=== PATIENT | male | born 1975 | race African-American/Black ===

== ENCOUNTER 2016-09-14 08:37 | Inpatient (IN) | payer MEDICAID ==
[~2016-09-14] VITALS: Ht 177.8 cm; Wt 72.6 kg
[~2016-09-14 08:37] MED LIST: ALBUTEROL SULF8.5 GM INH; DIGOXIN0.25 MG/5 GT; IPRATROPIU0.2 MG/1 M HHN; LACTULOSE20 GM/301 ORAL; LOVENOX10 M4 SUBQ; METOPROLOL TAR100 M1 GT; MIDODRINE HCL2.5 MG GT; NORCO 5-325 TA1 EACH ORAL; PANTOPRAZOLE SO40 MG GT; PHENYTOIN SODI100 MG GT; REGLAN5 MG GT; TEGRETOL200 MG GT; VALPROIC A250 MG/5 M PO; VANCOMYCIN1 GM/250 M IVPB; VITAMIN C500 M1 GT; ZOSYN 3.373.375 GM/1 IVPB
--- NOTE | 2016-09-14 08:38 | Emergency Room Report ---
History of Present Illness General Source: EMS Present Illness HPI Patient is a 41-year-old male with prior history of a persistent vegetative state the sent in by ambulance for increased heart rate. Patient was noted to have a prior history of being a G-tube in a dependent. The patient was noted to have increasing tachycardia. Patient was noted to have sinus tachycardia by paramedics. Patient was given digoxin by nursing staff with improvement in his heart rate. Patient was noted initially to have a heart rate approximately 180 Allergies: Coded Allergies: No Known Allergies (Unverified , 07/21/16) Patient History Past Medical History: see triage record Reviewed Nursing Documentation: PMH: Agreed, PSxH: Agreed Review of Systems All Other Systems: limited - by mental status Physical Exam Sp02 EP Interpretation: normal General Appearance: normal inspection, no apparent distress, other - Eyes open , doesn't follow command or withdraw. Head: normocephalic Eyes: bilateral eye PERRL ENT: normal pharynx Neck: other, tracheotomy Respiratory: chest non-tender, lungs clear, normal breath sounds Cardiovascular #1: tachycardia Gastrointestinal: normal bowel sounds, non tender, soft, other - gtube Musculoskeletal: other - decreased rom Neurologic: motor weakness, sensory deficit, Babinski Psychiatric: other Skin: other - multiple decubitus ulcers Procedures Critical Care Time Critical Care Time Patient had a critical medical condition which untreated could potentially result in life or limb threatening injury. Total critical care time excluding procedures approximately 45 minutes. Medical Decision Making Diagnostic Impression: Primary Impression: Tachycardia Additional Impressions: Severe sepsis Urinary tract infection Anemia Abnormal LFTs ER Course Patient presented for tachycardia. Differential diagnoses included was not limited to sepsis, tracheostomy obstruction, pulmonary embolism, hyperthyroidism , seizure among others. Because of complexity of patient's case laboratory testing and imaging studies were ordered.Patient was noted to be vent dependent was started on mechanical ventilation. Patient was noted to be febrile with a temperature greater than 103. The patient given rectal Tylenol. Blood cultures are obtained. The patient was noted to have indwelling left upper extremity PICC line. There is no surrounding erythema. DVT ultrasound was ordered due to patient's immobility and tachycardia. The patient was given IV fluids. Serum lactate was noted to be elevated consistent with severe sepsis. Dr. Wakefield was contacted for inpatient management Labs Test 09/14/16 08:40 09/14/16 08:50 09/14/16 09:23 White Blood Count 21.5 K/UL (4.8-10.8) Red Blood Count 3.05 M/UL (4.70-6.10) Hemoglobin 9.6 G/DL (14.2-18.0) Hematocrit 29.7 % (42.0-52.0) Mean Corpuscular Volume 97 FL (80-99) Mean Corpuscular Hemoglobin 31.3 PG (27.0-31.0) Mean Corpuscular Hemoglobin Concent 32.2 G/DL (32.0-36.0) Red Cell Distribution Width 16.2 % (11.6-14.8) Platelet Count 633 K/UL (150-450) Mean Platelet Volume 6.0 FL (6.5-10.1) Neutrophils (%) (Auto) % (45.0-75.0) Lymphocytes (%) (Auto) % (20.0-45.0) Monocytes (%) (Auto) % (1.0-10.0) Eosinophils (%) (Auto) % (0.0-3.0) Basophils (%) (Auto) % (0.0-2.0) Sodium Level 136 mEQ/L (135-145) Potassium Level 4.1 mEQ/L (3.4-4.9) Chloride Level 90 mEQ/L (98-107) Carbon Dioxide Level 30 mEQ/L (20-30) Anion Gap 16 (5-15) Blood Urea Nitrogen 22 mg/dL (7-23) Creatinine 0.6 mg/dL (0.7-1.2) Estimat Glomerular Filtration Rate > 60 mL/min (>60) Glucose Level 265 mg/dL (74-106) Lactic Acid Level 2.80 mmol/L (0.66-2.22) Calcium Level 9.2 mg/dL (8.6-10.2) Total Bilirubin 0.6 mg/dL (0.0-1.2) Aspartate Amino Transf (AST/SGOT) 151 U/L (5-40) Alanine Aminotransferase (ALT/SGPT) 139 U/L (3-41) Alkaline Phosphatase 1160 U/L (40-129) Total Creatine Kinase 34 U/L (38-174) Creatine Kinase MB 2.1 ng/mL (< 6.7) Creatine Kinase MB Relative Index 6.1 Troponin I < 0.30 ng/mL (<=0.30) Pro-B-Type Natriuretic Peptide 141 pg/mL (0-125) Total Protein 7.5 g/dL (6.6-8.7) Albumin 2.8 g/dL (3.5-5.2) Globulin 4.7 g/dL Albumin/Globulin Ratio 0.5 (1.0-2.7) Lipase 13 U/L (< 60) Digoxin Level 1.0 ng/mL (0.5-2.0) Urine Color Yellow Urine Appearance Slightly cloudy Urine pH 7 (4.5-8.0) Urine Specific Elmo 1.010 (1.005-1.035) Urine Protein 3+ (NEGATIVE) Urine Glucose (UA) 3+ (NEGATIVE) Urine Ketones Negative (NEGATIVE) Urine Occult Blood 4+ (NEGATIVE) Urine Nitrite Negative (NEGATIVE) Urine Bilirubin Negative (NEGATIVE) Urine Urobilinogen 1 MG/DL (0.0-1.0) Urine Leukocyte Esterase 3+ (NEGATIVE) Urine RBC 5-10 /HPF (0 - 0) Urine WBC 40-60 /HPF (0 - 0) Urine Squamous Epithelial Cells Occasional /LPF Urine Bacteria Few /HPF (NONE) Arterial Blood pH 7.498 (7.350-7.450) Arterial Blood Partial Pressure CO2 39.0 mmHg (35.0-45.0) Arterial Blood Partial Pressure O2 107.9 mmHg (75.0-100.0) Arterial Blood HCO3 29.6 mmol/L (22.0-26.0) Arterial Blood Oxygen Saturation 97.8 % (92.0-98.0) Arterial Blood Base Excess 6.0 Dewey Test Positive EKG Diagnostic Results Rate: tachycardiac - 120 ST Segments: no acute changes ASA given to the pt in ED: No Rhythm Strip Diag. Results EP Interpretation: yes Rhythm: no PVC's, no ectopy, other - sinus tachycardia Chest X-Ray Diagnostic Results EP Interpretation: Yes Findings: no consolidation, no effusion, no pneumothorax, no acute cardiopulmonary disease Number of Views: 1 Status: unchanged Disposition: ADMITTED INPATIENT Condition: Critical Arden Garcia Sep 14, 2016 08:38
[2016-09-14] MEDS ORDERED: Acetaminophen 650 MG SUPP RECTAL ONE ×2 (08:44→08:45)
[2016-09-14] MEDS ORDERED: Vancomycin 1 GM in NS 275 ML IV ONE (08:45)
[2016-09-14 08:50] VITALS: BP 115/75
[2016-09-14] MEDS ORDERED: Cefepime 1gm vial ONE (08:54)
[2016-09-14 09:00] LABS: MEAN CORPUSCULAR HEMOGLOBIN 31.3 PG (27.0-31.0); MEAN CORPUSCULAR HGB CONC 32.2 G/DL (32.0-36.0); MEAN CORPUSCULAR VOLUME 97 FL (80-99); PLATELET COUNT 633 K/UL (150-450); RED BLOOD COUNT 3.05 M/UL (4.70-6.10); RED CELL DISTRIBUTION WIDTH 16.2 % (11.6-14.8); WHITE BLOOD COUNT 21.5 K/UL (4.8-10.8)
[2016-09-14] MEDS: Cefepime HCl 1 GM in NS 55 ML IV SCH ×2 (09:01→13:34)
[2016-09-14 09:16] LABS: APPEARANCE,URINE SLIGHTLY CLOUDY; KETONES,URINE NEGATIVE (NEGATIVE); LEUKOCYTE ESTERASE ,URINE 3+ (NEGATIVE); NITRITE,URINE NEGATIVE (NEGATIVE); PH,URINE 7 (4.5-8.0); PROTEIN,URINE 3+ (NEGATIVE); UROBILINOGEN,URINE 1 MG/DL (0.0-1.0)
[2016-09-14 09:29] LABS: TROPONIN I < 0.30 ng/mL (<=0.30)
[2016-09-14 09:29] LABS: BACTERIA,URINE FEW /HPF; SQUAMOUS EPITHELIAL CELL,UR OCCASIONAL /LPF (NONE/OCC); WBC,URINE 40-60 /HPF (0 - 0)
[2016-09-14 09:31] LABS: ABG ALLEN TEST POSITIVE
[2016-09-14 09:32] LABS: ALANINE AMINOTRANSFERASE 139 U/L (3-41); ALBUMIN/GLOBULIN RATIO 0.5 (1.0-2.7); ANION GAP 16 (5-15); ASPARTATE AMINO TRANSFERASE 151 U/L (5-40); CALCIUM 9.2 mg/dL (8.6-10.2); CARBON DIOXIDE 30 mEQ/L (20-30); CHLORIDE 90 mEQ/L (98-107); CREATININE 0.6 mg/dL (0.7-1.2); GLOMERULAR FILTRATION RATE > 60 mL/min (>60); HEMOLYSIS 0; LIPASE 13 U/L (< 60); POTASSIUM 4.1 mEQ/L (3.4-4.9); REFLEX LACTIC ACID YES OR NO YES; SODIUM 136 mEQ/L (135-145); TOTAL PROTEIN 7.5 g/dL (6.6-8.7)
[2016-09-14] MEDS ORDERED: DULCOLAX10 MG RC (09:33)
[2016-09-14] MEDS ORDERED: DOCUSATE SODIU100 MG GT (09:33)
[2016-09-14] MEDS ORDERED: FLEET ENEMA133 ML RECTAL (09:35)
[2016-09-14] MEDS ORDERED: GEMFIBROZIL600 MG GT (09:35)
[2016-09-14] MEDS ORDERED: LANTUS SOL100 UNIT/1 SUBQ (09:36)
[2016-09-14] MEDS ORDERED: MILK OF MA400 MG/51 GT (09:36)
[2016-09-14 09:43] LABS: CKMB 2.1 ng/mL (< 6.7)
[2016-09-14] MEDS ORDERED: Vancomycin 1gm inj IVPB ONE (09:47)
[2016-09-14] MEDS: metroNIDAZOLE 500mg 100 ML IV SCH ×2 (09:48→13:33)
[2016-09-14] MEDS ORDERED: PROMOD946 ML GT (10:05)
[2016-09-14] MEDS ORDERED: UTI-STAT L3875 MG/31 GT (10:05)
[2016-09-14] MEDS ORDERED: ACETAMINOP160 MG/5 M GT (10:05)
[2016-09-14] MEDS ORDERED: VITAMIN C500 MG/11 PO (10:05)
[2016-09-14 10:06] LABS: BAND NEUTROPHILS % (MANUAL) 7 % (0-8); BASOPHILS % (MANUAL) 0 % (0-2); EOSINOPHILS % (MANUAL) 0 % (0-3); HYPOCHROMASIA 2+; LYMPHOCYTES % (MANUAL) 3 % (20-45); NEUTROPHILS % (MANUAL) 88 % (45-75); PLATELET ESTIMATE INCREASED; TOTAL CELLS COUNTED 100
[2016-09-14 10:07] LABS: ANISOCYTOSIS 1+; PLATELET MORPHOLOGY NORMAL
[2016-09-14] MEDS ORDERED: EPOGEN20000 UNIT SUBQ (10:07)
[2016-09-14] MEDS ORDERED: ZINC SULFATE220 M1 GT (10:07)
[2016-09-14 10:10] VITALS: BP 120/69
[2016-09-14 11:58] VITALS: BP 127/71
[2016-09-14 12:00] VITALS: BP 113/65
--- NOTE | 2016-09-14 12:57 | Diagnostic Imaging Report ---
Indication: SOB Technique: One view of the chest Comparison: 07/26/2016 Findings: Tracheostomy, left arm PICC are again demonstrated. Previously demonstrated right mid and lower lung infiltrates have resolved. There is equivocally some reticulonodular opacity in the left infrahilar region Impression: Equivocal left infrahilar reticulonodular infiltrate Resolved, since 07/26/2016, right perihilar and infrahilar infiltrate
[2016-09-14] MEDS ORDERED: Lactulose 20gm/30ml UDC ORAL PRN (15:45)
[2016-09-14] MEDS ORDERED: Acetaminophen Soln 160mg/5ml ORAL PRN (15:45)
[2016-09-14] MEDS ORDERED: Milk of Magnesia 30ml Ud GT PRN (15:45)
[2016-09-14] MEDS ORDERED: Fleet's Enema 133ml RECTAL PRN (15:45)
[2016-09-14] MEDS ORDERED: Ipratropium 0.02% Inh Soln 2.5ml UD HHN PRN (15:45)
[2016-09-14] MEDS ORDERED: Albuterol 90mcg Inhaler 8gm INH PRN (15:45)
[2016-09-14] MEDS ORDERED: Norco 5mg/325mg tab ORAL PRN (15:45)
[2016-09-14 16:00] VITALS: BP 112/63
[2016-09-14] MEDS: NovoLOG Insulin Flexpen SUBQ SCH ×2 (17:30→21:00)
[2016-09-14] MEDS ORDERED: Metoclopramide 10mg/10ml Liq GT PRN (18:00)
[2016-09-14] MEDS: Docusate 100mg tablet GT SCH (18:13)
[2016-09-14] MEDS: carBAMazepine 200mg tab GT SCH (18:14)
[2016-09-14] MEDS: Phenytoin Susp 100mg/4ml GT SCH (18:14)
[2016-09-14] MEDS: Acetaminophen 650mg/20.3ml ORAL PRN (18:15)
[2016-09-14] MEDS: Vancomycin 1gm/D5W 275ml IVPB SCH ×2 (19:21)
[2016-09-14 20:00] VITALS: BP 120/73
[2016-09-14] MEDS: Levemir Flexpen SUBQ SCH (21:37)
[2016-09-14] MEDS: Valproic Acid 250mg/5ml Liquid NG SCH (21:38)
[2016-09-14] MEDS: Cefepime HCl 1 GM in D5W 55 ML IVPB SCH (21:39)
[2016-09-14] MEDS: Epogen (for non ESRD use) SUBQ SCH (21:41)
[2016-09-15] VITALS: BP 136/70
[2016-09-15] MEDS: NovoLOG Insulin Flexpen SUBQ SCH ×4 (00:07→17:19)
[2016-09-15] MEDS: Acetaminophen 650mg/20.3ml ORAL PRN (00:21)
[2016-09-15 04:00] VITALS: BP 104/65
[2016-09-15] MEDS: Vancomycin 1gm/D5W 275ml IVPB SCH ×6 (05:35→22:32)
[2016-09-15 05:55] LABS: MEAN CORPUSCULAR HGB CONC 31.7 G/DL (32.0-36.0); MEAN CORPUSCULAR VOLUME 101 FL (80-99); MEAN PLATELET VOLUME 5.2 FL (6.5-10.1); PLATELET COUNT 421 K/UL (150-450); RED BLOOD COUNT 2.66 M/UL (4.70-6.10); RED CELL DISTRIBUTION WIDTH 15.8 % (11.6-14.8); WHITE BLOOD COUNT 19.2 K/UL (4.8-10.8)
[2016-09-15 06:15] LABS: ALANINE AMINOTRANSFERASE 100 U/L (3-41); ALBUMIN/GLOBULIN RATIO 0.5 (1.0-2.7); ANION GAP 14 (5-15); ASPARTATE AMINO TRANSFERASE 90 U/L (5-40); CALCIUM 9.2 mg/dL (8.6-10.2); CARBON DIOXIDE 30 mEQ/L (20-30); CHLORIDE 100 mEQ/L (98-107); CREATININE 0.5 mg/dL (0.7-1.2); GLOMERULAR FILTRATION RATE > 60 mL/min (>60); HEMOLYSIS 0; SODIUM 144 mEQ/L (135-145); TOTAL PROTEIN 6.7 g/dL (6.6-8.7)
[2016-09-15 06:58] LABS: BILIRUBIN,DIRECT 0.9 mg/dL (0.1-0.3)
--- NOTE | 2016-09-15 07:19 | Wound Care Consultation ---
Wound Assessment Wound Assessment #1: Wound Number: #1 Wound Present on Admission: Yes New Wound: No Status Change of Wound: No Wound Location Body Site Modif: right Wound Location Body Site: ear Wound Type: pressure ulcer Chinyere Test: Does not Chinyere Pressure Ulcer Stage: IV/unstageable Wound Thickness: Full Thickness Wound Length: 2.0 Wound Width: 1.0 Wound Depth: UTD Percent of Wound Calhan/Red: 50 Percent of Wound Black/Brown: 50 Wound Drainage Description: Serosanguineous Wound Drainage Amount: Scant Wound Drainage Odor: None/Absent Tissue Surrounding Wound: Macerated Wound General Appearance: Reddened, Draining, Necrotic Wound Assessment #2: Wound Number: #2 Wound Present on Admission: Yes New Wound: No Status Change of Wound: No Wound Location Body Site Modif: left Wound Location Body Site: malleolus/ankle Wound Type: pressure ulcer Chinyere Test: Does not Chinyere Pressure Ulcer Stage: IV/unstageable Wound Thickness: Full Thickness Wound Length: 1.5 Wound Width: 1.0 Wound Depth: UTD Percent of Wound Bed Yellow/Wh: 50 - DRY HARD SCAB ADHERED Percent of Wound Black/Brown: 50 - DRY HARD SCAB ADHERD Wound Drainage Amount: None Wound Drainage Odor: None/Absent Tissue Surrounding Wound: DRY SCALY SKIN Wound General Appearance: Necrotic Wound Assessment #3: Wound Number: #3 Wound Present on Admission: Yes New Wound: No Status Change of Wound: No Wound Location Body Site Modif: left Wound Location Body Site: heel Wound Type: pressure ulcer Chinyere Test: Does not Chinyere Pressure Ulcer Stage: deep tissue injury Wound Thickness: Full Thickness Wound Length: 3.5 Wound Width: 3.5 Wound Depth: UTD Percent of Wound Purple/Maroon: 100 Wound Drainage Amount: None Wound Drainage Odor: None/Absent Tissue Surrounding Wound: Erythemic Wound General Appearance: Reddened - SURROUNDING TISSUE IS RED , DTI NOTED 100% MAROON COLOR Wound Assessment #4: Wound Number: #4 Wound Present on Admission: Yes New Wound: No Status Change of Wound: No Wound Location Body Site Modif: left Wound Location Body Site: toe - 1ST BIG TOE Wound Type: pressure ulcer Chinyere Test: Does not Chinyere Pressure Ulcer Stage: IV/unstageable Wound Thickness: Full Thickness Wound Length: 1.0 Wound Width: 1.0 Wound Depth: UTD Percent of Wound Bed Yellow/Wh: 100 - DRY YELLOW ADHERED SCABS Wound Drainage Amount: None Wound Drainage Odor: None/Absent Tissue Surrounding Wound: Intact Wound General Appearance: Necrotic - YELLOW SCABS Wound Assessment #5: Wound Number: #5 Wound Present on Admission: Yes New Wound: No Status Change of Wound: No Wound Location Body Site Modif: right, lower, posterior Wound Location Body Site: malleolus/ankle Wound Type: pressure ulcer Chinyere Test: Does not Chinyere Pressure Ulcer Stage: IV/unstageable Wound Thickness: Full Thickness Wound Length: 1.5 Wound Width: 1.5 Wound Depth: 0.2 Percent of Wound Calhan/Red: 100 Wound Drainage Description: Serosanguineous Wound Drainage Amount: Scant Wound Drainage Odor: None/Absent Tissue Surrounding Wound: Macerated Wound General Appearance: Reddened, Draining Wound Assessment #6: Wound Number: #6 Wound Present on Admission: Yes New Wound: No Status Change of Wound: No Wound Location Body Site Modif: right Wound Location Body Site: heel Wound Type: pressure ulcer Chinyere Test: Does not Chinyere Pressure Ulcer Stage: deep tissue injury Wound Thickness: Full Thickness Wound Length: 3.0 Wound Width: 5.0 Wound Depth: UTD Percent of Wound Purple/Maroon: 100 Wound Drainage Amount: None Wound Drainage Odor: None/Absent Tissue Surrounding Wound: Erythemic Wound General Appearance: Reddened - SURROUNDING TISSUE IS RED , DTI IS 100 % MAROON COLOR. Wound Assessment #7: Wound Number: #7 Wound Present on Admission: Yes New Wound: No Status Change of Wound: No Wound Location Body Site Modif: mid Wound Location Body Site: sacral Wound Type: pressure ulcer Chinyere Test: Does not Chinyere Pressure Ulcer Stage: IV/unstageable Wound Thickness: Full Thickness Wound Length: 9.0 Wound Width: 10.0 Wound Depth: 2.0 Percent of Wound Calhan/Red: 70 Percent of Wound Bed Yellow/Wh: 10 Percent of Wound Purple/Maroon: 20 Wound Drainage Description: Serosanguineous Wound Drainage Amount: Copious Wound Drainage Odor: Mild Odor Tissue Surrounding Wound: Macerated Wound Undermining at 12:00: 5.0 Wound Undermining at 3:00: 4.0 Wound Undermining at 6:00: 1.5 Wound Undermining at 9:00: 6.0 Wound General Appearance: Reddened, Draining, Necrotic, Bone Palpable, Muscle Visible Wound Assessment #8: Wound Number: #8 Wound Present on Admission: Yes New Wound: No Status Change of Wound: No Wound Location Body Site Modif: left Wound Location Body Site: ischial tuberosity Wound Type: pressure ulcer Chinyere Test: Does not Chinyere Pressure Ulcer Stage: III Wound Thickness: Full Thickness Wound Length: 1.5 Wound Width: 1.5 Wound Depth: 0.3 Percent of Wound Calhan/Red: 100 Wound Drainage Description: Serosanguineous Wound Drainage Amount: Scant Wound Drainage Odor: None/Absent Tissue Surrounding Wound: Macerated Wound General Appearance: Reddened Wound Assessment #9: Wound Number: #9 Wound Present on Admission: Yes New Wound: No Status Change of Wound: No Wound Location Body Site Modif: left, upper, posterior Wound Location Body Site: scapula Wound Type: pressure ulcer Chinyere Test: Does not Chinyere Pressure Ulcer Stage: IV/unstageable Wound Thickness: Full Thickness Wound Length: 4.5 Wound Width: 4.5 Wound Depth: UTD Percent of Wound Bed Yellow/Wh: 50 Percent of Wound Black/Brown: 50 Wound Drainage Description: Serosanguineous Wound Drainage Amount: Moderate Wound Drainage Odor: None/Absent Tissue Surrounding Wound: Macerated Wound General Appearance: Reddened - SURROUNDING TISSUE , Necrotic Wound Assessment #10: Wound Number: #10 Wound Present on Admission: Yes New Wound: No Status Change of Wound: No Wound Location Body Site Modif: right, upper, posterior Wound Location Body Site: scapula Wound Type: pressure ulcer Chinyere Test: Does not Chinyere Pressure Ulcer Stage: IV/unstageable Wound Thickness: Full Thickness Wound Length: 5.5 Wound Width: 5.5 Wound Depth: UTD Percent of Wound Calhan/Red: 70 Percent of Wound Bed Yellow/Wh: 30 Wound Drainage Description: Serosanguineous Wound Drainage Amount: Moderate Wound Drainage Odor: None/Absent Tissue Surrounding Wound: Macerated Wound General Appearance: Reddened, Draining, Necrotic, Muscle Visible Wound Comment #1 Right ear pressure ulcer stage IV/Unstageable. #2 Left malleolus pressure ulcer stage IV/Unstageable. #3 Left heel pressure ulcer Deep tissue injury. #4 Left 1st big toe pressure ulcer stage IV/Unstageable. #5 Right posterior ankle pressure ulcer stage IV/Unstageable. #6 Right heel pressure ulcer Deep tissue injury. #7 Mid Sacral pressure ulcer stage IV/Unstageable. #8 Left ischial tuberosity pressure ulcer stage III. #9 Left posterior upper scapula pressure ulcer stage IV/Unstageable. #10 Right posterior upper scapula pressure ulcer stage IV/Unstageable. Recommendation -Apply Low air loss with AP p200 for wound management. -Local wound care as ordered. -Optimize nutrition. -Turn and reposition. -Keep clean and dry. -Avoid shear and friction. -Apply heel protectors. -Offload both heels and feet. -Assess and notify MD if change of condition noted. JUDI RAMOS Sep 15, 2016 07:19
--- NOTE | 2016-09-15 07:41 | General Progress Note ---
Assessment/Plan Assessment/Plan Respiratory failure tachycardia sepsis Bacteremia ALOC leukocytosis Anemia PLAN IV antibiotics care noted and reviewed guarded overall ID evaluation add Amikacin Echo Subjective Allergies: Coded Allergies: No Known Allergies (Unverified , 07/21/16) Subjective care noted Bcx positive sugars low Objective Last 24 Hour Vital Signs Date Time Temp Pulse Resp B/P Pulse Ox O2 Delivery O2 Flow Rate FiO2 09/15/16 06:57 100 20 50 09/15/16 04:53 104 30 50 09/15/16 04:00 50 09/15/16 04:00 99.1 72 20 104/65 97 Mechanical Ventilator 50 09/15/16 04:00 88 09/15/16 03:30 105 30 50 09/15/16 01:30 117 30 50 09/15/16 00:51 100.4 09/15/16 00:00 99.0 129 30 136/70 97 Mechanical Ventilator 50 09/15/16 00:00 50 09/15/16 00:00 100.0 129 30 136/70 97 Mechanical Ventilator 50 09/15/16 00:00 126 09/14/16 23:26 124 30 50 09/14/16 21:39 121 130/73 09/14/16 21:25 110 33 50 09/14/16 20:00 98.2 117 16 120/73 97 Mechanical Ventilator 50 09/14/16 20:00 50 09/14/16 20:00 115 09/14/16 19:08 110 24 50 09/14/16 17:13 112 30 50 09/14/16 16:00 97.9 118 28 112/63 98 Mechanical Ventilator 09/14/16 16:00 50 09/14/16 16:00 119 09/14/16 14:25 115 31 40 09/14/16 12:50 119 30 40 09/14/16 12:00 98.1 112 25 113/65 96 Mechanical Ventilator 40 09/14/16 11:58 101.2 114 35 127/71 100 Mechanical Ventilator 40 09/14/16 11:18 122 34 107/62 99 Mechanical Ventilator 09/14/16 10:30 121 33 40 09/14/16 10:10 102.1 120 31 120/69 99 Mechanical Ventilator 40 09/14/16 09:29 102.1 09/14/16 08:50 103.0 122 30 115/75 99 Mechanical Ventilator 40 09/14/16 08:45 40 09/14/16 08:45 125 31 Mechanical Ventilator 40 09/14/16 08:34 123 32 122/75 100 Mechanical Ventilator 40 09/14/16 08:30 123 31 40 09/14/16 08:30 123 31 Mechanical Ventilator 15.0 40 Intake and Output 09/14/16 09/15/16 19:00 07:00 Intake Total 1510 ml 1770 ml Output Total 380 ml 1600 ml Balance 1130 ml 170 ml Intake Free Water 100 ml IV Total 1450 ml 1400 ml Tube Feeding 270 ml Other 60 ml Output Urine Total 380 ml 1600 ml # Bowel Movements 1 2 Laboratory Tests 09/14/16 08:40: White Blood Count 21.5H, Red Blood Count 3.05L, Hemoglobin 9.6L, Hematocrit 29.7L, Mean Corpuscular Volume 97, Mean Corpuscular Hemoglobin 31.3H, Mean Corpuscular Hemoglobin Concent 32.2, Red Cell Distribution Width 16.2H, Platelet Count 633H, Mean Platelet Volume 6.0L, Neutrophils (%) (Auto) , Lymphocytes (%) (Auto) , Monocytes (%) (Auto) , Eosinophils (%) (Auto) , Basophils (%) (Auto) , Differential Total Cells Counted 100, Neutrophils % ( Manual) 88H, Lymphocytes % (Manual) 3L, Monocytes % (Manual) 2, Eosinophils % ( Manual) 0, Basophils % (Manual) 0, Band Neutrophils 7, Platelet Estimate IncreasedH, Platelet Morphology Normal, Hypochromasia 2+, Anisocytosis 1+, Sodium Level 136, Potassium Level 4.1, Chloride Level 90L, Carbon Dioxide Level 30, Anion Gap 16H, Blood Urea Nitrogen 22, Creatinine 0.6L, Estimat Glomerular Filtration Rate > 60, Glucose Level 265H, Lactic Acid Level 2.80H, Calcium Level 9.2, Total Bilirubin 0.6, Aspartate Amino Transf (AST/SGOT) 151H, Alanine Aminotransferase (ALT/SGPT) 139H, Alkaline Phosphatase 1160H, Total Creatine Kinase 34L, Creatine Kinase MB 2.1, Creatine Kinase MB Relative Index 6.1, Troponin I < 0.30, Pro-B-Type Natriuretic Peptide 141H, Total Protein 7.5, Albumin 2.8L, Globulin 4.7, Albumin/Globulin Ratio 0.5L, Lipase 13, Digoxin Level 1.0 09/14/16 08:50: Urine Color Yellow, Urine Appearance Slightly cloudy, Urine pH 7, Urine Specific Pyrites 1.010, Urine Protein 3+H, Urine Glucose (UA) 3+H, Urine Ketones Negative, Urine Occult Blood 4+H, Urine Nitrite Negative, Urine Bilirubin Negative, Urine Urobilinogen 1H, Urine Leukocyte Esterase 3+H, Urine RBC 5-10H, Urine WBC 40-60H, Urine Squamous Epithelial Cells Occasional, Urine Bacteria Few 09/14/16 09:23: Arterial Blood pH 7.498H, Arterial Blood Partial Pressure CO2 39.0, Arterial Blood Partial Pressure O2 107.9H, Arterial Blood HCO3 29.6H, Arterial Blood Oxygen Saturation 97.8, Arterial Blood Base Excess 6.0, Dewey Test Positive 09/14/16 10:01: Lactic Acid Level 2.30H 09/15/16 03:10: White Blood Count 19.2H, Red Blood Count 2.66L, Hemoglobin 8.5L, Hematocrit 26.9L, Mean Corpuscular Volume 101H, Mean Corpuscular Hemoglobin 32.0H, Mean Corpuscular Hemoglobin Concent 31.7L, Red Cell Distribution Width 15.8H, Platelet Count 421, Mean Platelet Volume 5.2L, Neutrophils (%) (Auto) , Lymphocytes (%) (Auto) , Monocytes (%) (Auto) , Eosinophils (%) (Auto) , Basophils (%) (Auto) , Neutrophils % (Manual) [Pending], Lymphocytes % (Manual) [Pending], Platelet Estimate [Pending], Platelet Morphology [Pending], Sodium Level 144, Potassium Level 3.0L, Chloride Level 100, Carbon Dioxide Level 30, Anion Gap 14, Blood Urea Nitrogen 18, Creatinine 0.5L, Estimat Glomerular Filtration Rate > 60, Glucose Level 6#*L, Lactic Acid Level 0.90, Calcium Level 9.2, Total Bilirubin 1.3H, Direct Bilirubin 0.9H, Aspartate Amino Transf (AST/ SGOT) 90H, Alanine Aminotransferase (ALT/SGPT) 100H, Alkaline Phosphatase 986H, Total Protein 6.7, Albumin 2.5L, Globulin 4.2, Albumin/Globulin Ratio 0.5L Height (Feet): 5 Height (Inches): 10.00 Weight (Pounds): 160 Objective WDWN NAD clear breath sounds bilaterally without rhonchi or wheeze [id number] without MRG NABS nontender no HSM; GT no CCE nonfocal poor LOC LAURA ROSENBAUM Sep 15, 2016 07:41
[2016-09-15 08:00] VITALS: BP 130/49
[2016-09-15] MEDS ORDERED: KCl 10% 40mEq/30ml liquid GT ONE (08:00)
[2016-09-15 08:22] LABS: BAND NEUTROPHILS % (MANUAL) 10 % (0-8); LYMPHOCYTES % (MANUAL) 4 % (20-45); NEUTROPHILS % (MANUAL) 85 % (45-75); TOTAL CELLS COUNTED 100
[2016-09-15 08:24] LABS: ANISOCYTOSIS 1+; BASOPHILS % (MANUAL) 0 % (0-2); EOSINOPHILS % (MANUAL) 0 % (0-3); HYPOCHROMASIA 1+; PLATELET ESTIMATE INCREASED; PLATELET MORPHOLOGY NORMAL
[2016-09-15 08:25] LABS: MACROCYTES 1+
[2016-09-15] MEDS ORDERED: Heparin 5000 units/ml inj SUBQ ONE (09:00)
[2016-09-15] MEDS ORDERED: Ascorbic Acid 500mg tab ORAL SCH (09:00)
[2016-09-15 09:38] LABS: ABG ALLEN TEST POSITIVE; ABG BASE EXCESS 2.6; ABG PCO2 42.7 mmHg (35.0-45.0)
[2016-09-15] MEDS: Pantoprazole Inj IVP SCH (09:40)
[2016-09-15] MEDS: Digoxin Elixir 0.125mg GT SCH (09:40)
[2016-09-15] MEDS: Ascorbic Acid 500mg tab GT SCH (09:41)
[2016-09-15] MEDS: Valproic Acid 250mg/5ml Liquid NG SCH ×2 (09:41→22:31)
[2016-09-15] MEDS: Phenytoin Susp 100mg/4ml GT SCH ×2 (09:41→12:30)
[2016-09-15] MEDS: Zinc Sulfate 220mg cap GT SCH (09:42)
[2016-09-15] MEDS: Docusate 100mg tablet GT SCH ×2 (09:42→17:17)
[2016-09-15] MEDS: carBAMazepine 200mg tab GT SCH ×3 (09:43→17:18)
[2016-09-15] MEDS: Cefepime HCl 1 GM in D5W 55 ML IVPB SCH (09:54)
[2016-09-15] MEDS ORDERED: Amikacin 1,000 MG in D5W 110 ML IV SCH (10:00)
[2016-09-15] MEDS ORDERED: Meropenem 500 MG in NS 55 ML IVPB SCH (11:00)
[2016-09-15] MEDS: Enoxaparin 40mg Inj SUBQ SCH (11:01)
[2016-09-15 12:00] VITALS: BP 152/76
--- NOTE | 2016-09-15 12:46 | Cardiology Report ---
APPROVED REPORT EXAM: Two-dimensional and M-mode echocardiogram with Doppler and color Doppler. INDICATION OTHER M-Mode DIMENSIONS IVSd1.0 (0.7-1.1cm)Left Atrium (MM)2.9 (1.6-4.0cm) LVDd5.0 (3.5-5.6cm)Aortic Root3.4 (2.0-3.7cm) PWd0.9 (0.7-1.1cm)Aortic Cusp Exc.1.8 (1.5-2.0cm) LVDs3.7 (2.5-4.0cm) PWs1.2 cm Technically difficult study due to poor acoustic windows. Images taken from subcostal. Normal left ventricular chamber size, systolic function and wall motion. Left ventricular ejection fraction estimated to be 50-55%. No evidence of left ventricular hypertrophy. No evidence of pericardial fat or effusion. All other cardiac chamber sizes are within normal limits. Focal aortic valve sclerosis with adequate cusp excursion Thickened mitral valve leaflets with normal excursion. Mitral annulus and aortic root calcification. Pulmonic valve not well visualized. Normal tricuspid valve structure. IVC is normal in size with physiologic collapse. A color flow and spectral Doppler study was performed and revealed: No aortic regurgitation. Trace mitral regurgitation. Normal left ventricular diastolic dysfunction. Mild tricuspid regurgitation. Tricuspid systolic velocities suggests peak right ventricular systolic pressure of 28 mmHg
[2016-09-15] MEDS: Zoysn 3.37gm in D5W 110ml IVPB SCH ×2 (14:26→22:32)
--- NOTE | 2016-09-15 14:39 | Cardiology Report ---
APPROVED REPORT EKG Measurement Heart [id number] ME [id number] Sinus tachycardia Rightward axis Borderline ECG
[2016-09-15 16:00] VITALS: BP 122/79
[2016-09-15] MEDS: PHENYTOIN IVPB SCH ×2 (16:14→16:33)
[2016-09-15] MEDS: NS IVPB SCH ×2 (16:14→16:33)
[2016-09-15] MEDS ORDERED: NS IVPB SCH (18:00)
[2016-09-15] MEDS ORDERED: PHENYTOIN IVPB SCH (18:00)
[2016-09-15] MEDS ORDERED: Tubing IV Secondary IV ONE ×2 (18:02→18:40)
[2016-09-15] MEDS ORDERED: NS 275ml ONE (18:40)
[2016-09-15 20:00] VITALS: BP 117/78
[2016-09-15] MEDS: Levemir Flexpen SUBQ SCH (21:00)
--- NOTE | 2016-09-15 21:09 | Consultation ---
DATE OF CONSULTATION: 09/15/2016 INFECTIOUS DISEASES CONSULTATION CONSULTING PHYSICIAN: Tracie Isaac M.D. REFERRING PHYSICIAN: Andres Wakefield M.D. REASON FOR CONSULTATION: Leukocytosis. HISTORY OF PRESENTING ILLNESS: This is a 41-year-old gentleman with history of persistent vegetative state with a G-tube placement and respiratory failure, status post tracheostomy, who comes in with increasing tachycardia. He was seen in [facility] where he was found to have leukocytosis, and an Infectious Diseases consultation has been obtained for sepsis and urinary tract infection. PAST MEDICAL HISTORY: 1. History of respiratory failure, status post tracheostomy. 2. Status post G-tube placement. 3. Persistent vegetative state. SOCIAL HISTORY: Unknown. FAMILY HISTORY: Unknown. REVIEW OF SYSTEMS: Unable to obtain currently. MEDICATIONS: As an inpatient, the patient is on collagenase, IV amikacin, ascorbic acid, Lovenox, Protonix, zinc sulfate, digoxin, insulin, cefepime, Epogen, Lopressor, valproic acid, IV vancomycin, carbamazepine, Colace, Lopid, Reglan, midodrine, Dilantin, Tylenol, albuterol, Dulcolax, [place], Atrovent, lactulose, milk of magnesia, and lorazepam. ALLERGIES: No known drug allergies. PHYSICAL EXAMINATION: VITAL SIGNS: Temperature of 99.1, T-max of 103, pulse of 98, respiratory rate of 20, blood pressure 129/86, and O2 saturation of 97%. HEENT: Pupils are equally reactive to light and accommodation. Mouth appears clean without thrush. NECK: Supple. No adenopathy. No JVD. CARDIOVASCULAR: Regular rate and rhythm. No murmurs. LUNGS: Wheezing noted bilaterally. ABDOMEN: Soft and nontender. G-tube site appears clean. EXTREMITIES: No cyanosis, no clubbing, no edema. Left arm PICC line noted. LABORATORY DATA: White count of 21.5 yesterday, white count 19.2 today, hemoglobin 8.5, hematocrit 26.9, MCV 101, platelet count of 421,000, and neutrophils of 85%. Sodium 144, potassium 3, chloride 100, bicarbonate 30, BUN 18, creatinine 0.5, glucose , calcium 9.2. Total bilirubin 1.3, direct bilirubin 0.9, AST 90, ALT 100, alkaline phosphatase 986, total protein 6.7, and albumin 2.5. UA showing 40 to 60 white cells. Urine culture growing gram-negative rods. Blood cultures growing gram-negative rods. Chest x-ray showing equivocal left infrahilar reticulonodular infiltrate. ASSESSMENT: 1. This is a 41-year-old gentleman with persistent vegetative state who comes in with tachycardia and is found to have gram-negative sepsis probably secondary to urinary tract infection. 2. Gram-negative urinary tract infection. 3. Leukocytosis is improving. 4. Respiratory failure. 5. Elevated liver function tests. PLAN: 1. Continue vancomycin. Discontinue cefepime and amikacin. 2. We will start the patient on meropenem. 3. We will follow up cultures and adjust antibiotics accordingly. 4. We will order an ultrasound abdomen. I would like to thank Dr. Wakefield for this consultation. Tracie Isaac M.D. DR: JACKLYN JOB#: [id number] CC: Andres Wakefield M.D.; Fax#: [phone]
[2016-09-16] VITALS: BP 105/55
[2016-09-16] MEDS: NovoLOG Insulin Flexpen SUBQ SCH ×4 (00:49→18:02)
[2016-09-16] MEDS: NS IVPB SCH ×3 (00:56→16:06)
[2016-09-16] MEDS: PHENYTOIN IVPB SCH ×3 (00:56→16:06)
[2016-09-16 04:00] VITALS: BP 110/55
[2016-09-16] MEDS: Vancomycin 1gm/D5W 275ml IVPB SCH ×6 (06:13→22:19)
[2016-09-16] MEDS: Zoysn 3.37gm in D5W 110ml IVPB SCH ×3 (06:14→22:18)
[2016-09-16 08:00] VITALS: BP 124/77
--- NOTE | 2016-09-16 08:20 | Infectious Diseases Prog Note ---
Assessment/Plan Assessment/Plan A: Gram negative sepsis Proteus UTI Multiple pressure ulcers VDRF Hypoglycemia Elevated transaminase Persistent vegetative state Anemia P: Continue Zosyn Change PICC line Subjective ROS Limited/Unobtainable: Yes Allergies: Coded Allergies: No Known Allergies (Unverified , 07/21/16) Objective Vital Signs Last 24 Hour Vital Signs Date Time Temp Pulse Resp B/P Pulse Ox O2 Delivery O2 Flow Rate FiO2 09/16/16 06:35 91 21 50 09/16/16 04:59 85 25 50 09/16/16 04:05 82 09/16/16 04:00 97.0 80 14 110/55 100 Mechanical Ventilator 50 09/16/16 04:00 50 09/16/16 03:00 95 19 50 09/16/16 01:37 91 19 50 09/16/16 00:00 50 09/16/16 00:00 100.0 89 14 105/55 100 Mechanical Ventilator 50 09/15/16 23:50 88 09/15/16 23:43 92 20 50 09/15/16 22:32 105 117/78 09/15/16 21:17 105 32 50 09/15/16 20:00 97.7 80 20 117/78 100 Mechanical Ventilator 50 09/15/16 20:00 50 09/15/16 20:00 95 20 50 09/15/16 20:00 98 09/15/16 16:49 94 22 50 09/15/16 16:00 86 09/15/16 16:00 50 09/15/16 16:00 97.8 86 22 122/79 100 Mechanical Ventilator 50 09/15/16 15:20 85 20 50 09/15/16 13:20 111 24 50 09/15/16 12:30 102 09/15/16 12:07 50 09/15/16 12:00 99.5 101 25 152/76 100 Mechanical Ventilator 50 09/15/16 10:43 103 21 50 09/15/16 09:43 98 129/86 09/15/16 09:40 98 09/15/16 09:23 100 20 50 Height (Feet): 5 Height (Inches): 10.00 Weight (Pounds): 160 General Appearance: no acute distress HEENT: status post trach Respiratory/Chest: lungs clear, other - on ventilator Cardiovascular: normal rate Abdomen: soft, non tender, other - GT feeding Extremities: no edema, other - Left arm PICC line Skin: ulcers Neurologic/Psychiatric: unresponsiveness Microbiology Date/Time Source Procedure Growth Status 09/14/16 08:40 Blood Blood Culture - Preliminary Gram Negative Bacillus 1 Resulted 09/14/16 08:20 Blood Blood Culture - Preliminary Gram Negative Bacillus 1 Resulted 09/14/16 08:50 Urine,Clean Catch Urine Culture - Preliminary Proteus Mirabilis Resulted 09/14/16 08:50 Rectum VRE Culture - Final Enterococcus Faecium - Vre Complete Laboratory Tests Test 09/15/16 21:30 Vancomycin Level Trough 14.5 ug/mL (5.0-12.0) H Current Medications Medications (Trade) Dose Ordered Sig/Guillermo Route PRN Reason Start Time Stop Time Status Last Admin Dose Admin Acetaminophen (Tylenol) 650 mg Q6H PRN ORAL Mild Pain/Temp > 100.5 09/14/16 16:00 10/14/16 15:59 09/15/16 00:21 Acetaminophen/ Hydrocodone Bitart ([place] 5/325) 1 tab Q4H PRN ORAL Moderate Pain (Pain Scale 4-6) 09/14/16 15:45 09/21/16 15:44 Albuterol Sulfate (Proventil MDI) 2 puff Q6H PRN INH Shortness of Breath 09/14/16 15:45 10/14/16 15:44 Ascorbic Acid (Vitamin C) 500 mg DAILY GT 09/15/16 09:00 10/15/16 08:59 09/15/16 09:41 Bisacodyl (Dulcolax) 10 mg PRN PRN RECTAL Constipation 09/14/16 15:45 10/14/16 15:44 Carbamazepine (TEGretol) 400 mg TID GT 09/14/16 18:00 10/14/16 17:59 09/15/16 17:18 Collagenase 1 applic 1 applic Q24HRS TOPIC 09/16/16 04:00 10/16/16 03:59 09/16/16 04:00 Dextrose STAT PRN IV Hypoglycemia 09/14/16 16:15 10/14/16 16:14 09/15/16 18:02 Digoxin (Lanoxin) 0.25 mg DAILY GT 09/15/16 09:00 10/15/16 08:59 09/15/16 09:40 Docusate Sodium (Colace) 100 mg TWICE A DAY GT 09/14/16 18:00 10/14/16 17:59 09/15/16 17:17 Enoxaparin Sodium (Lovenox) 40 mg DAILY SUBQ 09/15/16 09:00 10/15/16 08:59 09/15/16 11:01 Epoetin Grabiel (Procrit (for non ESRD use)) 10,000 units WED-WED-WED SUBQ 09/14/16 21:00 10/14/16 20:59 09/14/16 21:41 Gemfibrozil (Lopid) 600 mg BID GT 09/14/16 18:00 10/14/16 17:59 09/15/16 17:18 Insulin Aspart (NovoLOG) Q6HR SUBQ 09/15/16 00:00 10/15/16 00:00 09/16/16 06:16 Insulin Detemir (Levemir) 25 units BEDTIME SUBQ 09/14/16 21:00 10/14/16 20:59 09/14/16 21:37 Ipratropium [place] (Atrovent) 500 mcg Q6H PRN HHN Shortness of Breath 09/14/16 15:45 09/19/16 15:44 Lactulose (Cephulac) 20 gm DAILYPRN PRN ORAL Constipation 09/14/16 15:45 10/14/16 15:44 Lorazepam (Ativan 2mg/ml 1ml) 1 mg Q4H PRN IV For Anxiety 09/14/16 15:45 09/21/16 15:44 Magnesium Hydroxide (Mom) 30 ml DAILY PRN GT Constipation 09/14/16 15:45 10/14/16 15:44 Metoclopramide HCl (Reglan) 10 mg Q6H PRN GT Nausea & Vomiting 09/14/16 18:00 10/14/16 17:59 Metoprolol Tartrate (Lopressor) 100 mg EVERY 12 HOURS GT 09/14/16 21:00 10/14/16 20:59 09/15/16 22:32 Midodrine (Pro-Amatine) 2.5 mg THREE TIMES A DAY GT 09/14/16 18:00 10/14/16 17:59 09/15/16 17:17 Pantoprazole (Protonix) 40 mg DAILY IVP 09/15/16 09:00 10/15/16 08:59 09/15/16 09:40 Phenytoin/Sodium Chloride (Dilantin/Sodium Chloride) 114 ml @ 228 mls/hr Q8H IVPB 09/15/16 16:00 10/15/16 15:59 09/16/16 00:56 Piperacillin Sod/ Tazobactam Sod 3.375 gm/Dextrose 110 ml @ 27.5 mls/hr EVERY 8 HOURS IVPB 09/15/16 14:00 09/20/16 13:59 09/16/16 06:14 Sodium Chloride (Sodium Chloride 1000ml bag) 1,000 ml @ 100 mls/hr Q10H IV 09/14/16 15:00 10/14/16 14:59 09/15/16 22:31 Sodium Phosphate (Fleet's Sodium Phosl Enema) 133 ml DAILY PRN RECTAL Constipation 09/14/16 15:45 10/14/16 15:44 Valproic Acid (Depakene) 250 mg EVERY 12 HOURS NG 09/14/16 21:00 10/14/16 20:59 09/15/16 22:31 Vancomycin HCl (Vanco rx to dose) 1 ea DAILY PRN MISC Per rx protocol 09/14/16 15:15 10/14/16 15:14 Vancomycin HCl/ Dextrose (Vancomycin/D5W) 275 ml @ 183.708 mls/hr Q8HR IVPB 09/14/16 19:00 09/19/16 18:59 09/16/16 06:13 Zinc Sulfate (Zinc Sulfate) 220 mg DAILY GT 09/15/16 09:00 10/15/16 08:59 09/15/16 09:42 ADRIENNE FERRELL Sep 16, 2016 08:20
[2016-09-16] MEDS ORDERED: Heparin 2000 units/Ns 1000ml INJ PRN (08:30)
[2016-09-16] MEDS ORDERED: Sodium Bicarbonate 8.4% 50ml Inj IV PRN (08:30)
[2016-09-16] MEDS ORDERED: Lidocaine 1% Plain 30 ml INJ PRN (08:30)
--- NOTE | 2016-09-16 09:37 | General Progress Note ---
Assessment/Plan Assessment/Plan Respiratory failure tachycardia sepsis Bacteremia ALOC leukocytosis Anemia VRE proteus UTI PLAN IV antibiotics follow up blood culture findings care noted and reviewed guarded overall ID evaluation add Amikacin Echo noted impression, plan, and exam edited and reviewed in detail care discussed with RN Subjective Allergies: Coded Allergies: No Known Allergies (Unverified , 07/21/16) Subjective care noted Bcx positive sugars improved ID appreciated Objective Last 24 Hour Vital Signs Date Time Temp Pulse Resp B/P Pulse Ox O2 Delivery O2 Flow Rate FiO2 09/16/16 08:00 97.3 95 20 124/77 100 Mechanical Ventilator 50 09/16/16 06:35 91 21 50 09/16/16 04:59 85 25 50 09/16/16 04:05 82 09/16/16 04:00 97.0 80 14 110/55 100 Mechanical Ventilator 50 09/16/16 04:00 50 09/16/16 03:00 95 19 50 09/16/16 01:37 91 19 50 09/16/16 00:00 50 09/16/16 00:00 100.0 89 14 105/55 100 Mechanical Ventilator 50 09/15/16 23:50 88 09/15/16 23:43 92 20 50 09/15/16 22:32 105 117/78 09/15/16 21:17 105 32 50 09/15/16 20:00 97.7 80 20 117/78 100 Mechanical Ventilator 50 09/15/16 20:00 50 09/15/16 20:00 95 20 50 09/15/16 20:00 98 09/15/16 16:49 94 22 50 09/15/16 16:00 86 09/15/16 16:00 50 09/15/16 16:00 97.8 86 22 122/79 100 Mechanical Ventilator 50 09/15/16 15:20 85 20 50 09/15/16 13:20 111 24 50 09/15/16 12:30 102 09/15/16 12:07 50 09/15/16 12:00 99.5 101 25 152/76 100 Mechanical Ventilator 50 09/15/16 10:43 103 21 50 09/15/16 09:43 98 129/86 09/15/16 09:40 98 Intake and Output 09/15/16 09/16/16 19:00 07:00 Intake Total 1554 ml 2113.0 ml Output Total 1000 ml 1400 ml Balance 554 ml 713.0 ml Intake Free Water 180 ml 100 ml IV Total 1124 ml 1363.0 ml Tube Feeding 170 ml 600 ml Other 80 ml 50 ml Output Urine Total 1000 ml 1400 ml # Bowel Movements 1 Laboratory Tests 09/15/16 21:30: Vancomycin Level Trough 14.5H Height (Feet): 5 Height (Inches): 10.00 Weight (Pounds): 160 Objective WDWN NAD clear breath sounds bilaterally without rhonchi or wheeze [id number] without MRG NABS nontender no HSM; GT no CCE nonfocal poor LOC LAURA ROSENBAUM Sep 16, 2016 09:37
[2016-09-16] MEDS: Ascorbic Acid 500mg tab GT SCH (09:38)
[2016-09-16] MEDS: carBAMazepine 200mg tab GT SCH ×3 (09:38→18:00)
[2016-09-16] MEDS: Zinc Sulfate 220mg cap GT SCH (09:38)
[2016-09-16] MEDS: Docusate 100mg tablet GT SCH ×2 (09:39→18:00)
[2016-09-16] MEDS: Valproic Acid 250mg/5ml Liquid NG SCH ×2 (09:39→20:01)
[2016-09-16] MEDS: Digoxin Elixir 0.125mg GT SCH (09:40)
[2016-09-16] MEDS: Pantoprazole Inj IVP SCH (09:44)
[2016-09-16] MEDS: Enoxaparin 40mg Inj SUBQ SCH (09:49)
--- NOTE | 2016-09-16 11:32 | Diagnostic Imaging Report ---
Indication: Abnormal liver function tests and renal function tests Technique: Wolf-scale and duplex images of the upper abdomen were obtained Comparison: Findings: Exam is limited due to patient being contracted. Gallbladder is nondistended. No gross stones or pericholecystic fluid. Wall thickness cannot be accurately assessed. Sonographic Loomis's sign is negative. Common bile duct measures 4 mm in diameter. No intrahepatic biliary ductal dilatation. Liver demonstrates normal echogenicity. Is somewhat enlarged. Within the right hepatic lobe there is a 12 mm echogenic focus which does not definitely demonstrate distal acoustic enhancement. Portal vein and hepatic veins are patent.. Pancreas is unremarkable. Spleen is enlarged, measuring 16 cm long axis dimension. Left kidney measures 14.3 cm in length. Right kidney measures 14.2 cm length. Both kidneys demonstrate slightly increased echogenicity. There is no hydronephrosis. No focal abnormality. . Non-aneurysmal abdominal aorta. Impression: Nondistended gallbladder, despite patient being n.p.o. No gross gallstones no evidence of biliary ductal dilatation Mild hepatomegaly 12 mm echogenic focus within the right hepatic lobe, possibly but not. Further evaluation with CT or MRI with liver protocol is recommended. Dr. Wakefield notified of this finding at the time of interpretation Splenomegaly Mildly increased renal echogenicity, may indicate early medical renal disease.
[2016-09-16 12:00] VITALS: BP 122/60
--- NOTE | 2016-09-16 15:56 | Diagnostic Imaging Report ---
Indications: Needs long-term IV access Technique: Procedure performed at bedside. Ultrasound confirms patent compressible right brachial vein. Total sterile technique, including sterile probe cover and sterile gel, sterile gloves, hand hygiene, hat, mask,, sterile gown, large sterile drape, and preparation with 2% chlorhexidine utilized. Local anesthesia with 1% lidocaine. Under real-time ultrasound guidance, puncture right brachial vein using 21-gauge needle, passage 0.018 guidewire, exchange for 5 [place] peel-away sheath. 5 [place] Bard dual-lumen power PICC cut to 38 cm. It was inserted through the peel-away sheath. Peel-away sheath and guidewire removed. Catheter fixed to the skin. Both catheter ports aspirated and flushed. Patient tolerated procedure well, without immediate complication. Followup chest x-ray obtained, documents catheter tip position at the mid superior vena cava. Impression: Successful bedside placement of right arm PICC under sonographic guidance, as described above.
[2016-09-16 16:00] VITALS: BP 137/82
[2016-09-16 19:00] VITALS: BP 121/67
[2016-09-16] MEDS: Acetaminophen 650mg/20.3ml ORAL PRN (19:59)
[2016-09-16] MEDS: Epogen (for non ESRD use) SUBQ SCH (20:02)
[2016-09-16] MEDS: Levemir Flexpen SUBQ SCH (20:07)
[2016-09-17] VITALS: BP 123/70
[2016-09-17] MEDS: NovoLOG Insulin Flexpen SUBQ SCH ×5 (00:40→23:18)
[2016-09-17] MEDS: PHENYTOIN IVPB SCH ×4 (00:42→23:17)
[2016-09-17] MEDS: NS IVPB SCH ×4 (00:42→23:17)
[2016-09-17 04:00] VITALS: BP 127/76
[2016-09-17] MEDS: Vancomycin 1gm/D5W 275ml IVPB SCH ×2 (06:35)
[2016-09-17] MEDS: Zoysn 3.37gm in D5W 110ml IVPB SCH ×3 (06:36→21:41)
[2016-09-17 08:00] VITALS: BP 122/79
--- NOTE | 2016-09-17 08:22 | General Progress Note ---
Assessment/Plan Assessment/Plan Respiratory failure tachycardia sepsis Bacteremia ALOC leukocytosis Anemia VRE proteus UTI PLAN IV antibiotics reviwed blood culture findings care noted and reviewed guarded overall IV hydration ID evaluation noted monitor for improvement dc plan once better impression, plan, and exam edited and reviewed in detail care discussed with RN Subjective Allergies: Coded Allergies: No Known Allergies (Unverified , 07/21/16) Subjective care noted Bcx positive VRE positive sugars still with low results ID appreciated Objective Last 24 Hour Vital Signs Date Time Temp Pulse Resp B/P Pulse Ox O2 Delivery O2 Flow Rate FiO2 09/17/16 07:20 91 22 50 09/17/16 05:25 91 28 50 09/17/16 04:00 99.0 107 27 127/76 100 Mechanical Ventilator 09/17/16 04:00 10.0 50 09/17/16 03:34 104 09/17/16 03:21 89 18 50 09/17/16 01:06 86 18 50 09/17/16 00:00 10.0 50 09/17/16 00:00 93 09/17/16 00:00 98.0 95 24 123/70 100 Mechanical Ventilator 50 09/16/16 23:06 93 20 50 09/16/16 21:26 90 18 50 09/16/16 20:29 98.9 09/16/16 20:01 98 142/86 09/16/16 20:00 50 09/16/16 20:00 136 09/16/16 19:20 92 30 50 09/16/16 19:00 102.2 135 34 121/67 Mechanical Ventilator 09/16/16 16:40 95 28 50 09/16/16 16:00 50 09/16/16 16:00 98.1 111 32 137/82 93 Mechanical Ventilator 09/16/16 16:00 110 09/16/16 15:00 98 21 50 09/16/16 12:45 93 20 50 09/16/16 12:00 97 09/16/16 12:00 97.9 98 20 122/60 100 Mechanical Ventilator 50 09/16/16 12:00 50 09/16/16 11:05 98 20 50 09/16/16 09:40 95 09/16/16 09:37 95 124/77 09/16/16 09:15 95 20 50 Intake and Output 09/16/16 09/17/16 19:00 07:00 Intake Total 2197.5 ml 2115 ml Output Total 750 ml 500 ml Balance 1447.5 ml 1615 ml Intake Free Water 160 ml 100 ml IV Total 1377.5 ml 1300 ml Tube Feeding 660 ml 715 ml Output Urine Total 750 ml 500 ml Laboratory Tests 09/17/16 07:40: Glucose Level 80 Height (Feet): 5 Height (Inches): 10.00 Weight (Pounds): 160 Objective WDWN NAD clear breath sounds bilaterally without rhonchi or wheeze [id number] without MRG NABS nontender no HSM; GT no CCE nonfocal poor LOC LAURA ROSENBAUM Sep 17, 2016 08:22
--- NOTE | 2016-09-17 08:53 | Infectious Diseases Prog Note ---
Assessment/Plan Assessment/Plan A: Gram negative sepsis Proteus UTI Multiple pressure ulcers VDRF Hypoglycemia Elevated transaminase Persistent vegetative state Anemia VRE colonization P: Continue Zosyn Will f/u cultures Subjective ROS Limited/Unobtainable: Yes Constitutional: Reports: fever, other - Bwkg=166.2 Neurologic: Reports: other - seizure, received IV dilantin Allergies: Coded Allergies: No Known Allergies (Unverified , 07/21/16) Objective Vital Signs Last 24 Hour Vital Signs Date Time Temp Pulse Resp B/P Pulse Ox O2 Delivery O2 Flow Rate FiO2 09/17/16 07:20 91 22 50 09/17/16 05:25 91 28 50 09/17/16 04:00 99.0 107 27 127/76 100 Mechanical Ventilator 09/17/16 04:00 10.0 50 09/17/16 03:34 104 09/17/16 03:21 89 18 50 09/17/16 01:06 86 18 50 09/17/16 00:00 10.0 50 09/17/16 00:00 93 09/17/16 00:00 98.0 95 24 123/70 100 Mechanical Ventilator 50 09/16/16 23:06 93 20 50 09/16/16 21:26 90 18 50 09/16/16 20:29 98.9 09/16/16 20:01 98 142/86 09/16/16 20:00 50 09/16/16 20:00 136 09/16/16 19:20 92 30 50 09/16/16 19:00 102.2 135 34 121/67 Mechanical Ventilator 09/16/16 16:40 95 28 50 09/16/16 16:00 50 09/16/16 16:00 98.1 111 32 137/82 93 Mechanical Ventilator 09/16/16 16:00 110 09/16/16 15:00 98 21 50 09/16/16 12:45 93 20 50 09/16/16 12:00 97 09/16/16 12:00 97.9 98 20 122/60 100 Mechanical Ventilator 50 09/16/16 12:00 50 09/16/16 11:05 98 20 50 09/16/16 09:40 95 09/16/16 09:37 95 124/77 09/16/16 09:15 95 20 50 Height (Feet): 5 Height (Inches): 10.00 Weight (Pounds): 160 HEENT: status post trach Respiratory/Chest: rhonchi - bilaterally, other - on ventilator Cardiovascular: normal rate Abdomen: soft, non tender, other - GT feeding Extremities: no edema, other - R arm PICC line Neurologic/Psychiatric: other - seizure activity Microbiology Date/Time Source Procedure Growth Status 09/15/16 14:30 Sputum Gram Stain - Final Resulted 09/15/16 14:30 Sputum Sputum Culture - Preliminary Resulted 09/14/16 08:50 Nasal Nares MRSA Culture - Final NO METHICILLIN RESISTANT STAPH AUREUS... Complete 09/14/16 08:50 Urine,Clean Catch Urine Culture - Preliminary Proteus Mirabilis Resulted 09/14/16 08:50 Rectum VRE Culture - Final Enterococcus Faecium - Vre Complete Laboratory Tests Test 09/17/16 07:40 Glucose Level 80 mg/dL (74-106) Current Medications Medications (Trade) Dose Ordered Sig/Guillermo Route PRN Reason Start Time Stop Time Status Last Admin Dose Admin Acetaminophen (Tylenol) 650 mg Q6H PRN ORAL Mild Pain/Temp > 100.5 09/14/16 16:00 10/14/16 15:59 09/16/16 19:59 Acetaminophen/ Hydrocodone Bitart ([place] 5/325) 1 tab Q4H PRN ORAL Moderate Pain (Pain Scale 4-6) 09/14/16 15:45 09/21/16 15:44 Albuterol Sulfate (Proventil MDI) 2 puff Q6H PRN INH Shortness of Breath 09/14/16 15:45 10/14/16 15:44 Ascorbic Acid (Vitamin C) 500 mg DAILY GT 09/15/16 09:00 10/15/16 08:59 09/16/16 09:38 Bisacodyl (Dulcolax) 10 mg PRN PRN RECTAL Constipation 09/14/16 15:45 10/14/16 15:44 Carbamazepine (TEGretol) 400 mg TID GT 09/14/16 18:00 10/14/16 17:59 09/16/16 18:00 Collagenase 1 applic 1 applic Q24HRS TOPIC 09/16/16 04:00 10/16/16 03:59 09/17/16 04:00 Dextrose STAT PRN IV Hypoglycemia 09/14/16 16:15 10/14/16 16:14 09/17/16 07:10 Digoxin (Lanoxin) 0.25 mg DAILY GT 09/15/16 09:00 10/15/16 08:59 09/16/16 09:40 Docusate Sodium (Colace) 100 mg TWICE A DAY GT 09/14/16 18:00 10/14/16 17:59 09/16/16 18:00 Enoxaparin Sodium (Lovenox) 40 mg DAILY SUBQ 09/15/16 09:00 10/15/16 08:59 09/16/16 09:49 Epoetin Grabiel (Procrit (for non ESRD use)) 10,000 units WED-WED-WED SUBQ 09/14/16 21:00 10/14/16 20:59 09/16/16 20:02 Gemfibrozil (Lopid) 600 mg BID GT 09/14/16 18:00 10/14/16 17:59 09/16/16 18:00 Insulin Aspart (NovoLOG) Q6HR SUBQ 09/15/16 00:00 10/15/16 00:00 09/16/16 18:02 Insulin Detemir (Levemir) 25 units BEDTIME SUBQ 09/14/16 21:00 10/14/16 20:59 09/16/16 20:07 Ipratropium [place] (Atrovent) 500 mcg Q6H PRN HHN Shortness of Breath 09/14/16 15:45 09/19/16 15:44 Lactulose (Cephulac) 20 gm DAILYPRN PRN ORAL Constipation 09/14/16 15:45 10/14/16 15:44 Lorazepam (Ativan 2mg/ml 1ml) 1 mg Q4H PRN IV For Anxiety 09/14/16 15:45 09/21/16 15:44 Magnesium Hydroxide (Mom) 30 ml DAILY PRN GT Constipation 09/14/16 15:45 10/14/16 15:44 Metoclopramide HCl (Reglan) 10 mg Q6H PRN GT Nausea & Vomiting 09/14/16 18:00 10/14/16 17:59 Metoprolol Tartrate (Lopressor) 100 mg EVERY 12 HOURS GT 09/14/16 21:00 10/14/16 20:59 09/16/16 20:01 Midodrine (Pro-Amatine) 2.5 mg THREE TIMES A DAY GT 09/14/16 18:00 10/14/16 17:59 09/16/16 18:00 Pantoprazole (Protonix) 40 mg DAILY IVP 09/15/16 09:00 10/15/16 08:59 09/16/16 09:44 Phenytoin/Sodium Chloride (Dilantin/Sodium Chloride) 114 ml @ 228 mls/hr Q8H IVPB 09/15/16 16:00 10/15/16 15:59 09/17/16 08:02 Piperacillin Sod/ Tazobactam Sod 3.375 gm/Dextrose 110 ml @ 27.5 mls/hr EVERY 8 HOURS IVPB 09/15/16 14:00 09/20/16 13:59 09/17/16 06:36 Sodium Chloride (Sodium Chloride 1000ml bag) 1,000 ml @ 100 mls/hr Q10H IV 09/14/16 15:00 10/14/16 14:59 09/17/16 06:43 Sodium Phosphate (Fleet's Sodium Phosl Enema) 133 ml DAILY PRN RECTAL Constipation 09/14/16 15:45 10/14/16 15:44 Valproic Acid (Depakene) 250 mg EVERY 12 HOURS NG 09/14/16 21:00 10/14/16 20:59 09/16/16 20:01 Vancomycin HCl (Vanco rx to dose) 1 ea DAILY PRN MISC Per rx protocol 09/14/16 15:15 10/14/16 15:14 Vancomycin HCl/ Dextrose (Vancomycin/D5W) 275 ml @ 183.708 mls/hr Q8HR IVPB 09/14/16 19:00 09/19/16 18:59 09/17/16 06:35 Zinc Sulfate (Zinc Sulfate) 220 mg DAILY GT 09/15/16 09:00 10/15/16 08:59 09/16/16 09:38 ADRIENNE FERRELL Sep 17, 2016 08:53
[2016-09-17] MEDS: Docusate 100mg tablet GT SCH ×2 (09:21→18:01)
[2016-09-17] MEDS: Pantoprazole Inj IVP SCH (09:22)
[2016-09-17] MEDS: Valproic Acid 250mg/5ml Liquid NG SCH ×2 (09:24→20:25)
[2016-09-17] MEDS: Ascorbic Acid 500mg tab GT SCH (09:24)
[2016-09-17] MEDS: Zinc Sulfate 220mg cap GT SCH (09:24)
[2016-09-17] MEDS: Digoxin Elixir 0.125mg GT SCH (09:25)
[2016-09-17] MEDS: carBAMazepine 200mg tab GT SCH ×3 (09:26→18:00)
[2016-09-17] MEDS: Enoxaparin 40mg Inj SUBQ SCH (09:32)
[2016-09-17] MEDS: Colistin 150mg vial IVP SCH ×2 (11:27→23:16)
[2016-09-17 12:00] VITALS: BP 110/73
[2016-09-17 16:12] VITALS: BP 133/83
[2016-09-17 20:01] VITALS: BP 131/78
[2016-09-17] MEDS: Acetaminophen 650mg/20.3ml ORAL PRN (20:26)
[2016-09-17] MEDS: Levemir Flexpen SUBQ SCH (20:28)
[2016-09-18] VITALS: BP 129/75
[2016-09-18 04:00] VITALS: BP 133/85
[2016-09-18] MEDS: Zoysn 3.37gm in D5W 110ml IVPB SCH ×3 (05:08→22:07)
[2016-09-18] MEDS: NovoLOG Insulin Flexpen SUBQ SCH ×4 (05:09→23:44)
[2016-09-18 05:48] LABS: BASOPHILS % (AUTO) 1.2 % (0.0-2.0); LYMPHOCYTES % (AUTO) 8.3 % (20.0-45.0); MEAN CORPUSCULAR HEMOGLOBIN 31.3 PG (27.0-31.0); MEAN CORPUSCULAR HGB CONC 32.5 G/DL (32.0-36.0); MEAN CORPUSCULAR VOLUME 96 FL (80-99); MEAN PLATELET VOLUME 6.4 FL (6.5-10.1); MONOCYTES % (AUTO) 5.3 % (1.0-10.0); NEUTROPHILS % (AUTO) 81.2 % (45.0-75.0); PLATELET COUNT 301 K/UL (150-450); RED BLOOD COUNT 2.65 M/UL (4.70-6.10)
[2016-09-18 08:00] VITALS: BP 130/76
[2016-09-18] MEDS: NS IVPB SCH ×3 (08:19→23:41)
[2016-09-18] MEDS: PHENYTOIN IVPB SCH ×3 (08:19→23:41)
--- NOTE | 2016-09-18 08:39 | General Progress Note ---
Assessment/Plan Assessment/Plan Respiratory failure tachycardia sepsis Bacteremia ALOC leukocytosis Anemia VRE proteus UTI PLAN IV antibiotics for additional 7 days after discharge care noted and reviewed guarded overall IV hydration discontinue ID evaluation noted monitor for improvement dc planning sugars better convert dilantin to keppra on discharge impression, plan, and exam edited and reviewed in detail care discussed with RN Subjective Allergies: Coded Allergies: No Known Allergies (Unverified , 07/21/16) Subjective care noted Bcx positive VRE positive on zosyn ID appreciated Objective Last 24 Hour Vital Signs Date Time Temp Pulse Resp B/P Pulse Ox O2 Delivery O2 Flow Rate FiO2 09/18/16 08:00 40 09/18/16 06:59 89 31 40 09/18/16 05:11 88 24 40 09/18/16 04:00 10.0 50 09/18/16 04:00 89 09/18/16 04:00 98.4 92 21 133/85 100 Mechanical Ventilator 40 09/18/16 03:05 90 27 40 09/18/16 01:10 92 19 40 09/18/16 00:00 10.0 50 09/18/16 00:00 82 09/18/16 00:00 98.3 87 21 129/75 100 Mechanical Ventilator 40 09/17/16 23:15 97 30 40 09/17/16 21:10 99 17 40 09/17/16 20:56 97.9 09/17/16 20:56 97.9 09/17/16 20:29 110 131/78 09/17/16 20:01 99.5 110 22 131/78 98 Mechanical Ventilator 40 09/17/16 20:00 105 09/17/16 20:00 10.0 50 09/17/16 18:40 108 22 40 09/17/16 17:08 104 20 40 09/17/16 16:12 98.1 104 25 133/83 99 Mechanical Ventilator 50 09/17/16 16:00 10.0 50 09/17/16 16:00 104 09/17/16 14:56 100 23 50 09/17/16 13:09 84 22 50 09/17/16 12:00 91 09/17/16 12:00 10.0 50 09/17/16 12:00 98.2 82 19 110/73 99 Mechanical Ventilator 50 09/17/16 11:07 90 25 50 09/17/16 09:26 91 127/76 09/17/16 09:25 91 09/17/16 09:08 87 29 50 Intake and Output 09/17/16 09/18/16 19:00 07:00 Intake Total 2181.5 ml 2119.5 ml Output Total 551 ml 2550 ml Balance 1630.5 ml -430.5 ml Intake Free Water 260 ml 100 ml IV Total 1261.5 ml 1359.5 ml Tube Feeding 660 ml 660 ml Output Urine Total 550 ml 2550 ml Stool Total 1 ml Laboratory Tests 09/18/16 04:30: White Blood Count 14.0H, Red Blood Count 2.65L, Hemoglobin 8.3L, Hematocrit 25.6L, Mean Corpuscular Volume 96, Mean Corpuscular Hemoglobin 31.3H, Mean Corpuscular Hemoglobin Concent 32.5, Red Cell Distribution Width 15.0H, Platelet Count 301, Mean Platelet Volume 6.4L, Neutrophils (%) (Auto) 81.2H, Lymphocytes (%) (Auto) 8.3L, Monocytes (%) (Auto) 5.3, Eosinophils (%) (Auto) 4.0H, Basophils (%) (Auto) 1.2 Height (Feet): 5 Height (Inches): 10.00 Weight (Pounds): 160 Objective WDWN NAD stable breath sounds bilaterally without rhonchi or wheeze [id number] without MRG NABS nontender no HSM; GT no CCE nonfocal poor LOC LAURA ROSENBAUM Sep 18, 2016 08:39
[2016-09-18] MEDS: Ascorbic Acid 500mg tab GT SCH (09:17)
[2016-09-18] MEDS: Zinc Sulfate 220mg cap GT SCH (09:17)
[2016-09-18] MEDS: Valproic Acid 250mg/5ml Liquid NG SCH ×2 (09:17→20:54)
[2016-09-18] MEDS: Docusate 100mg tablet GT SCH ×2 (09:17→18:49)
[2016-09-18] MEDS: Enoxaparin 40mg Inj SUBQ SCH (09:19)
[2016-09-18] MEDS: Pantoprazole Inj IVP SCH (09:20)
[2016-09-18] MEDS: carBAMazepine 200mg tab GT SCH ×3 (09:21→18:00)
[2016-09-18] MEDS: Digoxin Elixir 0.125mg GT SCH (09:23)
[2016-09-18] MEDS: Colistin 150mg vial IVP SCH ×2 (11:23→23:23)
--- NOTE | 2016-09-18 11:28 | Infectious Diseases Prog Note ---
Assessment/Plan Assessment/Plan antibiotics : zosyn, colistin A 1. klebsiella sepsis 2. gram negative pneumonia 3. proteus UTI 4. rectal VRE colonization 5. leucocytosis improving P 1. d/c zosyn 2. start and continue ertapenem 3 more days 3. continue colistin iv 5 more days 4. will follow up cultures Subjective ROS Limited/Unobtainable: Yes Allergies: Coded Allergies: No Known Allergies (Unverified , 07/21/16) Objective Vital Signs Last 24 Hour Vital Signs Date Time Temp Pulse Resp B/P Pulse Ox O2 Delivery O2 Flow Rate FiO2 09/18/16 09:23 95 09/18/16 09:22 95 130/76 09/18/16 09:16 92 29 40 09/18/16 08:00 40 09/18/16 08:00 97 09/18/16 08:00 98.1 95 21 130/76 100 Mechanical Ventilator 40 09/18/16 06:59 89 31 40 09/18/16 05:11 88 24 40 09/18/16 04:00 10.0 50 09/18/16 04:00 89 09/18/16 04:00 98.4 92 21 133/85 100 Mechanical Ventilator 40 09/18/16 03:05 90 27 40 09/18/16 01:10 92 19 40 09/18/16 00:00 10.0 50 09/18/16 00:00 82 09/18/16 00:00 98.3 87 21 129/75 100 Mechanical Ventilator 40 09/17/16 23:15 97 30 40 09/17/16 21:10 99 17 40 09/17/16 20:56 97.9 09/17/16 20:56 97.9 09/17/16 20:29 110 131/78 09/17/16 20:01 99.5 110 22 131/78 98 Mechanical Ventilator 40 09/17/16 20:00 105 09/17/16 20:00 10.0 50 09/17/16 18:40 108 22 40 09/17/16 17:08 104 20 40 09/17/16 16:12 98.1 104 25 133/83 99 Mechanical Ventilator 50 09/17/16 16:00 10.0 50 09/17/16 16:00 104 09/17/16 14:56 100 23 50 09/17/16 13:09 84 22 50 09/17/16 12:00 91 09/17/16 12:00 10.0 50 09/17/16 12:00 98.2 82 19 110/73 99 Mechanical Ventilator 50 Height (Feet): 5 Height (Inches): 10.00 Weight (Pounds): 160 HEENT: status post trach Respiratory/Chest: lungs clear Cardiovascular: normal rate, regular rhythm, no gallop/murmur Abdomen: soft, non tender, other - GT Extremities: no edema, other - right arm PICC Microbiology Date/Time Source Procedure Growth Status 09/15/16 14:30 Sputum Gram Stain - Final Resulted 09/15/16 14:30 Sputum Culture - Preliminary Gram Negative Bacillus 1 Gram Negative Bacillus 2 Gram Negative Bacillus 3 Resulted Laboratory Tests Test 09/18/16 04:30 White Blood Count 14.0 K/UL (4.8-10.8) H Red Blood Count 2.65 M/UL (4.70-6.10) L Hemoglobin 8.3 G/DL (14.2-18.0) L Hematocrit 25.6 % (42.0-52.0) L Mean Corpuscular Volume 96 FL (80-99) Mean Corpuscular Hemoglobin 31.3 PG (27.0-31.0) H Mean Corpuscular Hemoglobin Concent 32.5 G/DL (32.0-36.0) Red Cell Distribution Width 15.0 % (11.6-14.8) H Platelet Count 301 K/UL (150-450) Mean Platelet Volume 6.4 FL (6.5-10.1) L Neutrophils (%) (Auto) 81.2 % (45.0-75.0) H Lymphocytes (%) (Auto) 8.3 % (20.0-45.0) L Monocytes (%) (Auto) 5.3 % (1.0-10.0) Eosinophils (%) (Auto) 4.0 % (0.0-3.0) H Basophils (%) (Auto) 1.2 % (0.0-2.0) TONJA HALL Sep 18, 2016 11:28
[2016-09-18 12:00] VITALS: BP 114/18
[2016-09-18] MEDS ORDERED: Ertapenem 1 GM in NS 110 ML IVPB SCH (13:00)
[2016-09-18] MEDS: Acetaminophen 650mg/20.3ml ORAL PRN (13:56)
--- NOTE | 2016-09-18 14:29 | History and Physical Report ---
DATE OF ADMISSION: 09/14/2016 REASON FOR ADMISSION: Sepsis. HISTORY OF PRESENT ILLNESS: This is a 41-year-old unfortunate male with persistent vegetative state and coming in for significant tachycardia. The patient was seen and evaluated and was noted to have a heart rate up to 180 on arrival. The patient is in 140s here. The patient is now being admitted for further care and management. The patient also does have significant elevated liver enzymes. PAST MEDICAL HISTORY: Notable for the above. The patient has chronic encephalopathy, chronic respiratory failure, G-tube, and history of tachyarrhythmias in the past. MEDICATIONS: Reviewed. ALLERGIES: Reviewed. PHYSICAL EXAMINATION: GENERAL: The patient is an elderly male, withdrawal. VITAL SIGNS: Blood pressure 107/62, pulse 130, respiration 20s, saturation 99%, T-max 103. HEENT: Negative. The patient is poorly responsive. LUNGS: Coarse breath sounds. CARDIAC: S1 and S2, tachycardic. RR ABDOMEN: Soft and nondistended. G-tube. EXTREMITIES: No edema. LABORATORY AND DIAGNOSTIC DATA: Labs are reviewed. White count 16. Elevated liver enzymes. Lactic acid is elevated. IMPRESSION: 1. Sepsis. 2. Anemia. 3. Respiratory failure. 4. leukocytosis. 5. Tachyarrhythmias. 6. Fevers. 7. Elevated liver enzymes, unclear etiology. RECOMMENDATION: IV antibiotics, IV medications, IV hydration, ID evaluation, GI evaluation, and monitor clinically for further changes. He will admitted to the [facility]. Andres Wakefield M.D. DR: MELISSA JOB#: [id number] CC: DEAN
[2016-09-18 16:43] VITALS: BP 149/85
[2016-09-18] MEDS ORDERED: NS 275ml ONE (18:30)
[2016-09-18] MEDS ORDERED: Sterile Water Irrig 1000ml IRRIG ONE (18:30)
[2016-09-18] MEDS ORDERED: Tubing IV Secondary IV ONE (18:30)
[2016-09-18 20:00] VITALS: BP 142/89
[2016-09-18] MEDS: Levemir Flexpen SUBQ SCH (20:59)
[2016-09-18] MEDS: Epogen (for non ESRD use) SUBQ SCH (21:00)
--- NOTE | 2016-09-18 21:49 | Diagnostic Imaging Report ---
APPROVED REPORT CPT Code: 01153 Present Symptoms Shortness of breath BILATERAL: Imaging reveals a patent deep venous system bilaterally. There is no evidence of thrombus within the femoral, popliteal or tibial segments. The greater saphenous veins are also within normal limits. Doppler indicates normal spontaneous flow within these segments.
[2016-09-19] VITALS (7 sets, daily range): BP systolic 109–134; BP diastolic 61–87
[2016-09-19] MEDS: Zoysn 3.37gm in D5W 110ml IVPB SCH ×3 (05:00→21:46)
[2016-09-19] MEDS: NovoLOG Insulin Flexpen SUBQ SCH ×3 (05:03→18:37)
[2016-09-19] MEDS: NS IVPB SCH ×2 (08:35→19:06)
[2016-09-19] MEDS: PHENYTOIN IVPB SCH ×2 (08:35→19:06)
[2016-09-19] MEDS: Pantoprazole Inj IVP SCH (08:36)
[2016-09-19] MEDS: Ascorbic Acid 500mg tab GT SCH (08:37)
[2016-09-19] MEDS: Docusate 100mg tablet GT SCH ×2 (08:37→18:32)
[2016-09-19] MEDS: carBAMazepine 200mg tab GT SCH ×3 (08:37→18:35)
[2016-09-19] MEDS: Zinc Sulfate 220mg cap GT SCH (08:38)
[2016-09-19] MEDS: Digoxin Elixir 0.125mg GT SCH (08:38)
[2016-09-19] MEDS: Valproic Acid 250mg/5ml Liquid NG SCH ×2 (08:38→21:46)
[2016-09-19] MEDS: Enoxaparin 40mg Inj SUBQ SCH (08:40)
--- NOTE | 2016-09-19 09:44 | Infectious Diseases Prog Note ---
Assessment/Plan Assessment/Plan antibiotics : zosyn, colistin A 1. klebsiella sepsis 2. gram negative pneumonia 3. proteus UTI 4. rectal VRE colonization 5. leucocytosis improving P 1. continue iv zosyn 2. continue colistin iv 4 more days 3. cbc, bmp, lft 4. will follow up cultures Subjective ROS Limited/Unobtainable: Yes Allergies: Coded Allergies: No Known Allergies (Unverified , 07/21/16) Objective Vital Signs Last 24 Hour Vital Signs Date Time Temp Pulse Resp B/P Pulse Ox O2 Delivery O2 Flow Rate FiO2 09/19/16 09:06 107 24 40 09/19/16 08:38 116 09/19/16 08:37 116 132/86 09/19/16 08:00 40 09/19/16 06:54 109 25 40 09/19/16 05:17 94 24 45 09/19/16 04:00 98.0 100 22 134/86 100 Mechanical Ventilator 45 09/19/16 04:00 40 09/19/16 04:00 93 09/19/16 03:15 112 24 45 09/19/16 01:14 95 22 45 09/19/16 00:00 40 09/19/16 00:00 86 09/19/16 00:00 98.3 87 23 131/87 100 Mechanical Ventilator 45 09/18/16 23:08 110 24 45 09/18/16 21:15 101 21 45 09/18/16 20:55 104 142/89 09/18/16 20:00 99.0 104 25 142/89 100 Mechanical Ventilator 45 09/18/16 20:00 40 09/18/16 19:51 110 09/18/16 18:57 111 33 45 09/18/16 17:10 118 26 45 09/18/16 16:50 125 09/18/16 16:43 101.0 129 34 149/85 100 Mechanical Ventilator 55 09/18/16 16:00 40 09/18/16 15:02 127 26 55 09/18/16 14:33 99.5 09/18/16 13:05 135 28 55 09/18/16 12:00 100.4 118 33 114/18 92 Mechanical Ventilator 55 09/18/16 12:00 113 09/18/16 12:00 40 09/18/16 11:29 89 34 40 Height (Feet): 5 Height (Inches): 10.00 Weight (Pounds): 160 HEENT: status post trach Respiratory/Chest: lungs clear Cardiovascular: normal rate, regular rhythm, no gallop/murmur Abdomen: soft, non tender, other - GT Extremities: no edema, other - right arm PICC Laboratory Tests Test 09/18/16 11:40 Glucose Level 32 mg/dL (74-106) *TONJA HUYNH Sep 19, 2016 09:44
--- NOTE | 2016-09-19 10:06 | General Progress Note ---
Assessment/Plan Assessment/Plan Respiratory failure tachycardia sepsis Bacteremia ALOC leukocytosis Anemia VRE proteus UTI PLAN IV antibiotics for additional 3 days after discharge care noted and reviewed guarded overall ID evaluation noted monitor for improvement dc planning to SNF sugars better convert dilantin to keppra on discharge impression, plan, and exam edited and reviewed in detail care discussed with RN Subjective Allergies: Coded Allergies: No Known Allergies (Unverified , 07/21/16) Subjective care noted Bcx positive VRE positive on zosyn and colistin sugars better ID appreciated Objective Last 24 Hour Vital Signs Date Time Temp Pulse Resp B/P Pulse Ox O2 Delivery O2 Flow Rate FiO2 09/19/16 09:06 107 24 40 09/19/16 08:38 116 09/19/16 08:37 116 132/86 09/19/16 08:00 40 09/19/16 08:00 98.1 116 23 132/86 99 Mechanical Ventilator 40 09/19/16 06:54 109 25 40 09/19/16 05:17 94 24 45 09/19/16 04:00 98.0 100 22 134/86 100 Mechanical Ventilator 45 09/19/16 04:00 40 09/19/16 04:00 93 09/19/16 03:15 112 24 45 09/19/16 01:14 95 22 45 09/19/16 00:00 40 09/19/16 00:00 86 09/19/16 00:00 98.3 87 23 131/87 100 Mechanical Ventilator 45 09/18/16 23:08 110 24 45 09/18/16 21:15 101 21 45 09/18/16 20:55 104 142/89 09/18/16 20:00 99.0 104 25 142/89 100 Mechanical Ventilator 45 09/18/16 20:00 40 09/18/16 19:51 110 09/18/16 18:57 111 33 45 09/18/16 17:10 118 26 45 09/18/16 16:50 125 09/18/16 16:43 101.0 129 34 149/85 100 Mechanical Ventilator 55 09/18/16 16:00 40 09/18/16 15:02 127 26 55 09/18/16 14:33 99.5 09/18/16 13:05 135 28 55 09/18/16 12:00 100.4 118 33 114/18 92 Mechanical Ventilator 55 09/18/16 12:00 113 09/18/16 12:00 40 09/18/16 11:29 89 34 40 Intake and Output 09/18/16 09/19/16 19:00 07:00 Intake Total 2990.5 ml 2248.0 ml Output Total 3600 ml 3950 ml Balance -609.5 ml -1702.0 ml Intake Oral 500 ml Free Water 200 ml 100 ml IV Total 1420.5 ml 1488.0 ml Tube Feeding 660 ml 660 ml Other 210 ml Output Urine Total 3600 ml 3950 ml Laboratory Tests 09/18/16 11:40: Glucose Level 32*L Height (Feet): 5 Height (Inches): 10.00 Weight (Pounds): 160 Objective WDWN NAD stable breath sounds bilaterally without rhonchi or wheeze [id number] without MRG NABS nontender no HSM; GT no CCE nonfocal poor LOC LAURA ROSENBAUM Sep 19, 2016 10:06
[2016-09-19 10:50] LABS: BASOPHILS % (AUTO) 1.3 % (0.0-2.0); EOSINOPHILS % (AUTO) 4.4 % (0.0-3.0); MEAN CORPUSCULAR HEMOGLOBIN 30.8 PG (27.0-31.0); MEAN CORPUSCULAR HGB CONC 32.5 G/DL (32.0-36.0); MEAN CORPUSCULAR VOLUME 95 FL (80-99); MEAN PLATELET VOLUME 6.2 FL (6.5-10.1); MONOCYTES % (AUTO) 7.3 % (1.0-10.0); NEUTROPHILS % (AUTO) 78.1 % (45.0-75.0); PLATELET COUNT 541 K/UL (150-450); RED CELL DISTRIBUTION WIDTH 14.3 % (11.6-14.8); WHITE BLOOD COUNT 12.5 K/UL (4.8-10.8)
[2016-09-19 11:18] LABS: ALANINE AMINOTRANSFERASE 38 U/L (3-41); ANION GAP 13 (5-15); ASPARTATE AMINO TRANSFERASE 32 U/L (5-40); BILIRUBIN,DIRECT 0.4 mg/dL (0.1-0.3); CALCIUM 8.7 mg/dL (8.6-10.2); CARBON DIOXIDE 29 mEQ/L (20-30); CHLORIDE 88 mEQ/L (98-107); CREATININE 0.4 mg/dL (0.7-1.2); GLOMERULAR FILTRATION RATE > 60 mL/min (>60); HEMOLYSIS 1; POTASSIUM 5.3 mEQ/L (3.4-4.9); SODIUM 130 mEQ/L (135-145); TOTAL PROTEIN 6.3 g/dL (6.6-8.7)
[2016-09-19] MEDS ORDERED: Sodium Polystyrene Sulfonate 15gm Powder ORAL ONE (11:45)
[2016-09-19] MEDS: Acetaminophen 650mg/20.3ml ORAL PRN (12:35)
[2016-09-19] MEDS: Colistin 150mg vial IVP SCH ×2 (13:29→23:44)
[2016-09-19] MEDS: LORazepam Inj 2mg/ml 1ml IV PRN (13:30)
[2016-09-19] MEDS ORDERED: NS 275ml ONE (17:24)
[2016-09-19] MEDS ORDERED: Sterile Water Irrig 1000ml IRRIG ONE (17:24)
[2016-09-19] MEDS: Levemir Flexpen SUBQ SCH (21:51)
[2016-09-20] VITALS: BP 121/74
[2016-09-20] MEDS: NovoLOG Insulin Flexpen SUBQ SCH ×5 (00:14→23:56)
[2016-09-20 04:00] VITALS: BP 112/69
[2016-09-20 04:54] LABS: ANION GAP 13 (5-15); CALCIUM 9.2 mg/dL (8.6-10.2); CARBON DIOXIDE 28 mEQ/L (20-30); CHLORIDE 93 mEQ/L (98-107); CREATININE 0.3 mg/dL (0.7-1.2); GLOMERULAR FILTRATION RATE > 60 mL/min (>60); HEMOLYSIS 0; POTASSIUM 4.3 mEQ/L (3.4-4.9); SODIUM 134 mEQ/L (135-145)
[2016-09-20] MEDS: Zoysn 3.37gm in D5W 110ml IVPB SCH (05:42)
[2016-09-20 08:00] VITALS: BP 117/75
[2016-09-20] MEDS: Valproic Acid 250mg/5ml Liquid NG SCH ×2 (08:15→21:13)
[2016-09-20] MEDS: NS IVPB SCH ×3 (08:16)
[2016-09-20] MEDS: Digoxin Elixir 0.125mg GT SCH (08:16)
[2016-09-20] MEDS: PHENYTOIN IVPB SCH ×3 (08:16)
[2016-09-20] MEDS: carBAMazepine 200mg tab GT SCH ×3 (08:16→18:30)
[2016-09-20] MEDS: Ascorbic Acid 500mg tab GT SCH (08:17)
[2016-09-20] MEDS: Docusate 100mg tablet GT SCH ×2 (08:17→18:30)
[2016-09-20] MEDS: Zinc Sulfate 220mg cap GT SCH (08:17)
[2016-09-20] MEDS: Pantoprazole Inj IVP SCH (08:17)
[2016-09-20] MEDS: Enoxaparin 40mg Inj SUBQ SCH (08:21)
--- NOTE | 2016-09-20 09:36 | Infectious Diseases Prog Note ---
Assessment/Plan Assessment/Plan A: KPC sepsis Proteus UTI Pneumonia Multiple pressure ulcers VDRF Hypoglycemia Elevated transaminase Persistent vegetative state Anemia VRE colonization P: discontinue Zosyn continue Colistin, start on Amikacin inhaler F/U CXR Subjective ROS Limited/Unobtainable: Yes Constitutional: Reports: fever, other - T lbg=102.2 Allergies: Coded Allergies: No Known Allergies (Unverified , 07/21/16) Objective Vital Signs Last 24 Hour Vital Signs Date Time Temp Pulse Resp B/P Pulse Ox O2 Delivery O2 Flow Rate FiO2 09/20/16 09:16 84 21 40 09/20/16 08:17 106 112/69 09/20/16 08:16 106 09/20/16 07:06 103 26 40 09/20/16 05:06 100 26 40 09/20/16 04:00 97.0 98 16 112/69 100 Mechanical Ventilator 09/20/16 04:00 45 09/20/16 03:34 97 09/20/16 03:20 95 15 40 09/20/16 00:54 104 23 40 09/20/16 00:00 45 09/20/16 00:00 97.0 102 20 121/74 100 Mechanical Ventilator 09/19/16 23:38 102 09/19/16 23:05 101 23 40 09/19/16 21:00 99 18 40 09/19/16 21:00 99 109/71 09/19/16 20:10 107 09/19/16 20:00 45 09/19/16 20:00 97.7 99 18 109/71 100 Mechanical Ventilator 40 09/19/16 18:58 109 25 40 09/19/16 16:42 116 21 40 09/19/16 16:40 102.2 127 25 113/61 98 Mechanical Ventilator 45 09/19/16 16:00 45 09/19/16 16:00 102.2 135 31 113/61 97 Mechanical Ventilator 40 09/19/16 16:00 123 09/19/16 15:19 129 27 40 09/19/16 14:11 102.2 09/19/16 13:11 136 26 40 09/19/16 12:00 99.1 135 31 132/79 97 Mechanical Ventilator 40 09/19/16 12:00 40 09/19/16 12:00 131 09/19/16 11:09 109 22 40 Height (Feet): 5 Height (Inches): 10.00 Weight (Pounds): 160 General Appearance: no acute distress HEENT: status post trach Respiratory/Chest: rhonchi - bilaterally, other - on ventilator Cardiovascular: normal rate Abdomen: soft, non tender, other - GT feeding Extremities: no edema, other - PICC line Neurologic/Psychiatric: unresponsiveness Musculoskeletal: atrophy Laboratory Tests Test 09/19/16 10:30 09/20/16 04:00 White Blood Count 12.5 K/UL (4.8-10.8) H Red Blood Count 2.90 M/UL (4.70-6.10) L Hemoglobin 8.9 G/DL (14.2-18.0) L Hematocrit 27.5 % (42.0-52.0) L Mean Corpuscular Volume 95 FL (80-99) Mean Corpuscular Hemoglobin 30.8 PG (27.0-31.0) Mean Corpuscular Hemoglobin Concent 32.5 G/DL (32.0-36.0) Red Cell Distribution Width 14.3 % (11.6-14.8) Platelet Count 541 K/UL (150-450) #H Mean Platelet Volume 6.2 FL (6.5-10.1) L Neutrophils (%) (Auto) 78.1 % (45.0-75.0) H Lymphocytes (%) (Auto) 9.0 % (20.0-45.0) L Monocytes (%) (Auto) 7.3 % (1.0-10.0) Eosinophils (%) (Auto) 4.4 % (0.0-3.0) H Basophils (%) (Auto) 1.3 % (0.0-2.0) Sodium Level 130 mEQ/L (135-145) L 134 mEQ/L (135-145) L Potassium Level 5.3 mEQ/L (3.4-4.9) H 4.3 mEQ/L (3.4-4.9) Chloride Level 88 mEQ/L (98-107) L 93 mEQ/L (98-107) L Carbon Dioxide Level 29 mEQ/L (20-30) 28 mEQ/L (20-30) Anion Gap 13 (5-15) 13 (5-15) Blood Urea Nitrogen 9 mg/dL (7-23) 8 mg/dL (7-23) Creatinine 0.4 mg/dL (0.7-1.2) L 0.3 mg/dL (0.7-1.2) L Estimat Glomerular Filtration Rate > 60 mL/min (>60) > 60 mL/min (>60) Glucose Level 324 mg/dL (74-106) #H 122 mg/dL (74-106) #H Calcium Level 8.7 mg/dL (8.6-10.2) 9.2 mg/dL (8.6-10.2) Total Bilirubin 0.5 mg/dL (0.0-1.2) Direct Bilirubin 0.4 mg/dL (0.1-0.3) H Aspartate Amino Transf (AST/SGOT) 32 U/L (5-40) Alanine Aminotransferase (ALT/SGPT) 38 U/L (3-41) Alkaline Phosphatase 890 U/L (40-129) H Total Protein 6.3 g/dL (6.6-8.7) L Albumin 2.6 g/dL (3.5-5.2) L Current Medications Medications (Trade) Dose Ordered Sig/Guillermo Route PRN Reason Start Time Stop Time Status Last Admin Dose Admin Acetaminophen (Tylenol) 650 mg Q6H PRN ORAL Mild Pain/Temp > 100.5 09/14/16 16:00 10/14/16 15:59 09/19/16 12:35 Acetaminophen/ Hydrocodone Bitart ([place] 5/325) 1 tab Q4H PRN ORAL Moderate Pain (Pain Scale 4-6) 09/14/16 15:45 09/21/16 15:44 Albuterol Sulfate (Proventil MDI) 2 puff Q6H PRN INH Shortness of Breath 09/14/16 15:45 10/14/16 15:44 Ascorbic Acid (Vitamin C) 500 mg DAILY GT 09/15/16 09:00 10/15/16 08:59 09/20/16 08:17 Bisacodyl (Dulcolax) 10 mg PRN PRN RECTAL Constipation 09/14/16 15:45 10/14/16 15:44 Carbamazepine (TEGretol) 400 mg TID GT 09/14/16 18:00 10/14/16 17:59 2/19/17 08:16 Colistimethate Sodium (Colistin) 150 mg Q12H IVP 09/17/16 11:00 09/24/16 10:59 09/19/16 23:44 Collagenase 1 applic 1 applic Q24HRS TOPIC 09/16/16 04:00 10/16/16 03:59 09/20/16 04:18 Dextrose (Dextrose 50%) STAT PRN IV Hypoglycemia 09/14/16 16:15 10/14/16 16:14 09/18/16 11:40 Digoxin (Lanoxin) 0.25 mg DAILY GT 09/15/16 09:00 10/15/16 08:59 09/20/16 08:16 Docusate Sodium (Colace) 100 mg TWICE A DAY GT 09/14/16 18:00 10/14/16 17:59 09/20/16 08:17 Enoxaparin Sodium (Lovenox) 40 mg DAILY SUBQ 09/15/16 09:00 10/15/16 08:59 09/20/16 08:21 Epoetin Grabiel (Procrit (for non ESRD use)) 10,000 units WED-WED-WED SUBQ 09/14/16 21:00 10/14/16 20:59 09/18/16 21:00 Gemfibrozil (Lopid) 600 mg BID GT 09/14/16 18:00 10/14/16 17:59 09/20/16 08:16 Insulin Aspart (NovoLOG) Q6HR SUBQ 09/15/16 00:00 10/15/16 00:00 09/20/16 05:43 Insulin Detemir (Levemir) 25 units BEDTIME SUBQ 09/14/16 21:00 10/14/16 20:59 09/19/16 21:51 Lactulose (Cephulac) 20 gm DAILYPRN PRN ORAL Constipation 09/14/16 15:45 10/14/16 15:44 Lorazepam (Ativan 2mg/ml 1ml) 1 mg Q4H PRN IV For Anxiety 09/14/16 15:45 09/21/16 15:44 09/19/16 13:30 Magnesium Hydroxide (Mom) 30 ml DAILY PRN GT Constipation 09/14/16 15:45 10/14/16 15:44 Metoclopramide HCl (Reglan) 10 mg Q6H PRN GT Nausea & Vomiting 09/14/16 18:00 10/14/16 17:59 Metoprolol Tartrate (Lopressor) 100 mg EVERY 12 HOURS GT 09/14/16 21:00 10/14/16 20:59 09/20/16 08:17 Midodrine (Pro-Amatine) 2.5 mg THREE TIMES A DAY GT 09/14/16 18:00 10/14/16 17:59 09/20/16 08:17 Pantoprazole (Protonix) 40 mg DAILY IVP 09/15/16 09:00 10/15/16 08:59 09/20/16 08:17 Phenytoin/Sodium Chloride (Dilantin/Sodium Chloride) 114 ml @ 228 mls/hr Q8H IVPB 09/15/16 16:00 10/15/16 15:59 09/20/16 08:16 Piperacillin Sod/ Tazobactam Sod 3.375 gm/Dextrose 110 ml @ 27.5 mls/hr EVERY 8 HOURS IVPB 09/15/16 14:00 09/22/16 13:59 09/20/16 05:42 Sodium Chloride (Sodium Chloride 1000ml bag) 1,000 ml @ 100 mls/hr Q10H IV 09/14/16 15:00 10/14/16 14:59 09/20/16 00:00 Sodium Phosphate (Fleet's Sodium Phosl Enema) 133 ml DAILY PRN RECTAL Constipation 09/14/16 15:45 10/14/16 15:44 Valproic Acid (Depakene) 250 mg EVERY 12 HOURS NG 09/14/16 21:00 10/14/16 20:59 09/20/16 08:15 Zinc Sulfate (Zinc Sulfate) 220 mg DAILY GT 09/15/16 09:00 10/15/16 08:59 09/20/16 08:17 ADRIENNE FERRELL Sep 20, 2016 09:35
[2016-09-20] MEDS: Amikacin for Inhalation 2ML INH SCH ×2 (10:00→23:37)
[2016-09-20] MEDS: Colistin 150mg vial IVP SCH ×2 (10:36→23:54)
--- NOTE | 2016-09-20 10:40 | General Progress Note ---
Assessment/Plan Assessment/Plan Respiratory failure tachycardia sepsis Bacteremia ALOC leukocytosis Anemia VRE proteus UTI PLAN IV antibiotics for additional 3 days with colistin inhaled amikacin care noted and reviewed guarded overall ID evaluation noted monitor for improvement dc planning to SNF today sugars better convert dilantin to keppra today dc iv fluids digoxin and beta blockers for rate control impression, plan, and exam edited and reviewed in detail care discussed with RN Subjective Allergies: Coded Allergies: No Known Allergies (Unverified , 07/21/16) Subjective care noted Bcx positive VRE positive on inhaled amikacin and colistin sugars better without drops ID appreciated Objective Last 24 Hour Vital Signs Date Time Temp Pulse Resp B/P Pulse Ox O2 Delivery O2 Flow Rate FiO2 09/20/16 09:16 84 21 40 09/20/16 08:17 106 112/69 09/20/16 08:16 106 09/20/16 08:00 40 09/20/16 08:00 97.7 96 23 117/75 100 Mechanical Ventilator 40 09/20/16 08:00 102 09/20/16 07:06 103 26 40 09/20/16 05:06 100 26 40 09/20/16 04:00 97.0 98 16 112/69 100 Mechanical Ventilator 09/20/16 04:00 45 09/20/16 03:34 97 09/20/16 03:20 95 15 40 09/20/16 00:54 104 23 40 09/20/16 00:00 45 09/20/16 00:00 97.0 102 20 121/74 100 Mechanical Ventilator 09/19/16 23:38 102 09/19/16 23:05 101 23 40 09/19/16 21:00 99 18 40 09/19/16 21:00 99 109/71 09/19/16 20:10 107 09/19/16 20:00 45 09/19/16 20:00 97.7 99 18 109/71 100 Mechanical Ventilator 40 09/19/16 18:58 109 25 40 09/19/16 16:42 116 21 40 09/19/16 16:40 102.2 127 25 113/61 98 Mechanical Ventilator 45 09/19/16 16:00 45 09/19/16 16:00 102.2 135 31 113/61 97 Mechanical Ventilator 40 09/19/16 16:00 123 09/19/16 15:19 129 27 40 09/19/16 14:11 102.2 09/19/16 13:11 136 26 40 09/19/16 12:00 99.1 135 31 132/79 97 Mechanical Ventilator 40 09/19/16 12:00 40 09/19/16 12:00 131 09/19/16 11:09 109 22 40 Intake and Output 09/19/16 09/20/16 19:00 07:00 Intake Total 1624 ml 1848.3 ml Output Total 2500 ml 2200 ml Balance -876 ml -351.7 ml Free Water 30 ml 100 ml IV Total 1114 ml 1308.3 ml Tube Feeding 330 ml 440 ml Other 150 ml Output Urine Total 2500 ml 2200 ml Laboratory Tests 09/20/16 04:00: Sodium Level 134L, Potassium Level 4.3, Chloride Level 93L, Carbon Dioxide Level 28, Anion Gap 13, Blood Urea Nitrogen 8, Creatinine 0.3L, Estimat Glomerular Filtration Rate > 60, Glucose Level 122#H, Calcium Level 9.2 Height (Feet): 5 Height (Inches): 10.00 Weight (Pounds): 160 Objective WDWN NAD stable breath sounds bilaterally without rhonchi or wheeze [id number] without MRG NABS nontender no HSM; GT no CCE nonfocal poor LOC LAURA ROSENBAUM Sep 20, 2016 10:40
--- NOTE | 2016-09-20 11:06 | Diagnostic Imaging Report ---
Clinical history: Cough. Technique: Portable AP chest radiograph was obtained. Comparison: 09/16/16. Findings: Confluent opacity in the right lower lung, increased since the prior examination, with partial obscuration of the right hemidiaphragm is compatible with worsening right lower lung pneumonia. Trace right pleural effusion is suspected. The left upper extreme PICC has been removed. There is otherwise no significant interval change in the interval, allowing for differences in technique and positioning. Impression: 1. Interval worsening of right basilar aeration with increasing confluent right lower lung opacity compatible with worsening pneumonia. Trace right pleural effusion noted. 2. Tracheostomy tube and right upper extremity PICC, stable. Left upper cervix which has been removed.
[2016-09-20 12:00] VITALS: BP 119/75
[2016-09-20] MEDS: LORazepam Inj 2mg/ml 1ml IV PRN (14:24)
[2016-09-20 15:53] VITALS: BP 105/64
[2016-09-20] MEDS ORDERED: NS 275ml ONE (17:23)
[2016-09-20] MEDS ORDERED: Tubing IV Secondary IV ONE (17:23)
[2016-09-20] MEDS ORDERED: NS 110ml ONE (17:23)
[2016-09-20 20:00] VITALS: BP 144/86
[2016-09-20] MEDS: levETIRAcetam 500mg/5ml Liquid NG SCH (21:14)
[2016-09-20] MEDS: Levemir Flexpen SUBQ SCH (21:17)
[2016-09-21] VITALS: BP 113/77
[2016-09-21 04:00] VITALS: BP 115/74
[2016-09-21] MEDS: NovoLOG Insulin Flexpen SUBQ SCH ×3 (05:38→18:49)
[2016-09-21 08:00] VITALS: BP 114/74
--- NOTE | 2016-09-21 08:11 | General Progress Note ---
Assessment/Plan Assessment/Plan Respiratory failure tachycardia sepsis Bacteremia ALOC leukocytosis Anemia VRE proteus UTI PLAN IV antibiotics for additional 2 days with colistin inhaled amikacin care noted and reviewed guarded overall control pulse with digoxin and beta blockers dc planning to SNF today now on keppra off iv fluids impression, plan, and exam edited and reviewed in detail care discussed with RN Subjective Allergies: Coded Allergies: No Known Allergies (Unverified , 07/21/16) Subjective care noted Bcx positive VRE positive on inhaled amikacin and colistin dc held due to tachycardia Objective Last 24 Hour Vital Signs Date Time Temp Pulse Resp B/P Pulse Ox O2 Delivery O2 Flow Rate FiO2 09/21/16 06:57 104 24 40 09/21/16 05:06 101 28 40 09/21/16 04:15 96 09/21/16 04:09 40 09/21/16 04:00 98.1 104 23 115/74 100 Mechanical Ventilator 40 09/21/16 03:07 95 17 40 09/21/16 02:39 92 16 Mechanical Ventilator 40 09/21/16 01:21 92 14 40 09/21/16 00:00 97.9 91 14 113/77 100 40 09/21/16 00:00 91 09/21/16 00:00 40 09/20/16 23:50 94 16 100 Mechanical Ventilator 40 09/20/16 23:37 92 16 100 Mechanical Ventilator 40 09/20/16 23:23 92 19 40 09/20/16 21:21 94 18 40 09/20/16 21:14 104 144/86 09/20/16 20:15 40 09/20/16 20:14 104 09/20/16 20:00 97.7 114 24 144/86 100 09/20/16 19:19 113 24 40 09/20/16 17:12 112 18 40 09/20/16 16:00 109 09/20/16 16:00 40 09/20/16 15:53 98.2 104 15 105/64 100 09/20/16 15:15 103 16 40 09/20/16 13:09 95 25 40 09/20/16 12:01 40 09/20/16 12:00 97.5 88 22 119/75 100 Mechanical Ventilator 40 09/20/16 12:00 88 09/20/16 11:05 87 19 40 2/19/17 09:16 84 21 40 09/20/16 08:17 106 112/69 09/20/16 08:16 106 Intake and Output 09/20/16 09/21/16 19:00 07:00 Intake Total 1176.5 ml 545 ml Output Total 1100 ml 3100 ml Balance 76.5 ml -2555 ml Free Water 100 ml 50 ml IV Total 496.5 ml Tube Feeding 550 ml 495 ml Other 30 ml Output Urine Total 1100 ml 3100 ml Labs Test 09/18/16 11:40 09/19/16 10:30 09/20/16 04:00 Glucose Level 32 mg/dL (74-106) 324 mg/dL (74-106) 122 mg/dL (74-106) White Blood Count 12.5 K/UL (4.8-10.8) Red Blood Count 2.90 M/UL (4.70-6.10) Hemoglobin 8.9 G/DL (14.2-18.0) Hematocrit 27.5 % (42.0-52.0) Mean Corpuscular Volume 95 FL (80-99) Mean Corpuscular Hemoglobin 30.8 PG (27.0-31.0) Mean Corpuscular Hemoglobin Concent 32.5 G/DL (32.0-36.0) Red Cell Distribution Width 14.3 % (11.6-14.8) Platelet Count 541 K/UL (150-450) Mean Platelet Volume 6.2 FL (6.5-10.1) Neutrophils (%) (Auto) 78.1 % (45.0-75.0) Lymphocytes (%) (Auto) 9.0 % (20.0-45.0) Monocytes (%) (Auto) 7.3 % (1.0-10.0) Eosinophils (%) (Auto) 4.4 % (0.0-3.0) Basophils (%) (Auto) 1.3 % (0.0-2.0) Sodium Level 130 mEQ/L (135-145) 134 mEQ/L (135-145) Potassium Level 5.3 mEQ/L (3.4-4.9) 4.3 mEQ/L (3.4-4.9) Chloride Level 88 mEQ/L (98-107) 93 mEQ/L (98-107) Carbon Dioxide Level 29 mEQ/L (20-30) 28 mEQ/L (20-30) Anion Gap 13 (5-15) 13 (5-15) Blood Urea Nitrogen 9 mg/dL (7-23) 8 mg/dL (7-23) Creatinine 0.4 mg/dL (0.7-1.2) 0.3 mg/dL (0.7-1.2) Estimat Glomerular Filtration Rate > 60 mL/min (>60) > 60 mL/min (>60) Calcium Level 8.7 mg/dL (8.6-10.2) 9.2 mg/dL (8.6-10.2) Total Bilirubin 0.5 mg/dL (0.0-1.2) Direct Bilirubin 0.4 mg/dL (0.1-0.3) Aspartate Amino Transf (AST/SGOT) 32 U/L (5-40) Alanine Aminotransferase (ALT/SGPT) 38 U/L (3-41) Alkaline Phosphatase 890 U/L (40-129) Total Protein 6.3 g/dL (6.6-8.7) Albumin 2.6 g/dL (3.5-5.2) Height (Feet): 5 Height (Inches): 10.00 Weight (Pounds): 160 Objective WDWN NAD stable breath sounds bilaterally without rhonchi or wheeze [id number] minimally tachy without MRG NABS nontender no HSM; GT no CCE nonfocal poor LOC and withdrawn LAURA ROSENBAUM Sep 21, 2016 08:11
[2016-09-21] MEDS: Amikacin for Inhalation 2ML INH SCH ×2 (10:02→22:22)
[2016-09-21] MEDS: carBAMazepine 200mg tab GT SCH ×3 (10:26→18:47)
[2016-09-21] MEDS: Valproic Acid 250mg/5ml Liquid NG SCH ×2 (10:26→22:03)
[2016-09-21] MEDS: Ascorbic Acid 500mg tab GT SCH (10:26)
[2016-09-21] MEDS: Zinc Sulfate 220mg cap GT SCH (10:26)
[2016-09-21] MEDS: Docusate 100mg tablet GT SCH ×2 (10:26→18:46)
[2016-09-21] MEDS: levETIRAcetam 500mg/5ml Liquid NG SCH ×2 (10:27→22:03)
[2016-09-21] MEDS: Digoxin Elixir 0.125mg GT SCH (10:27)
[2016-09-21] MEDS: Enoxaparin 40mg Inj SUBQ SCH (10:31)
[2016-09-21] MEDS: Pantoprazole Inj IVP SCH (10:34)
[2016-09-21] MEDS: Colistin 150mg vial IVP SCH ×2 (10:48→22:05)
--- NOTE | 2016-09-21 11:06 | Infectious Diseases Prog Note ---
"Assessment/Plan Assessment/Plan antibiotics : inhaled amikacin, colistin A 1. klebsiella sepsis 2. acenitobacter | klebsiella | providencia pneumonia 3. proteus UTI 4. rectal VRE colonization 5. leucocytosis improving P 1. continue inhaled amikacin 2. continue colistin iv 2 more days 3. will follow up cultures Subjective ROS Limited/Unobtainable: Yes Allergies: Coded Allergies: No Known Allergies (Unverified , 07/21/16) Objective Vital Signs Last 24 Hour Vital Signs Date Time Temp Pulse Resp B/P Pulse Ox O2 Delivery O2 Flow Rate FiO2 09/21/16 10:27 120 09/21/16 10:25 112 114/74 09/21/16 08:45 104 24 40 09/21/16 08:00 113 09/21/16 08:00 98.4 112 25 114/74 99 Mechanical Ventilator 40 09/21/16 08:00 40 09/21/16 06:57 104 24 40 09/21/16 05:06 101 28 40 09/21/16 04:15 96 09/21/16 04:09 40 09/21/16 04:00 98.1 104 23 115/74 100 Mechanical Ventilator 40 09/21/16 03:07 95 17 40 09/21/16 02:39 92 16 Mechanical Ventilator 40 09/21/16 01:21 92 14 40 09/21/16 00:00 97.9 91 14 113/77 100 40 09/21/16 00:00 91 09/21/16 00:00 40 09/20/16 23:50 94 16 100 Mechanical Ventilator 40 09/20/16 23:37 92 16 100 Mechanical Ventilator 40 09/20/16 23:23 92 19 40 09/20/16 21:21 94 18 40 09/20/16 21:14 104 144/86 09/20/16 20:15 40 09/20/16 20:14 104 09/20/16 20:00 97.7 114 24 144/86 100 09/20/16 19:19 113 24 40 09/20/16 17:12 112 18 40 09/20/16 16:00 109 09/20/16 16:00 40 09/20/16 15:53 98.2 104 15 105/64 100 09/20/16 15:15 103 16 40 09/20/16 13:09 95 25 40 09/20/16 12:01 40 09/20/16 12:00 97.5 88 22 119/75 100 Mechanical Ventilator 40 09/20/16 12:00 88 09/20/16 11:05 87 19 40 Height (Feet): 5 Height (Inches): 10.00 Weight (Pounds): 160 HEENT: status post trach Respiratory/Chest: lungs clear Cardiovascular: normal rate, regular rhythm, no gallop/murmur Abdomen: soft, non tender, other - GT Extremities: no edema, other - right arm PICC TONJA HALL Sep 21, 2016 11:06"
[2016-09-21 12:00] VITALS: BP 117/77
[2016-09-21 16:00] VITALS: BP 119/66
[2016-09-21 20:00] VITALS: BP 109/65
[2016-09-21] MEDS: Epogen (for non ESRD use) SUBQ SCH (22:05)
[2016-09-21] MEDS: Levemir Flexpen SUBQ SCH (22:11)
[2016-09-22] VITALS: BP 114/69
[2016-09-22] MEDS: NovoLOG Insulin Flexpen SUBQ SCH ×4 (00:29→18:22)
[2016-09-22 04:00] VITALS: BP 110/78
[2016-09-22 08:00] VITALS: BP 105/63
[2016-09-22] MEDS: Valproic Acid 250mg/5ml Liquid NG SCH ×2 (09:21→21:16)
[2016-09-22] MEDS: levETIRAcetam 500mg/5ml Liquid NG SCH ×2 (09:22→21:16)
[2016-09-22] MEDS: Digoxin Elixir 0.125mg GT SCH (09:22)
[2016-09-22] MEDS: Enoxaparin 40mg Inj SUBQ SCH (09:23)
[2016-09-22] MEDS: Ascorbic Acid 500mg tab GT SCH (09:23)
[2016-09-22] MEDS: Zinc Sulfate 220mg cap GT SCH (09:23)
[2016-09-22] MEDS: Pantoprazole Inj IVP SCH (09:23)
[2016-09-22] MEDS: carBAMazepine 200mg tab GT SCH ×3 (09:24→18:19)
[2016-09-22] MEDS: Docusate 100mg tablet GT SCH ×2 (09:24→18:18)
--- NOTE | 2016-09-22 10:48 | Infectious Diseases Prog Note ---
"Assessment/Plan Assessment/Plan antibiotics : inhaled amikacin, colistin A 1. klebsiella sepsis 2. acenitobacter | klebsiella | providencia pneumonia 3. proteus UTI 4. rectal VRE colonization 5. leucocytosis improving P 1. continue inhaled amikacin 4 more days 2. continue colistin iv 1 more day 3. will follow up cultures Subjective ROS Limited/Unobtainable: Yes Allergies: Coded Allergies: No Known Allergies (Unverified , 07/21/16) Objective Vital Signs Last 24 Hour Vital Signs Date Time Temp Pulse Resp B/P Pulse Ox O2 Delivery O2 Flow Rate FiO2 09/22/16 09:24 122 105/63 09/22/16 09:22 122 09/22/16 09:16 122 26 40 09/22/16 08:00 120 09/22/16 08:00 99.7 122 26 105/63 97 Mechanical Ventilator 40 09/22/16 08:00 40 09/22/16 07:24 120 23 40 09/22/16 05:27 115 20 40 09/22/16 04:04 113 09/22/16 04:00 40 09/22/16 04:00 97.2 112 20 110/78 97 Mechanical Ventilator 40 09/22/16 03:22 101 17 40 09/22/16 01:42 125 19 40 09/22/16 00:07 109 09/22/16 00:00 40 09/22/16 00:00 97.8 110 20 114/69 98 Mechanical Ventilator 40 09/21/16 22:34 125 16 100 Mechanical Ventilator 40 09/21/16 22:24 127 14 100 Mechanical Ventilator 40 09/21/16 22:23 123 14 40 09/21/16 22:22 129 14 40 09/21/16 22:04 79 109/65 09/21/16 20:10 40 09/21/16 20:00 98.4 77 20 109/65 99 Mechanical Ventilator 40 79 09/21/16 20:00 134 09/21/16 19:16 133 29 40 09/21/16 17:06 109 23 40 09/21/16 16:00 40 09/21/16 16:00 119 09/21/16 16:00 97.8 119 20 119/66 100 Mechanical Ventilator 40 09/21/16 14:58 114 22 40 09/21/16 12:56 101 27 40 09/21/16 12:00 40 09/21/16 12:00 98 09/21/16 12:00 98.6 99 27 117/77 100 Mechanical Ventilator 40 09/21/16 11:03 102 23 40 Height (Feet): 5 Height (Inches): 10.00 Weight (Pounds): 160 HEENT: status post trach Respiratory/Chest: lungs clear Cardiovascular: normal rate, regular rhythm, no gallop/murmur Abdomen: soft, non tender, other - GT Extremities: no edema, other - right arm PICC TONJA HALL Sep 22, 2016 10:48"
--- NOTE | 2016-09-22 10:51 | General Progress Note ---
Assessment/Plan Assessment/Plan Respiratory failure tachycardia sepsis Bacteremia ALOC leukocytosis Anemia VRE proteus UTI PLAN IV antibiotics for additional 1 days with colistin inhaled amikacin care noted and reviewed guarded overall control pulse with digoxin and beta blockers dc planning to SNF when pulse better now on keppra call cardiology impression, plan, and exam edited and reviewed in detail care discussed with RN Subjective ROS Limited/Unobtainable: Yes Allergies: Coded Allergies: No Known Allergies (Unverified , 07/21/16) Subjective care noted trying to dc but persistent tachycardia on inhaled amikacin and colistin dc on hold Objective Last 24 Hour Vital Signs Date Time Temp Pulse Resp B/P Pulse Ox O2 Delivery O2 Flow Rate FiO2 09/22/16 09:24 122 105/63 09/22/16 09:22 122 09/22/16 09:16 122 26 40 09/22/16 08:00 120 09/22/16 08:00 99.7 122 26 105/63 97 Mechanical Ventilator 40 09/22/16 08:00 40 09/22/16 07:24 120 23 40 09/22/16 05:27 115 20 40 09/22/16 04:04 113 09/22/16 04:00 40 09/22/16 04:00 97.2 112 20 110/78 97 Mechanical Ventilator 40 09/22/16 03:22 101 17 40 09/22/16 01:42 125 19 40 09/22/16 00:07 109 09/22/16 00:00 40 09/22/16 00:00 97.8 110 20 114/69 98 Mechanical Ventilator 40 09/21/16 22:34 125 16 100 Mechanical Ventilator 40 09/21/16 22:24 127 14 100 Mechanical Ventilator 40 09/21/16 22:23 123 14 40 09/21/16 22:22 129 14 40 09/21/16 22:04 79 109/65 09/21/16 20:10 40 09/21/16 20:00 98.4 77 20 109/65 99 Mechanical Ventilator 40 79 09/21/16 20:00 134 09/21/16 19:16 133 29 40 09/21/16 17:06 109 23 40 09/21/16 16:00 40 09/21/16 16:00 119 09/21/16 16:00 97.8 119 20 119/66 100 Mechanical Ventilator 40 09/21/16 14:58 114 22 40 09/21/16 12:56 101 27 40 09/21/16 12:00 40 09/21/16 12:00 98 09/21/16 12:00 98.6 99 27 117/77 100 Mechanical Ventilator 40 09/21/16 11:03 102 23 40 Intake and Output 09/21/16 09/22/16 19:00 07:00 Intake Total 880 ml 660 ml Output Total 650 ml 700 ml Balance 230 ml -40 ml Free Water 100 ml Tube Feeding 660 ml 660 ml Other 120 ml Output Urine Total 650 ml 700 ml Height (Feet): 5 Height (Inches): 10.00 Weight (Pounds): 160 Objective WDWN NAD stable breath sounds bilaterally without rhonchi or wheeze S1S2RR minimally tachy without MRG NABS nontender no HSM; GT no CCE nonfocal poor LOC and withdrawn LAURA ROSENBAUM Sep 22, 2016 10:51
[2016-09-22] MEDS: Amikacin for Inhalation 2ML INH SCH ×2 (10:54→19:36)
[2016-09-22] MEDS: Colistin 150mg vial IVP SCH (11:55)
[2016-09-22 12:00] VITALS: BP 104/66
[2016-09-22 16:00] VITALS: BP 105/61
[2016-09-22] MEDS: Acetaminophen 650mg/20.3ml ORAL PRN (16:30)
[2016-09-22 20:00] VITALS: BP 108/67
[2016-09-22] MEDS: Levemir Flexpen SUBQ SCH (21:20)
[2016-09-23] VITALS: BP 104/61
[2016-09-23] MEDS: NovoLOG Insulin Flexpen SUBQ SCH ×4 (00:47→19:50)
[2016-09-23] MEDS: Colistin 150mg vial IVP SCH (01:29)
[2016-09-23 04:00] VITALS: BP 109/65
[2016-09-23] MEDS: Amikacin for Inhalation 2ML INH SCH ×2 (06:58→20:03)
[2016-09-23 08:00] VITALS: BP 103/64
--- NOTE | 2016-09-23 08:54 | General Progress Note ---
Assessment/Plan Assessment/Plan Respiratory failure tachycardia sepsis Bacteremia ALOC leukocytosis Anemia VRE proteus UTI PLAN IV antibiotics possible dc inhaled amikacin ?dc care noted and reviewed guarded overall control pulse with digoxin and beta blockers dc planning to SNF when pulse better called cardiology impression, plan, and exam edited and reviewed in detail care discussed with RN Subjective Allergies: Coded Allergies: No Known Allergies (Unverified , 07/21/16) Subjective care noted still with tachycardia on inhaled amikacin and colistin dc on hold Objective Last 24 Hour Vital Signs Date Time Temp Pulse Resp B/P Pulse Ox O2 Delivery O2 Flow Rate FiO2 09/23/16 07:02 103 14 100 Mechanical Ventilator 40 09/23/16 07:00 100 14 40 09/23/16 06:55 40 09/23/16 06:55 100 14 98 Mechanical Ventilator 40 09/23/16 05:22 105 21 40 09/23/16 04:00 97.7 104 21 109/65 97 Mechanical Ventilator 40 09/23/16 04:00 40 09/23/16 04:00 104 09/23/16 03:01 101 19 40 09/23/16 01:08 99 20 40 09/23/16 00:00 98.2 93 18 104/61 98 Mechanical Ventilator 40 09/23/16 00:00 100 09/23/16 00:00 40 09/22/16 23:08 93 22 40 09/22/16 21:30 97 22 40 09/22/16 21:16 110 112/62 09/22/16 20:00 40 09/22/16 20:00 97.3 110 25 108/67 99 Mechanical Ventilator 40 09/22/16 20:00 110 09/22/16 19:45 109 14 100 Mechanical Ventilator 40 09/22/16 19:45 111 25 100 Mechanical Ventilator 40 09/22/16 19:45 40 09/22/16 19:23 114 21 40 09/22/16 17:15 113 25 40 09/22/16 17:00 99.8 09/22/16 16:00 110 09/22/16 16:00 40 09/22/16 16:00 100.8 119 22 105/61 99 Mechanical Ventilator 40 09/22/16 15:00 116 27 40 09/22/16 13:14 118 24 40 09/22/16 12:00 98.2 116 15 104/66 100 Mechanical Ventilator 40 09/22/16 12:00 120 09/22/16 12:00 40 09/22/16 10:56 106 21 40 09/22/16 10:55 106 19 100 Mechanical Ventilator 40 09/22/16 10:55 108 15 100 Mechanical Ventilator 40 09/22/16 10:55 40 09/22/16 09:24 122 105/63 09/22/16 09:22 122 09/22/16 09:16 122 26 40 Intake and Output 09/22/16 09/23/16 19:00 07:00 Intake Total 810 ml 705 ml Output Total 450 ml 700 ml Balance 360 ml 5 ml Free Water 150 ml 100 ml Tube Feeding 660 ml 605 ml Output Urine Total 700 ml Stool Total 450 ml # Bowel Movements 1 Height (Feet): 5 Height (Inches): 10.00 Weight (Pounds): 160 Objective WDWN NAD stable breath sounds bilaterally without rhonchi or wheeze S1S2RR minimally tachy without MRG NABS nontender no HSM; GT no CCE nonfocal poor LOC and withdrawn LAURA ROSENBAUM Sep 23, 2016 08:54
[2016-09-23] MEDS: Zinc Sulfate 220mg cap GT SCH (09:13)
[2016-09-23] MEDS: Docusate 100mg tablet GT SCH ×2 (09:13→18:09)
[2016-09-23] MEDS: Ascorbic Acid 500mg tab GT SCH (09:13)
[2016-09-23] MEDS: Pantoprazole Inj IVP SCH (09:13)
[2016-09-23] MEDS: Valproic Acid 250mg/5ml Liquid NG SCH ×2 (09:14→20:34)
[2016-09-23] MEDS: carBAMazepine 200mg tab GT SCH ×3 (09:14→18:09)
[2016-09-23] MEDS: levETIRAcetam 500mg/5ml Liquid NG SCH ×2 (09:15→20:34)
[2016-09-23] MEDS: Digoxin Elixir 0.125mg GT SCH (09:15)
[2016-09-23] MEDS: Enoxaparin 40mg Inj SUBQ SCH (09:17)
[2016-09-23 12:00] VITALS: BP 116/67
--- NOTE | 2016-09-23 13:36 | Infectious Diseases Prog Note ---
Assessment/Plan Assessment/Plan A: [facility] sepsis s/p Rx Proteus UTI Pneumonia Multiple pressure ulcers VDRF Hypoglycemia Elevated transaminase Persistent vegetative state Anemia VRE colonization P: discontinue Colistin continue Amikacin inhaler X 3 days F/U CXR Subjective ROS Limited/Unobtainable: Yes Allergies: Coded Allergies: No Known Allergies (Unverified , 07/21/16) Objective Vital Signs Last 24 Hour Vital Signs Date Time Temp Pulse Resp B/P Pulse Ox O2 Delivery O2 Flow Rate FiO2 09/23/16 12:30 106 24 40 09/23/16 12:00 40 09/23/16 11:05 103 26 40 09/23/16 09:15 110 09/23/16 09:15 110 103/64 09/23/16 09:09 115 25 40 09/23/16 08:00 97.9 107 21 103/64 95 Mechanical Ventilator 40 09/23/16 08:00 40 09/23/16 08:00 110 09/23/16 07:02 103 14 100 Mechanical Ventilator 40 09/23/16 07:00 100 14 40 09/23/16 06:55 40 09/23/16 06:55 100 14 98 Mechanical Ventilator 40 09/23/16 05:22 105 21 40 09/23/16 04:00 97.7 104 21 109/65 97 Mechanical Ventilator 40 09/23/16 04:00 40 09/23/16 04:00 104 09/23/16 03:01 101 19 40 09/23/16 01:08 99 20 40 09/23/16 00:00 98.2 93 18 104/61 98 Mechanical Ventilator 40 09/23/16 00:00 100 09/23/16 00:00 40 09/22/16 23:08 93 22 40 09/22/16 21:30 97 22 40 09/22/16 21:16 110 112/62 09/22/16 20:00 40 09/22/16 20:00 97.3 110 25 108/67 99 Mechanical Ventilator 40 09/22/16 20:00 110 09/22/16 19:45 109 14 100 Mechanical Ventilator 40 09/22/16 19:45 111 25 100 Mechanical Ventilator 40 09/22/16 19:45 40 09/22/16 19:23 114 21 40 09/22/16 17:15 113 25 40 2/21/17 17:00 99.8 09/22/16 16:00 110 09/22/16 16:00 40 09/22/16 16:00 100.8 119 22 105/61 99 Mechanical Ventilator 40 09/22/16 15:00 116 27 40 Height (Feet): 5 Height (Inches): 10.00 Weight (Pounds): 160 General Appearance: no acute distress HEENT: status post trach Respiratory/Chest: lungs clear, other - on ventilator Cardiovascular: tachycardia Abdomen: soft, non tender, other - GT feding Extremities: no edema, other - PICC line Skin: ulcers, other - stage 4 sacral Neurologic/Psychiatric: other - awake Current Medications Medications (Trade) Dose Ordered Sig/Guillermo Route PRN Reason Start Time Stop Time Status Last Admin Dose Admin Acetaminophen (Tylenol) 650 mg Q6H PRN ORAL Mild Pain/Temp > 100.5 09/14/16 16:00 10/14/16 15:59 09/22/16 16:30 Amikacin Sulfate (Amikin) 500 mg Q12HR@ INH 09/20/16 10:00 09/27/16 09:59 09/23/16 06:58 Ascorbic Acid (Vitamin C) 500 mg DAILY GT 09/15/16 09:00 10/15/16 08:59 09/23/16 09:13 Bisacodyl (Dulcolax) 10 mg PRN PRN RECTAL Constipation 09/14/16 15:45 10/14/16 15:44 Carbamazepine (TEGretol) 400 mg TID GT 09/14/16 18:00 10/14/16 17:59 09/23/16 12:13 Colistimethate Sodium (Colistin) 150 mg Q12H IVP 09/17/16 11:00 09/24/16 10:59 09/23/16 01:29 Collagenase (Santyl) 1 applic Q24HRS TOPIC 09/16/16 04:00 10/16/16 03:59 09/23/16 04:16 Dextrose (Dextrose 50%) STAT PRN IV Hypoglycemia 09/14/16 16:15 10/14/16 16:14 09/21/16 12:07 Digoxin (Lanoxin) 0.25 mg DAILY GT 09/15/16 09:00 10/15/16 08:59 2/22/17 09:15 Docusate Sodium (Colace) 100 mg TWICE A DAY GT 09/14/16 18:00 10/14/16 17:59 09/23/16 09:13 Enoxaparin Sodium (Lovenox) 40 mg DAILY SUBQ 09/15/16 09:00 10/15/16 08:59 09/23/16 09:17 Epoetin Grabiel (Procrit (for non ESRD use)) 10,000 units WED-WED-WED SUBQ 09/14/16 21:00 10/14/16 20:59 09/21/16 22:05 Gemfibrozil (Lopid) 600 mg BID GT 09/14/16 18:00 10/14/16 17:59 09/23/16 09:13 Insulin Aspart (NovoLOG) Q6HR SUBQ 09/15/16 00:00 10/15/16 00:00 09/23/16 12:22 Insulin Detemir (Levemir) 25 units BEDTIME SUBQ 09/14/16 21:00 10/14/16 20:59 09/22/16 21:20 Lactulose (Cephulac) 20 gm DAILYPRN PRN ORAL Constipation 09/14/16 15:45 10/14/16 15:44 Levetiracetam (Keppra) 500 mg Q12HR NG 09/20/16 21:00 10/20/16 20:59 09/23/16 09:15 Magnesium Hydroxide (Mom) 30 ml DAILY PRN GT Constipation 09/14/16 15:45 10/14/16 15:44 Metoclopramide HCl (Reglan) 10 mg Q6H PRN GT Nausea & Vomiting 09/14/16 18:00 10/14/16 17:59 Metoprolol Tartrate (Lopressor) 100 mg EVERY 12 HOURS GT 09/14/16 21:00 10/14/16 20:59 09/23/16 09:15 Midodrine (Pro-Amatine) 2.5 mg THREE TIMES A DAY GT 09/14/16 18:00 10/14/16 17:59 09/23/16 12:13 Pantoprazole (Protonix) 40 mg DAILY IVP 09/15/16 09:00 10/15/16 08:59 09/23/16 09:13 Sodium Phosphate (Fleet's Sodium Phosl Enema) 133 ml DAILY PRN RECTAL Constipation 09/14/16 15:45 10/14/16 15:44 Valproic Acid (Depakene) 250 mg EVERY 12 HOURS NG 09/14/16 21:00 10/14/16 20:59 09/23/16 09:14 Zinc Sulfate (Zinc Sulfate) 220 mg DAILY GT 09/15/16 09:00 10/15/16 08:59 09/23/16 09:13 ADRIENNE FERRELL Sep 23, 2016 13:36
[2016-09-23 15:58] VITALS: BP 121/73
--- NOTE | 2016-09-23 16:14 | Wound Nurse Progress Note ---
Wound RN Progress Note Wound Consult Reassessment done on this PT. all wounds are same in sizes. will cont same wound care treatment. Pictures taken 11-7 shift 09/23/16. will cont to monitor. BETTIE FRANCISCO RN Sep 23, 2016 16:13
[2016-09-23 19:03] LABS: ANION GAP 20 (5-15); CALCIUM 9.4 mg/dL (8.6-10.2); CARBON DIOXIDE 23 mEQ/L (20-30); CHLORIDE 92 mEQ/L (98-107); CREATININE 0.6 mg/dL (0.7-1.2); GLOMERULAR FILTRATION RATE > 60 mL/min (>60); HEMOLYSIS 0; POTASSIUM 4.9 mEQ/L (3.4-4.9); SODIUM 135 mEQ/L (135-145)
[2016-09-23 20:00] VITALS: BP 124/71
[2016-09-23] MEDS: Epogen (for non ESRD use) SUBQ SCH (20:41)
[2016-09-23] MEDS: Levemir Flexpen SUBQ SCH (21:35)
[2016-09-24] VITALS: BP 109/64
[2016-09-24] MEDS: NovoLOG Insulin Flexpen SUBQ SCH ×4 (00:11→17:33)
[2016-09-24 04:00] VITALS: BP 111/68
[2016-09-24 05:40] LABS: MEAN CORPUSCULAR HEMOGLOBIN 30.7 PG (27.0-31.0); MEAN CORPUSCULAR HGB CONC 32.3 G/DL (32.0-36.0); MEAN CORPUSCULAR VOLUME 95 FL (80-99); MEAN PLATELET VOLUME 5.1 FL (6.5-10.1); PLATELET COUNT 830 K/UL (150-450); RED CELL DISTRIBUTION WIDTH 14.3 % (11.6-14.8); WHITE BLOOD COUNT 17.1 K/UL (4.8-10.8)
--- NOTE | 2016-09-24 07:12 | General Progress Note ---
Assessment/Plan Assessment/Plan Respiratory failure tachycardia sepsis Bacteremia ALOC leukocytosis Anemia VRE proteus UTI PLAN ID noted care noted and reviewed guarded overall control pulse with digoxin and beta blockers increase dose dc planning to SNF when pulse better called cardiology impression, plan, and exam edited and reviewed in detail care discussed with RN Subjective Allergies: Coded Allergies: No Known Allergies (Unverified , 07/21/16) Subjective care noted still with tachycardia dc on hold Objective Last 24 Hour Vital Signs Date Time Temp Pulse Resp B/P Pulse Ox O2 Delivery O2 Flow Rate FiO2 09/24/16 04:55 110 20 40 09/24/16 04:00 98.2 109 24 111/68 97 Mechanical Ventilator 40 09/24/16 04:00 40 09/24/16 04:00 110 09/24/16 03:16 112 21 40 09/24/16 01:30 97 21 40 09/24/16 00:00 98.2 98 18 109/64 100 Mechanical Ventilator 40 09/24/16 00:00 40 09/24/16 00:00 99 09/23/16 23:15 100 25 40 09/23/16 20:38 126 22 40 09/23/16 20:38 125 14 100 Mechanical Ventilator 40 09/23/16 20:34 122 126/78 09/23/16 20:06 40 09/23/16 20:05 125 14 100 Mechanical Ventilator 40 09/23/16 20:00 125 09/23/16 20:00 40 09/23/16 20:00 97.9 125 19 124/71 100 09/23/16 19:00 126 23 40 09/23/16 16:30 125 27 40 09/23/16 16:00 40 09/23/16 16:00 125 09/23/16 15:58 98.4 125 25 121/73 97 09/23/16 14:30 125 24 40 09/23/16 12:30 106 24 40 09/23/16 12:00 98.4 104 18 116/67 100 Mechanical Ventilator 40 09/23/16 12:00 40 09/23/16 12:00 104 09/23/16 11:05 103 26 40 09/23/16 09:15 110 09/23/16 09:15 110 103/64 09/23/16 09:09 115 25 40 09/23/16 08:00 97.9 107 21 103/64 95 Mechanical Ventilator 40 09/23/16 08:00 40 09/23/16 08:00 110 Intake and Output 09/23/16 09/24/16 19:00 07:00 Intake Total 860 ml 650 ml Output Total 1000 ml 1900 ml Balance -140 ml -1250 ml Free Water 200 ml 100 ml Tube Feeding 660 ml 550 ml Output Urine Total 1000 ml 1900 ml Laboratory Tests 09/23/16 18:20: Sodium Level 135, Potassium Level 4.9, Chloride Level 92L, Carbon Dioxide Level 23, Anion Gap 20H, Blood Urea Nitrogen 21, Creatinine 0.6L, Estimat Glomerular Filtration Rate > 60, Glucose Level 497H, Calcium Level 9.4 09/24/16 04:00: White Blood Count 17.1H, Red Blood Count 3.30L, Hemoglobin 10.1L, Hematocrit 31.4L, Mean Corpuscular Volume 95, Mean Corpuscular Hemoglobin 30.7, Mean Corpuscular Hemoglobin Concent 32.3, Red Cell Distribution Width 14.3, Platelet Count 830H, Mean Platelet Volume 5.1L, Neutrophils (%) (Auto) , Lymphocytes (%) (Auto) , Monocytes (%) (Auto) , Eosinophils (%) (Auto) , Basophils (%) (Auto) , Neutrophils % (Manual) [Pending], Lymphocytes % (Manual) [Pending], Platelet Estimate [Pending], Platelet Morphology [Pending] Height (Feet): 5 Height (Inches): 10.00 Weight (Pounds): 160 Objective WDWN NAD stable breath sounds bilaterally without rhonchi or wheeze S1S2RR minimally tachy without MRG NABS nontender no HSM; GT no CCE nonfocal poor LOC and withdrawn LAURA ROSENBAUM Sep 24, 2016 07:12
[2016-09-24 07:32] LABS: BASOPHILS % (MANUAL) 1 % (0-2); EOSINOPHILS % (MANUAL) 6 % (0-3); LYMPHOCYTES % (MANUAL) 9 % (20-45); NEUTROPHILS % (MANUAL) 81 % (45-75); TOTAL CELLS COUNTED 100
[2016-09-24 07:33] LABS: ANISOCYTOSIS 1+; BAND NEUTROPHILS % (MANUAL) 0 % (0-8); HYPOCHROMASIA 1+; PLATELET ESTIMATE INCREASED; PLATELET MORPHOLOGY NORMAL
[2016-09-24 08:00] VITALS: BP 123/81
[2016-09-24] MEDS: Ascorbic Acid 500mg tab GT SCH (09:00)
[2016-09-24] MEDS: carBAMazepine 200mg tab GT SCH ×3 (09:33→17:34)
[2016-09-24] MEDS: Valproic Acid 250mg/5ml Liquid NG SCH ×2 (09:33→20:49)
[2016-09-24] MEDS: Docusate 100mg tablet GT SCH ×2 (09:34→17:33)
[2016-09-24] MEDS: Zinc Sulfate 220mg cap GT SCH (09:34)
[2016-09-24] MEDS: Digoxin Elixir 0.125mg GT SCH (09:36)
[2016-09-24] MEDS: levETIRAcetam 500mg/5ml Liquid NG SCH ×2 (09:36→20:49)
[2016-09-24] MEDS: Pantoprazole Inj IVP SCH (09:36)
[2016-09-24] MEDS: Enoxaparin 40mg Inj SUBQ SCH (09:42)
[2016-09-24] MEDS: Levemir Flexpen SUBQ SCH ×2 (09:58→20:56)
[2016-09-24] MEDS: Amikacin for Inhalation 2ML INH SCH ×2 (10:24→21:31)
--- NOTE | 2016-09-24 10:54 | Infectious Diseases Prog Note ---
Assessment/Plan Assessment/Plan A: [facility] sepsis s/p Rx Leukocytosis worsening Pneumonia Multiple pressure ulcers VDRF Hypoglycemia Elevated transaminase Persistent vegetative state Anemia VRE colonization P: continue Amikacin inhaler X 2 days F/U CXR Subjective ROS Limited/Unobtainable: Yes Allergies: Coded Allergies: No Known Allergies (Unverified , 07/21/16) Objective Vital Signs Last 24 Hour Vital Signs Date Time Temp Pulse Resp B/P Pulse Ox O2 Delivery O2 Flow Rate FiO2 09/24/16 10:30 110 14 40 09/24/16 10:29 110 14 100 Mechanical Ventilator 40 09/24/16 10:24 113 27 99 Mechanical Ventilator 40 09/24/16 09:46 130 123/81 09/24/16 09:36 130 09/24/16 08:48 125 33 40 09/24/16 08:00 98.2 123 30 123/81 98 Mechanical Ventilator 40 09/24/16 07:51 120 26 40 09/24/16 04:55 110 20 40 09/24/16 04:00 98.2 109 24 111/68 97 Mechanical Ventilator 40 09/24/16 04:00 40 09/24/16 04:00 110 09/24/16 03:16 112 21 40 09/24/16 01:30 97 21 40 09/24/16 00:00 98.2 98 18 109/64 100 Mechanical Ventilator 40 09/24/16 00:00 40 09/24/16 00:00 99 09/23/16 23:15 100 25 40 09/23/16 20:38 126 22 40 09/23/16 20:38 125 14 100 Mechanical Ventilator 40 09/23/16 20:34 122 126/78 09/23/16 20:06 40 09/23/16 20:05 125 14 100 Mechanical Ventilator 40 09/23/16 20:00 125 09/23/16 20:00 40 09/23/16 20:00 97.9 125 19 124/71 100 09/23/16 19:00 126 23 40 09/23/16 16:30 125 27 40 09/23/16 16:00 40 09/23/16 16:00 125 09/23/16 15:58 98.4 125 25 121/73 97 09/23/16 14:30 125 24 40 09/23/16 12:30 106 24 40 09/23/16 12:00 98.4 104 18 116/67 100 Mechanical Ventilator 40 09/23/16 12:00 40 09/23/16 12:00 104 09/23/16 11:05 103 26 40 Height (Feet): 5 Height (Inches): 10.00 Weight (Pounds): 160 General Appearance: no acute distress HEENT: status post trach Respiratory/Chest: lungs clear, other - on ventilator Cardiovascular: tachycardia Abdomen: soft, non tender, other - GT feeding Extremities: no edema, other - R arm PICC line Skin: ulcers, other - sacral stage 4 Neurologic/Psychiatric: unresponsiveness, aphasia Laboratory Tests Test 09/23/16 18:20 09/24/16 04:00 Sodium Level 135 mEQ/L (135-145) Potassium Level 4.9 mEQ/L (3.4-4.9) Chloride Level 92 mEQ/L (98-107) L Carbon Dioxide Level 23 mEQ/L (20-30) Anion Gap 20 (5-15) H Blood Urea Nitrogen 21 mg/dL (7-23) Creatinine 0.6 mg/dL (0.7-1.2) L Estimat Glomerular Filtration Rate > 60 mL/min (>60) Glucose Level 497 mg/dL (74-106) H Calcium Level 9.4 mg/dL (8.6-10.2) White Blood Count 17.1 K/UL (4.8-10.8) H Red Blood Count 3.30 M/UL (4.70-6.10) L Hemoglobin 10.1 G/DL (14.2-18.0) L Hematocrit 31.4 % (42.0-52.0) L Mean Corpuscular Volume 95 FL (80-99) Mean Corpuscular Hemoglobin 30.7 PG (27.0-31.0) Mean Corpuscular Hemoglobin Concent 32.3 G/DL (32.0-36.0) Red Cell Distribution Width 14.3 % (11.6-14.8) Platelet Count 830 K/UL (150-450) H Mean Platelet Volume 5.1 FL (6.5-10.1) L Neutrophils (%) (Auto) % (45.0-75.0) Lymphocytes (%) (Auto) % (20.0-45.0) Monocytes (%) (Auto) % (1.0-10.0) Eosinophils (%) (Auto) % (0.0-3.0) Basophils (%) (Auto) % (0.0-2.0) Differential Total Cells Counted 100 Neutrophils % (Manual) 81 % (45-75) H Lymphocytes % (Manual) 9 % (20-45) L Monocytes % (Manual) 3 % (1-10) Eosinophils % (Manual) 6 % (0-3) H Basophils % (Manual) 1 % (0-2) Band Neutrophils 0 % (0-8) Platelet Estimate Increased H Platelet Morphology Normal Hypochromasia 1+ Anisocytosis 1+ Current Medications Medications (Trade) Dose Ordered Sig/Guillermo Route PRN Reason Start Time Stop Time Status Last Admin Dose Admin Acetaminophen (Tylenol) 650 mg Q6H PRN ORAL Mild Pain/Temp > 100.5 09/14/16 16:00 10/14/16 15:59 09/22/16 16:30 Amikacin Sulfate (Amikin) 500 mg Q12HR@10,22 INH 09/20/16 10:00 09/27/16 09:59 09/24/16 10:24 Ascorbic Acid (Vitamin C) 500 mg DAILY GT 09/15/16 09:00 10/15/16 08:59 09/24/16 09:00 Bisacodyl (Dulcolax) 10 mg PRN PRN RECTAL Constipation 09/14/16 15:45 10/14/16 15:44 Carbamazepine (TEGretol) 400 mg TID GT 09/14/16 18:00 10/14/16 17:59 09/24/16 09:33 Collagenase (Santyl) 1 applic Q24HRS TOPIC 09/16/16 04:00 10/16/16 03:59 09/24/16 05:21 Dextrose (Dextrose 50%) STAT PRN IV Hypoglycemia 09/14/16 16:15 10/14/16 16:14 09/24/16 05:22 Digoxin (Lanoxin) 0.25 mg DAILY GT 09/15/16 09:00 10/15/16 08:59 09/24/16 09:36 Docusate Sodium (Colace) 100 mg TWICE A DAY GT 09/14/16 18:00 10/14/16 17:59 09/24/16 09:34 Enoxaparin Sodium (Lovenox) 40 mg DAILY SUBQ 09/15/16 09:00 10/15/16 08:59 09/24/16 09:42 Epoetin Grabiel (Procrit (for non ESRD use)) 10,000 units WED-WED-WED SUBQ 09/14/16 21:00 10/14/16 20:59 09/23/16 20:41 Gemfibrozil (Lopid) 600 mg BID GT 09/14/16 18:00 10/14/16 17:59 09/24/16 09:34 Insulin Aspart (NovoLOG) Q6HR SUBQ 09/15/16 00:00 10/15/16 00:00 09/24/16 00:11 Insulin Detemir (Levemir) 15 units DAILY SUBQ 09/24/16 09:00 10/24/16 08:59 09/24/16 09:58 Insulin Detemir (Levemir) 30 units BEDTIME SUBQ 09/23/16 21:00 10/23/16 20:59 09/23/16 21:35 Lactulose (Cephulac) 20 gm DAILYPRN PRN ORAL Constipation 09/14/16 15:45 10/14/16 15:44 Levetiracetam (Keppra) 500 mg Q12HR NG 09/20/16 21:00 10/20/16 20:59 09/24/16 09:36 Magnesium Hydroxide (Mom) 30 ml DAILY PRN GT Constipation 09/14/16 15:45 10/14/16 15:44 Metoclopramide HCl (Reglan) 10 mg Q6H PRN GT Nausea & Vomiting 09/14/16 18:00 10/14/16 17:59 Metoprolol Tartrate (Lopressor) 100 mg EVERY 12 HOURS GT 09/14/16 21:00 10/14/16 20:59 09/24/16 09:46 Midodrine (Pro-Amatine) 5 mg THREE TIMES A DAY GT 09/24/16 09:00 10/24/16 08:59 09/24/16 09:34 Pantoprazole (Protonix) 40 mg DAILY IVP 09/15/16 09:00 10/15/16 08:59 09/24/16 09:36 Sodium Phosphate (Fleet's Sodium Phosl Enema) 133 ml DAILY PRN RECTAL Constipation 09/14/16 15:45 10/14/16 15:44 Valproic Acid (Depakene) 250 mg EVERY 12 HOURS NG 09/14/16 21:00 10/14/16 20:59 09/24/16 09:33 Zinc Sulfate (Zinc Sulfate) 220 mg DAILY GT 09/15/16 09:00 10/15/16 08:59 09/24/16 09:34 ADRIENNE FERRELL Sep 24, 2016 10:54
[2016-09-24 12:00] VITALS: BP 118/76
--- NOTE | 2016-09-24 12:02 | Diagnostic Imaging Report ---
Indication: Shortness of breath Technique: One view of the chest Comparison: 09/20/2016 Findings: Interim resolution of previously demonstrated right basilar infiltrate. Nodular opacities remain scattered throughout the right lung base. Tracheostomy, right arm PICC remain. The heart size is normal. Pleural spaces are clear Impression: Since 09/20/2016, interim resolution of previously demonstrated right basilar infiltrate.. There are nodular opacities of the right lung base, which may reflect residual disease Other findings as noted. No new infiltrate
[2016-09-24 16:00] VITALS: BP 125/80
[2016-09-24 19:00] VITALS: BP 127/77
[2016-09-25] VITALS: BP 117/64
[2016-09-25] MEDS: NovoLOG Insulin Flexpen SUBQ SCH ×4 (00:06→17:20)
--- NOTE | 2016-09-25 01:48 | Progress Note ---
DATE: 09/24/2016 CARDIOLOGY PROGRESS NOTE SUBJECTIVE: The patient's condition remains mostly unchanged. OBJECTIVE: GENERAL: The patient is afebrile and noncommunicative. VITAL SIGNS: Blood pressure range has been stable. Heart rate 97 to 125 and respiratory rate 14 to 24. HEENT: Tracheostomy. Bilateral breath sounds. HEART: Regular rhythm and rapid rate. Normal S1 and S2. No murmur. ABDOMEN: Soft. EXTREMITIES: No edema. Muscle atrophy noted. LABORATORY AND DIAGNOSTIC DATA: White count 17 and hemoglobin 10.1. IMPRESSION: 1. Secondary sinus tachycardia. 2. Leukocytosis. 3. Sepsis. 4. Autonomic dysfunction. 5. Severe protein-calorie malnutrition. 6. Anemia. 7. Vegetative state. PLAN: 1. Continue beta-meño. No role for digitalis. 2. Maintain adequate hydration. 3. Transfuse for hemoglobin less than 8 g. 4. DVT prophylaxis. 5. Respiratory hygiene. 6. Ventilator support. 7. Avoid albuterol or other beta-agonist. Jl Mann M.D. DR: Yvonne JOB#: [id number] CC:
--- NOTE | 2016-09-25 01:48 | Consultation ---
DATE OF CONSULTATION: 09/23/2016 REFERRING PHYSICIAN: Andres Wakefield M.D. REASON FOR CONSULTATION: Tachycardia. HISTORY OF PRESENT ILLNESS: This is an unfortunate debilitated 41-year-old male in vegetative state, who was admitted to the hospital almost 10 days ago with significant tachycardia and fevers due to sepsis and anemia. The patient has chronic respiratory failure and is with tracheostomy. Since admission, he has been treated with antibiotics, intravenous fluids, and has improved with regard to his infection. He continues to have episodes of tachycardia prompting this consultation. The patient had an echocardiogram several days ago revealed a normal ejection fraction and no significant valvular disease. There is no history of atrial fibrillation. PHYSICAL EXAMINATION: VITAL SIGNS: Blood pressure 124/71, pulse 125, respiration 19, afebrile. GENERAL: Temporal wasting. HEENT: Thin trach secretions. Muscle atrophy. LUNGS: Bilateral breath sounds. HEART: Regular rhythm, rapid rate. Normal S1, S2. ABDOMEN: Soft. EXTREMITIES: No edema. LABORATORY DATA: BUN 21, creatinine 0.6. Glucose . IMPRESSION: 1. Sinus tachycardia. 2. Sepsis. 3. Pneumonia. 4. Urinary tract infection. 5. Severe protein-calorie malnutrition. 6. Ventilator-dependent respiratory failure. 7. Anemia. 8. Autonomic dysfunction. PLAN: 1. Continue beta-blockade. No role for digitalis. Midodrine not useful in this clinical setting. It may actually precipitate or rebound tachycardia. 2. Transfuse for hemoglobin below 8 g. 3. Nutritional support with protein supplement. PROGNOSIS: Poor. Jl Mann M.D. DR: MARK JOB#: [id number] CC: DEAN
[2016-09-25 04:00] VITALS: BP 119/73
[2016-09-25 05:12] LABS: MEAN CORPUSCULAR HEMOGLOBIN 30.7 PG (27.0-31.0); MEAN CORPUSCULAR HGB CONC 31.9 G/DL (32.0-36.0); MEAN CORPUSCULAR VOLUME 96 FL (80-99); MEAN PLATELET VOLUME 5.2 FL (6.5-10.1); PLATELET COUNT 803 K/UL (150-450); RED BLOOD COUNT 3.15 M/UL (4.70-6.10); RED CELL DISTRIBUTION WIDTH 14.4 % (11.6-14.8)
[2016-09-25 05:25] LABS: WHITE BLOOD COUNT 23.3 K/UL (4.8-10.8)
--- NOTE | 2016-09-25 07:28 | General Progress Note ---
Assessment/Plan Assessment/Plan Respiratory failure tachycardia sepsis Bacteremia ALOC leukocytosis Anemia VRE proteus UTI PLAN ID noted care noted and reviewed guarded overall control pulse with digoxin and beta blockers increase dose ? pain; will try norco dc planning to SNF when pulse better called cardiology impression, plan, and exam edited and reviewed in detail care discussed with RN Subjective Allergies: Coded Allergies: No Known Allergies (Unverified , 07/21/16) Subjective care noted still tachycardic dc on hold Objective Last 24 Hour Vital Signs Date Time Temp Pulse Resp B/P Pulse Ox O2 Delivery O2 Flow Rate FiO2 09/25/16 07:06 126 15 40 09/25/16 05:10 128 15 40 09/25/16 04:00 40 09/25/16 04:00 99.0 130 28 119/73 100 Mechanical Ventilator 40 09/25/16 03:51 131 09/25/16 03:05 120 24 40 09/25/16 00:55 115 16 40 09/25/16 00:00 98.0 117 23 117/64 95 Mechanical Ventilator 40 09/25/16 00:00 40 09/24/16 23:52 115 09/24/16 23:10 110 18 40 09/24/16 21:38 107 21 100 Mechanical Ventilator 40 09/24/16 21:30 40 09/24/16 21:30 103 27 99 Mechanical Ventilator 40 09/24/16 21:28 103 27 40 09/24/16 20:49 132 127/77 09/24/16 20:00 119 09/24/16 20:00 40 09/24/16 19:26 126 27 40 09/24/16 19:00 97.3 100 20 127/77 98 Mechanical Ventilator 40 09/24/16 16:39 123 34 40 09/24/16 16:00 125 09/24/16 16:00 40 09/24/16 16:00 97.7 100 20 125/80 96 Mechanical Ventilator 40 09/24/16 15:22 117 31 40 09/24/16 12:44 114 33 40 09/24/16 12:00 97.7 108 31 118/76 98 Mechanical Ventilator 40 09/24/16 12:00 114 09/24/16 12:00 40 09/24/16 10:30 110 14 40 09/24/16 10:29 110 14 100 Mechanical Ventilator 40 09/24/16 10:24 113 27 99 Mechanical Ventilator 40 09/24/16 09:46 130 123/81 09/24/16 09:36 130 09/24/16 08:48 125 33 40 09/24/16 08:00 123 09/24/16 08:00 40 09/24/16 08:00 98.2 123 30 123/81 98 Mechanical Ventilator 40 09/24/16 07:51 120 26 40 Intake and Output 09/24/16 09/25/16 19:00 07:00 Intake Total 905 ml 1705 ml Output Total 700 ml 950 ml Balance 205 ml 755 ml Free Water 300 ml 1100 ml Tube Feeding 605 ml 605 ml Output Urine Total 700 ml 950 ml # Bowel Movements 1 Laboratory Tests 09/25/16 04:20: White Blood Count 23.3*H, Red Blood Count 3.15L, Hemoglobin 9.7L, Hematocrit 30.3L, Mean Corpuscular Volume 96, Mean Corpuscular Hemoglobin 30.7, Mean Corpuscular Hemoglobin Concent 31.9L, Red Cell Distribution Width 14.4, Platelet Count 803H, Mean Platelet Volume 5.2L, Neutrophils (%) (Auto) , Lymphocytes (%) (Auto) , Monocytes (%) (Auto) , Eosinophils (%) (Auto) , Basophils (%) (Auto) , Neutrophils % (Manual) [Pending], Lymphocytes % (Manual) [Pending], Platelet Estimate [Pending], Platelet Morphology [Pending] Height (Feet): 5 Height (Inches): 10.00 Weight (Pounds): 160 Objective WDWN NAD stable breath sounds bilaterally without rhonchi or wheeze S1S2RR minimally tachy without MRG NABS nontender no HSM; GT no CCE nonfocal poor LOC and withdrawn LAURA ROSENBAUM Sep 25, 2016 07:28
[2016-09-25 08:00] VITALS: BP 113/80
[2016-09-25] MEDS: Amikacin for Inhalation 2ML INH SCH ×2 (08:31→21:23)
[2016-09-25] MEDS: Zinc Sulfate 220mg cap GT SCH (08:43)
[2016-09-25] MEDS: Valproic Acid 250mg/5ml Liquid NG SCH ×2 (08:43→20:50)
[2016-09-25] MEDS: Docusate 100mg tablet GT SCH ×2 (08:43→17:19)
[2016-09-25] MEDS: Ascorbic Acid 500mg tab GT SCH (08:43)
[2016-09-25] MEDS: carBAMazepine 200mg tab GT SCH ×3 (08:44→17:19)
[2016-09-25] MEDS: Enoxaparin 40mg Inj SUBQ SCH (08:48)
[2016-09-25] MEDS: Levemir Flexpen SUBQ SCH ×3 (08:49→20:52)
[2016-09-25] MEDS: Pantoprazole Inj IVP SCH (08:50)
[2016-09-25] MEDS: levETIRAcetam 500mg/5ml Liquid NG SCH ×2 (08:51→20:51)
--- NOTE | 2016-09-25 10:53 | Infectious Diseases Prog Note ---
"Assessment/Plan Assessment/Plan antibiotics : inhaled amikacin A 1. klebsiella sepsis 2. acenitobacter | klebsiella | providencia pneumonia 3. proteus UTI 4. rectal VRE colonization 5. leucocytosis increasing P 1. continue inhaled amikacin 1 more day 2. stool for c.diff 3. add flagyl 4. will follow up cultures Subjective ROS Limited/Unobtainable: Yes Allergies: Coded Allergies: No Known Allergies (Unverified , 07/21/16) Objective Vital Signs Last 24 Hour Vital Signs Date Time Temp Pulse Resp B/P Pulse Ox O2 Delivery O2 Flow Rate FiO2 09/25/16 08:45 124 26 100 Mechanical Ventilator 40 09/25/16 08:45 126 113/80 09/25/16 08:35 124 27 40 09/25/16 08:34 40 09/25/16 08:34 126 17 98 Mechanical Ventilator 09/25/16 08:00 98.2 106 24 113/80 97 Mechanical Ventilator 40 09/25/16 07:06 126 15 40 09/25/16 05:10 128 15 40 09/25/16 04:00 40 09/25/16 04:00 99.0 130 28 119/73 100 Mechanical Ventilator 40 09/25/16 03:51 131 09/25/16 03:05 120 24 40 09/25/16 00:55 115 16 40 09/25/16 00:00 98.0 117 23 117/64 95 Mechanical Ventilator 40 09/25/16 00:00 40 09/24/16 23:52 115 09/24/16 23:10 110 18 40 09/24/16 21:38 107 21 100 Mechanical Ventilator 40 09/24/16 21:30 40 09/24/16 21:30 103 27 99 Mechanical Ventilator 40 09/24/16 21:28 103 27 40 09/24/16 20:49 132 127/77 09/24/16 20:00 119 09/24/16 20:00 40 09/24/16 19:26 126 27 40 09/24/16 19:00 97.3 100 20 127/77 98 Mechanical Ventilator 40 09/24/16 16:39 123 34 40 09/24/16 16:00 125 09/24/16 16:00 40 09/24/16 16:00 97.7 100 20 125/80 96 Mechanical Ventilator 40 09/24/16 15:22 117 31 40 09/24/16 12:44 114 33 40 09/24/16 12:00 97.7 108 31 118/76 98 Mechanical Ventilator 40 09/24/16 12:00 114 09/24/16 12:00 40 Height (Feet): 5 Height (Inches): 10.00 Weight (Pounds): 160 HEENT: status post trach Respiratory/Chest: lungs clear Cardiovascular: normal rate, regular rhythm, no gallop/murmur Abdomen: soft, non tender, other - GT Extremities: no edema, other - right arm PICC Laboratory Tests Test 09/25/16 04:20 White Blood Count 23.3 K/UL (4.8-10.8) *H Red Blood Count 3.15 M/UL (4.70-6.10) L Hemoglobin 9.7 G/DL (14.2-18.0) L Hematocrit 30.3 % (42.0-52.0) L Mean Corpuscular Volume 96 FL (80-99) Mean Corpuscular Hemoglobin 30.7 PG (27.0-31.0) Mean Corpuscular Hemoglobin Concent 31.9 G/DL (32.0-36.0) L Red Cell Distribution Width 14.4 % (11.6-14.8) Platelet Count 803 K/UL (150-450) H Mean Platelet Volume 5.2 FL (6.5-10.1) L Neutrophils (%) (Auto) % (45.0-75.0) Lymphocytes (%) (Auto) % (20.0-45.0) Monocytes (%) (Auto) % (1.0-10.0) Eosinophils (%) (Auto) % (0.0-3.0) Basophils (%) (Auto) % (0.0-2.0) Neutrophils % (Manual) Pending Lymphocytes % (Manual) Pending Platelet Estimate Pending Platelet Morphology Pending TONJA HALL Sep 25, 2016 10:53"
[2016-09-25 11:29] LABS: BAND NEUTROPHILS % (MANUAL) 0 % (0-8); BASOPHILS % (MANUAL) 0 % (0-2); EOSINOPHILS % (MANUAL) 2 % (0-3); LYMPHOCYTES % (MANUAL) 3 % (20-45); NEUTROPHILS % (MANUAL) 84 % (45-75); PLATELET ESTIMATE INCREASED; PLATELET MORPHOLOGY NORMAL; TOTAL CELLS COUNTED 100
[2016-09-25 11:30] LABS: ANISOCYTOSIS 1+
[2016-09-25 11:31] LABS: POLYCHROMASIA OCCASIONAL
[2016-09-25] MEDS: metroNIDAZOLE 500mg tab ORAL SCH ×3 (11:59→22:25)
[2016-09-25 12:00] VITALS: BP 107/65
[2016-09-25] MEDS: Norco 5mg/325mg tab ORAL PRN (12:00)
[2016-09-25 16:00] VITALS: BP 108/65
[2016-09-25 20:00] VITALS: BP 109/65
[2016-09-25] MEDS: Epogen (for non ESRD use) SUBQ SCH (22:17)
--- NOTE | 2016-09-25 23:18 | Progress Note ---
DATE: 09/25/2016 CARDIOLOGY PROGRESS NOTE: SUBJECTIVE: The patient is unresponsive, on ventilator support via tracheostomy. He continues to have episodes of rapid heart rate. OBJECTIVE: VITAL SIGNS: Blood pressure is 119/73, pulse rate 130, respiratory rate 28, and temperature 99.0 degrees. CHEST: Bilateral breath sounds. HEART: Regular rhythm. Rapid rate. Normal S1 and S2. ABDOMEN: Soft. No edema. LABORATORY DATA: White count is 23, hemoglobin 9.7, BUN 21, creatinine 0.6, and glucose 497. IMPRESSION: The patient is septic. There are complications contributing to sinus tachycardia include anemia, autonomic dysfunction, increased catecholamine state, and uncontrolled glucose. PLAN: 1. Hydration. 2. Insulin. 3. Antimicrobials, per Infectious Disease cardiology clinical consultant. 4. Cautious use of beta-meño. 5. No warfarin digitalis. Jl Mann M.D. DR: Evie JOB#: [id number] CC:
[2016-09-26] VITALS: BP 107/65
[2016-09-26 04:00] VITALS: BP 120/84
[2016-09-26] MEDS: metroNIDAZOLE 500mg tab ORAL SCH ×3 (05:17→21:52)
[2016-09-26] MEDS: NovoLOG Insulin Flexpen SUBQ SCH ×4 (05:18→17:41)
--- NOTE | 2016-09-26 06:48 | Progress Note ---
DATE: 09/26/2016 CARDIOLOGY PROGRESS NOTES: SUBJECTIVE: The patient is ventilator dependent. He has chronic encephalopathy. He does not appear to be uncomfortable. Monitor sinus tachycardia. OBJECTIVE: VITAL SIGNS: Blood pressure 120/84, pulse 105, respiration 16. No fever. NECK: Supple. LUNGS: With coarse breath sounds. No wheezing. CARDIAC: Regular rhythm and rate. Normal S1, S2. ABDOMEN: Soft. G-tube is intact. EXTREMITIES: No edema. IMPRESSION: 1. Sepsis secondary sinus tachycardia. 2. Autonomic dysfunction. 3. Acute and chronic respiratory failure. 4. Diabetes mellitus with hyperglycemia. PLAN: Antimicrobials. Await cultures. Titrate insulin. Maintain adequate hydration. Pain control as needed. Cautious use of beta-meño. Monitor heart rate. Jl Mann M.D. DR: ANDREW JOB#: [id number] CC:
[2016-09-26 08:00] VITALS: BP 107/70
[2016-09-26] MEDS: carBAMazepine 200mg tab GT SCH ×3 (08:51→17:36)
[2016-09-26] MEDS: Zinc Sulfate 220mg cap GT SCH (08:52)
[2016-09-26] MEDS: Ascorbic Acid 500mg tab GT SCH (08:52)
[2016-09-26] MEDS: Pantoprazole Inj IVP SCH (08:56)
[2016-09-26] MEDS: levETIRAcetam 500mg/5ml Liquid NG SCH ×2 (08:56→21:52)
[2016-09-26] MEDS: Docusate 100mg tablet GT SCH ×2 (08:59→17:37)
[2016-09-26] MEDS: Enoxaparin 40mg Inj SUBQ SCH (08:59)
[2016-09-26] MEDS: Valproic Acid 250mg/5ml Liquid NG SCH ×2 (09:00→21:52)
[2016-09-26] MEDS: Levemir Flexpen SUBQ SCH ×3 (09:00→22:19)
[2016-09-26] MEDS: Amikacin for Inhalation 2ML INH SCH (09:31)
--- NOTE | 2016-09-26 10:48 | General Progress Note ---
Assessment/Plan Assessment/Plan Respiratory failure tachycardia sepsis Bacteremia ALOC leukocytosis Anemia VRE proteus UTI PLAN ID noted care noted and reviewed guarded overall control pulse with digoxin and beta blockers PRN norco follow up labs and hope to proceed with dc dc planning to SNF when pulse and wbc better impression, plan, and exam edited and reviewed in detail care discussed with RN Subjective ROS Limited/Unobtainable: Yes Allergies: Coded Allergies: No Known Allergies (Unverified , 07/21/16) Subjective care noted minimally tachycardic wbc elevated dc on hold Objective Last 24 Hour Vital Signs Date Time Temp Pulse Resp B/P Pulse Ox O2 Delivery O2 Flow Rate FiO2 09/26/16 09:20 98 20 99 Mechanical Ventilator 40 09/26/16 09:20 98 17 97 Mechanical Ventilator 40 09/26/16 09:20 98 20 100 09/26/16 09:20 40 09/26/16 08:55 103 107/70 09/26/16 08:00 97.5 103 17 107/70 96 Mechanical Ventilator 40 09/26/16 08:00 108 09/26/16 08:00 40 09/26/16 06:40 103 19 100 09/26/16 05:14 103 16 40 09/26/16 04:00 101 09/26/16 04:00 40 09/26/16 04:00 97.2 105 16 120/84 97 Mechanical Ventilator 09/26/16 03:22 108 26 40 09/26/16 01:11 102 23 40 09/26/16 00:00 101 09/26/16 00:00 40 09/26/16 00:00 97.0 100 16 107/65 92 Room Air 09/25/16 22:55 104 23 40 09/25/16 21:28 98 15 99 Mechanical Ventilator 40 09/25/16 21:18 102 16 97 Mechanical Ventilator 40 09/25/16 21:18 101 16 40 09/25/16 21:18 40 09/25/16 20:50 119 107/65 09/25/16 20:00 113 09/25/16 20:00 99.1 118 28 109/65 90 Mechanical Ventilator 40 09/25/16 20:00 40 09/25/16 19:10 114 19 40 09/25/16 16:47 103 17 40 09/25/16 16:00 109 2/24/17 16:00 99.7 109 22 108/65 97 Mechanical Ventilator 40 09/25/16 16:00 40 09/25/16 14:55 107 15 40 09/25/16 12:48 101 28 40 09/25/16 12:00 98.2 105 28 107/65 90 Mechanical Ventilator 40 09/25/16 12:00 40 09/25/16 12:00 105 09/25/16 11:10 104 25 40 Intake and Output 09/25/16 09/26/16 19:00 07:00 Intake Total 1010 ml 860 ml Output Total 400 ml 450 ml Balance 610 ml 410 ml Free Water 350 ml 200 ml Tube Feeding 660 ml 660 ml Output Urine Total 400 ml 450 ml # Bowel Movements 2 Labs Test 09/23/16 18:20 09/24/16 04:00 09/25/16 04:20 Sodium Level 135 mEQ/L (135-145) Potassium Level 4.9 mEQ/L (3.4-4.9) Chloride Level 92 mEQ/L (98-107) Carbon Dioxide Level 23 mEQ/L (20-30) Anion Gap 20 (5-15) Blood Urea Nitrogen 21 mg/dL (7-23) Creatinine 0.6 mg/dL (0.7-1.2) Estimat Glomerular Filtration Rate > 60 mL/min (>60) Glucose Level 497 mg/dL (74-106) Calcium Level 9.4 mg/dL (8.6-10.2) White Blood Count 17.1 K/UL (4.8-10.8) 23.3 K/UL (4.8-10.8) Red Blood Count 3.30 M/UL (4.70-6.10) 3.15 M/UL (4.70-6.10) Hemoglobin 10.1 G/DL (14.2-18.0) 9.7 G/DL (14.2-18.0) Hematocrit 31.4 % (42.0-52.0) 30.3 % (42.0-52.0) Mean Corpuscular Volume 95 FL (80-99) 96 FL (80-99) Mean Corpuscular Hemoglobin 30.7 PG (27.0-31.0) 30.7 PG (27.0-31.0) Mean Corpuscular Hemoglobin Concent 32.3 G/DL (32.0-36.0) 31.9 G/DL (32.0-36.0) Red Cell Distribution Width 14.3 % (11.6-14.8) 14.4 % (11.6-14.8) Platelet Count 830 K/UL (150-450) 803 K/UL (150-450) Mean Platelet Volume 5.1 FL (6.5-10.1) 5.2 FL (6.5-10.1) Neutrophils (%) (Auto) % (45.0-75.0) % (45.0-75.0) Lymphocytes (%) (Auto) % (20.0-45.0) % (20.0-45.0) Monocytes (%) (Auto) % (1.0-10.0) % (1.0-10.0) Eosinophils (%) (Auto) % (0.0-3.0) % (0.0-3.0) Basophils (%) (Auto) % (0.0-2.0) % (0.0-2.0) Differential Total Cells Counted 100 100 Neutrophils % (Manual) 81 % (45-75) 84 % (45-75) Lymphocytes % (Manual) 9 % (20-45) 3 % (20-45) Monocytes % (Manual) 3 % (1-10) 11 % (1-10) Eosinophils % (Manual) 6 % (0-3) 2 % (0-3) Basophils % (Manual) 1 % (0-2) 0 % (0-2) Band Neutrophils 0 % (0-8) 0 % (0-8) Platelet Estimate Increased Increased Platelet Morphology Normal Normal Hypochromasia 1+ Anisocytosis 1+ 1+ Polychromasia Occasional Macrocytosis Height (Feet): 5 Height (Inches): 10.00 Weight (Pounds): 160 Objective WDWN NAD stable breath sounds bilaterally without rhonchi or wheeze S1S2RR minimally tachy without MRG NABS nontender no HSM; GT no CCE nonfocal poor LOC and withdrawn LAURA ROSENBAUM Sep 26, 2016 10:48
[2016-09-26 12:00] VITALS: BP 119/77
--- NOTE | 2016-09-26 12:05 | Infectious Diseases Prog Note ---
"Assessment/Plan Assessment/Plan antibiotics : inhaled amikacin, flagyl A 1. klebsiella sepsis 2. acenitobacter | klebsiella | providencia pneumonia 3. proteus UTI 4. rectal VRE colonization 5. leucocytosis increasing P 1. d/c inhaled amikacin 2. continue flagyl 3. will follow up cultures Subjective ROS Limited/Unobtainable: Yes Allergies: Coded Allergies: No Known Allergies (Unverified , 07/21/16) Objective Vital Signs Last 24 Hour Vital Signs Date Time Temp Pulse Resp B/P Pulse Ox O2 Delivery O2 Flow Rate FiO2 09/26/16 11:00 88 20 100 09/26/16 09:20 98 20 99 Mechanical Ventilator 40 09/26/16 09:20 98 17 97 Mechanical Ventilator 40 09/26/16 09:20 98 20 100 09/26/16 09:20 40 09/26/16 08:55 103 107/70 09/26/16 08:00 97.5 103 17 107/70 96 Mechanical Ventilator 40 09/26/16 08:00 108 09/26/16 08:00 40 09/26/16 06:40 103 19 100 09/26/16 05:14 103 16 40 09/26/16 04:00 101 09/26/16 04:00 40 09/26/16 04:00 97.2 105 16 120/84 97 Mechanical Ventilator 09/26/16 03:22 108 26 40 09/26/16 01:11 102 23 40 09/26/16 00:00 101 09/26/16 00:00 40 09/26/16 00:00 97.0 100 16 107/65 92 Room Air 09/25/16 22:55 104 23 40 09/25/16 21:28 98 15 99 Mechanical Ventilator 40 09/25/16 21:18 102 16 97 Mechanical Ventilator 40 09/25/16 21:18 101 16 40 09/25/16 21:18 40 09/25/16 20:50 119 107/65 09/25/16 20:00 113 09/25/16 20:00 99.1 118 28 109/65 90 Mechanical Ventilator 40 09/25/16 20:00 40 09/25/16 19:10 114 19 40 09/25/16 16:47 103 17 40 09/25/16 16:00 109 09/25/16 16:00 99.7 109 22 108/65 97 Mechanical Ventilator 40 09/25/16 16:00 40 09/25/16 14:55 107 15 40 09/25/16 12:48 101 28 40 Height (Feet): 5 Height (Inches): 10.00 Weight (Pounds): 160 HEENT: status post trach Respiratory/Chest: lungs clear Cardiovascular: normal rate, regular rhythm, no gallop/murmur Abdomen: soft, non tender, other - GT Extremities: no edema, other - right arm PICC TONJA HALL Sep 26, 2016 12:05"
[2016-09-26 16:00] VITALS: BP 104/60
[2016-09-26] MEDS ORDERED: NS 275ml ONE (17:04)
[2016-09-26] MEDS ORDERED: Sterile Water Irrig 1000ml IRRIG ONE (17:04)
[2016-09-26] MEDS ORDERED: Tubing IV Secondary IV ONE (17:04)
[2016-09-26 20:06] VITALS: BP 110/61
[2016-09-27] VITALS: BP 116/63
[2016-09-27] MEDS: NovoLOG Insulin Flexpen SUBQ SCH ×4 (00:08→18:00)
[2016-09-27 04:00] VITALS: BP 112/67
[2016-09-27 05:09] LABS: BASOPHILS % (AUTO) 1.3 % (0.0-2.0); EOSINOPHILS % (AUTO) 5.6 % (0.0-3.0); LYMPHOCYTES % (AUTO) 10.5 % (20.0-45.0); MEAN CORPUSCULAR HGB CONC 32.6 G/DL (32.0-36.0); MEAN CORPUSCULAR VOLUME 95 FL (80-99); MEAN PLATELET VOLUME 5.4 FL (6.5-10.1); MONOCYTES % (AUTO) 5.3 % (1.0-10.0); NEUTROPHILS % (AUTO) 77.3 % (45.0-75.0); PLATELET COUNT 729 K/UL (150-450); RED BLOOD COUNT 3.02 M/UL (4.70-6.10); WHITE BLOOD COUNT 12.2 K/UL (4.8-10.8)
[2016-09-27] MEDS: metroNIDAZOLE 500mg tab ORAL SCH ×3 (05:36→22:01)
[2016-09-27 05:56] LABS: ANION GAP 14 (5-15); CALCIUM 9.8 mg/dL (8.6-10.2); CARBON DIOXIDE 32 mEQ/L (20-30); CHLORIDE 92 mEQ/L (98-107); CREATININE 0.6 mg/dL (0.7-1.2); GLOMERULAR FILTRATION RATE > 60 mL/min (>60); HEMOLYSIS 0; POTASSIUM 4.5 mEQ/L (3.4-4.9); SODIUM 138 mEQ/L (135-145)
[2016-09-27 08:00] VITALS: BP 109/70
[2016-09-27] MEDS: Valproic Acid 250mg/5ml Liquid NG SCH ×2 (10:13→21:58)
[2016-09-27] MEDS: levETIRAcetam 500mg/5ml Liquid NG SCH ×2 (10:13→21:59)
[2016-09-27] MEDS: Ascorbic Acid 500mg tab GT SCH (10:14)
[2016-09-27] MEDS: Enoxaparin 40mg Inj SUBQ SCH (10:14)
[2016-09-27] MEDS: Pantoprazole Inj IVP SCH (10:15)
[2016-09-27] MEDS: Docusate 100mg tablet GT SCH ×2 (10:15→18:14)
[2016-09-27] MEDS: Zinc Sulfate 220mg cap GT SCH (10:15)
[2016-09-27] MEDS: carBAMazepine 200mg tab GT SCH ×3 (10:15→18:12)
[2016-09-27] MEDS: Levemir Flexpen SUBQ SCH ×2 (10:23→22:01)
[2016-09-27 12:00] VITALS: BP 107/72
--- NOTE | 2016-09-27 12:57 | Infectious Diseases Prog Note ---
Assessment/Plan Assessment/Plan A: [facility] sepsis s/p Rx Leukocytosis improving Pneumonia s/p Rx Multiple pressure ulcers VDRF Hypoglycemia Elevated transaminase Persistent vegetative state Anemia VRE colonization P: continue Flagyl Subjective ROS Limited/Unobtainable: Yes Allergies: Coded Allergies: No Known Allergies (Unverified , 07/21/16) Objective Vital Signs Last 24 Hour Vital Signs Date Time Temp Pulse Resp B/P Pulse Ox O2 Delivery O2 Flow Rate FiO2 09/27/16 12:14 82 09/27/16 12:00 10.0 40 09/27/16 10:52 87 15 100 09/27/16 10:14 93 109/70 09/27/16 09:13 93 17 100 09/27/16 08:00 93 09/27/16 08:00 97.3 93 16 109/70 98 Mechanical Ventilator 40 09/27/16 08:00 10.0 40 09/27/16 07:21 92 17 100 09/27/16 05:05 87 14 100 09/27/16 04:00 40 09/27/16 04:00 98.0 88 14 112/67 98 Mechanical Ventilator 40 09/27/16 03:42 88 09/27/16 03:30 84 14 100 09/27/16 01:27 83 18 100 09/27/16 00:00 98.4 86 17 116/63 99 Mechanical Ventilator 40 09/27/16 00:00 40 09/26/16 23:54 86 09/26/16 22:48 87 17 100 09/26/16 21:52 100 110/61 09/26/16 21:08 100 18 100 09/26/16 20:06 98.4 88 18 110/61 95 Mechanical Ventilator 40 09/26/16 20:00 40 09/26/16 19:06 101 21 100 09/26/16 19:04 102 09/26/16 17:25 101 19 100 09/26/16 16:36 96 09/26/16 16:00 98 09/26/16 16:00 97.5 96 19 104/60 96 Mechanical Ventilator 40 09/26/16 16:00 40 09/26/16 15:36 97 20 100 09/26/16 13:01 95 20 100 Height (Feet): 5 Height (Inches): 10.00 Weight (Pounds): 160 General Appearance: no acute distress HEENT: status post trach Respiratory/Chest: rhonchi - bilaterally, other - on ventilator Cardiovascular: normal rate Abdomen: soft, non tender, other - GT feeding Extremities: no edema, other - R arm PICC line Laboratory Tests Test 09/27/16 04:58 White Blood Count 12.2 K/UL (4.8-10.8) H Red Blood Count 3.02 M/UL (4.70-6.10) L Hemoglobin 9.4 G/DL (14.2-18.0) L Hematocrit 28.8 % (42.0-52.0) L Mean Corpuscular Volume 95 FL (80-99) Mean Corpuscular Hemoglobin 31.0 PG (27.0-31.0) Mean Corpuscular Hemoglobin Concent 32.6 G/DL (32.0-36.0) Red Cell Distribution Width 14.0 % (11.6-14.8) Platelet Count 729 K/UL (150-450) H Mean Platelet Volume 5.4 FL (6.5-10.1) L Neutrophils (%) (Auto) 77.3 % (45.0-75.0) H Lymphocytes (%) (Auto) 10.5 % (20.0-45.0) L Monocytes (%) (Auto) 5.3 % (1.0-10.0) Eosinophils (%) (Auto) 5.6 % (0.0-3.0) H Basophils (%) (Auto) 1.3 % (0.0-2.0) Sodium Level 138 mEQ/L (135-145) Potassium Level 4.5 mEQ/L (3.4-4.9) Chloride Level 92 mEQ/L (98-107) L Carbon Dioxide Level 32 mEQ/L (20-30) H Anion Gap 14 (5-15) Blood Urea Nitrogen 29 mg/dL (7-23) H Creatinine 0.6 mg/dL (0.7-1.2) L Estimat Glomerular Filtration Rate > 60 mL/min (>60) Glucose Level 331 mg/dL (74-106) H Calcium Level 9.8 mg/dL (8.6-10.2) Current Medications Medications (Trade) Dose Ordered Sig/Guillermo Route PRN Reason Start Time Stop Time Status Last Admin Dose Admin Acetaminophen (Tylenol) 650 mg Q6H PRN ORAL Mild Pain/Temp > 100.5 09/14/16 16:00 10/14/16 15:59 09/22/16 16:30 Acetaminophen/ Hydrocodone Bitart ([place] 5/325) 1 tab Q4H PRN ORAL Moderate Pain (Pain Scale 4-6) 09/25/16 07:30 10/02/16 07:29 09/25/16 12:00 Ascorbic Acid (Vitamin C) 500 mg DAILY GT 09/15/16 09:00 10/15/16 08:59 09/27/16 10:14 Bisacodyl (Dulcolax) 10 mg PRN PRN RECTAL Constipation 09/14/16 15:45 10/14/16 15:44 Carbamazepine (TEGretol) 400 mg TID GT 09/14/16 18:00 10/14/16 17:59 09/27/16 12:40 Collagenase (Santyl) 1 applic Q24HRS TOPIC 09/16/16 04:00 10/16/16 03:59 09/27/16 04:04 Dextrose (Dextrose 50%) STAT PRN IV Hypoglycemia 09/14/16 16:15 10/14/16 16:14 09/26/16 05:17 Docusate Sodium (Colace) 100 mg TWICE A DAY GT 09/14/16 18:00 10/14/16 17:59 09/27/16 10:15 Enoxaparin Sodium (Lovenox) 40 mg DAILY SUBQ 09/15/16 09:00 10/15/16 08:59 09/27/16 10:14 Epoetin Grabiel (Procrit (for non ESRD use)) 7,500 units WED-WED-WED SUBQ 09/25/16 21:00 10/25/16 20:59 09/25/16 22:17 Gemfibrozil (Lopid) 600 mg BID GT 09/14/16 18:00 10/14/16 17:59 09/27/16 10:14 Insulin Aspart (NovoLOG) Q6HR SUBQ 09/15/16 00:00 10/15/16 00:00 09/27/16 12:36 Insulin Detemir (Levemir) 15 units DAILY SUBQ 09/24/16 09:00 10/24/16 08:59 09/27/16 10:23 Insulin Detemir (Levemir) 35 units BEDTIME SUBQ 09/26/16 21:00 10/26/16 20:59 09/26/16 22:19 Lactulose (Cephulac) 20 gm DAILYPRN PRN ORAL Constipation 09/14/16 15:45 10/14/16 15:44 Levetiracetam (Keppra) 500 mg Q12HR NG 09/20/16 21:00 10/20/16 20:59 09/27/16 10:13 Magnesium Hydroxide (Mom) 30 ml DAILY PRN GT Constipation 09/14/16 15:45 10/14/16 15:44 Metoclopramide HCl (Reglan) 10 mg Q6H PRN GT Nausea & Vomiting 09/14/16 18:00 10/14/16 17:59 Metoprolol Tartrate (Lopressor) 100 mg EVERY 12 HOURS GT 09/14/16 21:00 10/14/16 20:59 09/27/16 10:14 Metronidazole (Flagyl) 500 mg Q8HR ORAL 09/25/16 11:00 10/02/16 10:59 09/27/16 05:36 Pantoprazole (Protonix) 40 mg DAILY IVP 09/15/16 09:00 10/15/16 08:59 09/27/16 10:15 Sodium Phosphate (Fleet's Sodium Phosl Enema) 133 ml DAILY PRN RECTAL Constipation 09/14/16 15:45 10/14/16 15:44 Valproic Acid (Depakene) 250 mg EVERY 12 HOURS NG 09/14/16 21:00 10/14/16 20:59 09/27/16 10:13 Zinc Sulfate (Zinc Sulfate) 220 mg DAILY GT 09/15/16 09:00 10/15/16 08:59 09/27/16 10:15 ADRIENNE FERRELL Sep 27, 2016 12:57
[2016-09-27 16:13] VITALS: BP 122/76
[2016-09-27 20:00] VITALS: BP 106/63
[2016-09-28] VITALS: BP 119/71
[2016-09-28] MEDS: NovoLOG Insulin Flexpen SUBQ SCH ×5 (00:04→23:47)
[2016-09-28 04:00] VITALS: BP 123/78
[2016-09-28] MEDS: metroNIDAZOLE 500mg tab ORAL SCH ×3 (05:39→22:28)
[2016-09-28 08:00] VITALS: BP 116/73
[2016-09-28] MEDS: Ascorbic Acid 500mg tab GT SCH (08:17)
[2016-09-28] MEDS: Zinc Sulfate 220mg cap GT SCH (08:17)
[2016-09-28] MEDS: Docusate 100mg tablet GT SCH ×2 (08:17→20:09)
[2016-09-28] MEDS: carBAMazepine 200mg tab GT SCH ×3 (08:18→20:08)
[2016-09-28] MEDS: Pantoprazole Inj IVP SCH (08:21)
[2016-09-28] MEDS: levETIRAcetam 500mg/5ml Liquid NG SCH ×2 (08:21→21:10)
[2016-09-28] MEDS: Valproic Acid 250mg/5ml Liquid NG SCH ×2 (08:21→21:09)
[2016-09-28] MEDS: Levemir Flexpen SUBQ SCH ×2 (08:24→21:00)
[2016-09-28] MEDS: Enoxaparin 40mg Inj SUBQ SCH (08:25)
--- NOTE | 2016-09-28 09:11 | General Progress Note ---
Assessment/Plan Assessment/Plan Respiratory failure tachycardia sepsis Bacteremia ALOC leukocytosis Anemia VRE proteus UTI PLAN ID noted care noted and reviewed guarded overall stable on flagyl follow up labs and hope to proceed with dc today dc planning to SNF impression, plan, and exam edited and reviewed in detail care discussed with RN Subjective Allergies: Coded Allergies: No Known Allergies (Unverified , 07/21/16) Subjective care noted minimally tachycardic wbc elevated dc on hold Objective Last 24 Hour Vital Signs Date Time Temp Pulse Resp B/P Pulse Ox O2 Delivery O2 Flow Rate FiO2 09/28/16 08:21 95 116/73 09/28/16 08:00 10.0 100 09/28/16 06:30 92 25 100 09/28/16 05:19 84 27 100 09/28/16 04:00 97.7 85 24 123/78 100 Mechanical Ventilator 100 09/28/16 04:00 10.0 60 09/28/16 03:47 85 09/28/16 02:45 92 14 100 09/28/16 01:23 85 25 100 09/28/16 00:00 97.2 87 18 119/71 93 Mechanical Ventilator 100 09/28/16 00:00 10.0 100 09/27/16 23:36 85 09/27/16 23:32 88 14 100 09/27/16 21:59 85 115/68 09/27/16 21:09 81 15 100 09/27/16 20:00 85 09/27/16 20:00 10.0 40 09/27/16 20:00 97.0 85 18 106/63 95 Mechanical Ventilator 40 09/27/16 19:28 84 17 100 09/27/16 16:45 88 17 100 09/27/16 16:13 98.5 99 18 122/76 98 Mechanical Ventilator 40 09/27/16 15:35 67 09/27/16 15:34 10.0 40 09/27/16 15:02 85 16 100 09/27/16 13:09 79 14 100 09/27/16 12:14 82 09/27/16 12:00 10.0 40 09/27/16 12:00 96.8 85 14 107/72 98 Mechanical Ventilator 40 09/27/16 10:52 87 15 100 09/27/16 10:14 93 109/70 09/27/16 09:13 93 17 100 Intake and Output 09/27/16 09/28/16 19:00 07:00 Intake Total 760 ml 860 ml Output Total 1725 ml 500 ml Balance -965 ml 360 ml Free Water 100 ml 200 ml Tube Feeding 660 ml 660 ml Output Urine Total 1725 ml 500 ml # Bowel Movements 2 1 Labs Test 09/27/16 04:58 White Blood Count 12.2 K/UL (4.8-10.8) Red Blood Count 3.02 M/UL (4.70-6.10) Hemoglobin 9.4 G/DL (14.2-18.0) Hematocrit 28.8 % (42.0-52.0) Mean Corpuscular Volume 95 FL (80-99) Mean Corpuscular Hemoglobin 31.0 PG (27.0-31.0) Mean Corpuscular Hemoglobin Concent 32.6 G/DL (32.0-36.0) Red Cell Distribution Width 14.0 % (11.6-14.8) Platelet Count 729 K/UL (150-450) Mean Platelet Volume 5.4 FL (6.5-10.1) Neutrophils (%) (Auto) 77.3 % (45.0-75.0) Lymphocytes (%) (Auto) 10.5 % (20.0-45.0) Monocytes (%) (Auto) 5.3 % (1.0-10.0) Eosinophils (%) (Auto) 5.6 % (0.0-3.0) Basophils (%) (Auto) 1.3 % (0.0-2.0) Sodium Level 138 mEQ/L (135-145) Potassium Level 4.5 mEQ/L (3.4-4.9) Chloride Level 92 mEQ/L (98-107) Carbon Dioxide Level 32 mEQ/L (20-30) Anion Gap 14 (5-15) Blood Urea Nitrogen 29 mg/dL (7-23) Creatinine 0.6 mg/dL (0.7-1.2) Estimat Glomerular Filtration Rate > 60 mL/min (>60) Glucose Level 331 mg/dL (74-106) Calcium Level 9.8 mg/dL (8.6-10.2) Height (Feet): 5 Height (Inches): 10.00 Weight (Pounds): 160 Objective WDWN NAD stable breath sounds bilaterally without rhonchi or wheeze [id number] without MRG NABS nontender no HSM; GT no CCE nonfocal poor LOC and withdrawn LAURA ROSENBAUM Sep 28, 2016 09:11
[2016-09-28 09:36] LABS: ABG BASE EXCESS 3.4; ABG PCO2 40.8 mmHg (35.0-45.0)
[2016-09-28 09:37] LABS: ABG ALLEN TEST POSITIVE
--- NOTE | 2016-09-28 09:39 | Infectious Diseases Prog Note ---
Assessment/Plan Assessment/Plan A: [facility] sepsis s/p Rx Leukocytosis improving Pneumonia s/p Rx Multiple pressure ulcers VDRF Hypoglycemia Elevated transaminase Persistent vegetative state Anemia VRE colonization P: continue Flagyl Remove PICC line before discharge Subjective ROS Limited/Unobtainable: Yes Allergies: Coded Allergies: No Known Allergies (Unverified , 07/21/16) Objective Vital Signs Last 24 Hour Vital Signs Date Time Temp Pulse Resp B/P Pulse Ox O2 Delivery O2 Flow Rate FiO2 09/28/16 08:30 82 35 80 09/28/16 08:21 95 116/73 09/28/16 08:00 10.0 100 09/28/16 08:00 97.9 93 31 116/73 100 Mechanical Ventilator 100 09/28/16 06:30 92 25 100 09/28/16 05:19 84 27 100 09/28/16 04:00 97.7 85 24 123/78 100 Mechanical Ventilator 100 09/28/16 04:00 10.0 60 09/28/16 03:47 85 09/28/16 02:45 92 14 100 09/28/16 01:23 85 25 100 09/28/16 00:00 97.2 87 18 119/71 93 Mechanical Ventilator 100 09/28/16 00:00 10.0 100 09/27/16 23:36 85 09/27/16 23:32 88 14 100 09/27/16 21:59 85 115/68 09/27/16 21:09 81 15 100 09/27/16 20:00 85 09/27/16 20:00 10.0 40 09/27/16 20:00 97.0 85 18 106/63 95 Mechanical Ventilator 40 09/27/16 19:28 84 17 100 09/27/16 16:45 88 17 100 09/27/16 16:13 98.5 99 18 122/76 98 Mechanical Ventilator 40 09/27/16 15:35 67 09/27/16 15:34 10.0 40 09/27/16 15:02 85 16 100 09/27/16 13:09 79 14 100 09/27/16 12:14 82 09/27/16 12:00 10.0 40 09/27/16 12:00 96.8 85 14 107/72 98 Mechanical Ventilator 40 09/27/16 10:52 87 15 100 2/26/17 10:14 93 109/70 Height (Feet): 5 Height (Inches): 10.00 Weight (Pounds): 160 General Appearance: no acute distress HEENT: status post trach Respiratory/Chest: lungs clear, other - on ventilator Cardiovascular: normal rate Abdomen: soft, non tender, other - GT feeding Extremities: no edema, other - R arm PICC line Skin: ulcers Neurologic/Psychiatric: other - awake Laboratory Tests Test 09/28/16 09:26 Arterial Blood pH 7.449 (7.350-7.450) Arterial Blood Partial Pressure CO2 40.8 mmHg (35.0-45.0) Arterial Blood Partial Pressure O2 111.9 mmHg (75.0-100.0) H Arterial Blood HCO3 27.7 mmol/L (22.0-26.0) H Arterial Blood Oxygen Saturation 98.1 % (92.0-98.0) H Arterial Blood Base Excess 3.4 Dewey Test Positive Current Medications Medications (Trade) Dose Ordered Sig/Guillermo Route PRN Reason Start Time Stop Time Status Last Admin Dose Admin Acetaminophen (Tylenol) 650 mg Q6H PRN ORAL Mild Pain/Temp > 100.5 09/14/16 16:00 10/14/16 15:59 09/22/16 16:30 Acetaminophen/ Hydrocodone Bitart ([place] 5/325) 1 tab Q4H PRN ORAL Moderate Pain (Pain Scale 4-6) 09/25/16 07:30 10/02/16 07:29 09/25/16 12:00 Ascorbic Acid (Vitamin C) 500 mg DAILY GT 09/15/16 09:00 10/15/16 08:59 09/28/16 08:17 Bisacodyl (Dulcolax) 10 mg PRN PRN RECTAL Constipation 09/14/16 15:45 10/14/16 15:44 Carbamazepine (TEGretol) 400 mg TID GT 09/14/16 18:00 10/14/16 17:59 09/28/16 08:18 Collagenase (Santyl) 1 applic Q24HRS TOPIC 09/16/16 04:00 10/16/16 03:59 09/28/16 03:32 Dextrose (Dextrose 50%) STAT PRN IV Hypoglycemia 09/14/16 16:15 10/14/16 16:14 09/26/16 05:17 Docusate Sodium (Colace) 100 mg TWICE A DAY GT 09/14/16 18:00 10/14/16 17:59 09/28/16 08:17 Enoxaparin Sodium (Lovenox) 40 mg DAILY SUBQ 09/15/16 09:00 10/15/16 08:59 09/28/16 08:25 Epoetin Grabiel (Procrit (for non ESRD use)) 7,500 units WED-WED-WED SUBQ 09/25/16 21:00 10/25/16 20:59 09/25/16 22:17 Gemfibrozil (Lopid) 600 mg BID GT 09/14/16 18:00 10/14/16 17:59 09/28/16 08:17 Insulin Aspart (NovoLOG) Q6HR SUBQ 09/15/16 00:00 10/15/16 00:00 09/28/16 05:40 Insulin Detemir (Levemir) 15 units DAILY SUBQ 09/24/16 09:00 10/24/16 08:59 09/28/16 08:24 Insulin Detemir (Levemir) 35 units BEDTIME SUBQ 09/26/16 21:00 10/26/16 20:59 09/27/16 22:01 Lactulose (Cephulac) 20 gm DAILYPRN PRN ORAL Constipation 09/14/16 15:45 10/14/16 15:44 Levetiracetam (Keppra) 500 mg Q12HR NG 09/20/16 21:00 10/20/16 20:59 09/28/16 08:21 Magnesium Hydroxide (Mom) 30 ml DAILY PRN GT Constipation 09/14/16 15:45 10/14/16 15:44 Metoclopramide HCl (Reglan) 10 mg Q6H PRN GT Nausea & Vomiting 09/14/16 18:00 10/14/16 17:59 Metoprolol Tartrate (Lopressor) 100 mg EVERY 12 HOURS GT 09/14/16 21:00 10/14/16 20:59 09/28/16 08:21 Metronidazole (Flagyl) 500 mg Q8HR ORAL 09/25/16 11:00 10/02/16 10:59 09/28/16 05:39 Pantoprazole (Protonix) 40 mg DAILY IVP 09/15/16 09:00 10/15/16 08:59 09/28/16 08:21 Sodium Phosphate (Fleet's Sodium Phosl Enema) 133 ml DAILY PRN RECTAL Constipation 09/14/16 15:45 10/14/16 15:44 Valproic Acid (Depakene) 250 mg EVERY 12 HOURS NG 09/14/16 21:00 10/14/16 20:59 09/28/16 08:21 Zinc Sulfate (Zinc Sulfate) 220 mg DAILY GT 09/15/16 09:00 10/15/16 08:59 09/28/16 08:17 ADRIENNE FERRELL Sep 28, 2016 09:39
[2016-09-28] MEDS ORDERED: NS 275ml ONE (10:53)
[2016-09-28 12:00] VITALS: BP 116/72
[2016-09-28] MEDS: Norco 5mg/325mg tab ORAL PRN (13:03)
--- NOTE | 2016-09-28 15:12 | Diagnostic Imaging Report ---
Indications: Shortness of breath Technique: Portable AP chest Findings: Comparison: 09/24/16 Left lung volume remains decreased compared to right. Mild bibasilar interstitial nodularity persists. Linear opacities developed in the left lung base. Cardiac mediastinal silhouette stable. No pleural abnormality. Lines and tubes remain in place. IMPRESSION: Lung subsegmental atelectasis left lung base Stable bilateral interstitial nodularity, nonspecific, likely chronic No other change
[2016-09-28 16:00] VITALS: BP 109/100
[2016-09-28 20:00] VITALS: BP 151/75
[2016-09-28] MEDS: Epogen (for non ESRD use) SUBQ SCH (21:10)
[2016-09-29] VITALS: BP 113/69
[2016-09-29 04:00] VITALS: BP 109/68
[2016-09-29] MEDS: metroNIDAZOLE 500mg tab ORAL SCH (05:58)
[2016-09-29] MEDS: NovoLOG Insulin Flexpen SUBQ SCH ×3 (05:59→18:41)
[2016-09-29 08:00] VITALS: BP 117/70
--- NOTE | 2016-09-29 08:12 | General Progress Note ---
Assessment/Plan Assessment/Plan Respiratory failure tachycardia sepsis Bacteremia ALOC leukocytosis Anemia VRE proteus UTI PLAN ID noted care noted and reviewed guarded overall stable on flagyl taper fio2 assess oxygen saturations follow up labs and hope to proceed with dc today dc planning to SNF once improved impression, plan, and exam edited and reviewed in detail care discussed with RN Subjective ROS Limited/Unobtainable: Yes Allergies: Coded Allergies: No Known Allergies (Unverified , 07/21/16) Subjective care noted minimally tachycardic wbc elevated oxygen needs high dc on hold Objective Last 24 Hour Vital Signs Date Time Temp Pulse Resp B/P Pulse Ox O2 Delivery O2 Flow Rate FiO2 09/29/16 04:53 97 23 80 09/29/16 04:00 99.0 98 20 109/68 Mechanical Ventilator 10.0 80 09/29/16 04:00 10.0 80 09/29/16 03:41 100 09/29/16 03:24 101 27 80 09/29/16 01:09 94 23 80 09/29/16 00:00 87 09/29/16 00:00 10.0 80 09/29/16 00:00 98.0 90 14 113/69 100 Mechanical Ventilator 80 09/28/16 23:30 89 23 80 09/28/16 21:30 84 21 80 09/28/16 21:09 100 109/100 09/28/16 20:00 10.0 80 09/28/16 20:00 102 09/28/16 20:00 97.7 110 14 151/75 100 Room Air 09/28/16 19:30 100 26 80 09/28/16 16:40 115 25 80 09/28/16 16:00 126 09/28/16 16:00 97.5 126 14 109/100 100 09/28/16 16:00 10.0 80 09/28/16 15:00 124 30 80 09/28/16 14:00 98.2 09/28/16 12:50 125 34 80 09/28/16 12:00 98.2 108 38 116/72 96 Mechanical Ventilator 80 09/28/16 12:00 10.0 80 09/28/16 12:00 108 09/28/16 11:00 96 33 80 09/28/16 09:40 70 09/28/16 08:30 82 35 80 09/28/16 08:21 95 116/73 Intake and Output 09/28/16 09/29/16 19:00 07:00 Intake Total 940 ml 825 ml Output Total 525 ml 1750 ml Balance 415 ml -925 ml Free Water 100 ml 100 ml Tube Feeding 660 ml 605 ml Other 180 ml 120 ml Output Urine Total 525 ml 1750 ml # Bowel Movements 2 Laboratory Tests 09/28/16 09:26: Arterial Blood pH 7.449, Arterial Blood Partial Pressure CO2 40.8, Arterial Blood Partial Pressure O2 111.9H, Arterial Blood HCO3 27.7H, Arterial Blood Oxygen Saturation 98.1H, Arterial Blood Base Excess 3.4, Dewey Test Positive 09/28/16 19:00: Glucose Level 29*L Height (Feet): 5 Height (Inches): 10.00 Weight (Pounds): 160 Objective WDWN NAD stable breath sounds bilaterally without rhonchi or wheeze [id number] without MRG NABS nontender no HSM; GT no CCE nonfocal poor LOC and withdrawn LAURA ROSENBAUM Sep 29, 2016 08:12
[2016-09-29] MEDS: Levemir Flexpen SUBQ SCH ×2 (09:00→21:00)
[2016-09-29] MEDS: Ascorbic Acid 500mg tab GT SCH (09:01)
[2016-09-29] MEDS: Valproic Acid 250mg/5ml Liquid NG SCH ×2 (09:01→20:57)
[2016-09-29] MEDS: carBAMazepine 200mg tab GT SCH ×3 (09:02→18:39)
[2016-09-29] MEDS: levETIRAcetam 500mg/5ml Liquid NG SCH ×2 (09:02→20:58)
[2016-09-29] MEDS: Docusate 100mg tablet GT SCH ×2 (09:02→18:39)
[2016-09-29] MEDS: Pantoprazole Inj IVP SCH (09:02)
[2016-09-29] MEDS: Enoxaparin 40mg Inj SUBQ SCH (09:03)
[2016-09-29] MEDS: Zinc Sulfate 220mg cap GT SCH (09:04)
[2016-09-29 09:41] LABS: MEAN CORPUSCULAR HEMOGLOBIN 30.5 PG (27.0-31.0); MEAN CORPUSCULAR VOLUME 95 FL (80-99); MEAN PLATELET VOLUME 5.5 FL (6.5-10.1); PLATELET COUNT 751 K/UL (150-450); RED BLOOD COUNT 3.14 M/UL (4.70-6.10); RED CELL DISTRIBUTION WIDTH 14.6 % (11.6-14.8); WHITE BLOOD COUNT 18.5 K/UL (4.8-10.8)
[2016-09-29 10:09] LABS: BAND NEUTROPHILS % (MANUAL) 3 % (0-8); BASOPHILS % (MANUAL) 0 % (0-2); EOSINOPHILS % (MANUAL) 0 % (0-3); LYMPHOCYTES % (MANUAL) 7 % (20-45); NEUTROPHILS % (MANUAL) 88 % (45-75); PLATELET ESTIMATE INCREASED; PLATELET MORPHOLOGY NORMAL; TOTAL CELLS COUNTED 100
[2016-09-29 10:11] LABS: STOMATOCYTES OCCASIONAL
--- NOTE | 2016-09-29 11:59 | Infectious Diseases Prog Note ---
"Assessment/Plan Assessment/Plan antibiotics : flagyl A 1. klebsiella sepsis 2. acenitobacter | klebsiella | providencia pneumonia 3. proteus UTI 4. rectal VRE colonization 5. leucocytosis increasing P 1. d/c flagyl 2. start po vancomycin 3. urine cultures 4. blood cultures 5. sputum culture 6. will follow up cultures Subjective ROS Limited/Unobtainable: Yes Allergies: Coded Allergies: No Known Allergies (Unverified , 07/21/16) Objective Vital Signs Last 24 Hour Vital Signs Date Time Temp Pulse Resp B/P Pulse Ox O2 Delivery O2 Flow Rate FiO2 09/29/16 11:29 92 14 50 09/29/16 09:04 107 117/70 09/29/16 08:41 100 23 50 09/29/16 08:00 10.0 80 09/29/16 08:00 89 09/29/16 08:00 97.9 103 23 117/70 99 Mechanical Ventilator 50 09/29/16 04:53 97 23 80 09/29/16 04:00 99.0 98 20 109/68 Mechanical Ventilator 10.0 80 09/29/16 04:00 10.0 80 09/29/16 03:41 100 09/29/16 03:24 101 27 80 09/29/16 01:09 94 23 80 09/29/16 00:00 87 09/29/16 00:00 10.0 80 09/29/16 00:00 98.0 90 14 113/69 100 Mechanical Ventilator 80 09/28/16 23:30 89 23 80 09/28/16 21:30 84 21 80 09/28/16 21:09 100 109/100 09/28/16 20:00 10.0 80 09/28/16 20:00 102 09/28/16 20:00 97.7 110 14 151/75 100 Room Air 09/28/16 19:30 100 26 80 09/28/16 16:40 115 25 80 09/28/16 16:00 126 09/28/16 16:00 97.5 126 14 109/100 100 09/28/16 16:00 10.0 80 09/28/16 15:00 124 30 80 09/28/16 14:00 98.2 09/28/16 12:50 125 34 80 09/28/16 12:00 98.2 108 38 116/72 96 Mechanical Ventilator 80 09/28/16 12:00 10.0 80 09/28/16 12:00 108 Height (Feet): 5 Height (Inches): 10.00 Weight (Pounds): 160 HEENT: status post trach Respiratory/Chest: lungs clear Cardiovascular: normal rate, regular rhythm, no gallop/murmur Abdomen: soft, non tender, other - GT Extremities: no edema, other - right arm PICC Microbiology Date/Time Source Procedure Growth Status 09/28/16 03:30 Stool Clostridium difficile Toxin Assay - Final Complete Laboratory Tests Test 09/28/16 19:00 09/29/16 08:55 Glucose Level 29 mg/dL (74-106) *L White Blood Count 18.5 K/UL (4.8-10.8) H Red Blood Count 3.14 M/UL (4.70-6.10) L Hemoglobin 9.6 G/DL (14.2-18.0) L Hematocrit 30.0 % (42.0-52.0) L Mean Corpuscular Volume 95 FL (80-99) Mean Corpuscular Hemoglobin 30.5 PG (27.0-31.0) Mean Corpuscular Hemoglobin Concent 32.0 G/DL (32.0-36.0) Red Cell Distribution Width 14.6 % (11.6-14.8) Platelet Count 751 K/UL (150-450) H Mean Platelet Volume 5.5 FL (6.5-10.1) L Neutrophils (%) (Auto) % (45.0-75.0) Lymphocytes (%) (Auto) % (20.0-45.0) Monocytes (%) (Auto) % (1.0-10.0) Eosinophils (%) (Auto) % (0.0-3.0) Basophils (%) (Auto) % (0.0-2.0) Differential Total Cells Counted 100 Neutrophils % (Manual) 88 % (45-75) H Lymphocytes % (Manual) 7 % (20-45) L Monocytes % (Manual) 2 % (1-10) Eosinophils % (Manual) 0 % (0-3) Basophils % (Manual) 0 % (0-2) Band Neutrophils 3 % (0-8) Platelet Estimate Increased H Platelet Morphology Normal Red Blood Cell Morphology Normal Stomatocytes Occasional ISABEL,SHAKUNTALA Sep 29, 2016 11:59"
[2016-09-29 12:00] VITALS: BP 109/68
[2016-09-29 13:31] LABS: APPEARANCE,URINE SLIGHTLY CLOUDY; KETONES,URINE NEGATIVE (NEGATIVE); LEUKOCYTE ESTERASE ,URINE 3+ (NEGATIVE); NITRITE,URINE NEGATIVE (NEGATIVE); PH,URINE 9 (4.5-8.0); PROTEIN,URINE 1+ (NEGATIVE); UROBILINOGEN,URINE 1 MG/DL (0.0-1.0)
[2016-09-29 13:50] LABS: RBC,URINE 0-2 /HPF (0 - 0); SQUAMOUS EPITHELIAL CELL,UR OCCASIONAL /LPF (NONE/OCC)
[2016-09-29 13:51] LABS: AMORPHOUS SEDIMENT,UR FEW /LPF; BACTERIA,URINE FEW /HPF; TRIPLE PHOSPHATE CRYSTAL,UR FEW /LPF
[2016-09-29] MEDS: Vancomycin oral 125mg/2.5ml ORAL SCH ×3 (14:38→20:57)
[2016-09-29 16:00] VITALS: BP 135/88
[2016-09-29 20:00] VITALS: BP 120/79
[2016-09-30] VITALS: BP 104/70
[2016-09-30] MEDS: NovoLOG Insulin Flexpen SUBQ SCH ×5 (01:05→23:32)
--- NOTE | 2016-09-30 03:08 | Progress Note ---
DATE: 09/28/2016 CARDIOLOGY PROGRESS NOTE: OBJECTIVE: VITAL SIGNS: Afebrile, blood pressure 116/73, heart rate 95, and respiratory rate 25. Ventilator support. HEENT: Thin trach secretions. LUNGS: Bilateral breath sounds. HEART: Regular rhythm and rate. Normal S1, S2. ABDOMEN: Soft. EXTREMITIES: No edema. : Non vegetative state. LABORATORY DATA: Labs noted. IMPRESSION: 1. Sepsis 2. Bacteremia. 3. Clostridium difficile. 4. Anemia. 5. Autonomic dysfunction. 6. Ventilator-dependent respiratory failure. 7. Multiple contributing to secondary sinus tachycardia. PLAN: Beta-meño with taper based on clinical parameters. Antimicrobials. Protein supplement by feeding tube. Ventilator support. Avoid beta agonist. Transfuse for hemoglobin below 8 g. Vitamin supplementation. Jl Mann M.D. DR: Esvin JOB#: [id number] CC:
--- NOTE | 2016-09-30 03:08 | Progress Note ---
DATE: 09/29/2016 CARDIOLOGY PROGRESS NOTE SUBJECTIVE: The patient without significant change. Remains on ventilator support. Monitored rhythm sinus, rare sinus tachycardia. OBJECTIVE: VITAL SIGNS: Blood pressure 109/68, heart rate 98, and respiratory rate 20. NECK: Thin trach secretions. LUNGS: Bilateral breath sounds. HEART: Regular rhythm and rate. Normal S1 and S2. No new murmur. ABDOMEN: Soft. No edema. LABORATORY DATA: Labs noted. Hemodynamically stable. Antimicrobial therapy per Infectious Disease information consultant. Titrate beta-meño based on clinical parameters. Stable from cardiovascular standpoint for transfer to subacute facility. Jl Mann M.D. DR: RHYS JOB#: [id number] CC:
[2016-09-30 04:00] VITALS: BP 108/70
--- NOTE | 2016-09-30 04:48 | Progress Note ---
DATE: 09/27/2016 CARDIOLOGY PROGRESS NOTE: SUBJECTIVE: The patient remains on ventilator support, comatose. OBJECTIVE: VITAL SIGNS: Blood pressure 109/70, heart rate is in the 82 to 105 range, monitored sinus and sinus tachycardia. NECK: Trach with thin secretions. LUNGS: Bilateral breath sounds with few rhonchi. HEART: Regular rhythm and rate. Normal S1, S2. No new murmur. EXTREMITIES: No edema. IMPRESSION: 1. Secondary sinus tachycardia. 2. KPC sepsis. 3. Clostridium difficile colitis. 4. Ventilator-dependent respiratory failure. 5. Autonomic dysfunction. 6. Anemia. 7. Human Immunodeficiency Virus. 8. Acquired immunodeficiency syndrome. PLAN: Antimicrobials ventilator support. Maintain adequate hydration. Protein supplementation transfuse for hemoglobin less than 8 g. Titrate beta-meño based on clinical parameters. Jl Mann M.D. DR: Piper JOB#: [id number] CC:
[2016-09-30 08:00] VITALS: BP_SYST 108; BP_SYST 111; BP_DIAS 68; BP_DIAS 70
[2016-09-30] MEDS: Pantoprazole Inj IVP SCH (08:32)
[2016-09-30] MEDS: Enoxaparin 40mg Inj SUBQ SCH (08:34)
[2016-09-30] MEDS: Levemir Flexpen SUBQ SCH (08:35)
[2016-09-30] MEDS: Vancomycin oral 125mg/2.5ml ORAL SCH ×2 (08:36→12:20)
[2016-09-30] MEDS: carBAMazepine 200mg tab GT SCH ×3 (08:36→17:03)
[2016-09-30] MEDS: Valproic Acid 250mg/5ml Liquid NG SCH ×2 (08:36→22:15)
[2016-09-30] MEDS: levETIRAcetam 500mg/5ml Liquid NG SCH ×2 (08:36→22:16)
[2016-09-30] MEDS: Zinc Sulfate 220mg cap GT SCH (08:36)
[2016-09-30] MEDS: Ascorbic Acid 500mg tab GT SCH (08:36)
[2016-09-30] MEDS: Docusate 100mg tablet GT SCH ×2 (08:37→17:03)
--- NOTE | 2016-09-30 09:36 | General Progress Note ---
Assessment/Plan Assessment/Plan Respiratory failure tachycardia sepsis Bacteremia ALOC leukocytosis Anemia VRE proteus UTI PLAN ID noted care noted and reviewed guarded overall stable on flagyl taper fio2; now down to 50% assess oxygen saturations follow up labs and hope to proceed with dc today if wbc better dc planning to SNF today or in am impression, plan, and exam edited and reviewed in detail care discussed with RN Subjective ROS Limited/Unobtainable: Yes Allergies: Coded Allergies: No Known Allergies (Unverified , 07/21/16) Subjective care noted no longer tachycardic wbc elevated; repeat pending oxygen needs high dc on hold Objective Last 24 Hour Vital Signs Date Time Temp Pulse Resp B/P Pulse Ox O2 Delivery O2 Flow Rate FiO2 09/30/16 08:37 97 111/70 09/30/16 08:00 98.4 96 20 111/70 100 Mechanical Ventilator 50 09/30/16 08:00 97.9 91 17 108/68 100 Mechanical Ventilator 45 09/30/16 06:44 97 20 50 09/30/16 05:30 96 18 50 09/30/16 04:00 98.7 97 19 108/70 100 Mechanical Ventilator 50 09/30/16 04:00 50 09/30/16 03:48 92 09/30/16 03:14 94 16 50 09/30/16 02:39 95 09/30/16 01:30 91 15 50 09/30/16 00:00 99.0 92 18 104/70 100 Mechanical Ventilator 50 09/30/16 00:00 50 09/29/16 23:30 93 18 50 09/29/16 21:30 92 20 50 09/29/16 20:57 114 120/79 09/29/16 20:00 112 09/29/16 20:00 98.9 114 28 120/79 97 Mechanical Ventilator 50 09/29/16 20:00 50 09/29/16 19:23 113 22 Mechanical Ventilator 50 09/29/16 19:19 112 22 50 09/29/16 17:00 104 18 50 09/29/16 16:14 50 09/29/16 16:00 98.1 111 28 135/88 100 Mechanical Ventilator 50 09/29/16 16:00 105 09/29/16 15:20 99 20 50 09/29/16 13:15 100 18 50 09/29/16 12:02 10.0 80 09/29/16 12:00 97.4 87 21 109/68 99 Mechanical Ventilator 50 09/29/16 12:00 87 09/29/16 11:29 92 14 50 Intake and Output 09/29/16 09/30/16 19:00 07:00 Intake Total 535 ml 815 ml Output Total 950 ml 1800 ml Balance -415 ml -985 ml Free Water 200 ml 150 ml Tube Feeding 275 ml 605 ml Other 60 ml 60 ml Output Urine Total 950 ml 1800 ml # Bowel Movements 1 Laboratory Tests 09/29/16 12:00: Urine Color Yellow, Urine Appearance Slightly cloudy, Urine pH 9, Urine Specific [place] 1.015, Urine Protein 1+H, Urine Glucose (UA) Negative, Urine Ketones Negative, Urine Occult Blood Negative, Urine Nitrite Negative, Urine Bilirubin Negative, Urine Urobilinogen 1H, Urine Leukocyte Esterase 3+H, Urine RBC 0-2H, Urine WBC 10-15H, Urine Squamous Epithelial Cells Occasional, Urine Triple Phosphate Crystals FewH, Urine Amorphous Sediment FewH, Urine Bacteria Few Height (Feet): 5 Height (Inches): 10.00 Weight (Pounds): 160 Objective WDWN NAD stable breath sounds bilaterally without rhonchi or wheeze [id number] without MRG NABS nontender no HSM; GT no CCE nonfocal poor LOC and withdrawn LAURA ROSENBAUM Sep 30, 2016 09:36
[2016-09-30 11:16] LABS: BASOPHILS % (AUTO) 2.4 % (0.0-2.0); EOSINOPHILS % (AUTO) 6.8 % (0.0-3.0); LYMPHOCYTES % (AUTO) 10.3 % (20.0-45.0); MEAN CORPUSCULAR HEMOGLOBIN 30.8 PG (27.0-31.0); MEAN CORPUSCULAR HGB CONC 32.8 G/DL (32.0-36.0); MEAN CORPUSCULAR VOLUME 94 FL (80-99); MEAN PLATELET VOLUME 5.5 FL (6.5-10.1); MONOCYTES % (AUTO) 4.5 % (1.0-10.0); PLATELET COUNT 738 K/UL (150-450); RED BLOOD COUNT 3.12 M/UL (4.70-6.10); RED CELL DISTRIBUTION WIDTH 14.5 % (11.6-14.8); WHITE BLOOD COUNT 12.2 K/UL (4.8-10.8)
[2016-09-30 12:00] VITALS: BP 99/62
--- NOTE | 2016-09-30 14:07 | Infectious Diseases Prog Note ---
Assessment/Plan Assessment/Plan A: [facility] sepsis s/p Rx Leukocytosis improving Pneumonia s/p Rx Multiple pressure ulcers VDRF Hypoglycemia Elevated transaminase Persistent vegetative state Anemia VRE colonization P: discontinue Vancomycin Remove PICC line before discharge Subjective ROS Limited/Unobtainable: Yes Gastrointestinal/Abdominal: Reports: other - no diarrhea Allergies: Coded Allergies: No Known Allergies (Unverified , 07/21/16) Objective Vital Signs Last 24 Hour Vital Signs Date Time Temp Pulse Resp B/P Pulse Ox O2 Delivery O2 Flow Rate FiO2 09/30/16 12:56 86 16 50 09/30/16 12:00 94 09/30/16 12:00 97.9 88 16 99/62 100 Mechanical Ventilator 45 09/30/16 12:00 45 09/30/16 11:55 85 16 50 09/30/16 09:50 84 20 50 09/30/16 08:37 97 111/70 09/30/16 08:00 92 09/30/16 08:00 50 09/30/16 08:00 98.4 96 20 111/70 100 Mechanical Ventilator 50 09/30/16 08:00 97.9 91 17 108/68 100 Mechanical Ventilator 45 09/30/16 06:44 97 20 50 09/30/16 05:30 96 18 50 09/30/16 04:00 98.7 97 19 108/70 100 Mechanical Ventilator 50 09/30/16 04:00 50 09/30/16 03:48 92 09/30/16 03:14 94 16 50 09/30/16 02:39 95 09/30/16 01:30 91 15 50 09/30/16 00:00 99.0 92 18 104/70 100 Mechanical Ventilator 50 09/30/16 00:00 50 09/29/16 23:30 93 18 50 09/29/16 21:30 92 20 50 09/29/16 20:57 114 120/79 09/29/16 20:00 112 09/29/16 20:00 98.9 114 28 120/79 97 Mechanical Ventilator 50 09/29/16 20:00 50 09/29/16 19:23 113 22 Mechanical Ventilator 50 09/29/16 19:19 112 22 50 09/29/16 17:00 104 18 50 09/29/16 16:14 50 09/29/16 16:00 98.1 111 28 135/88 100 Mechanical Ventilator 50 09/29/16 16:00 105 09/29/16 15:20 99 20 50 Height (Feet): 5 Height (Inches): 10.00 Weight (Pounds): 160 General Appearance: no acute distress HEENT: status post trach Respiratory/Chest: rhonchi - bilaterally, other - on ventilator Abdomen: soft, non tender, other - GT feeding Extremities: no edema Skin: ulcers Neurologic/Psychiatric: other Microbiology Date/Time Source Procedure Growth Status 09/29/16 22:30 Sputum Gram Stain - Final Resulted 09/29/16 22:30 Sputum Sputum Culture Pending Resulted 09/28/16 03:30 Stool Clostridium difficile Toxin Assay - Final Complete 09/29/16 12:00 Urine,Clean Catch Urine Culture - Preliminary Gram Negative Bacillus 1 Resulted Laboratory Tests Test 09/30/16 09:35 White Blood Count 12.2 K/UL (4.8-10.8) H Red Blood Count 3.12 M/UL (4.70-6.10) L Hemoglobin 9.6 G/DL (14.2-18.0) L Hematocrit 29.4 % (42.0-52.0) L Mean Corpuscular Volume 94 FL (80-99) Mean Corpuscular Hemoglobin 30.8 PG (27.0-31.0) Mean Corpuscular Hemoglobin Concent 32.8 G/DL (32.0-36.0) Red Cell Distribution Width 14.5 % (11.6-14.8) Platelet Count 738 K/UL (150-450) H Mean Platelet Volume 5.5 FL (6.5-10.1) L Neutrophils (%) (Auto) 76.0 % (45.0-75.0) H Lymphocytes (%) (Auto) 10.3 % (20.0-45.0) L Monocytes (%) (Auto) 4.5 % (1.0-10.0) Eosinophils (%) (Auto) 6.8 % (0.0-3.0) H Basophils (%) (Auto) 2.4 % (0.0-2.0) H Current Medications Medications (Trade) Dose Ordered Sig/Guillermo Route PRN Reason Start Time Stop Time Status Last Admin Dose Admin Acetaminophen (Tylenol) 650 mg Q6H PRN ORAL Mild Pain/Temp > 100.5 09/14/16 16:00 10/14/16 15:59 09/22/16 16:30 Acetaminophen/ Hydrocodone Bitart ([place] 5/325) 1 tab Q4H PRN ORAL Moderate Pain (Pain Scale 4-6) 09/25/16 07:30 10/02/16 07:29 09/28/16 13:03 Ascorbic Acid (Vitamin C) 500 mg DAILY GT 09/15/16 09:00 10/15/16 08:59 09/30/16 08:36 Bisacodyl (Dulcolax) 10 mg PRN PRN RECTAL Constipation 09/14/16 15:45 10/14/16 15:44 Carbamazepine (TEGretol) 400 mg TID GT 09/14/16 18:00 10/14/16 17:59 09/30/16 12:20 Collagenase (Santyl) 1 applic Q24HRS TOPIC 09/16/16 04:00 10/16/16 03:59 09/30/16 04:00 Dextrose (Dextrose 50%) STAT PRN IV Hypoglycemia 09/14/16 16:15 10/14/16 16:14 09/28/16 23:43 Docusate Sodium (Colace) 100 mg TWICE A DAY GT 09/14/16 18:00 10/14/16 17:59 09/30/16 08:37 Enoxaparin Sodium (Lovenox) 40 mg DAILY SUBQ 09/15/16 09:00 10/15/16 08:59 09/30/16 08:34 Epoetin Grabiel (Procrit (for non ESRD use)) 7,500 units WED-WED-WED SUBQ 09/25/16 21:00 10/25/16 20:59 09/28/16 21:10 Gemfibrozil (Lopid) 600 mg BID GT 09/14/16 18:00 10/14/16 17:59 09/30/16 08:36 Insulin Aspart (NovoLOG) Q6HR SUBQ 09/15/16 00:00 10/15/16 00:00 09/30/16 06:36 Insulin Detemir (Levemir) 10 units DAILY SUBQ 09/29/16 09:00 10/29/16 08:59 09/30/16 08:35 Insulin Detemir (Levemir) 20 units BEDTIME SUBQ 09/30/16 21:00 10/30/16 20:59 Lactulose (Cephulac) 20 gm DAILYPRN PRN ORAL Constipation 09/14/16 15:45 10/14/16 15:44 Levetiracetam (Keppra) 500 mg Q12HR NG 09/20/16 21:00 10/20/16 20:59 09/30/16 08:36 Magnesium Hydroxide (Mom) 30 ml DAILY PRN GT Constipation 09/14/16 15:45 10/14/16 15:44 Metoclopramide HCl (Reglan) 10 mg Q6H PRN GT Nausea & Vomiting 09/14/16 18:00 10/14/16 17:59 Metoprolol Tartrate (Lopressor) 100 mg EVERY 12 HOURS GT 09/14/16 21:00 10/14/16 20:59 09/30/16 08:37 Pantoprazole (Protonix) 40 mg DAILY IVP 09/15/16 09:00 10/15/16 08:59 09/30/16 08:32 Sodium Phosphate (Fleet's Sodium Phosl Enema) 133 ml DAILY PRN RECTAL Constipation 09/14/16 15:45 10/14/16 15:44 Valproic Acid (Depakene) 250 mg EVERY 12 HOURS NG 09/14/16 21:00 10/14/16 20:59 09/30/16 08:36 Vancomycin HCl (Vancomycin) 125 mg FOUR TIMES A DAY ORAL 09/29/16 14:00 10/06/16 13:59 09/30/16 12:20 Zinc Sulfate (Zinc Sulfate) 220 mg DAILY GT 09/15/16 09:00 10/15/16 08:59 09/30/16 08:36 ADRIENNE FERRELL Sep 30, 2016 14:07
--- NOTE | 2016-09-30 14:52 | Wound Care Consultation ---
Wound Assessment Wound Assessment #1: Wound Number: #1 Wound Present on Admission: Yes New Wound: No Status Change of Wound: No Wound Location Body Site Modif: right Wound Location Body Site: ear Wound Type: pressure ulcer Chinyere Test: Does not Chinyere Pressure Ulcer Stage: IV/unstageable Wound Thickness: Full Thickness Wound Length: 1.0 Wound Width: 0.5 Wound Depth: UTD Percent of Wound [place]/Red: 50 Percent of Wound Black/Brown: 50 Wound Drainage Description: Serosanguineous Wound Drainage Amount: Moderate Wound Drainage Odor: None/Absent Tissue Surrounding Wound: Erythemic Wound General Appearance: Reddened, Clean/Dry Wound Assessment #2: Wound Number: #2 Wound Present on Admission: Yes New Wound: No Status Change of Wound: No Wound Location Body Site Modif: left, lateral Wound Location Body Site: malleolus/ankle Wound Type: pressure ulcer Chinyere Test: Does not Chinyere Pressure Ulcer Stage: IV/unstageable Wound Thickness: Full Thickness Wound Length: 1.5 Wound Width: 1.0 Wound Depth: UTD Percent of Wound Black/Brown: 100 - DRY THICK ADHERED SCAB Wound Drainage Amount: None Wound Drainage Odor: None/Absent Tissue Surrounding Wound: Intact Wound General Appearance: Blackened - THICK SCAB Wound Assessment #3: Wound Number: #3 Wound Present on Admission: Yes New Wound: No Status Change of Wound: No Wound Location Body Site Modif: left Wound Location Body Site: heel Wound Type: pressure ulcer Chinyere Test: Does not Chinyere Pressure Ulcer Stage: deep tissue injury Wound Thickness: Full Thickness Wound Length: 2.0 Wound Width: 2.0 Percent of Wound Vallejo/Red: 100 - 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 Wound Drainage Amount: None Wound Drainage Odor: None/Absent Tissue Surrounding Wound: Erythemic Wound General Appearance: Reddened Wound Assessment #4: Wound Number: #4 Wound Present on Admission: Yes New Wound: No Status Change of Wound: No Wound Location Body Site Modif: left Wound Location Body Site: toe - 1ST BIG TOE Wound Type: pressure ulcer Chinyere Test: Does not Chinyere Pressure Ulcer Stage: IV/unstageable Wound Thickness: Full Thickness Wound Length: 0.3 Wound Width: 0.3 Wound Depth: UTD Percent of Wound Bed Yellow/Wh: 100 - DRY SCABS Wound Drainage Amount: None Wound Drainage Odor: None/Absent Tissue Surrounding Wound: Intact Wound Assessment #5: Wound Number: #5 Wound Present on Admission: Yes New Wound: No Status Change of Wound: No Wound Location Body Site Modif: right, lower, posterior Wound Location Body Site: malleolus/ankle Wound Type: pressure ulcer Chinyere Test: Does not Chinyere Pressure Ulcer Stage: IV/unstageable Wound Thickness: Full Thickness Wound Length: 1.0 Wound Width: 1.0 Wound Depth: <0.1 Percent of Wound Valle[place]/Red: 100 - Superficial pink resolving. Wound Drainage Amount: None Wound Drainage Odor: None/Absent Tissue Surrounding Wound: Intact Wound General Appearance: Clean/Dry Wound Assessment #6: Wound Number: #6 Wound Present on Admission: Yes New Wound: No Status Change of Wound: No Wound Location Body Site Modif: right Wound Location Body Site: heel Wound Type: pressure ulcer Chinyere Test: Does not Chniyere Pressure Ulcer Stage: deep tissue injury Wound Thickness: Full Thickness Wound Length: 3.0 Wound Width: 5.0 Wound Depth: utd Percent of Wound Purple/Maroon: 100 Wound Drainage Amount: None Wound Drainage Odor: None/Absent Tissue Surrounding Wound: Erythemic Wound Assessment #7: Wound Number: #7 Wound Present on Admission: Yes New Wound: No Status Change of Wound: No Wound Location Body Site Modif: mid Wound Location Body Site: sacral Wound Type: pressure ulcer Chinyere Test: Does not Chinyere Pressure Ulcer Stage: IV/unstageable Wound Thickness: Full Thickness Wound Length: 9.0 Wound Width: 10.0 Wound Depth: 2.0 Percent of Wound Valle[place]/Red: 90 Percent of Wound Bed Yellow/Wh: 10 Wound Drainage Description: Serosanguineous Wound Drainage Amount: Copious Wound Drainage Odor: None/Absent Tissue Surrounding Wound: Macerated Wound Undermining at 12:00: 5.0 Wound Undermining at 3:00: 4.0 Wound Undermining at 6:00: 1.5 Wound Undermining at 9:00: 6.0 Wound General Appearance: Reddened, Draining, Bone Palpable - NOT VISIBLE, Muscle Visible Wound Assessment #8: Wound Number: #8 Wound Present on Admission: Yes New Wound: No Status Change of Wound: No Wound Location Body Site Modif: left Wound Location Body Site: ischial tuberosity Wound Type: pressure ulcer Chinyere Test: Does not Chinyere Pressure Ulcer Stage: III Wound Thickness: Full Thickness Wound Length: 0.5 Wound Width: 0.5 Wound Depth: 0.1 Percent of Wound Vallejo/Red: 100 Wound Drainage Amount: None Wound Drainage Odor: None/Absent Tissue Surrounding Wound: Intact Wound General Appearance: Reddened Wound Assessment #9: Wound Number: #9 Wound Present on Admission: Yes New Wound: No Status Change of Wound: No Wound Location Body Site Modif: left, upper, posterior Wound Location Body Site: scapula Wound Type: pressure ulcer Chinyere Test: Does not Chinyere Pressure Ulcer Stage: IV/unstageable Wound Thickness: Full Thickness Wound Length: 4.5 Wound Width: 4.5 Wound Depth: UTD Percent of Wound [place]/Red: 10 Percent of Wound Bed Yellow/Wh: 50 Percent of Wound Black/Brown: 40 Wound Drainage Description: Serosanguineous Wound Drainage Amount: Moderate Wound Drainage Odor: None/Absent Tissue Surrounding Wound: Macerated Wound General Appearance: Reddened, Draining, Necrotic Wound Assessment #10: Wound Number: #10 Wound Present on Admission: Yes New Wound: No Status Change of Wound: No Wound Location Body Site Modif: right, upper, posterior Wound Location Body Site: scapula Wound Type: pressure ulcer Chinyere Test: Does not Chinyere Pressure Ulcer Stage: IV/unstageable Wound Thickness: Full Thickness Wound Length: 5.5 Wound Width: 5.5 Wound Depth: UTD Percent of Wound [place]/Red: 80 Percent of Wound Bed Yellow/Wh: 20 Wound Drainage Amount: Moderate Wound Drainage Odor: None/Absent Tissue Surrounding Wound: Macerated Wound General Appearance: Reddened, Draining, Necrotic Wound Assessment #11: Wound Number: #11 Wound Present on Admission: No New Wound: Yes Status Change of Wound: No Wound Location Body Site Modif: left, medial, dorsal Wound Location Body Site: foot Wound Type: scab Chinyere Test: Does not Chinyere Wound Thickness: Partial Thickness Wound Length: 1.0 Wound Width: 1.0 Wound Depth: UTD Percent of Wound Black/Brown: 100 - DRY SCAB Wound Drainage Amount: None Wound Drainage Odor: None/Absent Tissue Surrounding Wound: Intact Wound General Appearance: Clean/Dry - DRY SCAB Wound Comment #1 Right ear pressure ulcer stage IV/Unstageable. #2 Left Malleolus pressure ulcer stage Iv/Unstageable. #3Left heel pressure ulcer Deep tissue injury. #4 Left 1st big toe pressure ulcer stage IV/Unstageable. #5 Right posterior ankle stage IV/Unstageable- resolving, superficial. #6 Right heel pressure ulcer deep tissue injury. #7 Mid sacral pressure ulcer stage stage IV/Unstageable with undermining. #8 Left ischial tuberosity stage III. #9 Left posterior scapula pressure ulcer stage IV/Unstageable. #10 Right posterior scapula pressure ulcer stage Iv/Unstageable. #11 Left medial dorsal foot scab. Upon reassessment noted good progress to wounds no further deterioration present. Current treatment remains effective. JUDI RAMOS Sep 30, 2016 14:52
[2016-09-30 16:00] VITALS: BP 104/67
[2016-09-30 19:00] VITALS: BP 116/71
[2016-09-30] MEDS ORDERED: Levemir Flexpen SUBQ SCH (21:00)
[2016-09-30] MEDS: Epogen (for non ESRD use) SUBQ SCH (22:16)
[2016-10-01] VITALS: BP 112/68
--- NOTE | 2016-10-01 01:58 | Progress Note ---
DATE: 09/30/2016 CARDIOLOGY PROGRESS NOTE SUBJECTIVE: The patient remains on ventilator support. He continues on antibiotics. OBJECTIVE: VITAL SIGNS: Blood pressure 111/70, pulse 90, respirations 20, and afebrile. NECK: Thin trach secretions. LUNGS: Bilateral breath sounds. CARDIAC: Regular rhythm and rate. Normal S1 and S2. EXTREMITIES: No edema. ABDOMEN: Soft. G-tube intact. IMPRESSION: 1. Bacteremia. 2. Sepsis. 3. Secondary sinus tachycardia, improved. 4. Ventilator-dependent respiratory failure. 5. Human immunodeficiency virus, positive. PLAN: 1. Continue current regimen. 2. Antibiotics per Infectious Disease crop consultant. 3. Ventilator support. 4. Long-term nutrition by feeding tube. 5. Titrate beta-meño. 6. Download as clinical parameters improve. Jl Mann M.D. DR: JOMAR JOB#: [id number] CC:
[2016-10-01 04:00] VITALS: BP 113/73
[2016-10-01] MEDS: NovoLOG Insulin Flexpen SUBQ SCH ×2 (05:22→12:04)
[2016-10-01 06:25] LABS: BASOPHILS % (AUTO) 0.8 % (0.0-2.0); EOSINOPHILS % (AUTO) 8.2 % (0.0-3.0); LYMPHOCYTES % (AUTO) 12.5 % (20.0-45.0); MEAN CORPUSCULAR HEMOGLOBIN 30.1 PG (27.0-31.0); MEAN CORPUSCULAR HGB CONC 31.6 G/DL (32.0-36.0); MEAN CORPUSCULAR VOLUME 95 FL (80-99); MEAN PLATELET VOLUME 5.7 FL (6.5-10.1); MONOCYTES % (AUTO) 2.6 % (1.0-10.0); NEUTROPHILS % (AUTO) 75.8 % (45.0-75.0); PLATELET COUNT 769 K/UL (150-450); RED BLOOD COUNT 3.18 M/UL (4.70-6.10); RED CELL DISTRIBUTION WIDTH 14.5 % (11.6-14.8); WHITE BLOOD COUNT 13.2 K/UL (4.8-10.8)
[2016-10-01 08:00] VITALS: BP 117/79
--- NOTE | 2016-10-01 08:45 | Infectious Diseases Prog Note ---
Assessment/Plan Assessment/Plan A: Pyuria, UTI Leukocytosis improving Pneumonia s/p Rx Multiple pressure ulcers VDRF Hypoglycemia Elevated transaminase Persistent vegetative state Anemia VRE colonization P: start on Meropenem Subjective ROS Limited/Unobtainable: Yes Allergies: Coded Allergies: No Known Allergies (Unverified , 07/21/16) Objective Vital Signs Last 24 Hour Vital Signs Date Time Temp Pulse Resp B/P Pulse Ox O2 Delivery O2 Flow Rate FiO2 10/01/16 04:53 93 17 45 10/01/16 04:00 45 10/01/16 04:00 96 10/01/16 04:00 99.0 96 20 113/73 100 Mechanical Ventilator 45.0 10/01/16 03:30 94 18 45 10/01/16 01:09 85 16 45 10/01/16 00:00 97.7 86 18 112/68 100 Mechanical Ventilator 45 10/01/16 00:00 84 10/01/16 00:00 45 09/30/16 23:30 83 18 45 09/30/16 22:16 102 118/76 09/30/16 21:28 99 19 45 09/30/16 20:00 45 09/30/16 20:00 100 09/30/16 19:00 97.0 98 20 116/71 99 Mechanical Ventilator 45 09/30/16 18:51 102 17 45 09/30/16 17:40 102 18 50 09/30/16 16:00 96.8 96 20 104/67 100 Mechanical Ventilator 45 09/30/16 16:00 45 09/30/16 16:00 102 09/30/16 14:59 99 18 50 09/30/16 12:56 86 16 50 09/30/16 12:00 94 09/30/16 12:00 97.9 88 16 99/62 100 Mechanical Ventilator 45 09/30/16 12:00 45 09/30/16 11:55 85 16 50 09/30/16 09:50 84 20 50 Height (Feet): 5 Height (Inches): 10.00 Weight (Pounds): 160 General Appearance: no acute distress HEENT: status post trach Respiratory/Chest: lungs clear, other - on ventilator Cardiovascular: normal rate Abdomen: soft, non tender, other - GT feeding Extremities: no edema, other - R arm PICC line Skin: ulcers Microbiology Date/Time Source Procedure Growth Status 09/29/16 18:05 Blood Blood Culture - Preliminary NO GROWTH AFTER 24 HOURS Resulted 09/29/16 22:30 Sputum Gram Stain - Final Resulted 09/29/16 22:30 Sputum Sputum Culture Pending Resulted 09/29/16 12:00 Urine,Clean Catch Urine Culture - Preliminary Gram Negative Bacillus 1 Resulted Laboratory Tests Test 09/30/16 09:35 10/01/16 05:00 White Blood Count 12.2 K/UL (4.8-10.8) H 13.2 K/UL (4.8-10.8) H Red Blood Count 3.12 M/UL (4.70-6.10) L 3.18 M/UL (4.70-6.10) L Hemoglobin 9.6 G/DL (14.2-18.0) L 9.6 G/DL (14.2-18.0) L Hematocrit 29.4 % (42.0-52.0) L 30.3 % (42.0-52.0) L Mean Corpuscular Volume 94 FL (80-99) 95 FL (80-99) Mean Corpuscular Hemoglobin 30.8 PG (27.0-31.0) 30.1 PG (27.0-31.0) Mean Corpuscular Hemoglobin Concent 32.8 G/DL (32.0-36.0) 31.6 G/DL (32.0-36.0) L Red Cell Distribution Width 14.5 % (11.6-14.8) 14.5 % (11.6-14.8) Platelet Count 738 K/UL (150-450) H 769 K/UL (150-450) H Mean Platelet Volume 5.5 FL (6.5-10.1) L 5.7 FL (6.5-10.1) L Neutrophils (%) (Auto) 76.0 % (45.0-75.0) H 75.8 % (45.0-75.0) H Lymphocytes (%) (Auto) 10.3 % (20.0-45.0) L 12.5 % (20.0-45.0) L Monocytes (%) (Auto) 4.5 % (1.0-10.0) 2.6 % (1.0-10.0) Eosinophils (%) (Auto) 6.8 % (0.0-3.0) H 8.2 % (0.0-3.0) H Basophils (%) (Auto) 2.4 % (0.0-2.0) H 0.8 % (0.0-2.0) Current Medications Medications (Trade) Dose Ordered Sig/Guillermo Route PRN Reason Start Time Stop Time Status Last Admin Dose Admin Acetaminophen (Tylenol) 650 mg Q6H PRN ORAL Mild Pain/Temp > 100.5 09/14/16 16:00 10/14/16 15:59 09/22/16 16:30 Acetaminophen/ Hydrocodone Bitart ([place] 5/325) 1 tab Q4H PRN ORAL Moderate Pain (Pain Scale 4-6) 09/25/16 07:30 10/02/16 07:29 09/28/16 13:03 Ascorbic Acid (Vitamin C) 500 mg DAILY GT 09/15/16 09:00 10/15/16 08:59 09/30/16 08:36 Bisacodyl (Dulcolax) 10 mg PRN PRN RECTAL Constipation 09/14/16 15:45 10/14/16 15:44 Carbamazepine (TEGretol) 400 mg TID GT 09/14/16 18:00 10/14/16 17:59 09/30/16 17:03 Collagenase (Santyl) 1 applic Q24HRS TOPIC 09/16/16 04:00 10/16/16 03:59 10/01/16 04:00 Dextrose (Dextrose 50%) STAT PRN IV Hypoglycemia 09/14/16 16:15 10/14/16 16:14 09/30/16 17:03 Docusate Sodium (Colace) 100 mg TWICE A DAY GT 09/14/16 18:00 10/14/16 17:59 09/30/16 17:03 Enoxaparin Sodium (Lovenox) 40 mg DAILY SUBQ 09/15/16 09:00 10/15/16 08:59 09/30/16 08:34 Epoetin Grabiel (Procrit (for non ESRD use)) 7,500 units MON-WED-FRI SUBQ 09/25/16 21:00 10/25/16 20:59 09/30/16 22:16 Gemfibrozil (Lopid) 600 mg BID GT 09/14/16 18:00 10/14/16 17:59 09/30/16 17:02 Insulin Aspart (NovoLOG) Q6HR SUBQ 09/15/16 00:00 10/15/16 00:00 10/01/16 05:22 Insulin Detemir (Levemir) 10 units DAILY SUBQ 09/29/16 09:00 10/29/16 08:59 09/30/16 08:35 Insulin Detemir (Levemir) 20 units BEDTIME SUBQ 09/30/16 21:00 10/30/16 20:59 Lactulose (Cephulac) 20 gm DAILYPRN PRN ORAL Constipation 09/14/16 15:45 10/14/16 15:44 Levetiracetam (Keppra) 500 mg Q12HR NG 09/20/16 21:00 10/20/16 20:59 09/30/16 22:16 Magnesium Hydroxide (Mom) 30 ml DAILY PRN GT Constipation 09/14/16 15:45 10/14/16 15:44 Metoclopramide HCl (Reglan) 10 mg Q6H PRN GT Nausea & Vomiting 09/14/16 18:00 10/14/16 17:59 Metoprolol Tartrate (Lopressor) 100 mg EVERY 12 HOURS GT 09/14/16 21:00 10/14/16 20:59 09/30/16 22:16 Pantoprazole (Protonix) 40 mg DAILY IVP 09/15/16 09:00 10/15/16 08:59 09/30/16 08:32 Sodium Phosphate (Fleet's Sodium Phosl Enema) 133 ml DAILY PRN RECTAL Constipation 09/14/16 15:45 10/14/16 15:44 Valproic Acid (Depakene) 250 mg EVERY 12 HOURS NG 09/14/16 21:00 10/14/16 20:59 09/30/16 22:15 Zinc Sulfate (Zinc Sulfate) 220 mg DAILY GT 09/15/16 09:00 10/15/16 08:59 09/30/16 08:36 ADRIENNE FERRELL Oct 01, 2016 08:45
[2016-10-01] MEDS: carBAMazepine 200mg tab GT SCH ×2 (09:57→12:06)
[2016-10-01] MEDS: Docusate 100mg tablet GT SCH (09:58)
[2016-10-01] MEDS: levETIRAcetam 500mg/5ml Liquid NG SCH (09:58)
[2016-10-01] MEDS: Pantoprazole Inj IVP SCH (09:58)
[2016-10-01] MEDS: Valproic Acid 250mg/5ml Liquid NG SCH (09:58)
[2016-10-01] MEDS: Zinc Sulfate 220mg cap GT SCH (09:58)
[2016-10-01] MEDS: Ascorbic Acid 500mg tab GT SCH (09:58)
[2016-10-01] MEDS: Enoxaparin 40mg Inj SUBQ SCH (09:59)
[2016-10-01] MEDS: Levemir Flexpen SUBQ SCH (10:00)
[2016-10-01] MEDS ORDERED: Meropenem 1 GM in NS 55 ML IVPB SCH (10:30)
[2016-10-01 12:00] VITALS: BP 118/78
[2016-10-01 16:00] VITALS: BP 110/66
[2016-10-01] MEDS ORDERED: NS 275ml ONE (17:25)
[2016-10-01] MEDS ORDERED: Sterile Water For Irrig 2000ml IRRIG ONE (17:25)
--- NOTE | 2016-10-01 19:23 | General Progress Note ---
Assessment/Plan Assessment/Plan Respiratory failure tachycardia sepsis Bacteremia ALOC leukocytosis Anemia VRE proteus UTI PLAN ID noted care noted and reviewed guarded overall stable oxygenation stable assess oxygen saturations dc to snf late entry impression, plan, and exam edited and reviewed in detail care discussed with RN Subjective ROS Limited/Unobtainable: Yes Allergies: Coded Allergies: No Known Allergies (Unverified , 07/21/16) Subjective care noted has been stable Objective Last 24 Hour Vital Signs Date Time Temp Pulse Resp B/P Pulse Ox O2 Delivery O2 Flow Rate FiO2 10/01/16 16:00 97.0 91 18 110/66 97 Mechanical Ventilator 45 10/01/16 14:45 90 18 45 10/01/16 13:35 88 21 45 10/01/16 12:00 98.5 98 18 118/78 100 Mechanical Ventilator 45 10/01/16 12:00 45 10/01/16 12:00 92 10/01/16 11:07 84 13 45 10/01/16 09:58 100 117/79 10/01/16 09:30 100 18 45 10/01/16 08:00 45 10/01/16 08:00 89 10/01/16 08:00 99.5 98 16 117/79 100 Mechanical Ventilator 45 10/01/16 07:05 99 15 45 10/01/16 04:53 93 17 45 10/01/16 04:00 45 10/01/16 04:00 96 10/01/16 04:00 99.0 96 20 113/73 100 Mechanical Ventilator 45.0 10/01/16 03:30 94 18 45 10/01/16 01:09 85 16 45 10/01/16 00:00 97.7 86 18 112/68 100 Mechanical Ventilator 45 10/01/16 00:00 84 10/01/16 00:00 45 09/30/16 23:30 83 18 45 09/30/16 22:16 102 118/76 09/30/16 21:28 99 19 45 09/30/16 20:00 45 09/30/16 20:00 100 Intake and Output 09/30/16 10/01/16 19:00 07:00 Intake Total 660 ml 705 ml Output Total 250 ml 800 ml Balance 410 ml -95 ml Free Water 100 ml Tube Feeding 660 ml 605 ml Output Urine Total 250 ml 800 ml Laboratory Tests 10/01/16 05:00: White Blood Count 13.2H, Red Blood Count 3.18L, Hemoglobin 9.6L, Hematocrit 30.3L, Mean Corpuscular Volume 95, Mean Corpuscular Hemoglobin 30.1, Mean Corpuscular Hemoglobin Concent 31.6L, Red Cell Distribution Width 14.5, Platelet Count 769H, Mean Platelet Volume 5.7L, Neutrophils (%) (Auto) 75.8H, Lymphocytes (%) (Auto) 12.5L, Monocytes (%) (Auto) 2.6, Eosinophils (%) (Auto) 8.2H, Basophils (%) (Auto) 0.8 Height (Feet): 5 Height (Inches): 10.00 Weight (Pounds): 160 Objective WDWN NAD stable breath sounds bilaterally without rhonchi or wheeze [id number] without MRG NABS nontender no HSM; GT no CCE nonfocal poor LOC and withdrawn LAURA ROSENBAUM Oct 01, 2016 19:23
--- NOTE | 2016-10-01 22:40 | Progress Note ---
DATE: 10/01/2016 SUBJECTIVE: The patient remains on ventilator support. He is comatose. OBJECTIVE: VITAL SIGNS: Blood pressure 113/73, heart rate 85 to 96, respiratory rate 20, and temperature max 99. HEENT: Temporal wasting. LUNGS: Bilateral rhonchi. NECK: Thin trach secretions. HEART: Regular rhythm and rate. Normal S1, S2. EXTREMITIES: With no edema. G-tube intact. IMPRESSION: 1. Urinary tract infection. 2. Sepsis. 3. Autonomic dysfunction. 4. Persistent vegetative state. 5. Ventilator-dependent respiratory failure. 6. Anemia, multifactorial. PLAN: 1. Stable for lower level of care. 2. Continue beta-meño and titrate based on clinical parameters. 3. DVT and stress ulcer prophylaxis. Jl Mann M.D. DR: DINORAH JOB#: [id number] CC:
--- NOTE | 2016-10-02 20:52 | Discharge Summary ---
Discharge Summary Hospital Course Date of Admission Sep 14, 2016 at 10:05 Date of Discharge Oct 01, 2016 at 17:26 Admitting Diagnosis severe sepsis, vent dependent HPI Miki Whitman is a 41 year old male who was admitted on Sep 14, 2016 at 10:05 for Severe Sepsis,Vent Dependent Hospital Course [id number] Discharge Discharge Disposition Patient was discharged to SNF/Subacute Facility(03) Discharge Diagnoses: Carmen Rodriguez NP Oct 02, 2016 20:52
--- NOTE | 2016-10-03 04:08 | Discharge Summary 2 SIG ---
DATE OF ADMISSION: 09/14/2016 DATE OF DISCHARGE: 10/01/2016 CONSULTANTS: 1. Jl Mann M.D. 2. Tracie Isaac M.D. BRIEF HOSPITAL COURSE: The patient is a 41-year-old unfortunate male with persistent vegetative state coming in for significant tachycardia. The patient was evaluated and was noted to have a heart rate up to 180s The patient was admitted for sepsis. Dr. Isaac was consulted for leukocytosis and urinary tract infection. He was pancultured. Urine showed growth of Proteus. Sputum culture showed growth of Acinetobacter/Klebsiella Blood culture with growth of Klebsiella. He was also followed by Dr. Mann and was continued on beta-meño. He was eventually transferred to SNF. FINAL DIAGNOSES: 1. Acute respiratory failure. 2. Tachycardia. 3. Klebsiella sepsis. 4. Bacteremia. 5. Acute on chronic encephalopathy. 6. Proteus urinary tract infection. 7. Anemia. 8. Human immunodeficiency virus positive. 9. Severe protein-calorie malnutrition. 10. Multiple decubiti pressure ulcer present on admission. Andres Wakefield M.D. I have been assigned to dictate discharge summary on this account and I was not involved in the patient's management. Carmen Rodriguez N.P. DR: RYAN JOB#: [id number] CC: DEAN
== END 2016-10-01 17:26 | DRG 720 ==
LOC: EDBD 08:37 → EMR 08:55 → 2W 10:05 → EDBEDREQ 10:09 → UNDODISIN 09-20 16:05
PROC: 5A1955Z Respiratory Ventilation, Greater than 96 Consecutive Hours (ICD-10-PCS; principal; 2016-09-14)
PROC: 02HV33Z Insertion of Infusion Device into Superior Vena Cava, Percutaneous Approach (ICD-10-PCS; 2016-09-16)
PROC: B548ZZA Ultrasonography of Superior Vena Cava, Guidance (ICD-10-PCS; 2016-09-16)
DX: A41.59 Other Gram-negative sepsis (principal); J96.20 Acute and chronic respiratory failure, unspecified whether with hypoxia or hypercapnia; E43 Unspecified severe protein-calorie malnutrition; G93.49 Other encephalopathy; L89.894 Pressure ulcer of other site, stage 4; J15.0 Pneumonia due to Klebsiella pneumoniae; J15.8 Pneumonia due to other specified bacteria; Z93.0 Tracheostomy status; R65.20 Severe sepsis without septic shock; N39.0 Urinary tract infection, site not specified; D64.9 Anemia, unspecified; K76.9 Liver disease, unspecified; Z93.1 Gastrostomy status; R00.0 Tachycardia, unspecified; B96.4 Proteus (mirabilis) (morganii) as the cause of diseases classified elsewhere; Z68.23 Body mass index [BMI] 23.0-23.9, adult; D64.89 Other specified anemias; Z16.39 Resistance to other specified antimicrobial drug; R74.8 Abnormal levels of other serum enzymes; E11.65 Type 2 diabetes mellitus with hyperglycemia; A04.7 Enterocolitis due to Clostridium difficile; E11.649 Type 2 diabetes mellitus with hypoglycemia without coma
CPT/HCPCS: 36415; 36569; 36600; 71010; 76700; 76937; 80048; 80053; 80076; 80162; 80202; 81001; 81003; 82248; 82550; 82553; 82803; 82947; 82962; 83605; 83690; 83880; 84484; 85007; 85025; 87040; 87070; 87081; 87086; 87181; 87205; 87493; 93005; 93306; 93970; 94002; 94003; 94640; 94664; J1165; J1815; S5561

== ENCOUNTER 2016-11-03 18:22 | Inpatient (IN) | payer MEDICAID ==
[~2016-11-03] VITALS: Ht 195.6 cm; Wt 77.1 kg
[~2016-11-03 18:22] MED LIST changes: +ACETAMINOP160 MG/5 M GT; +DOCUSATE SODIU100 MG GT; +DULCOLAX10 MG RC; +EPOGEN20000 UNIT SUBQ; +FLEET ENEMA133 ML RECTAL; +GEMFIBROZIL600 MG GT; +LANTUS SOL100 UNIT/1 SUBQ; +MILK OF MA400 MG/51 GT; +PROMOD946 ML GT; +UTI-STAT L3875 MG/31 GT; +VITAMIN C500 MG/11 PO; +ZINC SULFATE220 M1 GT
[2016-11-03 19:59] LABS: APPEARANCE,URINE CLOUDY; KETONES,URINE 1+ (NEGATIVE); LEUKOCYTE ESTERASE ,URINE 2+ (NEGATIVE); NITRITE,URINE NEGATIVE (NEGATIVE); PH,URINE 8 (4.5-8.0); PROTEIN,URINE 4+ (NEGATIVE); UROBILINOGEN,URINE NORMAL MG/DL (0.0-1.0)
[2016-11-03 20:02] LABS: BACTERIA,URINE MANY /HPF; WBC,URINE 20-30 /HPF (0 - 0)
[2016-11-03 20:03] LABS: AMORPHOUS SEDIMENT,UR FEW /LPF; RBC,URINE 30-40 /HPF (0 - 0)
[2016-11-03 20:09] VITALS: BP 93/69
--- NOTE | 2016-11-03 20:54 | Emergency Room Report ---
History of Present Illness General Chief Complaint: Male Urogenital Problems Source: Family Member, EMS, PMD Present Illness HPI 41Y[address] PM[address] Wakefield sent from SNF for hematuria, thought traumatic after Ferrari placement. Per mother, noted easily bleeding with shaving recently. Gross hematuria in urine. Patient on Lovenox DVT PPx. PMHx: Chronic respiratory failure, quadraplegic, epilepsy, HTN Allergies: Coded Allergies: No Known Allergies (Unverified , 07/21/16) Patient History Past Medical History: other - see HPI Past Surgical History: other - Trach, PEG Pertinent Family History: none Social History: Denies: alcohol use, drug use, smoking Immunizations: UTD Reviewed Nursing Documentation: PMH: Agreed, PSxH: Agreed Nursing Documentation-PMH Past Medical History: No History, Except For Hx Hypertension: Yes Hx Diabetes: Yes Hx Cancer: No Hx Gastrointestinal Problems: Yes - G-tube, Hx Cerebrovascular Accident: Yes Hx Seizures: Yes Review of Systems All Other Systems: limited - Unable to obtain, patient aphasic Physical Exam Vital Signs Date Time Temp Pulse Resp B/P Pulse Ox O2 Delivery O2 Flow Rate FiO2 11/03/16 18:16 96.4 111 16 103/64 100 Trach Collar 5.0 11/03/16 19:04 40 Sp02 EP Interpretation: reviewed, abnormal General Appearance: normal inspection, well appearing, no apparent distress, alert, GCS 15, non-toxic Head: normocephalic, atraumatic Eyes: bilateral eye EOMI, bilateral eye PERRL ENT: normal ENT inspection, normal pharynx, no angioedema, dry mucus membranes , other - Trach in place, no air leak Neck: normal inspection, full range of motion, supple, no bony tend Respiratory: normal inspection, lungs clear, normal breath sounds, no respiratory distress, no retraction, no wheezing Cardiovascular #1: regular rate, rhythm, no edema Gastrointestinal: normal inspection, normal bowel sounds, non tender, soft, no guarding, no hernia Genitourinary: no CVA tenderness, other - gross hematuria in ferrari bag Musculoskeletal: normal inspection, back normal, normal range of motion, Shawna' s Sign negative Neurologic: normal inspection, alert, responsive, speech normal Psychiatric: normal inspection, judgement/insight normal, mood/affect normal Skin: normal inspection, normal color, no rash Medical Decision Making Diagnostic Impression: Primary Impression: Hematuria Additional Impression: UTI (urinary tract infection) Qualified Codes: N30.01 - Acute cystitis with hematuria ER Course Traumatic hematuria, d/t UTI and possible anticoagulation VS notable for tachycardia. BP 96/60. Afebrile Dry mucous membranes. Given hydration Urine and Blood Cx pending Abx given Labs: Leuks 12. INR 1.[address] Wakefield for ISAAC admission at 830pm Rhythm Strip Diag. Results EP Interpretation: yes Rate: 115 Rhythm: NSR, no PVC's, no ectopy Last Vital Signs Date Time Temp Pulse Resp B/P Pulse Ox O2 Delivery O2 Flow Rate FiO2 11/03/16 20:09 114 16 93/69 99 Mechanical Ventilator 40 11/03/16 18:16 96.4 5.0 Status: improved Disposition: ADMITTED INPATIENT Condition: Serious TIESHA ORELLANA M.D. Nov 03, 2016 20:54
[2016-11-03] MEDS ORDERED: Vancomycin 1 GM in D5W 275 ML IVPB ONE (21:00)
[2016-11-03] MEDS ORDERED: Piperacillin/Tazobactam 3.375 GM in NS 110 ML IVPB ONE (21:00)
[2016-11-03] MEDS ORDERED: Zosyn 3.375gm inj ONE (21:29)
[2016-11-03] MEDS ORDERED: Vancomycin 1gm inj IVPB ONE (21:29)
[2016-11-03 21:40] VITALS: BP 99/63
[2016-11-03 21:48] LABS: INR 1.1 (0.9-1.1); PROTHROMBIN TIME 11.1 SEC (9.30-11.50)
[2016-11-03 21:50] LABS: BASOPHILS % (AUTO) 1.3 % (0.0-2.0); EOSINOPHILS % (AUTO) 2.3 % (0.0-3.0); LYMPHOCYTES % (AUTO) 8.8 % (20.0-45.0); MEAN CORPUSCULAR HEMOGLOBIN 29.2 PG (27.0-31.0); MEAN CORPUSCULAR HGB CONC 31.4 G/DL (32.0-36.0); MEAN CORPUSCULAR VOLUME 93 FL (80-99); MEAN PLATELET VOLUME 5.1 FL (6.5-10.1); MONOCYTES % (AUTO) 7.3 % (1.0-10.0); NEUTROPHILS % (AUTO) 80.4 % (45.0-75.0); PLATELET COUNT 730 K/UL (150-450); RED BLOOD COUNT 3.45 M/UL (4.70-6.10); RED CELL DISTRIBUTION WIDTH 14.2 % (11.6-14.8); WHITE BLOOD COUNT 12.7 K/UL (4.8-10.8)
[2016-11-03 21:54] LABS: ALANINE AMINOTRANSFERASE 33 U/L (3-41); ALBUMIN/GLOBULIN RATIO 0.6 (1.0-2.7); ANION GAP 15 (5-15); ASPARTATE AMINO TRANSFERASE 35 U/L (5-40); CALCIUM 9.5 mg/dL (8.6-10.2); CARBON DIOXIDE 32 mEQ/L (20-30); CHLORIDE 83 mEQ/L (98-107); CREATININE 0.8 mg/dL (0.7-1.2); GLOMERULAR FILTRATION RATE > 60 mL/min (>60); HEMOLYSIS 0; POTASSIUM 4.1 mEQ/L (3.4-4.9); SODIUM 130 mEQ/L (135-145); TOTAL PROTEIN 7.9 g/dL (6.6-8.7)
[2016-11-03] MEDS ORDERED: ATIVAN1 MG GT (22:56)
[2016-11-03] MEDS ORDERED: LEVEMIR100 UNIT/1 SUBQ (22:58)
[2016-11-03] MEDS ORDERED: FLEET ENEMA133 ML RECTAL (22:58)
[2016-11-03] MEDS ORDERED: MULTI-DELYN237 ML GT (22:59)
[2016-11-03] MEDS ORDERED: NORCO 5-325 TA1 EACH ORAL (23:01)
[2016-11-03] MEDS ORDERED: PROMOD946 ML PO (23:01)
[2016-11-04 00:52] VITALS: BP 120/74
[2016-11-04] MEDS ORDERED: Vancomycin 1250mg/D5W 275ml IVPB SCH ×2 (01:30)
[2016-11-04] MEDS ORDERED: Norco 5mg/325mg tab ORAL PRN (01:45)
[2016-11-04] MEDS ORDERED: Milk of Magnesia 30ml Ud GT PRN (01:45)
[2016-11-04] MEDS ORDERED: Ipratropium 0.02% Inh Soln 2.5ml UD HHN PRN (01:45)
[2016-11-04] MEDS: Vancomycin 1250mg/D5W 275ml IVPB SCH ×4 (03:46→13:38)
[2016-11-04 04:00] VITALS: BP 126/74
[2016-11-04] MEDS ORDERED: carBAMazepine 200mg tab GT SCH (06:00)
[2016-11-04 06:24] LABS: BASOPHILS % (AUTO) 1.3 % (0.0-2.0); EOSINOPHILS % (AUTO) 3.7 % (0.0-3.0); MEAN CORPUSCULAR HEMOGLOBIN 29.3 PG (27.0-31.0); MEAN CORPUSCULAR HGB CONC 31.8 G/DL (32.0-36.0); MEAN CORPUSCULAR VOLUME 92 FL (80-99); MEAN PLATELET VOLUME 5.2 FL (6.5-10.1); MONOCYTES % (AUTO) 6.4 % (1.0-10.0); NEUTROPHILS % (AUTO) 82.7 % (45.0-75.0); PLATELET COUNT 729 K/UL (150-450); RED BLOOD COUNT 3.22 M/UL (4.70-6.10); RED CELL DISTRIBUTION WIDTH 14.6 % (11.6-14.8); WHITE BLOOD COUNT 14.2 K/UL (4.8-10.8)
[2016-11-04 06:39] LABS: ANION GAP 14 (5-15); CALCIUM 9.2 mg/dL (8.6-10.2); CARBON DIOXIDE 31 mEQ/L (20-30); CHLORIDE 91 mEQ/L (98-107); CREATININE 0.5 mg/dL (0.7-1.2); GLOMERULAR FILTRATION RATE > 60 mL/min (>60); HEMOLYSIS 0; POTASSIUM 3.7 mEQ/L (3.4-4.9); SODIUM 136 mEQ/L (135-145)
[2016-11-04 08:00] VITALS: BP 141/90
[2016-11-04] MEDS: Valproic Acid 250mg/5ml Liquid GT SCH ×2 (09:17→20:43)
[2016-11-04] MEDS: Pantoprazole Inj IVP SCH (09:19)
[2016-11-04] MEDS: Zinc Sulfate 220mg cap GT SCH (09:19)
[2016-11-04] MEDS: Ascorbic Acid 500mg tab GT SCH (09:19)
[2016-11-04] MEDS: Cefepime HCl 1 GM in D5W 55 ML IVPB SCH ×2 (09:20→20:43)
[2016-11-04] MEDS: Norco 5mg/325mg tab ORAL PRN ×2 (10:35→16:42)
--- NOTE | 2016-11-04 11:25 | Diagnostic Imaging Report ---
Indication: SOB Technique: One view of the chest Comparison: 09/28/2016 Findings: Tracheostomy remains. Previously demonstrated right arm PICC is no longer evident. The lungs and pleural spaces are clear. Heart size is normal. Deformities of the right clavicle and scapula are incompletely included Impression: No acute process. Findings as noted
[2016-11-04 16:36] VITALS: BP 112/86
[2016-11-04] MEDS: LORazepam 1mg tab GT PRN (16:42)
[2016-11-04] MEDS ORDERED: Tubing IV Secondary IV ONE (18:17)
[2016-11-04 20:00] VITALS: BP 108/73
[2016-11-04] MEDS: Epogen (for non ESRD use) SUBQ SCH (20:55)
[2016-11-04] MEDS ORDERED: Epogen (for ESRD on dialysis) SUBQ SCH (21:00)
[2016-11-04] MEDS: carBAMazepine 200mg tab GT SCH (21:56)
--- NOTE | 2016-11-04 23:58 | History and Physical Report ---
DATE OF ADMISSION: 11/03/2016 REASON FOR ADMISSION: Hematuria and urinary tract infection. HISTORY OF PRESENT ILLNESS: This is a 41-year-old unfortunate male with multiple medical problems. The patient was noted to have hematuria. He was brought in for evaluation. The patient is on Lovenox. PAST MEDICAL HISTORY: Notable for chronic respiratory failure, quadriplegia, seizure disorder, hypertension, and chronic vegetative state. SOCIAL HISTORY: The patient resides at [facility]. FAMILY HISTORY: Unobtainable. REVIEW OF SYSTEMS: Unobtainable. PHYSICAL EXAMINATION: GENERAL: The patient is well developed male. The patient is aphasic, poorly responsive. VITAL SIGNS: Notable for heart rate of 105, respiratory rate 16, blood pressure 112/86 and saturation 100%. HEENT: Negative. NECK: Supple. LUNGS: Moderate breath sounds. CARDIAC: Tachycardic. ABDOMEN: Soft. G-tube. EXTREMITIES: No cyanosis, clubbing or edema. Pereira catheter in place. LABORATORY AND DIAGNOSTIC DATA: Lab data reviewed. White cell count 14.2, hemoglobin 9.4. Bicarbonate 31. Urinalysis noted. IMPRESSION: 1. Hematuria. 2. Urinary tract infection. 3. Evidence of sinus tachycardia. 4. Respiratory failure. 5. Chronic vegetative state. 6. History of seizure disorder. RECOMMENDATION: Empiric antibiotics. Urine culture already revealed gram-negative rods. We will follow up with final culture results and adjust antibiotics as needed. Follow up labs recommend further. Follow up Tegretol level and adjust medications. Currently on Epogen for anemia and on metoprolol for her rate control. Monitor his blood pressure control. Follow clinically and assist with discharge once the patient stabilizes. Andres Wakefield M.D. DR: MELISSA JOB#: [id number] CC:
[2016-11-05] VITALS: BP 99/62
[2016-11-05] MEDS: Vancomycin 1250mg/D5W 275ml IVPB SCH ×2 (01:33)
[2016-11-05] MEDS: Norco 5mg/325mg tab ORAL PRN (03:57)
[2016-11-05 04:00] VITALS: BP 117/69
[2016-11-05 05:11] LABS: MEAN CORPUSCULAR HEMOGLOBIN 29.4 PG (27.0-31.0); MEAN CORPUSCULAR HGB CONC 30.5 G/DL (32.0-36.0); MEAN CORPUSCULAR VOLUME 96 FL (80-99); MEAN PLATELET VOLUME 5.4 FL (6.5-10.1); PLATELET COUNT 756 K/UL (150-450); RED BLOOD COUNT 3.16 M/UL (4.70-6.10); RED CELL DISTRIBUTION WIDTH 15.2 % (11.6-14.8); WHITE BLOOD COUNT 18.9 K/UL (4.8-10.8)
[2016-11-05 05:22] LABS: ALANINE AMINOTRANSFERASE 74 U/L (3-41); ALBUMIN/GLOBULIN RATIO 0.6 (1.0-2.7); ANION GAP 20 (5-15); ASPARTATE AMINO TRANSFERASE 151 U/L (5-40); CALCIUM 9.2 mg/dL (8.6-10.2); CARBON DIOXIDE 25 mEQ/L (20-30); CHLORIDE 94 mEQ/L (98-107); CREATININE 0.8 mg/dL (0.7-1.2); GLOMERULAR FILTRATION RATE > 60 mL/min (>60); HEMOLYSIS 0; POTASSIUM 4.9 mEQ/L (3.4-4.9); SODIUM 139 mEQ/L (135-145); TOTAL PROTEIN 7.1 g/dL (6.6-8.7)
[2016-11-05 06:05] LABS: CARBAMAZEPINE (TEGRETOL) < 2.0 ug/mL (4.0-12.0)
[2016-11-05] MEDS: carBAMazepine 200mg tab GT SCH ×3 (06:53→21:10)
[2016-11-05 08:00] VITALS: BP 102/52
--- NOTE | 2016-11-05 08:15 | General Progress Note ---
Assessment/Plan Assessment/Plan IMPRESSION: 1. Hematuria. 2. Urinary tract infection. 3. Evidence of sinus tachycardia. 4. Respiratory failure. 5. Chronic vegetative state. 6. History of seizure disorder. 7. leukocytosis PLAN ID evaluation hydrate ferrari monitor UO ventilator follow up cultures follow up labs Subjective ROS Limited/Unobtainable: Yes Allergies: Coded Allergies: No Known Allergies (Unverified , 07/21/16) Subjective withdrawn Objective Last 24 Hour Vital Signs Date Time Temp Pulse Resp B/P Pulse Ox O2 Delivery O2 Flow Rate FiO2 11/05/16 07:54 100.4 11/05/16 07:27 122 26 40 11/05/16 04:57 124 25 40 11/05/16 04:00 40 11/05/16 04:00 100.4 126 21 117/69 99 Mechanical Ventilator 40 11/05/16 03:48 126 11/05/16 02:58 115 37 40 11/05/16 00:41 109 18 40 11/05/16 00:00 99.1 106 20 99/62 99 Mechanical Ventilator 40 11/05/16 00:00 40 11/04/16 23:44 103 11/04/16 23:12 109 14 40 11/04/16 21:19 114 17 40 11/04/16 20:44 113 138/84 11/04/16 20:00 118 11/04/16 20:00 97.5 117 19 108/73 96 Trach Collar 11/04/16 20:00 40 11/04/16 18:51 121 20 40 11/04/16 17:41 98.1 11/04/16 16:56 110 22 40 11/04/16 16:36 98.1 139 18 112/86 100 Mechanical Ventilator 11/04/16 16:00 128 11/04/16 16:00 40 11/04/16 15:14 102 16 40 11/04/16 13:16 105 16 40 11/04/16 12:00 40 11/04/16 12:00 109 11/04/16 11:01 103 16 40 11/04/16 09:22 109 141/90 11/04/16 08:43 112 16 40 Intake and Output 11/04/16 11/05/16 19:00 07:00 Intake Total 2601.6 ml 2205 ml Output Total 325 ml 1900 ml Balance 2276.6 ml 305 ml Intake Free Water 100 ml 50 ml IV Total 1676.6 ml 1455 ml Tube Feeding 725 ml 600 ml Other 100 ml 100 ml Output Urine Total 325 ml 1900 ml # Bowel Movements 1 2 Laboratory Tests 11/05/16 04:50: White Blood Count 18.9H, Red Blood Count 3.16L, Hemoglobin 9.3L, Hematocrit 30.5L, Mean Corpuscular Volume 96, Mean Corpuscular Hemoglobin 29.4, Mean Corpuscular Hemoglobin Concent 30.5L, Red Cell Distribution Width 15.2H, Platelet Count 756H, Mean Platelet Volume 5.4L, Neutrophils (%) (Auto) , Lymphocytes (%) (Auto) , Monocytes (%) (Auto) , Eosinophils (%) (Auto) , Basophils (%) (Auto) , Neutrophils % (Manual) [Pending], Lymphocytes % (Manual) [Pending], Platelet Estimate [Pending], Platelet Morphology [Pending], Sodium Level 139, Potassium Level 4.9, Chloride Level 94L, Carbon Dioxide Level 25, Anion Gap 20H, Blood Urea Nitrogen 35H, Creatinine 0.8#, Estimat Glomerular Filtration Rate > 60, Glucose Level 696#*H, Calcium Level 9.2, Total Bilirubin 0.4, Aspartate Amino Transf (AST/SGOT) 151H, Alanine Aminotransferase (ALT/SGPT ) 74H, Alkaline Phosphatase 1283H, Total Protein 7.1, Albumin 2.7L, Globulin 4.4 , Albumin/Globulin Ratio 0.6L, Carbamazepine (Tegretol) Level < 2.0L Height (Feet): 6 Height (Inches): 5.00 Weight (Pounds): 170 Objective GENERAL: The patient is well developed male. The patient is aphasic, poorly responsive. HEENT: Negative. NECK: Supple. LUNGS: Moderate breath sounds. occasional rhonchi CARDIAC: Tachycardic. ABDOMEN: Soft. G-tube. EXTREMITIES: No cyanosis, clubbing or edema. Ferrari catheter in place. LAURA ROSENBAUM Nov 05, 2016 08:15
[2016-11-05 09:33] LABS: ANISOCYTOSIS 1+; BAND NEUTROPHILS % (MANUAL) 4 % (0-8); BASOPHILS % (MANUAL) 0 % (0-2); EOSINOPHILS % (MANUAL) 1 % (0-3); HYPOCHROMASIA 1+; LYMPHOCYTES % (MANUAL) 5 % (20-45); NEUTROPHILS % (MANUAL) 84 % (45-75); PLATELET ESTIMATE INCREASED; PLATELET MORPHOLOGY NORMAL; TOTAL CELLS COUNTED 100
[2016-11-05] MEDS: Cefepime HCl 1 GM in D5W 55 ML IVPB SCH (10:26)
[2016-11-05] MEDS: Pantoprazole Inj IVP SCH (10:26)
[2016-11-05] MEDS: Ascorbic Acid 500mg tab GT SCH (10:27)
[2016-11-05] MEDS: Valproic Acid 250mg/5ml Liquid GT SCH ×2 (10:27→20:54)
[2016-11-05] MEDS: Zinc Sulfate 220mg cap GT SCH (10:28)
[2016-11-05] MEDS: NovoLOG Insulin Flexpen SUBQ SCH ×3 (11:17→20:56)
--- NOTE | 2016-11-05 11:31 | Wound Care Consultation ---
Wound Assessment Wound Assessment #1: Wound Present on Admission: Yes New Wound: No Status Change of Wound: No Wound Location Body Site Modif: right Wound Location Body Site: scapula Wound Type: pressure ulcer Chinyere Test: Does not Chinyere Pressure Ulcer Stage: IV/unstageable Wound Thickness: Full Thickness Wound Length: 2.5 Wound Width: 5.0 Wound Depth: hypergranulated Percent of Wound Derry/Red: 100 Wound Drainage Amount: Scant Wound Drainage Odor: None/Absent Tissue Surrounding Wound: Intact Wound General Appearance: Reddened, Draining Wound Assessment #2: Wound Number: #2 Wound Present on Admission: Yes New Wound: No Status Change of Wound: No Wound Location Body Site Modif: left Wound Location Body Site: scapula Chinyere Test: Does not Chinyere Pressure Ulcer Stage: IV/unstageable Wound Thickness: Full Thickness Wound Length: 4.0 Wound Width: 5.0 Wound Depth: utd Percent of Wound D[place]/Red: 60 Percent of Wound Bed Yellow/Wh: 40 Wound Drainage Description: Serosanguineous Wound Drainage Amount: Scant Wound Drainage Odor: None/Absent Tissue Surrounding Wound: Macerated Wound General Appearance: Reddened, Draining Wound Assessment #3: Wound Number: #3 Wound Present on Admission: Yes New Wound: No Status Change of Wound: No Wound Location Body Site Modif: right Wound Location Body Site: heel Wound Type: pressure ulcer Chinyere Test: Does not Chinyere Pressure Ulcer Stage: IV/unstageable Wound Thickness: Full Thickness Wound Length: 7.0 Wound Width: 7.0 Wound Depth: utd Percent of Wound Derry/Red: 20 Percent of Wound Purple/Maroon: 80 Wound Drainage Description: Serosanguineous Wound Drainage Amount: Scant Wound Drainage Odor: None/Absent Tissue Surrounding Wound: Erythemic Wound General Appearance: Reddened Wound Assessment #4: Wound Number: #4 Wound Present on Admission: Yes New Wound: No Status Change of Wound: No Wound Location Body Site Modif: left Wound Location Body Site: heel Wound Type: pressure ulcer Pressure Ulcer Stage: deep tissue injury Wound Thickness: Full Thickness Wound Length: 5.0 Wound Width: 8.0 Wound Depth: utd Percent of Wound Purple/Maroon: 100 Wound Drainage Amount: None Wound Drainage Odor: None/Absent Tissue Surrounding Wound: Erythemic Wound General Appearance: Asymptomatic, Reddened Wound Assessment #5: Wound Number: #5 Wound Present on Admission: Yes New Wound: No Status Change of Wound: No Wound Location Body Site Modif: left, lateral Wound Location Body Site: malleolus/ankle Wound Type: pressure ulcer Chinyere Test: Does not Chinyere Pressure Ulcer Stage: IV/unstageable - resolving Wound Thickness: Full Thickness Wound Length: 1.5 Wound Width: 2.0 Wound Depth: utd Percent of Wound Bed Yellow/Wh: 100 Wound Drainage Amount: None Wound Drainage Odor: None/Absent Tissue Surrounding Wound: scar tissue Wound General Appearance: Reddened Wound Assessment #6: Wound Number: #6 Wound Present on Admission: Yes New Wound: No Status Change of Wound: No Wound Location Body Site Modif: left, lower, lateral Wound Location Body Site: leg Wound Type: pressure ulcer Chinyere Test: Does not Chinyere Pressure Ulcer Stage: IV/unstageable Wound Thickness: Full Thickness Wound Length: 2.5 Wound Width: 1.5 Wound Depth: utd Percent of Wound Black/Brown: 100 Wound Drainage Amount: None Wound Drainage Odor: None/Absent Tissue Surrounding Wound: Intact Wound General Appearance: Blackened Wound Assessment #7: Wound Number: #7 Wound Present on Admission: Yes New Wound: No Status Change of Wound: No Wound Location Body Site Modif: mid Wound Location Body Site: sacral Wound Type: pressure ulcer Chinyere Test: Does not Chinyere Pressure Ulcer Stage: IV/unstageable Wound Thickness: Full Thickness Wound Length: 11.0 Wound Width: 9.0 Wound Depth: 3.5 Percent of Wound Derry/Red: 100 Wound Drainage Description: Serosanguineous Wound Drainage Amount: Copious Wound Drainage Odor: None/Absent Tissue Surrounding Wound: Macerated Wound Undermining at 3:00: 3.5 Wound Undermining at 9:00: 3.5 Wound General Appearance: Reddened, Draining, Bone Palpable Wound Assessment #8: Wound Number: #8 Wound Present on Admission: Yes New Wound: No Status Change of Wound: No Wound Location Body Site Modif: left Wound Location Body Site: ear Wound Type: pressure ulcer Chinyere Test: Does not Chinyere Pressure Ulcer Stage: IV/unstageable Wound Thickness: Full Thickness Wound Length: 1.0 Wound Width: 1.0 Wound Depth: utd Percent of Wound Purple/Maroon: 100 Wound Drainage Amount: None Wound Drainage Odor: None/Absent Tissue Surrounding Wound: Erythemic Wound General Appearance: Asymptomatic, Reddened Wound Assessment #9: Wound Number: #9 Wound Present on Admission: Yes New Wound: No Status Change of Wound: No Wound Location Body Site Modif: right Wound Location Body Site: ear Wound Type: pressure ulcer Chinyere Test: Does not Chinyere Pressure Ulcer Stage: IV/unstageable Wound Thickness: Full Thickness Wound Length: 3.0 Wound Width: 3.0 Wound Depth: utd Percent of Wound Derry/Red: 80 Percent of Wound Purple/Maroon: 20 Wound Drainage Amount: None Wound Drainage Odor: None/Absent Tissue Surrounding Wound: Erythemic Wound General Appearance: Reddened Wound Assessment #10: Wound Number: #10 Wound Present on Admission: Yes New Wound: No Status Change of Wound: No Wound Location Body Site Modif: left Wound Location Body Site: toe - 1st Wound Type: pressure ulcer Chinyere Test: Does not Chinyere Pressure Ulcer Stage: deep tissue injury Wound Thickness: Full Thickness Wound Length: 0.5 Wound Width: 0.5 Wound Depth: utd Percent of Wound Purple/Maroon: 100 Wound Drainage Odor: None/Absent Tissue Surrounding Wound: Erythemic Wound General Appearance: Reddened Wound Assessment #11: Wound Number: #11 Wound Present on Admission: Yes New Wound: No Status Change of Wound: No Wound Location Body Site Modif: left, medial Wound Location Body Site: malleolus/ankle Wound Type: pressure ulcer Chinyere Test: Does not Chinyere Pressure Ulcer Stage: deep tissue injury Wound Thickness: Full Thickness Wound Length: 2.0 Wound Width: 2.0 Wound Depth: utd Percent of Wound Purple/Maroon: 100 Wound Drainage Amount: None Wound Drainage Odor: None/Absent Tissue Surrounding Wound: Erythemic Wound General Appearance: Reddened Wound Comment #1 Sacral stage IV/unstageable pressure ulcer #2 Left heel DTI pressure ulcer #3 Right heel unstageable pressure ulcer #4 Right scapula hypergranulated stage IV pressure ulcer #5 Left scapula stage IV/unstageable pressure ulcer #6 Left medial malleolus SDTI pressure ulcer #7 Left lateral malleolus Resolving unstageable pressure ulcer #8 Left ear unstageable pressure ulcer #9 Right ear unstageable pressure ulcer #10 Left tip of 1st toe DTI pressure ulcer #11 Left lower lateral leg Resolving unstageable pressure ulcer with dry scab Recommendation -Sacral stage IV pressure Cleanse with saline, pat dry, apply hydrogel, apply calcium alginate, cover with bordered gauze daily and PRN soiled/dislodged -Right heel, Left lateral malleolus and left lower lateral leg Cleanse with saline, pat dry, apply Triad cream, cover with bordered gauze daily and PRN soiled/dislodged -Right scapula with hypergranulated pressure ulcer Cleanse with saline, pat dry, apply hydrogel, cover with 4x4, secure with bordered gauze daily and PRN soiled/dislodged -Left scapula unstageable pressure ulcer Cleanse with saline, pat dry, apply Therahoney to wound bed, apply calcium alginate, cover with bordered gauze daily and PRN soiled/dislodged -Local wound care per protocol for DTIs -Consult with Dr Whalen for hypergranulated pressure ulcer on right scapula -Turn and reposition -Keep clean and dry -Optimize nutrition -Low air loss mattress -Heel protector on both heels -Offload both heels -Assess and f/u accordingly for any changes BETTIE FRANCISCO RN Nov 05, 2016 11:31
[2016-11-05 12:00] VITALS: BP 111/59
[2016-11-05 12:05] LABS: HEMOGLOBIN A1C 6.8 % (< 6.0)
[2016-11-05] MEDS: Meropenem 500 MG in NS 55 ML IVPB SCH ×2 (15:23→21:10)
[2016-11-05] MEDS ORDERED: Tubing IV Secondary IV ONE (16:31)
[2016-11-05] MEDS ORDERED: NS 275ml ONE (16:31)
[2016-11-05 16:46] VITALS: BP 107/61
[2016-11-05] MEDS: Levemir Flexpen SUBQ SCH (18:19)
[2016-11-05 20:00] VITALS: BP 106/75
[2016-11-05] MEDS: Vancomycin 750 MG in NS 275 ML IVPB SCH (20:55)
[2016-11-05] MEDS ORDERED: Vancomycin 750mg/D5W 275ml IVPB SCH ×2 (21:00)
--- NOTE | 2016-11-05 21:17 | Consultation ---
DATE OF CONSULTATION: 11/05/2016 INFECTIOUS DISEASE CONSULTATION This consultation is in coverage for Dr. Isaac. CONSULTING PHYSICIAN: John Elizalde M.D. PRIMARY ATTENDING: Andres Wakefield M.D. REFERRING PHYSICIAN: Andres Wakefield M.D. REASON FOR CONSULTATION: Urinary tract infection, and skin and soft tissue infections. 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 According to mother, he had hematuria after traumatic Pereira placement. The patient has leukocytosis that increased. He had fever that started today with a maximum temperature of 100.4 degrees. The patient is not the source of history. PAST MEDICAL HISTORY: He has diabetes mellitus type 1 since the age of 15, hypertension, vegetative stage, and functional quadriplegia. He is status post G-tube placement. He has ventilator-dependent respiratory failure. He has anemia and multiple pressure ulcers. SOCIAL HISTORY: A [facility] resident. PHYSICAL EXAMINATION: VITAL SIGNS: Blood pressure is 108/54, pulse 115, and temperature 100.4. GENERAL APPEARANCE: Noncommunicative. HEAD AND NECK: Opens eyes, but does not follow. He is status post tracheostomy. HEART: Tachycardic. LUNGS: Clear. ABDOMEN: G-tube in place. EXTREMITIES: No edema. He has muscle atrophy. SKIN: Multiple pressure ulcers, worse in the sacral area and shoulder area. LABORATORY AND DIAGNOSTIC DATA: Urine culture grew Proteus mirabilis multidrug resistant. A wound culture from back is growing staphylococcus. WBC today 18.9, hemoglobin 9.2, hematocrit 30.5, and platelets 756,000. Sodium 135, potassium 4.9, chloride 94, bicarbonate 25, BUN 35, creatinine 0.8, and glucose is 696. Alkaline phosphatase is 1283. AST and ALT are elevated. AST is 151 and ALT is 74. Albumin is 2.4. IMPRESSION: 1. Complicated urinary tract infection with Proteus mirabilis. 2. The patient has cystitis with hematuria. 3. Elevated transaminase levels. 4. Multiple pressure ulcers, stage IV, cannot rule out infection. 5. Diabetes mellitus type 1 that is uncontrolled. 6. Ventilator-dependent respiratory failure. RECOMMENDATIONS: 1. We will change cefepime to meropenem. 2. Continue IV vancomycin. 3. We will follow up the culture and lab. At the end of my exam, I thank Dr. aWkefield for involving me in the care of this patient. John Elizalde M.D. DR: ANKIT JOB#: [id number] CC: DEAN
[2016-11-06] VITALS: BP 122/70
[2016-11-06 04:00] VITALS: BP 110/67
[2016-11-06] MEDS: Meropenem 500 MG in NS 55 ML IVPB SCH ×3 (05:11→23:17)
[2016-11-06] MEDS: carBAMazepine 200mg tab GT SCH ×3 (05:11→22:00)
[2016-11-06] MEDS: NovoLOG Insulin Flexpen SUBQ SCH ×4 (05:36→23:09)
[2016-11-06 05:44] LABS: BASOPHILS % (AUTO) 0.8 % (0.0-2.0); EOSINOPHILS % (AUTO) 3.4 % (0.0-3.0); LYMPHOCYTES % (AUTO) 10.1 % (20.0-45.0); MEAN CORPUSCULAR HEMOGLOBIN 29.7 PG (27.0-31.0); MEAN CORPUSCULAR VOLUME 96 FL (80-99); MEAN PLATELET VOLUME 5.4 FL (6.5-10.1); MONOCYTES % (AUTO) 3.6 % (1.0-10.0); NEUTROPHILS % (AUTO) 82.1 % (45.0-75.0); PLATELET COUNT 691 K/UL (150-450); RED BLOOD COUNT 3.05 M/UL (4.70-6.10); RED CELL DISTRIBUTION WIDTH 14.8 % (11.6-14.8)
[2016-11-06 06:07] LABS: ANION GAP 9 (5-15); CALCIUM 9.3 mg/dL (8.6-10.2); CARBON DIOXIDE 33 mEQ/L (20-30); CHLORIDE 109 mEQ/L (98-107); CREATININE 0.7 mg/dL (0.7-1.2); GLOMERULAR FILTRATION RATE > 60 mL/min (>60); HEMOLYSIS 0; SODIUM 151 mEQ/L (135-145)
[2016-11-06 08:00] VITALS: BP 115/60
--- NOTE | 2016-11-06 08:25 | General Progress Note ---
Assessment/Plan Assessment/Plan IMPRESSION: 1. Hematuria. 2. Urinary tract infection. 3. Evidence of sinus tachycardia. 4. Respiratory failure. 5. Chronic vegetative state. 6. History of seizure disorder. 7. leukocytosis PLAN ID evaluation appreciated hydrate with hypotonic saline ferrari monitor UO ventilator as is follow up cultures follow up labs daily dc once stable Subjective Allergies: Coded Allergies: No Known Allergies (Unverified , 07/21/16) Subjective withdrawn Objective Last 24 Hour Vital Signs Date Time Temp Pulse Resp B/P Pulse Ox O2 Delivery O2 Flow Rate FiO2 11/06/16 07:55 109 15 40 11/06/16 05:08 105 16 40 11/06/16 04:00 104 11/06/16 04:00 98.1 106 18 110/67 100 Mechanical Ventilator 40 11/06/16 04:00 40 11/06/16 02:55 115 18 40 11/06/16 00:50 110 18 40 11/06/16 00:00 107 11/06/16 00:00 97.6 108 20 122/70 100 Mechanical Ventilator 40 11/06/16 00:00 40 11/05/16 22:45 107 16 40 11/05/16 20:55 110 17 40 11/05/16 20:55 101 106/75 11/05/16 20:00 98.2 114 20 106/75 100 Mechanical Ventilator 40 11/05/16 20:00 112 11/05/16 20:00 40 11/05/16 19:20 99.8 11/05/16 18:40 103 26 40 11/05/16 16:46 105 22 40 11/05/16 16:46 99.9 111 18 107/61 99 Mechanical Ventilator 40 11/05/16 16:00 110 11/05/16 16:00 40 11/05/16 15:03 104 18 40 11/05/16 13:12 120 24 40 11/05/16 12:00 40 11/05/16 12:00 122 11/05/16 12:00 98.2 120 22 111/59 99 Mechanical Ventilator 40 11/05/16 11:00 115 23 40 11/05/16 10:29 120 108/54 11/05/16 09:23 113 20 40 Intake and Output 11/05/16 11/06/16 19:00 07:00 Intake Total 1085 ml 2010 ml Output Total 3350 ml 1625 ml Balance -2265 ml 385 ml Intake Free Water 200 ml IV Total 355 ml 1380 ml Tube Feeding 500 ml 600 ml Other 30 ml 30 ml Output Urine Total 3350 ml 1625 ml # Bowel Movements 1 1 Laboratory Tests 11/05/16 11:35: Glucose Level 713*H, Hemoglobin A1c 6.8H 11/05/16 13:30: Vancomycin Level Trough 22.9H 11/06/16 03:35: Glucose Level 390#H, White Blood Count 15.0H, Red Blood Count 3.05L, Hemoglobin 9.1L, Hematocrit 29.2L, Mean Corpuscular Volume 96, Mean Corpuscular Hemoglobin 29.7, Mean Corpuscular Hemoglobin Concent 31.0L, Red Cell Distribution Width 14.8, Platelet Count 691H, Mean Platelet Volume 5.4L, Neutrophils (%) (Auto) 82.1H, Lymphocytes (%) (Auto) 10.1L, Monocytes (%) (Auto) 3.6, Eosinophils (%) ( Auto) 3.4H, Basophils (%) (Auto) 0.8, Sodium Level 151#H, Potassium Level 4.0, Chloride Level 109H, Carbon Dioxide Level 33H, Anion Gap 9, Blood Urea Nitrogen 28H, Creatinine 0.7, Estimat Glomerular Filtration Rate > 60, Calcium Level 9.3 Height (Feet): 6 Height (Inches): 5.00 Weight (Pounds): 170 Objective GENERAL: The patient is well developed male. The patient is aphasic, poorly responsive. HEENT: Negative. NECK: Supple. LUNGS: Moderate breath sounds. occasional rhonchi CARDIAC: Tachycardic. ABDOMEN: Soft. G-tube. EXTREMITIES: No cyanosis, clubbing or edema. Ferrari catheter in place. LAURA ROSENBAUM Nov 06, 2016 08:25
[2016-11-06] MEDS: Valproic Acid 250mg/5ml Liquid GT SCH ×2 (09:06→23:06)
[2016-11-06] MEDS: Zinc Sulfate 220mg cap GT SCH (09:07)
[2016-11-06] MEDS: Pantoprazole Inj IVP SCH (09:07)
[2016-11-06] MEDS: Ascorbic Acid 500mg tab GT SCH (09:07)
[2016-11-06] MEDS: Vancomycin 750 MG in NS 275 ML IVPB SCH ×2 (09:08→23:06)
[2016-11-06] MEDS: Levemir Flexpen SUBQ SCH ×2 (09:09→23:08)
--- NOTE | 2016-11-06 10:46 | Diagnostic Imaging Report ---
Indication: SOB Technique: One view of the chest Comparison: 11/03/2016 Findings: Tracheostomy remains. Lungs and pleural spaces remain clear. The heart size is normal. There are degenerative changes of the right shoulder. No significant change Impression: No acute process
[2016-11-06 12:00] VITALS: BP 120/65
[2016-11-06] MEDS ORDERED: Lidocaine 1% Plain 30 ml INJ PRN (12:15)
[2016-11-06] MEDS ORDERED: Heparin 2000 units/Ns 1000ml INJ PRN (12:15)
[2016-11-06] MEDS ORDERED: Sodium Bicarbonate 8.4% 50ml Inj IV PRN (12:15)
[2016-11-06 16:00] VITALS: BP 108/60
--- NOTE | 2016-11-06 16:33 | Diagnostic Imaging Report ---
Indications: Needs long-term IV access Technique: Procedure performed at bedside. Ultrasound confirms patent compressible right basilic vein. Total sterile technique, including sterile probe cover and sterile gel, sterile gloves, hand hygiene, hat, mask,, sterile gown, large sterile drape, and preparation with 2% chlorhexidine utilized. Local anesthesia with 1% lidocaine. Under real-time ultrasound guidance, puncture a distal vein using 21-gauge needle, passage 0.018 guidewire, exchange for 5 Emirati peel-away sheath. 5 [place] Bard dual-lumen power PICC cut to 34 cm. It was inserted through the peel-away sheath. Peel-away sheath and guidewire removed. Catheter fixed to the skin. Both catheter ports aspirated and flushed. Patient tolerated procedure well, without immediate complication. Followup chest x-ray obtained, documents catheter tip position at the innominate venous confluence. Impression: Successful bedside placement of right arm PICC under sonographic guidance, as described above.
[2016-11-06 20:00] VITALS: BP 118/64
[2016-11-06] MEDS: Epogen (for non ESRD use) SUBQ SCH (23:17)
[2016-11-07] VITALS: BP 116/68
[2016-11-07 04:00] VITALS: BP 120/72
[2016-11-07] MEDS: Meropenem 500 MG in NS 55 ML IVPB SCH ×3 (05:03→22:22)
[2016-11-07] MEDS: carBAMazepine 200mg tab GT SCH ×3 (05:03→22:23)
[2016-11-07] MEDS: NovoLOG Insulin Flexpen SUBQ SCH ×4 (05:37→22:29)
[2016-11-07 08:00] VITALS: BP 114/71
--- NOTE | 2016-11-07 08:59 | General Progress Note ---
Assessment/Plan Assessment/Plan IMPRESSION: 1. Hematuria. 2. Urinary tract infection. 3. Evidence of sinus tachycardia. 4. Respiratory failure. 5. Chronic vegetative state. 6. History of seizure disorder. 7. leukocytosis PLAN ID evaluation appreciated wound care hydrate with hypotonic saline ferrari monitor UO ventilator as is follow up cultures follow up labs daily; pending this am dc once stable ventilator as is vital signs better Subjective Allergies: Coded Allergies: No Known Allergies (Unverified , 07/21/16) Subjective withdrawn Objective Last 24 Hour Vital Signs Date Time Temp Pulse Resp B/P Pulse Ox O2 Delivery O2 Flow Rate FiO2 11/07/16 05:00 81 14 40 11/07/16 04:00 97.2 80 18 120/72 100 Mechanical Ventilator 40 11/07/16 04:00 40 11/07/16 04:00 80 11/07/16 03:01 83 16 40 11/07/16 01:00 90 16 40 11/07/16 00:00 40 11/07/16 00:00 93 11/07/16 00:00 97.9 92 18 116/68 100 Mechanical Ventilator 40 11/06/16 23:07 96 16 40 11/06/16 23:05 95 118/64 11/06/16 20:59 102 17 40 11/06/16 20:00 98 11/06/16 20:00 97.7 95 18 118/64 100 Mechanical Ventilator 40 11/06/16 20:00 40 11/06/16 19:20 98 16 40 11/06/16 17:11 103 17 40 11/06/16 16:00 40 11/06/16 16:00 99 11/06/16 16:00 100.3 103 18 108/60 100 Mechanical Ventilator 40 11/06/16 15:16 98 14 40 11/06/16 13:16 95 17 40 11/06/16 12:00 98.1 104 18 120/65 100 Mechanical Ventilator 40 11/06/16 12:00 40 11/06/16 12:00 96 11/06/16 11:09 105 16 40 11/06/16 09:07 110 115/60 11/06/16 09:00 108 15 40 Intake and Output 11/06/16 11/07/16 19:00 07:00 Intake Total 2015 ml 2013.708 ml Output Total 600 ml 1225 ml Balance 1415 ml 788.708 ml IV Total 1355 ml 1383.708 ml Tube Feeding 600 ml 600 ml Other 60 ml 30 ml Output Urine Total 600 ml 1225 ml # Bowel Movements 1 Laboratory Tests 11/07/16 08:05: White Blood Count [Pending], Red Blood Count [Pending], Hemoglobin [Pending], Hematocrit [Pending], Mean Corpuscular Volume [Pending], Mean Corpuscular Hemoglobin [Pending], Mean Corpuscular Hemoglobin Concent [Pending], Red Cell Distribution Width [Pending], Platelet Count [Pending], Mean Platelet Volume [ Pending], Neutrophils (%) (Auto) [Pending], Lymphocytes (%) (Auto) [Pending], Monocytes (%) (Auto) [Pending], Eosinophils (%) (Auto) [Pending], Basophils (%) (Auto) [Pending], Sodium Level [Pending], Potassium Level [Pending], Chloride Level [Pending], Carbon Dioxide Level [Pending], Blood Urea Nitrogen [Pending], Creatinine [Pending], Estimat Glomerular Filtration Rate [Pending], Glucose Level [Pending], Calcium Level [Pending], Vancomycin Level Trough [Pending] Height (Feet): 6 Height (Inches): 5.00 Weight (Pounds): 170 Objective GENERAL: The patient is well developed male. The patient is aphasic, poorly responsive. HEENT: Negative. NECK: Supple. LUNGS: Moderate breath sounds. occasional rhonchi CARDIAC: Tachycardic. ABDOMEN: Soft. G-tube. EXTREMITIES: No cyanosis, clubbing or edema. Ferrari catheter in place. multiple decubiti LAURA ROSENBAUM Nov 07, 2016 08:59
[2016-11-07] MEDS: Valproic Acid 250mg/5ml Liquid GT SCH ×2 (09:04→22:23)
[2016-11-07] MEDS: Ascorbic Acid 500mg tab GT SCH (09:07)
[2016-11-07] MEDS: Pantoprazole Inj IVP SCH (09:07)
[2016-11-07] MEDS: Zinc Sulfate 220mg cap GT SCH (09:07)
[2016-11-07] MEDS: Levemir Flexpen SUBQ SCH ×2 (09:08→22:28)
[2016-11-07 09:09] LABS: BASOPHILS % (AUTO) 0.5 % (0.0-2.0); EOSINOPHILS % (AUTO) 7.4 % (0.0-3.0); LYMPHOCYTES % (AUTO) 11.4 % (20.0-45.0); MEAN CORPUSCULAR HEMOGLOBIN 29.2 PG (27.0-31.0); MEAN CORPUSCULAR HGB CONC 30.3 G/DL (32.0-36.0); MEAN CORPUSCULAR VOLUME 96 FL (80-99); MEAN PLATELET VOLUME 5.3 FL (6.5-10.1); MONOCYTES % (AUTO) 5.7 % (1.0-10.0); PLATELET COUNT 627 K/UL (150-450); RED BLOOD COUNT 3.03 M/UL (4.70-6.10); RED CELL DISTRIBUTION WIDTH 14.6 % (11.6-14.8); WHITE BLOOD COUNT 13.2 K/UL (4.8-10.8)
[2016-11-07 09:23] LABS: ANION GAP 8 (5-15); CARBON DIOXIDE 34 mEQ/L (20-30); CHLORIDE 110 mEQ/L (98-107); CREATININE 0.4 mg/dL (0.7-1.2); GLOMERULAR FILTRATION RATE > 60 mL/min (>60); HEMOLYSIS 0; POTASSIUM 4.3 mEQ/L (3.4-4.9); SODIUM 152 mEQ/L (135-145)
[2016-11-07] MEDS: Vancomycin 750 MG in NS 275 ML IVPB SCH (10:33)
[2016-11-07 12:00] VITALS: BP 115/71
--- NOTE | 2016-11-07 12:09 | Infectious Diseases Prog Note ---
Assessment/Plan Assessment/Plan antibiotics : vancomycin iv, meropenem A 1. proteus UTI 2. DM 3. respiratory failure 4. HTN P 1. continue meropenem 2. d/c iv vancomycin 3. will follow up cultures Subjective ROS Limited/Unobtainable: Yes Allergies: Coded Allergies: No Known Allergies (Unverified , 07/21/16) Objective Vital Signs Last 24 Hour Vital Signs Date Time Temp Pulse Resp B/P Pulse Ox O2 Delivery O2 Flow Rate FiO2 11/07/16 11:07 70 16 40 11/07/16 09:10 72 14 40 11/07/16 09:06 82 114/71 11/07/16 08:00 95.7 82 14 114/71 100 Mechanical Ventilator 40 11/07/16 08:00 40 11/07/16 08:00 77 11/07/16 07:10 82 15 40 11/07/16 05:00 81 14 40 11/07/16 04:00 97.2 80 18 120/72 100 Mechanical Ventilator 40 11/07/16 04:00 40 11/07/16 04:00 80 11/07/16 03:01 83 16 40 11/07/16 01:00 90 16 40 11/07/16 00:00 40 11/07/16 00:00 93 11/07/16 00:00 97.9 92 18 116/68 100 Mechanical Ventilator 40 11/06/16 23:07 96 16 40 11/06/16 23:05 95 118/64 11/06/16 20:59 102 17 40 11/06/16 20:00 98 11/06/16 20:00 97.7 95 18 118/64 100 Mechanical Ventilator 40 11/06/16 20:00 40 11/06/16 19:20 98 16 40 11/06/16 17:11 103 17 40 11/06/16 16:00 40 11/06/16 16:00 99 11/06/16 16:00 100.3 103 18 108/60 100 Mechanical Ventilator 40 11/06/16 15:16 98 14 40 11/06/16 13:16 95 17 40 Height (Feet): 6 Height (Inches): 5.00 Weight (Pounds): 170 HEENT: status post trach Respiratory/Chest: lungs clear Cardiovascular: normal rate, regular rhythm, no gallop/murmur Abdomen: soft, non tender, other - GT Extremities: no edema, other - right arm PICC Laboratory Tests Test 11/07/16 08:05 White Blood Count 13.2 K/UL (4.8-10.8) H Red Blood Count 3.03 M/UL (4.70-6.10) L Hemoglobin 8.8 G/DL (14.2-18.0) L Hematocrit 29.2 % (42.0-52.0) L Mean Corpuscular Volume 96 FL (80-99) Mean Corpuscular Hemoglobin 29.2 PG (27.0-31.0) Mean Corpuscular Hemoglobin Concent 30.3 G/DL (32.0-36.0) L Red Cell Distribution Width 14.6 % (11.6-14.8) Platelet Count 627 K/UL (150-450) H Mean Platelet Volume 5.3 FL (6.5-10.1) L Neutrophils (%) (Auto) 75.0 % (45.0-75.0) Lymphocytes (%) (Auto) 11.4 % (20.0-45.0) L Monocytes (%) (Auto) 5.7 % (1.0-10.0) Eosinophils (%) (Auto) 7.4 % (0.0-3.0) H Basophils (%) (Auto) 0.5 % (0.0-2.0) Sodium Level 152 mEQ/L (135-145) H Potassium Level 4.3 mEQ/L (3.4-4.9) Chloride Level 110 mEQ/L (98-107) H Carbon Dioxide Level 34 mEQ/L (20-30) H Anion Gap 8 (5-15) Blood Urea Nitrogen 19 mg/dL (7-23) Creatinine 0.4 mg/dL (0.7-1.2) L Estimat Glomerular Filtration Rate > 60 mL/min (>60) Glucose Level 263 mg/dL (74-106) #H Calcium Level 9.0 mg/dL (8.6-10.2) Vancomycin Level Trough 9.6 ug/mL (5.0-12.0) TONJA HALL Nov 07, 2016 12:08
[2016-11-07 16:00] VITALS: BP 105/60
[2016-11-07] MEDS ORDERED: 1/2 NS 1000ml IV ONE (17:38)
[2016-11-07 20:00] VITALS: BP 117/72
[2016-11-08 00:40] VITALS: BP 106/68
[2016-11-08 04:00] VITALS: BP 117/74
[2016-11-08] MEDS: Meropenem 500 MG in NS 55 ML IVPB SCH ×3 (06:01→23:00)
[2016-11-08] MEDS: carBAMazepine 200mg tab GT SCH ×3 (06:01→21:31)
[2016-11-08] MEDS: NovoLOG Insulin Flexpen SUBQ SCH ×4 (06:05→21:42)
--- NOTE | 2016-11-08 07:01 | Infectious Diseases Prog Note ---
Assessment/Plan Assessment/Plan A 1. Proteus UTI 2. DM 3. respiratory failure 4. HPN P 1. continue meropenem Subjective ROS Limited/Unobtainable: Yes Allergies: Coded Allergies: No Known Allergies (Unverified , 07/21/16) Objective Vital Signs Last 24 Hour Vital Signs Date Time Temp Pulse Resp B/P Pulse Ox O2 Delivery O2 Flow Rate FiO2 11/08/16 05:28 73 15 40 11/08/16 04:00 40 11/08/16 04:00 73 11/08/16 04:00 97.2 74 14 117/74 99 Mechanical Ventilator 40 11/08/16 02:44 71 14 40 11/08/16 01:18 74 14 40 11/08/16 00:40 97.4 72 14 106/68 97 Mechanical Ventilator 40 11/08/16 00:00 72 11/08/16 00:00 40 11/07/16 22:53 85 16 40 11/07/16 22:22 79 117/72 11/07/16 22:00 79 11/07/16 20:45 83 17 40 11/07/16 20:00 97.6 79 15 117/72 100 Mechanical Ventilator 40 11/07/16 20:00 40 11/07/16 19:49 80 17 40 11/07/16 17:00 76 16 40 11/07/16 16:00 96.8 79 20 105/60 97 Mechanical Ventilator 40 11/07/16 16:00 79 11/07/16 16:00 40 11/07/16 13:10 73 15 40 11/07/16 12:00 40 11/07/16 12:00 96.8 73 14 115/71 97 Mechanical Ventilator 40 11/07/16 12:00 72 11/07/16 11:07 70 16 40 11/07/16 09:10 72 14 40 11/07/16 09:06 82 114/71 11/07/16 08:00 95.7 82 14 114/71 100 Mechanical Ventilator 40 11/07/16 08:00 40 11/07/16 08:00 77 11/07/16 07:10 82 15 40 Height (Feet): 6 Height (Inches): 5.00 Weight (Pounds): 170 General Appearance: no acute distress HEENT: status post trach Respiratory/Chest: lungs clear, other - on ventilator Cardiovascular: normal rate Abdomen: soft, non tender, other - GT feeding Extremities: no edema Neurologic/Psychiatric: other - opens eyes Laboratory Tests Test 11/07/16 08:05 White Blood Count 13.2 K/UL (4.8-10.8) H Red Blood Count 3.03 M/UL (4.70-6.10) L Hemoglobin 8.8 G/DL (14.2-18.0) L Hematocrit 29.2 % (42.0-52.0) L Mean Corpuscular Volume 96 FL (80-99) Mean Corpuscular Hemoglobin 29.2 PG (27.0-31.0) Mean Corpuscular Hemoglobin Concent 30.3 G/DL (32.0-36.0) L Red Cell Distribution Width 14.6 % (11.6-14.8) Platelet Count 627 K/UL (150-450) H Mean Platelet Volume 5.3 FL (6.5-10.1) L Neutrophils (%) (Auto) 75.0 % (45.0-75.0) Lymphocytes (%) (Auto) 11.4 % (20.0-45.0) L Monocytes (%) (Auto) 5.7 % (1.0-10.0) Eosinophils (%) (Auto) 7.4 % (0.0-3.0) H Basophils (%) (Auto) 0.5 % (0.0-2.0) Sodium Level 152 mEQ/L (135-145) H Potassium Level 4.3 mEQ/L (3.4-4.9) Chloride Level 110 mEQ/L (98-107) H Carbon Dioxide Level 34 mEQ/L (20-30) H Anion Gap 8 (5-15) Blood Urea Nitrogen 19 mg/dL (7-23) Creatinine 0.4 mg/dL (0.7-1.2) L Estimat Glomerular Filtration Rate > 60 mL/min (>60) Glucose Level 263 mg/dL (74-106) #H Calcium Level 9.0 mg/dL (8.6-10.2) Vancomycin Level Trough 9.6 ug/mL (5.0-12.0) Current Medications Medications (Trade) Dose Ordered Sig/Gulilermo Route PRN Reason Start Time Stop Time Status Last Admin Dose Admin Acetaminophen (Tylenol) 650 mg Q4H PRN ORAL Mild Pain/Temp > 100.5 11/04/16 16:30 12/04/16 16:29 11/05/16 18:20 Acetaminophen/ Hydrocodone Bitart (Munith 5/325) 1 tab Q4H PRN ORAL For Pain 11/04/16 01:45 11/11/16 01:44 11/05/16 03:57 Ascorbic Acid (Vitamin C) 500 mg DAILY GT 11/04/16 09:00 12/04/16 08:59 11/07/16 09:07 Bisacodyl (Dulcolax) 10 mg PRN PRN RECTAL Constipation 11/04/16 01:45 12/04/16 01:44 Carbamazepine (TEGretol) 500 mg Q8HR GT 11/04/16 22:00 12/04/16 21:59 11/08/16 06:01 Dextrose STAT PRN IV Hypoglycemia 11/05/16 08:15 12/05/16 08:14 Epoetin Grabiel (Procrit (for non ESRD use)) 10,000 units WED-WED-WED SUBQ 11/04/16 21:00 12/04/16 20:59 11/06/16 23:17 Gemfibrozil (Lopid) 600 mg BID GT 11/04/16 09:00 12/04/16 08:59 11/07/16 18:14 Insulin Aspart (NovoLOG) BEFORE MEALS AND HS SUBQ 11/05/16 11:30 12/05/16 11:29 11/08/16 06:05 Insulin Detemir 10 units 10 units Q12HR SUBQ 11/05/16 16:30 12/05/16 16:29 11/07/16 22:28 Ipratropium [place] (Atrovent) 500 mcg Q6HRT PRN HHN Shortness of Breath 11/04/16 01:45 11/09/16 01:44 Lorazepam (Ativan) 1 mg Q4H PRN GT For Anxiety 11/04/16 01:45 11/11/16 01:44 11/04/16 16:42 Magnesium Hydroxide (Mom) 30 ml DAILY PRN GT Constipation 11/04/16 01:45 12/04/16 01:44 Meropenem/Sodium Chloride (Merrem/Sodium Chloride) 55 ml @ 110 mls/hr EVERY 8 HOURS IVPB 11/05/16 14:00 11/10/16 13:59 11/08/16 06:01 Metoprolol Tartrate (Lopressor) 100 mg EVERY 12 HOURS GT 11/04/16 09:00 12/04/16 08:59 11/07/16 22:22 Midodrine (Pro-Amatine) 2.5 mg THREE TIMES A DAY GT 11/04/16 09:00 12/04/16 08:59 11/07/16 18:14 Pantoprazole (Protonix) 40 mg DAILY IVP 11/04/16 09:00 12/04/16 08:59 11/07/16 09:07 Sodium Chloride (0.45% NS 1000ml) 1,000 ml @ 100 mls/hr Q10H IV 11/06/16 08:30 12/06/16 08:29 11/08/16 04:09 Valproic Acid (Depakene) 750 mg EVERY 12 HOURS GT 11/04/16 09:00 12/04/16 08:59 11/07/16 22:23 Zinc Sulfate (Zinc Sulfate) 220 mg DAILY GT 11/04/16 09:00 12/04/16 08:59 11/07/16 09:07 ADRIENNE FERRELL Nov 08, 2016 07:01
[2016-11-08 08:00] VITALS: BP 112/80
[2016-11-08] MEDS ORDERED: 1/2 NS 1000ml IV ONE (08:38)
[2016-11-08] MEDS ORDERED: Tubing IV Secondary IV ONE (08:38)
--- NOTE | 2016-11-08 09:18 | General Progress Note ---
Assessment/Plan Assessment/Plan IMPRESSION: 1. Hematuria. 2. Urinary tract infection. 3. Evidence of sinus tachycardia. 4. Respiratory failure. 5. Chronic vegetative state. 6. History of seizure disorder. 7. leukocytosis PLAN ID evaluation noted on Meropenem wound care hydrate with hypotonic saline ferrari monitor UO ventilator as is follow up cultures follow up labs daily; dc once labs improved may need transfusion ventilator as is Subjective Allergies: Coded Allergies: No Known Allergies (Unverified , 07/21/16) Subjective withdrawn Objective Last 24 Hour Vital Signs Date Time Temp Pulse Resp B/P Pulse Ox O2 Delivery O2 Flow Rate FiO2 11/08/16 08:13 75 11/08/16 08:13 40 11/08/16 08:00 96.6 73 17 112/80 100 Mechanical Ventilator 40 11/08/16 07:15 70 15 40 11/08/16 05:28 73 15 40 11/08/16 04:00 40 11/08/16 04:00 73 11/08/16 04:00 97.2 74 14 117/74 99 Mechanical Ventilator 40 11/08/16 02:44 71 14 40 11/08/16 01:18 74 14 40 11/08/16 00:40 97.4 72 14 106/68 97 Mechanical Ventilator 40 11/08/16 00:00 72 11/08/16 00:00 40 11/07/16 22:53 85 16 40 11/07/16 22:22 79 117/72 11/07/16 22:00 79 11/07/16 20:45 83 17 40 11/07/16 20:00 97.6 79 15 117/72 100 Mechanical Ventilator 40 11/07/16 20:00 40 11/07/16 19:49 80 17 40 11/07/16 17:00 76 16 40 11/07/16 16:00 96.8 79 20 105/60 97 Mechanical Ventilator 40 11/07/16 16:00 79 11/07/16 16:00 40 11/07/16 13:10 73 15 40 11/07/16 12:00 40 11/07/16 12:00 96.8 73 14 115/71 97 Mechanical Ventilator 40 11/07/16 12:00 72 11/07/16 11:07 70 16 40 Intake and Output 11/07/16 11/08/16 19:00 07:00 Intake Total 1610 ml 1885 ml Output Total 560 ml 2000 ml Balance 1050 ml -115 ml Intake Free Water 60 ml 120 ml IV Total 830 ml 1155 ml Tube Feeding 600 ml 550 ml Other 120 ml 60 ml Output Urine Total 560 ml 2000 ml # Bowel Movements 1 Labs Test 11/05/16 11:35 11/05/16 13:30 11/06/16 03:35 11/07/16 08:05 Glucose Level 713 mg/dL (74-106) 390 mg/dL (74-106) 263 mg/dL (74-106) Hemoglobin A1c 6.8 % (< 6.0) Vancomycin Level Trough 22.9 ug/mL (5.0-12.0) 9.6 ug/mL (5.0-12.0) White Blood Count 15.0 K/UL (4.8-10.8) 13.2 K/UL (4.8-10.8) Red Blood Count 3.05 M/UL (4.70-6.10) 3.03 M/UL (4.70-6.10) Hemoglobin 9.1 G/DL (14.2-18.0) 8.8 G/DL (14.2-18.0) Hematocrit 29.2 % (42.0-52.0) 29.2 % (42.0-52.0) Mean Corpuscular Volume 96 FL (80-99) 96 FL (80-99) Mean Corpuscular Hemoglobin 29.7 PG (27.0-31.0) 29.2 PG (27.0-31.0) Mean Corpuscular Hemoglobin Concent 31.0 G/DL (32.0-36.0) 30.3 G/DL (32.0-36.0) Red Cell Distribution Width 14.8 % (11.6-14.8) 14.6 % (11.6-14.8) Platelet Count 691 K/UL (150-450) 627 K/UL (150-450) Mean Platelet Volume 5.4 FL (6.5-10.1) 5.3 FL (6.5-10.1) Neutrophils (%) (Auto) 82.1 % (45.0-75.0) 75.0 % (45.0-75.0) Lymphocytes (%) (Auto) 10.1 % (20.0-45.0) 11.4 % (20.0-45.0) Monocytes (%) (Auto) 3.6 % (1.0-10.0) 5.7 % (1.0-10.0) Eosinophils (%) (Auto) 3.4 % (0.0-3.0) 7.4 % (0.0-3.0) Basophils (%) (Auto) 0.8 % (0.0-2.0) 0.5 % (0.0-2.0) Sodium Level 151 mEQ/L (135-145) 152 mEQ/L (135-145) Potassium Level 4.0 mEQ/L (3.4-4.9) 4.3 mEQ/L (3.4-4.9) Chloride Level 109 mEQ/L (98-107) 110 mEQ/L (98-107) Carbon Dioxide Level 33 mEQ/L (20-30) 34 mEQ/L (20-30) Anion Gap 9 (5-15) 8 (5-15) Blood Urea Nitrogen 28 mg/dL (7-23) 19 mg/dL (7-23) Creatinine 0.7 mg/dL (0.7-1.2) 0.4 mg/dL (0.7-1.2) Estimat Glomerular Filtration Rate > 60 mL/min (>60) > 60 mL/min (>60) Calcium Level 9.3 mg/dL (8.6-10.2) 9.0 mg/dL (8.6-10.2) Height (Feet): 6 Height (Inches): 5.00 Weight (Pounds): 170 Objective GENERAL: The patient is well developed male. The patient is aphasic, poorly responsive. HEENT: Negative. NECK: Supple. LUNGS: Moderate breath sounds. occasional rhonchi CARDIAC: RRR ABDOMEN: Soft. G-tube. EXTREMITIES: No cyanosis, clubbing or edema. Ferrari catheter in place. multiple decubiti LAURA ROSENBAUM Nov 08, 2016 09:18
[2016-11-08 10:27] LABS: BASOPHILS % (AUTO) 0.5 % (0.0-2.0); LYMPHOCYTES % (AUTO) 18.5 % (20.0-45.0); MEAN CORPUSCULAR HEMOGLOBIN 28.8 PG (27.0-31.0); MEAN CORPUSCULAR HGB CONC 30.4 G/DL (32.0-36.0); MEAN CORPUSCULAR VOLUME 95 FL (80-99); MEAN PLATELET VOLUME 5.4 FL (6.5-10.1); MONOCYTES % (AUTO) 4.4 % (1.0-10.0); NEUTROPHILS % (AUTO) 64.6 % (45.0-75.0); PLATELET COUNT 594 K/UL (150-450); RED BLOOD COUNT 3.13 M/UL (4.70-6.10); RED CELL DISTRIBUTION WIDTH 14.7 % (11.6-14.8); WHITE BLOOD COUNT 9.4 K/UL (4.8-10.8)
[2016-11-08 10:44] LABS: ANION GAP 10 (5-15); CARBON DIOXIDE 31 mEQ/L (20-30); CHLORIDE 101 mEQ/L (98-107); CREATININE 0.4 mg/dL (0.7-1.2); GLOMERULAR FILTRATION RATE > 60 mL/min (>60); HEMOLYSIS 0; POTASSIUM 4.5 mEQ/L (3.4-4.9); SODIUM 142 mEQ/L (135-145)
[2016-11-08] MEDS: Pantoprazole Inj IVP SCH (11:11)
[2016-11-08] MEDS: Zinc Sulfate 220mg cap GT SCH (11:11)
[2016-11-08] MEDS: Valproic Acid 250mg/5ml Liquid GT SCH ×2 (11:11→21:31)
[2016-11-08] MEDS: Levemir Flexpen SUBQ SCH ×2 (11:12→21:42)
[2016-11-08] MEDS: Ascorbic Acid 500mg tab GT SCH (11:12)
[2016-11-08 11:50] VITALS: BP 121/80
[2016-11-08 16:00] VITALS: BP 118/74
[2016-11-08 20:00] VITALS: BP 120/79
[2016-11-09] VITALS: BP 116/75
[2016-11-09 04:00] VITALS: BP 131/90
[2016-11-09 05:15] LABS: BASOPHILS % (AUTO) 0.9 % (0.0-2.0); EOSINOPHILS % (AUTO) 10.1 % (0.0-3.0); LYMPHOCYTES % (AUTO) 20.9 % (20.0-45.0); MEAN CORPUSCULAR HEMOGLOBIN 28.9 PG (27.0-31.0); MEAN CORPUSCULAR HGB CONC 30.9 G/DL (32.0-36.0); MEAN CORPUSCULAR VOLUME 94 FL (80-99); MEAN PLATELET VOLUME 5.6 FL (6.5-10.1); MONOCYTES % (AUTO) 2.4 % (1.0-10.0); NEUTROPHILS % (AUTO) 65.8 % (45.0-75.0); PLATELET COUNT 593 K/UL (150-450); RED BLOOD COUNT 3.04 M/UL (4.70-6.10); RED CELL DISTRIBUTION WIDTH 14.4 % (11.6-14.8); WHITE BLOOD COUNT 9.6 K/UL (4.8-10.8)
[2016-11-09 05:25] LABS: ANION GAP 10 (5-15); CARBON DIOXIDE 31 mEQ/L (20-30); CHLORIDE 96 mEQ/L (98-107); CREATININE 0.4 mg/dL (0.7-1.2); GLOMERULAR FILTRATION RATE > 60 mL/min (>60); HEMOLYSIS 0; POTASSIUM 4.6 mEQ/L (3.4-4.9); SODIUM 137 mEQ/L (135-145)
[2016-11-09] MEDS: Meropenem 500 MG in NS 55 ML IVPB SCH (06:04)
[2016-11-09] MEDS: NovoLOG Insulin Flexpen SUBQ SCH ×2 (06:24→12:16)
[2016-11-09] MEDS: carBAMazepine 200mg tab GT SCH ×2 (06:25→13:27)
[2016-11-09 08:00] VITALS: BP 164/104
[2016-11-09] MEDS: Valproic Acid 250mg/5ml Liquid GT SCH (08:06)
[2016-11-09] MEDS: Ascorbic Acid 500mg tab GT SCH (08:07)
[2016-11-09] MEDS: Zinc Sulfate 220mg cap GT SCH (08:07)
[2016-11-09] MEDS: LORazepam 1mg tab GT PRN (08:07)
[2016-11-09] MEDS: Pantoprazole Inj IVP SCH (08:08)
--- NOTE | 2016-11-09 08:36 | General Progress Note ---
Assessment/Plan Assessment/Plan IMPRESSION: 1. Hematuria. 2. Urinary tract infection. 3. Evidence of sinus tachycardia. 4. Respiratory failure. 5. Chronic vegetative state. 6. History of seizure disorder. 7. leukocytosis PLAN ID evaluation appreciated on Meropenem wound care dc fluids ferrari monitor UO ventilator as is PICC follow up cultures dc to snf Subjective Allergies: Coded Allergies: No Known Allergies (Unverified , 07/21/16) Subjective withdrawn but comfortable Objective Last 24 Hour Vital Signs Date Time Temp Pulse Resp B/P Pulse Ox O2 Delivery O2 Flow Rate FiO2 11/09/16 08:07 99 164/80 11/09/16 06:33 91 18 40 11/09/16 04:55 83 18 40 11/09/16 04:00 98.4 94 16 131/90 100 Mechanical Ventilator 40 11/09/16 04:00 10.0 40 11/09/16 04:00 81 11/09/16 03:47 81 11/09/16 03:40 76 16 40 11/09/16 00:53 77 16 40 11/09/16 00:31 87 11/09/16 00:00 98.2 75 18 116/75 100 Mechanical Ventilator 8.0 40 11/09/16 00:00 10.0 40 11/08/16 23:05 75 17 40 11/08/16 21:32 78 120/79 11/08/16 20:53 80 14 40 11/08/16 20:00 10.0 40 11/08/16 20:00 97.9 78 16 120/79 100 Mechanical Ventilator 40 11/08/16 19:13 77 11/08/16 18:38 80 18 40 11/08/16 17:53 40 11/08/16 17:53 79 11/08/16 16:57 76 16 40 11/08/16 16:00 98.4 75 19 118/74 100 Mechanical Ventilator 40 11/08/16 15:00 74 18 40 11/08/16 12:47 66 16 40 11/08/16 12:39 40 11/08/16 12:39 77 11/08/16 11:50 96.8 72 15 121/80 100 Mechanical Ventilator 40 11/08/16 11:24 82 17 40 11/08/16 11:11 74 112/80 11/08/16 09:29 74 15 40 Intake and Output 11/08/16 11/09/16 19:00 07:00 Intake Total 1110 ml 2565 ml Output Total 2600 ml 900 ml Balance -1490 ml 1665 ml Intake Free Water 200 ml IV Total 310 ml 1965 ml Tube Feeding 600 ml 600 ml Output Urine Total 2600 ml 900 ml Laboratory Tests 11/08/16 10:00: White Blood Count 9.4, Red Blood Count 3.13L, Hemoglobin 9.0L, Hematocrit 29.7L , Mean Corpuscular Volume 95, Mean Corpuscular Hemoglobin 28.8, Mean Corpuscular Hemoglobin Concent 30.4L, Red Cell Distribution Width 14.7, Platelet Count 594H, Mean Platelet Volume 5.4L, Neutrophils (%) (Auto) 64.6, Lymphocytes (%) (Auto) 18.5L, Monocytes (%) (Auto) 4.4, Eosinophils (%) (Auto) 12.0H, Basophils (%) (Auto) 0.5, Sodium Level 142, Potassium Level 4.5, Chloride Level 101, Carbon Dioxide Level 31H, Anion Gap 10, Blood Urea Nitrogen 16, Creatinine 0.4L, Estimat Glomerular Filtration Rate > 60, Glucose Level 158# H, Calcium Level 9.0 11/09/16 03:30: White Blood Count 9.6, Red Blood Count 3.04L, Hemoglobin 8.8L, Hematocrit 28.5L , Mean Corpuscular Volume 94, Mean Corpuscular Hemoglobin 28.9, Mean Corpuscular Hemoglobin Concent 30.9L, Red Cell Distribution Width 14.4, Platelet Count 593H, Mean Platelet Volume 5.6L, Neutrophils (%) (Auto) 65.8, Lymphocytes (%) (Auto) 20.9, Monocytes (%) (Auto) 2.4, Eosinophils (%) (Auto) 10.1H, Basophils (%) (Auto) 0.9, Sodium Level 137, Potassium Level 4.6, Chloride Level 96L, Carbon Dioxide Level 31H, Anion Gap 10, Blood Urea Nitrogen 14, Creatinine 0.4L, Estimat Glomerular Filtration Rate > 60, Glucose Level 269# H, Calcium Level 9.0 Height (Feet): 6 Height (Inches): 5.00 Weight (Pounds): 170 Objective GENERAL: The patient is well developed male. The patient is aphasic, poorly responsive. HEENT: Negative. NECK: Supple. LUNGS: Moderate breath sounds. occasional rhonchi CARDIAC: RRR without MRG ABDOMEN: Soft. G-tube. EXTREMITIES: No cyanosis, clubbing or edema. Ferrari catheter in place. multiple decubiti LAURA ROSENBAUM Nov 09, 2016 08:36
[2016-11-09] MEDS: Norco 5mg/325mg tab ORAL PRN (08:45)
[2016-11-09] MEDS ORDERED: Levemir Flexpen SUBQ SCH (09:00)
[2016-11-09] MEDS ORDERED: 1/2 NS 1000ml IV ONE (10:14)
--- NOTE | 2016-11-09 11:29 | Wound Nurse Progress Note ---
Wound RN Progress Note Wound Consult Recieved wound care consult, wound sites reassessed , no new findings noted, No deterioration in wounds present. continue recommend local wound care noted effective, patient was cleaned , repositioned, all dressings remain dry and intact. JUDI RAMOS Nov 09, 2016 11:29
--- NOTE | 2016-11-09 11:34 | Infectious Diseases Prog Note ---
Assessment/Plan Assessment/Plan antibiotics : meropenem A 1. proteus UTI s/p rx 2. DM 3. respiratory failure 4. HTN 5. rectal VRE colonization P 1. d/c meropenem 2. observe off antibiotics 3. will follow up cultures Subjective ROS Limited/Unobtainable: Yes Allergies: Coded Allergies: No Known Allergies (Unverified , 07/21/16) Objective Vital Signs Last 24 Hour Vital Signs Date Time Temp Pulse Resp B/P Pulse Ox O2 Delivery O2 Flow Rate FiO2 11/09/16 10:44 64 18 40 11/09/16 09:44 98.7 11/09/16 09:07 98.7 11/09/16 08:31 61 18 40 11/09/16 08:07 99 164/80 11/09/16 08:00 130 11/09/16 08:00 98.2 120 40 164/104 99 Mechanical Ventilator 40 11/09/16 08:00 40 11/09/16 06:33 91 18 40 11/09/16 04:55 83 18 40 11/09/16 04:00 98.4 94 16 131/90 100 Mechanical Ventilator 40 11/09/16 04:00 10.0 40 11/09/16 04:00 81 11/09/16 03:47 81 11/09/16 03:40 76 16 40 11/09/16 00:53 77 16 40 11/09/16 00:31 87 11/09/16 00:00 98.2 75 18 116/75 100 Mechanical Ventilator 8.0 40 11/09/16 00:00 10.0 40 11/08/16 23:05 75 17 40 11/08/16 21:32 78 120/79 11/08/16 20:53 80 14 40 11/08/16 20:00 10.0 40 11/08/16 20:00 97.9 78 16 120/79 100 Mechanical Ventilator 40 11/08/16 19:13 77 11/08/16 18:38 80 18 40 11/08/16 17:53 40 11/08/16 17:53 79 11/08/16 16:57 76 16 40 11/08/16 16:00 98.4 75 19 118/74 100 Mechanical Ventilator 40 11/08/16 15:00 74 18 40 11/08/16 12:47 66 16 40 11/08/16 12:39 40 4/9/17 12:39 77 11/08/16 11:50 96.8 72 15 121/80 100 Mechanical Ventilator 40 Height (Feet): 6 Height (Inches): 5.00 Weight (Pounds): 170 Respiratory/Chest: lungs clear Cardiovascular: normal rate, regular rhythm, no gallop/murmur Abdomen: soft, non tender, other - GT Extremities: no edema, other - right arm PICC Laboratory Tests Test 11/09/16 03:30 White Blood Count 9.6 K/UL (4.8-10.8) Red Blood Count 3.04 M/UL (4.70-6.10) L Hemoglobin 8.8 G/DL (14.2-18.0) L Hematocrit 28.5 % (42.0-52.0) L Mean Corpuscular Volume 94 FL (80-99) Mean Corpuscular Hemoglobin 28.9 PG (27.0-31.0) Mean Corpuscular Hemoglobin Concent 30.9 G/DL (32.0-36.0) L Red Cell Distribution Width 14.4 % (11.6-14.8) Platelet Count 593 K/UL (150-450) H Mean Platelet Volume 5.6 FL (6.5-10.1) L Neutrophils (%) (Auto) 65.8 % (45.0-75.0) Lymphocytes (%) (Auto) 20.9 % (20.0-45.0) Monocytes (%) (Auto) 2.4 % (1.0-10.0) Eosinophils (%) (Auto) 10.1 % (0.0-3.0) H Basophils (%) (Auto) 0.9 % (0.0-2.0) Sodium Level 137 mEQ/L (135-145) Potassium Level 4.6 mEQ/L (3.4-4.9) Chloride Level 96 mEQ/L (98-107) L Carbon Dioxide Level 31 mEQ/L (20-30) H Anion Gap 10 (5-15) Blood Urea Nitrogen 14 mg/dL (7-23) Creatinine 0.4 mg/dL (0.7-1.2) L Estimat Glomerular Filtration Rate > 60 mL/min (>60) Glucose Level 269 mg/dL (74-106) #H Calcium Level 9.0 mg/dL (8.6-10.2) TONJA HALL Nov 09, 2016 11:34
[2016-11-09 12:00] VITALS: BP 118/81
[2016-11-09] MEDS ORDERED: Meropenem 500 MG in NS 55 ML IVPB SCH (14:00)
--- NOTE | 2016-11-10 12:35 | Discharge Summary ---
Discharge Summary Hospital Course Date of Admission Nov 03, 2016 at 21:35 Date of Discharge Nov 09, 2016 at 14:57 Admitting Diagnosis urinary tract infection HPI Miki Whitman is a 41 year old male who was admitted on Nov 03, 2016 at 21:35 for Urinary Tract Infection Hospital Course dc summary #[id number] Discharge Medications Continued Medications: Acetaminophen 160MG/5ML* (Acetaminophen*) 160 Mg/5 Ml Elixir 5 ML GT THREE TIMES A DAY PRN for Fever/Headache/Mild Pain, ML 0 Refills Bisacodyl (Dulcolax) 10 Mg Supp.rect 10 MG RC PRN PRN for Constipation, SUPP Carbamazepine (Tegretol*) 200 Mg Tablet 400 MG GT TID, TAB Cran/Vitc/Mannose/Inulin/Brom (Uti-Stat Liquid) 3,875 Mg/30 Ml Liquid 3875 MG GT BID, ML Digoxin* (Digoxin*) 0.25 Mg/5 Ml Solution 0.25 MG GT DAILY, ML Docusate Sodium* (Docusate Sodium*) 100 Mg Capsule 100 MG GT TWICE A DAY, CAP Epoetin Grabiel (Epogen) 20,000 Unit/1 Ml Vial 90833 UNIT SUBQ THREE TIMES A WEEK, VIAL Gemfibrozil (Gemfibrozil*) 600 Mg Tablet 600 MG GT BID, TAB 0 Refills Hydrocodone Bit/Acetaminophen 5-325* (Ephrata 5-325*) 1 Each Tablet 1 TAB ORAL Q4H PRN for For Pain, TAB 0 Refills Insulin Detemir (Levemir) 100 Unit/1 Ml Vial 15 UNITS SUBQ BEDTIME, VIAL Ipratropium Valdez 0.5MG/2.5ML (Ipratropium Valdez 0.5MG/2.5ML) 0.2 Mg/1 Ml Solution 0.5 MG HHN Q6H PRN for Shortness of Breath, #28 EA Lactulose (Lactulose*) 20 Gm/30 Ml Solution 30 ML ORAL, ML 0 Refills Lorazepam* (Ativan*) 1 Mg Tablet 1 MG GT PRN, TAB Magnesium Hydroxide* (Milk Of Magnesia*) 400 Mg/5 Ml Oral.susp 30 ML GT DAILY PRN for Constipation, ML Metoclopramide Hcl* (Reglan*) 5 Mg Tablet 10 MG GT EVERY 6 HOURS, TAB Metoprolol Tartrate* (Metoprolol Tartrate*) 100 Mg Tablet 100 MG GT EVERY 12 HOURS, TAB Multivitamin Liquid* (Multi-Delyn*) 237 Ml Liquid 15 ML GT DAILY, ML Na Phos,M-B/Na Phos,Di-Ba* (Fleet Enema*) 133 Ml Enema 133 ML RECTAL DAILY, ML 0 Refills Pantoprazole* (Pantoprazole*) 40 Mg Tablet.dr 40 MG GT DAILY, TAB Phenytoin Sodium Extended* (Phenytoin Sodium Extended*) 100 Mg Capsule 200 MG GT THREE TIMES A DAY, #60 CAP 0 Refills Protein Supplement (Promod) 946 Ml Liquid 30 ML GT DAILY, ML Valproate Sodium (Valproic Acid) 250 Mg/5 Ml Solution 750 MG PO TID Vit C/Ascorbate Ca/Ascorb Sod (Vitamin C 500 Mg/15 Ml Liquid) 500 Mg/15 Ml Liquid 500 MG PO DAILY, ML Zinc Sulfate (Zinc Sulfate*) 220 Mg Capsule 220 MG GT DAILY, CAP 0 Refills Discontinued Medications: Enoxaparin* (Lovenox*) 40 Mg/0.4 Ml Inj 40 MG SUBQ DAILY Discharge Condition Upon Discharge: stable Discharge Disposition Patient was discharged to SNF/Subacute Facility(03) Discharge Diagnoses: Discharge Instructions Discharge Instructions Special Instructions I have been assigned to complete a D/C Summary on this account. I was not involved in the patient management Serena Carrion NP (Vanchtein) Nov 10, 2016 12:35
--- NOTE | 2016-11-11 01:08 | Discharge Summary 2 SIG ---
DATE OF ADMISSION: 11/03/2016 DATE OF DISCHARGE: 11/09/2016 REASON FOR ADMISSION: 41-year-old male, [facility] , with chronic ventilator dependent respiratory failure, chronic encephalopathy, tracheostomy, G-tube, noted to have hematuria after Pereira catheter placement in subacute facility. The patient was on Lovenox. The mother noted easy bleeding with shaving. The patient was brought to the emergency room for evaluation. Workup in the emergency room revealed gross hematuria in urine, leukocytosis, tachycardia and low blood pressure of 93 /69. Urinalysis with gross evidence of UTI. The patient was admitted for further management. ADMITTING DIAGNOSES: 1. Hematuria. 2. Urinary tract infection. 3. Chronic respiratory failure, ventilator dependent with tracheostomy status.. 4. Chronic vegetative state/chronic encephalopathy. 5. Seizure disorder. HOSPITAL STAY: The patient was admitted. The patient was started on empiric antibiotics. The patient was pancultured prior to starting antibiotics. Urine culture revealed Proteus ESBL. Blood cultures were negative. ID followed the patient. Antibiotic regimen was optimized based on culture and sensitivity. The patient status post treatment for UTI. Lovenox was discontinued. Manual irrigation of the Pereira catheter was done and hematuria gradually resolved. Hemoglobin and hematocrit were closely monitored. The patient had evidence of anemia, however, hemoglobin and hematocrit are at the baseline. No significant trend down. The patient was on Epogen. Continue to monitor hemoglobin and [facility]ocrit [facility]. The patient was initially hypotensive and started on midodrine. Blood pressure improved. Metoprolol was added for control of tachycardia. Blood sugar was managed with long acting Levemir as well as sliding scale of insulin. Hemoglobin A1c - 6.8, at goal. Initially blood glucose was 713. The patient was receiving IVF with dextrose, which was changed. Blood sugar stabilized. Chest x-ray revealed no acute cardiopulmonary process. No evidence of respiratory distress on current ventilator settings. Continue settings as is and adjust as needed in the subacute facility. Pulmonary toilet was provided. Ventilator and tracheostomy care was provided. Strict aspiration precaution were maintained. The patient was able to tolerate G-tube feeding. No evidence of aspiration. Seizure precaution maintained. No seizure activity while in the hospital. Continue current regimen of anticonvulsant medications. Wound care nurse seen and evaluated the patient. Wound care provided as per wound nurse recommendations and to be continued at the [facility]. Leukocytosis resolved. No fever. Hematuria possibly traumatic, after Pereira catheter insertion along with use of anticoagulation and evidence of UTI- resolved. Lovenox discontinued. The patient was stable for discharge back to subacute facility. DISCHARGE DIAGNOSES: 1. Hematuria likely secondary to anticoagulation, possibly traumatic, possibly due to UTI - resolved. 2. Urinary tract infection/Proteus Extended-spectrum beta-lactamases, status post treatment. 3. Ventilator dependent respiratory failure/tracheostomy status. 4. Chronic encephalopathy. 5. Seizure disorder. 6. Anemia of chronic disease. 7. History of hypertension. 8. Diabetes mellitus. 9. Sacral decubitus stage IV, present on admission. DISCHARGE MEDICATIONS: See medication reconciliation list. DISCHARGE INSTRUCTIONS: The patient to follow up with medical doctor and health promoter at subacute facility. Andres Wakefield M.D. I have been assigned to dictate discharge summary on this account and I was not involved in the patient's management. Serena Dioropal N.PFrandy DR: PARMINDER JOB#: [id number] CC: DEAN
== END 2016-11-09 14:57 | DRG 468 ==
LOC: EDBD 18:22 → EMR 18:55 → 2W 21:35 → EDBEDREQ 23:17
PROC: 5A1955Z Respiratory Ventilation, Greater than 96 Consecutive Hours (ICD-10-PCS; principal; 2016-11-03)
PROC: 05H333Z Insertion of Infusion Device into Right Innominate Vein, Percutaneous Approach (ICD-10-PCS; 2016-11-06)
DX: R31.9 Hematuria, unspecified (principal); R40.3 Persistent vegetative state; G93.40 Encephalopathy, unspecified; L89.154 Pressure ulcer of sacral region, stage 4; D68.32 Hemorrhagic disorder due to extrinsic circulating anticoagulants; T45.515A Adverse effect of anticoagulants, initial encounter; N39.0 Urinary tract infection, site not specified; J96.10 Chronic respiratory failure, unspecified whether with hypoxia or hypercapnia; R00.0 Tachycardia, unspecified; G40.909 Epilepsy, unspecified, not intractable, without status epilepticus; I10 Essential (primary) hypertension; Z43.0 Encounter for attention to tracheostomy; Z43.1 Encounter for attention to gastrostomy; B96.4 Proteus (mirabilis) (morganii) as the cause of diseases classified elsewhere; Z16.12 Extended spectrum beta lactamase (ESBL) resistance; D63.8 Anemia in other chronic diseases classified elsewhere; R53.2 Functional quadriplegia; E10.65 Type 1 diabetes mellitus with hyperglycemia; L89.899 Pressure ulcer of other site, unspecified stage
CPT/HCPCS: 36415; 36569; 71010; 76937; 80048; 80053; 80156; 80202; 81003; 82947; 82962; 83036; 85007; 85025; 85610; 87040; 87070; 87081; 87086; 87181; 87205; 94002; 94003; J1815; S5561

== ENCOUNTER 2017-06-12 13:18 | Inpatient (IN) | payer MEDICAID ==
[~2017-06-12] VITALS: Ht 172.7 cm; Wt 72.6 kg
[~2017-06-12 13:18] MED LIST changes: +ATIVAN1 MG GT; +Cefepime HCl 1 GM in NS 55 ML IV STA; +LEVEMIR100 UNIT/1 SUBQ; +MULTI-DELYN237 ML GT; +PROMOD946 ML PO; +VALPROIC A250 MG/5 M GT; -VALPROIC A250 MG/5 M PO; +Vancomycin 1 GM in NS 275 ML IV ONE
[2017-06-12] MEDS ORDERED: Cefepime 1gm vial ONE (14:02)
[2017-06-12 14:12] LABS: BASOPHILS % (AUTO) 0.5 % (0.0-2.0); EOSINOPHILS % (AUTO) 7.2 % (0.0-3.0); LYMPHOCYTES % (AUTO) 10.6 % (20.0-45.0); MEAN CORPUSCULAR HEMOGLOBIN 31.5 PG (27.0-31.0); MEAN CORPUSCULAR HGB CONC 31.8 G/DL (32.0-36.0); MEAN CORPUSCULAR VOLUME 99 FL (80-99); MEAN PLATELET VOLUME 6.4 FL (6.5-10.1); MONOCYTES % (AUTO) 2.6 % (1.0-10.0); PLATELET COUNT 444 K/UL (150-450); RED BLOOD COUNT 3.65 M/UL (4.70-6.10); RED CELL DISTRIBUTION WIDTH 15.2 % (11.6-14.8); WHITE BLOOD COUNT 17.6 K/UL (4.8-10.8)
[2017-06-12 14:13] VITALS: BP 103/57
[2017-06-12 14:25] LABS: INR 1.1 (0.9-1.1)
[2017-06-12 14:31] LABS: ANION GAP 8 mmol/L (5-15); CALCIUM 9.7 MG/DL (8.5-10.1); CARBON DIOXIDE 31 MMOL/L (21-32); CHLORIDE 99 MMOL/L (98-107); CREATININE 0.6 MG/DL (0.55-1.30); GLOMERULAR FILTRATION RATE > 60 mL/min (>60); POTASSIUM 3.6 MMOL/L (3.5-5.1); SODIUM 138 MMOL/L (136-145)
[2017-06-12 14:41] LABS: ALANINE AMINOTRANSFERASE 27 U/L (12-78); ALBUMIN/GLOBULIN RATIO 0.5 (1.0-2.7); ASPARTATE AMINO TRANSFERASE 27 U/L (15-37); TOTAL PROTEIN 8.3 G/DL (6.4-8.2)
[2017-06-12] MEDS ORDERED: Vancomycin 1gm inj IVPB ONE (15:00)
[2017-06-12] MEDS ORDERED: Albuterol/Ipratropium 3ml neb HHN PRN (15:30)
[2017-06-12] MEDS ORDERED: Morphine Sulfate 4mg/ml Inj IVP PRN (15:30)
[2017-06-12] MEDS ORDERED: LORazepam Inj 2mg/ml 1ml IV PRN (15:30)
[2017-06-12] MEDS ORDERED: Miralax 17gm pkt ORAL PRN (15:30)
[2017-06-12 15:37] VITALS: BP 11/60
[2017-06-12 16:14] LABS: APPEARANCE,URINE SLIGHTLY CLOUDY; KETONES,URINE NEGATIVE (NEGATIVE); LEUKOCYTE ESTERASE ,URINE 2+ (NEGATIVE); NITRITE,URINE NEGATIVE (NEGATIVE); PH,URINE 8 (4.5-8.0); PROTEIN,URINE 2+ (NEGATIVE); UROBILINOGEN,URINE 1 MG/DL (0.0-1.0)
[2017-06-12 16:31] LABS: BACTERIA,URINE OCCASIONAL /HPF; WBC,URINE 30-40 /HPF (0 - 0)
[2017-06-12] MEDS ORDERED: KEPPRA500 M4 GT (17:35)
[2017-06-12] MEDS ORDERED: OMEPRAZOLE20 M2 GT (17:38)
[2017-06-12] MEDS: carBAMazepine 200mg tab GT SCH (18:01)
[2017-06-12 20:00] VITALS: BP 126/64
[2017-06-12] MEDS: Vancomycin 1 GM in D5W 275 ML IVPB SCH (20:51)
[2017-06-12] MEDS: Heparin 5000 units/ml inj SUBQ SCH (20:53)
[2017-06-12] MEDS: Zosyn 3.375gm/50ml Premix 50 ML IVPB SCH (21:30)
[2017-06-13] VITALS: BP 113/63
--- NOTE | 2017-06-13 01:26 | Emergency Room Report ---
History of Present Illness General Chief Complaint: Abnormal Labs Source: Family Member, EMS Present Illness HPI The patient is sent in for re-evaluation for pneumonia. He is receiving vancomycin and levaquin at the SNF. Still with productive cough with thick sputum. There have been problems in the past with vancomycin resistant organisms. Apparently, WBC at [facility] was 23,000. 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 Recently admitted for sepsis. His mother is concerned about possible pain at the G tube site. He has had a condom cath in the past. He was discharged January 2017 with these diagnoses: 1. Sepsis, possible pneumonia. 2. Chronic encephalopathy. 3. Sinus tachycardia. 4. Acute on chronic respiratory failure. 5. Chronic vegetative state/ functional quadriplegia. 6. Seizure disorder. 7. Protein-calorie malnutrition. 8. Mild leukocytosis. 9. With multiple pressure ulcers, present on admission. No other history is available. Allergies: Coded Allergies: No Known Allergies (Unverified , 07/21/16) Patient History Limited by: medical condition Past Medical History: see triage record, old chart reviewed Past Surgical History: other - trach. G tube Social History Narrative [facility] Reviewed Nursing Documentation: PMH: Agreed, PSxH: Agreed Nursing Documentation-PM Past Medical History: No History, Except For Hx Hypertension: Yes Hx Diabetes: Yes Hx Cancer: No Hx Gastrointestinal Problems: Yes - G-tube, Hx Cerebrovascular Accident: Yes Hx Seizures: Yes Review of Systems All Other Systems: limited Physical Exam Vital Signs Date Time Temp Pulse Resp B/P (MAP) Pulse Ox O2 Delivery O2 Flow Rate FiO2 06/12/17 13:12 85 14 140/100 99 Mechanical Ventilator 40 06/12/17 15:37 96.9 Sp02 EP Interpretation: reviewed, normal General Appearance: thin, Chronically Ill, Stupor Head: normocephalic Eyes: bilateral eye normal inspection, bilateral eye PERRL ENT: dry mucus membranes Neck: supple Respiratory: crackles, rales, rhonchi, other - thick yellow secretions Cardiovascular #1: tachycardia Cardiovascular #2: 2+ radial (R) Gastrointestinal: normal inspection, non tender, no mass, non-distended, no guarding, other - G tube, decreased bowel sounds Musculoskeletal: back normal, other - contractures bilateral hands Neurologic: other - unresponsive to pain Psychiatric: other - stupor Reflexes: 1+ knee (R), 1+ knee (L) Skin: warm/dry, other - decubiti Medical Decision Making Diagnostic Impression: Primary Impression: Severe sepsis Additional Impressions: Pneumonia Qualified Codes: J18.9 - Pneumonia, unspecified organism UTI (urinary tract infection) Qualified Codes: N30.00 - Acute cystitis without hematuria ER Course Patient presents with probable pneumonia with elevated WBC. DDx: sepsis, pneumonia, electrolyte abnormality, AMI, UTI. Extremely complex patient needing full evaluation with BC, EKG, CXR and labs including lactate. Treatment with 30 ml/kg bolus and continued hydration with broad spectrum antibiotics. Not in septic shock at this time however, VS with tachycardia. Continued vent support. EKG, no injury. CXR with bilateral infiltrates (had similar last admission). WBC elevated. Lactic acid normal. Normal renal function. Pyuria. O2 saturation 100% on vent. Secretions somewhat better with suctioning. G tube site without inflammation and no abdominal tenderness. Patient admitted to [facility]. Discussion with both Dr. Wakefield and Dr. Wong led to admission to Dr. Wong. Condition, serious but somewhat improved. Laboratory Tests Test 06/12/17 13:25 06/12/17 15:40 White Blood Count 17.6 K/UL (4.8-10.8) H Red Blood Count 3.65 M/UL (4.70-6.10) L Hemoglobin 11.5 G/DL (14.2-18.0) L Hematocrit 36.1 % (42.0-52.0) L Mean Corpuscular Volume 99 FL (80-99) Mean Corpuscular Hemoglobin 31.5 PG (27.0-31.0) H Mean Corpuscular Hemoglobin Concent 31.8 G/DL (32.0-36.0) L Red Cell Distribution Width 15.2 % (11.6-14.8) H Platelet Count 444 K/UL (150-450) Mean Platelet Volume 6.4 FL (6.5-10.1) L Neutrophils (%) (Auto) 79.0 % (45.0-75.0) H Lymphocytes (%) (Auto) 10.6 % (20.0-45.0) L Monocytes (%) (Auto) 2.6 % (1.0-10.0) Eosinophils (%) (Auto) 7.2 % (0.0-3.0) H Basophils (%) (Auto) 0.5 % (0.0-2.0) Prothrombin Time 11.0 SEC (9.30-11.50) Prothrombin Time INR 1.1 (0.9-1.1) PTT 34 SEC (23-33) H Sodium Level 138 MMOL/L (136-145) Potassium Level 3.6 MMOL/L (3.5-5.1) Chloride Level 99 MMOL/L (98-107) Carbon Dioxide Level 31 MMOL/L (21-32) Anion Gap 8 mmol/L (5-15) Blood Urea Nitrogen 22 mg/dL (7-18) H Creatinine 0.6 MG/DL (0.55-1.30) Estimate Glomerular Filtration Rate > 60 mL/min (>60) Glucose Level 43 MG/DL (74-106) L Lactic Acid Level 1.10 mmol/L (0.66-2.22) Calcium Level 9.7 MG/DL (8.5-10.1) Total Bilirubin 0.3 MG/DL (0.2-1.0) Aspartate Amino Transferase (AST) 27 U/L (15-37) Alanine Aminotransferase (ALT) 27 U/L (12-78) Alkaline Phosphatase 266 U/L (46-116) H Total Creatine Kinase 138 U/L (26-308) Troponin I 0.000 ng/mL (0.000-0.056) Pro-B-Type Natriuretic Peptide 99 pg/mL (0-125) Total Protein 8.3 G/DL (6.4-8.2) H Albumin 2.6 G/DL (3.4-5.0) L Globulin 5.7 g/dL Albumin/Globulin Ratio 0.5 (1.0-2.7) L Urine Color Yellow Urine Appearance Slightly cloudy Urine pH 8 (4.5-8.0) Urine Specific [place] 1.015 (1.005-1.035) Urine Protein 2+ (NEGATIVE) H Urine Glucose (UA) Negative (NEGATIVE) Urine Ketones Negative (NEGATIVE) Urine Occult Blood 2+ (NEGATIVE) H Urine Nitrite Negative (NEGATIVE) Urine Bilirubin Negative (NEGATIVE) Urine Urobilinogen 1 MG/DL (0.0-1.0) H Urine Leukocyte Esterase 2+ (NEGATIVE) H Urine RBC 5-10 /HPF (0 - 0) H Urine WBC 30-40 /HPF (0 - 0) H Urine Squamous Epithelial Cells None /LPF (NONE/OCC) Urine Bacteria Occasional /HPF (NONE) EKG Diagnostic Results Rate: tachycardiac ST Segments: no acute changes Rhythm Strip Diag. Results EP Interpretation: yes Rhythm: no PVC's, no ectopy, other - ST Last Vital Signs Date Time Temp Pulse Resp B/P (MAP) Pulse Ox O2 Delivery O2 Flow Rate FiO2 06/12/17 22:54 114 20 35 06/12/17 20:00 98.4 126/64 100 Mechanical Ventilator Status: improved Disposition: ADMITTED INPATIENT Condition: Serious Referrals: LAURA WAKEFIELD (PCP) Jl Shepherd M.D. Jun 13, 2017 01:26
[2017-06-13 04:00] VITALS: BP 106/60
[2017-06-13] MEDS: Vancomycin 1 GM in D5W 275 ML IVPB SCH ×2 (04:27→11:08)
[2017-06-13] MEDS: Zosyn 3.375gm/50ml Premix 50 ML IVPB SCH ×2 (07:09→13:22)
[2017-06-13 07:10] LABS: ANION GAP 7 mmol/L (5-15); CARBON DIOXIDE 31 MMOL/L (21-32); CHLORIDE 102 MMOL/L (98-107); CREATININE 0.8 MG/DL (0.55-1.30); GLOMERULAR FILTRATION RATE > 60 mL/min (>60); PHOSPHORUS 3.9 MG/DL (2.5-4.9); POTASSIUM 3.6 MMOL/L (3.5-5.1); SODIUM 140 MMOL/L (136-145)
[2017-06-13 07:21] LABS: MEAN CORPUSCULAR HEMOGLOBIN 32.2 PG (27.0-31.0); MEAN CORPUSCULAR HGB CONC 32.7 G/DL (32.0-36.0); MEAN CORPUSCULAR VOLUME 99 FL (80-99); MEAN PLATELET VOLUME 6.2 FL (6.5-10.1); PLATELET COUNT 408 K/UL (150-450); RED BLOOD COUNT 3.22 M/UL (4.70-6.10); RED CELL DISTRIBUTION WIDTH 14.9 % (11.6-14.8); WHITE BLOOD COUNT 13.3 K/UL (4.8-10.8)
[2017-06-13 08:00] VITALS: BP 127/67
[2017-06-13] MEDS: carBAMazepine 200mg tab GT SCH ×3 (08:23→17:08)
[2017-06-13] MEDS: Heparin 5000 units/ml inj SUBQ SCH ×2 (08:25→21:00)
[2017-06-13] MEDS ORDERED: Digoxin 0.125mg tab ORAL SCH (09:00)
[2017-06-13] MEDS ORDERED: Pantoprazole Inj IV SCH (09:00)
--- NOTE | 2017-06-13 09:25 | History and Physical ---
History of Present Illness General Date patient seen: Jun 13, 2017 Reason for Hospitalization: Abnormal Labs Present Illness HPI 42 year old male with hx of Chronic vegetative state/ functional quadriplegia, Seizure disorder, Post CVA, Protein-calorie malnutrition. With multiple pressure ulcers, is sent in for re-evaluation for pneumonia. He is receiving vancomycin and levaquin at the SNF. Still with productive cough with thick sputum. Pt is admitted for further evaluation . Allergies: Coded Allergies: No Known Allergies (Unverified , 07/21/16) Medication History Scheduled Albuterol Sulfate* (Albuterol Sulfate Mdi*), 2 PUFF INH Q6H, (Reported) Ascorbic Acid* (Vitamin C*), 500 MG GT DAILY, (Reported) Carbamazepine (Tegretol*), 400 MG GT TID, (Reported) Digoxin* (Digoxin*), 125 MCG GT DAILY, (Reported) Docusate Sodium* (Docusate Sodium*), 100 MG GT DAILY, (Reported) Gemfibrozil (Gemfibrozil*), 600 MG GT BID, (Reported) Levetiracetam (Keppra), 500 MG GT EVERY 12 HOURS, (Reported) Lorazepam* (Ativan*), 1 MG GT PRN, (Reported) Metoprolol Tartrate* (Metoprolol Tartrate*), 100 MG GT EVERY 12 HOURS, (Reported ) Midodrine* (Proamatine*), 2.5 MG GT THREE TIMES A DAY, (Reported) Multivitamin Liquid* (Multi-Delyn*), 15 ML GT DAILY, (Reported) Na Phos,M-B/Na Phos,Di-Ba* (Fleet Enema*), 133 ML RECTAL DAILY, (Reported) Omeprazole (Omeprazole), 20 MG GT DAILY, (Reported) Lcqquapqbzou-Fsgs-Ldbxfojd,Iso (Zosyn 3.375 Gm Pre Mix-Bag), 3.375 GM IVPB Q8H Protein Supplement (Promod), 30 ML PO THREE TIMES A DAY, (Reported) Valproate Sodium (Valproic Acid), 1,500 MG GT Q12HR, (Reported) Vit C/Ascorbate Ca/Ascorb Sod (Vitamin C 500 Mg/15 Ml Liquid), 500 MG PO DAILY, (Reported) Zinc Sulfate (Zinc Sulfate*), 220 MG GT DAILY, (Reported) Scheduled PRN Acetaminophen 160MG/5ML* (Acetaminophen*), 5 ML GT THREE TIMES A DAY PRN for Fever/Headache/Mild Pain, (Reported) Bisacodyl (Dulcolax), 10 MG RC PRN PRN for Constipation, (Reported) Hydrocodone Bit/Acetaminophen 5-325* ([place] 5-325*), 1 TAB ORAL Q4H PRN for For Pain, (Reported) Ipratropium [place] 0.5MG/2.5ML (Ipratropium [place] 0.5MG/2.5ML), 0.5 MG HHN Q6H PRN for Shortness of Breath, (Reported) Magnesium Hydroxide* (Milk Of Magnesia*), 30 ML GT DAILY PRN for Constipation, ( Reported) Discontinued Medications Cran/Vitc/Mannose/Inulin/Brom (Uti-Stat Liquid), 3,875 MG GT BID, (Reported) Discontinued Reason: Therapy completed Epoetin Grabiel (Epogen), 20,000 UNIT SUBQ THREE TIMES A WEEK, (Reported) Discontinued Reason: Therapy completed Vancomycin/0.9% Sod Chloride (Vancomycin-0.9% Nacl 1 G/250), 1 GM IVPB Q24H Discontinued Reason: Therapy completed Patient History Healthcare decision maker Resuscitation status Full Code Advanced Directive on File Past Medical/Surgical History Past Medical/Surgical History: (1) Vegetative state (2) Feeding by G-tube (3) Decubital ulcer (4) Limited mobility in bed Physical Exam General Appearance: WD/WN Lines, tubes and drains: peripheral HEENT: normocephalic, atraumatic Neck: non-tender, supple Respiratory/Chest: chest wall non-tender, lungs clear Breasts: no masses Cardiovascular/Chest: normal peripheral pulses Abdomen: normal bowel sounds, non tender Genitourinary/Rectal: normal genital exam, heme negative stool Extremities: normal range of motion Skin Exam: normal pigmentation Last 24 Hour Vital Signs Date Time Temp Pulse Resp B/P (MAP) Pulse Ox O2 Delivery O2 Flow Rate FiO2 06/13/17 08:37 95 16 35 06/13/17 08:23 95 06/13/17 08:00 35 06/13/17 08:00 98.2 95 16 127/67 98 Mechanical Ventilator 35 06/13/17 07:04 92 16 35 06/13/17 05:17 104 16 35 06/13/17 04:00 99.0 100 19 106/60 100 Mechanical Ventilator 35 06/13/17 04:00 35 06/13/17 04:00 111 06/13/17 02:50 106 16 35 06/13/17 01:16 110 20 35 06/13/17 00:00 115 06/13/17 00:00 98.8 115 16 113/63 96 Mechanical Ventilator 35 06/13/17 00:00 35 06/12/17 22:54 114 20 35 06/12/17 21:28 102 20 35 06/12/17 20:10 109 20 35 06/12/17 20:00 105 06/12/17 20:00 98.4 108 22 126/64 100 Mechanical Ventilator 35 06/12/17 20:00 35 06/12/17 16:58 35 06/12/17 16:58 70 18 40 06/12/17 16:04 96.9 72 15 99 Mechanical Ventilator 40 06/12/17 15:37 96.9 72 15 99 Mechanical Ventilator 40 06/12/17 14:58 77 18 40 06/12/17 14:13 78 19 103/57 99 Mechanical Ventilator 40 06/12/17 13:20 80 20 40 06/12/17 13:12 85 14 140/100 99 Mechanical Ventilator 40 Laboratory Tests Test 06/12/17 13:25 06/12/17 15:40 06/13/17 06:10 White Blood Count 17.6 K/UL (4.8-10.8) H 13.3 K/UL (4.8-10.8) H Red Blood Count 3.65 M/UL (4.70-6.10) L 3.22 M/UL (4.70-6.10) L Hemoglobin 11.5 G/DL (14.2-18.0) L 10.4 G/DL (14.2-18.0) L Hematocrit 36.1 % (42.0-52.0) L 31.7 % (42.0-52.0) L Mean Corpuscular Volume 99 FL (80-99) 99 FL (80-99) Mean Corpuscular Hemoglobin 31.5 PG (27.0-31.0) H 32.2 PG (27.0-31.0) H Mean Corpuscular Hemoglobin Concent 31.8 G/DL (32.0-36.0) L 32.7 G/DL (32.0-36.0) Red Cell Distribution Width 15.2 % (11.6-14.8) H 14.9 % (11.6-14.8) H Platelet Count 444 K/UL (150-450) 408 K/UL (150-450) Mean Platelet Volume 6.4 FL (6.5-10.1) L 6.2 FL (6.5-10.1) L Neutrophils (%) (Auto) 79.0 % (45.0-75.0) H % (45.0-75.0) Lymphocytes (%) (Auto) 10.6 % (20.0-45.0) L % (20.0-45.0) Monocytes (%) (Auto) 2.6 % (1.0-10.0) % (1.0-10.0) Eosinophils (%) (Auto) 7.2 % (0.0-3.0) H % (0.0-3.0) Basophils (%) (Auto) 0.5 % (0.0-2.0) % (0.0-2.0) Prothrombin Time 11.0 SEC (9.30-11.50) Prothromb Time International Ratio 1.1 (0.9-1.1) Activated Partial Thromboplast Time 34 SEC (23-33) H Sodium Level 138 MMOL/L (136-145) 140 MMOL/L (136-145) Potassium Level 3.6 MMOL/L (3.5-5.1) 3.6 MMOL/L (3.5-5.1) Chloride Level 99 MMOL/L (98-107) 102 MMOL/L (98-107) Carbon Dioxide Level 31 MMOL/L (21-32) 31 MMOL/L (21-32) Anion Gap 8 mmol/L (5-15) 7 mmol/L (5-15) Blood Urea Nitrogen 22 mg/dL (7-18) H 17 mg/dL (7-18) Creatinine 0.6 MG/DL (0.55-1.30) 0.8 MG/DL (0.55-1.30) Estimat Glomerular Filtration Rate > 60 mL/min (>60) > 60 mL/min (>60) Glucose Level 43 MG/DL (74-106) L 213 MG/DL (74-106) #H Lactic Acid Level 1.10 mmol/L (0.66-2.22) Calcium Level 9.7 MG/DL (8.5-10.1) 9.0 MG/DL (8.5-10.1) Total Bilirubin 0.3 MG/DL (0.2-1.0) Aspartate Amino Transf (AST/SGOT) 27 U/L (15-37) Alanine Aminotransferase (ALT/SGPT) 27 U/L (12-78) Alkaline Phosphatase 266 U/L (46-116) H Total Creatine Kinase 138 U/L (26-308) Troponin I 0.000 ng/mL (0.000-0.056) Pro-B-Type Natriuretic Peptide 99 pg/mL (0-125) Total Protein 8.3 G/DL (6.4-8.2) H Albumin 2.6 G/DL (3.4-5.0) L 2.1 G/DL (3.4-5.0) L Globulin 5.7 g/dL Albumin/Globulin Ratio 0.5 (1.0-2.7) L Urine Color Yellow Urine Appearance Slightly cloudy Urine pH 8 (4.5-8.0) Urine Specific [place] 1.015 (1.005-1.035) Urine Protein 2+ (NEGATIVE) H Urine Glucose (UA) Negative (NEGATIVE) Urine Ketones Negative (NEGATIVE) Urine Occult Blood 2+ (NEGATIVE) H Urine Nitrite Negative (NEGATIVE) Urine Bilirubin Negative (NEGATIVE) Urine Urobilinogen 1 MG/DL (0.0-1.0) H Urine Leukocyte Esterase 2+ (NEGATIVE) H Urine RBC 5-10 /HPF (0 - 0) H Urine WBC 30-40 /HPF (0 - 0) H Urine Squamous Epithelial Cells None /LPF (NONE/OCC) Urine Bacteria Occasional /HPF (NONE) Neutrophils % (Manual) Pending Lymphocytes % (Manual) Pending Platelet Estimate Pending Platelet Morphology Pending Phosphorus Level 3.9 MG/DL (2.5-4.9) Height (Feet): 5 Height (Inches): 8.00 Weight (Pounds): 160 Medications Current Medications Medications (Trade) Dose Ordered Sig/Guillermo Route PRN Reason Start Time Stop Time Status Last Admin Dose Admin Acetaminophen (Tylenol) 650 mg Q4H PRN ORAL FEVER 06/12/17 15:30 07/12/17 15:29 Albuterol/ Ipratropium (Albuterol/ Ipratropium) 3 ml Q4H PRN HHN Shortness of Breath 06/12/17 15:30 06/17/17 15:29 Carbamazepine (TEGretol) 400 mg TID GT 06/12/17 18:00 07/12/17 17:59 06/13/17 08:23 Dextrose (Dextrose 50%) STAT PRN IV Hypoglycemia 06/12/17 15:30 07/12/17 15:29 Digoxin (Lanoxin) 0.125 mg DAILY ORAL 06/13/17 09:00 07/13/17 08:59 06/13/17 08:23 Heparin Sodium (Porcine) (Heparin 5000 units/ml) 5,000 units EVERY 12 HOURS SUBQ 06/12/17 21:00 07/12/17 20:59 06/13/17 08:25 Lorazepam (Ativan 2mg/ml 1ml) 2 mg Q2H PRN IV For Anxiety 06/12/17 15:30 06/19/17 15:29 Morphine Sulfate (Morphine Sulfate) 4 mg Q4H PRN IVP Severe Pain (Pain Scale 7-10) 06/12/17 15:30 06/19/17 15:29 Ondansetron HCl (Zofran) 4 mg Q6H PRN IVP Nausea & Vomiting 06/12/17 15:30 07/12/17 15:29 Pantoprazole (Protonix) 40 mg DAILY IV 06/13/17 09:00 07/13/17 08:59 06/13/17 08:24 Piperacillin/ Tazobactam/ Dextrose 50 ml @ 12.5 mls/hr Q8HR IVPB 06/12/17 22:00 06/19/17 21:59 06/13/17 07:09 Polyethylene Glycol (Miralax) 17 gm DAILYPRN PRN ORAL Constipation 06/12/17 15:30 07/12/17 15:29 Vancomycin HCl (Vanco rx to dose) 1 ea DAILY PRN MISC PER RX PROTOCOL 06/12/17 17:45 07/12/17 17:44 Vancomycin HCl 1 gm/Dextrose 275 ml @ 183.3 mls/ hr Q8H IVPB 06/12/17 20:00 06/17/17 19:59 06/13/17 04:27 Assessment/Plan Problem List: (1) Pneumonia ICD Codes: J18.9 - Pneumonia, unspecified organism SNOMED: 137629391 Qualifiers: Qualified Codes: J18.9 - Pneumonia, unspecified organism (2) UTI (urinary tract infection) ICD Codes: N39.0 - Urinary tract infection, site not specified SNOMED: 81310562 Qualifiers: Qualified Codes: N30.00 - Acute cystitis without hematuria (3) Severe sepsis ICD Codes: A41.9 - Sepsis, unspecified organism; R65.20 - Severe sepsis without septic shock SNOMED: 49957018 (4) Vegetative state ICD Codes: R40.3 - Persistent vegetative state SNOMED: 90662474, 298413717 (5) Chronic respiratory failure ICD Codes: J96.10 - Chronic respiratory failure, unspecified whether with hypoxia or hypercapnia SNOMED: 66290022 (6) Limited mobility in bed SNOMED: 887107306 (7) Feeding by G-tube ICD Codes: Z93.1 - Gastrostomy status SNOMED: 700342043, 686477036 (8) Decubital ulcer ICD Codes: L89.90 - Pressure ulcer of unspecified site, unspecified stage SNOMED: 856751949 Respiratory: monitor respiratory rate, adjust FIO2, CXR Cardiac: continue to monitor HR/BP Renal: F/U I&O, keep IV fluid Infectious Disease: check cultures, continue antibiotics Gastrointestinal: continue feedings/current rate Endocrine: monitor blood sugar, check TSH, check HgA1C, continue sliding scale insulin Hematologic: transfuse if hgb<8.5 Neurologic: PRN Ativan, keep patient comfortable Affect: PRN ativan Time Spent (Minutes): 40 Notes Reviewed: cardio, renal Discussed with: nurses, consultants, sample case porter GAIL MULTANI Jun 13, 2017 09:25
--- NOTE | 2017-06-13 09:31 | Infectious Diseases Prog Note ---
Assessment/Plan Assessment/Plan ID consult dictated # [id number] Subjective Allergies: Coded Allergies: No Known Allergies (Unverified , 07/21/16) Objective Vital Signs Last 24 Hour Vital Signs Date Time Temp Pulse Resp B/P (MAP) Pulse Ox O2 Delivery O2 Flow Rate FiO2 06/13/17 08:37 95 16 35 06/13/17 08:23 95 06/13/17 08:00 35 06/13/17 08:00 98.2 95 16 127/67 98 Mechanical Ventilator 35 06/13/17 07:04 92 16 35 06/13/17 05:17 104 16 35 06/13/17 04:00 99.0 100 19 106/60 100 Mechanical Ventilator 35 06/13/17 04:00 35 06/13/17 04:00 111 06/13/17 02:50 106 16 35 06/13/17 01:16 110 20 35 06/13/17 00:00 115 06/13/17 00:00 98.8 115 16 113/63 96 Mechanical Ventilator 35 06/13/17 00:00 35 06/12/17 22:54 114 20 35 06/12/17 21:28 102 20 35 06/12/17 20:10 109 20 35 06/12/17 20:00 105 06/12/17 20:00 98.4 108 22 126/64 100 Mechanical Ventilator 35 06/12/17 20:00 35 06/12/17 16:58 35 06/12/17 16:58 70 18 40 06/12/17 16:04 96.9 72 15 99 Mechanical Ventilator 40 06/12/17 15:37 96.9 72 15 99 Mechanical Ventilator 40 06/12/17 14:58 77 18 40 06/12/17 14:13 78 19 103/57 99 Mechanical Ventilator 40 06/12/17 13:20 80 20 40 06/12/17 13:12 85 14 140/100 99 Mechanical Ventilator 40 Height (Feet): 5 Height (Inches): 8.00 Weight (Pounds): 160 Laboratory Tests Test 06/12/17 13:25 06/12/17 15:40 06/13/17 06:10 White Blood Count 17.6 K/UL (4.8-10.8) H 13.3 K/UL (4.8-10.8) H Red Blood Count 3.65 M/UL (4.70-6.10) L 3.22 M/UL (4.70-6.10) L Hemoglobin 11.5 G/DL (14.2-18.0) L 10.4 G/DL (14.2-18.0) L Hematocrit 36.1 % (42.0-52.0) L 31.7 % (42.0-52.0) L Mean Corpuscular Volume 99 FL (80-99) 99 FL (80-99) Mean Corpuscular Hemoglobin 31.5 PG (27.0-31.0) H 32.2 PG (27.0-31.0) H Mean Corpuscular Hemoglobin Concent 31.8 G/DL (32.0-36.0) L 32.7 G/DL (32.0-36.0) Red Cell Distribution Width 15.2 % (11.6-14.8) H 14.9 % (11.6-14.8) H Platelet Count 444 K/UL (150-450) 408 K/UL (150-450) Mean Platelet Volume 6.4 FL (6.5-10.1) L 6.2 FL (6.5-10.1) L Neutrophils (%) (Auto) 79.0 % (45.0-75.0) H % (45.0-75.0) Lymphocytes (%) (Auto) 10.6 % (20.0-45.0) L % (20.0-45.0) Monocytes (%) (Auto) 2.6 % (1.0-10.0) % (1.0-10.0) Eosinophils (%) (Auto) 7.2 % (0.0-3.0) H % (0.0-3.0) Basophils (%) (Auto) 0.5 % (0.0-2.0) % (0.0-2.0) Prothrombin Time 11.0 SEC (9.30-11.50) Prothromb Time International Ratio 1.1 (0.9-1.1) Activated Partial Thromboplast Time 34 SEC (23-33) H Sodium Level 138 MMOL/L (136-145) 140 MMOL/L (136-145) Potassium Level 3.6 MMOL/L (3.5-5.1) 3.6 MMOL/L (3.5-5.1) Chloride Level 99 MMOL/L (98-107) 102 MMOL/L (98-107) Carbon Dioxide Level 31 MMOL/L (21-32) 31 MMOL/L (21-32) Anion Gap 8 mmol/L (5-15) 7 mmol/L (5-15) Blood Urea Nitrogen 22 mg/dL (7-18) H 17 mg/dL (7-18) Creatinine 0.6 MG/DL (0.55-1.30) 0.8 MG/DL (0.55-1.30) Estimat Glomerular Filtration Rate > 60 mL/min (>60) > 60 mL/min (>60) Glucose Level 43 MG/DL (74-106) L 213 MG/DL (74-106) #H Lactic Acid Level 1.10 mmol/L (0.66-2.22) Calcium Level 9.7 MG/DL (8.5-10.1) 9.0 MG/DL (8.5-10.1) Total Bilirubin 0.3 MG/DL (0.2-1.0) Aspartate Amino Transf (AST/SGOT) 27 U/L (15-37) Alanine Aminotransferase (ALT/SGPT) 27 U/L (12-78) Alkaline Phosphatase 266 U/L (46-116) H Total Creatine Kinase 138 U/L (26-308) Troponin I 0.000 ng/mL (0.000-0.056) Pro-B-Type Natriuretic Peptide 99 pg/mL (0-125) Total Protein 8.3 G/DL (6.4-8.2) H Albumin 2.6 G/DL (3.4-5.0) L 2.1 G/DL (3.4-5.0) L Globulin 5.7 g/dL Albumin/Globulin Ratio 0.5 (1.0-2.7) L Urine Color Yellow Urine Appearance Slightly cloudy Urine pH 8 (4.5-8.0) Urine Specific [place] 1.015 (1.005-1.035) Urine Protein 2+ (NEGATIVE) H Urine Glucose (UA) Negative (NEGATIVE) Urine Ketones Negative (NEGATIVE) Urine Occult Blood 2+ (NEGATIVE) H Urine Nitrite Negative (NEGATIVE) Urine Bilirubin Negative (NEGATIVE) Urine Urobilinogen 1 MG/DL (0.0-1.0) H Urine Leukocyte Esterase 2+ (NEGATIVE) H Urine RBC 5-10 /HPF (0 - 0) H Urine WBC 30-40 /HPF (0 - 0) H Urine Squamous Epithelial Cells None /LPF (NONE/OCC) Urine Bacteria Occasional /HPF (NONE) Neutrophils % (Manual) Pending Lymphocytes % (Manual) Pending Platelet Estimate Pending Platelet Morphology Pending Phosphorus Level 3.9 MG/DL (2.5-4.9) Current Medications Medications (Trade) Dose Ordered Sig/Guillermo Route PRN Reason Start Time Stop Time Status Last Admin Dose Admin Acetaminophen (Tylenol) 650 mg Q4H PRN ORAL FEVER 06/12/17 15:30 07/12/17 15:29 Albuterol/ Ipratropium (Albuterol/ Ipratropium) 3 ml Q4H PRN HHN Shortness of Breath 06/12/17 15:30 06/17/17 15:29 Carbamazepine (TEGretol) 400 mg TID GT 06/12/17 18:00 07/12/17 17:59 06/13/17 08:23 Dextrose (Dextrose 50%) STAT PRN IV Hypoglycemia 06/12/17 15:30 07/12/17 15:29 Digoxin (Lanoxin) 0.125 mg DAILY ORAL 06/13/17 09:00 07/13/17 08:59 06/13/17 08:23 Heparin Sodium (Porcine) (Heparin 5000 units/ml) 5,000 units EVERY 12 HOURS SUBQ 06/12/17 21:00 07/12/17 20:59 06/13/17 08:25 Lorazepam (Ativan 2mg/ml 1ml) 2 mg Q2H PRN IV For Anxiety 06/12/17 15:30 06/19/17 15:29 Morphine Sulfate (Morphine Sulfate) 4 mg Q4H PRN IVP Severe Pain (Pain Scale 7-10) 06/12/17 15:30 06/19/17 15:29 Ondansetron HCl (Zofran) 4 mg Q6H PRN IVP Nausea & Vomiting 06/12/17 15:30 07/12/17 15:29 Pantoprazole (Protonix) 40 mg DAILY IV 06/13/17 09:00 07/13/17 08:59 06/13/17 08:24 Piperacillin/ Tazobactam/ Dextrose 50 ml @ 12.5 mls/hr Q8HR IVPB 06/12/17 22:00 06/19/17 21:59 06/13/17 07:09 Polyethylene Glycol (Miralax) 17 gm DAILYPRN PRN ORAL Constipation 06/12/17 15:30 07/12/17 15:29 Vancomycin HCl (Vanco rx to dose) 1 ea DAILY PRN MISC PER RX PROTOCOL 06/12/17 17:45 07/12/17 17:44 Vancomycin HCl 1 gm/Dextrose 275 ml @ 183.3 mls/ hr Q8H IVPB 06/12/17 20:00 06/17/17 19:59 06/13/17 04:27 ADRIENNE FERRELL Jun 13, 2017 09:31
[2017-06-13 10:08] LABS: ANISOCYTOSIS 1+; BAND NEUTROPHILS % (MANUAL) 0 % (0-8); BASOPHILS % (MANUAL) 1 % (0-2); EOSINOPHILS % (MANUAL) 4 % (0-3); HYPOCHROMASIA 1+; LYMPHOCYTES % (MANUAL) 4 % (20-45); NEUTROPHILS % (MANUAL) 83 % (45-75); PLATELET ESTIMATE ADEQUATE; PLATELET MORPHOLOGY NORMAL; TOTAL CELLS COUNTED 100
--- NOTE | 2017-06-13 10:33 | Diagnostic Imaging Report ---
Indication: Shortness of breath Comparison: 02/15/2017 Findings: Single view of the chest is obtained. Cardiac size is normal. Platelike atelectasis in the left lower lobe appears slightly improved. Lungs are otherwise clear. Tracheostomy tube is noted. No acute osseous abnormalities. Impression: No definite acute chest disease. Atelectasis left lower lobe, slightly improved. Tracheostomy tube.
[2017-06-13 12:00] VITALS: BP 157/76
[2017-06-13] MEDS ORDERED: NS 275ml ONE (15:54)
[2017-06-13] MEDS ORDERED: Tubing IV Secondary IV ONE (15:54)
[2017-06-13 16:00] VITALS: BP 147/79
--- NOTE | 2017-06-13 16:20 | Consultation ---
Consult Note Consult Note Cardiology for Dr. Baldwin Full note dictated #[id number] REMINGTON IRVIN Jun 13, 2017 16:20
[2017-06-13 20:00] VITALS: BP 117/69
[2017-06-13] MEDS: Piperacillin/Tazobactam 4.5 GM in NS 110 ML IVPB SCH (22:00)
--- NOTE | 2017-06-13 22:15 | Consultation ---
DATE OF CONSULTATION: 06/13/2017 INFECTIOUS DISEASE CONSULTATION CONSULTING PHYSICIAN: John Elizalde M.D. This consult is for coverage of Dr. Modi. PRIMARY ATTENDING PHYSICIAN: Patsy Wong M.D. REASON FOR CONSULTATION: Pneumonia, UTI. HISTORY OF PRESENT ILLNESS: The patient is a 42-year-old man who was recently discharged to [facility] [facility] and was then admitted yesterday for evaluation of pneumonia. He was receiving vancomycin and Levaquin. He was found to have leukocytosis, had thick secretion, and was tachycardic with heart rate up to 115. PAST MEDICAL HISTORY: Significant for diabetes mellitus type 1 since the age of 15, ventilator-dependent respiratory failure, anemia, pressure ulcer, persistent vegetative state, and functional quadriplegia. MEDICATIONS: Digoxin, Protonix, Zosyn, heparin, vancomycin, carbamazepine, DuoNeb inhaler, morphine, polyethylene glycol, and lorazepam. ALLERGIES: No known drug allergy. SOCIAL HISTORY: senior living resident. No other history is obtainable. PHYSICAL EXAMINATION: VITAL SIGNS: Temperature 98.2 degrees, pulse 95, blood pressure 127/67, respiratory rate 16; FiO2 is 35. HEAD AND NECK: Status post tracheostomy. HEART: Regular. LUNGS: Clear, on mechanical ventilator. ABDOMEN: Soft. G-tube in place. EXTREMITIES: No edema. He has bilateral footdrop. He has some movement in the upper extremities , paraplegic. LABORATORY AND DIAGNOSTIC DATA: UA showed WBC of 30-40, leukocyte esterase 2+, positive. WBC today is 13.3 coming up from 17.6, hemoglobin 10.4, hematocrit 31.7, and platelets 408,000. Sodium 140, potassium 3.6, chloride 102, bicarbonate 31, BUN 17, creatinine 0.8, and glucose 213. Albumin 2.1. IMPRESSION: Sepsis with leukocytosis and tachycardia. The patient seems to have pyuria. He has urinary tract infection/history of urinary tract infection before. He has pneumonia, although the chest x-ray does not seem to have significantly changed from the previous one a couple of months ago. The patient has diabetes mellitus type 1, had hypoglycemia at the time of admission, multiple pressure ulcers, and anemia. RECOMMENDATION: We will continue with Zosyn and vancomycin. We will follow up the cultures. At the end of my exam, I thank Dr. Wong for involving me in the care of this patient. John Elizalde M.D. DR: MARTY JOB#: [id number] CC: DEAN
[2017-06-14] VITALS (18 sets, daily range): BP systolic 99–158; BP diastolic 65–108
[2017-06-14] MEDS ORDERED: Vancomycin 1250mg/D5W 250ml 250 ML IVPB SCH
[2017-06-14] MEDS ORDERED: DEPAKENE250 MG/5 M GT ×2 (05:00→05:12)
[2017-06-14] MEDS ORDERED: NovoLOG Insulin Flexpen SUBQ STA (05:14)
[2017-06-14 05:21] LABS: EOSINOPHILS % (AUTO) 5.6 % (0.0-3.0); LYMPHOCYTES % (AUTO) 14.7 % (20.0-45.0); MEAN CORPUSCULAR HEMOGLOBIN 32.2 PG (27.0-31.0); MEAN CORPUSCULAR HGB CONC 31.5 G/DL (32.0-36.0); MEAN CORPUSCULAR VOLUME 102 FL (80-99); MEAN PLATELET VOLUME 6.2 FL (6.5-10.1); MONOCYTES % (AUTO) 4.1 % (1.0-10.0); NEUTROPHILS % (AUTO) 74.7 % (45.0-75.0); PLATELET COUNT 479 K/UL (150-450); RED BLOOD COUNT 3.63 M/UL (4.70-6.10); RED CELL DISTRIBUTION WIDTH 15.6 % (11.6-14.8); WHITE BLOOD COUNT 14.6 K/UL (4.8-10.8)
[2017-06-14] MEDS ORDERED: LANTUS SOL100 UNIT/1 SUBQ ×2 (05:21)
[2017-06-14 05:28] LABS: ALANINE AMINOTRANSFERASE 196 U/L (12-78); ALBUMIN/GLOBULIN RATIO 0.4 (1.0-2.7); ANION GAP 21 mmol/L (5-15); ASPARTATE AMINO TRANSFERASE 225 U/L (15-37); CARBON DIOXIDE 19 MMOL/L (21-32); CHLORIDE 101 MMOL/L (98-107); CREATININE 1.1 MG/DL (0.55-1.30); GLOMERULAR FILTRATION RATE > 60 mL/min (>60); MAGNESIUM 1.8 MG/DL (1.8-2.4); PHOSPHORUS 4.3 MG/DL (2.5-4.9); POTASSIUM 4.9 MMOL/L (3.5-5.1); SODIUM 141 MMOL/L (136-145); TOTAL PROTEIN 8.4 G/DL (6.4-8.2)
[2017-06-14] MEDS: Piperacillin/Tazobactam 4.5 GM in NS 110 ML IVPB SCH ×3 (06:02→22:16)
--- NOTE | 2017-06-14 07:30 | Consultation ---
DATE OF CONSULTATION: CARDIOLOGY CONSULTATION This is being done as a coverage for Dr. Baldwin. REQUESTING PHYSICIAN: Patsy Wong M.D. REASON FOR CONSULT: Sinus tachycardia. HISTORY OF PRESENT ILLNESS: History is obtained from the chart and treating providers as the patient is unable to give any history. The patient is a 42-year-old man with anoxic encephalopathy, quadriplegia. He is on chronic ventilator support with tracheostomy and is status post G-tube placement. He was transferred from the long-term care [facility] for evaluation of possible pneumonia. He had been taking Levaquin and vancomycin there, but had persistent purulent sputum, per the notes. At the facility, his white blood count was reported to be 23,000. He has been admitted and is being evaluated and treated for pneumonia and sepsis. In the emergency room, his blood pressure initially was 140/100 and pulse 85. Overnight, he had episodes of heart rate up to the 130s. Blood pressures have ranged from 106/60 to 157/76. Cardiology evaluation was requested. Per the notes, he has had an echo done in September of this year, which showed normal left ventricular systolic function and no significant valvular disease. PAST MEDICAL HISTORY: As noted above. History of anoxic encephalopathy, quadriplegia, chronic ventilator dependence, and history of pressure ulcers, and history of previous pneumonia. MEDICATIONS: Currently Zosyn 4.5 g IV every 8 hours, digoxin 0.125 mg daily per G-tube, Protonix 40 mg intravenously daily, subcutaneous heparin 5000 units q.12 h., vancomycin 1 gram every 8 hours, Tegretol 400 mg per G-tube t.i.d., albuterol/ipratropium nebulizer q.4 h. p.r.n., morphine p.r.n., and Zofran p.r.n. ALLERGIES: No known drug allergies. REVIEW OF SYSTEMS: Not obtainable from the patient or chart. PHYSICAL EXAMINATION: VITAL SIGNS: Blood pressure is 157/76, pulse 89 and regular, respirations 16, and temperature 99 degrees. GENERAL: A cachectic male, who is not responsive on the ventilator. HEENT: Normocephalic and atraumatic. Pupils are equal, round, and reactive to light. Oral mucous membranes are dry. NECK: Supple. Tracheostomy site clean. LUNGS: Bilateral scattered rhonchi. HEART: Regular S1, S2 with no murmurs, rubs, S3, or S4. ABDOMEN: Soft, nontender, and nondistended. G-tube in place. EXTREMITIES: No cyanosis, clubbing, or edema. NEUROLOGIC: Quadriplegia with flexion contractures of the upper extremities. No response to voice or commands. LABORATORY AND DIAGNOSTIC DATA: Hemoglobin 10.4, white blood count 13,300 and on admission, 17,600, and platelets 408,000. Sodium 140, potassium 3.6, chloride 102, bicarbonate 31, BUN 17, creatinine 0.8, and glucose 212. EKG shows sinus rhythm, large amount of baseline artifact, rate 78 beats per minute, axis 0 degrees, nonspecific T-wave changes, diffuse T-wave flattening. Chest x-ray shows normal cardiac silhouette, atelectasis in the left lower lobe. ASSESSMENT AND RECOMMENDATIONS: The patient is an unfortunate 42-year-old man with anoxic encephalopathy, quadriplegia, chronic ventilator dependence, and status post gastrostomy tube placement, who was admitted with pneumonia and sepsis. He has intermittent tachycardia, which appears to be sinus tachycardia up to the 130. He has been maintaining blood pressure and is normotensive to hypertensive. Intermittently, it is likely that his heart rate fluctuations are due to autonomic influences from his central nervous system injury. I would continue digoxin, which he has been taking and would continue telemetry monitoring. At this point, given sepsis and concern for possible development of hypotension in the setting of central nervous system injury, I would continue digoxin and monitor levels, especially if any change in renal function, would hold beta-blockers and calcium channel blockers at this point as he appears mainly with normal sinus rate. Dr. Baldwin will continue to follow the patient when he returns on as he is mostly with normal sinus rates. Management of his pneumonia and sepsis will be as per his primary physician. Ashtyn Saeed M.D. DR: Tara JOB#: [id number] CC:
[2017-06-14] MEDS ORDERED: Albuterol/Ipratropium 3ml neb HHN PRN (09:00)
[2017-06-14] MEDS ORDERED: Miralax 17gm pkt ORAL PRN (09:00)
[2017-06-14] MEDS ORDERED: Morphine Sulfate 4mg/ml Inj IVP PRN (09:00)
[2017-06-14] MEDS ORDERED: LORazepam Inj 2mg/ml 1ml IV PRN (09:00)
[2017-06-14] MEDS: Digoxin 0.125mg tab ORAL SCH (09:17)
[2017-06-14] MEDS: carBAMazepine 200mg tab GT SCH ×3 (09:17→17:11)
[2017-06-14] MEDS: Pantoprazole Inj IV SCH (09:18)
[2017-06-14] MEDS: Heparin 5000 units/ml inj SUBQ SCH ×2 (09:23→21:17)
--- NOTE | 2017-06-14 09:53 | Pulmonolgy Critical Care Note ---
Critical Care - Asmt/Plan Problems: (1) Seizure disorder (2) Vegetative state (3) Decubital ulcer (4) Feeding by G-tube (5) Pneumonia (6) Severe sepsis (7) Chronic respiratory failure Respiratory: monitor respiratory rate Cardiac: continue pressors, continue to monitor HR/BP Renal: F/U I&O, keep IV fluid, increase IV fluid, check electrolytes Gastrointestinal: continue feedings/current rate Endocrine: monitor blood sugar, check TSH, continue sliding scale insulin Hematologic: monitor H/H, transfuse if hgb<8.5 Neurologic: PRN Ativan, PRN Morphine, keep patient comfortable Affect: PRN ativan Prophylaxis: Protonix Notes Reviewed: renal Discussed with: nurses, consultants, keycase assemblerenergy manager - Objective Last 24 Hour Vital Signs Date Time Temp Pulse Resp B/P (MAP) Pulse Ox O2 Delivery O2 Flow Rate FiO2 06/14/17 09:17 125 06/14/17 09:00 99.8 121 16 102/66 96 Mechanical Ventilator 35 06/14/17 08:54 127 18 35 06/14/17 08:00 100.2 144 21 122/72 97 Mechanical Ventilator 35 06/14/17 08:00 35 06/14/17 08:00 141 06/14/17 07:02 133 19 35 06/14/17 05:28 82 16 35 06/14/17 05:08 99.0 06/14/17 04:02 142 06/14/17 04:00 100.2 127 17 158/108 94 Mechanical Ventilator 06/14/17 04:00 35 06/14/17 03:38 89 17 35 06/14/17 02:55 112 06/14/17 01:16 98 16 35 06/14/17 00:00 98.6 100 17 141/92 100 Mechanical Ventilator 06/14/17 00:00 35 06/14/17 00:00 100 06/13/17 23:40 111 17 35 06/13/17 21:16 95 16 35 06/13/17 20:00 98.6 94 16 117/69 100 Mechanical Ventilator 06/13/17 20:00 35 06/13/17 20:00 89 06/13/17 19:23 90 16 35 06/13/17 17:00 103 16 35 06/13/17 16:00 89 06/13/17 16:00 35 06/13/17 16:00 98.2 88 16 147/79 98 Mechanical Ventilator 35 06/13/17 15:00 98 16 35 06/13/17 13:00 102 16 35 06/13/17 12:00 35 06/13/17 12:00 89 06/13/17 12:00 99.0 87 16 157/76 98 Mechanical Ventilator 35 06/13/17 11:00 89 16 35 Status: somnolent Condition: critical HEENT: atraumatic Lungs: clear Heart: HR/BP stable, HR/BP unstable Abdomen: soft, non-tender, active bowel sounds Extremities: no C/C/E Decubiti: location, stage Micro: Microbiology Date/Time Source Procedure Growth Status 06/12/17 13:36 Blood Blood Culture - Preliminary NO GROWTH AFTER 24 HOURS Resulted 06/12/17 13:26 Blood Blood Culture - Preliminary NO GROWTH AFTER 24 HOURS Resulted 06/12/17 15:40 Nasal Nares MRSA Culture - Preliminary Resulted 06/12/17 15:40 Urine,Clean Catch Urine Culture - Preliminary YEAST Resulted Accucheck: 500 Critical Care - Subjective ROS Limited/Unobtainable: Yes ICU Day: 1 Interval Events: transferred to ICU because of status epilepticus. FI02: 35 Vent Support Breath Rate: 16 Vent Support Mode: AC Vent Tidal Volume: 600 Sputum Amount: Small PEEP: 5.0 PIP: 20 Tube Feeding Amount: 60 I&O: Intake and Output 06/14/17 06/15/17 19:00 07:00 Intake Total 110 ml Output Total 450 ml Balance -340 ml Intake Free Water 50 ml Tube Feeding 60 ml Output Urine Total 450 ml CXR: no change Labs: Laboratory Tests Test 06/13/17 19:00 06/14/17 04:40 Vancomycin Level Trough 20.3 ug/mL (5.0-12.0) H White Blood Count 14.6 K/UL (4.8-10.8) H Red Blood Count 3.63 M/UL (4.70-6.10) L Hemoglobin 11.7 G/DL (14.2-18.0) L Hematocrit 37.1 % (42.0-52.0) L Mean Corpuscular Volume 102 FL (80-99) H Mean Corpuscular Hemoglobin 32.2 PG (27.0-31.0) H Mean Corpuscular Hemoglobin Concent 31.5 G/DL (32.0-36.0) L Red Cell Distribution Width 15.6 % (11.6-14.8) H Platelet Count 479 K/UL (150-450) H Mean Platelet Volume 6.2 FL (6.5-10.1) L Neutrophils (%) (Auto) 74.7 % (45.0-75.0) Lymphocytes (%) (Auto) 14.7 % (20.0-45.0) L Monocytes (%) (Auto) 4.1 % (1.0-10.0) Eosinophils (%) (Auto) 5.6 % (0.0-3.0) H Basophils (%) (Auto) 1.0 % (0.0-2.0) Sodium Level 141 MMOL/L (136-145) Potassium Level 4.9 MMOL/L (3.5-5.1) Chloride Level 101 MMOL/L (98-107) Carbon Dioxide Level 19 MMOL/L (21-32) L Anion Gap 21 mmol/L (5-15) H Blood Urea Nitrogen 31 mg/dL (7-18) H Creatinine 1.1 MG/DL (0.55-1.30) Estimat Glomerular Filtration Rate > 60 mL/min (>60) Glucose Level 524 MG/DL (74-106) #*H Calcium Level 10.0 MG/DL (8.5-10.1) Phosphorus Level 4.3 MG/DL (2.5-4.9) Magnesium Level 1.8 MG/DL (1.8-2.4) Total Bilirubin 0.8 MG/DL (0.2-1.0) Aspartate Amino Transf (AST/SGOT) 225 U/L (15-37) H Alanine Aminotransferase (ALT/SGPT) 196 U/L (12-78) H Alkaline Phosphatase 805 U/L (46-116) H Total Protein 8.4 G/DL (6.4-8.2) H Albumin 2.6 G/DL (3.4-5.0) L Globulin 5.8 g/dL Albumin/Globulin Ratio 0.4 (1.0-2.7) L Carbamazepine (Tegretol) Level 3.8 ug/mL (4.0-12.0) L GAIL MULTANI Jun 14, 2017 09:53
[2017-06-14] MEDS ORDERED: NovoLOG Insulin Flexpen SUBQ SCH (11:30)
[2017-06-14] MEDS: Vancomycin 1250mg/D5W 250ml 250 ML IVPB SCH (11:55)
[2017-06-14] MEDS: NovoLOG Insulin Flexpen SUBQ SCH ×2 (11:58→17:13)
--- NOTE | 2017-06-14 12:31 | Neurology Progress Note ---
Interim History Interim History ROS Limited/Unobtainable: Yes Review of Systems Neuro Review of Systems # [id number] Objective Physical Exam Last Vital Signs Date Time Temp Pulse Resp B/P (MAP) Pulse Ox O2 Delivery O2 Flow Rate FiO2 06/14/17 12:00 35 06/14/17 12:00 98.6 108 16 106/67 100 Mechanical Ventilator Laboratory Tests Test 06/13/17 19:00 06/14/17 04:40 Vancomycin Level Trough 20.3 ug/mL (5.0-12.0) H White Blood Count 14.6 K/UL (4.8-10.8) H Red Blood Count 3.63 M/UL (4.70-6.10) L Hemoglobin 11.7 G/DL (14.2-18.0) L Hematocrit 37.1 % (42.0-52.0) L Mean Corpuscular Volume 102 FL (80-99) H Mean Corpuscular Hemoglobin 32.2 PG (27.0-31.0) H Mean Corpuscular Hemoglobin Concent 31.5 G/DL (32.0-36.0) L Red Cell Distribution Width 15.6 % (11.6-14.8) H Platelet Count 479 K/UL (150-450) H Mean Platelet Volume 6.2 FL (6.5-10.1) L Neutrophils (%) (Auto) 74.7 % (45.0-75.0) Lymphocytes (%) (Auto) 14.7 % (20.0-45.0) L Monocytes (%) (Auto) 4.1 % (1.0-10.0) Eosinophils (%) (Auto) 5.6 % (0.0-3.0) H Basophils (%) (Auto) 1.0 % (0.0-2.0) Sodium Level 141 MMOL/L (136-145) Potassium Level 4.9 MMOL/L (3.5-5.1) Chloride Level 101 MMOL/L (98-107) Carbon Dioxide Level 19 MMOL/L (21-32) L Anion Gap 21 mmol/L (5-15) H Blood Urea Nitrogen 31 mg/dL (7-18) H Creatinine 1.1 MG/DL (0.55-1.30) Estimat Glomerular Filtration Rate > 60 mL/min (>60) Glucose Level 524 MG/DL (74-106) #*H Calcium Level 10.0 MG/DL (8.5-10.1) Phosphorus Level 4.3 MG/DL (2.5-4.9) Magnesium Level 1.8 MG/DL (1.8-2.4) Total Bilirubin 0.8 MG/DL (0.2-1.0) Aspartate Amino Transf (AST/SGOT) 225 U/L (15-37) H Alanine Aminotransferase (ALT/SGPT) 196 U/L (12-78) H Alkaline Phosphatase 805 U/L (46-116) H Total Protein 8.4 G/DL (6.4-8.2) H Albumin 2.6 G/DL (3.4-5.0) L Globulin 5.8 g/dL Albumin/Globulin Ratio 0.4 (1.0-2.7) L Carbamazepine (Tegretol) Level 3.8 ug/mL (4.0-12.0) L ARABELLA LOCKETT Jun 14, 2017 12:31
[2017-06-14] MEDS: levETIRAcetam 500mg/5ml Liquid NG SCH ×2 (12:49→21:17)
--- NOTE | 2017-06-14 13:40 | Infectious Diseases Prog Note ---
Assessment/Plan Assessment/Plan A: Low grade fever Sepsis Leukocytosis Probable UTI UCX : Xenia ( Colonizer ) Probable Pneumonia, Cxray : Sacral Ulcer : Not infected grossly Blood cx : GPC 1/2 elevated Alk Ph , Ro Billiay disease Diabetes mellitus type 1 Ventilator-dependent respiratory failure Anemia SZ Persistent vegetative state Functional quadriplegia. P: We will continue with Zosyn and vancomycin d# 2 Monitor cultures (B, U, S ) Monitor BMP Monitor CBC Monitor Cxray US of Abd Subjective Allergies: Coded Allergies: No Known Allergies (Unverified , 07/21/16) Objective Vital Signs Last 24 Hour Vital Signs Date Time Temp Pulse Resp B/P (MAP) Pulse Ox O2 Delivery O2 Flow Rate FiO2 06/14/17 13:00 106 16 101/67 98 Mechanical Ventilator 35 06/14/17 12:00 35 06/14/17 12:00 98.6 108 16 106/67 100 Mechanical Ventilator 35 06/14/17 11:00 109 16 35 06/14/17 11:00 109 16 105/67 100 Mechanical Ventilator 35 06/14/17 10:00 117 19 99/69 98 Mechanical Ventilator 35 06/14/17 09:17 125 06/14/17 09:00 99.8 121 16 102/66 96 Mechanical Ventilator 35 06/14/17 08:54 127 18 35 06/14/17 08:00 100.2 144 21 122/72 97 Mechanical Ventilator 35 06/14/17 08:00 35 06/14/17 08:00 141 06/14/17 07:02 133 19 35 06/14/17 05:28 82 16 35 06/14/17 05:08 99.0 06/14/17 04:02 142 06/14/17 04:00 100.2 127 17 158/108 94 Mechanical Ventilator 06/14/17 04:00 35 06/14/17 03:38 89 17 35 06/14/17 02:55 112 06/14/17 01:16 98 16 35 06/14/17 00:00 98.6 100 17 141/92 100 Mechanical Ventilator 06/14/17 00:00 35 06/14/17 00:00 100 06/13/17 23:40 111 17 35 06/13/17 21:16 95 16 35 06/13/17 20:00 98.6 94 16 117/69 100 Mechanical Ventilator 06/13/17 20:00 35 06/13/17 20:00 89 06/13/17 19:23 90 16 35 06/13/17 17:00 103 16 35 06/13/17 16:00 89 06/13/17 16:00 35 06/13/17 16:00 98.2 88 16 147/79 98 Mechanical Ventilator 35 06/13/17 15:00 98 16 35 Height (Feet): 5 Height (Inches): 8.00 Weight (Pounds): 160 Microbiology Date/Time Source Procedure Growth Status 06/12/17 13:36 Blood Blood Culture - Preliminary NO GROWTH AFTER 24 HOURS Resulted 06/12/17 13:26 Blood Blood Culture - Preliminary Resulted 06/12/17 15:40 Nasal Nares MRSA Culture - Final Staphylococcus Aureus - Mrsa Complete 06/12/17 15:40 Urine,Clean Catch Urine Culture - Preliminary YEAST Resulted Laboratory Tests Test 06/13/17 19:00 06/14/17 04:40 Vancomycin Level Trough 20.3 ug/mL (5.0-12.0) H White Blood Count 14.6 K/UL (4.8-10.8) H Red Blood Count 3.63 M/UL (4.70-6.10) L Hemoglobin 11.7 G/DL (14.2-18.0) L Hematocrit 37.1 % (42.0-52.0) L Mean Corpuscular Volume 102 FL (80-99) H Mean Corpuscular Hemoglobin 32.2 PG (27.0-31.0) H Mean Corpuscular Hemoglobin Concent 31.5 G/DL (32.0-36.0) L Red Cell Distribution Width 15.6 % (11.6-14.8) H Platelet Count 479 K/UL (150-450) H Mean Platelet Volume 6.2 FL (6.5-10.1) L Neutrophils (%) (Auto) 74.7 % (45.0-75.0) Lymphocytes (%) (Auto) 14.7 % (20.0-45.0) L Monocytes (%) (Auto) 4.1 % (1.0-10.0) Eosinophils (%) (Auto) 5.6 % (0.0-3.0) H Basophils (%) (Auto) 1.0 % (0.0-2.0) Sodium Level 141 MMOL/L (136-145) Potassium Level 4.9 MMOL/L (3.5-5.1) Chloride Level 101 MMOL/L (98-107) Carbon Dioxide Level 19 MMOL/L (21-32) L Anion Gap 21 mmol/L (5-15) H Blood Urea Nitrogen 31 mg/dL (7-18) H Creatinine 1.1 MG/DL (0.55-1.30) Estimat Glomerular Filtration Rate > 60 mL/min (>60) Glucose Level 524 MG/DL (74-106) #*H Calcium Level 10.0 MG/DL (8.5-10.1) Phosphorus Level 4.3 MG/DL (2.5-4.9) Magnesium Level 1.8 MG/DL (1.8-2.4) Total Bilirubin 0.8 MG/DL (0.2-1.0) Aspartate Amino Transf (AST/SGOT) 225 U/L (15-37) H Alanine Aminotransferase (ALT/SGPT) 196 U/L (12-78) H Alkaline Phosphatase 805 U/L (46-116) H Total Protein 8.4 G/DL (6.4-8.2) H Albumin 2.6 G/DL (3.4-5.0) L Globulin 5.8 g/dL Albumin/Globulin Ratio 0.4 (1.0-2.7) L Carbamazepine (Tegretol) Level 3.8 ug/mL (4.0-12.0) L Current Medications Medications (Trade) Dose Ordered Sig/Guillermo Route PRN Reason Start Time Stop Time Status Last Admin Dose Admin Acetaminophen (Tylenol) 650 mg Q4H PRN ORAL T>100.5 06/14/17 09:00 07/12/17 08:59 Albuterol/ Ipratropium (Albuterol/ Ipratropium) 3 ml Q4H PRN HHN Shortness of Breath 06/14/17 09:00 06/17/17 08:59 Carbamazepine (TEGretol) 400 mg TID GT 06/14/17 09:00 12 17:59 06/14/17 12:49 Dextrose (Dextrose 50%) STAT PRN IV Hypoglycemia 06/14/17 09:45 07/14/17 09:44 Digoxin (Lanoxin) 0.125 mg DAILY ORAL 06/14/17 09:00 07/13/17 08:59 06/14/17 09:17 Heparin Sodium (Porcine) (Heparin 5000 units/ml) 5,000 units EVERY 12 HOURS SUBQ 06/14/17 09:00 07/12/17 20:59 06/14/17 09:23 Insulin Aspart (NovoLOG) Q6HR SUBQ 06/14/17 12:00 07/14/17 11:29 06/14/17 11:58 Levetiracetam (Keppra) 1,500 mg Q12HR NG 06/14/17 12:45 07/14/17 12:44 06/14/17 12:49 Lorazepam (Ativan 2mg/ml 1ml) 2 mg Q2H PRN IV For Anxiety 06/14/17 09:00 06/19/17 08:59 Morphine Sulfate (Morphine Sulfate) 4 mg Q4H PRN IVP Severe Pain (Pain Scale 7-10) 06/14/17 09:00 06/19/17 08:59 Ondansetron HCl (Zofran) 4 mg Q6H PRN IVP Nausea & Vomiting 06/14/17 09:00 07/12/17 08:59 Pantoprazole (Protonix) 40 mg DAILY IV 06/14/17 09:00 07/13/17 08:59 06/14/17 09:18 Piperacillin Sod/ Tazobactam Sod 4.5 gm/Sodium Chloride 110 ml @ 27.5 mls/hr EVERY 8 HOURS IVPB 06/14/17 14:00 06/18/17 21:59 Polyethylene Glycol (Miralax) 17 gm DAILYPRN PRN ORAL Constipation 06/14/17 09:00 07/12/17 08:59 Vancomycin HCl (Vanco rx to dose) 1 ea DAILY PRN MISC PER RX PROTOCOL 06/14/17 09:00 07/12/17 17:44 Vancomycin HCl/ Dextrose 250 ml @ 166.636 mls/hr Q12H IVPB 06/14/17 12:00 06/19/17 00:00 06/14/17 11:55 EVERETTE MACK M.D. Jun 14, 2017 13:40
--- NOTE | 2017-06-14 13:58 | Wound Care Consultation ---
Wound Assessment Wound Assessment #1: Wound Number: 1 Wound Present on Admission: Yes New Wound: No Status Change of Wound: No Wound Location Body Site Modif: mid Wound Location Body Site: other - sacrococcygeal Wound Type: pressure ulcer Chinyere Test: Does not Chinyere Pressure Ulcer Stage: IV Wound Thickness: Full Thickness Wound Length: 8.0 Wound Width: 6.0 Wound Depth: 1.5 Percent of Wound [place]/Red: 80 Percent of Wound Bed Yellow/Wh: 20 Wound Drainage Description: Serosanguineous Wound Drainage Amount: Moderate Wound Drainage Odor: None/Absent Tissue Surrounding Wound: Macerated Wound General Appearance: Reddened, Draining, Muscle Visible Wound Assessment #2: Wound Number: 2 Wound Present on Admission: Yes New Wound: No Status Change of Wound: No Wound Location Body Site Modif: right Wound Location Body Site: heel Wound Type: pressure ulcer Ch[place] Test: Does not [place] Pressure Ulcer Stage: Deep Tissue Injury Wound Thickness: Full Thickness Wound Length: 2.5 Wound Width: 3.0 Wound Depth: utd Percent of Wound [place]/Red: 50 Percent of Wound Purple/Maroon: 50 Wound Drainage Amount: None Wound Drainage Odor: None/Absent Tissue Surrounding Wound: Intact Wound General Appearance: Reddened Wound Assessment #3: Wound Number: 3 Wound Present on Admission: Yes New Wound: No Status Change of Wound: No Wound Location Body Site Modif: left Wound Location Body Site: heel Wound Type: pressure ulcer [place] Test: Does not [place] Pressure Ulcer Stage: Unstageable Wound Thickness: Full Thickness Wound Length: 2.0 Wound Width: 2.0 Wound Depth: utd Percent of Wound Bed Yellow/Wh: 100 Wound Drainage Description: Serosanguineous Wound Drainage Amount: Scant Wound Drainage Odor: None/Absent Tissue Surrounding Wound: Erythemic Wound General Appearance: Reddened - yellow, Draining Wound Assessment #4: Wound Number: 4 Wound Present on Admission: Yes New Wound: No Status Change of Wound: No Wound Location Body Site Modif: left, lower, anterior Wound Location Body Site: leg Wound Type: other - open wound with scar tissue Chinyere Test: Does not [place] Wound Thickness: Full Thickness Wound Length: 13.0 Wound Width: 2.0 Wound Depth: 0.1 Percent of Wound [place]/Red: 100 Wound Drainage Description: Serosanguineous Wound Drainage Amount: Scant Wound Drainage Odor: None/Absent Tissue Surrounding Wound: sacr tissue Wound General Appearance: Reddened, Draining Wound Assessment #5: Wound Number: 5 Wound Present on Admission: Yes New Wound: No Status Change of Wound: No Wound Location Body Site Modif: left Wound Location Body Site: ischial tuberosity Wound Type: pressure ulcer [place] Test: Does not [place] Pressure Ulcer Stage: III - healing Wound Thickness: Full Thickness Wound Length: 5.0 Wound Width: 5.0 Wound Depth: less than 0.1 Percent of Wound [place]/Red: 100 Wound Drainage Description: Serosanguineous Wound Drainage Amount: Scant Wound Drainage Odor: None/Absent Tissue Surrounding Wound: Intact Wound General Appearance: Reddened, Draining Wound Assessment #6: Wound Number: 6 Wound Present on Admission: Yes New Wound: No Status Change of Wound: No Wound Location Body Site Modif: right Wound Location Body Site: ear Wound Type: scab Chinyere Test: Does not [place] Wound Thickness: Full Thickness Wound Length: 2.0 Wound Width: 0.5 Percent of Wound Bed Yellow/Wh: 100 - dry Wound Drainage Amount: None Wound Drainage Odor: None/Absent Tissue Surrounding Wound: Erythemic Wound General Appearance: Reddened - dry yellow scab, Draining Wound Comment #1 Sacrococcygeal stage IV pressure ulcer #2 Right ear with yellow dry scab resolving stage III pressure ulcer #3 Right heel DTI pressure ulcer #4 Left heel unstageable pressure ulcer #5 Left lower anterior leg open wound with extensive scar tissue #6 Left ischial tuberosity resolving stage III pressure ulcer #7 Left and right scapula with full thickness scar tissue #8 Left lateral malleolus with scar tissue #9 Right anterior lower leg with scar tissue Recommendation -Local wound care per protocol -Optimize nutrition -Low air loss P200 mattress -Offload both heels -Heel protector on both heels -Turn and reposition -Keep clean and dry -Assess and f/u accordingly for any changes BETTIE FRANCISCO RN Jun 14, 2017 13:58
--- NOTE | 2017-06-14 17:01 | Consultation ---
DATE OF CONSULTATION: 06/14/2017 NEUROLOGICAL CONSULTATION DATE OF ADMISSION: 06/12/2017. REQUESTING PHYSICIAN: Patsy Wong M.D. PRIMARY PHYSICIAN: Andres Wakefield M.D. HISTORY OF PRESENT ILLNESS: This is a 42-year-old man with persistent vegetative state, brought to this facility for evaluation of pneumonia. While under observation, the patient had a witnessed generalized seizure episode. According to the patient's mother, who was present during this examination, year and half ago he was found to be unresponsive. She found him lying unresponsive with respiratory failure, hypoglycemia. Subsequently, he was intubated. G-tube was placed and he was sent to nursing facility. Initially, he had frequent generalized seizures. He was placed on Tegretol and Keppra. His last seizure was several months ago. The patient treated for protein-caloric malnutrition, respiratory failure, recurrent pneumonia. Following current admission, chest x-ray was obtained revealing no definitive acute chest disease with left lobe atelectasis. Tracheostomy tube was in place. His laboratory work included CBC study with WBC 17.6, hemoglobin 11.5, hematocrit 36.1. Coagulation panel with PTT of 34. Urinalysis 30 to 40 WBCs, 2+ leukocyte esterase. Toxicology panel was carbamazepine level of 3.8. Chemistry panel, anion gap of 21, BUN of 31, blood sugar fluctuating from 43 on admission, 524 this morning. AST elevated 225 and 196 with alkaline phosphatase 85, and albumin 2.6. The patient's treatment prior to admission included albuterol, Dulcolax, carbamazepine 400 mg t.i.d., digoxin, gemfibrozil, insulin, Keppra 500 mg b.i.d., Ativan 1 mg, metoprolol, midodrine, omeprazole, Depakote, vitamin C, and zinc. ALLERGIES: None reported. SOCIAL HISTORY: Resident of a nursing facility. FAMILY HISTORY: Noncontributory. PHYSICAL EXAMINATION: GENERAL: A well-developed, cachectic, and ill-appearing man, lying in bed, ventilator dependent. VITAL SIGNS: His vital signs now include heart rate of 108, temperature 98.6 degrees, blood pressure 106/67, pulse oximetry 100%. HEENT: Head: Normocephalic. No evidence of trauma. Eyes, ears, and throat are clear. NECK: Supple. No meningeal signs. MUSCULOSKELETAL: Significant diffuse muscle atrophy. No spontaneous movement. Peripheral pulses 1+ symmetric. MENTAL STATUS: The patient is unresponsive to voice. His mother asked to open eyes, look at her, he was unable to follow. The patient was able to open spontaneously eyes with no eye contact. CRANIAL NERVES II: Pupils are 3 mm responding to light. Extraocular movement, left eye exotropia. CRANIAL NERVES V: Normal corneal responses. CRANIAL NERVE VII: No fascial atrophy. CRANIAL NERVES VIII: Unable to test. CRANIAL NERVES IX TO XII: Absent gag response. MOTOR EXAMINATION: Diffuse rigidity with no spontaneous movement in both upper and lower extremities. Significant diffuse muscle wasting. Deep tendon reflexes depressed bilaterally. Plantar responses positive Babinski bilaterally. SENSORY EXAMINATION: No response to pin stimulation. IMPRESSION: 1. Status post severe anoxic encephalopathy with persistent vegetative state. 2. Chronic seizure disorder exacerbation. 3. Urinary tract infection. 4. Abnormal liver enzymes. 5. Diabetes type 2, poor control. 6. Severe protein malnutrition. RECOMMENDATION: I discussed the patient's status with his mother, who is prepared to find out that the patient is in a vegetative state. 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 Current examination does not reveal evidence of locked-in, but rather vegetative state. Abnormal liver enzymes. For this reason, I will discontinue Depakote. I will adjust Keppra up to 2000 mg b.i.d. Hold all unessential treatment. Prognosis is quite poor. There is no neurological basis for any clinical improvement. DNR/DNI is appropriate. Thank you for allowing me to see this interesting patient in neurological consultation. Daniele Benitez M.D. DR: Pete JOB#: [id number] CC:
--- NOTE | 2017-06-14 20:43 | Diagnostic Imaging Report ---
APPROVED REPORT CPT Code: 27529 Present Symptoms Shortness of breath Past History Prior Lower Extremity Venous DuplexDate : 09/14/2016 Comments :No acute DVT BILATERAL: Imaging reveals a patent deep venous system bilaterally. There is no evidence of thrombus within the femoral, popliteal or tibial segments. The greater saphenous veins are also within normal limits. Doppler indicates normal spontaneous flow within these segments.
[2017-06-15] VITALS (14 sets, daily range): BP systolic 102–126; BP diastolic 62–81
[2017-06-15] MEDS: Vancomycin 1250mg/D5W 250ml 250 ML IVPB SCH ×2 (00:18→11:25)
[2017-06-15] MEDS: NovoLOG Insulin Flexpen SUBQ SCH ×4 (00:27→17:52)
[2017-06-15 05:01] LABS: BASOPHILS % (AUTO) 1.1 % (0.0-2.0); EOSINOPHILS % (AUTO) 14.3 % (0.0-3.0); LYMPHOCYTES % (AUTO) 20.8 % (20.0-45.0); MEAN CORPUSCULAR HGB CONC 33.5 G/DL (32.0-36.0); MEAN CORPUSCULAR VOLUME 98 FL (80-99); MEAN PLATELET VOLUME 6.3 FL (6.5-10.1); MONOCYTES % (AUTO) 7.5 % (1.0-10.0); NEUTROPHILS % (AUTO) 56.2 % (45.0-75.0); PLATELET COUNT 420 K/UL (150-450); RED BLOOD COUNT 3.36 M/UL (4.70-6.10); RED CELL DISTRIBUTION WIDTH 14.6 % (11.6-14.8); WHITE BLOOD COUNT 10.6 K/UL (4.8-10.8)
[2017-06-15 05:26] LABS: ANION GAP 9 mmol/L (5-15); CARBON DIOXIDE 29 MMOL/L (21-32); CHLORIDE 108 MMOL/L (98-107); POTASSIUM 3.5 MMOL/L (3.5-5.1); SODIUM 146 MMOL/L (136-145)
[2017-06-15 05:50] LABS: ALANINE AMINOTRANSFERASE 166 U/L (12-78); ASPARTATE AMINO TRANSFERASE 124 U/L (15-37); CALCIUM 9.4 MG/DL (8.5-10.1); GLOMERULAR FILTRATION RATE > 60 mL/min (>60); MAGNESIUM 1.7 MG/DL (1.5-2.4); PHOSPHORUS 3.1 MG/DL (2.5-4.9); TOTAL PROTEIN 7.6 G/DL (6.4-8.2)
[2017-06-15] MEDS: Piperacillin/Tazobactam 4.5 GM in NS 110 ML IVPB SCH (05:58)
[2017-06-15] MEDS: Pantoprazole Inj IV SCH (08:19)
[2017-06-15] MEDS: carBAMazepine 200mg tab GT SCH ×3 (08:19→17:50)
[2017-06-15] MEDS: levETIRAcetam 500mg/5ml Liquid NG SCH ×2 (08:19→20:03)
[2017-06-15] MEDS: Digoxin 0.125mg tab ORAL SCH (08:19)
[2017-06-15] MEDS: Heparin 5000 units/ml inj SUBQ SCH ×2 (08:24→20:04)
--- NOTE | 2017-06-15 09:25 | Cardiology Progress Note ---
Assessment/Plan Assessment/Plan sinus tachy ? demand vs autonomic disorder anoxic encephalopathy, quadriplegia, chronic ventilator dependence, and status post gastrostomy tube placement, who was admitted with pneumonia and sepsis. bacteremia labs noted duplex neg cxr atlelectesis tele reviwed sinu no sig tachy on abx check dig level Subjective ROS Limited/Unobtainable: Yes Objective Last 24 Hour Vital Signs Date Time Temp Pulse Resp B/P (MAP) Pulse Ox O2 Delivery O2 Flow Rate FiO2 06/15/17 09:10 85 16 35 06/15/17 08:19 83 06/15/17 08:00 98.6 90 16 109/76 100 Mechanical Ventilator 35 06/15/17 08:00 35 06/15/17 07:25 96 16 35 06/15/17 07:00 86 16 109/75 100 Mechanical Ventilator 35 06/15/17 06:00 84 16 116/75 100 Mechanical Ventilator 35 06/15/17 05:12 84 16 35 06/15/17 05:00 85 16 113/70 100 Mechanical Ventilator 35 06/15/17 04:00 99.0 85 16 102/67 100 Mechanical Ventilator 35 06/15/17 04:00 35 06/15/17 04:00 85 06/15/17 03:21 89 16 35 06/15/17 03:00 90 16 113/69 100 Mechanical Ventilator 35 06/15/17 02:00 91 16 111/71 100 Mechanical Ventilator 35 06/15/17 01:30 99 16 35 06/15/17 01:00 91 16 110/64 100 Mechanical Ventilator 35 06/15/17 00:00 99.2 92 16 106/64 100 Mechanical Ventilator 35 06/15/17 00:00 92 06/15/17 00:00 35 06/14/17 23:30 92 16 35 06/14/17 23:00 96 16 108/70 100 Mechanical Ventilator 35 06/14/17 22:00 123 16 135/80 100 Mechanical Ventilator 35 06/14/17 21:04 99 16 35 06/14/17 21:00 96 16 111/69 100 Mechanical Ventilator 35 06/14/17 20:00 99.0 96 16 116/78 100 Mechanical Ventilator 35 06/14/17 20:00 96 06/14/17 20:00 35 06/14/17 19:30 96 16 35 06/14/17 19:00 94 16 102/65 100 Mechanical Ventilator 35 06/14/17 18:00 100 16 105/70 100 Mechanical Ventilator 35 06/14/17 17:10 118 16 35 06/14/17 17:00 102 16 124/83 100 Mechanical Ventilator 35 06/14/17 16:00 109 06/14/17 16:00 35 06/14/17 16:00 98.7 99 16 107/65 100 Mechanical Ventilator 35 06/14/17 15:20 106 16 35 06/14/17 15:00 114 16 104/66 95 Mechanical Ventilator 35 06/14/17 14:00 111 16 106/72 98 Mechanical Ventilator 35 06/14/17 13:00 106 16 101/67 98 Mechanical Ventilator 35 06/14/17 13:00 108 16 35 06/14/17 12:00 107 06/14/17 12:00 35 06/14/17 12:00 98.6 108 16 106/67 100 Mechanical Ventilator 35 06/14/17 11:00 109 16 35 06/14/17 11:00 109 16 105/67 100 Mechanical Ventilator 35 06/14/17 10:00 117 19 99/69 98 Mechanical Ventilator 35 General Appearance: no apparent distress, patient on isolation, isolation precautions, other - not repsonsive or communicative Neck: supple, other - trach Cardiovascular: normal rate, regular rhythm Respiratory/Chest: lungs clear - anteriorly Abdomen: non tender, soft Extremities: no swelling Intake and Output 06/15/17 06/16/17 19:00 07:00 Intake Total 127.5 ml Output Total 30 ml Balance 97.5 ml Intake Free Water 30 ml IV Total 27.5 ml Tube Feeding 70 ml Output Urine Total 30 ml Laboratory Tests Test 06/14/17 23:15 06/15/17 04:00 Vancomycin Level Trough 14.1 ug/mL (5.0-12.0) H White Blood Count 10.6 K/UL (4.8-10.8) Red Blood Count 3.36 M/UL (4.70-6.10) L Hemoglobin 11.1 G/DL (14.2-18.0) L Hematocrit 33.1 % (42.0-52.0) L Mean Corpuscular Volume 98 FL (80-99) Mean Corpuscular Hemoglobin 33.0 PG (27.0-31.0) H Mean Corpuscular Hemoglobin Concent 33.5 G/DL (32.0-36.0) Red Cell Distribution Width 14.6 % (11.6-14.8) Platelet Count 420 K/UL (150-450) Mean Platelet Volume 6.3 FL (6.5-10.1) L Neutrophils (%) (Auto) 56.2 % (45.0-75.0) Lymphocytes (%) (Auto) 20.8 % (20.0-45.0) Monocytes (%) (Auto) 7.5 % (1.0-10.0) Eosinophils (%) (Auto) 14.3 % (0.0-3.0) H Basophils (%) (Auto) 1.1 % (0.0-2.0) Sodium Level 146 MMOL/L (136-145) H Potassium Level 3.5 MMOL/L (3.5-5.1) Chloride Level 108 MMOL/L (98-107) H Carbon Dioxide Level 29 MMOL/L (21-32) Anion Gap 9 mmol/L (5-15) Blood Urea Nitrogen 27 mg/dL (7-18) H Creatinine 1.0 MG/DL (0.55-1.30) Estimat Glomerular Filtration Rate > 60 mL/min (>60) Glucose Level 217 MG/DL (74-106) #H Calcium Level 9.4 MG/DL (8.5-10.1) Phosphorus Level 3.1 MG/DL (2.5-4.9) Magnesium Level 1.7 MG/DL (1.5-2.4) Total Bilirubin 0.3 MG/DL (0.2-1.0) Aspartate Amino Transf (AST/SGOT) 124 U/L (15-37) H Alanine Aminotransferase (ALT/SGPT) 166 U/L (12-78) H Alkaline Phosphatase 682 U/L (46-116) H Total Protein 7.6 G/DL (6.4-8.2) Albumin 2.4 G/DL (3.4-5.0) L Globulin 5.2 g/dL Microbiology Date/Time Source Procedure Growth Status 06/12/17 13:36 Blood Blood Culture - Preliminary NO GROWTH AFTER 48 HOURS Resulted 06/12/17 13:26 Blood Blood Culture - Preliminary Staphylococcus Sp Coag Neg Resulted 06/12/17 21:00 Sputum Gram Stain - Final Resulted 06/12/17 21:00 Sputum Sputum Culture - Preliminary Resulted 06/12/17 15:40 Nasal Nares MRSA Culture - Final Staphylococcus Aureus - Mrsa Complete 06/12/17 15:40 Urine,Clean Catch Urine Culture - Final Xenia Tropicalis Complete FRANCIA DELGADO Jun 15, 2017 09:25
--- NOTE | 2017-06-15 09:29 | Pulmonolgy Critical Care Note ---
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 Discussed with: nurses, consultants, lead case managermanager [place] - Objective Last 24 Hour Vital Signs Date Time Temp Pulse Resp B/P (MAP) Pulse Ox O2 Delivery O2 Flow Rate FiO2 06/15/17 09:10 85 16 35 06/15/17 08:19 83 06/15/17 08:00 98.6 90 16 109/76 100 Mechanical Ventilator 35 06/15/17 08:00 35 06/15/17 07:25 96 16 35 06/15/17 07:00 86 16 109/75 100 Mechanical Ventilator 35 06/15/17 06:00 84 16 116/75 100 Mechanical Ventilator 35 06/15/17 05:12 84 16 35 06/15/17 05:00 85 16 113/70 100 Mechanical Ventilator 35 06/15/17 04:00 99.0 85 16 102/67 100 Mechanical Ventilator 35 06/15/17 04:00 35 06/15/17 04:00 85 06/15/17 03:21 89 16 35 06/15/17 03:00 90 16 113/69 100 Mechanical Ventilator 35 06/15/17 02:00 91 16 111/71 100 Mechanical Ventilator 35 06/15/17 01:30 99 16 35 06/15/17 01:00 91 16 110/64 100 Mechanical Ventilator 35 06/15/17 00:00 99.2 92 16 106/64 100 Mechanical Ventilator 35 06/15/17 00:00 92 06/15/17 00:00 35 06/14/17 23:30 92 16 35 06/14/17 23:00 96 16 108/70 100 Mechanical Ventilator 35 06/14/17 22:00 123 16 135/80 100 Mechanical Ventilator 35 06/14/17 21:04 99 16 35 06/14/17 21:00 96 16 111/69 100 Mechanical Ventilator 35 06/14/17 20:00 99.0 96 16 116/78 100 Mechanical Ventilator 35 06/14/17 20:00 96 06/14/17 20:00 35 06/14/17 19:30 96 16 35 06/14/17 19:00 94 16 102/65 100 Mechanical Ventilator 35 06/14/17 18:00 100 16 105/70 100 Mechanical Ventilator 35 06/14/17 17:10 118 16 35 06/14/17 17:00 102 16 124/83 100 Mechanical Ventilator 35 06/14/17 16:00 109 06/14/17 16:00 35 06/14/17 16:00 98.7 99 16 107/65 100 Mechanical Ventilator 35 06/14/17 15:20 106 16 35 06/14/17 15:00 114 16 104/66 95 Mechanical Ventilator 35 06/14/17 14:00 111 16 106/72 98 Mechanical Ventilator 35 06/14/17 13:00 106 16 101/67 98 Mechanical Ventilator 35 06/14/17 13:00 108 16 35 06/14/17 12:00 107 06/14/17 12:00 35 06/14/17 12:00 98.6 108 16 106/67 100 Mechanical Ventilator 35 06/14/17 11:00 109 16 35 06/14/17 11:00 109 16 105/67 100 Mechanical Ventilator 35 06/14/17 10:00 117 19 99/69 98 Mechanical Ventilator 35 Status: obtunded Condition: critical HEENT: atraumatic Neck: full ROM Heart: HR/BP stable, regular Abdomen: non-tender, feeding tube Extremities: edema Decubiti: stage Micro: Microbiology Date/Time Source Procedure Growth Status 06/12/17 13:36 Blood Blood Culture - Preliminary NO GROWTH AFTER 48 HOURS Resulted 06/12/17 13:26 Blood Blood Culture - Preliminary Staphylococcus Sp Coag Neg Resulted 06/12/17 21:00 Sputum Gram Stain - Final Resulted 06/12/17 21:00 Sputum Sputum Culture - Preliminary Resulted 06/12/17 15:40 Nasal Nares MRSA Culture - Final Staphylococcus Aureus - Mrsa Complete 06/12/17 15:40 Urine,Clean Catch Urine Culture - Final Xenia Tropicalis Complete Accucheck: 218 Critical Care - Subjective ROS Limited/Unobtainable: No Condition: critical EKG Rhythm: Sinus Rhythm FI02: 35 Vent Support Breath Rate: 16 Vent Support Mode: AC Vent Tidal Volume: 600 Sputum Amount: Moderate PEEP: 5.0 PIP: 19 Tube Feeding Amount: 70 I&O: Intake and Output 06/15/17 06/16/17 19:00 07:00 Intake Total 127.5 ml Output Total 30 ml Balance 97.5 ml Intake Free Water 30 ml IV Total 27.5 ml Tube Feeding 70 ml Output Urine Total 30 ml CXR: no change Labs: Laboratory Tests Test 06/14/17 23:15 06/15/17 04:00 Vancomycin Level Trough 14.1 ug/mL (5.0-12.0) H White Blood Count 10.6 K/UL (4.8-10.8) Red Blood Count 3.36 M/UL (4.70-6.10) L Hemoglobin 11.1 G/DL (14.2-18.0) L Hematocrit 33.1 % (42.0-52.0) L Mean Corpuscular Volume 98 FL (80-99) Mean Corpuscular Hemoglobin 33.0 PG (27.0-31.0) H Mean Corpuscular Hemoglobin Concent 33.5 G/DL (32.0-36.0) Red Cell Distribution Width 14.6 % (11.6-14.8) Platelet Count 420 K/UL (150-450) Mean Platelet Volume 6.3 FL (6.5-10.1) L Neutrophils (%) (Auto) 56.2 % (45.0-75.0) Lymphocytes (%) (Auto) 20.8 % (20.0-45.0) Monocytes (%) (Auto) 7.5 % (1.0-10.0) Eosinophils (%) (Auto) 14.3 % (0.0-3.0) H Basophils (%) (Auto) 1.1 % (0.0-2.0) Sodium Level 146 MMOL/L (136-145) H Potassium Level 3.5 MMOL/L (3.5-5.1) Chloride Level 108 MMOL/L (98-107) H Carbon Dioxide Level 29 MMOL/L (21-32) Anion Gap 9 mmol/L (5-15) Blood Urea Nitrogen 27 mg/dL (7-18) H Creatinine 1.0 MG/DL (0.55-1.30) Estimat Glomerular Filtration Rate > 60 mL/min (>60) Glucose Level 217 MG/DL (74-106) #H Calcium Level 9.4 MG/DL (8.5-10.1) Phosphorus Level 3.1 MG/DL (2.5-4.9) Magnesium Level 1.7 MG/DL (1.5-2.4) Total Bilirubin 0.3 MG/DL (0.2-1.0) Aspartate Amino Transf (AST/SGOT) 124 U/L (15-37) H Alanine Aminotransferase (ALT/SGPT) 166 U/L (12-78) H Alkaline Phosphatase 682 U/L (46-116) H Total Protein 7.6 G/DL (6.4-8.2) Albumin 2.4 G/DL (3.4-5.0) L Globulin 5.2 g/dL GAIL MULTANI Jun 15, 2017 09:29
--- NOTE | 2017-06-15 10:14 | Infectious Diseases Prog Note ---
Assessment/Plan Assessment/Plan A: Low grade fever , SP Sepsis Leukocytosis, SP Probable UTI UCX : Xenia ( Colonizer ) Probable Pneumonia, Cxray : Sacral Ulcer : Not infected grossly Blood cx : CoNS 1/2 m/l contaminant elevated Alk Ph and transaminitis, improving , Ro Billiay disease Diabetes mellitus type 1 Ventilator-dependent respiratory failure Anemia SZ Persistent vegetative state Functional quadriplegia. P: We will continue with Zosyn and vancomycin d# 3 Monitor cultures (B, U, S ) Monitor BMP Monitor CBC Monitor Cxray US of Abd hepatitis panel : P{ Subjective Allergies: Coded Allergies: No Known Allergies (Unverified , 07/21/16) Subjective afebrile this morning Objective Vital Signs Last 24 Hour Vital Signs Date Time Temp Pulse Resp B/P (MAP) Pulse Ox O2 Delivery O2 Flow Rate FiO2 06/15/17 09:10 85 16 35 06/15/17 09:00 111 16 121/81 100 Mechanical Ventilator 35 06/15/17 08:19 83 06/15/17 08:00 87 06/15/17 08:00 98.6 90 16 109/76 100 Mechanical Ventilator 35 06/15/17 08:00 35 06/15/17 07:25 96 16 35 06/15/17 07:00 86 16 109/75 100 Mechanical Ventilator 35 06/15/17 06:00 84 16 116/75 100 Mechanical Ventilator 35 06/15/17 05:12 84 16 35 06/15/17 05:00 85 16 113/70 100 Mechanical Ventilator 35 06/15/17 04:00 99.0 85 16 102/67 100 Mechanical Ventilator 35 06/15/17 04:00 35 06/15/17 04:00 85 06/15/17 03:21 89 16 35 06/15/17 03:00 90 16 113/69 100 Mechanical Ventilator 35 06/15/17 02:00 91 16 111/71 100 Mechanical Ventilator 35 06/15/17 01:30 99 16 35 06/15/17 01:00 91 16 110/64 100 Mechanical Ventilator 35 06/15/17 00:00 99.2 92 16 106/64 100 Mechanical Ventilator 35 06/15/17 00:00 92 06/15/17 00:00 35 06/14/17 23:30 92 16 35 06/14/17 23:00 96 16 108/70 100 Mechanical Ventilator 35 06/14/17 22:00 123 16 135/80 100 Mechanical Ventilator 35 06/14/17 21:04 99 16 35 06/14/17 21:00 96 16 111/69 100 Mechanical Ventilator 35 06/14/17 20:00 99.0 96 16 116/78 100 Mechanical Ventilator 35 06/14/17 20:00 96 06/14/17 20:00 35 06/14/17 19:30 96 16 35 06/14/17 19:00 94 16 102/65 100 Mechanical Ventilator 35 06/14/17 18:00 100 16 105/70 100 Mechanical Ventilator 35 06/14/17 17:10 118 16 35 06/14/17 17:00 102 16 124/83 100 Mechanical Ventilator 35 06/14/17 16:00 109 06/14/17 16:00 35 06/14/17 16:00 98.7 99 16 107/65 100 Mechanical Ventilator 35 06/14/17 15:20 106 16 35 06/14/17 15:00 114 16 104/66 95 Mechanical Ventilator 35 06/14/17 14:00 111 16 106/72 98 Mechanical Ventilator 35 06/14/17 13:00 106 16 101/67 98 Mechanical Ventilator 35 06/14/17 13:00 108 16 35 06/14/17 12:00 107 06/14/17 12:00 35 06/14/17 12:00 98.6 108 16 106/67 100 Mechanical Ventilator 35 06/14/17 11:00 109 16 35 06/14/17 11:00 109 16 105/67 100 Mechanical Ventilator 35 Height (Feet): 5 Height (Inches): 8.00 Weight (Pounds): 160 HEENT: anicteric Respiratory/Chest: normal breath sounds Cardiovascular: normal peripheral pulses Abdomen: soft, non tender Microbiology Date/Time Source Procedure Growth Status 06/12/17 13:36 Blood Blood Culture - Preliminary NO GROWTH AFTER 48 HOURS Resulted 06/12/17 13:26 Blood Blood Culture - Preliminary Staphylococcus Sp Coag Neg Resulted 06/12/17 21:00 Sputum Gram Stain - Final Resulted 06/12/17 21:00 Sputum Sputum Culture - Preliminary Resulted 06/12/17 15:40 Nasal Nares MRSA Culture - Final Staphylococcus Aureus - Mrsa Complete 06/12/17 15:40 Urine,Clean Catch Urine Culture - Final Xenia Tropicalis Complete Laboratory Tests Test 06/14/17 23:15 06/15/17 04:00 Vancomycin Level Trough 14.1 ug/mL (5.0-12.0) H White Blood Count 10.6 K/UL (4.8-10.8) Red Blood Count 3.36 M/UL (4.70-6.10) L Hemoglobin 11.1 G/DL (14.2-18.0) L Hematocrit 33.1 % (42.0-52.0) L Mean Corpuscular Volume 98 FL (80-99) Mean Corpuscular Hemoglobin 33.0 PG (27.0-31.0) H Mean Corpuscular Hemoglobin Concent 33.5 G/DL (32.0-36.0) Red Cell Distribution Width 14.6 % (11.6-14.8) Platelet Count 420 K/UL (150-450) Mean Platelet Volume 6.3 FL (6.5-10.1) L Neutrophils (%) (Auto) 56.2 % (45.0-75.0) Lymphocytes (%) (Auto) 20.8 % (20.0-45.0) Monocytes (%) (Auto) 7.5 % (1.0-10.0) Eosinophils (%) (Auto) 14.3 % (0.0-3.0) H Basophils (%) (Auto) 1.1 % (0.0-2.0) Sodium Level 146 MMOL/L (136-145) H Potassium Level 3.5 MMOL/L (3.5-5.1) Chloride Level 108 MMOL/L (98-107) H Carbon Dioxide Level 29 MMOL/L (21-32) Anion Gap 9 mmol/L (5-15) Blood Urea Nitrogen 27 mg/dL (7-18) H Creatinine 1.0 MG/DL (0.55-1.30) Estimat Glomerular Filtration Rate > 60 mL/min (>60) Glucose Level 217 MG/DL (74-106) #H Calcium Level 9.4 MG/DL (8.5-10.1) Phosphorus Level 3.1 MG/DL (2.5-4.9) Magnesium Level 1.7 MG/DL (1.5-2.4) Total Bilirubin 0.3 MG/DL (0.2-1.0) Aspartate Amino Transf (AST/SGOT) 124 U/L (15-37) H Alanine Aminotransferase (ALT/SGPT) 166 U/L (12-78) H Alkaline Phosphatase 682 U/L (46-116) H Total Protein 7.6 G/DL (6.4-8.2) Albumin 2.4 G/DL (3.4-5.0) L Globulin 5.2 g/dL Digoxin Level 0.4 NG/ML (0.5-2.0) L Current Medications Medications (Trade) Dose Ordered Sig/Guillermo Route PRN Reason Start Time Stop Time Status Last Admin Dose Admin Acetaminophen (Tylenol) 650 mg Q4H PRN ORAL T>100.5 06/14/17 09:00 07/12/17 08:59 Albuterol/ Ipratropium (Albuterol/ Ipratropium) 3 ml Q4H PRN HHN Shortness of Breath 06/14/17 09:00 06/17/17 08:59 Carbamazepine (TEGretol) 400 mg TID GT 06/14/17 09:00 07/12/17 17:59 06/15/17 08:19 Dextrose (Dextrose 50%) STAT PRN IV Hypoglycemia 06/14/17 09:45 07/14/17 09:44 Digoxin (Lanoxin) 0.125 mg DAILY ORAL 06/14/17 09:00 07/13/17 08:59 06/15/17 08:19 Heparin Sodium (Porcine) (Heparin 5000 units/ml) 5,000 units EVERY 12 HOURS SUBQ 06/14/17 09:00 07/12/17 20:59 06/15/17 08:24 Insulin Aspart (NovoLOG) Q6HR SUBQ 06/14/17 12:00 07/14/17 11:29 06/15/17 06:00 Levetiracetam (Keppra) 1,500 mg Q12HR NG 06/14/17 12:45 07/14/17 12:44 06/15/17 08:19 Lorazepam (Ativan 2mg/ml 1ml) 2 mg Q2H PRN IV For Anxiety 06/14/17 09:00 06/19/17 08:59 Morphine Sulfate (Morphine Sulfate) 4 mg Q4H PRN IVP Severe Pain (Pain Scale 7-10) 06/14/17 09:00 06/19/17 08:59 Ondansetron HCl (Zofran) 4 mg Q6H PRN IVP Nausea & Vomiting 06/14/17 09:00 07/12/17 08:59 Pantoprazole (Protonix) 40 mg DAILY IV 06/14/17 09:00 07/13/17 08:59 06/15/17 08:19 Piperacillin Sod/ Tazobactam Sod 4.5 gm/Sodium Chloride 110 ml @ 27.5 mls/hr EVERY 8 HOURS IVPB 06/14/17 14:00 06/18/17 21:59 06/15/17 05:58 Polyethylene Glycol (Miralax) 17 gm DAILYPRN PRN ORAL Constipation 06/14/17 09:00 07/12/17 08:59 Vancomycin HCl (Vanco rx to dose) 1 ea DAILY PRN MISC PER RX PROTOCOL 06/14/17 09:00 07/12/17 17:44 Vancomycin HCl/ Dextrose 250 ml @ 166.636 mls/hr Q12H IVPB 06/14/17 12:00 06/19/17 00:00 06/15/17 00:18 EVERETTE MACK M.D. Jun 15, 2017 10:14
--- NOTE | 2017-06-15 10:48 | Diagnostic Imaging Report ---
Indication: Abnormal liver function tests and renal function tests Technique: Wolf-scale and duplex images of the upper abdomen were obtained Comparison: 09/15/2016 Findings: Exam is limited due to patient being contracted Gallbladder is unremarkable, without stones, wall thickening, nor pericholecystic fluid. Common bile duct measures 3 mm in diameter. No intrahepatic biliary ductal dilatation. Liver demonstrates somewhat coarsened echotexture. It is somewhat enlarged Portal vein and hepatic veins are patent. 13 mm echogenic focus in the right hepatic lobe without distal acoustic enhancement is again demonstrated. Pancreas is unremarkable. The spleen is poorly visualized, previously thought to be enlarged. Left kidney measures 11.5 cm in length. Right kidney measures 12.4 cm length. Both kidneys demonstrate normal echogenicity. There is no hydronephrosis. No focal abnormality . Non-aneurysmal abdominal aorta . Impression: Negative for gallstones or dilated ducts 13 mm echogenic focus in the posterior right hepatic lobe. Possibly but not conclusively a benign hemangioma, unchanged from prior exam of 09/15/2016. Further followup should be considered Poorly visualized spleen. Significance of this is uncertain, in light of previously reported splenomegaly Borderline hepatomegaly. Slightly coarsened hepatic echogenicity, could indicate hepatocellular disease
[2017-06-15] MEDS ORDERED: LORazepam Inj 2mg/ml 1ml IV PRN (13:00)
[2017-06-15] MEDS ORDERED: Miralax 17gm pkt ORAL PRN (13:00)
[2017-06-15] MEDS ORDERED: Albuterol/Ipratropium 3ml neb HHN PRN (13:00)
[2017-06-15] MEDS ORDERED: Morphine Sulfate 4mg/ml Inj IVP PRN (13:00)
[2017-06-15] MEDS: TAZOBACTAM IVPB SCH ×2 (13:08→22:00)
[2017-06-15] MEDS: PIPERACILLIN IVPB SCH ×2 (13:08→22:00)
[2017-06-15] MEDS: NS IVPB SCH ×2 (13:08→22:00)
[2017-06-15] MEDS ORDERED: TAZOBACTAM IVPB SCH (14:00)
[2017-06-15] MEDS ORDERED: NS IVPB SCH (14:00)
[2017-06-15] MEDS ORDERED: PIPERACILLIN IVPB SCH (14:00)
[2017-06-16] VITALS: BP 113/77
[2017-06-16] MEDS ORDERED: Vancomycin 1250mg/D5W 250ml 250 ML IVPB SCH
[2017-06-16] MEDS: NovoLOG Insulin Flexpen SUBQ SCH ×4 (00:06→17:58)
[2017-06-16 04:08] VITALS: BP 110/68
[2017-06-16 05:15] LABS: MEAN CORPUSCULAR HEMOGLOBIN 31.5 PG (27.0-31.0); MEAN CORPUSCULAR HGB CONC 31.6 G/DL (32.0-36.0); MEAN CORPUSCULAR VOLUME 100 FL (80-99); MEAN PLATELET VOLUME 6.3 FL (6.5-10.1); PLATELET COUNT 393 K/UL (150-450); RED BLOOD COUNT 3.29 M/UL (4.70-6.10); RED CELL DISTRIBUTION WIDTH 15.1 % (11.6-14.8); WHITE BLOOD COUNT 7.9 K/UL (4.8-10.8)
[2017-06-16 06:22] LABS: ALANINE AMINOTRANSFERASE 122 U/L (12-78); ALBUMIN/GLOBULIN RATIO 0.5 (1.0-2.7); ANION GAP 6 mmol/L (5-15); ASPARTATE AMINO TRANSFERASE 43 U/L (15-37); CALCIUM 9.4 MG/DL (8.5-10.1); CARBON DIOXIDE 31 MMOL/L (21-32); CHLORIDE 108 MMOL/L (98-107); CREATININE 0.9 MG/DL (0.55-1.30); GLOMERULAR FILTRATION RATE > 60 mL/min (>60); MAGNESIUM 1.9 MG/DL (1.8-2.4); PHOSPHORUS 3.3 MG/DL (2.5-4.9); POTASSIUM 4.2 MMOL/L (3.5-5.1); SODIUM 145 MMOL/L (136-145); TOTAL PROTEIN 7.6 G/DL (6.4-8.2)
[2017-06-16] MEDS: PIPERACILLIN IVPB SCH ×3 (06:23→23:41)
[2017-06-16] MEDS: NS IVPB SCH ×3 (06:23→23:41)
[2017-06-16] MEDS: TAZOBACTAM IVPB SCH ×3 (06:23→23:41)
[2017-06-16 08:00] VITALS: BP 102/65
[2017-06-16] MEDS: Pantoprazole Inj IV SCH (09:07)
[2017-06-16] MEDS: Digoxin 0.125mg tab ORAL SCH (09:07)
[2017-06-16] MEDS: levETIRAcetam 500mg/5ml Liquid NG SCH ×2 (09:07→20:47)
[2017-06-16] MEDS: carBAMazepine 200mg tab GT SCH ×3 (09:07→17:56)
[2017-06-16] MEDS: Heparin 5000 units/ml inj SUBQ SCH ×2 (09:07→20:51)
--- NOTE | 2017-06-16 09:15 | Infectious Diseases Prog Note ---
Assessment/Plan Assessment/Plan A: Low grade fever , SP Sepsis, SP Leukocytosis, SP Probable UTI UCX : Xenia ( Colonizer ) Probable Pneumonia, despite of Cxray : NAPD SCx: GNR x 2 Sacral Ulcer : Not infected grossly Blood cx : CoNS 1/2 m/l contaminant elevated Alk Ph and transaminitis, improving , US of Abd : Negative for gallstones or dilated ducts Diabetes mellitus type 1 Ventilator-dependent respiratory failure Anemia SZ Persistent vegetative state Functional quadriplegia. P: We will continue with Zosyn d# 4 / 7 and DC vancomycin d# 4 Monitor cultures (B, S ) Monitor BMP Monitor CBC Monitor Cxray hepatitis panel : P Subjective Allergies: Coded Allergies: No Known Allergies (Unverified , 07/21/16) Subjective comfortable Objective Vital Signs Last 24 Hour Vital Signs Date Time Temp Pulse Resp B/P (MAP) Pulse Ox O2 Delivery O2 Flow Rate FiO2 06/16/17 09:07 64 06/16/17 08:00 35 06/16/17 08:00 97.5 67 20 102/65 100 Mechanical Ventilator 35 06/16/17 08:00 67 06/16/17 07:02 64 17 35 06/16/17 05:01 88 17 35 06/16/17 04:08 97.7 77 16 110/68 94 Mechanical Ventilator 35 06/16/17 04:00 71 06/16/17 04:00 35 06/16/17 03:30 92 16 35 06/16/17 00:49 89 16 35 06/16/17 00:00 96.8 78 16 113/77 100 Mechanical Ventilator 35 06/15/17 23:01 81 16 35 06/15/17 21:21 85 16 35 06/15/17 20:57 98.9 06/15/17 20:00 35 06/15/17 20:00 84 06/15/17 20:00 99.1 94 16 107/69 98 Mechanical Ventilator 35 06/15/17 19:27 82 16 35 06/15/17 16:39 89 16 35 06/15/17 16:00 84 06/15/17 16:00 97.9 96 16 113/70 99 Mechanical Ventilator 35 06/15/17 16:00 35 06/15/17 15:09 86 16 35 06/15/17 13:10 90 16 35 06/15/17 12:00 35 06/15/17 12:00 84 06/15/17 11:04 89 16 35 06/15/17 11:00 85 16 126/62 100 Mechanical Ventilator 35 06/15/17 10:00 84 16 122/72 100 Mechanical Ventilator 35 Height (Feet): 5 Height (Inches): 8.00 Weight (Pounds): 160 HEENT: anicteric Respiratory/Chest: normal breath sounds Cardiovascular: no gallop/murmur Abdomen: non distended Microbiology Date/Time Source Procedure Growth Status 06/14/17 14:45 Blood Blood Culture - Preliminary NO GROWTH AFTER 24 HOURS Resulted 06/14/17 14:30 Blood Blood Culture - Preliminary NO GROWTH AFTER 24 HOURS Resulted Laboratory Tests Test 06/16/17 04:05 White Blood Count 7.9 K/UL (4.8-10.8) Red Blood Count 3.29 M/UL (4.70-6.10) L Hemoglobin 10.4 G/DL (14.2-18.0) L Hematocrit 32.9 % (42.0-52.0) L Mean Corpuscular Volume 100 FL (80-99) H Mean Corpuscular Hemoglobin 31.5 PG (27.0-31.0) H Mean Corpuscular Hemoglobin Concent 31.6 G/DL (32.0-36.0) L Red Cell Distribution Width 15.1 % (11.6-14.8) H Platelet Count 393 K/UL (150-450) Mean Platelet Volume 6.3 FL (6.5-10.1) L Neutrophils (%) (Auto) % (45.0-75.0) Lymphocytes (%) (Auto) % (20.0-45.0) Monocytes (%) (Auto) % (1.0-10.0) Eosinophils (%) (Auto) % (0.0-3.0) Basophils (%) (Auto) % (0.0-2.0) Neutrophils % (Manual) Pending Lymphocytes % (Manual) Pending Platelet Estimate Pending Platelet Morphology Pending Sodium Level 145 MMOL/L (136-145) Potassium Level 4.2 MMOL/L (3.5-5.1) Chloride Level 108 MMOL/L (98-107) H Carbon Dioxide Level 31 MMOL/L (21-32) Anion Gap 6 mmol/L (5-15) Blood Urea Nitrogen 22 mg/dL (7-18) H Creatinine 0.9 MG/DL (0.55-1.30) Estimat Glomerular Filtration Rate > 60 mL/min (>60) Glucose Level 295 MG/DL (74-106) H Calcium Level 9.4 MG/DL (8.5-10.1) Phosphorus Level 3.3 MG/DL (2.5-4.9) Magnesium Level 1.9 MG/DL (1.8-2.4) Total Bilirubin 0.2 MG/DL (0.2-1.0) Aspartate Amino Transf (AST/SGOT) 43 U/L (15-37) H Alanine Aminotransferase (ALT/SGPT) 122 U/L (12-78) H Alkaline Phosphatase 595 U/L (46-116) H Total Protein 7.6 G/DL (6.4-8.2) Albumin 2.4 G/DL (3.4-5.0) L Globulin 5.2 g/dL Albumin/Globulin Ratio 0.5 (1.0-2.7) L Current Medications Medications (Trade) Dose Ordered Sig/Guillermo Route PRN Reason Start Time Stop Time Status Last Admin Dose Admin Acetaminophen (Tylenol) 650 mg Q4H PRN ORAL T>100.5 06/15/17 13:00 07/12/17 08:59 06/15/17 19:58 Albuterol/ Ipratropium (Albuterol/ Ipratropium) 3 ml Q4H PRN HHN Shortness of Breath 06/15/17 13:00 06/17/17 08:59 Carbamazepine (TEGretol) 400 mg TID GT 06/15/17 13:00 07/12/17 17:59 06/16/17 09:07 Dextrose (Dextrose 50%) STAT PRN IV Hypoglycemia 06/15/17 12:15 07/15/17 12:14 Digoxin (Lanoxin) 0.125 mg DAILY ORAL 06/16/17 09:00 07/13/17 08:59 06/16/17 09:07 Heparin Sodium (Porcine) (Heparin 5000 units/ml) 5,000 units EVERY 12 HOURS SUBQ 06/15/17 21:00 07/12/17 20:59 06/16/17 09:07 Insulin Aspart (NovoLOG) Q6HR SUBQ 06/15/17 18:00 07/14/17 11:29 06/16/17 06:25 Levetiracetam (Keppra) 1,500 mg Q12HR NG 06/15/17 21:00 07/14/17 12:44 06/16/17 09:07 Lorazepam (Ativan 2mg/ml 1ml) 2 mg Q2H PRN IV For Anxiety 06/15/17 13:00 06/19/17 08:59 Morphine Sulfate (Morphine Sulfate) 4 mg Q4H PRN IVP Severe Pain (Pain Scale 7-10) 06/15/17 13:00 06/19/17 08:59 Ondansetron HCl (Zofran) 4 mg Q6H PRN IVP Nausea & Vomiting 06/15/17 13:00 07/12/17 12:59 Pantoprazole (Protonix) 40 mg DAILY IV 06/16/17 09:00 07/13/17 08:59 06/16/17 09:07 Piperacillin Sod/ Tazobactam Sod 4.5 gm/Sodium Chloride 55 ml @ 13.75 mls/ hr EVERY 8 HOURS IVPB 06/15/17 14:00 06/22/17 13:59 06/16/17 06:23 Polyethylene Glycol (Miralax) 17 gm DAILYPRN PRN ORAL Constipation 06/15/17 13:00 07/15/17 12:59 Vancomycin HCl (Vanco rx to dose) 1 ea DAILY PRN MISC PER RX PROTOCOL 06/15/17 13:00 07/15/17 12:59 Vancomycin HCl/ Dextrose 250 ml @ 166.636 mls/hr Q12H IVPB 06/16/17 00:00 06/19/17 00:00 06/16/17 00:00 EVERETTE MACK M.D. Jun 16, 2017 09:15
[2017-06-16 09:47] LABS: BAND NEUTROPHILS % (MANUAL) 2 % (0-8); EOSINOPHILS % (MANUAL) 22 % (0-3); LYMPHOCYTES % (MANUAL) 25 % (20-45); NEUTROPHILS % (MANUAL) 42 % (45-75); TOTAL CELLS COUNTED 100
[2017-06-16 09:50] LABS: ANISOCYTOSIS 1+; BASOPHILS % (MANUAL) 0 % (0-2); MACROCYTES 1+; PLATELET ESTIMATE ADEQUATE; PLATELET MORPHOLOGY NORMAL
[2017-06-16 09:51] LABS: HYPOCHROMASIA 1+; STOMATOCYTES OCCASIONAL
--- NOTE | 2017-06-16 09:57 | Wound Nurse Progress Note ---
Wound RN Progress Note Wound Consult right arm- linear scratches 1.5cm x0.5cm ,dry, no drainage noted. recommendation. -keep site clean and dry. -Local wound care as ordered. cleanse with normal saline, pat dry, apply no sting barrier film, cover with 4x4 gauze, secure with tape, Daily and prn if soiled/dislodged. -Offload -Assess and follow up with MD for any further changes of condition to skin noted. JUDI RAMOS Jun 16, 2017 09:57
[2017-06-16] MEDS ORDERED: ZOSYN 3.373.375 GM/5 IV (11:49)
[2017-06-16] MEDS ORDERED: LANOXIN125 MCG ORAL (11:49)
--- NOTE | 2017-06-16 11:51 | Pulmonology Progress Note ---
Assessment/Plan Problems: (1) Pneumonia (2) UTI (urinary tract infection) (3) Severe sepsis (4) Vegetative state (5) Chronic respiratory failure (6) Limited mobility in bed (7) Feeding by G-tube (8) Decubital ulcer Respiratory: monitor respiratory rate, adjust FIO2, CXR Cardiac: continue to monitor HR/BP Renal: F/U I&O, keep IV fluid Infectious Disease: check cultures, continue antibiotics Gastrointestinal: continue feedings/current rate Endocrine: monitor blood sugar, check TSH Hematologic: monitor H/H, transfuse if hgb<8.5 Neurologic: PRN Ativan, PRN Morphine, keep patient comfortable Affect: PRN ativan Prophylaxis: Protonix, Heparin Notes Reviewed: screen making supervisor, renal Discussed with: nurses, consultants, case resolution specialist Subjective ROS Limited/Unobtainable: No Constitutional: Reports: no symptoms HEENT: Repors: no symptoms Respiratory: Reports: no symptoms Allergies: Coded Allergies: No Known Allergies (Unverified , 07/21/16) Objective Last 24 Hour Vital Signs Date Time Temp Pulse Resp B/P (MAP) Pulse Ox O2 Delivery O2 Flow Rate FiO2 06/16/17 11:05 63 17 35 06/16/17 09:20 80 17 35 06/16/17 09:07 64 06/16/17 08:00 35 06/16/17 08:00 97.5 67 20 102/65 100 Mechanical Ventilator 35 06/16/17 08:00 67 06/16/17 07:02 64 17 35 06/16/17 05:01 88 17 35 06/16/17 04:08 97.7 77 16 110/68 94 Mechanical Ventilator 35 06/16/17 04:00 71 06/16/17 04:00 35 06/16/17 03:30 92 16 35 06/16/17 00:49 89 16 35 06/16/17 00:00 96.8 78 16 113/77 100 Mechanical Ventilator 35 06/15/17 23:01 81 16 35 06/15/17 21:21 85 16 35 06/15/17 20:57 98.9 06/15/17 20:00 35 06/15/17 20:00 84 06/15/17 20:00 99.1 94 16 107/69 98 Mechanical Ventilator 35 06/15/17 19:27 82 16 35 06/15/17 16:39 89 16 35 06/15/17 16:00 84 06/15/17 16:00 97.9 96 16 113/70 99 Mechanical Ventilator 35 06/15/17 16:00 35 06/15/17 15:09 86 16 35 06/15/17 13:10 90 16 35 06/15/17 12:00 35 06/15/17 12:00 84 General Appearance: WD/WN HEENT: normocephalic, atraumatic Respiratory/Chest: chest wall non-tender, lungs clear Cardiovascular: normal peripheral pulses, normal rate Abdomen: soft, non tender, no organomegaly Genitourinary: normal external genitalia Extremities: no cyanosis, no clubbing Skin: no rash Neurologic/Psychiatric: fire engineer II-XII grossly normal, abnormal gait Lymphatic: no groin adenopathy Microbiology Date/Time Source Procedure Growth Status 06/14/17 14:45 Blood Blood Culture - Preliminary NO GROWTH AFTER 24 HOURS Resulted 06/14/17 14:30 Blood Blood Culture - Preliminary NO GROWTH AFTER 24 HOURS Resulted Laboratory Tests 06/16/17 04:05: White Blood Count 7.9, Red Blood Count 3.29L, Hemoglobin 10.4L, Hematocrit 32.9L , Mean Corpuscular Volume 100H, Mean Corpuscular Hemoglobin 31.5H, Mean Corpuscular Hemoglobin Concent 31.6L, Red Cell Distribution Width 15.1H, Platelet Count 393, Mean Platelet Volume 6.3L, Neutrophils (%) (Auto) , Lymphocytes (%) (Auto) , Monocytes (%) (Auto) , Eosinophils (%) (Auto) , Basophils (%) (Auto) , Differential Total Cells Counted 100, Neutrophils % ( Manual) 42L, Lymphocytes % (Manual) 25, Monocytes % (Manual) 9, Eosinophils % ( Manual) 22H, Basophils % (Manual) 0, Band Neutrophils 2, Platelet Estimate Adequate, Platelet Morphology Normal, Hypochromasia 1+, Anisocytosis 1+, Macrocytosis 1+, Stomatocytes Occasional, Sodium Level 145, Potassium Level 4.2 , Chloride Level 108H, Carbon Dioxide Level 31, Anion Gap 6, Blood Urea Nitrogen 22H, Creatinine 0.9, Estimat Glomerular Filtration Rate > 60, Glucose Level 295H, Calcium Level 9.4, Phosphorus Level 3.3, Magnesium Level 1.9, Total Bilirubin 0.2, Aspartate Amino Transf (AST/SGOT) 43H, Alanine Aminotransferase ( ALT/SGPT) 122H, Alkaline Phosphatase 595H, Total Protein 7.6, Albumin 2.4L, Globulin 5.2, Albumin/Globulin Ratio 0.5L Current Medications Medications (Trade) Dose Ordered Sig/Guillermo Route PRN Reason Start Time Stop Time Status Last Admin Dose Admin Acetaminophen (Tylenol) 650 mg Q4H PRN ORAL T>100.5 06/15/17 13:00 07/12/17 08:59 06/15/17 19:58 Albuterol/ Ipratropium (Albuterol/ Ipratropium) 3 ml Q4H PRN HHN Shortness of Breath 06/15/17 13:00 06/17/17 08:59 Carbamazepine (TEGretol) 400 mg TID GT 06/15/17 13:00 07/12/17 17:59 06/16/17 09:07 Dextrose (Dextrose 50%) STAT PRN IV Hypoglycemia 06/15/17 12:15 07/15/17 12:14 Digoxin (Lanoxin) 0.125 mg DAILY ORAL 06/16/17 09:00 07/13/17 08:59 06/16/17 09:07 Heparin Sodium (Porcine) (Heparin 5000 units/ml) 5,000 units EVERY 12 HOURS SUBQ 06/15/17 21:00 07/12/17 20:59 06/16/17 09:07 Insulin Aspart (NovoLOG) Q6HR SUBQ 06/15/17 18:00 07/14/17 11:29 06/16/17 06:25 Levetiracetam (Keppra) 1,500 mg Q12HR NG 06/15/17 21:00 07/14/17 12:44 06/16/17 09:07 Lorazepam (Ativan 2mg/ml 1ml) 2 mg Q2H PRN IV For Anxiety 06/15/17 13:00 06/19/17 08:59 Morphine Sulfate (Morphine Sulfate) 4 mg Q4H PRN IVP Severe Pain (Pain Scale 7-10) 06/15/17 13:00 06/19/17 08:59 Ondansetron HCl (Zofran) 4 mg Q6H PRN IVP Nausea & Vomiting 06/15/17 13:00 07/12/17 12:59 Pantoprazole (Protonix) 40 mg DAILY IV 06/16/17 09:00 07/13/17 08:59 06/16/17 09:07 Piperacillin Sod/ Tazobactam Sod 4.5 gm/Sodium Chloride 55 ml @ 13.75 mls/ hr EVERY 8 HOURS IVPB 06/15/17 14:00 06/22/17 13:59 06/16/17 06:23 Polyethylene Glycol (Miralax) 17 gm DAILYPRN PRN ORAL Constipation 06/15/17 13:00 07/15/17 12:59 GAIL MULTANI Jun 16, 2017 11:51
[2017-06-16 12:00] VITALS: BP 119/74
[2017-06-16 16:00] VITALS: BP 112/71
[2017-06-16] MEDS: Levemir Flexpen SUBQ SCH (17:59)
[2017-06-16 20:00] VITALS: BP 117/73
[2017-06-17] VITALS: BP 113/75
[2017-06-17] MEDS: NovoLOG Insulin Flexpen SUBQ SCH ×3 (00:14→12:50)
[2017-06-17 04:00] VITALS: BP 115/73
[2017-06-17] MEDS: TAZOBACTAM IVPB SCH (05:40)
[2017-06-17] MEDS: PIPERACILLIN IVPB SCH (05:40)
[2017-06-17] MEDS: NS IVPB SCH (05:40)
[2017-06-17] MEDS: Levemir Flexpen SUBQ SCH (05:43)
[2017-06-17 07:36] LABS: OTHERS PATHOLOGIST COMMENT
[2017-06-17 08:00] VITALS: BP 115/77
--- NOTE | 2017-06-17 08:37 | Infectious Diseases Prog Note ---
Assessment/Plan Assessment/Plan A: Low grade fever , SP Sepsis, SP Leukocytosis, SP Probable UTI UCX : Xneia ( Colonizer ) Probable Pneumonia, despite of Cxray : NAPD SCx: S.marcescens, MDR-PSA Sacral Ulcer : Not infected grossly Blood cx : CoNS 1/2 m/l contaminant - repeat BCx NGTD elevated Alk Ph and transaminitis, improving US of Abd : Negative for gallstones or dilated ducts negative: hepatitis panel Diabetes mellitus type 1 with hyperglycemia Chronic Ventilator-dependent respiratory failure Anemia SZ Persistent vegetative state Functional quadriplegia. NKDA Full Code P: change Zosyn d# 5 to meropenem d# 1 / 7 based on cultures ( 06/16 SP vancomycin d# 4 ) Monitor cultures (B, S ) Monitor BMP Monitor CBC Monitor Cxray vent support, trach care, aspiration precautions Subjective Allergies: Coded Allergies: No Known Allergies (Unverified , 07/21/16) Subjective remains afebrile appears comfortable Objective Vital Signs Last 24 Hour Vital Signs Date Time Temp Pulse Resp B/P (MAP) Pulse Ox O2 Delivery O2 Flow Rate FiO2 06/17/17 06:52 86 19 35 06/17/17 05:19 86 16 35 06/17/17 04:00 98.8 81 16 115/73 100 Mechanical Ventilator 35 06/17/17 04:00 35 06/17/17 04:00 88 06/17/17 03:00 77 16 35 06/17/17 01:11 85 16 35 06/17/17 00:00 35 06/17/17 00:00 98.2 88 16 113/75 100 Mechanical Ventilator 35 06/17/17 00:00 83 06/16/17 23:08 88 16 35 06/16/17 21:47 98.7 06/16/17 21:15 79 16 35 06/16/17 20:00 99.0 87 16 117/73 100 Mechanical Ventilator 35 06/16/17 20:00 35 06/16/17 20:00 99.9 87 18 117/73 99 Mechanical Ventilator 35 06/16/17 19:43 85 06/16/17 19:06 82 16 35 06/16/17 17:06 80 22 35 06/16/17 16:00 35 06/16/17 16:00 97.7 84 16 112/71 100 Mechanical Ventilator 35 06/16/17 16:00 84 06/16/17 15:00 73 22 35 06/16/17 13:29 79 22 35 06/16/17 12:00 97.9 71 16 119/74 100 Mechanical Ventilator 35 06/16/17 12:00 35 06/16/17 11:32 72 06/16/17 11:05 63 17 35 06/16/17 09:20 80 17 35 06/16/17 09:07 64 Height (Feet): 5 Height (Inches): 8.00 Weight (Pounds): 160 General Appearance: no acute distress HEENT: status post trach Respiratory/Chest: decreased breath sounds Cardiovascular: normal rate, regular rhythm Abdomen: normal bowel sounds, soft, non tender, non distended Microbiology Date/Time Source Procedure Growth Status 06/14/17 14:45 Blood Blood Culture - Preliminary NO GROWTH AFTER 48 HOURS Resulted 06/14/17 14:30 Blood Blood Culture - Preliminary NO GROWTH AFTER 48 HOURS Resulted Current Medications Medications (Trade) Dose Ordered Sig/Guillermo Route PRN Reason Start Time Stop Time Status Last Admin Dose Admin Acetaminophen (Tylenol) 650 mg Q4H PRN ORAL T>100.5 06/15/17 13:00 07/12/17 08:59 06/16/17 20:48 Albuterol/ Ipratropium (Albuterol/ Ipratropium) 3 ml Q4H PRN HHN Shortness of Breath 06/15/17 13:00 06/17/17 08:59 Carbamazepine (TEGretol) 400 mg TID GT 06/15/17 13:00 07/12/17 17:59 06/16/17 17:56 Dextrose (Dextrose 50%) STAT PRN IV Hypoglycemia 06/15/17 12:15 07/15/17 12:14 Digoxin (Lanoxin) 0.125 mg DAILY ORAL 06/16/17 09:00 07/13/17 08:59 06/16/17 09:07 Heparin Sodium (Porcine) (Heparin 5000 units/ml) 5,000 units EVERY 12 HOURS SUBQ 06/15/17 21:00 07/12/17 20:59 06/16/17 20:51 Insulin Aspart (NovoLOG) Q6HR SUBQ 06/15/17 18:00 07/14/17 11:29 06/17/17 05:42 Insulin Detemir (Levemir) 20 units Q12HR@0630,1830 SUBQ 06/16/17 18:30 07/16/17 18:29 06/17/17 05:43 Levetiracetam (Keppra) 1,500 mg Q12HR NG 06/15/17 21:00 07/14/17 12:44 06/16/17 20:47 Lorazepam (Ativan 2mg/ml 1ml) 2 mg Q2H PRN IV For Anxiety 06/15/17 13:00 06/19/17 08:59 Morphine Sulfate (Morphine Sulfate) 4 mg Q4H PRN IVP Severe Pain (Pain Scale 7-10) 06/15/17 13:00 06/19/17 08:59 Ondansetron HCl (Zofran) 4 mg Q6H PRN IVP Nausea & Vomiting 06/15/17 13:00 07/12/17 12:59 Pantoprazole (Protonix) 40 mg DAILY IV 06/16/17 09:00 07/13/17 08:59 06/16/17 09:07 Piperacillin Sod/ Tazobactam Sod 4.5 gm/Sodium Chloride 55 ml @ 13.75 mls/ hr EVERY 8 HOURS IVPB 06/15/17 14:00 06/22/17 13:59 06/17/17 05:40 Polyethylene Glycol (Miralax) 17 gm DAILYPRN PRN ORAL Constipation 06/15/17 13:00 07/15/17 12:59 ALVARO CANALES Jun 17, 2017 08:37
[2017-06-17] MEDS: Pantoprazole Inj IV SCH (09:05)
[2017-06-17] MEDS: carBAMazepine 200mg tab GT SCH ×2 (09:05→12:42)
[2017-06-17] MEDS: Digoxin 0.125mg tab ORAL SCH (09:06)
[2017-06-17] MEDS: levETIRAcetam 500mg/5ml Liquid NG SCH (09:07)
[2017-06-17] MEDS: Heparin 5000 units/ml inj SUBQ SCH (09:08)
[2017-06-17] MEDS ORDERED: MEROPENEM1 GM IV (11:33)
--- NOTE | 2017-06-17 11:34 | Pulmonology Progress Note ---
Assessment/Plan Problems: (1) Pneumonia (2) UTI (urinary tract infection) (3) Severe sepsis (4) Vegetative state (5) Chronic respiratory failure (6) Limited mobility in bed (7) Feeding by G-tube (8) Decubital ulcer Respiratory: monitor respiratory rate Cardiac: continue pressors, continue to monitor HR/BP Renal: F/U I&O Infectious Disease: check cultures, continue antibiotics Endocrine: monitor blood sugar, check TSH, check HgA1C, continue sliding scale insulin Hematologic: transfuse if hgb<8.5 Neurologic: PRN Ativan, PRN Morphine, keep patient comfortable Notes Reviewed: greenkeeper, cardio Discussed with: nurses, consultants, case management director Subjective ROS Limited/Unobtainable: No Constitutional: Reports: no symptoms HEENT: Repors: no symptoms Respiratory: Reports: no symptoms Allergies: Coded Allergies: No Known Allergies (Unverified , 07/21/16) Objective Last 24 Hour Vital Signs Date Time Temp Pulse Resp B/P (MAP) Pulse Ox O2 Delivery O2 Flow Rate FiO2 06/17/17 10:52 81 16 35 06/17/17 09:06 70 06/17/17 08:51 79 16 35 06/17/17 08:00 35 06/17/17 08:00 98.1 78 16 115/77 100 Mechanical Ventilator 35 06/17/17 08:00 81 06/17/17 06:52 86 19 35 06/17/17 05:19 86 16 35 06/17/17 04:00 98.8 81 16 115/73 100 Mechanical Ventilator 35 06/17/17 04:00 35 06/17/17 04:00 88 06/17/17 03:00 77 16 35 06/17/17 01:11 85 16 35 06/17/17 00:00 35 06/17/17 00:00 98.2 88 16 113/75 100 Mechanical Ventilator 35 06/17/17 00:00 83 06/16/17 23:08 88 16 35 06/16/17 21:47 98.7 06/16/17 21:15 79 16 35 06/16/17 20:00 99.0 87 16 117/73 100 Mechanical Ventilator 35 06/16/17 20:00 35 06/16/17 20:00 99.9 87 18 117/73 99 Mechanical Ventilator 35 06/16/17 19:43 85 06/16/17 19:06 82 16 35 06/16/17 17:06 80 22 35 06/16/17 16:00 35 06/16/17 16:00 97.7 84 16 112/71 100 Mechanical Ventilator 35 06/16/17 16:00 84 06/16/17 15:00 73 22 35 06/16/17 13:29 79 22 35 06/16/17 12:00 97.9 71 16 119/74 100 Mechanical Ventilator 35 06/16/17 12:00 35 General Appearance: WD/WN HEENT: normocephalic, atraumatic Respiratory/Chest: lungs clear, normal breath sounds Cardiovascular: normal peripheral pulses, normal rate Abdomen: normal bowel sounds, soft, non tender Extremities: no cyanosis Skin: no rash Microbiology Date/Time Source Procedure Growth Status 06/14/17 14:45 Blood Blood Culture - Preliminary NO GROWTH AFTER 48 HOURS Resulted 06/14/17 14:30 Blood Blood Culture - Preliminary NO GROWTH AFTER 48 HOURS Resulted Current Medications Medications (Trade) Dose Ordered Sig/Guillermo Route PRN Reason Start Time Stop Time Status Last Admin Dose Admin Acetaminophen (Tylenol) 650 mg Q4H PRN ORAL T>100.5 06/15/17 13:00 07/12/17 08:59 06/16/17 20:48 Carbamazepine (TEGretol) 400 mg TID GT 06/15/17 13:00 07/12/17 17:59 06/17/17 09:05 Dextrose (Dextrose 50%) STAT PRN IV Hypoglycemia 06/15/17 12:15 07/15/17 12:14 Digoxin (Lanoxin) 0.125 mg DAILY ORAL 06/16/17 09:00 07/13/17 08:59 06/17/17 09:06 Heparin Sodium (Porcine) (Heparin 5000 units/ml) 5,000 units EVERY 12 HOURS SUBQ 06/15/17 21:00 07/12/17 20:59 06/17/17 09:08 Insulin Aspart (NovoLOG) Q6HR SUBQ 06/15/17 18:00 07/14/17 11:29 06/17/17 05:42 Insulin Detemir (Levemir) 20 units Q12HR@0630,1830 SUBQ 06/16/17 18:30 07/16/17 18:29 06/17/17 05:43 Levetiracetam (Keppra) 1,500 mg Q12HR NG 06/15/17 21:00 07/14/17 12:44 06/17/17 09:07 Lorazepam (Ativan 2mg/ml 1ml) 2 mg Q2H PRN IV For Anxiety 06/15/17 13:00 06/19/17 08:59 Meropenem 1 gm/ Sodium Chloride 55 ml @ 110 mls/hr Q8HR IVPB 06/17/17 14:00 06/22/17 13:59 Morphine Sulfate (Morphine Sulfate) 4 mg Q4H PRN IVP Severe Pain (Pain Scale 7-10) 06/15/17 13:00 06/19/17 08:59 Ondansetron HCl (Zofran) 4 mg Q6H PRN IVP Nausea & Vomiting 06/15/17 13:00 07/12/17 12:59 Pantoprazole (Protonix) 40 mg DAILY IV 06/16/17 09:00 07/13/17 08:59 06/17/17 09:05 Polyethylene Glycol (Miralax) 17 gm DAILYPRN PRN ORAL Constipation 06/15/17 13:00 07/15/17 12:59 GAIL MULTANI Jun 17, 2017 11:34
[2017-06-17 12:00] VITALS: BP 134/93
[2017-06-17] MEDS ORDERED: Meropenem 1 GM in NS 55 ML IVPB SCH (14:00)
[2017-06-17] MEDS ORDERED: Tubing IV Secondary IV ONE (15:10)
[2017-06-17] MEDS ORDERED: NS 275ml ONE (15:10)
--- NOTE | 2017-06-18 10:45 | Discharge Summary ---
Discharge Summary Hospital Course Date of Admission Jun 12, 2017 at 14:06 Date of Discharge Jun 17, 2017 at 14:45 Admitting Diagnosis Pneumonia HPI Miki Whitman is a 42 year old male who was admitted on Jun 12, 2017 at 14: 06 for Pneumonia Hospital Course [id number] Discharge Discharge Disposition Patient was discharged to SNF/Subacute Facility(03) Discharge Diagnoses: Carmen Rodriguez NP Jun 18, 2017 10:45
--- NOTE | 2017-06-19 02:31 | Discharge Summary 2 SIG ---
DATE OF ADMISSION: 06/12/2017 DATE OF DISCHARGE: 06/17/2017 CONSULTANTS: 1. Macho Modi M.D. 2. Joel Baldwin M.D. 3. Daniele Benitez M.D. BRIEF HOSPITAL COURSE: The patient is a 42-year-old male, in a chronic vegetative state/functional quadriplegia with chronic respiratory failure, on vent, history of seizure disorder, status post CVA, history of malnutrition, and multiple pressure ulcers, was sent in from care home for evaluation of pneumonia. The patient was with productive cough with thick sputum. He was receiving vancomycin and Levaquin at the care home and apparently WBC at [facility] was 23,000. On evaluation at ED, chest x-ray showed bilateral infiltrates. WBC was elevated to 17. Lactic acid was 1.1. Urinalysis showed urine WBC 30 to 40 and urine RBC 5 to 10 with 2+ leukocyte esterase, 2+ occult blood, and negative nitrite. O2 saturation was better post suctioning secretions. He was admitted to [facility] for sepsis and pneumonia. He was started on Zosyn and vancomycin pending culture results. He was tachycardic on admission with heart rate going up to 130s. He had intermittent tachycardia with heart rate fluctuations that are due to autonomic influences from his central nervous system injury. He was continued on digoxin and beta-meño and calcium channel meño was placed on hold. Digoxin level was 0.4. Venous duplex of lower extremity was negative for DVT bilaterally. While under observation, the patient had a witnessed generalized seizure episode. He has history of seizure disorder and was placed on Tegretol and Keppra. Dr. Benitez was consulted. The patient had abnormal liver enzymes. Depakote was discontinued. Keppra was adjusted to 2000 mg b.i.d. Discussed with the patient's mother, the patient is in vegetative state with no neurological basis for any clinical improvement. Initial blood culture showed Staphylococcus, coagulase-negative Staph. He was given Zosyn and vancomycin. Urine culture with growth of Xenia, probably colonizer. Sputum culture with growth of Serratia and multidrug-resistant Pseudomonas. Repeat blood culture was negative. Vancomycin was discontinued and was given meropenem. He had transaminitis and elevated alkaline phosphatase. Abdominal ultrasound done was negative for gallstones or dilated ducts. Hepatitis panel was likewise negative. There was no recurrence of seizure episodes. Leukocytosis resolved. The patient was afebrile. He was eventually discharged on 06/16/2017 back to care home, however, discharge was held due to hyperglycemia. Blood sugar was 412. Levemir was increased to 20 units and the patient was eventually discharged following day with stable blood sugar and vital signs. FINAL DIAGNOSES: 1. Sepsis. 2. Pneumonia. 3. Urinary tract infection. 4. Vegetative state/functional quadriplegia. 5. Acute on chronic respiratory failure. 6. Feeding via gastrostomy tube. 7. Multiple decubitus pressure ulcer present on admission. Please refer to wound documentation. 8. Elevated liver transaminases. 9. Diabetes type 1 with hyperglycemia. 10. Anemia. 11. Seizure disorder with acute exacerbation. 12. Severe protein malnutrition. 13. Severe anoxic encephalopathy. 14. Sinus tachycardia. DISPOSITION: The patient was discharged to [facility]. DISCHARGE MEDICATIONS: Refer to medication list. Continue with meropenem 1 g q.8 hours for seven days. Patsy Wong M.D. I have been assigned to dictate discharge summary on this account and I was not involved in the patient's management. Carmen Rodriguez N.P. DR: KAREN JOB#: [id number] CC:
--- NOTE | 2017-06-20 15:56 | Cardiology Report ---
APPROVED REPORT EKG Measurement Heart [id number] ID [id number] Normal sinus rhythm Nonspecific T wave abnormality Abnormal ECG
== END 2017-06-17 14:45 | DRG 720 ==
LOC: EDBD 13:18 → EDBEDREQ 13:38 → EMR 13:43 → 2W 14:06 → EDBEDREQ 14:51 → 2W 15:26 → ICU 06-14 08:00 → 2W 06-15 12:10
PROC: 5A1945Z Respiratory Ventilation, 24-96 Consecutive Hours (ICD-10-PCS; principal; 2017-06-12)
DX: A41.9 Sepsis, unspecified organism (principal); J96.20 Acute and chronic respiratory failure, unspecified whether with hypoxia or hypercapnia; R40.3 Persistent vegetative state; E43 Unspecified severe protein-calorie malnutrition; G93.1 Anoxic brain damage, not elsewhere classified; L89.154 Pressure ulcer of sacral region, stage 4; J18.9 Pneumonia, unspecified organism; Z99.11 Dependence on respirator [ventilator] status; L89.893 Pressure ulcer of other site, stage 3; L89.323 Pressure ulcer of left buttock, stage 3; R53.2 Functional quadriplegia; Z43.0 Encounter for attention to tracheostomy; R65.20 Severe sepsis without septic shock; N39.0 Urinary tract infection, site not specified; Z79.4 Long term (current) use of insulin; E10.65 Type 1 diabetes mellitus with hyperglycemia; Z43.1 Encounter for attention to gastrostomy; L89.620 Pressure ulcer of left heel, unstageable; L89.610 Pressure ulcer of right heel, unstageable; G40.909 Epilepsy, unspecified, not intractable, without status epilepticus; D64.9 Anemia, unspecified; J44.1 Chronic obstructive pulmonary disease with (acute) exacerbation; Z86.73 Personal history of transient ischemic attack (TIA), and cerebral infarction without residual deficits; Z68.1 Body mass index [BMI] 19.9 or less, adult
CPT/HCPCS: 36415; 71010; 76700; 80053; 80069; 80156; 80162; 80202; 81003; 82550; 82962; 83605; 83735; 83880; 84100; 84484; 85007; 85025; 85610; 85730; 86705; 86709; 86803; 87040; 87070; 87081; 87086; 87181; 87205; 87340; 93005; 93970; 94002; 94003; 99285; J1815; S5561

== ENCOUNTER 2018-09-08 14:37 | Inpatient (IN) | payer MEDICAID ==
[~2018-09-08] VITALS: Ht 172.7 cm; Wt 97.1 kg
[~2018-09-08 14:37] MED LIST changes: -Cefepime HCl 1 GM in NS 55 ML IV STA; +DEPAKENE250 MG/5 M GT; +KEPPRA500 M4 GT; +LANOXIN125 MCG ORAL; +MEROPENEM1 GM IV; +OMEPRAZOLE20 M2 GT; -Vancomycin 1 GM in NS 275 ML IV ONE; +ZOSYN 3.373.375 GM/5 IV
--- NOTE | 2018-09-08 14:40 | NUR ---
ED Nurse Note: sz & aspiration precaution started.
--- NOTE | 2018-09-08 14:42 | NUR ---
RESPIRATORY NOTE: PT WAS BROUGHT IN VIA AMBULANCE AT THIS TIME. PT. IS OBTUNDED AND VENT DEPENDED SHOWING NO SIGNS OF RESPIRATORY DISTRESS. SPO2 IS 98-100% WITH A RR OF 16-19BPM. HR IS INCREASED RANGING FROM 120 -130BPM. PT IS BEING VENTILATED VIA A PORTEX 9. VENT SETTINGS: 16, 600, 36%,+ 5. VENT CIRCUIT SECURE AND OUT OF THE WAY.
[2018-09-08 14:45] VITALS: BP 120/87
--- NOTE | 2018-09-08 14:45 | NUR ---
ED Nurse Note: Pt brought in by CECILIA from [facility] c/o seizure activityx [facility] at [phone], given ativan and versed. pt AA&ox0, nonverbal, +trach, skin moist and warm, resp even and unlabored on vent, +gtube, active BS, abd round and nontender, on diaper, will cont monitor. quadriplegic, on bedrest.
--- NOTE | 2018-09-08 14:46 | Emergency Room Report ---
History of Present Illness General Chief Complaint: Seizure Source: Patient Present Illness HPI 43-year-old male, bedbound, CVA, tonic vegetative state, nonverbal, history of seizures, presenting with seizure. History is obtained by EMS from the group home. They said that he had multiple seizures for the last 24 hours. The given 2 mg of Ativan, the seizures presented as focal twitching of his face as well as his head and his left arm. He was also febrile to 102 and tachycardic. Full code. No other history able to be obtained Allergies: Coded Allergies: No Known Allergies (Unverified , 07/21/16) Patient History Past Medical History: see triage record Past Surgical History: none Pertinent Family History: none Reviewed Nursing Documentation: PMH: Agreed; PSxH: Agreed Nursing Documentation-PMH Past Medical History: No History, Except For Hx Hypertension: Yes Hx Diabetes: Yes Hx Cancer: No Hx Gastrointestinal Problems: Yes - G-tube, Hx Cerebrovascular Accident: Yes Hx Seizures: Yes Review of Systems All Other Systems: limited - NONVERBAL Physical Exam Vital Signs Date Time Temp Pulse Resp B/P (MAP) Pulse Ox O2 Delivery O2 Flow Rate FiO2 09/08/18 14:33 102.0 120 18 123/82 98 Sp02 EP Interpretation: abnormal General Appearance: mild distress, other - NOT ALERT, BED BOUND NONVERBAL, Chronically Ill Head: normocephalic, atraumatic Eyes: bilateral eye normal inspection, bilateral eye PERRL, bilateral eye EOMI ENT: other - trach Neck: normal inspection, full range of motion, supple Respiratory: other - trach, [facility] b/s Cardiovascular #1: normal inspection, regular rate, rhythm, normal capillary refill Cardiovascular #2: 2+ radial (R), 2+ radial (L) Gastrointestinal: other - peg tube, no grimace to deep palpation, nondistended Musculoskeletal: other - no trauma notesd Neurologic: other - slight L sided facial twitching intermittent and L hand movements. nonverbal not responsive Skin: normal inspection, normal color, no rash, warm/dry, well hydrated, normal turgor Procedures Critical Care Time Critical Care Time 40 minutes of CC time 43-year-old male, chronic respiratory failure with tracheostomy, history of seizures, presenting with seizure. Also febrile PLAN: IV access, labs, lactate, troponin, Blood/Urine Cx, Abx, IVF Anticipate admission to SDU CC time also includes review of labs, review of EMR, discussion with family and paperwork from SNF, d/w hospitalist CC could include dosing of pressors, additional Abx CC time does not include procedures Medical Decision Making Diagnostic Impression: Primary Impression: Severe sepsis Additional Impressions: Chronic respiratory failure Seizure disorder UTI (urinary tract infection) ER Course 43-year-old male, presenting with seizure, also febrile DDX: Seizure, electrolyte disturbance, ACS, Sepsis 2/2 UTI, PNA, bacteremia Plan: Obtain labs including cbc, bmp, blood culture, blood gas, lactate, ua, ucx CXR EKG Broad spectrum ABX ER course: Patient's BP has remained stable with MAP > 65 Given broad spectrum abx - vancomycin and zosyn Unknown source for the fever, but possibly the urine, unable to pass a catheter , so condom cath was placed. ua came back very cloudy. Patient was given empiric antibiotics anyway. Patient also noted to have another seizure where his upper extremities became rigid, lasted about a minute, he was given 2 mg of IV Ativan Keppra was given as well Disposition: Patient will admitted to sdu Patient requires close monitoring of respiratory/hemodynamic status and continuation of IV antibiotics. D/W Hospitalist Dr Wakefield Please note that this Emergency Department Report was dictated using [employer] curriculum developer technology software, occasionally this can lead to erroneous entry secondary to interpretation by the dictation equipment. EKG Diagnostic Results EP Interpretation: Yes Rate: Tachycardic Rhythm: NSR ST Segments: No acute changes ASA given to patient: No Rhythm Strip EP Interpretation: Yes Rate: 117 Rhythm: NSR, no PVCs, no ectopy Chest X-ray CXR: Ordered: Yes 1 view Indication: Sepsis EP interpretation: Yes Findings: Tracheostomy tube is in good position. Bones are osteopenic. Old right clavicle injury noted. There is scarring at the left perihilar region with slight volume loss and elevation of the diaphragm again noted. Findings are unchanged. IMPRESSION: No change from the prior examination. Scarring likely accounting for some volume loss in the left midlung. Tracheostomy good position Electronically signed by Marina Alcantara MD Laboratory Tests Test 09/08/18 14:40 09/08/18 15:00 09/08/18 16:34 White Blood Count 14.9 K/UL (4.8-10.8) H Red Blood Count 3.14 M/UL (4.70-6.10) L Hemoglobin 10.0 G/DL (14.2-18.0) L Hematocrit 28.4 % (42.0-52.0) L Mean Corpuscular Volume 90 FL (80-99) Mean Corpuscular Hemoglobin 31.7 PG (27.0-31.0) H Mean Corpuscular Hemoglobin Concent 35.1 G/DL (32.0-36.0) Red Cell Distribution Width 12.3 % (11.6-14.8) Platelet Count 343 K/UL (150-450) Mean Platelet Volume 5.6 FL (6.5-10.1) L Neutrophils (%) (Auto) 76.6 % (45.0-75.0) H Lymphocytes (%) (Auto) 13.6 % (20.0-45.0) L Monocytes (%) (Auto) 7.9 % (1.0-10.0) Eosinophils (%) (Auto) 0.2 % (0.0-3.0) Basophils (%) (Auto) 1.7 % (0.0-2.0) Prothrombin Time 12.6 SEC (9.30-11.50) H Prothrombin Time INR 1.2 (0.9-1.1) H PTT 32 SEC (23-33) Sodium Level 133 MMOL/L (136-145) L Potassium Level 3.3 MMOL/L (3.5-5.1) L Chloride Level 93 MMOL/L (98-107) L Carbon Dioxide Level 31 MMOL/L (21-32) Anion Gap 9 mmol/L (5-15) Blood Urea Nitrogen 25 mg/dL (7-18) H Creatinine 0.9 MG/DL (0.55-1.30) Estimate Glomerular Filtration Rate > 60 mL/min (>60) Glucose Level 43 MG/DL (74-106) L Lactic Acid Level 1.00 mmol/L (0.4-2.0) Calcium Level 9.6 MG/DL (8.5-10.1) Total Bilirubin 0.3 MG/DL (0.2-1.0) Aspartate Amino Transferase (AST) 38 U/L (15-37) H Alanine Aminotransferase (ALT) 33 U/L (12-78) Alkaline Phosphatase 230 U/L (46-116) H Total Creatine Kinase 138 U/L (26-308) Creatine Kinase MB 0.6 NG/ML (0.0-3.6) Creatine Kinase MB Relative Index 0.4 Troponin I 0.000 ng/mL (0.000-0.056) Pro-B-Type Natriuretic Peptide 169 pg/mL (0-125) H Total Protein 8.4 G/DL (6.4-8.2) H Albumin 3.0 G/DL (3.4-5.0) L Globulin 5.4 g/dL Albumin/Globulin Ratio 0.6 (1.0-2.7) L Urine Color Pending Urine Appearance Pending Urine pH Pending Urine Specific [place] Pending Urine Protein Pending Urine Glucose (UA) Pending Urine Ketones Pending Urine Blood Pending Urine Nitrite Pending Urine Bilirubin Pending Urine Urobilinogen Pending Urine Leukocyte Esterase Pending Microbiology Date/Time Source Procedure Growth Status 09/08/18 15:06 Nasal Nares Influenza Types A,B Antigen (TREASURE) - Final Complete Last Vital Signs Date Time Temp Pulse Resp B/P (MAP) Pulse Ox O2 Delivery O2 Flow Rate FiO2 09/08/18 14:33 102.0 120 18 123/82 98 Disposition: ADMITTED INPATIENT Condition: Critical Marina Alcantara M.D. Sep 08, 2018 14:46
--- NOTE | 2018-09-08 14:50 | NUR ---
ED Nurse Note: ERMD notified regarding pt's fever, temp 102.
--- NOTE | 2018-09-08 14:50 | NUR ---
ED Nurse Note: cooling measures done, pt changed and cleaned.
[2018-09-08 15:27] LABS: BASOPHILS % (AUTO) 1.7 % (0.0-2.0); EOSINOPHILS % (AUTO) 0.2 % (0.0-3.0); HEMATOCRIT 28.4 % (42.0-52.0); LYMPHOCYTES % (AUTO) 13.6 % (20.0-45.0); MEAN CORPUSCULAR VOLUME 90 FL (80-99); MONOCYTES % (AUTO) 7.9 % (1.0-10.0); NEUTROPHILS % (AUTO) 76.6 % (45.0-75.0); PLATELET COUNT 343 K/UL (150-450); RED BLOOD COUNT 3.14 M/UL (4.70-6.10); RED CELL DISTRIBUTION WIDTH 12.3 % (11.6-14.8); WHITE BLOOD COUNT 14.9 K/UL (4.8-10.8)
[2018-09-08 15:31] LABS: INR 1.2 (0.9-1.1)
[2018-09-08 15:34] LABS: ANION GAP 9 mmol/L (5-15); BLOOD UREA NITROGEN 25 mg/dL (7-18); CALCIUM 9.6 MG/DL (8.5-10.1); CARBON DIOXIDE 31 MMOL/L (21-32); CHLORIDE 93 MMOL/L (98-107); CREATININE 0.9 MG/DL (0.55-1.30); POTASSIUM 3.3 MMOL/L (3.5-5.1); SODIUM 133 MMOL/L (136-145)
[2018-09-08] MEDS ORDERED: Piperacillin/Tazobactam 3.375 GM in NS 110 ML IVPB ONE (15:45)
[2018-09-08] MEDS ORDERED: VANCOMYCIN IVPB ONE (15:45)
[2018-09-08 15:50] LABS: ALANINE AMINOTRANSFERASE 33 U/L (12-78); ALBUMIN/GLOBULIN RATIO 0.6 (1.0-2.7); ALKALINE PHOSPHATASE 230 U/L (46-116); ASPARTATE AMINO TRANSFERASE 38 U/L (15-37); BILIRUBIN,TOTAL 0.3 MG/DL (0.2-1.0); CKMB 0.6 NG/ML (0.0-3.6); CREATINE KINASE 138 U/L (26-308)
[2018-09-08 15:53] VITALS: BP 126/78
[2018-09-08] MEDS ORDERED: Acetaminophen 650 MG SUPP RECTAL ONE (16:00)
--- NOTE | 2018-09-08 16:05 | Diagnostic Imaging Report ---
Indication: Dyspnea Comparison: None A single view chest radiograph was obtained. Findings: Tracheostomy tube is in good position. Bones are osteopenic. Old right clavicle injury noted. There is scarring at the left perihilar region with slight volume loss and elevation of the diaphragm again noted. Findings are unchanged. IMPRESSION: No change from the prior examination. Scarring likely accounting for some volume loss in the left midlung. Tracheostomy good position
--- NOTE | 2018-09-08 16:15 | NUR ---
ED Nurse Note: pt noted sz activity sx, arm twitching sensation, white foam in mouth, ERMD notified, ativan 2mg via IV stat order received.
[2018-09-08] MEDS ORDERED: levETIRAcetam 1,500 MG in D5W 95 ML IVPB ONE (16:30)
[2018-09-08] MEDS ORDERED: LORazepam Inj 2mg/ml 1ml ONE (16:39)
[2018-09-08] MEDS ORDERED: LORazepam Inj 2mg/ml 1ml IV ONE ×2 (16:45→19:00)
--- NOTE | 2018-09-08 16:45 | NUR ---
ED Nurse Note: pt airway intact, resp even and unlabored, pt was suctioned, RT present at bedside, will cont monitor. ERMD aware pt's condition.
[2018-09-08 17:04] LABS: APPEARANCE,URINE VERY CLOUDY; BILIRUBIN, URINE NEGATIVE (NEGATIVE); GLUCOSE, URINE (UA) NEGATIVE (NEGATIVE); KETONES,URINE 1+ (NEGATIVE); LEUKOCYTE ESTERASE ,URINE 3+ (NEGATIVE); NITRITE,URINE NEGATIVE (NEGATIVE); PH,URINE 6 (4.5-8.0); PROTEIN,URINE 3+ (NEGATIVE); UROBILINOGEN,URINE NORMAL MG/DL (0.0-1.0)
[2018-09-08 17:06] LABS: COLOR,URINE RED
[2018-09-08] MEDS ORDERED: ASPIR 8181 MG ORAL (17:32)
[2018-09-08] MEDS ORDERED: FLEET ENEMA133 ML RECTAL (17:32)
[2018-09-08] MEDS ORDERED: FERROUS SU325 MG/5 M GT (17:32)
--- NOTE | 2018-09-08 18:10 | NUR ---
ED Nurse Note: noted pt sz, ERMD notified, ativan 2mg order obtained. airway intact. o2sat 100%
--- NOTE | 2018-09-08 18:20 | NUR ---
ED Nurse Note: noted rectal temp 104, ERMD notified, pt cooling measures done.
--- NOTE | 2018-09-08 19:00 | NUR ---
ED Nurse Note: Pt transferred to SDU and endorsed care, no belongings, mother at the bedside, vss, RT at the bedside.
--- NOTE | 2018-09-08 19:10 | NUR ---
NURSE NOTE: Report received from PASHA Franklin @ 1900. Pt received at 1910. Pt obtunded. electronic device monitor shows SR. Pt ventilator dependent. Trach: portex 8. Ventilator settings: AC16, VT600, FiO2: 36. PEEP5. Pt has GT present. Saccral and R buttocks wound noted. Pt has a RH20g IV. Currently temperature when arriving to unit is 102.9. Last active seizure activity was approximately 15 minutes ago in ER. Pt connected to monitor. Will continue to monitor and with patients plan of care.
--- NOTE | 2018-09-08 19:10 | NUR ---
RESPIRATORY NOTE: Pt was received stable, alert and awake on vent settings AC 16, 600 VT, 36%, PEEP +5. Pt is trached on a cuffed portex 9. Vent is plugged in red outlet. No respiratory distress noted. Will continue to monitor patient.
--- NOTE | 2018-09-08 19:17 | NUR ---
NURSE NOTES: Contacted Dr. Wakefield for orders. Awaiting return call.
--- NOTE | 2018-09-08 19:52 | NUR ---
NURSE NOTES: Attempted to contact Dr. Wakefield for admitting orders. Awaiting return call.
[2018-09-08 20:00] VITALS: BP 136/88
[2018-09-08] MEDS ORDERED: LORazepam Inj 2mg/ml 1ml IV PRN (20:00)
[2018-09-08] MEDS ORDERED: Milk of Magnesia 30ml Ud GT PRN (20:15)
[2018-09-08] MEDS ORDERED: Norco 5mg/325mg tab ORAL PRN (20:15)
[2018-09-08] MEDS: levETIRAcetam 500mg/5ml Liquid GT SCH (21:55)
[2018-09-08] MEDS: Heparin 5000 units/ml inj SUBQ SCH (21:57)
[2018-09-09] VITALS: BP 133/76
[2018-09-09 04:00] VITALS: BP 132/82
[2018-09-09 05:56] LABS: BASOPHILS % (AUTO) 0.7 % (0.0-2.0); EOSINOPHILS % (AUTO) 0.1 % (0.0-3.0); HEMATOCRIT 29.2 % (42.0-52.0); HEMOGLOBIN 10.1 G/DL (14.2-18.0); LYMPHOCYTES % (AUTO) 7.9 % (20.0-45.0); MEAN CORPUSCULAR VOLUME 92 FL (80-99); MONOCYTES % (AUTO) 6.7 % (1.0-10.0); NEUTROPHILS % (AUTO) 84.6 % (45.0-75.0); PLATELET COUNT 336 K/UL (150-450); RED BLOOD COUNT 3.18 M/UL (4.70-6.10); RED CELL DISTRIBUTION WIDTH 12.7 % (11.6-14.8); WHITE BLOOD COUNT 14.1 K/UL (4.8-10.8)
[2018-09-09 06:28] LABS: ANION GAP 10 mmol/L (5-15); BLOOD UREA NITROGEN 20 mg/dL (7-18); CALCIUM 8.6 MG/DL (8.5-10.1); CARBON DIOXIDE 29 MMOL/L (21-32); CHLORIDE 93 MMOL/L (98-107); CREATININE 0.6 MG/DL (0.55-1.30); POTASSIUM 3.7 MMOL/L (3.5-5.1); SODIUM 132 MMOL/L (136-145)
--- NOTE | 2018-09-09 07:15 | NUR ---
HAND-OFF: Report given to PASHA Sepulveda. Shows no signs of cardiac/respiratory distress.
--- NOTE | 2018-09-09 07:16 | NUR ---
NURSE NOTES: RECEIVED REPORT FROM Amol VILA RN. PATIENT IS LYING IN BED, OBTUNDED. HOOKED TO SERVER ENGINEER. TRACH TO VENT. PORTEX 9, VENT SETTINGS AC 16, TV 600, FIO2 36%, PEEP 5. NO SIGNS OF CARDIO OR RESPI DISTRESS OF THE MOMENT. GT IN PLACE WITH GTF RUNNING GLUCERNA 1.2 AT 40CC/HR. NOTED CONDOM CATH CONNECTED TO BAG. SKIN ALTERATION NOTED. IV R HAND G22, TKO. CALL LIGHT WITHIN REACH. BED AT LOWEST POSITION. SIDE RAILS UP. WILL CONTINUE TO MONITOR.
[2018-09-09 08:00] VITALS: BP 124/69
--- NOTE | 2018-09-09 08:33 | NUR ---
NURSE NOTES:WOUND CARE NOTES:Pt presents with DTPI L Ischium(L)2.5cm x(W)3cm. Wound bed maroon with red tinged edges with surrounding hyperpigmentation from previous wound.Pressure injury sacrococcygeal area (L)1.0cm x (W)1.7cm.Wound bed hypergranular with dark edges that are moist.Hyperpigmentation periwound .Pt's mother at bedside and stated had multiple stage four in past. hyperpigmentation noted to R ischium.DTPI noted to L heel (L)5cm x(W)8cm .Wound bed maroon and fluctuant with red tinged borders.DTPI noted to R heel,wound bed maroon and is fluctuant(L)5cm x (W)7cm.Bilat foot drop noted. Skin also assessed under trach collar and no evidence of skin breakdown noted. scars with hyperpigmentation noted to R and L shoulders . Tx.Plan: Apply Cavilon Skin Barrier to L ischium. Cover with Optifoam drsg .Change every 3 days and prn. Apply Moisture Barrier to Sacrococcygeal area .Cover with Optifoam drsg .Change every 3 days and prn. Apply Cavilon Skin Barrier to R and L heels. Cover with Optifoam drsgs. Change every 7 days and prn. Apply Cavilon Skin Barrier to R and L shulders .Cover with Optifoam drsgs .change every 7 days and prn. APM/LOWELL mattress overlay. Reposition at least every 2hours or as tolerated. Off-load heels with pillow.
[2018-09-09] MEDS: Valproic Acid 250mg/5ml Liquid GT SCH ×3 (09:00→20:32)
[2018-09-09] MEDS: Aspirin EC 81mg tab ORAL SCH ×2 (09:00→10:00)
[2018-09-09] MEDS: Ferrous Sulfate 300 MG/5 ML UDC GT SCH ×3 (09:00→17:11)
[2018-09-09] MEDS: carBAMazepine 200mg tab GT SCH ×4 (09:00→17:12)
[2018-09-09] MEDS: levETIRAcetam 500mg/5ml Liquid GT SCH ×3 (09:00→20:32)
[2018-09-09] MEDS: Heparin 5000 units/ml inj SUBQ SCH ×2 (10:16→20:33)
--- NOTE | 2018-09-09 10:35 | NUR ---
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 2) Difficulty swallowing R/T resp status AEB pt vent dependent via trach w/PEG. CURRENT TF: Glucerna 1.2 @70ml x20 hrs ENTERAL NUTRITION RECOMMENDATIONS: Glucerna 1.2 @ 70 ml/hr x 22 hrs to provide 1540ml, 1848kcal, 92g prot, 1240ml H20 * INCREASED TF RUN TIME TO 22HRS per day * HOB >30 degrees/H20 flush per MD ADDITIONAL RECOMMENDATIONS: 1) PER SNF (09/07/18) pt is: 6'4" tall and 139# (63.2kg) 2) Wound care: Marcelino 1 pkt BID + Vit C 500mg QD F/up w/ WC eval 3) Monitor lytes, BG daily 4) Weekly calibrated bed scale wts
--- NOTE | 2018-09-09 10:43 | NUR ---
CASE MANAGEMENT: REVIEW 43/M BIBA FROM [facility] CC: SEIZURE SI: SEPSIS . SEIZURE . RESPIRATORY FAILURE T 102.0 HR 121 RR 18 BP 123/82 SAT 98% MECH VENT FIO2 36 WBC 14.9 NA 133 K 3.3 IS: NS IVF BOLUS X1 ZOSYN IV X1 VANCO IV X1 KEPPRA IV X1 ATIVAN IV X1 TYLENOL PO X1 INTERQUAL CRITERIA MET: PATIENT ADMITTED TO STEP DOWN UNIT 09/08/2018 DCP: PATIENT IS FROM [facility]
[2018-09-09 12:00] VITALS: BP 118/82
[2018-09-09] MEDS: Metoclopramide 10mg/2ml Inj IVP PRN (12:28)
[2018-09-09] MEDS: Acetaminophen 650 MG SUPP RECTAL SCH ×2 (12:30→13:02)
[2018-09-09] MEDS: Vancomycin 1gm/D5W 275ml IVPB SCH ×4 (12:46→20:31)
[2018-09-09] MEDS ORDERED: NovoLOG Insulin Flexpen SUBQ SCH (14:15)
--- NOTE | 2018-09-09 14:33 | History & Physical ---
History and Physical History & Physicial 43-year-old male, bedbound, CVA, tonic vegetative state, nonverbal, history of seizures, presents with persistent seizures. Patient with persistent seizures and presented as focal twitching of his face as well as his head and his left arm. He was also febrile to 102 and admitted Allergies: No Known Allergies (Unverified , 07/21/16) Past Medical History: diabetes, elevated cholesterol, trach, gt, respiratory failure, seizure disorder Past Surgical History: none Pertinent Family History: none Physical WDWN NAD trach clear breath sounds bilaterally without rhonchi or wheeze [id number] without MRG NABS nontender no HSM no CCE poorly responsive Labs Test 09/08/18 14:40 09/08/18 15:00 09/08/18 16:34 09/09/18 03:20 White Blood Count 14.9 K/UL (4.8-10.8) 14.1 K/UL (4.8-10.8) Red Blood Count 3.14 M/UL (4.70-6.10) 3.18 M/UL (4.70-6.10) Hemoglobin 10.0 G/DL (14.2-18.0) 10.1 G/DL (14.2-18.0) Hematocrit 28.4 % (42.0-52.0) 29.2 % (42.0-52.0) Mean Corpuscular Volume 90 FL (80-99) 92 FL (80-99) Mean Corpuscular Hemoglobin 31.7 PG (27.0-31.0) 31.8 PG (27.0-31.0) Mean Corpuscular Hemoglobin Concent 35.1 G/DL (32.0-36.0) 34.7 G/DL (32.0-36.0) Red Cell Distribution Width 12.3 % (11.6-14.8) 12.7 % (11.6-14.8) Platelet Count 343 K/UL (150-450) 336 K/UL (150-450) Mean Platelet Volume 5.6 FL (6.5-10.1) 5.7 FL (6.5-10.1) Neutrophils (%) (Auto) 76.6 % (45.0-75.0) 84.6 % (45.0-75.0) Lymphocytes (%) (Auto) 13.6 % (20.0-45.0) 7.9 % (20.0-45.0) Monocytes (%) (Auto) 7.9 % (1.0-10.0) 6.7 % (1.0-10.0) Eosinophils (%) (Auto) 0.2 % (0.0-3.0) 0.1 % (0.0-3.0) Basophils (%) (Auto) 1.7 % (0.0-2.0) 0.7 % (0.0-2.0) Prothrombin Time 12.6 SEC (9.30-11.50) Prothromb Time International Ratio 1.2 (0.9-1.1) Activated Partial Thromboplast Time 32 SEC (23-33) Arterial Blood pH 7.414 (7.350-7.450) Arterial Blood Partial Pressure CO2 49.3 mmHg (35.0-45.0) Arterial Blood Partial Pressure O2 77.3 mmHg (75.0-100.0) Arterial Blood HCO3 30.8 mmol/L (22.0-26.0) Arterial Blood Oxygen Saturation 93.8 % (95-100) Arterial Blood Base Excess 5.4 (-2-2) Dewey Test Positive Sodium Level 133 MMOL/L (136-145) 132 MMOL/L (136-145) Potassium Level 3.3 MMOL/L (3.5-5.1) 3.7 MMOL/L (3.5-5.1) Chloride Level 93 MMOL/L (98-107) 93 MMOL/L (98-107) Carbon Dioxide Level 31 MMOL/L (21-32) 29 MMOL/L (21-32) Anion Gap 9 mmol/L (5-15) 10 mmol/L (5-15) Blood Urea Nitrogen 25 mg/dL (7-18) 20 mg/dL (7-18) Creatinine 0.9 MG/DL (0.55-1.30) 0.6 MG/DL (0.55-1.30) Estimat Glomerular Filtration Rate > 60 mL/min (>60) > 60 mL/min (>60) Glucose Level 43 MG/DL (74-106) 145 MG/DL (74-106) Lactic Acid Level 1.00 mmol/L (0.4-2.0) Calcium Level 9.6 MG/DL (8.5-10.1) 8.6 MG/DL (8.5-10.1) Total Bilirubin 0.3 MG/DL (0.2-1.0) Aspartate Amino Transf (AST/SGOT) 38 U/L (15-37) Alanine Aminotransferase (ALT/SGPT) 33 U/L (12-78) Alkaline Phosphatase 230 U/L (46-116) Total Creatine Kinase 138 U/L (26-308) Creatine Kinase MB 0.6 NG/ML (0.0-3.6) Creatine Kinase MB Relative Index 0.4 Troponin I 0.000 ng/mL (0.000-0.056) Pro-B-Type Natriuretic Peptide 169 pg/mL (0-125) Total Protein 8.4 G/DL (6.4-8.2) Albumin 3.0 G/DL (3.4-5.0) Globulin 5.4 g/dL Albumin/Globulin Ratio 0.6 (1.0-2.7) Urine Color Red Urine Appearance Very cloudy Urine pH 6 (4.5-8.0) Urine Specific [place] 1.010 (1.005-1.035) Urine Protein 3+ (NEGATIVE) Urine Glucose (UA) Negative (NEGATIVE) Urine Ketones 1+ (NEGATIVE) Urine Blood 5+ (NEGATIVE) Urine Nitrite Negative (NEGATIVE) Urine Bilirubin Negative (NEGATIVE) Urine Urobilinogen Normal MG/DL (0.0-1.0) Urine Leukocyte Esterase 3+ (NEGATIVE) Urine RBC Tntc /HPF (0 - 0) Urine WBC 30-40 /HPF (0 - 0) Urine Squamous Epithelial Cells None /LPF (NONE/OCC) Urine Bacteria Few /HPF (NONE) IMPRESSION respiratory failure trach seizures fever leukocytosis possible sepsis PLAN ID evaluation Iv antibiotics respiratory care oxygen seizure meds monitor ativan sliding scale impression, plan, and exam edited and reviewed in detail care discussed with Andres Esquivel MD Sep 09, 2018 14:33
[2018-09-09] MEDS: Piperacillin/Tazobactam 3.375 GM in NS 110 ML IVPB SCH ×2 (15:05→22:28)
[2018-09-09 16:00] VITALS: BP 108/76
[2018-09-09] MEDS: NovoLOG Insulin Flexpen SUBQ SCH (17:18)
--- NOTE | 2018-09-09 17:18 | NUR ---
Pt's BG 136. 3 units NovoLog administered in RLQ per sliding scale. Pt on continuos Tube Feeding currently running at 20 mL/Hr.
--- NOTE | 2018-09-09 19:15 | NUR ---
HAND-OFF: Report given to Amol West RN..
[2018-09-09 20:00] VITALS: BP 124/63
[2018-09-10] VITALS: BP 122/75
[2018-09-10] MEDS: NovoLOG Insulin Flexpen SUBQ SCH ×5 (00:50→23:42)
[2018-09-10] MEDS: Metoclopramide 10mg/2ml Inj IVP PRN (00:54)
[2018-09-10 04:00] VITALS: BP 100/70
[2018-09-10] MEDS: Vancomycin 1gm/D5W 275ml IVPB SCH ×6 (04:35→20:36)
[2018-09-10] MEDS: Piperacillin/Tazobactam 3.375 GM in NS 110 ML IVPB SCH ×3 (06:42→22:13)
--- NOTE | 2018-09-10 07:31 | NUR ---
NURSE NOTES: Received report PASHA Mullen patient asleep,on ventilator,padded side rails,seizure precaution,head elevated,G tube feeding 25 ml/hr-goal 70,had residuals previous shift per report
[2018-09-10 08:10] VITALS: BP 94/65
--- NOTE | 2018-09-10 09:11 | Pulmonology Progress Note ---
Assessment/Plan Assessment/Plan Pulmonary Progress Note 43-year-old male, bedbound, CVA, tonic vegetative state, nonverbal, history of seizures, presents with persistent seizures. Patient with persistent seizures and presented as focal twitching of his face as well as his head and his left arm. He was also febrile to 102 and admitted Allergies: No Known Allergies (Unverified , 07/21/16) Past Medical History: diabetes, elevated cholesterol, trach, gt, respiratory failure, seizure disorder Past Surgical History: Tracheostomy Pertinent Family History: none Physical Examination VSS noted WDWN NAD trach clear breath sounds bilaterally without rhonchi or wheeze [id number] without MRG NABS nontender no HSM no CCE poorly responsive Labs Test 09/08/18 14:40 09/08/18 15:00 09/08/18 16:34 09/09/18 03:20 White Blood Count 14.9 K/UL (4.8-10.8) 14.1 K/UL (4.8-10.8) Red Blood Count 3.14 M/UL (4.70-6.10) 3.18 M/UL (4.70-6.10) Hemoglobin 10.0 G/DL (14.2-18.0) 10.1 G/DL (14.2-18.0) Hematocrit 28.4 % (42.0-52.0) 29.2 % (42.0-52.0) Mean Corpuscular Volume 90 FL (80-99) 92 FL (80-99) Mean Corpuscular Hemoglobin 31.7 PG (27.0-31.0) 31.8 PG (27.0-31.0) Mean Corpuscular Hemoglobin Concent 35.1 G/DL (32.0-36.0) 34.7 G/DL (32.0-36.0) Red Cell Distribution Width 12.3 % (11.6-14.8) 12.7 % (11.6-14.8) Platelet Count 343 K/UL (150-450) 336 K/UL (150-450) Mean Platelet Volume 5.6 FL (6.5-10.1) 5.7 FL (6.5-10.1) Neutrophils (%) (Auto) 76.6 % (45.0-75.0) 84.6 % (45.0-75.0) Lymphocytes (%) (Auto) 13.6 % (20.0-45.0) 7.9 % (20.0-45.0) Monocytes (%) (Auto) 7.9 % (1.0-10.0) 6.7 % (1.0-10.0) Eosinophils (%) (Auto) 0.2 % (0.0-3.0) 0.1 % (0.0-3.0) Basophils (%) (Auto) 1.7 % (0.0-2.0) 0.7 % (0.0-2.0) Prothrombin Time 12.6 SEC (9.30-11.50) Prothromb Time International Ratio 1.2 (0.9-1.1) Activated Partial Thromboplast Time 32 SEC (23-33) Arterial Blood pH 7.414 (7.350-7.450) Arterial Blood Partial Pressure CO2 49.3 mmHg (35.0-45.0) Arterial Blood Partial Pressure O2 77.3 mmHg (75.0-100.0) Arterial Blood HCO3 30.8 mmol/L (22.0-26.0) Arterial Blood Oxygen Saturation 93.8 % (95-100) Arterial Blood Base Excess 5.4 (-2-2) [place] Test Positive Sodium Level 133 MMOL/L (136-145) 132 MMOL/L (136-145) Potassium Level 3.3 MMOL/L (3.5-5.1) 3.7 MMOL/L (3.5-5.1) Chloride Level 93 MMOL/L (98-107) 93 MMOL/L (98-107) Carbon Dioxide Level 31 MMOL/L (21-32) 29 MMOL/L (21-32) Anion Gap 9 mmol/L (5-15) 10 mmol/L (5-15) Blood Urea Nitrogen 25 mg/dL (7-18) 20 mg/dL (7-18) Creatinine 0.9 MG/DL (0.55-1.30) 0.6 MG/DL (0.55-1.30) Estimat Glomerular Filtration Rate > 60 mL/min (>60) > 60 mL/min (>60) Glucose Level 43 MG/DL (74-106) 145 MG/DL (74-106) Lactic Acid Level 1.00 mmol/L (0.4-2.0) Calcium Level 9.6 MG/DL (8.5-10.1) 8.6 MG/DL (8.5-10.1) Total Bilirubin 0.3 MG/DL (0.2-1.0) Aspartate Amino Transf (AST/SGOT) 38 U/L (15-37) Alanine Aminotransferase (ALT/SGPT) 33 U/L (12-78) Alkaline Phosphatase 230 U/L (46-116) Total Creatine Kinase 138 U/L (26-308) Creatine Kinase MB 0.6 NG/ML (0.0-3.6) Creatine Kinase MB Relative Index 0.4 Troponin I 0.000 ng/mL (0.000-0.056) Pro-B-Type Natriuretic Peptide 169 pg/mL (0-125) Total Protein 8.4 G/DL (6.4-8.2) Albumin 3.0 G/DL (3.4-5.0) Globulin 5.4 g/dL Albumin/Globulin Ratio 0.6 (1.0-2.7) Urine Color Red Urine Appearance Very cloudy Urine pH 6 (4.5-8.0) Urine Specific [place] 1.010 (1.005-1.035) Urine Protein 3+ (NEGATIVE) Urine Glucose (UA) Negative (NEGATIVE) Urine Ketones 1+ (NEGATIVE) Urine Blood 5+ (NEGATIVE) Urine Nitrite Negative (NEGATIVE) Urine Bilirubin Negative (NEGATIVE) Urine Urobilinogen Normal MG/DL (0.0-1.0) Urine Leukocyte Esterase 3+ (NEGATIVE) Urine RBC Tntc /HPF (0 - 0) Urine WBC 30-40 /HPF (0 - 0) Urine Squamous Epithelial Cells None /LPF (NONE/OCC) Urine Bacteria Few /HPF (NONE) IMPRESSION respiratory failure trach seizures fever leukocytosis possible sepsis PLAN ID evaluation Iv antibiotics respiratory care oxygen seizure meds monitor ativan sliding scale impression, plan, and exam edited and reviewed in detail care discussed with RN Subjective ROS Limited/Unobtainable: No Allergies: Coded Allergies: No Known Allergies (Unverified , 07/21/16) Objective Last 24 Hour Vital Signs Date Time Temp Pulse Resp B/P (MAP) Pulse Ox O2 Delivery O2 Flow Rate FiO2 09/10/18 08:10 100.7 111 18 94/65 100 09/10/18 06:33 88 16 40 09/10/18 05:21 12 19 40 09/10/18 04:00 98.5 99 16 100/70 100 09/10/18 04:00 40 09/10/18 04:00 Mechanical Ventilator 09/10/18 04:00 99 09/10/18 03:19 105 16 40 09/10/18 01:41 99.4 09/10/18 00:51 116 16 40 09/10/18 00:00 40 09/10/18 00:00 98.6 110 17 122/75 100 09/10/18 00:00 122 09/10/18 00:00 Mechanical Ventilator 09/09/18 23:08 116 16 40 09/09/18 21:37 115 17 40 09/09/18 20:00 100.9 131 16 124/63 100 09/09/18 20:00 40 09/09/18 20:00 126 09/09/18 20:00 Mechanical Ventilator 09/09/18 19:18 144 19 40 09/09/18 16:40 84 23 40 09/09/18 16:05 113 09/09/18 16:00 Mechanical Ventilator 09/09/18 16:00 98.2 112 20 108/76 100 09/09/18 16:00 40 09/09/18 13:40 153 09/09/18 13:14 87 23 40 09/09/18 12:00 99.9 139 18 118/82 100 09/09/18 12:00 Mechanical Ventilator 09/09/18 12:00 36 09/09/18 10:50 89 20 40 Intake and Output 09/09/18 09/10/18 19:00 07:00 Intake Total 467.500 ml 650.000 ml Output Total 200 ml 500 ml Balance 267.500 ml 150.000 ml Intake Free Water 20 ml IV Total 357.500 ml 385.000 ml Tube Feeding 70 ml 205 ml Other 20 ml 60 ml Output Urine Total 200 ml 500 ml # Bowel Movements 1 Microbiology Date/Time Source Procedure Growth Status 09/08/18 15:06 Nasal Nares Influenza Types A,B Antigen (TREASURE) - Final Complete 09/08/18 16:34 Urine,Clean Catch Urine Culture - Preliminary Yeast Species Resulted Current Medications Medications (Trade) Dose Ordered Sig/Guillermo Route PRN Reason Start Time Stop Time Status Last Admin Dose Admin Acetaminophen (Tylenol) 650 mg Q4H PRN ORAL Mild Pain/Temp > 100.5 09/08/18 20:00 10/08/18 19:59 09/10/18 01:11 Acetaminophen/ Hydrocodone Bitart ([place] 5/325) 1 tab Q4H PRN ORAL PAIN 4-10 09/08/18 20:15 09/15/18 20:14 Aspirin (Ecotrin) 81 mg DAILY ORAL 09/09/18 09:00 10/09/18 08:59 Bisacodyl (Dulcolax) 10 mg DAILYPRN PRN RECTAL Constipation 09/08/18 20:15 10/08/18 20:14 Carbamazepine (TEGretol) 400 mg TID GT 09/09/18 09:00 10/09/18 08:59 09/09/18 17:12 Dextrose (Dextrose 50%) 25 ml Q30M PRN IV Hypoglycemia 09/09/18 14:15 10/09/18 14:14 Dextrose (Dextrose 50%) 50 ml Q30M PRN IV Hypoglycemia 09/09/18 14:15 10/09/18 14:14 Ferrous Sulfate (Feosol) 325 mg BID GT 09/09/18 09:00 10/09/18 08:59 09/09/18 17:11 Heparin Sodium (Porcine) (Heparin 5000 units/ml) 5,000 units EVERY 12 HOURS SUBQ 09/08/18 21:00 10/08/18 20:59 09/09/18 20:33 Insulin Aspart (NovoLOG) Q6HR SUBQ 09/09/18 18:00 10/09/18 17:59 09/10/18 00:50 Levetiracetam (Keppra) 500 mg Q12HR GT 09/08/18 21:00 10/08/18 20:59 09/09/18 20:32 Lorazepam (Ativan 2mg/ml 1ml) 1 mg Q2HR PRN IV For Seizures 09/08/18 20:00 09/15/18 19:59 Magnesium Hydroxide (Mom) 30 ml DAILYPRN PRN GT Constipation 09/08/18 20:15 10/08/18 20:14 Metoclopramide HCl (Reglan) 10 mg Q6H PRN IVP Nausea & Vomiting 09/09/18 11:45 10/09/18 11:44 09/10/18 00:54 Midodrine (Pro-Amatine) 2.5 mg THREE TIMES A DAY GT 09/09/18 09:00 10/09/18 08:59 09/09/18 17:12 Piperacillin Sod/ Tazobactam Sod 3.375 gm/Sodium Chloride 110 ml @ 27.5 mls/hr Q8HR IVPB 09/09/18 14:00 09/16/18 13:59 09/10/18 06:42 Valproic Acid (Depakene) 1,500 mg EVERY 12 HOURS GT 09/09/18 09:00 10/09/18 08:59 09/09/18 20:32 Vancomycin HCl (Vanco rx to dose) 1 ea DAILY PRN MISC Per rx protocol 09/09/18 11:45 10/09/18 11:44 Vancomycin HCl 1 gm/Dextrose 275 ml @ 183.708 mls/hr Q8H IVPB 09/09/18 13:00 09/14/18 12:59 09/10/18 04:35 Jl Ash MD Sep 10, 2018 09:11
[2018-09-10] MEDS: Valproic Acid 250mg/5ml Liquid GT SCH ×2 (09:17→20:37)
[2018-09-10] MEDS: Ferrous Sulfate 300 MG/5 ML UDC GT SCH ×2 (09:18→17:08)
[2018-09-10] MEDS: Aspirin EC 81mg tab ORAL SCH (09:18)
[2018-09-10] MEDS: levETIRAcetam 500mg/5ml Liquid GT SCH ×2 (09:18→20:36)
[2018-09-10] MEDS: carBAMazepine 200mg tab GT SCH ×3 (09:19→17:07)
[2018-09-10] MEDS: Heparin 5000 units/ml inj SUBQ SCH ×2 (09:20→20:38)
--- NOTE | 2018-09-10 11:15 | Consultation ---
DATE OF CONSULTATION: 09/10/2018 INFECTIOUS DISEASES CONSULTATION CONSULTING PHYSICIAN: Tracie Isaac M.D. REFERRING PHYSICIAN: Andres Wakefield M.D. REASON FOR CONSULTATION: Fever. HISTORY OF PRESENTING ILLNESS: This is a 43-year-old gentleman with history of CVA, diabetes, hypercholesterolemia, respiratory failure, status post tracheostomy, seizure disorder, who comes in with persistent seizures along with fevers. An Infectious Diseases consultation has been obtained for fevers as well as for urinary tract infection. PAST MEDICAL HISTORY: 1. History of diabetes. 2. Hypercholesterolemia. 3. Respiratory failure, status post tracheostomy. 4. Status post G-tube placement. 5. Seizures. SOCIAL HISTORY: Unknown. FAMILY HISTORY: Unknown. REVIEW OF SYSTEMS: Unable to obtain currently. MEDICATIONS: As an inpatient, the patient is on insulin, Zosyn, IV vancomycin, Reglan, Tegretol, ProAmatine, aspirin, ferrous sulfate, valproic acid, subcutaneous heparin, Keppra, Dulcolax, [place], milk of magnesia, Ativan, and Tylenol. ALLERGIES: No known drug allergies. PHYSICAL EXAMINATION: VITAL SIGNS: Temperature of 100.7, T-max of 103.8, pulse of 113, respiratory rate of 16, blood pressure 94/65, and O2 saturation of 100%. HEENT: Pupils equally reactive to light and accommodation. Mouth appears clean without thrush. NECK: Supple. No adenopathy. No JVD. Tracheostomy site appears clean. CARDIOVASCULAR: Regular rate and rhythm. No murmurs. LUNGS: Clear to auscultation bilaterally. No crackles. No wheezes. ABDOMEN: Soft and nontender. No organomegaly. G-tube site appears clean. EXTREMITIES: No cyanosis, no clubbing, no edema. LABORATORY AND DIAGNOSTIC DATA: White count 14.1, hemoglobin 10.1, hematocrit 29.2, MCV 92, platelet count 336 with neutrophils of 84%. Sodium 132, potassium 3.7, chloride 93, bicarb 29, BUN 20, creatinine 0.6, glucose 145, calcium . Total bilirubin 0.3. AST 38, ALT 33, and alkaline phosphatase 230. CK 138, CK-MB 0.6. Troponin 0. Beta natriuretic peptide 169. Total protein 8.4. Albumin of 3. UA showing 30 to 40 white cells. Urine culture is growing yeast 60,000 to 70,000 colonies. Nasal swab was negative for influenza A and B. Chest x-ray is showing scarring in the left perihilar region with slight volume loss. ASSESSMENT: This is a 43-year-old gentleman with history of CVA, seizures, respiratory failure, status post tracheostomy, who comes in with fevers and was found to have: 1. Fungal urinary tract infection. 2. Seizures. 3. We would like to rule out aspiration pneumonia as a possibility. PLAN: 1. Continue IV vancomycin and Zosyn for now. 2. We will start the patient on fluconazole. 3. We will order sputum cultures. 4. We will follow up cultures and adjust antibiotics accordingly. I would like to thank, Dr. Wakefield, for this consultation. Tracie Isaac M.D. DR: SHEY JOB#: [id number] CC: Andres Wakefield M.D.; Fax#: [phone]
[2018-09-10 12:00] VITALS: BP 125/78
[2018-09-10] MEDS ORDERED: Acetaminophen 650mg/20.3ml NG PRN (13:00)
[2018-09-10] MEDS: Fluconazole 100mg tab GT SCH (13:07)
[2018-09-10] MEDS: Acetaminophen 650mg/20.3ml GT PRN (13:59)
[2018-09-10 16:00] VITALS: BP 102/71
--- NOTE | 2018-09-10 19:20 | NUR ---
HAND-OFF: Report given to PASHA Zapata pt on ventilator,asleep.
--- NOTE | 2018-09-10 19:21 | NUR ---
NURSE NOTES: Received patient from PASHA Coello. Patient is obtunded. On trach Portex 9 to vent with setting of AC:16, TV:600, FiO2:40%, PEEP:5 and O2 saturating at 90% showing no signs and symptoms of pain and/or distress. Will continue plan of care.
[2018-09-10 20:00] VITALS: BP 109/79
[2018-09-10] MEDS ORDERED: Tubing IV Secondary IV ONE (20:01)
[2018-09-10] MEDS ORDERED: NS 275ml ONE (20:01)
[2018-09-10] MEDS ORDERED: Sterile Water For Irrig 2000ml IRRIG ONE (20:01)
[2018-09-11] VITALS: BP 119/78
[2018-09-11 04:00] VITALS: BP 126/91
--- NOTE | 2018-09-11 04:46 | NUR ---
RESPIRATORY NOTE: PT REMAINED STABLE ON CMV WITH CURRENT SETTINGS. SXN'D PRN WITHOUT ADVERSE REACTION. VENT CIRCUIT SECURE AND OUT OF THE WAY. NO S/S OF RESPIRATORY DISTRESS NOTED AT THIS TIME.
[2018-09-11] MEDS: Vancomycin 1gm/D5W 275ml IVPB SCH ×6 (05:17→21:00)
[2018-09-11] MEDS: Piperacillin/Tazobactam 3.375 GM in NS 110 ML IVPB SCH ×3 (06:37→22:46)
[2018-09-11] MEDS: NovoLOG Insulin Flexpen SUBQ SCH ×3 (06:38→18:11)
--- NOTE | 2018-09-11 07:06 | NUR ---
RESPIRATORY NOTE: Patient received mechanically ventilated on PB 840 with current ordered vent settings. Patient has trach size 9.0 Portex cuffed that is secured with a trach tie and guard. Patient presents with bilateral coarse breath sounds upon auscultation. Moderate amount of thick yellow/white secretion were suctioned via inline suction system with no incident. There is an ambu bag available at the bedside and the vent is connected to a red outlet. Vent alarms are functional and audible. Will continue to monitor.
--- NOTE | 2018-09-11 07:30 | NUR ---
NURSE NOTES: Copy of notes left for Elieser Arriaza Rn for continue of care. Charge nurse aware.
--- NOTE | 2018-09-11 07:36 | NUR ---
HAND-OFF: Report given to PASHA BROWN.
--- NOTE | 2018-09-11 07:40 | NUR ---
NURSE NOTES: RECEIVED BED SIDE REPORT FROM FAYE PAK OF NOC SHIFT.RECEIVED PT WITH HOB ELEVATED 45 DEGREE,AWAKE NON-VERBAL TRACH TO VENT TOLERATING WELL CURRENTS VENT SETTINGS ,SAT 100% .PT WITH PORTEX #9 PATENT AND INTACT ,AC 16 , TV 600,50% FIO2,PEEP 5.RENDERED TRACH CARE AND ORAL HYGIENE,SX,D MOD AMT OF WHITE TICK SECRETIONS ,PT REPOSITIONED IN BED TO PROVIDE COMFORT AND TO PREVENT FURTHER SKIN BREAK DOWN.PT RECEIVING GLUCERNA 1.2 @ 45 CC/HRS,TOLERATING WELL,NO RESIDUAL NOTED AT THIS TIME.WILL CONT TO MONITOR.
[2018-09-11 08:00] VITALS: BP 101/67
[2018-09-11] MEDS: Aspirin Baby 81mg GT SCH (09:00)
[2018-09-11] MEDS: carBAMazepine 200mg tab GT SCH ×3 (09:01→18:15)
[2018-09-11] MEDS: Ferrous Sulfate 300 MG/5 ML UDC GT SCH ×2 (09:02→18:13)
[2018-09-11] MEDS: Valproic Acid 250mg/5ml Liquid GT SCH ×2 (09:02→20:53)
[2018-09-11] MEDS: levETIRAcetam 500mg/5ml Liquid GT SCH ×2 (09:02→20:52)
[2018-09-11] MEDS: Heparin 5000 units/ml inj SUBQ SCH ×2 (09:05→21:00)
--- NOTE | 2018-09-11 10:31 | NUR ---
CASE MANAGEMENT: REVIEW 09/11/2018 SI: SEPSIS. T 97.9 HR 112 RR 16 B/P 126/91 SATS 96% ON MECH VENT FiO2 50 NO LABS TODAY IS: DEPAKENE GT Q12H FEOSOL GT BID ASA GT QD KEPPRA GT Q12H DIFLUCAN GT Q24H INSULIN ASPART SUBQ Q6H VANCO IV Q8H ZOSYN IV Q8H TEGRETOL GT TID MIDODRINE GT TID ISAAC STATUS DCP: PATIENT IS FROM [facility]
--- NOTE | 2018-09-11 11:11 | Infectious Diseases Prog Note ---
Assessment/Plan Assessment/Plan A; Sepsis Xenia UTI ? pneumonia VDRF s/p CVA P: Continue Zosyn, Vancomycin & Fluconazole repeat CXR Subjective ROS Limited/Unobtainable: Yes Allergies: Coded Allergies: No Known Allergies (Unverified , 07/21/16) Objective Vital Signs Last 24 Hour Vital Signs Date Time Temp Pulse Resp B/P (MAP) Pulse Ox O2 Delivery O2 Flow Rate FiO2 09/11/18 09:22 109 23 40 09/11/18 08:00 97.7 95 18 101/67 100 09/11/18 08:00 50 09/11/18 08:00 95 09/11/18 08:00 Mechanical Ventilator 09/11/18 06:55 91 17 40 09/11/18 04:46 110 25 40 09/11/18 04:00 Mechanical Ventilator 09/11/18 04:00 50 09/11/18 04:00 97.9 112 16 126/91 96 09/11/18 03:54 110 09/11/18 03:07 103 20 40 09/11/18 01:00 108 20 40 09/11/18 00:00 50 09/11/18 00:00 Mechanical Ventilator 09/11/18 00:00 98.4 117 16 119/78 96 09/10/18 23:31 135 09/10/18 23:13 110 26 40 09/10/18 23:10 115 22 40 09/10/18 20:25 113 26 40 09/10/18 20:00 50 09/10/18 20:00 Mechanical Ventilator 09/10/18 20:00 98.2 115 23 109/79 97 09/10/18 19:38 117 09/10/18 16:42 116 20 40 09/10/18 16:18 98 09/10/18 16:00 98.2 111 18 102/71 100 09/10/18 16:00 Mechanical Ventilator 09/10/18 16:00 40 09/10/18 14:47 113 16 40 09/10/18 14:25 98.8 09/10/18 12:51 122 16 40 09/10/18 12:30 153 09/10/18 12:00 101.8 96 20 125/78 100 Mechanical Ventilator 40 09/10/18 12:00 40 09/10/18 12:00 Mechanical Ventilator 09/10/18 11:30 108 Height (Feet): 5 Height (Inches): 8.00 Weight (Pounds): 220 HEENT: status post trach Respiratory/Chest: lungs clear, other - on ventilator Cardiovascular: tachycardia Abdomen: soft, non tender, other - GT feeding Extremities: no edema Neurologic/Psychiatric: aphasia Microbiology Date/Time Source Procedure Growth Status 09/08/18 16:45 Blood Blood Culture - Preliminary NO GROWTH AFTER 48 HOURS Resulted 09/08/18 16:30 Blood Blood Culture - Preliminary NO GROWTH AFTER 48 HOURS Resulted 09/10/18 13:00 Sputum Gram Stain - Final Resulted 09/10/18 13:00 Sputum Sputum Culture Pending Resulted 09/08/18 15:06 Nasal Nares Influenza Types A,B Antigen (TREASURE) - Final Complete 09/08/18 16:34 Urine,Clean Catch Urine Culture - Final Xenia Tropicalis Complete Laboratory Tests Test 09/10/18 12:00 Vancomycin Level Trough 19.2 ug/mL (5.0-12.0) H Current Medications Medications (Trade) Dose Ordered Sig/Guillermo Route PRN Reason Start Time Stop Time Status Last Admin Dose Admin Acetaminophen (Tylenol) 650 mg Q4H PRN GT Mild Pain/Temp > 100.5 09/10/18 13:03 10/10/18 13:02 09/10/18 13:59 Acetaminophen/ Hydrocodone Bitart ([place] 5/325) 1 tab Q4H PRN ORAL PAIN 4-10 09/08/18 20:15 09/15/18 20:14 Aspirin (ASA) 81 mg DAILY GT 09/11/18 09:00 10/11/18 08:59 09/11/18 09:00 Bisacodyl (Dulcolax) 10 mg DAILYPRN PRN RECTAL Constipation 09/08/18 20:15 10/08/18 20:14 Carbamazepine (TEGretol) 400 mg TID GT 09/09/18 09:00 10/09/18 08:59 09/11/18 09:01 Dextrose (Dextrose 50%) 25 ml Q30M PRN IV Hypoglycemia 09/09/18 14:15 10/09/18 14:14 Dextrose (Dextrose 50%) 50 ml Q30M PRN IV Hypoglycemia 09/09/18 14:15 10/09/18 14:14 Ferrous Sulfate (Feosol) 325 mg BID GT 09/09/18 09:00 10/09/18 08:59 09/11/18 09:02 Fluconazole (Diflucan) 100 mg Q24H GT 09/10/18 11:00 09/17/18 10:59 09/10/18 13:07 Heparin Sodium (Porcine) (Heparin 5000 units/ml) 5,000 units EVERY 12 HOURS SUBQ 09/08/18 21:00 10/08/18 20:59 09/11/18 09:05 Insulin Aspart (NovoLOG) Q6HR SUBQ 09/09/18 18:00 10/09/18 17:59 09/11/18 06:38 Levetiracetam (Keppra) 500 mg Q12HR GT 09/08/18 21:00 10/08/18 20:59 09/11/18 09:02 Lorazepam (Ativan 2mg/ml 1ml) 1 mg Q2HR PRN IV For Seizures 09/08/18 20:00 09/15/18 19:59 Magnesium Hydroxide (Mom) 30 ml DAILYPRN PRN GT Constipation 09/08/18 20:15 10/08/18 20:14 Metoclopramide HCl (Reglan) 10 mg Q6H PRN IVP Nausea & Vomiting 09/09/18 11:45 10/09/18 11:44 09/10/18 00:54 Midodrine (Pro-Amatine) 2.5 mg THREE TIMES A DAY GT 09/09/18 09:00 10/09/18 08:59 09/11/18 09:01 Piperacillin Sod/ Tazobactam Sod 3.375 gm/Sodium Chloride 110 ml @ 27.5 mls/hr Q8HR IVPB 09/09/18 14:00 09/16/18 13:59 09/11/18 06:37 Valproic Acid (Depakene) 1,500 mg EVERY 12 HOURS GT 09/09/18 09:00 10/09/18 08:59 09/11/18 09:02 Vancomycin HCl (Vanco rx to dose) 1 ea DAILY PRN MISC Per rx protocol 09/09/18 11:45 10/09/18 11:44 Vancomycin HCl 1 gm/Dextrose 275 ml @ 183.708 mls/hr Q8H IVPB 09/09/18 13:00 09/14/18 12:59 09/11/18 05:17 John Elizalde MD Sep 11, 2018 11:11
[2018-09-11] MEDS: Fluconazole 100mg tab GT SCH (11:14)
[2018-09-11 12:00] VITALS: BP 110/69
--- NOTE | 2018-09-11 13:08 | Cardiology Report ---
APPROVED REPORT EKG Measurement Heart [id number] Sinus tachycardia Left posterior fascicular block Abnormal ECG
[2018-09-11] MEDS ORDERED: Sterile Water Irrig 1000ml IRRIG ONE (13:15)
[2018-09-11] MEDS ORDERED: NS 275ml ONE (13:15)
[2018-09-11 16:00] VITALS: BP 134/59
--- NOTE | 2018-09-11 16:05 | Pulmonology Progress Note ---
Assessment/Plan Assessment/Plan Pulmonary Progress Note 43-year-old male, bedbound, CVA, tonic vegetative state, nonverbal, history of seizures, presents with persistent seizures. Patient with persistent seizures and presented as focal twitching of his face as well as his head and his left arm. He was also febrile to 102 and admitted Allergies: No Known Allergies (Unverified , 07/21/16) Past Medical History: diabetes, elevated cholesterol, trach, gt, respiratory failure, seizure disorder Past Surgical History: Tracheostomy Pertinent Family History: none Physical Examination VSS noted WDWN NAD trach clear breath sounds bilaterally without rhonchi or wheeze [id number] without MRG NABS nontender no HSM no CCE poorly responsive Labs Test 09/08/18 14:40 09/08/18 15:00 09/08/18 16:34 09/09/18 03:20 White Blood Count 14.9 K/UL (4.8-10.8) 14.1 K/UL (4.8-10.8) Red Blood Count 3.14 M/UL (4.70-6.10) 3.18 M/UL (4.70-6.10) Hemoglobin 10.0 G/DL (14.2-18.0) 10.1 G/DL (14.2-18.0) Hematocrit 28.4 % (42.0-52.0) 29.2 % (42.0-52.0) Mean Corpuscular Volume 90 FL (80-99) 92 FL (80-99) Mean Corpuscular Hemoglobin 31.7 PG (27.0-31.0) 31.8 PG (27.0-31.0) Mean Corpuscular Hemoglobin Concent 35.1 G/DL (32.0-36.0) 34.7 G/DL (32.0-36.0) Red Cell Distribution Width 12.3 % (11.6-14.8) 12.7 % (11.6-14.8) Platelet Count 343 K/UL (150-450) 336 K/UL (150-450) Mean Platelet Volume 5.6 FL (6.5-10.1) 5.7 FL (6.5-10.1) Neutrophils (%) (Auto) 76.6 % (45.0-75.0) 84.6 % (45.0-75.0) Lymphocytes (%) (Auto) 13.6 % (20.0-45.0) 7.9 % (20.0-45.0) Monocytes (%) (Auto) 7.9 % (1.0-10.0) 6.7 % (1.0-10.0) Eosinophils (%) (Auto) 0.2 % (0.0-3.0) 0.1 % (0.0-3.0) Basophils (%) (Auto) 1.7 % (0.0-2.0) 0.7 % (0.0-2.0) Prothrombin Time 12.6 SEC (9.30-11.50) Prothromb Time International Ratio 1.2 (0.9-1.1) Activated Partial Thromboplast Time 32 SEC (23-33) Arterial Blood pH 7.414 (7.350-7.450) Arterial Blood Partial Pressure CO2 49.3 mmHg (35.0-45.0) Arterial Blood Partial Pressure O2 77.3 mmHg (75.0-100.0) Arterial Blood HCO3 30.8 mmol/L (22.0-26.0) Arterial Blood Oxygen Saturation 93.8 % (95-100) Arterial Blood Base Excess 5.4 (-2-2) Dewey Test Positive Sodium Level 133 MMOL/L (136-145) 132 MMOL/L (136-145) Potassium Level 3.3 MMOL/L (3.5-5.1) 3.7 MMOL/L (3.5-5.1) Chloride Level 93 MMOL/L (98-107) 93 MMOL/L (98-107) Carbon Dioxide Level 31 MMOL/L (21-32) 29 MMOL/L (21-32) Anion Gap 9 mmol/L (5-15) 10 mmol/L (5-15) Blood Urea Nitrogen 25 mg/dL (7-18) 20 mg/dL (7-18) Creatinine 0.9 MG/DL (0.55-1.30) 0.6 MG/DL (0.55-1.30) Estimat Glomerular Filtration Rate > 60 mL/min (>60) > 60 mL/min (>60) Glucose Level 43 MG/DL (74-106) 145 MG/DL (74-106) Lactic Acid Level 1.00 mmol/L (0.4-2.0) Calcium Level 9.6 MG/DL (8.5-10.1) 8.6 MG/DL (8.5-10.1) Total Bilirubin 0.3 MG/DL (0.2-1.0) Aspartate Amino Transf (AST/SGOT) 38 U/L (15-37) Alanine Aminotransferase (ALT/SGPT) 33 U/L (12-78) Alkaline Phosphatase 230 U/L (46-116) Total Creatine Kinase 138 U/L (26-308) Creatine Kinase MB 0.6 NG/ML (0.0-3.6) Creatine Kinase MB Relative Index 0.4 Troponin I 0.000 ng/mL (0.000-0.056) Pro-B-Type Natriuretic Peptide 169 pg/mL (0-125) Total Protein 8.4 G/DL (6.4-8.2) Albumin 3.0 G/DL (3.4-5.0) Globulin 5.4 g/dL Albumin/Globulin Ratio 0.6 (1.0-2.7) Urine Color Red Urine Appearance Very cloudy Urine pH 6 (4.5-8.0) Urine Specific [place] 1.010 (1.005-1.035) Urine Protein 3+ (NEGATIVE) Urine Glucose (UA) Negative (NEGATIVE) Urine Ketones 1+ (NEGATIVE) Urine Blood 5+ (NEGATIVE) Urine Nitrite Negative (NEGATIVE) Urine Bilirubin Negative (NEGATIVE) Urine Urobilinogen Normal MG/DL (0.0-1.0) Urine Leukocyte Esterase 3+ (NEGATIVE) Urine RBC Tntc /HPF (0 - 0) Urine WBC 30-40 /HPF (0 - 0) Urine Squamous Epithelial Cells None /LPF (NONE/OCC) Urine Bacteria Few /HPF (NONE) IMPRESSION respiratory failure trach seizures fever leukocytosis possible sepsis PLAN ID evaluation Iv antibiotics respiratory care oxygen seizure meds monitor ativan sliding scale impression, plan, and exam edited and reviewed in detail care discussed with RN Subjective ROS Limited/Unobtainable: No Allergies: Coded Allergies: No Known Allergies (Unverified , 07/21/16) Objective Last 24 Hour Vital Signs Date Time Temp Pulse Resp B/P (MAP) Pulse Ox O2 Delivery O2 Flow Rate FiO2 09/11/18 14:31 101 16 40 09/11/18 12:51 89 20 40 09/11/18 12:00 50 09/11/18 12:00 Mechanical Ventilator 09/11/18 12:00 98.1 94 18 110/69 100 09/11/18 11:19 96 18 40 09/11/18 09:22 109 23 40 09/11/18 08:00 97.7 95 18 101/67 100 09/11/18 08:00 50 09/11/18 08:00 95 09/11/18 08:00 Mechanical Ventilator 09/11/18 06:55 91 17 40 09/11/18 04:46 110 25 40 09/11/18 04:00 Mechanical Ventilator 09/11/18 04:00 50 09/11/18 04:00 97.9 112 16 126/91 96 09/11/18 03:54 110 09/11/18 03:07 103 20 40 09/11/18 01:00 108 20 40 09/11/18 00:00 50 09/11/18 00:00 Mechanical Ventilator 09/11/18 00:00 98.4 117 16 119/78 96 09/10/18 23:31 135 09/10/18 23:13 110 26 40 09/10/18 23:10 115 22 40 09/10/18 20:25 113 26 40 09/10/18 20:00 50 09/10/18 20:00 Mechanical Ventilator 09/10/18 20:00 98.2 115 23 109/79 97 09/10/18 19:38 117 09/10/18 16:42 116 20 40 09/10/18 16:18 98 Intake and Output 09/10/18 09/11/18 19:00 07:00 Intake Total 772.500 ml 1033.688 ml Output Total 475 ml Balance 297.500 ml 1033.688 ml IV Total 357.500 ml 653.688 ml Tube Feeding 415 ml 380 ml Output Urine Total 475 ml Microbiology Date/Time Source Procedure Growth Status 09/08/18 16:45 Blood Blood Culture - Preliminary NO GROWTH AFTER 48 HOURS Resulted 09/08/18 16:30 Blood Blood Culture - Preliminary NO GROWTH AFTER 48 HOURS Resulted 09/10/18 13:00 Sputum Gram Stain - Final Resulted 09/10/18 13:00 Sputum Sputum Culture Pending Resulted 09/08/18 16:34 Urine,Clean Catch Urine Culture - Final Xenia Tropicalis Complete Current Medications Medications (Trade) Dose Ordered Sig/Guillermo Route PRN Reason Start Time Stop Time Status Last Admin Dose Admin Acetaminophen (Tylenol) 650 mg Q4H PRN GT Mild Pain/Temp > 100.5 09/10/18 13:03 10/10/18 13:02 09/10/18 13:59 Acetaminophen/ Hydrocodone Bitart ([place] 5/325) 1 tab Q4H PRN ORAL PAIN 4-10 09/08/18 20:15 09/15/18 20:14 Aspirin (ASA) 81 mg DAILY GT 09/11/18 09:00 10/11/18 08:59 09/11/18 09:00 Bisacodyl (Dulcolax) 10 mg DAILYPRN PRN RECTAL Constipation 09/08/18 20:15 10/08/18 20:14 Carbamazepine (TEGretol) 400 mg TID GT 09/09/18 09:00 10/09/18 08:59 09/11/18 13:13 Dextrose (Dextrose 50%) 25 ml Q30M PRN IV Hypoglycemia 09/09/18 14:15 10/09/18 14:14 Dextrose (Dextrose 50%) 50 ml Q30M PRN IV Hypoglycemia 09/09/18 14:15 10/09/18 14:14 Ferrous Sulfate (Feosol) 325 mg BID GT 09/09/18 09:00 10/09/18 08:59 09/11/18 09:02 Fluconazole (Diflucan) 100 mg Q24H GT 09/10/18 11:00 09/17/18 10:59 09/11/18 11:14 Heparin Sodium (Porcine) (Heparin 5000 units/ml) 5,000 units EVERY 12 HOURS SUBQ 09/08/18 21:00 10/08/18 20:59 09/11/18 09:05 Insulin Aspart (NovoLOG) Q6HR SUBQ 09/09/18 18:00 10/09/18 17:59 09/11/18 13:05 Levetiracetam (Keppra) 500 mg Q12HR GT 09/08/18 21:00 10/08/18 20:59 09/11/18 09:02 Lorazepam (Ativan 2mg/ml 1ml) 1 mg Q2HR PRN IV For Seizures 09/08/18 20:00 09/15/18 19:59 Magnesium Hydroxide (Mom) 30 ml DAILYPRN PRN GT Constipation 09/08/18 20:15 10/08/18 20:14 Metoclopramide HCl (Reglan) 10 mg Q6H PRN IVP Nausea & Vomiting 09/09/18 11:45 10/09/18 11:44 09/10/18 00:54 Midodrine (Pro-Amatine) 2.5 mg THREE TIMES A DAY GT 09/09/18 09:00 10/09/18 08:59 09/11/18 13:12 Piperacillin Sod/ Tazobactam Sod 3.375 gm/Sodium Chloride 110 ml @ 27.5 mls/hr Q8HR IVPB 09/09/18 14:00 09/16/18 13:59 09/11/18 15:13 Valproic Acid (Depakene) 1,500 mg EVERY 12 HOURS GT 09/09/18 09:00 10/09/18 08:59 09/11/18 09:02 Vancomycin HCl (Vanco rx to dose) 1 ea DAILY PRN MISC Per rx protocol 09/09/18 11:45 10/09/18 11:44 Vancomycin HCl 1 gm/Dextrose 275 ml @ 183.708 mls/hr Q8H IVPB 09/09/18 13:00 09/14/18 12:59 09/11/18 13:13 Jl Ash MD Sep 11, 2018 16:05
--- NOTE | 2018-09-11 19:05 | NUR ---
RESPIRATORY NOTE: PT RECEIVED STABLE ON AC 16,600,40%,+5. ALARMS ON AND AUDIBLE. VENT PLUGGED INTO RED OUTLET. VENT CIRCUIT AND SX TUBING SECURE AND OUT OF THE WAY. PT HAS INCREASED RR AND INCREASED HR. PASHA MCKINNEY NOTIFIED. WILL CONTINUE TO MONITOR.
--- NOTE | 2018-09-11 19:10 | NUR ---
HAND-OFF: Report given to .FAYE PAK.
--- NOTE | 2018-09-11 19:25 | NUR ---
NURSE NOTES: Received patient from PASHA BROWN. Patient is obtunded with eyes opened making no contact. On trach Portex 9 to vent with settings of AC:16, TV:600 FiO2:50% PEEP:5 and O2 saturating at 100%. Condom catheter is intact and draining, cooling blanket is on, seizure precautions are initiated. Will continue plan of care.
[2018-09-11 20:00] VITALS: BP 142/88
[2018-09-11] MEDS: Acetaminophen 650mg/20.3ml GT PRN (20:53)
--- NOTE | 2018-09-11 21:36 | NUR ---
NURSE NOTES: Patient has a temperature of 101.3F. Tylenol 650mg PRN given via GTube. Cooling blanket on, covers are off of patient and ice packs are placed on patient. Temperature lowered to 100.9F. Will continue to monitor
[2018-09-12] VITALS: BP 111/70
[2018-09-12] MEDS: NovoLOG Insulin Flexpen SUBQ SCH ×5 (00:02→23:41)
[2018-09-12 04:00] VITALS: BP 122/83
[2018-09-12] MEDS: Vancomycin 1gm/D5W 275ml IVPB SCH ×6 (04:30→21:04)
--- NOTE | 2018-09-12 05:00 | NUR ---
RESPIRATORY NOTE: PT. STABLE ON CMV WITH CURRENT ORDERS. SXN. PRN WITHOUT ADVERSE REACTION. VENT CIRCUIT SECURE AND OUT OF THE WAY.NO S/S OF RESPIRATORY DISTRESS NOTED AT THIS TIME.
[2018-09-12 05:56] LABS: ANION GAP 11 mmol/L (5-15); BLOOD UREA NITROGEN 18 mg/dL (7-18); CALCIUM 9.2 MG/DL (8.5-10.1); CARBON DIOXIDE 32 MMOL/L (21-32); CHLORIDE 93 MMOL/L (98-107); CREATININE 1.2 MG/DL (0.55-1.30); POTASSIUM 3.7 MMOL/L (3.5-5.1); SODIUM 136 MMOL/L (136-145)
[2018-09-12] MEDS: Piperacillin/Tazobactam 3.375 GM in NS 110 ML IVPB SCH (06:01)
[2018-09-12] MEDS: Acetaminophen 650mg/20.3ml GT PRN ×2 (07:02→21:05)
--- NOTE | 2018-09-12 07:20 | NUR ---
NURSE NOTES: Received report from Nkechi Bonds RN. Patient awake, nonverbal, unable to follow commands and make needs known. Trach to vent with settings of AC 16, TV 600, FiO2 40%, PEEP 5, saturating at 99%. GT feeding of Glucerna 1.2 running @ 55 cc/hr, 175 cc of residuals noted. Feeding held. Condom catheter in place, no urine noted at this time. Right hand 20g IV site infusing Zosyn @ 27.5 cc/hr, asymptomatic. Patient is febrile at this time, tylenol given by [facility] shift lead, cooling blanket on. Cooling measures in place. Bed locked in lowest position with padded side rails up x 3. All needs attended to. Will continue to monitor.
--- NOTE | 2018-09-12 07:35 | NUR ---
NURSE NOTES: Left message for Dr. Wakefield regarding patient's condition of the followin. Dark red urine output throughout shift/ Heparin held. 2. Heart rate reached the 160s. 3. AM rectal temperature is 102.5F, Tylenol was given and cooling measures in place. Endorsed to PASHA Fletcher.
[2018-09-12 08:00] VITALS: BP 85/55
[2018-09-12] MEDS: Ferrous Sulfate 300 MG/5 ML UDC GT SCH ×2 (08:43→18:35)
[2018-09-12] MEDS: Valproic Acid 250mg/5ml Liquid GT SCH ×2 (08:43→20:16)
[2018-09-12] MEDS: carBAMazepine 200mg tab GT SCH ×3 (08:44→21:04)
[2018-09-12] MEDS: levETIRAcetam 500mg/5ml Liquid GT SCH ×2 (08:44→20:16)
[2018-09-12] MEDS: Aspirin Baby 81mg GT SCH (08:44)
--- NOTE | 2018-09-12 08:55 | General Progress Note ---
Assessment/Plan Assessment/Plan IMPRESSION respiratory failure trach seizures fever leukocytosis possible sepsis hematuria PLAN ID evaluation noted Iv antibiotics respiratory care oxygen seizure meds monitor dc heparin ativan sliding scale not stable for dc yet impression, plan, and exam edited and reviewed in detail care discussed with RN Subjective Allergies: Coded Allergies: No Known Allergies (Unverified , 07/21/16) Subjective care noted has hematuria Objective Last 24 Hour Vital Signs Date Time Temp Pulse Resp B/P (MAP) Pulse Ox O2 Delivery O2 Flow Rate FiO2 09/12/18 08:00 102.3 116 16 85/55 100 Mechanical Ventilator 40 09/12/18 07:32 102.3 09/12/18 07:00 123 16 40 09/12/18 05:00 132 22 40 09/12/18 04:00 98.8 124 28 122/83 100 09/12/18 04:00 Mechanical Ventilator 09/12/18 04:00 40 09/12/18 03:23 122 09/12/18 03:15 117 20 40 09/12/18 01:14 108 16 40 09/12/18 00:00 98.4 108 16 111/70 100 09/12/18 00:00 Mechanical Ventilator 09/11/18 23:20 106 09/11/18 23:10 103 16 40 09/11/18 21:25 144 35 40 09/11/18 20:00 100.7 133 16 142/88 100 09/11/18 20:00 40 09/11/18 20:00 Mechanical Ventilator 09/11/18 19:42 148 09/11/18 19:10 130 25 40 09/11/18 17:07 121 18 40 09/11/18 16:00 99.0 115 18 134/59 100 09/11/18 16:00 Mechanical Ventilator 09/11/18 16:00 120 09/11/18 16:00 50 09/11/18 14:31 101 16 40 09/11/18 12:51 89 20 40 09/11/18 12:00 50 09/11/18 12:00 Mechanical Ventilator 09/11/18 12:00 98.1 94 18 110/69 100 09/11/18 11:19 96 18 40 09/11/18 09:22 109 23 40 Intake and Output 09/11/18 09/12/18 18:59 06:59 Intake Total 1210.496 ml 1156.854 ml Output Total 500 ml 300 ml Balance 710.496 ml 856.854 ml Intake Free Water 210 ml IV Total 460.496 ml 476.854 ml Tube Feeding 540 ml 580 ml Other 100 ml Output Urine Total 500 ml 300 ml Laboratory Tests 09/12/18 03:35: Sodium Level 136, Potassium Level 3.7, Chloride Level 93L, Carbon Dioxide Level 32, Anion Gap 11, Blood Urea Nitrogen 18, Creatinine 1.2, Estimat Glomerular Filtration Rate > 60, Glucose Level 89, Calcium Level 9.2 Height (Feet): 5 Height (Inches): 8.00 Weight (Pounds): 220 Objective WDWN NAD trach clear breath sounds bilaterally without rhonchi or wheeze [id number] without MRG NABS nontender no HSM no CC contracted poor LOC Gt Andres Wakefield MD Sep 12, 2018 08:55
--- NOTE | 2018-09-12 09:30 | NUR ---
RADIOLOGY DEPT CHEST X-RAY DONE.-P.DYE
--- NOTE | 2018-09-12 10:55 | Infectious Diseases Prog Note ---
Assessment/Plan Assessment/Plan A; Sepsis Xenia UTI ? pneumonia VDRF s/p CVA P: Change Zosyn to Meropenem Continue Vancomycin & Fluconazole repeat CXR Subjective ROS Limited/Unobtainable: Yes Constitutional: Reports: fever, other - ybht=890.3 Allergies: Coded Allergies: No Known Allergies (Unverified , 07/21/16) Objective Vital Signs Last 24 Hour Vital Signs Date Time Temp Pulse Resp B/P (MAP) Pulse Ox O2 Delivery O2 Flow Rate FiO2 09/12/18 09:20 112 22 40 09/12/18 08:00 102.3 116 16 85/55 100 Mechanical Ventilator 40 09/12/18 07:32 102.3 09/12/18 07:00 123 16 40 09/12/18 05:00 132 22 40 09/12/18 04:00 98.8 124 28 122/83 100 09/12/18 04:00 Mechanical Ventilator 09/12/18 04:00 40 09/12/18 03:23 122 09/12/18 03:15 117 20 40 09/12/18 01:14 108 16 40 09/12/18 00:00 98.4 108 16 111/70 100 09/12/18 00:00 Mechanical Ventilator 09/11/18 23:20 106 09/11/18 23:10 103 16 40 09/11/18 21:25 144 35 40 09/11/18 20:00 100.7 133 16 142/88 100 09/11/18 20:00 40 09/11/18 20:00 Mechanical Ventilator 09/11/18 19:42 148 09/11/18 19:10 130 25 40 09/11/18 17:07 121 18 40 09/11/18 16:00 99.0 115 18 134/59 100 09/11/18 16:00 Mechanical Ventilator 09/11/18 16:00 120 09/11/18 16:00 50 09/11/18 14:31 101 16 40 09/11/18 12:51 89 20 40 09/11/18 12:00 50 09/11/18 12:00 Mechanical Ventilator 09/11/18 12:00 98.1 94 18 110/69 100 09/11/18 11:19 96 18 40 Height (Feet): 5 Height (Inches): 8.00 Weight (Pounds): 220 HEENT: status post trach Respiratory/Chest: lungs clear, other - on ventilator Cardiovascular: tachycardia Abdomen: soft, non tender, other - GT feeding Extremities: no edema Neurologic/Psychiatric: unresponsiveness Microbiology Date/Time Source Procedure Growth Status 09/10/18 13:00 Sputum Gram Stain - Final Resulted 09/10/18 13:00 Sputum Culture - Preliminary Gram Negative Bacillus 1 Gram Negative Bacillus 2 Resulted 09/10/18 06:00 Nasal Nares MRSA Culture - Final NO METHICILLIN RESISTANT STAPH AUREUS... Complete 09/10/18 06:00 Rectum VRE Culture - Final Enterococcus Faecalis - Vre Resulted 09/10/18 06:00 Rectum Pending Resulted Laboratory Tests Test 09/12/18 03:35 Sodium Level 136 MMOL/L (136-145) Potassium Level 3.7 MMOL/L (3.5-5.1) Chloride Level 93 MMOL/L (98-107) L Carbon Dioxide Level 32 MMOL/L (21-32) Anion Gap 11 mmol/L (5-15) Blood Urea Nitrogen 18 mg/dL (7-18) Creatinine 1.2 MG/DL (0.55-1.30) Estimat Glomerular Filtration Rate > 60 mL/min (>60) Glucose Level 89 MG/DL (74-106) Calcium Level 9.2 MG/DL (8.5-10.1) Current Medications Medications (Trade) Dose Ordered Sig/Guillermo Route PRN Reason Start Time Stop Time Status Last Admin Dose Admin Acetaminophen (Tylenol) 650 mg Q4H PRN GT Mild Pain/Temp > 100.5 09/10/18 13:03 10/10/18 13:02 09/12/18 07:02 Acetaminophen/ Hydrocodone Bitart ([place] 5/325) 1 tab Q4H PRN ORAL PAIN 4-10 09/08/18 20:15 09/15/18 20:14 Aspirin (ASA) 81 mg DAILY GT 09/11/18 09:00 10/11/18 08:59 09/11/18 09:00 Bisacodyl (Dulcolax) 10 mg DAILYPRN PRN RECTAL Constipation 09/08/18 20:15 10/08/18 20:14 Carbamazepine (TEGretol) 400 mg TID GT 09/09/18 09:00 10/09/18 08:59 09/12/18 08:44 Dextrose (Dextrose 50%) 25 ml Q30M PRN IV Hypoglycemia 09/09/18 14:15 10/09/18 14:14 Dextrose (Dextrose 50%) 50 ml Q30M PRN IV Hypoglycemia 09/09/18 14:15 10/09/18 14:14 Ferrous Sulfate (Feosol) 325 mg BID GT 09/09/18 09:00 10/09/18 08:59 09/12/18 08:43 Fluconazole (Diflucan) 100 mg Q24H GT 09/10/18 11:00 09/17/18 10:59 09/11/18 11:14 Insulin Aspart (NovoLOG) Q6HR SUBQ 09/09/18 18:00 10/09/18 17:59 09/12/18 06:02 Levetiracetam (Keppra) 500 mg Q12HR GT 09/08/18 21:00 10/08/18 20:59 09/12/18 08:44 Lorazepam (Ativan 2mg/ml 1ml) 1 mg Q2HR PRN IV For Seizures 09/08/18 20:00 09/15/18 19:59 09/11/18 21:14 Magnesium Hydroxide (Mom) 30 ml DAILYPRN PRN GT Constipation 09/08/18 20:15 10/08/18 20:14 Metoclopramide HCl (Reglan) 10 mg Q6H PRN IVP Nausea & Vomiting 09/09/18 11:45 10/09/18 11:44 09/10/18 00:54 Midodrine (Pro-Amatine) 2.5 mg THREE TIMES A DAY GT 09/09/18 09:00 10/09/18 08:59 09/12/18 08:44 Piperacillin Sod/ Tazobactam Sod 3.375 gm/Sodium Chloride 110 ml @ 27.5 mls/hr Q8HR IVPB 09/09/18 14:00 09/16/18 13:59 09/12/18 06:01 Valproic Acid (Depakene) 1,500 mg EVERY 12 HOURS GT 09/09/18 09:00 10/09/18 08:59 09/12/18 08:43 Vancomycin HCl (Vanco rx to dose) 1 ea DAILY PRN MISC Per rx protocol 09/09/18 11:45 10/09/18 11:44 Vancomycin HCl 1 gm/Dextrose 275 ml @ 183.708 mls/hr Q8H IVPB 09/09/18 13:00 09/14/18 12:59 09/12/18 04:30 John Elizalde MD Sep 12, 2018 10:54
[2018-09-12] MEDS: Fluconazole 100mg tab GT SCH (10:58)
[2018-09-12 12:00] VITALS: BP 138/64
--- NOTE | 2018-09-12 12:10 | Diagnostic Imaging Report ---
Indication: Dyspnea Technique: One view of the chest Comparison: 09/08/2018 Findings: Stable satisfactory position of endotracheal tube. There is minimal retrocardiac consolidation again demonstrated, unchanged. Lungs and pleural spaces otherwise remain clear. Normal heart size. No significant change Impression: Unchanged, over 4 days, findings as above.
[2018-09-12] MEDS: Meropenem 1 GM in NS 55 ML IVPB SCH ×2 (12:11→20:16)
--- NOTE | 2018-09-12 12:13 | NUR ---
RD ASSESSMENT & RECOMMENDATIONS SEE CARE ACTIVITY FOR COMPLETE ASSESSMENT DAILY ESTIMATED NEEDS: Needs based on Underwt, sepsis, wound, TF TRAIN DIRECTOR (63kg) 27-32 kcals/kg 7291-9982 total kcals 1.25-2 g protein/kg 79-126 g total protein 27-32ml/kcal mL/kg 0741-5168 total fluid mLs NUTRITION DIAGNOSIS: 1) Increased kcal, prot, needs R/T sepsis, wound healing,underweight status as evidenced by pt w/ elev WBC, febrile w/ temp 102.3, multiple DTI wounds, refer to WC eval, and pt w/ BMI 17.0, 69% IBW. 2) Difficulty swallowing R/T resp status as evidenced by pt vent dependent via trach w/PEG, TF held at this time due to elev residuals. CURRENT TF:Glucerna 1.2 @70ml x20 hrs- HELD AT THIS TIME FOR ELEV RESIDUALS ENTERAL NUTRITION RECOMMENDATIONS: Glucerna 1.5 @ 50ml/hr x 24 hrs to provide 1200ml, 1800kcal, 99g prot, 911ml free water * Rec TF change to Glucerna 1.5 * Initiate Glucerna 1.5 @ 20ml/hr x 6 hrs, advance 5-10ml q 4-6 hrs as tolerated to goal rate. * HOB >30 degrees/H20 flush per MD ADDITIONAL RECOMMENDATIONS: 1) PER SNF (09/07/18) pt is: 6'4" tall and 139# (63.2kg) 2) Wound care: Marcelino 1 pkt BID + Vit C 500mg QD 3) Monitor lytes, replete as needed 4) Weekly calibrated bed scale wts 5) Consider long acting insuling for improved glycemic control 6) Consider routine reglan (vs prn) for improved TF tolerance 7) Consider daily bowel regimen
--- NOTE | 2018-09-12 12:16 | NUR ---
NURSE NOTES: Patient's BS noted at 413. Novolog given per protocol. Dr. Wakefield notified. No new orders received at this time. Will continue to monitor.
[2018-09-12 16:00] VITALS: BP 106/59
--- NOTE | 2018-09-12 19:15 | NUR ---
HAND-OFF: Report given to Deandre Mcguire RN. 25 cc of D50 given via IV d/t BS of 65 from patient's tube feeding being held for residual.
--- NOTE | 2018-09-12 19:20 | NUR ---
NURSE NOTES: Received report from Justine RN, pt. in bed obtunded, no sign or symptoms of acute cardiac or respiratory symptoms noted, bed in lowest position and call light within easy reach, bed alarm on, side rails up x's3 and safety brakes engaged, cardiac monitoring on, pt. appears to be tolerating current vent settings well- AC 16, TV 600, Fio2 @40% and peep of 5- no respiratory distress noted, pt. has Glucerna 1.5 running Via G tube at 20cc/hr- no residual noted- Goal is 50cc/hr. Condom cath intact and draining to gravity, dressings dry and intact, comfort measures provided, Rt. hand 22G- IV intact and patent, safety measures continued, will continue with plan of care.
[2018-09-12 20:00] VITALS: BP 118/66
--- NOTE | 2018-09-12 20:22 | NUR ---
RESPIRATORY NOTE: PT. RECEIVED STABLE ON CMV WITH CURRENT SETTING. VENT. CIRCUIT AND S TUBING SECURE AND OUT OF THE WAY. NO S/S OF RESPIRATORY DISTRESS NOTED AT THIS TIME. WILL CONTINUE TO MONITOR.
--- NOTE | 2018-09-12 20:25 | NUR ---
NURSE NOTES: BS now 178. Tube feeding running @ 20 cc/hr.
[2018-09-13] VITALS: BP 122/58
[2018-09-13] MEDS: Meropenem 1 GM in NS 55 ML IVPB SCH (03:55)
[2018-09-13 04:00] VITALS: BP 101/69
[2018-09-13] MEDS: carBAMazepine 200mg tab GT SCH ×4 (04:33→21:00)
[2018-09-13] MEDS: Vancomycin 1gm/D5W 275ml IVPB SCH ×2 (04:33)
[2018-09-13] MEDS: NovoLOG Insulin Flexpen SUBQ SCH ×5 (04:34→23:35)
--- NOTE | 2018-09-13 04:47 | NUR ---
RESPIRATORY NOTE: PT. REMAINED STABLE ON CMV WITH CURRENT SETTINGS. SXN'S PRN WITH NO ADVERSE REACTION. VENT CIRCUIT AND SX TUBING SECURE AND OUT OF THE WAY. NO S/S OF RESPIRATORY DISTRESS NOTED AT THIS TIME.
[2018-09-13 06:37] LABS: APPEARANCE,URINE CLOUDY; BILIRUBIN, URINE NEGATIVE (NEGATIVE); GLUCOSE, URINE (UA) 1+ (NEGATIVE); KETONES,URINE 1+ (NEGATIVE); LEUKOCYTE ESTERASE ,URINE 3+ (NEGATIVE); NITRITE,URINE NEGATIVE (NEGATIVE); PH,URINE 5 (4.5-8.0); PROTEIN,URINE 4+ (NEGATIVE); UROBILINOGEN,URINE NORMAL MG/DL (0.0-1.0)
[2018-09-13 06:46] LABS: COLOR,URINE YELLOW
--- NOTE | 2018-09-13 07:16 | NUR ---
HAND-OFF: Report given to Justine Price/ Luan Rn- pt. remains stable and no signs of distress noted.
--- NOTE | 2018-09-13 07:29 | NUR ---
NURSE NOTES: Received report form PASHA Mitchell. Patient is noted resting in bed, in stable condition. No s/sx of SOB, breathing is even and unlabored, vent settings noted. Observed no presence of pain or discomfort at this time. Temperature rectal probe noted in place. Bed is in lowest position, brakes engaged. Call light is kept within easy reach. Will continue to monitor patient.
[2018-09-13 08:00] VITALS: BP 90/53
[2018-09-13] MEDS: Aspirin Baby 81mg GT SCH (08:13)
[2018-09-13] MEDS: levETIRAcetam 500mg/5ml Liquid GT SCH ×2 (08:13→20:59)
[2018-09-13] MEDS: Ferrous Sulfate 300 MG/5 ML UDC GT SCH ×2 (08:13→17:43)
[2018-09-13] MEDS: Valproic Acid 250mg/5ml Liquid GT SCH ×2 (08:14→20:59)
--- NOTE | 2018-09-13 08:22 | General Progress Note ---
Assessment/Plan Assessment/Plan IMPRESSION respiratory failure trach seizures fever leukocytosis possible sepsis hematuria PLAN ID evaluation appreciated Iv antibiotics respiratory care oxygen seizure meds monitor monitor off heparin ativan sliding scale not stable for dc yet impression, plan, and exam edited and reviewed in detail care discussed with RN Subjective Allergies: Coded Allergies: No Known Allergies (Unverified , 07/21/16) Subjective care noted cultures noted ID noted Objective Last 24 Hour Vital Signs Date Time Temp Pulse Resp B/P (MAP) Pulse Ox O2 Delivery O2 Flow Rate FiO2 09/13/18 07:10 80 17 40 09/13/18 04:47 78 21 40 09/13/18 04:00 98.7 88 24 101/69 100 Mechanical Ventilator 40 09/13/18 04:00 81 09/13/18 04:00 Mechanical Ventilator 09/13/18 04:00 40 09/13/18 03:02 77 17 40 09/13/18 00:50 66 17 40 09/13/18 00:00 107 09/13/18 00:00 99.0 92 22 122/58 100 Mechanical Ventilator 40 09/13/18 00:00 Mechanical Ventilator 09/12/18 23:12 80 16 40 09/12/18 21:35 98.4 09/12/18 21:35 98.4 09/12/18 21:25 113 20 40 09/12/18 20:22 111 21 40 09/12/18 20:00 100.9 115 22 118/66 100 Mechanical Ventilator 40 09/12/18 20:00 40 09/12/18 20:00 Mechanical Ventilator 09/12/18 20:00 104 09/12/18 20:00 40 09/12/18 17:21 117 18 40 09/12/18 16:00 40 09/12/18 16:00 99 09/12/18 16:00 Mechanical Ventilator 09/12/18 16:00 99.5 113 22 106/59 100 Mechanical Ventilator 40 09/12/18 15:21 107 33 40 09/12/18 12:27 138 30 40 09/12/18 12:00 40 09/12/18 12:00 Mechanical Ventilator 09/12/18 12:00 143 09/12/18 12:00 98.3 125 22 138/64 100 Mechanical Ventilator 40 09/12/18 09:20 112 22 40 Intake and Output 09/12/18 09/13/18 19:00 07:00 Intake Total 697.500 ml 1011.1 ml Output Total 750 ml 1000 ml Balance -52.500 ml 11.1 ml Intake Free Water 50 ml IV Total 412.500 ml 661.1 ml Tube Feeding 85 ml 300 ml Other 200 ml Output Urine Total 750 ml 1000 ml # Bowel Movements 1 Laboratory Tests 09/13/18 05:00: Urine Color Yellow, Urine Appearance Cloudy, Urine pH 5, Urine Specific [place] 1.010, Urine Protein 4+H, Urine Glucose (UA) 1+H, Urine Ketones 1+H, Urine Blood 5+H, Urine Nitrite Negative, Urine Bilirubin Negative, Urine Urobilinogen Normal, Urine Leukocyte Esterase 3+H, Urine RBC 60-80H, Urine WBC 30-40H, Urine Squamous Epithelial Cells None, Urine Bacteria ManyH Height (Feet): 5 Height (Inches): 8.00 Weight (Pounds): 220 Objective WDWN NAD trach clear breath sounds bilaterally without rhonchi or wheeze [id number] without MRG NABS nontender no HSM no CC contracted poor LOC Gt Andres Wakefield MD Sep 13, 2018 08:22
[2018-09-13] MEDS: Fluconazole 100mg tab GT SCH (10:11)
--- NOTE | 2018-09-13 11:09 | Infectious Diseases Prog Note ---
Assessment/Plan Assessment/Plan antibiotics : vancomycin iv, meropenem, fluconazole A 1. pseudomonas pneumonia 2. fungal UTI 3. respiratory failure 4. CVA 5. seizures P 1. d/c vancomycin iv, meropenem 2. start inhaled amikacin 3. continue fluconazole 3 more days Subjective ROS Limited/Unobtainable: Yes Allergies: Coded Allergies: No Known Allergies (Unverified , 07/21/16) Objective Vital Signs Last 24 Hour Vital Signs Date Time Temp Pulse Resp B/P (MAP) Pulse Ox O2 Delivery O2 Flow Rate FiO2 09/13/18 09:00 92 18 40 09/13/18 08:00 Mechanical Ventilator 09/13/18 08:00 89 09/13/18 08:00 98.0 83 24 90/53 100 Mechanical Ventilator 40 09/13/18 08:00 40 09/13/18 07:10 80 17 40 09/13/18 04:47 78 21 40 09/13/18 04:00 98.7 88 24 101/69 100 Mechanical Ventilator 40 09/13/18 04:00 81 09/13/18 04:00 Mechanical Ventilator 09/13/18 04:00 40 09/13/18 03:02 77 17 40 09/13/18 00:50 66 17 40 09/13/18 00:00 107 09/13/18 00:00 99.0 92 22 122/58 100 Mechanical Ventilator 40 09/13/18 00:00 Mechanical Ventilator 09/12/18 23:12 80 16 40 09/12/18 21:35 98.4 09/12/18 21:35 98.4 09/12/18 21:25 113 20 40 09/12/18 20:22 111 21 40 09/12/18 20:00 100.9 115 22 118/66 100 Mechanical Ventilator 40 09/12/18 20:00 40 09/12/18 20:00 Mechanical Ventilator 09/12/18 20:00 104 09/12/18 20:00 40 09/12/18 17:21 117 18 40 09/12/18 16:00 40 09/12/18 16:00 99 09/12/18 16:00 Mechanical Ventilator 09/12/18 16:00 99.5 113 22 106/59 100 Mechanical Ventilator 40 09/12/18 15:21 107 33 40 09/12/18 12:27 138 30 40 09/12/18 12:00 40 09/12/18 12:00 Mechanical Ventilator 09/12/18 12:00 143 09/12/18 12:00 98.3 125 22 138/64 100 Mechanical Ventilator 40 Height (Feet): 5 Height (Inches): 8.00 Weight (Pounds): 220 HEENT: status post trach Respiratory/Chest: lungs clear Cardiovascular: normal rate, regular rhythm, no gallop/murmur Abdomen: soft, non tender, other - GT Extremities: no edema Microbiology Date/Time Source Procedure Growth Status 09/10/18 13:00 Sputum Gram Stain - Final Resulted 09/10/18 13:00 Sputum Culture - Preliminary Pseudomonas Aeruginosa Pseudomonas Aeruginosa#2 Resulted Laboratory Tests Test 09/13/18 05:00 Urine Color Yellow Urine Appearance Cloudy Urine pH 5 (4.5-8.0) Urine Specific [place] 1.010 (1.005-1.035) Urine Protein 4+ (NEGATIVE) H Urine Glucose (UA) 1+ (NEGATIVE) H Urine Ketones 1+ (NEGATIVE) H Urine Blood 5+ (NEGATIVE) H Urine Nitrite Negative (NEGATIVE) Urine Bilirubin Negative (NEGATIVE) Urine Urobilinogen Normal MG/DL (0.0-1.0) Urine Leukocyte Esterase 3+ (NEGATIVE) H Urine RBC 60-80 /HPF (0 - 0) H Urine WBC 30-40 /HPF (0 - 0) H Urine Squamous Epithelial Cells None /LPF (NONE/OCC) Urine Bacteria Many /HPF (NONE) H Current Medications Medications (Trade) Dose Ordered Sig/Guillermo Route PRN Reason Start Time Stop Time Status Last Admin Dose Admin Acetaminophen (Tylenol) 650 mg Q4H PRN GT Mild Pain/Temp > 100.5 09/10/18 13:03 10/10/18 13:02 09/12/18 21:05 Acetaminophen/ Hydrocodone Bitart ([place] 5/325) 1 tab Q4H PRN ORAL PAIN 4-10 09/08/18 20:15 09/15/18 20:14 Aspirin (ASA) 81 mg DAILY GT 09/11/18 09:00 10/11/18 08:59 09/13/18 08:13 Bisacodyl (Dulcolax) 10 mg DAILYPRN PRN RECTAL Constipation 09/08/18 20:15 10/08/18 20:14 Carbamazepine (TEGretol) 400 mg Q8HR GT 09/12/18 15:00 10/09/18 08:59 09/13/18 05:00 Dextrose (Dextrose 50%) 25 ml Q30M PRN IV Hypoglycemia 09/09/18 14:15 10/09/18 14:14 09/12/18 18:42 Dextrose (Dextrose 50%) 50 ml Q30M PRN IV Hypoglycemia 09/09/18 14:15 10/09/18 14:14 Ferrous Sulfate (Feosol) 325 mg BID GT 09/09/18 09:00 10/09/18 08:59 09/13/18 08:13 Fluconazole (Diflucan) 100 mg Q24H GT 09/10/18 11:00 09/17/18 10:59 09/13/18 10:11 Insulin Aspart (NovoLOG) Q6HR SUBQ 09/09/18 18:00 10/09/18 17:59 09/13/18 05:00 Levetiracetam (Keppra) 500 mg Q12HR GT 09/08/18 21:00 10/08/18 20:59 09/13/18 08:13 Lorazepam (Ativan 2mg/ml 1ml) 1 mg Q2HR PRN IV For Seizures 09/08/18 20:00 09/15/18 19:59 09/11/18 21:14 Magnesium Hydroxide (Mom) 30 ml DAILYPRN PRN GT Constipation 09/08/18 20:15 10/08/18 20:14 Meropenem 1 gm/ Sodium Chloride 55 ml @ 110 mls/hr Q8H IVPB 09/12/18 12:00 09/17/18 11:59 09/13/18 03:55 Metoclopramide HCl (Reglan) 10 mg Q6H PRN IVP Nausea & Vomiting 09/09/18 11:45 10/09/18 11:44 09/10/18 00:54 Midodrine (Pro-Amatine) 2.5 mg THREE TIMES A DAY GT 09/09/18 09:00 10/09/18 08:59 09/13/18 08:13 Valproic Acid (Depakene) 1,500 mg EVERY 12 HOURS GT 09/09/18 09:00 10/09/18 08:59 09/13/18 08:14 Vancomycin HCl (Vanco rx to dose) 1 ea DAILY PRN MISC Per rx protocol 09/09/18 11:45 10/09/18 11:44 Vancomycin HCl 1 gm/Dextrose 275 ml @ 183.708 mls/hr Q8H IVPB 09/09/18 13:00 09/14/18 12:59 09/13/18 04:33 Tracie Isaac MD Sep 13, 2018 11:09
--- NOTE | 2018-09-13 11:10 | NUR ---
*-* INSURANCE *-* ALL CLINICLAS HAVE BEEN FAXED TO: [facility]:RACHEL F:[phone] P:[phone]
--- NOTE | 2018-09-13 11:58 | NUR ---
NURSE NOTES: Patient noted with blood glucose level 439. SSI given per protocol. Dr. Wakefield notified. Patient will stay on current sliding scale. Will continue to monitor.
[2018-09-13 12:00] VITALS: BP 105/61
[2018-09-13] MEDS ORDERED: Amikacin for Inhalation 2ML INH SCH (12:00)
[2018-09-13 16:00] VITALS: BP 111/69
--- NOTE | 2018-09-13 19:30 | NUR ---
NURSE NOTES: Received report from Luan RN, pt. in bed obtunded, no sign or symptoms of acute cardiac or respiratory symptoms noted, bed in lowest position and call light within easy reach, bed alarm on, side rails up x's3 and safety brakes engaged, cardiac monitoring on, pt. appears to be tolerating current vent settings well- AC 16, TV 600, Fio2 @40% and peep of 5- no respiratory distress noted, pt. has Glucerna 1.5 running Via G tube at 15cc/hr- 70cc for residual noted- Goal is 50cc/hr. Condom cath intact and draining to gravity, dressings dry and intact, comfort measures provided, Rt. hand 22G- IV intact and patent-TKO, safety measures continued, will continue with plan of care. Addendum: 09/13/18 at 2337 by JB SRINIVASAN RN RN Side rails padded for seizure precautions.
--- NOTE | 2018-09-13 19:30 | NUR ---
HAND-OFF: Report given to PASHA Mitchell.
--- NOTE | 2018-09-13 19:55 | NUR ---
RESPIRATORY NOTE: Received pt. on 840 vent. Vent settings are: A/C rate of 16, Vt 600, FI02 40%,PEEP +5. No respiratory distress noted, pt. Sp02 @ 100%. Ambu bag @ BS. Vent plugged on red outlet. Will continue to monitor pt.
[2018-09-13 20:00] VITALS: BP 124/64
--- NOTE | 2018-09-13 20:42 | NUR ---
CASE MANAGEMENT: REVIEW SI: SEPSIS . SEIZURE . RESPIRATORY FAILURE T 97.9 HR 104 RR 16 BP 111/69 SAT 100% MECH VENT FIO2 40 IS: AMIKACIN INH Q12HR TEGRETOL GT Q8HR ASA GT QD DIFLUCAN GT Q24HR KEPPRA GT Q12HR MIDODRINE GT TID DEPAKENE GT Q12HR STEP DOWN UNIT STATUS DCP: PATIENT IS FROM [facility]
[2018-09-13] MEDS: Amikacin for Inhalation 2ML INH SCH (22:30)
[2018-09-14] VITALS: BP 100/60
[2018-09-14 04:00] VITALS: BP 125/62
[2018-09-14] MEDS: carBAMazepine 200mg tab GT SCH ×3 (05:18→22:25)
[2018-09-14] MEDS: NovoLOG Insulin Flexpen SUBQ SCH ×3 (05:19→17:13)
--- NOTE | 2018-09-14 06:55 | NUR ---
RESPIRATORY NOTE:Received pt on current vent settings. pt has moderate secretions. pt has no s/s of distress. Vent alarms are on and audible. Will cont. to monitor pt status.
--- NOTE | 2018-09-14 06:58 | NUR ---
HAND-OFF: Report given to Luan RN, pt. remains stable and no signs of distress noted.
--- NOTE | 2018-09-14 07:15 | NUR ---
NURSE NOTES: Received report from PASHA Mitchell. Patient is resting in bed in stable condition. No s/sx of SOB, breathing is even and unlabored. Observed no presence of pain or discomfort at this time. Bed is in lowest position, brakes engaged. Call light is kept within easy reach. Will continue to monitor patient.
[2018-09-14 08:00] VITALS: BP 102/63
[2018-09-14] MEDS: Aspirin Baby 81mg GT SCH (08:27)
[2018-09-14] MEDS: levETIRAcetam 500mg/5ml Liquid GT SCH ×2 (08:28→20:53)
[2018-09-14] MEDS: Ferrous Sulfate 300 MG/5 ML UDC GT SCH (08:28)
[2018-09-14] MEDS: Valproic Acid 250mg/5ml Liquid GT SCH ×2 (08:28→20:54)
--- NOTE | 2018-09-14 09:00 | General Progress Note ---
Assessment/Plan Assessment/Plan IMPRESSION respiratory failure trach seizures fever leukocytosis possible sepsis hematuria PLAN ID evaluation appreciated Iv antibiotics respiratory care oxygen seizure meds monitor monitor off heparin ativan sliding scale repeat labs impression, plan, and exam edited and reviewed in detail care discussed with RN Subjective Allergies: Coded Allergies: No Known Allergies (Unverified , 07/21/16) Subjective care noted cultures noted ID noted Objective Last 24 Hour Vital Signs Date Time Temp Pulse Resp B/P (MAP) Pulse Ox O2 Delivery O2 Flow Rate FiO2 09/14/18 06:50 97 19 40 09/14/18 05:00 91 16 40 09/14/18 04:00 40 09/14/18 04:00 97.7 93 16 125/62 100 Mechanical Ventilator 40 09/14/18 04:00 Mechanical Ventilator 09/14/18 04:00 113 09/14/18 03:11 89 16 40 09/14/18 01:00 101 18 40 09/14/18 00:00 90 09/14/18 00:00 Mechanical Ventilator 09/14/18 00:00 40 09/14/18 00:00 98.1 94 16 100/60 100 Mechanical Ventilator 40 09/13/18 22:52 40 09/13/18 22:52 104 18 100 Mechanical Ventilator 40 09/13/18 22:31 100 18 40 09/13/18 22:30 100 18 100 Mechanical Ventilator 40 09/13/18 21:30 110 23 40 09/13/18 20:00 123 09/13/18 20:00 98.2 120 24 124/64 100 Mechanical Ventilator 40 09/13/18 20:00 40 09/13/18 20:00 Mechanical Ventilator 09/13/18 19:53 109 24 40 09/13/18 17:03 104 23 40 09/13/18 16:00 Mechanical Ventilator 09/13/18 16:00 117 09/13/18 16:00 40 09/13/18 16:00 97.9 105 21 111/69 100 Mechanical Ventilator 40 09/13/18 15:13 101 16 40 09/13/18 13:00 103 16 100 Mechanical Ventilator 15.0 40 09/13/18 13:00 40 09/13/18 12:58 104 16 40 09/13/18 12:00 98.1 98 19 105/61 100 Mechanical Ventilator 40 09/13/18 12:00 Mechanical Ventilator 09/13/18 12:00 40 09/13/18 12:00 98 09/13/18 11:10 88 18 40 09/13/18 09:00 92 18 40 Intake and Output 09/13/18 09/14/18 19:00 07:00 Intake Total 310 ml 240 ml Output Total 1000 ml 500 ml Balance -690 ml -260 ml Intake Free Water 100 ml 50 ml Tube Feeding 210 ml 190 ml Output Urine Total 1000 ml 500 ml # Bowel Movements 1 Height (Feet): 5 Height (Inches): 8.00 Weight (Pounds): 203 Objective WDWN NAD trach clear breath sounds bilaterally without rhonchi or wheeze [id number] without MRG NABS nontender no HSM no CC contracted poor LOC Gt Andres Wakefield MD Sep 14, 2018 08:59
[2018-09-14 09:46] LABS: HEMATOCRIT 21.6 % (42.0-52.0); HEMOGLOBIN 7.1 G/DL (14.2-18.0); MEAN CORPUSCULAR VOLUME 93 FL (80-99); PLATELET COUNT 301 K/UL (150-450); RED BLOOD COUNT 2.31 M/UL (4.70-6.10); RED CELL DISTRIBUTION WIDTH 12.7 % (11.6-14.8); WHITE BLOOD COUNT 11.8 K/UL (4.8-10.8)
[2018-09-14] MEDS: Amikacin for Inhalation 2ML INH SCH ×2 (09:54→23:06)
[2018-09-14] MEDS: Fluconazole 100mg tab GT SCH (10:03)
--- NOTE | 2018-09-14 10:09 | Infectious Diseases Prog Note ---
Assessment/Plan Assessment/Plan A; Sepsis Xenia UTI ? pneumonia VDRF s/p CVA P: Continue Amikacin inhaler Consider CT scan of abdomen & Pelvis if fever is not resolved Subjective ROS Limited/Unobtainable: Yes Constitutional: Reports: fever Allergies: Coded Allergies: No Known Allergies (Unverified , 07/21/16) Objective Vital Signs Last 24 Hour Vital Signs Date Time Temp Pulse Resp B/P (MAP) Pulse Ox O2 Delivery O2 Flow Rate FiO2 09/14/18 09:54 40 09/14/18 09:54 103 19 100 Mechanical Ventilator 15.0 40 09/14/18 09:30 101 19 40 09/14/18 08:00 Mechanical Ventilator 09/14/18 08:00 97.9 92 16 102/63 100 Mechanical Ventilator 40 09/14/18 08:00 40 09/14/18 06:50 97 19 40 09/14/18 05:00 91 16 40 09/14/18 04:00 40 09/14/18 04:00 97.7 93 16 125/62 100 Mechanical Ventilator 40 09/14/18 04:00 Mechanical Ventilator 09/14/18 04:00 113 09/14/18 03:11 89 16 40 09/14/18 01:00 101 18 40 09/14/18 00:00 90 09/14/18 00:00 Mechanical Ventilator 09/14/18 00:00 40 09/14/18 00:00 98.1 94 16 100/60 100 Mechanical Ventilator 40 09/13/18 22:52 40 09/13/18 22:52 104 18 100 Mechanical Ventilator 40 09/13/18 22:31 100 18 40 09/13/18 22:30 100 18 100 Mechanical Ventilator 40 09/13/18 21:30 110 23 40 09/13/18 20:00 123 09/13/18 20:00 98.2 120 24 124/64 100 Mechanical Ventilator 40 09/13/18 20:00 40 09/13/18 20:00 Mechanical Ventilator 09/13/18 19:53 109 24 40 09/13/18 17:03 104 23 40 09/13/18 16:00 Mechanical Ventilator 09/13/18 16:00 117 09/13/18 16:00 40 09/13/18 16:00 97.9 105 21 111/69 100 Mechanical Ventilator 40 2/12/19 15:13 101 16 40 09/13/18 13:00 103 16 100 Mechanical Ventilator 15.0 40 09/13/18 13:00 40 09/13/18 12:58 104 16 40 09/13/18 12:00 98.1 98 19 105/61 100 Mechanical Ventilator 40 09/13/18 12:00 Mechanical Ventilator 09/13/18 12:00 40 09/13/18 12:00 98 09/13/18 11:10 88 18 40 Height (Feet): 5 Height (Inches): 8.00 Weight (Pounds): 203 HEENT: status post trach Respiratory/Chest: lungs clear, other - on ventilator Cardiovascular: tachycardia Abdomen: soft, non tender, other - GT feeding Extremities: no edema Neurologic/Psychiatric: unresponsiveness Microbiology Date/Time Source Procedure Growth Status 09/13/18 05:00 Urine,Clean Catch Urine Culture - Preliminary Resulted Laboratory Tests Test 09/14/18 09:15 White Blood Count 11.8 K/UL (4.8-10.8) H Red Blood Count 2.31 M/UL (4.70-6.10) L Hemoglobin 7.1 G/DL (14.2-18.0) L Hematocrit 21.6 % (42.0-52.0) L Mean Corpuscular Volume 93 FL (80-99) Mean Corpuscular Hemoglobin 30.8 PG (27.0-31.0) Mean Corpuscular Hemoglobin Concent 32.9 G/DL (32.0-36.0) Red Cell Distribution Width 12.7 % (11.6-14.8) Platelet Count 301 K/UL (150-450) Mean Platelet Volume 6.1 FL (6.5-10.1) L Neutrophils (%) (Auto) % (45.0-75.0) Lymphocytes (%) (Auto) % (20.0-45.0) Monocytes (%) (Auto) % (1.0-10.0) Eosinophils (%) (Auto) % (0.0-3.0) Basophils (%) (Auto) % (0.0-2.0) Neutrophils % (Manual) Pending Lymphocytes % (Manual) Pending Platelet Estimate Pending Platelet Morphology Pending Current Medications Medications (Trade) Dose Ordered Sig/Guillermo Route PRN Reason Start Time Stop Time Status Last Admin Dose Admin Acetaminophen (Tylenol) 650 mg Q4H PRN GT Mild Pain/Temp > 100.5 09/10/18 13:03 10/10/18 13:02 09/12/18 21:05 Acetaminophen/ Hydrocodone Bitart ([place] 5/325) 1 tab Q4H PRN ORAL PAIN 4-10 09/08/18 20:15 09/15/18 20:14 Amikacin Sulfate (Amikin) 500 mg Q12HR@10,22 INH 09/13/18 22:00 09/20/18 21:59 09/14/18 09:54 Aspirin (ASA) 81 mg DAILY GT 09/11/18 09:00 10/11/18 08:59 09/14/18 08:27 Bisacodyl (Dulcolax) 10 mg DAILYPRN PRN RECTAL Constipation 09/08/18 20:15 10/08/18 20:14 Carbamazepine (TEGretol) 400 mg Q8HR GT 09/12/18 15:00 10/09/18 08:59 09/14/18 05:18 Dextrose (Dextrose 50%) 25 ml Q30M PRN IV Hypoglycemia 09/09/18 14:15 10/09/18 14:14 09/12/18 18:42 Dextrose (Dextrose 50%) 50 ml Q30M PRN IV Hypoglycemia 09/09/18 14:15 10/09/18 14:14 Ferrous Sulfate (Feosol) 325 mg BID GT 09/09/18 09:00 10/09/18 08:59 09/14/18 08:28 Fluconazole (Diflucan) 100 mg Q24H GT 09/10/18 11:00 09/17/18 10:59 09/14/18 10:03 Insulin Aspart (NovoLOG) Q6HR SUBQ 09/09/18 18:00 10/09/18 17:59 09/14/18 05:19 Levetiracetam (Keppra) 500 mg Q12HR GT 09/08/18 21:00 10/08/18 20:59 09/14/18 08:28 Lorazepam (Ativan 2mg/ml 1ml) 1 mg Q2HR PRN IV For Seizures 09/08/18 20:00 09/15/18 19:59 09/11/18 21:14 Magnesium Hydroxide (Mom) 30 ml DAILYPRN PRN GT Constipation 09/08/18 20:15 10/08/18 20:14 Metoclopramide HCl (Reglan) 10 mg Q6H PRN IVP Nausea & Vomiting 09/09/18 11:45 10/09/18 11:44 09/10/18 00:54 Midodrine (Pro-Amatine) 2.5 mg THREE TIMES A DAY GT 09/09/18 09:00 10/09/18 08:59 09/14/18 08:28 Valproic Acid (Depakene) 1,500 mg EVERY 12 HOURS GT 09/09/18 09:00 10/09/18 08:59 09/14/18 08:28 John Elizalde MD Sep 14, 2018 10:09
--- NOTE | 2018-09-14 10:42 | NUR ---
NURSE NOTES: Informed Dr. Wakefield that patient's hemoglobin level today is 7.1. MD acknowledged and ordered transfuse 2 units of PRBC. Noted.
[2018-09-14 12:00] VITALS: BP 93/54
--- NOTE | 2018-09-14 14:12 | NUR ---
*-* INSURANCE *-* UPDATED CLINICALS HAVE BEEN FAXED TO: [facility] EYAL:RACHEL F:[phone] P:[phone]
--- NOTE | 2018-09-14 14:29 | NUR ---
NURSE NOTES: WOUND CARE FOLLOW-UP NOTES:R scapula juan pink over historical scar .Cavilon Skin Barrier appplied and covered with Optifoam drsg. Non-blanching erythema over keloid scarring sacrum. Historical scarring L ischium that is pink centrally. R heel extending into plantar aspect DTPI -maroon in colour and fluctuant. L heel extending into plantar aspect, wound is maroon in colour and is fluctuant.Skin assessed under collar of trach and no areas of concern noted. Pt has an APM /LOWELL mattress overlay and observed properly positioned with pillows in bed with both heels off-loaded . No new skin concerns noted. Recommendations:Continue all current wound care orders as ordered.
[2018-09-14 14:55] LABS: % IRON SATURATION 28 % (15-50); IRON 33 ug/dL (50-175); TOTAL IRON BINDING CAPACITY 116 ug/dL (250-450)
[2018-09-14 15:07] LABS: FERRITIN 630 NG/ML (8-388)
[2018-09-14 16:00] VITALS: BP 100/66
--- NOTE | 2018-09-14 19:25 | NUR ---
HAND-OFF: Report given to PASHA Macedo.
--- NOTE | 2018-09-14 19:30 | NUR ---
NURSE NOTES: Received report from Kay Jennings RN. Patient is asleep in bed, obtunded. No s/s of acute distress noted. Sinus tach on monitoring coordinator. Trach-vent settings: [place] 9, AC 16, Vt 600, FiO2 24%, PEEP 5 and saturating well. Receiving Glucerna 1.5 @ 10 cc/hr, with goal of 50 cc/hr; tolerating well. Condom catheter in place and draining well to gravity. Right upper midline double lumen catheter, intact and patent; right hand 22g IV, intact and patent; left thumb 24g IV, intact and patent. Bed locked in lowest position with side rails up x3. Call light left within reach. Will continue to monitor. Addendum: 09/14/18 at 2001 by HERBERT LYLES RN Received report from Kay Jennings RN. Patient is asleep in bed, obtunded. No s/s of acute distress noted. Sinus tach on monitoring coordinator. Trach-vent settings: Portex 9, AC 16, Vt 600, FiO2 24%, PEEP 5 and saturating well. Receiving Glucerna 1.5 @ 10 cc/hr, with goal of 50 cc/hr; tolerating well. Condom catheter in place and draining well to gravity. RIGHT HAND 22g TKO, INTACT AND PATENT (NOT IN PLACE: Right upper midline double lumen catheter, right hand 22g IV, left thumb 24g IV) . Bed locked in lowest position with padded side rails up x3. Call light left within reach. Will continue to monitor.
[2018-09-14 20:00] VITALS: BP 114/54
[2018-09-14] MEDS: Iron Sucrose 100 MG in NS 55 ML IVPB SCH (20:54)
[2018-09-14] MEDS: Epoetin Alfa-EPBX (NON ESRD)10,000 unit/ml vial SUBQ SCH (20:55)
[2018-09-14] MEDS ORDERED: Iron Sucrose 100 MG in NS 55 ML IVPB SCH (21:00)
[2018-09-14] MEDS ORDERED: Epoetin Alfa-EPBX (NON ESRD) 2000 units/ml vial SUBQ SCH (21:00)
[2018-09-15] VITALS: BP 111/60
[2018-09-15] MEDS: NovoLOG Insulin Flexpen SUBQ SCH ×4 (00:34→18:30)
[2018-09-15] MEDS: Acetaminophen 650mg/20.3ml GT PRN ×2 (01:06→21:59)
[2018-09-15 04:00] VITALS: BP 102/60
[2018-09-15] MEDS: carBAMazepine 200mg tab GT SCH ×3 (06:07→21:59)
[2018-09-15 06:17] LABS: ANION GAP 9 mmol/L (5-15); BLOOD UREA NITROGEN 19 mg/dL (7-18); CALCIUM 9.2 MG/DL (8.5-10.1); CARBON DIOXIDE 31 MMOL/L (21-32); CHLORIDE 102 MMOL/L (98-107); SODIUM 142 MMOL/L (136-145)
[2018-09-15 06:24] LABS: POTASSIUM 2.5 MMOL/L (3.5-5.1)
--- NOTE | 2018-09-15 06:30 | NUR ---
NURSE NOTES: Left message for Dr. Ashu MD regarding critical value - potassium 2.5. Awaiting response.
--- NOTE | 2018-09-15 07:01 | NUR ---
NURSE NOTES: Received new orders from Dr. Ashu MD. Noted and carried out.
--- NOTE | 2018-09-15 07:15 | NUR ---
HAND-OFF: Report given to Kay Sullivan RN.
[2018-09-15 08:00] VITALS: BP 110/64
--- NOTE | 2018-09-15 08:19 | General Progress Note ---
Assessment/Plan Assessment/Plan IMPRESSION respiratory failure trach seizures fever leukocytosis possible sepsis hematuria anemia PLAN ID evaluation appreciated Iv antibiotics noted respiratory care oxygen seizure meds monitor mother refuses transfusion due to hinduism beliefs epogen ativan sliding scale repeat labs impression, plan, and exam edited and reviewed in detail care discussed with RN Subjective ROS Limited/Unobtainable: Yes Allergies: Coded Allergies: No Known Allergies (Unverified , 07/21/16) Subjective care noted cultures noted ID noted Objective Last 24 Hour Vital Signs Date Time Temp Pulse Resp B/P (MAP) Pulse Ox O2 Delivery O2 Flow Rate FiO2 09/15/18 07:06 80 19 40 09/15/18 05:08 99 18 40 09/15/18 04:00 98.6 80 16 102/60 100 Mechanical Ventilator 40 09/15/18 04:00 Mechanical Ventilator 09/15/18 04:00 40 09/15/18 03:20 90 09/15/18 02:50 93 18 40 09/15/18 01:36 98.1 09/15/18 00:30 118 18 40 09/15/18 00:00 40 09/15/18 00:00 40 09/15/18 00:00 100.2 102 16 111/60 100 Mechanical Ventilator 40 09/15/18 00:00 Mechanical Ventilator 09/15/18 00:00 127 09/14/18 23:17 108 20 100 Mechanical Ventilator 40 09/14/18 23:06 40 09/14/18 23:06 103 16 40 09/14/18 23:06 103 18 100 Mechanical Ventilator 40 09/14/18 21:02 112 18 40 09/14/18 20:00 102 09/14/18 20:00 Mechanical Ventilator 09/14/18 20:00 99.0 100 18 114/54 100 Mechanical Ventilator 40 09/14/18 19:24 104 16 40 09/14/18 16:50 102 20 40 09/14/18 16:00 Mechanical Ventilator 09/14/18 16:00 98.5 100 16 100/66 100 Mechanical Ventilator 40 09/14/18 16:00 40 09/14/18 16:00 106 09/14/18 15:35 101 20 40 09/14/18 13:30 106 20 40 09/14/18 12:00 98.2 99 16 93/54 100 Mechanical Ventilator 40 09/14/18 12:00 Mechanical Ventilator 09/14/18 12:00 40 09/14/18 12:00 130 09/14/18 11:09 99 20 40 09/14/18 10:04 102 18 100 Mechanical Ventilator 40 09/14/18 09:54 40 09/14/18 09:54 103 19 100 Mechanical Ventilator 15.0 40 09/14/18 09:30 101 19 40 Intake and Output 09/14/18 09/15/18 19:00 07:00 Intake Total 160 ml 360 ml Output Total 1500 ml Balance 160 ml -1140 ml Intake Free Water 120 ml IV Total 60 ml Tube Feeding 160 ml 180 ml Output Urine Total 1500 ml # Bowel Movements 2 Laboratory Tests 09/14/18 09:15: White Blood Count 11.8H, Red Blood Count 2.31L, Hemoglobin 7.1L, Hematocrit 21.6L, Mean Corpuscular Volume 93, Mean Corpuscular Hemoglobin 30.8, Mean Corpuscular Hemoglobin Concent 32.9, Red Cell Distribution Width 12.7, Platelet Count 301, Mean Platelet Volume 6.1L, Neutrophils (%) (Auto) , Lymphocytes (%) ( Auto) , Monocytes (%) (Auto) , Eosinophils (%) (Auto) , Basophils (%) (Auto) , Differential Total Cells Counted 100, Neutrophils % (Manual) 85H, Lymphocytes % (Manual) 6L, Monocytes % (Manual) 8, Eosinophils % (Manual) 1, Basophils % ( Manual) 0, Band Neutrophils 0, Platelet Estimate Adequate, Platelet Morphology Normal, Hypochromasia 1+, Iron Level 33L, Total Iron Binding Capacity 116L, Percent Iron Saturation 28, Unsaturated Iron Binding 83L, Ferritin 630H 09/15/18 04:50: Sodium Level 142, Potassium Level 2.5*L, Chloride Level 102, Carbon Dioxide Level 31, Anion Gap 9, Blood Urea Nitrogen 19H, Creatinine 1.0, Estimat Glomerular Filtration Rate > 60, Glucose Level 122H, Calcium Level 9.2 Height (Feet): 5 Height (Inches): 8.00 Weight (Pounds): 203 Objective WDWN NAD trach clear breath sounds bilaterally without rhonchi or wheeze [id number] without MRG NABS nontender no HSM no CC contracted poor LOC Gt Andres Wakefield MD Sep 15, 2018 08:19
[2018-09-15] MEDS: levETIRAcetam 500mg/5ml Liquid GT SCH ×2 (09:00→20:37)
[2018-09-15] MEDS: Aspirin Baby 81mg GT SCH (09:00)
[2018-09-15] MEDS: Valproic Acid 250mg/5ml Liquid GT SCH ×2 (09:00→20:37)
[2018-09-15] MEDS: Amikacin for Inhalation 2ML INH SCH ×2 (10:03→23:21)
--- NOTE | 2018-09-15 11:08 | Infectious Diseases Prog Note ---
Assessment/Plan Assessment/Plan A; Sepsis Xenia UTI ? pneumonia VDRF s/p CVA P: Continue Amikacin inhaler Consider CT scan of abdomen & Pelvis if fever is not resolved Subjective ROS Limited/Unobtainable: Yes Constitutional: Reports: fever, other - low grade last night Allergies: Coded Allergies: No Known Allergies (Unverified , 07/21/16) Objective Vital Signs Last 24 Hour Vital Signs Date Time Temp Pulse Resp B/P (MAP) Pulse Ox O2 Delivery O2 Flow Rate FiO2 09/15/18 10:50 109 19 40 09/15/18 10:13 117 17 100 Mechanical Ventilator 40 09/15/18 10:03 40 09/15/18 10:03 131 18 100 Mechanical Ventilator 40 09/15/18 08:46 89 18 40 09/15/18 08:00 40 09/15/18 08:00 99.0 88 18 110/64 98 Mechanical Ventilator 40 09/15/18 08:00 Mechanical Ventilator 09/15/18 07:06 80 19 40 09/15/18 05:08 99 18 40 09/15/18 04:00 98.6 80 16 102/60 100 Mechanical Ventilator 40 09/15/18 04:00 Mechanical Ventilator 09/15/18 04:00 40 09/15/18 03:20 90 09/15/18 02:50 93 18 40 09/15/18 01:36 98.1 09/15/18 00:30 118 18 40 09/15/18 00:00 40 09/15/18 00:00 40 09/15/18 00:00 100.2 102 16 111/60 100 Mechanical Ventilator 40 09/15/18 00:00 Mechanical Ventilator 09/15/18 00:00 127 09/14/18 23:17 108 20 100 Mechanical Ventilator 40 09/14/18 23:06 40 09/14/18 23:06 103 16 40 09/14/18 23:06 103 18 100 Mechanical Ventilator 40 09/14/18 21:02 112 18 40 09/14/18 20:00 102 09/14/18 20:00 Mechanical Ventilator 09/14/18 20:00 99.0 100 18 114/54 100 Mechanical Ventilator 40 09/14/18 19:24 104 16 40 09/14/18 16:50 102 20 40 09/14/18 16:00 Mechanical Ventilator 09/14/18 16:00 98.5 100 16 100/66 100 Mechanical Ventilator 40 09/14/18 16:00 40 09/14/18 16:00 106 09/14/18 15:35 101 20 40 09/14/18 13:30 106 20 40 09/14/18 12:00 98.2 99 16 93/54 100 Mechanical Ventilator 40 09/14/18 12:00 Mechanical Ventilator 09/14/18 12:00 40 09/14/18 12:00 130 09/14/18 11:09 99 20 40 Height (Feet): 5 Height (Inches): 8.00 Weight (Pounds): 203 General Appearance: no acute distress HEENT: status post trach Respiratory/Chest: lungs clear Cardiovascular: tachycardia Abdomen: soft, non tender, other - GT feeding Extremities: no edema Neurologic/Psychiatric: aphasia, other - Opens eyes Microbiology Date/Time Source Procedure Growth Status 09/13/18 05:00 Urine,Clean Catch Urine Culture - Preliminary Resulted Laboratory Tests Test 09/15/18 04:50 Sodium Level 142 MMOL/L (136-145) Potassium Level 2.5 MMOL/L (3.5-5.1) *L Chloride Level 102 MMOL/L (98-107) Carbon Dioxide Level 31 MMOL/L (21-32) Anion Gap 9 mmol/L (5-15) Blood Urea Nitrogen 19 mg/dL (7-18) H Creatinine 1.0 MG/DL (0.55-1.30) Estimat Glomerular Filtration Rate > 60 mL/min (>60) Glucose Level 122 MG/DL (74-106) H Calcium Level 9.2 MG/DL (8.5-10.1) Current Medications Medications (Trade) Dose Ordered Sig/Guillermo Route PRN Reason Start Time Stop Time Status Last Admin Dose Admin Acetaminophen (Tylenol) 650 mg Q4H PRN GT Mild Pain/Temp > 100.5 09/10/18 13:03 10/10/18 13:02 09/15/18 01:06 Acetaminophen/ Hydrocodone Bitart ([place] 5/325) 1 tab Q4H PRN ORAL PAIN 4-10 09/08/18 20:15 09/15/18 20:14 Amikacin Sulfate (Amikin) 500 mg Q12HR@10,22 INH 09/13/18 22:00 09/20/18 21:59 09/15/18 10:03 Aspirin (ASA) 81 mg DAILY GT 09/11/18 09:00 10/11/18 08:59 09/15/18 09:00 Bisacodyl (Dulcolax) 10 mg DAILYPRN PRN RECTAL Constipation 09/08/18 20:15 10/08/18 20:14 Carbamazepine (TEGretol) 400 mg Q8HR GT 09/12/18 15:00 10/09/18 08:59 09/15/18 06:07 Dextrose (Dextrose 50%) 25 ml Q30M PRN IV Hypoglycemia 09/09/18 14:15 10/09/18 14:14 09/12/18 18:42 Dextrose (Dextrose 50%) 50 ml Q30M PRN IV Hypoglycemia 09/09/18 14:15 10/09/18 14:14 Epoetin Grabiel (Epoetin Grabiel-EPBX(NON ESRD)) 10,000 unit WED- SUBQ 09/14/18 21:00 10/14/18 20:59 09/14/18 20:55 Ferrous Sulfate (Feosol) 325 mg BID GT 09/19/18 09:00 10/19/18 08:59 Fluconazole (Diflucan) 100 mg Q24H GT 09/10/18 11:00 09/17/18 10:59 09/14/18 10:03 Insulin Aspart (NovoLOG) Q6HR SUBQ 09/09/18 18:00 10/09/18 17:59 09/15/18 06:08 Iron Sucrose 100 mg/Sodium Chloride 60 ml @ 240 mls/hr BEDTIME IVPB 09/14/18 21:00 09/18/18 21:14 09/14/18 20:54 Levetiracetam (Keppra) 500 mg Q12HR GT 09/08/18 21:00 10/08/18 20:59 09/15/18 09:00 Lorazepam (Ativan 2mg/ml 1ml) 1 mg Q2HR PRN IV For Seizures 09/08/18 20:00 09/15/18 19:59 09/11/18 21:14 Magnesium Hydroxide (Mom) 30 ml DAILYPRN PRN GT Constipation 09/08/18 20:15 10/08/18 20:14 Metoclopramide HCl (Reglan) 10 mg Q6H PRN IVP Nausea & Vomiting 09/09/18 11:45 10/09/18 11:44 09/10/18 00:54 Midodrine (Pro-Amatine) 2.5 mg THREE TIMES A DAY GT 09/09/18 09:00 10/09/18 08:59 09/15/18 09:00 Potassium Chloride (K-Dur) 40 meq ONCE GT 09/15/18 11:30 09/15/18 13:00 Valproic Acid (Depakene) 1,500 mg EVERY 12 HOURS GT 09/09/18 09:00 10/09/18 08:59 09/15/18 09:00 John Elizalde MD Sep 15, 2018 11:08
[2018-09-15] MEDS: Fluconazole 100mg tab GT SCH (11:09)
--- NOTE | 2018-09-15 11:31 | NUR ---
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 2) Difficulty swallowing R/T resp status as evidenced by pt vent dependent via trach w/PEG, TF unable to reach goal rate due to elev residuals. 3) Altered nutrition related lab values R/T h/o DM, uncontrolled BGs as evidenced by POC glu (175-529). CURRENT TF:Glucerna 1.5 @ 50ml/hr x 24 hrs ENTERAL NUTRITION RECOMMENDATIONS: Glucerna 1.5 @ 50ml/hr x 24 hrs to provide 1200ml, 1800kcal, 99g prot, 911ml free water * Cont to increase 5-10ml q 4-6 hrs as tolerated to goal rate * HOB >30 degrees/H20 flush per MD ADDITIONAL RECOMMENDATIONS: 1) PER SNF (09/07/18) pt is: 6'4" tall and 139# (63.2kg) 2) Wound care: Marcelino 1 pkt BID + Vit C 500mg QD 3) Monitor lytes, replete as needed (K critically low) 4) Weekly calibrated bed scale wts 5) Consider long acting insuling for improved glycemic control : Consider endo consult for uncontrolled BGs 6) Rec routine reglan (vs prn) for improved TF tolerance(last given on 09/10)
[2018-09-15 12:00] VITALS: BP 117/65
[2018-09-15 16:00] VITALS: BP 115/63
--- NOTE | 2018-09-15 16:45 | NUR ---
HAND-OFF: Report given to Genoveva Villanueva RN. Patient stable.
--- NOTE | 2018-09-15 17:00 | NUR ---
NURSE NOTES: Assumed pt care,report given by Radha Sullivan.pt resting in bed asleep noted no resp distress,with trach tube to vent,current settings tolerated,no signs of pain or discomfort SR on the monitor,with GTF,Glucerna 1.5 at 20 ml/hr with 50 ml residual,condom cath in placed,IV site to RH intact, skin warm and dry SR up x2 HOB elevated,bed lock in lowest position will continue with plans of care.
--- NOTE | 2018-09-15 19:18 | NUR ---
CASE MANAGEMENT: REVIEW 09/15/2018 SI: SEPSIS . SEIZURE . RESPIRATORY FAILURE T 98.4 HR 105 RR 20 B/P 115/63 SATS 100% ON MECH VENT FiO2 40 K 2.5 BUN 19 GLU 122 IS: AMIKACIN INH Q12HR TEGRETOL GT Q8HR ASA GT QD DIFLUCAN GT Q24HR KEPPRA GT Q12HR MIDODRINE GT TID DEPAKENE GT Q12HR STEP DOWN UNIT STATUS DCP: PATIENT IS FROM [facility] [place]
--- NOTE | 2018-09-15 19:30 | NUR ---
HAND-OFF: Report given Maegan Bonds RN,pt stable no resp distress presented..
--- NOTE | 2018-09-15 19:40 | NUR ---
NURSE NOTES: Received report from Natalia Farrar RN. Patient is asleep in bed, obtunded. No s/s of acute distress noted. Sinus tach on nuclear medical technologist. Trach-vent settings: Portex 9, AC 16, Vt 600, FiO2 24%, PEEP 5 and saturating well. Receiving Glucerna 1.5 @ 20 cc/hr, with goal of 50 cc/hr; tolerating well. Condom catheter in place and draining well to gravity. Right hand 22g TKO, intact and patent . Bed locked in lowest position with padded side rails up x3. Call light left within reach. Will continue to monitor.
--- NOTE | 2018-09-15 19:50 | NUR ---
HAND-OFF: Report given to Radha Bauer RN,change of pt's assignment..
[2018-09-15 20:00] VITALS: BP 129/66
[2018-09-15] MEDS: Iron Sucrose 100 MG in NS 55 ML IVPB SCH (20:37)
[2018-09-15] MEDS: Levemir Flexpen SUBQ SCH (20:41)
[2018-09-16] VITALS: BP 100/57
[2018-09-16] MEDS: NovoLOG Insulin Flexpen SUBQ SCH ×5 (00:13→23:31)
[2018-09-16 04:00] VITALS: BP 105/66
[2018-09-16] MEDS: carBAMazepine 200mg tab GT SCH ×3 (05:30→21:52)
[2018-09-16 06:25] LABS: ANION GAP 9 mmol/L (5-15); BLOOD UREA NITROGEN 17 mg/dL (7-18); CARBON DIOXIDE 33 MMOL/L (21-32); CHLORIDE 105 MMOL/L (98-107); CREATININE 1.1 MG/DL (0.55-1.30); SODIUM 147 MMOL/L (136-145)
--- NOTE | 2018-09-16 07:01 | NUR ---
NURSE NOTES: Dr. Ashu MD made aware of patient's potassium 3.0 and sodium 147. New orders received. Noted and carried out.
--- NOTE | 2018-09-16 07:12 | NUR ---
HAND-OFF: Report given to Kay Sullivan RN.
--- NOTE | 2018-09-16 07:13 | NUR ---
NURSE NOTES: Received patient from PASHA Macedo. Patient in bed and asleep. dye winch operator in placed. Trach to vent dependent. Currently on gtube feeding Glucerna 1.5 at 40 cc/hour. Condom cath in placed. IV site is asymptomatic. Bed in lowest position with side rails up. Will continue to follow plan of care.
--- NOTE | 2018-09-16 07:26 | NUR ---
RESPIRATORY NOTE: received pt on vent, trach dependent with portex 9; secured via trach guard/tie. no resp distress noted. vent settings are current. ambu bag at bedside and plugged into red outlet. alarms are on and audible. will cont to monitor
[2018-09-16 08:00] VITALS: BP 108/70
[2018-09-16] MEDS: levETIRAcetam 500mg/5ml Liquid GT SCH ×2 (08:38→20:17)
[2018-09-16] MEDS: Valproic Acid 250mg/5ml Liquid GT SCH ×2 (08:38→20:18)
[2018-09-16] MEDS: Aspirin Baby 81mg GT SCH (08:39)
[2018-09-16] MEDS: Levemir Flexpen SUBQ SCH ×2 (08:41→20:22)
--- NOTE | 2018-09-16 09:17 | Infectious Diseases Prog Note ---
Assessment/Plan Assessment/Plan antibiotics : inhaled amikacin, fluconazole A 1. pseudomonas pneumonia 2. fungal UTI s/p rx 3. respiratory failure 4. CVA 5. seizures P 1. continue inhaled amikacin 3 more days 2. d/c fluconazole 3. will follow up cultures Subjective ROS Limited/Unobtainable: Yes Allergies: Coded Allergies: No Known Allergies (Unverified , 07/21/16) Objective Vital Signs Last 24 Hour Vital Signs Date Time Temp Pulse Resp B/P (MAP) Pulse Ox O2 Delivery O2 Flow Rate FiO2 09/16/18 08:00 98.2 115 21 108/70 99 Mechanical Ventilator 40.0 09/16/18 07:21 84 16 40 09/16/18 05:22 95 17 40 09/16/18 04:00 40 09/16/18 04:00 Mechanical Ventilator 09/16/18 04:00 98.2 86 18 105/66 100 Mechanical Ventilator 40.0 09/16/18 03:42 101 09/16/18 02:57 92 16 40 09/16/18 01:30 75 16 40 09/16/18 00:00 Mechanical Ventilator 09/16/18 00:00 98.6 74 16 100/57 100 Mechanical Ventilator 40.0 09/15/18 23:36 79 09/15/18 23:30 78 17 40 09/15/18 22:40 92 17 100 Mechanical Ventilator 09/15/18 22:30 81 16 100 Mechanical Ventilator 40 09/15/18 22:29 99.4 09/15/18 20:37 95 16 40 09/15/18 20:00 40 09/15/18 20:00 Mechanical Ventilator 09/15/18 20:00 100.0 105 16 129/66 99 Mechanical Ventilator 40.0 09/15/18 19:30 96 16 40 09/15/18 19:01 92 09/15/18 16:51 105 16 40 09/15/18 16:00 Mechanical Ventilator 09/15/18 16:00 98.4 105 20 115/63 100 Mechanical Ventilator 40.0 105 09/15/18 16:00 99 09/15/18 16:00 40 09/15/18 15:00 98 16 40 09/15/18 13:05 105 17 40 09/15/18 12:00 99.3 106 18 117/65 100 Mechanical Ventilator 40 09/15/18 12:00 Mechanical Ventilator 09/15/18 12:00 40 09/15/18 11:46 113 09/15/18 10:50 109 19 40 09/15/18 10:13 117 17 100 Mechanical Ventilator 40 09/15/18 10:03 40 09/15/18 10:03 131 18 100 Mechanical Ventilator 40 Height (Feet): 5 Height (Inches): 8.00 Weight (Pounds): 203 HEENT: status post trach Respiratory/Chest: lungs clear Cardiovascular: normal rate, regular rhythm, no gallop/murmur Abdomen: soft, non tender, other - GT Extremities: no edema Laboratory Tests Test 09/16/18 04:40 Sodium Level 147 MMOL/L (136-145) H Potassium Level 3.0 MMOL/L (3.5-5.1) L Chloride Level 105 MMOL/L (98-107) Carbon Dioxide Level 33 MMOL/L (21-32) H Anion Gap 9 mmol/L (5-15) Blood Urea Nitrogen 17 mg/dL (7-18) Creatinine 1.1 MG/DL (0.55-1.30) Estimat Glomerular Filtration Rate > 60 mL/min (>60) Glucose Level 163 MG/DL (74-106) H Calcium Level 9.0 MG/DL (8.5-10.1) Current Medications Medications (Trade) Dose Ordered Sig/Guillermo Route PRN Reason Start Time Stop Time Status Last Admin Dose Admin Acetaminophen (Tylenol) 650 mg Q4H PRN GT Mild Pain/Temp > 100.5 09/10/18 13:03 10/10/18 13:02 09/15/18 21:59 Amikacin Sulfate (Amikin) 500 mg Q12HR@10,22 INH 09/13/18 22:00 09/20/18 21:59 09/15/18 23:21 Aspirin (ASA) 81 mg DAILY GT 09/11/18 09:00 10/11/18 08:59 09/16/18 08:39 Bisacodyl (Dulcolax) 10 mg DAILYPRN PRN RECTAL Constipation 09/08/18 20:15 10/08/18 20:14 Carbamazepine (TEGretol) 400 mg Q8HR GT 09/12/18 15:00 10/09/18 08:59 09/16/18 05:30 Dextrose (Dextrose 50%) 25 ml Q30M PRN IV Hypoglycemia 09/09/18 14:15 10/09/18 14:14 09/12/18 18:42 Dextrose (Dextrose 50%) 50 ml Q30M PRN IV Hypoglycemia 09/09/18 14:15 10/09/18 14:14 Epoetin Grabiel (Epoetin Grabiel-EPBX(NON ESRD)) 10,000 unit WED-WED-WED SUBQ 09/14/18 21:00 10/14/18 20:59 09/14/18 20:55 Ferrous Sulfate (Feosol) 325 mg BID GT 09/19/18 09:00 10/19/18 08:59 Fluconazole (Diflucan) 100 mg Q24H GT 09/10/18 11:00 09/17/18 10:59 09/15/18 11:09 Insulin Aspart (NovoLOG) Q6HR SUBQ 09/09/18 18:00 10/09/18 17:59 09/16/18 05:32 Insulin Detemir (Levemir) 5 units Q12HR SUBQ 09/15/18 21:00 10/15/18 20:59 09/16/18 08:41 Iron Sucrose 100 mg/Sodium Chloride 60 ml @ 240 mls/hr BEDTIME IVPB 09/14/18 21:00 09/18/18 21:14 09/15/18 20:37 Levetiracetam (Keppra) 500 mg Q12HR GT 09/08/18 21:00 10/08/18 20:59 09/16/18 08:38 Magnesium Hydroxide (Mom) 30 ml DAILYPRN PRN GT Constipation 09/08/18 20:15 10/08/18 20:14 Metoclopramide HCl (Reglan) 10 mg Q6H PRN IVP Nausea & Vomiting 09/09/18 11:45 10/09/18 11:44 09/10/18 00:54 Midodrine (Pro-Amatine) 2.5 mg THREE TIMES A DAY GT 09/09/18 09:00 10/09/18 08:59 09/16/18 08:39 Sodium Chloride 1,000 ml @ 75 mls/hr [id number] IV 09/16/18 08:00 10/16/18 07:59 09/16/18 08:04 Valproic Acid (Depakene) 1,500 mg EVERY 12 HOURS GT 09/09/18 09:00 10/09/18 08:59 09/16/18 08:38 Tracie Isaac MD Sep 16, 2018 09:17
[2018-09-16] MEDS: Amikacin for Inhalation 2ML INH SCH ×2 (10:07→21:53)
[2018-09-16 12:00] VITALS: BP 115/68
[2018-09-16 16:00] VITALS: BP 104/85
--- NOTE | 2018-09-16 18:57 | NUR ---
RESPIRATORY NOTE: Received pt on AC 16, 600VT, 40%, PEEP +5. Pt trach-dependent w/ a cuffed, Portex 9. Pt obtunded, responds to pain. B/S jonh. rhonchi/diminished, sxn small amounts of thick, pale-yellow secretions. Vent plugged into red outlet, ambubag & spare trach kit at bedside. Pt in no apparent distress at this time. Will continue plan of care.
--- NOTE | 2018-09-16 19:15 | NUR ---
HAND-OFF: Report given to PASHA Mitchell. Patient stable.
--- NOTE | 2018-09-16 19:20 | NUR ---
NURSE NOTES: Received report from Radha RN, pt. in bed obtunded, no sign or symptoms of acute cardiac or respiratory symptoms noted, bed in lowest position and call light within easy reach, bed alarm on, side rails up x's3 and safety brakes engaged, cardiac monitoring on, pt. appears to be tolerating current vent settings well- AC 16, TV 600, Fio2 @40% and peep of 5- no respiratory distress noted, pt. has Glucerna 1.5 running Via G tube at 40cc/hr- no residual noted- Goal is 50cc/hr. Condom cath intact and draining to gravity, dressings dry and intact, comfort measures provided, Lt. hand 22G- IV intact and patent- running 1/2 NS @75cc/hr, safety measures continued, will continue with plan of care. Addendum: 09/16/18 at 1999 by JB SRINIVASAN RN RN side rails padded for seizure precautions.
[2018-09-16 20:00] VITALS: BP 117/77
--- NOTE | 2018-09-16 20:14 | Pulmonology Progress Note ---
Assessment/Plan Assessment/Plan Pulmonary Progress Note Assessment/Plan IMPRESSION respiratory failure trach seizures fever leukocytosis possible sepsis hematuria anemia PLAN ID evaluation appreciated Iv antibiotics noted respiratory care oxygen seizure meds monitor mother refuses transfusion due to zoroastrian beliefs epogen ativan sliding scale repeat labs impression, plan, and exam edited and reviewed in detail care discussed with RN Subjective ROS Limited/Unobtainable: Yes Allergies: Coded Allergies: No Known Allergies (Unverified , 07/21/16) Subjective care noted cultures noted ID noted Objective Vital Signs Noted Laboratory Tests 09/14/18 09:15: White Blood Count 11.8H, Red Blood Count 2.31L, Hemoglobin 7.1L, Hematocrit 21.6L, Mean Corpuscular Volume 93, Mean Corpuscular Hemoglobin 30.8, Mean Corpuscular Hemoglobin Concent 32.9, Red Cell Distribution Width 12.7, Platelet Count 301, Mean Platelet Volume 6.1L, Neutrophils (%) (Auto) , Lymphocytes (%) ( Auto) , Monocytes (%) (Auto) , Eosinophils (%) (Auto) , Basophils (%) (Auto) , Differential Total Cells Counted 100, Neutrophils % (Manual) 85H, Lymphocytes % (Manual) 6L, Monocytes % (Manual) 8, Eosinophils % (Manual) 1, Basophils % ( Manual) 0, Band Neutrophils 0, Platelet Estimate Adequate, Platelet Morphology Normal, Hypochromasia 1+, Iron Level 33L, Total Iron Binding Capacity 116L, Percent Iron Saturation 28, Unsaturated Iron Binding 83L, Ferritin 630H 09/15/18 04:50: Sodium Level 142, Potassium Level 2.5*L, Chloride Level 102, Carbon Dioxide Level 31, Anion Gap 9, Blood Urea Nitrogen 19H, Creatinine 1.0, Estimat Glomerular Filtration Rate > 60, Glucose Level 122H, Calcium Level 9.2 Height (Feet): 5 Height (Inches): 8.00 Weight (Pounds): 203 Objective WDWN NAD trach clear breath sounds bilaterally without rhonchi or wheeze [id number] without MRG NABS nontender no HSM no CC contracted poor LOC Gt Subjective ROS Limited/Unobtainable: No Allergies: Coded Allergies: No Known Allergies (Unverified , 07/21/16) Objective Last 24 Hour Vital Signs Date Time Temp Pulse Resp B/P (MAP) Pulse Ox O2 Delivery O2 Flow Rate FiO2 09/16/18 18:55 69 16 40 09/16/18 17:00 105 16 40 09/16/18 16:00 Mechanical Ventilator 09/16/18 16:00 40 09/16/18 16:00 98.8 93 16 104/85 100 Mechanical Ventilator 40.0 09/16/18 15:17 92 09/16/18 15:09 86 16 40 09/16/18 12:48 82 16 40 09/16/18 12:00 40 09/16/18 12:00 99.6 88 16 115/68 99 Mechanical Ventilator 40.0 09/16/18 12:00 Mechanical Ventilator 09/16/18 11:35 97 09/16/18 10:58 87 16 40 09/16/18 10:14 117 16 100 Mechanical Ventilator 09/16/18 10:07 88 16 100 Mechanical Ventilator 40 09/16/18 08:41 91 16 40 09/16/18 08:00 Mechanical Ventilator 09/16/18 08:00 40 09/16/18 08:00 98.2 115 21 108/70 99 Mechanical Ventilator 40.0 09/16/18 07:36 90 09/16/18 07:21 84 16 40 09/16/18 05:22 95 17 40 09/16/18 04:00 40 09/16/18 04:00 Mechanical Ventilator 09/16/18 04:00 98.2 86 18 105/66 100 Mechanical Ventilator 40.0 09/16/18 03:42 101 09/16/18 02:57 92 16 40 09/16/18 01:30 75 16 40 09/16/18 00:00 Mechanical Ventilator 09/16/18 00:00 98.6 74 16 100/57 100 Mechanical Ventilator 40.0 09/15/18 23:36 79 09/15/18 23:30 78 17 40 09/15/18 22:40 92 17 100 Mechanical Ventilator 09/15/18 22:30 81 16 100 Mechanical Ventilator 40 09/15/18 22:29 99.4 09/15/18 20:37 95 16 40 Intake and Output 09/15/18 09/16/18 19:00 07:00 Intake Total 290 ml 520 ml Output Total 850 ml Balance -560 ml 520 ml Intake Free Water 30 ml 120 ml IV Total 60 ml Tube Feeding 200 ml 340 ml Other 60 ml Output Urine Total 850 ml # Bowel Movements 1 1 Laboratory Tests 09/16/18 04:40: Sodium Level 147H, Potassium Level 3.0L, Chloride Level 105, Carbon Dioxide Level 33H, Anion Gap 9, Blood Urea Nitrogen 17, Creatinine 1.1, Estimat Glomerular Filtration Rate > 60, Glucose Level 163H, Calcium Level 9.0 Current Medications Medications (Trade) Dose Ordered Sig/Guillermo Route PRN Reason Start Time Stop Time Status Last Admin Dose Admin Acetaminophen (Tylenol) 650 mg Q4H PRN GT Mild Pain/Temp > 100.5 09/10/18 13:03 10/10/18 13:02 09/15/18 21:59 Amikacin Sulfate (Amikin) 500 mg Q12HR@,22 INH 09/13/18 22:00 09/20/18 21:59 09/16/18 10:07 Aspirin (ASA) 81 mg DAILY GT 09/11/18 09:00 10/11/18 08:59 09/16/18 08:39 Bisacodyl (Dulcolax) 10 mg DAILYPRN PRN RECTAL Constipation 09/08/18 20:15 10/08/18 20:14 Carbamazepine (TEGretol) 400 mg Q8HR GT 09/12/18 15:00 10/09/18 08:59 09/16/18 14:47 Dextrose (Dextrose 50%) 25 ml Q30M PRN IV Hypoglycemia 09/09/18 14:15 10/09/18 14:14 09/12/18 18:42 Dextrose (Dextrose 50%) 50 ml Q30M PRN IV Hypoglycemia 09/09/18 14:15 10/09/18 14:14 Epoetin Grabiel (Epoetin Grabiel-EPBX(NON ESRD)) 10,000 unit WED-WED-WED SUBQ 09/14/18 21:00 10/14/18 20:59 09/14/18 20:55 Ferrous Sulfate (Feosol) 325 mg BID GT 09/19/18 09:00 10/19/18 08:59 Insulin Aspart (NovoLOG) Q6HR SUBQ 09/09/18 18:00 10/09/18 17:59 09/16/18 18:00 Insulin Detemir (Levemir) 5 units Q12HR SUBQ 09/15/18 21:00 10/15/18 20:59 09/16/18 08:41 Iron Sucrose 100 mg/Sodium Chloride 60 ml @ 240 mls/hr BEDTIME IVPB 09/14/18 21:00 09/18/18 21:14 09/15/18 20:37 Levetiracetam (Keppra) 500 mg Q12HR GT 09/08/18 21:00 10/08/18 20:59 09/16/18 08:38 Magnesium Hydroxide (Mom) 30 ml DAILYPRN PRN GT Constipation 09/08/18 20:15 10/08/18 20:14 Metoclopramide HCl (Reglan) 10 mg Q6H PRN IVP Nausea & Vomiting 09/09/18 11:45 10/09/18 11:44 09/10/18 00:54 Midodrine (Pro-Amatine) 2.5 mg THREE TIMES A DAY GT 09/09/18 09:00 10/09/18 08:59 09/16/18 17:58 Sodium Chloride 1,000 ml @ 75 mls/hr [id number] IV 09/16/18 08:00 10/16/18 07:59 09/16/18 08:04 Valproic Acid (Depakene) 1,500 mg EVERY 12 HOURS GT 09/09/18 09:00 10/09/18 08:59 09/16/18 08:38 Jl Ash MD Sep 16, 2018 20:14
[2018-09-16] MEDS: Epoetin Alfa-EPBX (NON ESRD)10,000 unit/ml vial SUBQ SCH (20:16)
[2018-09-16] MEDS: Iron Sucrose 100 MG in NS 55 ML IVPB SCH (20:17)
[2018-09-17] VITALS (27 sets, daily range): BP systolic 76–143; BP diastolic 29–88
[2018-09-17] MEDS: carBAMazepine 200mg tab GT SCH ×3 (06:07→23:47)
[2018-09-17] MEDS: NovoLOG Insulin Flexpen SUBQ SCH ×4 (06:09→23:49)
--- NOTE | 2018-09-17 06:59 | NUR ---
HAND-OFF: Report given to Radha RN, pt. remains stable and no signs of distress noted.
--- NOTE | 2018-09-17 07:00 | NUR ---
NURSE NOTES: Received patient from PASHA Mitchell. Patient in bed and asleep. Trach to vent dependent. No signs of respiratory distress. Gtube feeding with Glucerna 1.5 at 40cc/hour - goal is 50cc/hour. Condom catheter in placed and draining well. IV site is asymptomatic and running 1/2NS at 75 cc/hour. Bed in lowest position with side rails up. Will continue to follow plan of care.
[2018-09-17] MEDS: Aspirin Baby 81mg GT SCH (09:12)
[2018-09-17] MEDS: levETIRAcetam 500mg/5ml Liquid GT SCH ×2 (09:12→21:23)
[2018-09-17] MEDS: Valproic Acid 250mg/5ml Liquid GT SCH ×2 (09:13→21:23)
[2018-09-17] MEDS: Levemir Flexpen SUBQ SCH ×2 (09:15→21:25)
[2018-09-17 10:06] LABS: ANION GAP 7 mmol/L (5-15); BLOOD UREA NITROGEN 16 mg/dL (7-18); CALCIUM 8.5 MG/DL (8.5-10.1); CARBON DIOXIDE 32 MMOL/L (21-32); CHLORIDE 103 MMOL/L (98-107); POTASSIUM 4.1 MMOL/L (3.5-5.1); SODIUM 142 MMOL/L (136-145)
[2018-09-17] MEDS: Amikacin for Inhalation 2ML INH SCH ×2 (10:57→21:46)
--- NOTE | 2018-09-17 11:07 | NUR ---
CASE MANAGEMENT: REVIEW 09/17/2018 SI: SEPSIS . SEIZURE . RESPIRATORY FAILURE T 99.8 HR 109 RR 16 B/P 139/88 SATS 100% ON MECH VENT FIO2 40 GLU 319 IS: AMIKACIN INH Q12HR TEGRETOL GT Q8HR ASA GT QD DIFLUCAN GT Q24HR KEPPRA GT Q12HR MIDODRINE GT TID DEPAKENE GT Q12HR STEP DOWN UNIT STATUS DCP: PATIENT IS FROM [facility] [place]
--- NOTE | 2018-09-17 12:11 | NUR ---
NURSE NOTES: Informed Dr. Wakefield that blood sugar via fingerstick was 429 at 9am - Levemir 5 units was given. Blood sugar via fingerstick is "critically high" and 14 units of novolog was given. No new order.
--- NOTE | 2018-09-17 12:30 | NUR ---
DISCHARGE DISPOSITION: PLEASE READ PATIENT TO BE DISCHARGED TO [facility] [address] [facility] [address] T: [phone]>>> CALL [facility] FOR REPORT [employer] W/ RT ETA 1500 TRANSFER REPORT TO BE PROVIDED.
--- NOTE | 2018-09-17 13:03 | NUR ---
NURSE NOTES: Rechecked patient's blood sugar and it was 507. Received an order for 10units of Regular insulin and carried out.
[2018-09-17] MEDS: Acetaminophen 650mg/20.3ml GT PRN (13:56)
--- NOTE | 2018-09-17 14:13 | NUR ---
NURSE NOTES: [address] Wakefield's order. Left message to Dr. Wakefield regarding result of 12 lead ECG.
[2018-09-17] MEDS ORDERED: Insulin Human Regular 100units/ml 3ml IV ONE (14:30)
--- NOTE | 2018-09-17 14:37 | NUR ---
NURSE NOTES: Dr. Wakefield called back, with order to give cardizem 10mg IVP x1 for high heart rate. Informed RN/Radha.
[2018-09-17] MEDS ORDERED: dilTIAZem HCl 25mg/5ml Inj IVP SCH (14:45)
[2018-09-17] MEDS ORDERED: LORazepam Inj 2mg/ml 1ml IV PRN ×2 (17:30→20:30)
--- NOTE | 2018-09-17 17:30 | NUR ---
TRANSFER TO FLOOR: Patient transferred to ICU at 1830, per Dr. Wakefield. Report given to PASHA Garay and endorsed to her that stool was collected. Chart given to AM Charge Nurse. Talisha Whitman (Mother) informed of transfer.
[2018-09-17] MEDS ORDERED: LORazepam Inj 2mg/ml 1ml IV SCH (17:45)
--- NOTE | 2018-09-17 18:00 | NUR ---
NURSE NOTES: Informed Dr. Wakefield that patient had an episode of seizure for 18 minutes, on and off. Received an order for Ativan, carried out and given. Another episodes of seizures lasted for 1 min, 2min, and 2 min with 10 seconds interval. Received another order for Ativan, carried out and given. No episode of seizure after. Also informed him that temperature was 102.6F (Tylenol and cooling measures were provided) at noon and temperature of 97.5F at the time of the seizure. Latest VS before transferred to ICU was BP 122/85 HR 126 RR 26 02sat 100% Temp 97.5. Dr. Wakefield aware of latest ABG results. Charge nurse also aware.
[2018-09-17] MEDS ORDERED: D5W IV SCH (20:00)
[2018-09-17] MEDS ORDERED: AMIODARONE IV SCH (20:00)
--- NOTE | 2018-09-17 20:00 | NUR ---
NURSE NOTES: Received report from PASHA Garcia. Patient transferred from SDU to ICU per Dr. Wakefield. Patient in bed obtunded, no moaning no facial grimaces. Trach to vent No s/s of acute distress noted. HOB elevated. Suctioned and oral care provided. GT intact no residual running Glucerna 1.5 at 40cc/hr goal 50cc/hr. Inserted Condom cath. On P200 mattress for wound management. Contact isolation maintained and observed. Temp 101 axillary cooling measure provided. Non s/s of hypo/hyperglycemia. IV line on Right hand #22 intact running Amiodarone drip 1mg/min. Will start Propofol drip per order, will insert IV line. Seizure precaution maintained and observed. Bed alarm on. Bed locked and in low position. Will continue plan of care.
[2018-09-17] MEDS ORDERED: Milk of Magnesia 30ml Ud GT PRN (20:15)
--- NOTE | 2018-09-17 20:16 | NUR ---
NURSE NOTES: Patient lethargic,calm,Propofol scanned but not started. Charge nurse aware. Repositioned patient, when checked patient for GT residual noted pt with 150cc residual. HELD GT feeding. Hob elevated. Will continue to monitor pt.
--- NOTE | 2018-09-17 20:16 | NUR ---
NURSE NOTES: Propofol medication was handed by Pharmacist to Jl PAK at around 1900 scanned and supposed to started but pt was too lethargic not needing the sedation unable to waste med due to med came from pharmacy spoke with Abhijit Pharmacist about the waste. Charge nurse aware.
[2018-09-17 20:51] LABS: HEMATOCRIT 24.3 % (42.0-52.0); HEMOGLOBIN 8.2 G/DL (14.2-18.0); MEAN CORPUSCULAR VOLUME 95 FL (80-99); PLATELET COUNT 514 K/UL (150-450); RED BLOOD COUNT 2.54 M/UL (4.70-6.10); RED CELL DISTRIBUTION WIDTH 13.7 % (11.6-14.8)
[2018-09-17 20:57] LABS: WHITE BLOOD COUNT 28.8 K/UL (4.8-10.8)
[2018-09-17] MEDS ORDERED: Levemir Flexpen SUBQ SCH (21:00)
[2018-09-17] MEDS ORDERED: Acetaminophen 650mg/20.3ml GT PRN (21:00)
[2018-09-17] MEDS ORDERED: Metoclopramide 10mg/2ml Inj IVP PRN (21:00)
[2018-09-17] MEDS: Iron Sucrose 100 MG in NS 55 ML IV SCH (21:00)
[2018-09-17 21:05] LABS: ANION GAP 9 mmol/L (5-15); BLOOD UREA NITROGEN 20 mg/dL (7-18); CARBON DIOXIDE 29 MMOL/L (21-32); CHLORIDE 98 MMOL/L (98-107); CREATININE 1.5 MG/DL (0.55-1.30); POTASSIUM 4.3 MMOL/L (3.5-5.1); SODIUM 136 MMOL/L (136-145)
[2018-09-17 21:10] LABS: ALANINE AMINOTRANSFERASE 20 U/L (12-78); ALBUMIN 2.3 G/DL (3.4-5.0); ALBUMIN/GLOBULIN RATIO 0.4 (1.0-2.7); ALKALINE PHOSPHATASE 123 U/L (46-116); ASPARTATE AMINO TRANSFERASE 41 U/L (15-37); BILIRUBIN,TOTAL 0.4 MG/DL (0.2-1.0)
--- NOTE | 2018-09-17 21:56 | NUR ---
NURSE NOTES: Family at bedside, updated regarding patient condition.
--- NOTE | 2018-09-17 23:37 | NUR ---
NURSE NOTES: Repositioned. patient sleeping comfortably, no s/s of acute distress noted. No episode of seizure at this time. Will continue plan of care.
[2018-09-18] VITALS (41 sets, daily range): BP systolic 82–141; BP diastolic 29–72
--- NOTE | 2018-09-18 01:31 | NUR ---
NURSE NOTES: Patient in bed no s/s of acute distress noted. Temp 98.8 axillary. HR 87 on the groundwater monitoring technician,Amiodarone drip 1mg/min. HOB elevated. Comfort measure provided. No episode of seizure, seizure precaution provided. Will continue plan of care.
--- NOTE | 2018-09-18 02:10 | NUR ---
NURSE NOTES: Patient in bed sleeping comfortably. Titrate Amiodarone 0.5mg/min. HR 85 BP 82/33. HOB elevated. GT no residual. No s/s of acute distress noted. will continue plan of care.
--- NOTE | 2018-09-18 04:10 | NUR ---
NURSE NOTES: Patient in bed sleeping comfortably. Continue on Amiodarone 0.5mg/min. HR 85 BP 104/42. HOB elevated. GT no residual. No s/s of acute distress noted. will continue plan of care.
--- NOTE | 2018-09-18 06:10 | NUR ---
NURSE NOTES: Patient in bed sleeping comfortably. Continue on Amiodarone 0.5mg/min. HR 89,BP 109/33. HOB elevated. GT no residual.No fever Temp 98.0 axillary.Condom cath draining. No s/s of hypo/hyperglycemia. No episode of seizure. No s/s of acute distress noted. will continue plan of care.
[2018-09-18] MEDS: NovoLOG Insulin Flexpen SUBQ SCH ×3 (06:22→17:46)
[2018-09-18] MEDS: carBAMazepine 200mg tab GT SCH ×3 (06:33→23:02)
--- NOTE | 2018-09-18 06:40 | NUR ---
RESPIRATORY NOTE: Received pt on trach cuffed, Portex 9.0 with current vent settings: AC [id number]%- peep of 5. Pt is tolerating well the setting, saturates at 95%. Yeison rhonchi breath sounds heard upon auscultation, sxn small amount of thick frothy white yellow secretions without incidents. Pt is resting comfortably in the bed, HOB elevated, vent is plugged into the red outlet, alarms are set and audible, ambubag and spare trach at bedside. No SOB or resp distress noted. Will continue to monitor pt closely.
--- NOTE | 2018-09-18 07:38 | NUR ---
HAND-OFF: Report given to PASHA Parikh.
--- NOTE | 2018-09-18 08:15 | NUR ---
NURSE NOTES: patient report received from PASHA nicole. patient remains on Amoidarone drip at 0.5mg/hr at 16.66 with HR in the 80-95, IV is patient on the Left forearm with no leaking or swelling noted while flushing. Patient is calm with no pain noted, patient Pereira remains draining clear urine.
[2018-09-18] MEDS: Aspirin Baby 81mg GT SCH (09:11)
[2018-09-18] MEDS: Valproic Acid 250mg/5ml Liquid GT SCH ×2 (09:11→21:01)
[2018-09-18] MEDS: levETIRAcetam 500mg/5ml Liquid GT SCH ×2 (09:12→21:01)
[2018-09-18] MEDS: Levemir Flexpen SUBQ SCH ×2 (09:15→21:07)
--- NOTE | 2018-09-18 09:30 | NUR ---
NURSE NOTES: Dr. Elizalde updated on patient condition at the bedside, WBC is 24.3 from yesterdays, blood draw, no verbal orders given a this time. will follow orders.
--- NOTE | 2018-09-18 09:51 | Infectious Diseases Prog Note ---
Assessment/Plan Assessment/Plan A; Sepsis Xenia UTI ? pneumonia VDRF s/p CVA P: Continue Amikacin inhaler CXR , UA, Urine culture start on IV Vancomycin & Cefepime Subjective ROS Limited/Unobtainable: Yes Constitutional: Reports: fever Cardiovascular: Reports: other - transferred to ICU because of tachycardia on Amiodarone drip Neurologic: Reports: other - ? seizure activity Allergies: Coded Allergies: No Known Allergies (Unverified , 07/21/16) Objective Vital Signs Last 24 Hour Vital Signs Date Time Temp Pulse Resp B/P (MAP) Pulse Ox O2 Delivery O2 Flow Rate FiO2 09/18/18 09:05 84 16 40 09/18/18 06:40 86 16 40 09/18/18 05:11 89 16 40 09/18/18 04:00 88 09/18/18 04:00 Mechanical Ventilator 09/18/18 04:00 40 09/18/18 03:20 86 16 40 09/18/18 02:30 83 16 82/33 (49) 100 09/18/18 02:00 87 16 91/33 (52) 100 09/18/18 01:30 88 17 111/31 (57) 100 09/18/18 01:17 89 16 40 09/18/18 01:00 85 16 92/31 (51) 09/18/18 00:30 89 16 82/39 (53) 09/18/18 00:00 97 09/18/18 00:00 Mechanical Ventilator 09/18/18 00:00 40 09/18/18 00:00 98.4 09/18/18 00:00 92 16 87/34 (51) 09/17/18 23:56 92 16 90/29 (49) 100 09/17/18 23:46 94 16 76/49 (58) 100 09/17/18 23:19 108 21 85/61 (69) 100 09/17/18 23:15 99 21 81/46 (58) 100 09/17/18 23:07 109 22 40 09/17/18 23:00 103 24 81/45 (57) 09/17/18 22:45 107 24 90/48 (62) 100 09/17/18 22:33 114 31 91/49 (63) 100 09/17/18 22:31 115 29 88/54 (65) 100 09/17/18 22:30 116 29 88/55 (66) 100 09/17/18 22:15 117 16 96/60 (72) 100 09/17/18 22:00 132 21 125/77 (93) 100 09/17/18 21:58 122 16 100 Mechanical Ventilator 40 09/17/18 21:49 40 09/17/18 21:48 120 17 100 Mechanical Ventilator 40 09/17/18 21:45 124 24 102/61 (75) 100 09/17/18 21:30 124 24 91/55 (67) 100 09/17/18 21:15 122 21 96/51 (66) 100 09/17/18 21:06 124 22 40 09/17/18 21:00 125 20 95/51 (66) 100 09/17/18 20:49 99.7 09/17/18 20:45 129 22 96/57 (70) 100 09/17/18 20:30 133 25 111/69 (83) 100 09/17/18 20:27 129 35 114/66 (82) 100 09/17/18 20:15 128 27 100 09/17/18 20:15 24 81/42 Mechanical Ventilator 40 09/17/18 20:04 118 17 81/52 (62) 100 09/17/18 20:00 40 09/17/18 20:00 101.0 09/17/18 20:00 126 09/17/18 20:00 Mechanical Ventilator 09/17/18 20:00 122 17 81/50 (60) 09/17/18 19:45 123 20 100 09/17/18 19:30 128 20 100 09/17/18 19:25 130 26 40 09/17/18 19:15 133 21 100 09/17/18 19:10 132 22 90/53 (65) 100 09/17/18 19:08 133 25 88/58 (68) 100 09/17/18 19:00 140 23 93 09/17/18 17:20 117 26 40 09/17/18 16:00 99.8 109 16 139/88 100 Mechanical Ventilator 40.0 09/17/18 16:00 Mechanical Ventilator 09/17/18 16:00 40 09/17/18 15:35 122 09/17/18 15:12 134 19 40 09/17/18 14:54 140 143/84 09/17/18 14:26 102.6 09/17/18 12:53 120 18 40 09/17/18 12:00 Mechanical Ventilator 09/17/18 12:00 40 09/17/18 12:00 100.6 101 17 143/84 100 Mechanical Ventilator 40.0 09/17/18 11:51 99 09/17/18 11:16 85 16 40 09/17/18 11:15 85 16 100 Mechanical Ventilator 40 09/17/18 10:56 91 17 40 09/17/18 10:55 91 17 100 Mechanical Ventilator 40 Height (Feet): 5 Height (Inches): 8.00 Weight (Pounds): 226 General Appearance: no acute distress HEENT: status post trach Respiratory/Chest: lungs clear, other - on ventilator Cardiovascular: normal rate Abdomen: soft, non tender, other - GT feeding Genitourinary: other - condom catheter Extremities: no edema Neurologic/Psychiatric: unresponsiveness Laboratory Tests Test 09/17/18 17:46 09/17/18 20:25 09/17/18 21:00 Arterial Blood pH 7.421 (7.350-7.450) Arterial Blood Partial Pressure CO2 42.5 mmHg (35.0-45.0) Arterial Blood Partial Pressure O2 88.3 mmHg (75.0-100.0) Arterial Blood HCO3 27.0 mmol/L (22.0-26.0) H Arterial Blood Oxygen Saturation 95.8 % (95-100) Arterial Blood Base Excess 2.3 (-2-2) H Dewey Test Positive White Blood Count 28.8 K/UL (4.8-10.8) *H Red Blood Count 2.54 M/UL (4.70-6.10) L Hemoglobin 8.2 G/DL (14.2-18.0) L Hematocrit 24.3 % (42.0-52.0) L Mean Corpuscular Volume 95 FL (80-99) Mean Corpuscular Hemoglobin 32.3 PG (27.0-31.0) H Mean Corpuscular Hemoglobin Concent 33.8 G/DL (32.0-36.0) Red Cell Distribution Width 13.7 % (11.6-14.8) Platelet Count 514 K/UL (150-450) H Mean Platelet Volume 5.3 FL (6.5-10.1) L Neutrophils (%) (Auto) % (45.0-75.0) Lymphocytes (%) (Auto) % (20.0-45.0) Monocytes (%) (Auto) % (1.0-10.0) Eosinophils (%) (Auto) % (0.0-3.0) Basophils (%) (Auto) % (0.0-2.0) Differential Total Cells Counted 100 Neutrophils % (Manual) 77 % (45-75) H Lymphocytes % (Manual) 9 % (20-45) L Monocytes % (Manual) 4 % (1-10) Eosinophils % (Manual) 0 % (0-3) Basophils % (Manual) 0 % (0-2) Band Neutrophils 10 % (0-8) H Platelet Estimate Increased H Platelet Morphology Normal Hypochromasia 1+ Sodium Level 136 MMOL/L (136-145) Potassium Level 4.3 MMOL/L (3.5-5.1) Chloride Level 98 MMOL/L (98-107) Carbon Dioxide Level 29 MMOL/L (21-32) Anion Gap 9 mmol/L (5-15) Blood Urea Nitrogen 20 mg/dL (7-18) H Creatinine 1.5 MG/DL (0.55-1.30) H Estimat Glomerular Filtration Rate > 60 mL/min (>60) Glucose Level 362 MG/DL (74-106) H Calcium Level 9.0 MG/DL (8.5-10.1) Total Bilirubin 0.4 MG/DL (0.2-1.0) Aspartate Amino Transf (AST/SGOT) 41 U/L (15-37) H Alanine Aminotransferase (ALT/SGPT) 20 U/L (12-78) Alkaline Phosphatase 123 U/L (46-116) H Total Protein 8.0 G/DL (6.4-8.2) Albumin 2.3 G/DL (3.4-5.0) L Globulin 5.7 g/dL Albumin/Globulin Ratio 0.4 (1.0-2.7) L Stool Occult Blood Pending Current Medications Medications (Trade) Dose Ordered Sig/Guillermo Route PRN Reason Start Time Stop Time Status Last Admin Dose Admin Acetaminophen (Tylenol) 650 mg Q4H PRN GT Mild Pain/Temp > 100.5 09/17/18 21:00 10/10/18 20:59 Amikacin Sulfate (Amikin) 500 mg Q12HR@10,22 INH 09/17/18 22:00 09/20/18 21:59 09/17/18 21:46 Amiodarone HCl 900 mg/Dextrose 500 ml @ 0 mls/hr Q24H IV 09/17/18 20:00 09/18/18 19:59 09/17/18 19:10 Aspirin (ASA) 81 mg DAILY GT 09/18/18 09:00 10/11/18 08:59 09/18/18 09:11 Bisacodyl (Dulcolax) 10 mg DAILYPRN PRN RECTAL Constipation 09/17/18 20:15 10/08/18 20:14 Carbamazepine (TEGretol) 400 mg Q8HR GT 09/17/18 22:00 10/09/18 08:59 09/18/18 06:33 Dextrose (Dextrose 50%) 25 ml Q30M PRN IV Hypoglycemia 09/17/18 20:15 10/09/18 14:14 Dextrose (Dextrose 50%) 50 ml Q30M PRN IV Hypoglycemia 09/17/18 20:15 10/09/18 14:14 Epoetin Grabiel (Epoetin Grabiel-EPBX(NON ESRD)) 10,000 unit WED-WED-WED SUBQ 09/19/18 21:00 10/14/18 20:59 Ferrous Sulfate (Feosol) 300 mg BID GT 09/19/18 09:00 10/19/18 08:59 Insulin Aspart (NovoLOG) Q6HR SUBQ 09/18/18 00:00 10/09/18 17:59 09/18/18 06:22 Insulin Detemir (Levemir) 8 units Q12HR SUBQ 09/17/18 21:00 10/15/18 20:59 09/18/18 09:15 Iron Sucrose 100 mg/Sodium Chloride 60 ml @ 240 mls/hr BEDTIME IV 09/17/18 21:00 09/18/18 21:14 09/17/18 21:00 Levetiracetam (Keppra) 500 mg Q12HR GT 09/17/18 21:00 10/08/18 20:59 09/18/18 09:12 Lorazepam (Ativan 2mg/ml 1ml) 1 mg Q3H PRN IV For Anxiety 09/17/18 20:30 09/24/18 17:29 Magnesium Hydroxide (Mom) 30 ml DAILYPRN PRN GT Constipation 09/17/18 20:15 10/08/18 20:14 Metoclopramide HCl (Reglan) 10 mg Q6H PRN IVP Nausea & Vomiting 09/17/18 21:00 10/09/18 20:59 Midodrine (Pro-Amatine) 2.5 mg THREE TIMES A DAY GT 09/18/18 09:00 10/09/18 08:59 09/18/18 09:11 Propofol 100 ml @ 0 mls/hr Q24H IV 09/18/18 20:00 09/19/18 19:59 09/17/18 20:15 Valproic Acid (Depakene) 1,500 mg EVERY 12 HOURS GT 09/17/18 21:00 10/09/18 08:59 09/18/18 09:11 John Elizalde MD Sep 18, 2018 09:51
[2018-09-18] MEDS: Amikacin for Inhalation 2ML INH SCH ×2 (09:58→21:21)
--- NOTE | 2018-09-18 10:27 | General Progress Note ---
Assessment/Plan Assessment/Plan IMPRESSION respiratory failure trach seizures fever leukocytosis possible sepsis hematuria anemia PSVT PLAN ID evaluation appreciated antibiotics adjusted Iv antibiotics noted respiratory care ativan PRN for seizures oxygen seizure meds monitor off amio for recurrence of SVT hope to transition back to SDU mother refuses transfusion due to anglican beliefs epogen sliding scale repeat labs noted; recheck in am impression, plan, and exam edited and reviewed in detail care discussed with RN Subjective Allergies: Coded Allergies: No Known Allergies (Unverified , 07/21/16) Subjective care noted cultures noted ID noted transferred to ICU for SVT and seizures currently stable Objective Last 24 Hour Vital Signs Date Time Temp Pulse Resp B/P (MAP) Pulse Ox O2 Delivery O2 Flow Rate FiO2 09/18/18 09:58 85 16 93 Mechanical Ventilator 40 09/18/18 09:05 84 16 40 09/18/18 06:40 86 16 40 09/18/18 05:11 89 16 40 09/18/18 04:00 88 09/18/18 04:00 Mechanical Ventilator 09/18/18 04:00 40 09/18/18 03:20 86 16 40 09/18/18 02:30 83 16 82/33 (49) 100 09/18/18 02:00 87 16 91/33 (52) 100 09/18/18 01:30 88 17 111/31 (57) 100 09/18/18 01:17 89 16 40 09/18/18 01:00 85 16 92/31 (51) 09/18/18 00:30 89 16 82/39 (53) 09/18/18 00:00 97 09/18/18 00:00 Mechanical Ventilator 09/18/18 00:00 40 09/18/18 00:00 98.4 09/18/18 00:00 92 16 87/34 (51) 09/17/18 23:56 92 16 90/29 (49) 100 09/17/18 23:46 94 16 76/49 (58) 100 09/17/18 23:19 108 21 85/61 (69) 100 09/17/18 23:15 99 21 81/46 (58) 100 09/17/18 23:07 109 22 40 09/17/18 23:00 103 24 81/45 (57) 09/17/18 22:45 107 24 90/48 (62) 100 09/17/18 22:33 114 31 91/49 (63) 100 09/17/18 22:31 115 29 88/54 (65) 100 09/17/18 22:30 116 29 88/55 (66) 100 09/17/18 22:15 117 16 96/60 (72) 100 09/17/18 22:00 132 21 125/77 (93) 100 09/17/18 21:58 122 16 100 Mechanical Ventilator 40 09/17/18 21:49 40 09/17/18 21:48 120 17 100 Mechanical Ventilator 40 09/17/18 21:45 124 24 102/61 (75) 100 09/17/18 21:30 124 24 91/55 (67) 100 09/17/18 21:15 122 21 96/51 (66) 100 09/17/18 21:06 124 22 40 09/17/18 21:00 125 20 95/51 (66) 100 09/17/18 20:49 99.7 09/17/18 20:45 129 22 96/57 (70) 100 09/17/18 20:30 133 25 111/69 (83) 100 09/17/18 20:27 129 35 114/66 (82) 100 09/17/18 20:15 128 27 100 09/17/18 20:15 24 81/42 Mechanical Ventilator 40 09/17/18 20:04 118 17 81/52 (62) 100 09/17/18 20:00 40 09/17/18 20:00 101.0 09/17/18 20:00 126 09/17/18 20:00 Mechanical Ventilator 09/17/18 20:00 122 17 81/50 (60) 09/17/18 19:45 123 20 100 09/17/18 19:30 128 20 100 09/17/18 19:25 130 26 40 09/17/18 19:15 133 21 100 09/17/18 19:10 132 22 90/53 (65) 100 09/17/18 19:08 133 25 88/58 (68) 100 09/17/18 19:00 140 23 93 09/17/18 17:20 117 26 40 09/17/18 16:00 99.8 109 16 139/88 100 Mechanical Ventilator 40.0 09/17/18 16:00 Mechanical Ventilator 09/17/18 16:00 40 09/17/18 15:35 122 09/17/18 15:12 134 19 40 09/17/18 14:54 140 143/84 09/17/18 14:26 102.6 09/17/18 12:53 120 18 40 09/17/18 12:00 Mechanical Ventilator 09/17/18 12:00 40 09/17/18 12:00 100.6 101 17 143/84 100 Mechanical Ventilator 40.0 09/17/18 11:51 99 09/17/18 11:16 85 16 40 09/17/18 11:15 85 16 100 Mechanical Ventilator 40 09/17/18 10:56 91 17 40 09/17/18 10:55 91 17 100 Mechanical Ventilator 40 Intake and Output 09/17/18 09/18/18 19:00 07:00 Intake Total 240 ml 468.5 ml Output Total 600 ml 320 ml Balance -360 ml 148.5 ml Intake Free Water 80 ml 50 ml IV Total 68.5 ml Tube Feeding 160 ml 350 ml Output Urine Total 600 ml 320 ml # Voids 1 # Bowel Movements 1 Laboratory Tests 09/17/18 17:46: Arterial Blood pH 7.421, Arterial Blood Partial Pressure CO2 42.5, Arterial Blood Partial Pressure O2 88.3, Arterial Blood HCO3 27.0H, Arterial Blood Oxygen Saturation 95.8, Arterial Blood Base Excess 2.3H, Dewey Test Positive 09/17/18 20:25: White Blood Count 28.8*H, Red Blood Count 2.54L, Hemoglobin 8.2L, Hematocrit 24.3L, Mean Corpuscular Volume 95, Mean Corpuscular Hemoglobin 32.3H, Mean Corpuscular Hemoglobin Concent 33.8, Red Cell Distribution Width 13.7, Platelet Count 514H, Mean Platelet Volume 5.3L, Neutrophils (%) (Auto) , Lymphocytes (%) (Auto) , Monocytes (%) (Auto) , Eosinophils (%) (Auto) , Basophils (%) (Auto) , Differential Total Cells Counted 100, Neutrophils % (Manual) 77H, Lymphocytes % (Manual) 9L, Monocytes % (Manual) 4, Eosinophils % (Manual) 0, Basophils % ( Manual) 0, Band Neutrophils 10H, Platelet Estimate IncreasedH, Platelet Morphology Normal, Hypochromasia 1+, Sodium Level 136, Potassium Level 4.3, Chloride Level 98, Carbon Dioxide Level 29, Anion Gap 9, Blood Urea Nitrogen 20H , Creatinine 1.5H, Estimat Glomerular Filtration Rate > 60, Glucose Level 362H, Calcium Level 9.0, Total Bilirubin 0.4, Aspartate Amino Transf (AST/SGOT) 41H, Alanine Aminotransferase (ALT/SGPT) 20, Alkaline Phosphatase 123H, Total Protein 8.0, Albumin 2.3L, Globulin 5.7, Albumin/Globulin Ratio 0.4L 09/17/18 21:00: Stool Occult Blood [Pending] Height (Feet): 5 Height (Inches): 8.00 Weight (Pounds): 226 Objective WDWN NAD trach clear breath sounds bilaterally without rhonchi or wheeze [id number] without MRG NABS nontender no HSM no CC contracted poor LOC Gt Andres Wakefield MD Sep 18, 2018 10:27
[2018-09-18] MEDS ORDERED: Cefepime HCl 1 GM in D5W 55 ML IVPB SCH (11:00)
[2018-09-18 11:11] LABS: HEMATOCRIT 22.2 % (42.0-52.0); HEMOGLOBIN 7.5 G/DL (14.2-18.0); MEAN CORPUSCULAR VOLUME 94 FL (80-99); PLATELET COUNT 443 K/UL (150-450); RED BLOOD COUNT 2.36 M/UL (4.70-6.10); RED CELL DISTRIBUTION WIDTH 13.2 % (11.6-14.8); WHITE BLOOD COUNT 18.5 K/UL (4.8-10.8)
[2018-09-18 11:22] LABS: ANION GAP 10 mmol/L (5-15); BLOOD UREA NITROGEN 23 mg/dL (7-18); CARBON DIOXIDE 28 MMOL/L (21-32); CHLORIDE 108 MMOL/L (98-107); POTASSIUM 5.1 MMOL/L (3.5-5.1); SODIUM 146 MMOL/L (136-145)
[2018-09-18] MEDS ORDERED: Vancomycin 1.5gm/D5W 275ml IVPB ONE (11:30)
--- NOTE | 2018-09-18 11:30 | NUR ---
NURSE NOTES: Dr. Elizalde placed order for cefepime and vancomycin, he also orders to have a CBC and CMP drawn, will follow orders
[2018-09-18] MEDS: Cefepime 2gm in D5W 55ml IVPB SCH ×2 (12:08→21:00)
--- NOTE | 2018-09-18 14:30 | NUR ---
NURSE NOTES: Dr. Wakefield called to inform of hgb drip to 7.5, MD aware and no orders given, patient is jahoba witness and has already orders for epogen and iron IVBP, will continue to monitor.
--- NOTE | 2018-09-18 16:15 | NUR ---
NURSE NOTES: Chest X-rat taken with no distress from patient, he remains on amiodarone at 0.5mg/hr with 16.66ml/hr. image sent for reading to stat rad, will continue plan of care.
[2018-09-18 17:18] LABS: APPEARANCE,URINE CLOUDY; BILIRUBIN, URINE NEGATIVE (NEGATIVE); GLUCOSE, URINE (UA) NEGATIVE (NEGATIVE); KETONES,URINE 1+ (NEGATIVE); LEUKOCYTE ESTERASE ,URINE 3+ (NEGATIVE); NITRITE,URINE NEGATIVE (NEGATIVE); PH,URINE 5 (4.5-8.0); PROTEIN,URINE 3+ (NEGATIVE); UROBILINOGEN,URINE 1 MG/DL (0.0-1.0)
[2018-09-18 17:20] LABS: COLOR,URINE YELLOW
[2018-09-18] MEDS ORDERED: 1/2 NS 1000ml IV ONE (17:29)
[2018-09-18] MEDS ORDERED: NS 275ml ONE (17:29)
[2018-09-18] MEDS ORDERED: Tubing IV Secondary IV ONE ×2 (17:29→17:33)
--- NOTE | 2018-09-18 19:33 | NUR ---
RESPIRATORY NOTE: Received pt. on 840 vent. Vent settings are: A/C rate of 16, Vt 600, FI02 40%, PEEP +5. No respiratory distress noted, pt. Sp02 @ 100%. Ambu bag @ BS. Vent plugged on red outlet. Will continue to monitor pt.
--- NOTE | 2018-09-18 19:40 | NUR ---
NURSE NOTES: Received report from PASHA Parikh. Patient in bed obtunded, no moaning no facial grimaces. Trach to vent No s/s of acute distress noted. HOB elevated. Suctioned and oral care provided. GT intact no residual running Glucerna 1.5 at 50cc/hr. Inserted Condom cath. On P200 mattress for wound management. Contact isolation maintained and observed. Temp 101 oral cooling measure provided and Tylenol 650mg via GT given. Non s/s of hypo/hyperglycemia. IV line on Right F/A and hand #22, intact no s/s of infiltration. Seizure precaution maintained and observed. Bed alarm on. Bed locked and in low position. Will continue plan of care.
--- NOTE | 2018-09-18 19:49 | NUR ---
HAND-OFF: Report given to PASHA Banks.
[2018-09-18] MEDS ORDERED: Amiodarone 900 MG in D5W 500ml 482 ML IV SCH (20:00)
--- NOTE | 2018-09-18 20:20 | NUR ---
NURSE NOTES: Called DR. Wakefield if MD wants to continue Amiodarone drip pts HR 88, per MD no order.
[2018-09-18] MEDS: Iron Sucrose 100 MG in NS 55 ML IV SCH (21:01)
--- NOTE | 2018-09-18 22:00 | NUR ---
NURSE NOTES: Repositioned. Temp 98 oral. suctioned and oral care provided. Gt intact no residual. Will continue plan of care
[2018-09-19] VITALS (23 sets, daily range): BP systolic 93–130; BP diastolic 42–81
--- NOTE | 2018-09-19 | NUR ---
NURSE NOTES: Patient blood glucose 110mg/dl no coverage. Repositioned. Comfort measure provided. Temp 97.5 axillary. HR 74, BP 118/55.Will continue plan of care.
--- NOTE | 2018-09-19 02:00 | NUR ---
NURSE NOTES: Bed bath given tolerated well. HR 78 no s/s of acute distress noted. Condom cath draining. Suctioned and oral care provided. No moaning no facial grimaces noted. Will continue plan of care.
--- NOTE | 2018-09-19 04:00 | NUR ---
NURSE NOTES: Patient in bed sleeping comfortably. HR 81. HOB elevated. GT no residual. No s/s of acute distress noted. will continue plan of care.
--- NOTE | 2018-09-19 05:00 | NUR ---
NURSE NOTES: remains on bicarb drip, moving extremities at this time and breathing over the vent, still unable to have o2 sat readings, levophed remains at 30 mcg/min
[2018-09-19] MEDS: carBAMazepine 200mg tab GT SCH ×3 (05:39→21:42)
[2018-09-19] MEDS: NovoLOG Insulin Flexpen SUBQ SCH ×5 (05:47→23:29)
[2018-09-19 06:01] LABS: HEMATOCRIT 23.8 % (42.0-52.0); HEMOGLOBIN 7.8 G/DL (14.2-18.0); MEAN CORPUSCULAR VOLUME 95 FL (80-99); PLATELET COUNT 482 K/UL (150-450); RED BLOOD COUNT 2.51 M/UL (4.70-6.10); RED CELL DISTRIBUTION WIDTH 14.3 % (11.6-14.8); WHITE BLOOD COUNT 13.8 K/UL (4.8-10.8)
--- NOTE | 2018-09-19 06:03 | NUR ---
NURSE NOTES: Blood glucose 155mg/dl NovoLog 4 units given per sliding scale. No s/s of acute distress noted. no fever Temp 97,9 axillary. HR 80. No s/s of seizure activity. Will continue plan of care.
[2018-09-19 06:42] LABS: ANION GAP 7 mmol/L (5-15); BLOOD UREA NITROGEN 21 mg/dL (7-18); CALCIUM 9.5 MG/DL (8.5-10.1); CARBON DIOXIDE 31 MMOL/L (21-32); CHLORIDE 105 MMOL/L (98-107); CREATININE 0.9 MG/DL (0.55-1.30); POTASSIUM 3.9 MMOL/L (3.5-5.1); SODIUM 143 MMOL/L (136-145)
--- NOTE | 2018-09-19 07:12 | NUR ---
RESPIRATORY NOTE: received pt on vent, trach size portex 9, secured via trach tie/guard. no redness or skin tears around stoma or neck. no resp distress noted at this time. vitals are WNL. ambu at bedside with alarms on and audible. vent plugged into red outlet. will cont to monitor.
--- NOTE | 2018-09-19 07:13 | NUR ---
HAND-OFF: Report given to Justine PAK.
--- NOTE | 2018-09-19 07:15 | NUR ---
NURSE NOTES: Received report from Amol Bullard RN. Patient obtunded, nonverbal, unable to follow commands and make needs known. Trach to vent with settings of AC 16, TV 600, FiO2 40%, PEEP 5, saturating at 100%. GT feeding of Glucerna 1.5 running @ 50 cc/hr, no residuals noted. Condom catheter in place. Left hand 22g and left forearm 22g IV sites patent and asymptomatic. Cooling measures in place. Bed locked in lowest position with padded side rails up x 3. All needs attended to. Will continue to monitor.
--- NOTE | 2018-09-19 08:45 | General Progress Note ---
Assessment/Plan Assessment/Plan IMPRESSION respiratory failure trach seizures fever leukocytosis possible sepsis hematuria anemia PSVT PLAN ID evaluation noted antibiotics noted respiratory care ativan PRN for seizures oxygen seizure meds off amio and stable back to SDU mother refuses transfusion due to confucianist beliefs epogen sliding scale hope to stabilize further impression, plan, and exam edited and reviewed in detail care discussed with RN Subjective ROS Limited/Unobtainable: Yes Allergies: Coded Allergies: No Known Allergies (Unverified , 07/21/16) Subjective care noted cultures noted ID noted hemodynamics stable currently stable Objective Last 24 Hour Vital Signs Date Time Temp Pulse Resp B/P (MAP) Pulse Ox O2 Delivery O2 Flow Rate FiO2 09/19/18 08:00 40 09/19/18 07:30 81 16 114/48 (70) 100 09/19/18 07:09 82 16 40 09/19/18 07:00 81 16 116/50 (72) 09/19/18 06:30 80 16 113/56 (75) 09/19/18 06:00 81 16 114/53 (73) 100 09/19/18 05:30 78 16 116/42 (66) 100 09/19/18 05:30 80 17 40 09/19/18 05:00 78 16 120/47 (71) 100 09/19/18 04:30 85 16 125/79 (94) 100 09/19/18 04:00 78 09/19/18 04:00 Mechanical Ventilator 09/19/18 04:00 40 09/19/18 04:00 97.5 76 17 117/50 (72) 100 09/19/18 03:30 75 17 120/53 (75) 100 09/19/18 03:25 80 16 40 09/19/18 03:00 81 19 129/56 (80) 100 09/19/18 02:30 78 16 116/51 (72) 100 09/19/18 02:00 77 16 113/59 (77) 100 09/19/18 01:30 76 16 116/55 (75) 100 09/19/18 01:25 75 17 40 09/19/18 01:00 77 16 126/45 (72) 09/19/18 00:30 77 17 118/55 (76) 09/19/18 00:00 Mechanical Ventilator 09/19/18 00:00 98.5 74 16 104/55 (71) 100 2/17/19 23:50 79 16 40 09/18/18 23:30 73 16 103/48 (66) 09/18/18 23:00 80 16 114/55 (74) 09/18/18 22:30 99 14 139/47 (77) 09/18/18 22:00 80 16 110/49 (69) 09/18/18 21:43 77 16 99 Mechanical Ventilator 40 09/18/18 21:33 40 09/18/18 21:30 87 16 104/44 (64) 100 09/18/18 21:23 96 16 100 Mechanical Ventilator 40 09/18/18 21:21 97 16 40 09/18/18 21:00 87 22 98/29 (52) 100 09/18/18 20:30 103 17 118/53 (74) 100 09/18/18 20:21 99.9 09/18/18 20:00 40 09/18/18 20:00 Mechanical Ventilator 09/18/18 20:00 118 23 129/68 (88) 100 09/18/18 20:00 81 09/18/18 19:30 101.0 109 17 114/53 (73) 91 09/18/18 19:28 107 19 40 09/18/18 19:00 107 24 100/41 (60) 09/18/18 18:30 109 22 99/42 (61) 99 09/18/18 18:00 122 20 108/48 (68) 99 09/18/18 17:30 132 20 141/38 (72) 99 09/18/18 17:00 117 20 124/44 (70) 99 09/18/18 16:40 116 29 40 09/18/18 16:30 115 20 125/56 (79) 99 09/18/18 16:01 99.8 94 16 112/39 (63) 99 09/18/18 16:00 40 09/18/18 16:00 Mechanical Ventilator 09/18/18 16:00 106 20 127/60 (82) 99 09/18/18 15:30 94 16 112/39 (63) 99 09/18/18 15:30 93 09/18/18 15:10 92 16 40 09/18/18 15:00 91 17 110/44 (66) 96 09/18/18 14:30 87 16 115/41 (65) 98 2/17/19 14:00 84 17 102/35 (57) 100 09/18/18 13:30 81 16 101/36 (57) 100 09/18/18 13:00 84 16 106/32 (56) 100 09/18/18 12:50 92 16 40 09/18/18 12:30 96 18 116/72 (87) 100 09/18/18 12:00 81 09/18/18 12:00 98.2 80 16 110/40 (63) 96 09/18/18 12:00 40 09/18/18 12:00 Mechanical Ventilator 09/18/18 11:30 82 16 114/37 (62) 97 09/18/18 11:00 84 16 116/58 (77) 96 09/18/18 10:30 95 16 122/42 (68) 100 09/18/18 10:30 93 16 40 09/18/18 10:10 40 09/18/18 10:10 85 16 97 Mechanical Ventilator 40 09/18/18 10:00 86 16 118/42 (67) 92 09/18/18 09:58 85 16 93 Mechanical Ventilator 40 09/18/18 09:30 96 16 130/57 (81) 100 09/18/18 09:05 84 16 40 09/18/18 09:00 86 14 111/50 (70) 99 Intake and Output 09/18/18 09/19/18 19:00 07:00 Intake Total 1329.92 ml 115 ml Output Total 400 ml Balance 929.92 ml 115 ml Intake Free Water 180 ml IV Total 529.92 ml 115 ml Tube Feeding 600 ml Other 20 ml Output Urine Total 400 ml Laboratory Tests 09/18/18 10:30: White Blood Count 18.5H, Red Blood Count 2.36L, Hemoglobin 7.5L, Hematocrit 22.2L, Mean Corpuscular Volume 94, Mean Corpuscular Hemoglobin 31.6H, Mean Corpuscular Hemoglobin Concent 33.7, Red Cell Distribution Width 13.2, Platelet Count 443, Mean Platelet Volume 5.0L, Neutrophils (%) (Auto) , Lymphocytes (%) ( Auto) , Monocytes (%) (Auto) , Eosinophils (%) (Auto) , Basophils (%) (Auto) , Differential Total Cells Counted 100, Neutrophils % (Manual) 41L, Lymphocytes % (Manual) 13L, Monocytes % (Manual) 4, Eosinophils % (Manual) 6H, Basophils % ( Manual) 1, Band Neutrophils 35H, Platelet Estimate Adequate, Platelet Morphology Normal, Polychromasia 1+, Hypochromasia 1+, Sodium Level 146#H, Potassium Level 5.1, Chloride Level 108H, Carbon Dioxide Level 28, Anion Gap 10 , Blood Urea Nitrogen 23H, Creatinine 1.0, Estimat Glomerular Filtration Rate > 60, Glucose Level 131#H, Calcium Level 9.0 09/18/18 15:50: Urine Color Yellow, Urine Appearance Cloudy, Urine pH 5, Urine Specific [place] 1.010, Urine Protein 3+H, Urine Glucose (UA) Negative, Urine Ketones 1+H, Urine Blood 4+H, Urine Nitrite Negative, Urine Bilirubin Negative, Urine Urobilinogen 1H, Urine Leukocyte Esterase 3+H, Urine RBC 10-15H, Urine WBC TntcH, Urine Squamous Epithelial Cells Occasional, Urine Bacteria ManyH, Urine Yeast ManyH 09/19/18 04:25: White Blood Count 13.8H, Red Blood Count 2.51L, Hemoglobin 7.8L, Hematocrit 23.8L, Mean Corpuscular Volume 95, Mean Corpuscular Hemoglobin 31.2H, Mean Corpuscular Hemoglobin Concent 32.9, Red Cell Distribution Width 14.3, Platelet Count 482H, Mean Platelet Volume 5.3L, Neutrophils (%) (Auto) , Lymphocytes (%) (Auto) , Monocytes (%) (Auto) , Eosinophils (%) (Auto) , Basophils (%) (Auto) , Neutrophils % (Manual) [Pending], Lymphocytes % (Manual) [Pending], Platelet Estimate [Pending], Platelet Morphology [Pending], Sodium Level 143, Potassium Level 3.9, Chloride Level 105, Carbon Dioxide Level 31, Anion Gap 7, Blood Urea Nitrogen 21H, Creatinine 0.9, Estimat Glomerular Filtration Rate > 60, Glucose Level 137H, Calcium Level 9.5, Random Vancomycin Level 13.2 Height (Feet): 5 Height (Inches): 8.00 Weight (Pounds): 211 Objective WDWN NAD trach clear breath sounds bilaterally without rhonchi or wheeze [id number] without MRG NABS nontender no HSM no CC contracted poor LOC Gt Andres Wakefield MD Sep 19, 2018 08:45
--- NOTE | 2018-09-19 08:50 | NUR ---
NURSE NOTES: Patient seen and evaluated by Dr. Wakefield at bedside. Patient to be transferred to SDU.
[2018-09-19] MEDS: Cefepime 2gm in D5W 55ml IVPB SCH (08:55)
[2018-09-19] MEDS: Valproic Acid 250mg/5ml Liquid GT SCH ×2 (08:55→21:38)
[2018-09-19] MEDS: levETIRAcetam 500mg/5ml Liquid GT SCH ×2 (08:55→21:38)
[2018-09-19] MEDS: Aspirin Baby 81mg GT SCH (08:55)
[2018-09-19] MEDS: Levemir Flexpen SUBQ SCH ×2 (08:57→21:00)
[2018-09-19] MEDS ORDERED: Ferrous Sulfate 300 MG/5 ML UDC GT SCH ×2 (09:00)
[2018-09-19] MEDS ORDERED: Vancomycin 1gm/D5W 275ml IVPB SCH ×2 (10:00)
[2018-09-19] MEDS: Amikacin for Inhalation 2ML INH SCH ×2 (10:12→22:03)
--- NOTE | 2018-09-19 11:42 | Infectious Diseases Prog Note ---
Assessment/Plan Assessment/Plan antibiotics : vancomycin iv, cefepime, inhaled amikacin A 1. pseudomonas pneumonia 2. fungal UTI s/p rx 3. respiratory failure 4. CVA 5. seizures 6. fever P 1. continue iv vancomycin, cefepime, inhaled amikacin 2. will follow up cultures Subjective ROS Limited/Unobtainable: Yes Allergies: Coded Allergies: No Known Allergies (Unverified , 07/21/16) Objective Vital Signs Last 24 Hour Vital Signs Date Time Temp Pulse Resp B/P (MAP) Pulse Ox O2 Delivery O2 Flow Rate FiO2 09/19/18 10:27 95 16 40 09/19/18 10:26 98 17 100 Mechanical Ventilator 40 09/19/18 10:13 77 17 96 Mechanical Ventilator 40 09/19/18 10:00 79 16 119/51 (73) 100 09/19/18 09:00 81 16 120/52 (74) 100 09/19/18 08:46 87 16 40 09/19/18 08:00 97.5 83 17 130/62 (84) 100 09/19/18 08:00 40 09/19/18 08:00 Mechanical Ventilator 09/19/18 07:30 81 16 114/48 (70) 100 09/19/18 07:09 82 16 40 09/19/18 07:00 81 16 116/50 (72) 09/19/18 06:30 80 16 113/56 (75) 09/19/18 06:00 81 16 114/53 (73) 100 09/19/18 05:30 78 16 116/42 (66) 100 09/19/18 05:30 80 17 40 09/19/18 05:00 78 16 120/47 (71) 100 09/19/18 04:30 85 16 125/79 (94) 100 09/19/18 04:00 78 09/19/18 04:00 Mechanical Ventilator 09/19/18 04:00 40 09/19/18 04:00 97.5 76 17 117/50 (72) 100 09/19/18 03:30 75 17 120/53 (75) 100 09/19/18 03:25 80 16 40 09/19/18 03:00 81 19 129/56 (80) 100 09/19/18 02:30 78 16 116/51 (72) 100 09/19/18 02:00 77 16 113/59 (77) 100 09/19/18 01:30 76 16 116/55 (75) 100 09/19/18 01:25 75 17 40 09/19/18 01:00 77 16 126/45 (72) 09/19/18 00:30 77 17 118/55 (76) 09/19/18 00:00 Mechanical Ventilator 09/19/18 00:00 98.5 74 16 104/55 (71) 100 09/18/18 23:50 79 16 40 09/18/18 23:30 73 16 103/48 (66) 09/18/18 23:00 80 16 114/55 (74) 09/18/18 22:30 99 14 139/47 (77) 09/18/18 22:00 80 16 110/49 (69) 09/18/18 21:43 77 16 99 Mechanical Ventilator 40 09/18/18 21:33 40 09/18/18 21:30 87 16 104/44 (64) 100 09/18/18 21:23 96 16 100 Mechanical Ventilator 40 09/18/18 21:21 97 16 40 09/18/18 21:00 87 22 98/29 (52) 100 09/18/18 20:30 103 17 118/53 (74) 100 09/18/18 20:21 99.9 09/18/18 20:00 40 09/18/18 20:00 Mechanical Ventilator 09/18/18 20:00 118 23 129/68 (88) 100 09/18/18 20:00 81 09/18/18 19:30 101.0 109 17 114/53 (73) 91 09/18/18 19:28 107 19 40 09/18/18 19:00 107 24 100/41 (60) 09/18/18 18:30 109 22 99/42 (61) 99 09/18/18 18:00 122 20 108/48 (68) 99 09/18/18 17:30 132 20 141/38 (72) 99 09/18/18 17:00 117 20 124/44 (70) 99 09/18/18 16:40 116 29 40 09/18/18 16:30 115 20 125/56 (79) 99 09/18/18 16:01 99.8 94 16 112/39 (63) 99 09/18/18 16:00 40 09/18/18 16:00 Mechanical Ventilator 09/18/18 16:00 106 20 127/60 (82) 99 09/18/18 15:30 94 16 112/39 (63) 99 09/18/18 15:30 93 09/18/18 15:10 92 16 40 09/18/18 15:00 91 17 110/44 (66) 96 09/18/18 14:30 87 16 115/41 (65) 98 09/18/18 14:00 84 17 102/35 (57) 100 09/18/18 13:30 81 16 101/36 (57) 100 09/18/18 13:00 84 16 106/32 (56) 100 09/18/18 12:50 92 16 40 09/18/18 12:30 96 18 116/72 (87) 100 09/18/18 12:00 81 09/18/18 12:00 98.2 80 16 110/40 (63) 96 09/18/18 12:00 40 09/18/18 12:00 Mechanical Ventilator Height (Feet): 5 Height (Inches): 8.00 Weight (Pounds): 211 HEENT: status post trach Respiratory/Chest: lungs clear Cardiovascular: normal rate, regular rhythm, no gallop/murmur Abdomen: soft, non tender, other - GT Extremities: no edema Microbiology Date/Time Source Procedure Growth Status 09/18/18 15:50 External Cath Urine Culture - Preliminary NO GROWTH Resulted Laboratory Tests Test 09/18/18 15:50 09/19/18 04:25 Urine Color Yellow Urine Appearance Cloudy Urine pH 5 (4.5-8.0) Urine Specific [place] 1.010 (1.005-1.035) Urine Protein 3+ (NEGATIVE) H Urine Glucose (UA) Negative (NEGATIVE) Urine Ketones 1+ (NEGATIVE) H Urine Blood 4+ (NEGATIVE) H Urine Nitrite Negative (NEGATIVE) Urine Bilirubin Negative (NEGATIVE) Urine Urobilinogen 1 MG/DL (0.0-1.0) H Urine Leukocyte Esterase 3+ (NEGATIVE) H Urine RBC 10-15 /HPF (0 - 0) H Urine WBC Tntc /HPF (0 - 0) H Urine Squamous Epithelial Cells Occasional /LPF Urine Bacteria Many /HPF (NONE) H Urine Yeast Many /HPF (NONE) H White Blood Count 13.8 K/UL (4.8-10.8) H Red Blood Count 2.51 M/UL (4.70-6.10) L Hemoglobin 7.8 G/DL (14.2-18.0) L Hematocrit 23.8 % (42.0-52.0) L Mean Corpuscular Volume 95 FL (80-99) Mean Corpuscular Hemoglobin 31.2 PG (27.0-31.0) H Mean Corpuscular Hemoglobin Concent 32.9 G/DL (32.0-36.0) Red Cell Distribution Width 14.3 % (11.6-14.8) Platelet Count 482 K/UL (150-450) H Mean Platelet Volume 5.3 FL (6.5-10.1) L Neutrophils (%) (Auto) % (45.0-75.0) Lymphocytes (%) (Auto) % (20.0-45.0) Monocytes (%) (Auto) % (1.0-10.0) Eosinophils (%) (Auto) % (0.0-3.0) Basophils (%) (Auto) % (0.0-2.0) Differential Total Cells Counted 100 Neutrophils % (Manual) 48 % (45-75) Lymphocytes % (Manual) 3 % (20-45) L Monocytes % (Manual) 8 % (1-10) Eosinophils % (Manual) 5 % (0-3) H Basophils % (Manual) 0 % (0-2) Band Neutrophils 36 % (0-8) H Platelet Estimate Increased H Platelet Morphology Normal Red Blood Cell Morphology Normal Sodium Level 143 MMOL/L (136-145) Potassium Level 3.9 MMOL/L (3.5-5.1) Chloride Level 105 MMOL/L (98-107) Carbon Dioxide Level 31 MMOL/L (21-32) Anion Gap 7 mmol/L (5-15) Blood Urea Nitrogen 21 mg/dL (7-18) H Creatinine 0.9 MG/DL (0.55-1.30) Estimat Glomerular Filtration Rate > 60 mL/min (>60) Glucose Level 137 MG/DL (74-106) H Calcium Level 9.5 MG/DL (8.5-10.1) Random Vancomycin Level 13.2 ug/mL Current Medications Medications (Trade) Dose Ordered Sig/Guillermo Route PRN Reason Start Time Stop Time Status Last Admin Dose Admin Acetaminophen (Tylenol) 650 mg Q4H PRN GT Mild Pain/Temp > 100.5 09/17/18 21:00 10/10/18 20:59 09/18/18 19:51 Amikacin Sulfate (Amikin) 500 mg Q12HR@10,22 INH 09/17/18 22:00 09/20/18 21:59 09/19/18 10:12 Aspirin (ASA) 81 mg DAILY GT 09/18/18 09:00 10/11/18 08:59 09/19/18 08:55 Bisacodyl (Dulcolax) 10 mg DAILYPRN PRN RECTAL Constipation 09/17/18 20:15 10/08/18 20:14 Carbamazepine (TEGretol) 400 mg Q8HR GT 09/17/18 22:00 10/09/18 08:59 09/19/18 05:39 Cefepime HCl 2 gm/ Dextrose 55 ml @ 110 mls/hr EVERY 12 HOURS IVPB 09/18/18 11:30 09/25/18 11:29 09/19/18 08:55 Dextrose (Dextrose 50%) 25 ml Q30M PRN IV Hypoglycemia 09/17/18 20:15 10/09/18 14:14 Dextrose (Dextrose 50%) 50 ml Q30M PRN IV Hypoglycemia 09/17/18 20:15 10/09/18 14:14 Epoetin Grabiel (Epoetin Grabiel-EPBX(NON ESRD)) 10,000 unit WED-WED-WED SUBQ 09/19/18 21:00 10/14/18 20:59 Ferrous Sulfate (Feosol) 300 mg BID GT 09/19/18 09:00 10/19/18 08:59 09/19/18 08:55 Insulin Aspart (NovoLOG) Q6HR SUBQ 09/18/18 00:00 10/09/18 17:59 09/19/18 05:47 Insulin Detemir (Levemir) 8 units Q12HR SUBQ 09/17/18 21:00 10/15/18 20:59 09/19/18 08:57 Levetiracetam (Keppra) 500 mg Q12HR GT 09/17/18 21:00 10/08/18 20:59 09/19/18 08:55 Lorazepam (Ativan 2mg/ml 1ml) 1 mg Q3H PRN IV For Anxiety 09/17/18 20:30 09/24/18 17:29 Magnesium Hydroxide (Mom) 30 ml DAILYPRN PRN GT Constipation 09/17/18 20:15 10/08/18 20:14 Metoclopramide HCl (Reglan) 10 mg Q6H PRN IVP Nausea & Vomiting 09/17/18 21:00 10/09/18 20:59 Midodrine (Pro-Amatine) 2.5 mg THREE TIMES A DAY GT 09/18/18 09:00 10/09/18 08:59 09/19/18 08:55 Propofol 100 ml @ 0 mls/hr Q24H IV 09/18/18 20:00 09/19/18 19:59 09/17/18 20:15 Valproic Acid (Depakene) 1,500 mg EVERY 12 HOURS GT 09/17/18 21:00 10/09/18 08:59 09/19/18 08:55 Vancomycin HCl (Vanco rx to dose) 1 ea DAILY PRN MISC Per rx protocol 09/18/18 10:00 10/18/18 09:59 Vancomycin HCl 1 gm/Dextrose 275 ml @ 183.708 mls/hr Q24H IVPB 09/19/18 10:00 09/24/18 09:59 09/19/18 11:19 Tracie Isaac MD Sep 19, 2018 11:42
--- NOTE | 2018-09-19 12:35 | NUR ---
TRANSFER TO FLOOR: Patient transferred to [facility] room 235-2, per Dr. Wakefield. No belongings. Family informed of transfer.
[2018-09-19] MEDS ORDERED: Acetaminophen 650mg/20.3ml GT PRN (12:46)
[2018-09-19] MEDS ORDERED: LORazepam Inj 2mg/ml 1ml IV PRN (12:48)
[2018-09-19] MEDS ORDERED: Metoclopramide 10mg/2ml Inj IVP PRN (12:49)
--- NOTE | 2018-09-19 13:49 | NUR ---
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 2) Difficulty swallowing R/T resp status as evidenced by pt vent dependent via trach w/PEG. 3) Altered nutrition related lab values R/T h/o DM, uncontrolled BGs as evidenced by POC glu (175-529-> now improved:110-174). CURRENT TF:Glucerna 1.5 @ 50ml/hr x 24 hrs ENTERAL NUTRITION RECOMMENDATIONS: Glucerna 1.5 @ 50ml/hr x 24 hrs to provide 1200ml, 1800kcal, 99g prot, 911ml free water * Maintain current TF * HOB >30 degrees/H20 flush per MD ADDITIONAL RECOMMENDATIONS: 1) PER SNF (09/07/18) pt is: 6'4" tall and 139# (63.2kg) 2) Wound care: Marcelino 1 pkt BID + Vit C 500mg QD 3) Monitor lytes, replete as needed 4) Weekly calibrated bed scale wts 5) Monitor BGs closely- improved BGs at this time 6) Monitor residuals- rec routine reglan (vs prn) if elev residuals cont to be seen.
--- NOTE | 2018-09-19 16:25 | NUR ---
NURSE NOTES: Received patient from PASHA Fletcher. Patient is obtunded. On trach Portex 8, AC:16, TV:600, FiO2:40% and PEEP:5 showing no signs and symptoms of pain and/or distress. GTube feeding running 1.5@ 50ml/hour. Will continue plan of care.
--- NOTE | 2018-09-19 17:35 | Diagnostic Imaging Report ---
Indication: Chest pain Comparison: 09/12/2018 A single view chest radiograph was obtained. Findings: Tracheostomy noted. Trachea is dilated. Lungs are clear. Heart size is normal and stable IMPRESSION: No acute findings. Stable.
[2018-09-19] MEDS: Ferrous Sulfate 300 MG/5 ML UDC GT SCH (18:08)
--- NOTE | 2018-09-19 19:49 | NUR ---
HAND-OFF: Report given to Nkechi Bonds RN. Patient stable at this time, afebrile, no seizures noted at this time.
[2018-09-19] MEDS ORDERED: Sterile Water For Irrig 2000ml IRRIG ONE (20:15)
[2018-09-19] MEDS ORDERED: Tubing IV Secondary IV ONE (20:15)
[2018-09-19] MEDS ORDERED: Tubing Blood Filter IV ONE (20:15)
[2018-09-19] MEDS ORDERED: NS 275ml ONE (20:15)
[2018-09-19] MEDS ORDERED: NS 500ML ONE (20:44)
[2018-09-19] MEDS ORDERED: Epoetin Alfa-EPBX (NON ESRD)10,000 unit/ml vial SUBQ SCH (21:00)
[2018-09-19] MEDS: Epoetin Alfa-EPBX (NON ESRD)10,000 unit/ml vial SUBQ SCH (21:39)
[2018-09-19] MEDS: Cefepime HCl 2 GM in D5W 55 ML IVPB SCH (21:39)
[2018-09-20] VITALS: BP 109/52
[2018-09-20 04:00] VITALS: BP 108/54
[2018-09-20] MEDS: carBAMazepine 200mg tab GT SCH ×3 (05:42→21:40)
[2018-09-20] MEDS: NovoLOG Insulin Flexpen SUBQ SCH ×3 (05:43→17:45)
--- NOTE | 2018-09-20 07:00 | NUR ---
Received Patient on Vent RR 16, VT 600, FIO2 40%, PEEP +5. Patient trached with a Portex 9, secured by trache ties. Bilateral rhonchi [place] throughout both lung rey. SX thin white secretions PRN. Patient currently lying comfortably in bed. Alarms on and audible. Vent plugged into red outlet. Will continue to monitor thought the day.
--- NOTE | 2018-09-20 07:15 | NUR ---
HAND-OFF: Report given to PASHA Ward.
--- NOTE | 2018-09-20 07:25 | NUR ---
NURSE NOTES: Received patient from PASHA Zapata. Patient VS stable at this time with no sign of acute distress. Patient eyes closed at this time. Patient opens eyes but does not track movement at this time. Patient trach to ventilator with setting of AC 16, TV 600, FiO2 40%, and PEEP 5. Patient tolerating setting with oxygen saturation of 99% at this time. Patient has G tube that is patent, asymptomatic, and running Glucerna 1.5 at 50mL/hr at this time. Patient tolerating feeding with no residual at this time. Patient has condom catheter at this time that is patent and draining at this time. Patient has sacral stage 2 pressure ulcer at this time. Patient is on pressure release mattress at this time. Patient has left hand 22G PIV and left forearm 22G PIV that are patent and saline locked at this time. Patient has discharge planning today. Will follow up. patient has a hgb of 7.8 at this time but the patient's family does not wish for the patient to receive transfusion at this time. Patient bed in low position with bed alarm on and call light in reach at this time.
[2018-09-20 08:00] VITALS: BP 112/60
--- NOTE | 2018-09-20 09:09 | General Progress Note ---
Assessment/Plan Assessment/Plan IMPRESSION respiratory failure trach seizures fever leukocytosis possible sepsis hematuria anemia PSVT PLAN ID evaluation noted antibiotics noted respiratory care ativan PRN for seizures oxygen seizure meds off amio and stable in SDU mother refuses transfusion due to gnosticist beliefs epogen sliding scale hope to stabilize further and dc if remains stable impression, plan, and exam edited and reviewed in detail care discussed with RN Subjective Allergies: Coded Allergies: No Known Allergies (Unverified , 07/21/16) Subjective care noted cultures noted ID noted hemodynamics stable currently stable Objective Last 24 Hour Vital Signs Date Time Temp Pulse Resp B/P (MAP) Pulse Ox O2 Delivery O2 Flow Rate FiO2 09/20/18 09:02 84 16 40 09/20/18 08:00 Mechanical Ventilator 09/20/18 08:00 40 09/20/18 07:44 97 09/20/18 07:28 79 16 40 09/20/18 05:12 87 16 40 09/20/18 04:00 Mechanical Ventilator 09/20/18 04:00 98.4 98 16 108/54 (72) 100 09/20/18 04:00 40 09/20/18 03:34 85 16 40 09/20/18 03:20 95 09/20/18 01:17 88 17 40 09/20/18 00:00 98.7 70 16 109/52 (71) 100 09/20/18 00:00 40 09/20/18 00:00 Mechanical Ventilator 09/19/18 23:31 97 09/19/18 22:39 89 16 40 09/19/18 22:09 90 16 100 Mechanical Ventilator 40 09/19/18 22:01 40 09/19/18 22:00 90 17 100 Mechanical Ventilator 40 09/19/18 21:59 90 17 40 09/19/18 20:00 40 09/19/18 20:00 Mechanical Ventilator 09/19/18 20:00 99.0 99 16 101/59 (73) 100 09/19/18 20:00 104 09/19/18 19:39 91 16 40 09/19/18 17:14 94 16 40 09/19/18 16:00 Mechanical Ventilator 09/19/18 16:00 97.9 94 18 93/58 (70) 98 09/19/18 16:00 40 09/19/18 14:47 91 16 40 09/19/18 13:13 89 17 40 09/19/18 12:57 95 09/19/18 12:00 Mechanical Ventilator 09/19/18 12:00 97.8 97 14 126/81 (96) 100 09/19/18 12:00 40 09/19/18 12:00 84 09/19/18 11:00 88 13 118/52 (74) 100 09/19/18 10:27 95 16 40 09/19/18 10:26 98 17 100 Mechanical Ventilator 40 09/19/18 10:13 77 17 96 Mechanical Ventilator 40 09/19/18 10:00 79 16 119/51 (73) 100 Intake and Output 09/19/18 09/20/18 18:59 06:59 Intake Total 1030.000 ml 905 ml Output Total 405 ml 600 ml Balance 625.000 ml 305 ml IV Total 330.000 ml 55 ml Tube Feeding 600 ml 600 ml Other 100 ml 250 ml Output Urine Total 405 ml 600 ml Height (Feet): 5 Height (Inches): 8.00 Weight (Pounds): 210 Objective WDWN NAD trach clear breath sounds bilaterally without rhonchi or wheeze [id number] without MRG NABS nontender no HSM no CC contracted poor LOC Gt Andres Wakefield MD Sep 20, 2018 09:09
[2018-09-20] MEDS: Valproic Acid 250mg/5ml Liquid GT SCH ×2 (09:11→21:39)
[2018-09-20] MEDS: Ferrous Sulfate 300 MG/5 ML UDC GT SCH ×2 (09:11→17:43)
[2018-09-20] MEDS: levETIRAcetam 500mg/5ml Liquid GT SCH ×2 (09:13→21:39)
[2018-09-20] MEDS: Aspirin Baby 81mg GT SCH (09:14)
[2018-09-20] MEDS: Cefepime HCl 2 GM in D5W 55 ML IVPB SCH ×2 (09:15→21:40)
[2018-09-20] MEDS: Levemir Flexpen SUBQ SCH ×2 (09:23→21:42)
[2018-09-20] MEDS: Amikacin for Inhalation 2ML INH SCH ×2 (09:33→22:00)
[2018-09-20] MEDS: Vancomycin 1 GM in D5W 275 ML IVPB SCH (10:36)
--- NOTE | 2018-09-20 10:51 | Infectious Diseases Prog Note ---
Assessment/Plan Assessment/Plan antibiotics : vancomycin iv, cefepime, inhaled amikacin A 1. pseudomonas pneumonia 2. fungal UTI 3. respiratory failure 4. CVA 5. seizures 6. fever P 1. continue iv vancomycin, cefepime, inhaled amikacin 2. start fluconazole 3. sputum culture 4. will follow up cultures Subjective ROS Limited/Unobtainable: Yes Allergies: Coded Allergies: No Known Allergies (Unverified , 07/21/16) Objective Vital Signs Last 24 Hour Vital Signs Date Time Temp Pulse Resp B/P (MAP) Pulse Ox O2 Delivery O2 Flow Rate FiO2 09/20/18 09:29 87 17 100 Mechanical Ventilator 40 09/20/18 09:21 40 09/20/18 09:21 89 16 98 Mechanical Ventilator 40 09/20/18 09:02 84 16 40 09/20/18 08:00 97.9 98 16 112/60 (77) 100 09/20/18 08:00 Mechanical Ventilator 09/20/18 08:00 40 09/20/18 07:44 97 09/20/18 07:28 79 16 40 09/20/18 05:12 87 16 40 09/20/18 04:00 Mechanical Ventilator 09/20/18 04:00 98.4 98 16 108/54 (72) 100 09/20/18 04:00 40 09/20/18 03:34 85 16 40 09/20/18 03:20 95 09/20/18 01:17 88 17 40 09/20/18 00:00 98.7 70 16 109/52 (71) 100 09/20/18 00:00 40 09/20/18 00:00 Mechanical Ventilator 09/19/18 23:31 97 09/19/18 22:39 89 16 40 09/19/18 22:09 90 16 100 Mechanical Ventilator 40 09/19/18 22:01 40 09/19/18 22:00 90 17 100 Mechanical Ventilator 40 09/19/18 21:59 90 17 40 09/19/18 20:00 40 09/19/18 20:00 Mechanical Ventilator 09/19/18 20:00 99.0 99 16 101/59 (73) 100 09/19/18 20:00 104 09/19/18 19:39 91 16 40 09/19/18 17:14 94 16 40 09/19/18 16:00 Mechanical Ventilator 09/19/18 16:00 97.9 94 18 93/58 (70) 98 09/19/18 16:00 40 09/19/18 14:47 91 16 40 09/19/18 13:13 89 17 40 09/19/18 12:57 95 09/19/18 12:00 Mechanical Ventilator 09/19/18 12:00 97.8 97 14 126/81 (96) 100 09/19/18 12:00 40 09/19/18 12:00 84 09/19/18 11:00 88 13 118/52 (74) 100 Height (Feet): 5 Height (Inches): 8.00 Weight (Pounds): 210 HEENT: status post trach Respiratory/Chest: lungs clear Cardiovascular: normal rate, regular rhythm, no gallop/murmur Abdomen: soft, non tender, other - GT Extremities: no edema Microbiology Date/Time Source Procedure Growth Status 09/18/18 15:50 External Cath Urine Culture - Preliminary YEAST Resulted Current Medications Medications (Trade) Dose Ordered Sig/Guillermo Route PRN Reason Start Time Stop Time Status Last Admin Dose Admin Acetaminophen (Tylenol) 650 mg Q4H PRN GT Mild Pain/Temp > 100.5 09/19/18 12:46 10/10/18 12:45 Amikacin Sulfate (Amikin) 500 mg Q12HR@10,22 INH 09/19/18 22:00 09/20/18 21:59 09/20/18 09:33 Aspirin (ASA) 81 mg DAILY GT 09/20/18 09:00 10/11/18 08:59 09/20/18 09:14 Bisacodyl (Dulcolax) 10 mg DAILYPRN PRN RECTAL Constipation 09/19/18 12:46 10/19/18 12:45 Carbamazepine (TEGretol) 400 mg Q8HR GT 09/19/18 14:00 10/09/18 08:59 09/20/18 05:42 Cefepime HCl 2 gm/ Dextrose 55 ml @ 110 mls/hr EVERY 12 HOURS IVPB 09/19/18 21:00 09/25/18 11:29 09/20/18 09:15 Dextrose (Dextrose 50%) 25 ml Q30M PRN IV Hypoglycemia 09/19/18 12:45 10/09/18 14:14 Dextrose (Dextrose 50%) 50 ml Q30M PRN IV Hypoglycemia 09/19/18 12:45 10/09/18 14:14 Epoetin Grabiel (Epoetin Grabiel-EPBX(NON ESRD)) 10,000 unit MON-WED-WED SUBQ 09/19/18 21:00 10/14/18 20:59 09/19/18 21:39 Ferrous Sulfate (Feosol) 300 mg BID GT 09/19/18 18:00 10/19/18 08:59 09/20/18 09:11 Insulin Aspart (NovoLOG) Q6HR SUBQ 09/19/18 18:00 10/09/18 17:59 09/20/18 05:43 Insulin Detemir (Levemir) 8 units Q12HR SUBQ 09/19/18 21:00 10/15/18 20:59 09/20/18 09:23 Levetiracetam (Keppra) 500 mg Q12HR GT 09/19/18 21:00 10/08/18 20:59 09/20/18 09:13 Lorazepam (Ativan 2mg/ml 1ml) 1 mg Q3H PRN IV For Anxiety 09/19/18 12:48 09/24/18 12:47 Magnesium Hydroxide (Mom) 30 ml DAILYPRN PRN GT Constipation 09/19/18 12:49 10/08/18 12:48 Metoclopramide HCl (Reglan) 10 mg Q6H PRN IVP Nausea & Vomiting 09/19/18 12:49 10/09/18 12:48 Midodrine (Pro-Amatine) 2.5 mg THREE TIMES A DAY GT 09/19/18 13:00 10/09/18 08:59 09/20/18 09:14 Valproic Acid (Depakene) 1,500 mg EVERY 12 HOURS GT 09/19/18 21:00 10/09/18 08:59 09/20/18 09:11 Vancomycin HCl (Vanco rx to dose) 1 ea DAILY PRN MISC Per rx protocol 09/20/18 09:00 10/18/18 09:59 Vancomycin HCl 1 gm/Dextrose 275 ml @ 183.708 mls/hr Q24H IVPB 09/20/18 10:00 09/24/18 09:59 09/20/18 10:36 Tracie Isaac MD Sep 20, 2018 10:50
[2018-09-20] MEDS: Fluconazole 100mg tab ORAL SCH (11:14)
[2018-09-20 12:00] VITALS: BP 132/83
[2018-09-20 16:00] VITALS: BP 119/64
--- NOTE | 2018-09-20 19:10 | NUR ---
HAND-OFF: Report given to PASHA Wallace. Patient VS stable with no sign of acute distress.
--- NOTE | 2018-09-20 19:15 | NUR ---
NURSE NOTES: Received patient from ADALGISA PAK.Obtunded,Trach to vent dependent with settings of AC 16 TV 600 FIO2 40% PEEP 5 and sating 99-100%. no respiratory distress noted. SR on monitor. vs stable. afebrile. GT feeding with Glucerna 1.5 at 50cc/hr with 50cc of residual noted. HOB elevated. no sign of pain at this time. condom cath in place with yellow urine draining well. contact isolation maintained and observed.bed in low position with bed alarm on.will resume plan of care.
[2018-09-20 20:00] VITALS: BP 105/57
[2018-09-21] VITALS: BP 99/57
[2018-09-21] MEDS: NovoLOG Insulin Flexpen SUBQ SCH ×4 (00:11→17:53)
--- NOTE | 2018-09-21 02:14 | NUR ---
NURSE NOTES: Tolerating well with current vent settings. o2 saturation is 98-100%.no acute distress noted. no facial grimace or moaning. vs stable. GT feeding well with no residual noted. HOB elevated.suctioned with large amount of white thick secretions via trach and orally. oral care done. keep patient comfortable.
[2018-09-21 04:00] VITALS: BP 103/66
[2018-09-21] MEDS: carBAMazepine 200mg tab GT SCH ×3 (05:56→22:02)
--- NOTE | 2018-09-21 07:18 | NUR ---
HAND-OFF: Report given to PASHA DIANA at bedside using SBAR. patient remains stable in condition. Afebrile.
--- NOTE | 2018-09-21 07:19 | NUR ---
NURSE NOTES: Received patient from PASHA Wallace. Patient VS stable at this time with no sign of acute distress. Patient is obtunded. Patient opens eyes and does not track. Patient appears to be sleeping at this time. Patient is showing Sinus rhythm on the monitor. Patient is on trach to ventilator with setting of AC 16, TV 600, FiO2 40%, and PEEP 5. Patient tolerating setting with 100% oxygen saturation. Patient has G tube that is patent and asymptomatic and running Glucerna 1.2 at 50ml/hr at this time. Patient is tolerating feeding with minimal residual at this time. The last residual was 0mL. Patient has a condom catheter that is patent and asymptomatic at this time. Patient has not had a BM since 09/17. Will give stool softener or ask the doctor for an order for stool softener. Patient has a sacral stage 2 pressure ulcer that is covered with Optifoam at this time. Patient is on pressure release mattress at this time. Patient has bilateral heel Optifoam to protect heels from pressure injury. Patient will be turned every 2 hours and as needed. Patient has a left hand 22G PIV that is patent ans asymptomatic at this time. Patient has a left Forearm 22G PIV that is patent and asymptomatic at this time. Patient has a vanco trough at 9am this morning. Will follow up. Patient bed in low position with bed alarm on and call light in reach at this time.
[2018-09-21 08:00] VITALS: BP 122/65
[2018-09-21] MEDS: Cefepime HCl 2 GM in D5W 55 ML IVPB SCH ×2 (09:25→22:01)
[2018-09-21] MEDS: Aspirin Baby 81mg GT SCH (09:26)
[2018-09-21] MEDS: Fluconazole 100mg tab ORAL SCH (09:26)
[2018-09-21] MEDS: Ferrous Sulfate 300 MG/5 ML UDC GT SCH ×2 (09:31→17:52)
[2018-09-21] MEDS: Valproic Acid 250mg/5ml Liquid GT SCH ×2 (09:32→22:01)
[2018-09-21] MEDS: levETIRAcetam 500mg/5ml Liquid GT SCH ×2 (09:33→22:02)
[2018-09-21] MEDS: Levemir Flexpen SUBQ SCH ×2 (09:42→22:03)
--- NOTE | 2018-09-21 10:22 | NUR ---
NURSE NOTES: Vanco due now, but the vanco trough is still pending at this time. Pharmacy reports that the medication can continue to be held until the vanco trough is resulted.
--- NOTE | 2018-09-21 10:27 | Infectious Diseases Prog Note ---
Assessment/Plan Assessment/Plan antibiotics : vancomycin iv, cefepime, inhaled amikacin A 1. pseudomonas pneumonia 2. fungal UTI 3. respiratory failure 4. CVA 5. seizures 6. fever P 1. continue iv vancomycin, cefepime, inhaled amikacin 2. continue fluconazole 3. will follow up cultures Subjective ROS Limited/Unobtainable: Yes Allergies: Coded Allergies: No Known Allergies (Unverified , 07/21/16) Objective Vital Signs Last 24 Hour Vital Signs Date Time Temp Pulse Resp B/P (MAP) Pulse Ox O2 Delivery O2 Flow Rate FiO2 09/21/18 08:00 98.3 97 16 122/65 (84) 99 09/21/18 07:29 80 16 40 09/21/18 05:05 91 16 40 09/21/18 04:00 98.6 96 16 103/66 (78) 99 09/21/18 04:00 Mechanical Ventilator 09/21/18 04:00 40 09/21/18 04:00 95 09/21/18 03:46 98 16 40 09/21/18 01:49 83 16 40 09/21/18 00:00 98.2 96 16 99/57 (71) 99 09/21/18 00:00 Mechanical Ventilator 09/21/18 00:00 40 09/21/18 00:00 96 09/20/18 23:14 81 16 40 09/20/18 22:27 92 19 100 Mechanical Ventilator 40 09/20/18 22:01 86 16 99 Mechanical Ventilator 40 09/20/18 21:25 78 16 40 09/20/18 20:00 97.3 86 16 105/57 (73) 100 09/20/18 20:00 40 09/20/18 20:00 Mechanical Ventilator 09/20/18 20:00 93 09/20/18 19:20 83 16 40 09/20/18 17:05 81 16 40 09/20/18 16:00 102 09/20/18 16:00 Mechanical Ventilator 09/20/18 16:00 98.2 105 18 119/64 (82) 99 09/20/18 16:00 40 09/20/18 15:20 80 16 40 09/20/18 12:53 79 16 40 09/20/18 12:05 107 09/20/18 12:00 40 09/20/18 12:00 Mechanical Ventilator 09/20/18 12:00 98.2 103 16 132/83 (99) 100 09/20/18 10:54 76 16 40 Height (Feet): 5 Height (Inches): 8.00 Weight (Pounds): 209 HEENT: status post trach Respiratory/Chest: lungs clear Cardiovascular: normal rate, regular rhythm, no gallop/murmur Abdomen: soft, non tender, other - GT Extremities: no edema Microbiology Date/Time Source Procedure Growth Status 09/18/18 15:50 External Cath Urine Culture - Final Xenia Tropicalis Complete Laboratory Tests Test 09/21/18 09:00 Vancomycin Level Trough Pending Current Medications Medications (Trade) Dose Ordered Sig/Guillermo Route PRN Reason Start Time Stop Time Status Last Admin Dose Admin Acetaminophen (Tylenol) 650 mg Q4H PRN GT Mild Pain/Temp > 100.5 09/19/18 12:46 10/10/18 12:45 Amikacin Sulfate (Amikin) 500 mg Q12HR@10,22 INH 09/19/18 22:00 09/21/18 21:59 09/20/18 22:00 Aspirin (ASA) 81 mg DAILY GT 09/20/18 09:00 10/11/18 08:59 09/21/18 09:26 Bisacodyl (Dulcolax) 10 mg DAILYPRN PRN RECTAL Constipation 09/19/18 12:46 10/19/18 12:45 Carbamazepine (TEGretol) 400 mg Q8HR GT 09/19/18 14:00 10/09/18 08:59 09/21/18 05:56 Cefepime HCl 2 gm/ Dextrose 55 ml @ 110 mls/hr EVERY 12 HOURS IVPB 09/19/18 21:00 09/25/18 11:29 09/21/18 09:25 Dextrose (Dextrose 50%) 25 ml Q30M PRN IV Hypoglycemia 09/19/18 12:45 10/09/18 14:14 Dextrose (Dextrose 50%) 50 ml Q30M PRN IV Hypoglycemia 09/19/18 12:45 10/09/18 14:14 Epoetin Grabiel (Epoetin Grabiel-EPBX(NON ESRD)) 10,000 unit MON-WED-FRI SUBQ 09/19/18 21:00 10/14/18 20:59 09/19/18 21:39 Ferrous Sulfate (Feosol) 300 mg BID GT 09/19/18 18:00 10/19/18 08:59 09/21/18 09:31 Fluconazole (Diflucan) 100 mg DAILY ORAL 09/20/18 11:00 09/27/18 10:59 09/21/18 09:26 Insulin Aspart (NovoLOG) Q6HR SUBQ 09/19/18 18:00 10/09/18 17:59 09/21/18 05:57 Insulin Detemir (Levemir) 8 units Q12HR SUBQ 09/19/18 21:00 10/15/18 20:59 09/21/18 09:42 Levetiracetam (Keppra) 500 mg Q12HR GT 09/19/18 21:00 10/08/18 20:59 09/21/18 09:33 Lorazepam (Ativan 2mg/ml 1ml) 1 mg Q3H PRN IV For Anxiety 09/19/18 12:48 09/24/18 12:47 Magnesium Hydroxide (Mom) 30 ml DAILYPRN PRN GT Constipation 09/19/18 12:49 10/08/18 12:48 Metoclopramide HCl (Reglan) 10 mg Q6H PRN IVP Nausea & Vomiting 09/19/18 12:49 10/09/18 12:48 Midodrine (Pro-Amatine) 2.5 mg THREE TIMES A DAY GT 09/19/18 13:00 10/09/18 08:59 09/21/18 09:33 Valproic Acid (Depakene) 1,500 mg EVERY 12 HOURS GT 09/19/18 21:00 10/09/18 08:59 09/21/18 09:32 Vancomycin HCl (Vanco rx to dose) 1 ea DAILY PRN MISC Per rx protocol 09/20/18 09:00 10/18/18 09:59 Vancomycin HCl 1 gm/Dextrose 275 ml @ 183.708 mls/hr Q24H IVPB 09/20/18 10:00 09/24/18 09:59 09/20/18 10:36 Tracie Isaac MD Sep 21, 2018 10:27
[2018-09-21] MEDS: Amikacin for Inhalation 2ML INH SCH ×2 (10:31→21:36)
[2018-09-21] MEDS: Vancomycin 1 GM in D5W 275 ML IVPB SCH (11:08)
[2018-09-21 12:00] VITALS: BP 102/58
--- NOTE | 2018-09-21 12:50 | NUR ---
RESPIRATORY NOTE:Received pt on current vent settings. pt has a signs 9 portex trach. Pt has moderate amount of secretions coming from trach stoma and trachea suctioning. No s/s of distress. Vent alarms are on and audible. Will cont. to monitor pt.
[2018-09-21] MEDS: Milk of Magnesia 30ml Ud GT PRN (15:30)
--- NOTE | 2018-09-21 15:34 | NUR ---
NURSE NOTES: Patient given milk of magnesia. Patient has not had a BM since 09/17.
[2018-09-21 16:00] VITALS: BP 127/74
--- NOTE | 2018-09-21 16:13 | NUR ---
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 98.3 HR 97 RR 16 B/P 122/65 AC 16 TV 600 FIO2 40% PEEP 5 WBC 13.8 H/H 7.8/23.8 IS: VANCO IV CEFEPIME IV HEP SUBC STEP DOWN STATUS
--- NOTE | 2018-09-21 19:25 | NUR ---
HAND-OFF: Report given to PASHA Israel. Patient VS stable at this time with no sign of acute distress.
--- NOTE | 2018-09-21 19:26 | NUR ---
NURSE NOTES: Received bedside report from PASHA Ward.Patient stable,obtunded,ST on desk monitor,Portex 8 with setting AC16 TV 600 FiO2 40% PEEP 5 tolerated well,GT on hold with Glucerna 1.5 d/t [id number], goal 50 ml/hr,no s/s of pain,no respiratory distress noted,will continue to monitor and follow POC
[2018-09-21 20:00] VITALS: BP 101/60
--- NOTE | 2018-09-21 21:16 | Pulmonology Progress Note ---
Assessment/Plan Assessment/Plan Pulmonary Progress Note Assessment/Plan IMPRESSION respiratory failure trach seizures fever leukocytosis possible sepsis hematuria anemia PLAN ID following respiratory care oxygen seizure meds monitor mother refuses transfusion due to taoist beliefs - RIVER de jesus sliding scale repeat labs impression, plan, and exam edited and reviewed in detail care discussed with RN Subjective ROS Limited/Unobtainable: Yes Allergies: Coded Allergies: No Known Allergies (Unverified , 07/21/16) Subjective care noted cultures noted ID noted Objective Vital Signs Noted Laboratory Tests 09/14/18 09:15: White Blood Count 11.8H, Red Blood Count 2.31L, Hemoglobin 7.1L, Hematocrit 21.6L, Mean Corpuscular Volume 93, Mean Corpuscular Hemoglobin 30.8, Mean Corpuscular Hemoglobin Concent 32.9, Red Cell Distribution Width 12.7, Platelet Count 301, Mean Platelet Volume 6.1L, Neutrophils (%) (Auto) , Lymphocytes (%) ( Auto) , Monocytes (%) (Auto) , Eosinophils (%) (Auto) , Basophils (%) (Auto) , Differential Total Cells Counted 100, Neutrophils % (Manual) 85H, Lymphocytes % (Manual) 6L, Monocytes % (Manual) 8, Eosinophils % (Manual) 1, Basophils % ( Manual) 0, Band Neutrophils 0, Platelet Estimate Adequate, Platelet Morphology Normal, Hypochromasia 1+, Iron Level 33L, Total Iron Binding Capacity 116L, Percent Iron Saturation 28, Unsaturated Iron Binding 83L, Ferritin 630H 09/15/18 04:50: Sodium Level 142, Potassium Level 2.5*L, Chloride Level 102, Carbon Dioxide Level 31, Anion Gap 9, Blood Urea Nitrogen 19H, Creatinine 1.0, Estimat Glomerular Filtration Rate > 60, Glucose Level 122H, Calcium Level 9.2 Height (Feet): 5 Height (Inches): 8.00 Weight (Pounds): 203 Objective WDWN NAD trach clear breath sounds bilaterally without rhonchi or wheeze [id number] without MRG NABS nontender no HSM no CC contracted poor LOC Gt Subjective ROS Limited/Unobtainable: No Allergies: Coded Allergies: No Known Allergies (Unverified , 07/21/16) Objective Last 24 Hour Vital Signs Date Time Temp Pulse Resp B/P (MAP) Pulse Ox O2 Delivery O2 Flow Rate FiO2 09/21/18 18:40 84 16 40 09/21/18 17:05 90 16 40 09/21/18 16:00 98.7 98 16 127/74 (91) 100 09/21/18 16:00 Mechanical Ventilator 09/21/18 16:00 92 09/21/18 16:00 40 09/21/18 14:42 83 16 40 09/21/18 12:50 81 16 40 09/21/18 12:00 40 09/21/18 12:00 Mechanical Ventilator 09/21/18 12:00 98.5 95 16 102/58 (73) 99 09/21/18 12:00 90 09/21/18 10:46 88 16 40 09/21/18 09:59 92 18 100 Mechanical Ventilator 40 09/21/18 09:50 9 16 99 Mechanical Ventilator 40 09/21/18 09:15 84 16 40 09/21/18 08:00 98.3 97 16 122/65 (84) 99 09/21/18 08:00 Mechanical Ventilator 09/21/18 08:00 40 09/21/18 07:40 98 09/21/18 07:29 80 16 40 09/21/18 05:05 91 16 40 09/21/18 04:00 98.6 96 16 103/66 (78) 99 09/21/18 04:00 Mechanical Ventilator 09/21/18 04:00 40 09/21/18 04:00 95 09/21/18 03:46 98 16 40 09/21/18 01:49 83 16 40 09/21/18 00:00 98.2 96 16 99/57 (71) 99 09/21/18 00:00 Mechanical Ventilator 09/21/18 00:00 40 09/21/18 00:00 96 09/20/18 23:14 81 16 40 09/20/18 22:27 92 19 100 Mechanical Ventilator 40 09/20/18 22:01 86 16 99 Mechanical Ventilator 40 09/20/18 21:25 78 16 40 Intake and Output 09/20/18 09/21/18 19:00 07:00 Intake Total 1000.000 ml 860 ml Output Total 700 ml 700 ml Balance 300.000 ml 160 ml Intake Free Water 150 ml IV Total 330.000 ml 110 ml Tube Feeding 500 ml 600 ml Other 170 ml Output Urine Total 700 ml 700 ml Microbiology Date/Time Source Procedure Growth Status 09/20/18 11:25 Sputum Gram Stain - Final Resulted 09/20/18 11:25 Sputum Sputum Culture Pending Resulted Laboratory Tests 09/21/18 09:00: Vancomycin Level Trough 6.8 Current Medications Medications (Trade) Dose Ordered Sig/Guillermo Route PRN Reason Start Time Stop Time Status Last Admin Dose Admin Acetaminophen (Tylenol) 650 mg Q4H PRN GT Mild Pain/Temp > 100.5 09/19/18 12:46 10/10/18 12:45 Amikacin Sulfate (Amikin) 500 mg Q12HR@10,22 INH 09/19/18 22:00 09/28/18 21:59 09/21/18 10:31 Aspirin (ASA) 81 mg DAILY GT 09/20/18 09:00 10/11/18 08:59 09/21/18 09:26 Bisacodyl (Dulcolax) 10 mg DAILYPRN PRN RECTAL Constipation 09/19/18 12:46 10/19/18 12:45 Carbamazepine (TEGretol) 400 mg Q8HR GT 09/19/18 14:00 10/09/18 08:59 09/21/18 13:37 Cefepime HCl 2 gm/ Dextrose 55 ml @ 110 mls/hr EVERY 12 HOURS IVPB 09/19/18 21:00 09/25/18 11:29 09/21/18 09:25 Dextrose (Dextrose 50%) 25 ml Q30M PRN IV Hypoglycemia 09/19/18 12:45 10/09/18 14:14 Dextrose (Dextrose 50%) 50 ml Q30M PRN IV Hypoglycemia 09/19/18 12:45 10/09/18 14:14 Epoetin Grabiel (Epoetin Grabiel-EPBX(NON ESRD)) 10,000 unit WED-WED-WED SUBQ 09/19/18 21:00 10/14/18 20:59 09/19/18 21:39 Ferrous Sulfate (Feosol) 300 mg BID GT 09/19/18 18:00 10/19/18 08:59 09/21/18 17:52 Fluconazole (Diflucan) 100 mg DAILY ORAL 09/20/18 11:00 09/27/18 10:59 09/21/18 09:26 Insulin Aspart (NovoLOG) Q6HR SUBQ 09/19/18 18:00 10/09/18 17:59 09/21/18 17:53 Insulin Detemir (Levemir) 8 units Q12HR SUBQ 09/19/18 21:00 10/15/18 20:59 09/21/18 09:42 Levetiracetam (Keppra) 500 mg Q12HR GT 09/19/18 21:00 10/08/18 20:59 09/21/18 09:33 Lorazepam (Ativan 2mg/ml 1ml) 1 mg Q3H PRN IV For Anxiety 09/19/18 12:48 09/24/18 12:47 Magnesium Hydroxide (Mom) 30 ml DAILYPRN PRN GT Constipation 09/19/18 12:49 10/08/18 12:48 09/21/18 15:30 Metoclopramide HCl (Reglan) 10 mg Q6H PRN IVP Nausea & Vomiting 09/19/18 12:49 10/09/18 12:48 Midodrine (Pro-Amatine) 2.5 mg THREE TIMES A DAY GT 09/19/18 13:00 10/09/18 08:59 09/21/18 17:51 Valproic Acid (Depakene) 1,500 mg EVERY 12 HOURS GT 09/19/18 21:00 10/09/18 08:59 09/21/18 09:32 Vancomycin HCl (Vanco rx to dose) 1 ea DAILY PRN MISC Per rx protocol 09/20/18 09:00 10/18/18 09:59 Vancomycin HCl 1 gm/Dextrose 275 ml @ 183.708 mls/hr Q12HR@1000,2200 IVPB 09/21/18 22:00 09/26/18 21:59 Jl Ash MD Sep 21, 2018 21:16
[2018-09-21] MEDS: Vancomycin 1gm/D5W 275ml IVPB SCH ×2 (22:01)
[2018-09-21] MEDS: Epoetin Alfa-EPBX (NON ESRD)10,000 unit/ml vial SUBQ SCH (22:01)
[2018-09-22] VITALS: BP 102/68
[2018-09-22] MEDS: NovoLOG Insulin Flexpen SUBQ SCH ×4 (00:26→17:23)
--- NOTE | 2018-09-22 01:00 | NUR ---
HAND-OFF: Report given to PASHA Wallace.Patient stable.
--- NOTE | 2018-09-22 01:10 | NUR ---
NURSE NOTES: Received patient from PASHA ZACARIAS.Asleep in bed with no respiratory distress noted. o2 saturation 95-99%. SR on monitor. vs stable. afebrile. Turned and repositioned with pillows support. no sign of pain at this time.suctioned with large amount of thick secretions. oral care done. will continue to monitor.
[2018-09-22 04:00] VITALS: BP 113/63
[2018-09-22] MEDS: carBAMazepine 200mg tab GT SCH ×3 (05:58→21:53)
--- NOTE | 2018-09-22 07:34 | NUR ---
RESPIRATORY NOTE: Patient received mechanically ventilated on PB840 with current ordered vent settings. Patient has trach size Portex 9.0 cuffed that i secured with a trach tie and guard. Patient presents with bilateral coarse breath sounds. Suctioned small amount of thick clear and white secretions without incident. Chilo alarms are functional and audible. There is an ambu bag available a the bedside and the vent is connected to a red outlet. There are no signs and symptoms of respiratory distress or shortness of breath noted. Patient appears comfortable at this time. Will continue to monitor.
--- NOTE | 2018-09-22 07:47 | NUR ---
NURSE NOTES: Report received from PASHA Wallace. Observed patient in bed sleeping. Pt. is obtunded. On ventilator with previous setting with no acute distress noted. GT site intact with ongoing feeding. HOB elevated. Condom cath intact and draining well. IV site intact and patent. No s/s of pain at this time. Bed in lowest position. Call light within reach. Will continue to monitor.
--- NOTE | 2018-09-22 07:52 | NUR ---
HAND-OFF: Report given to PASHA SHEFFIELD using SBAR.patient remains stable condition.
[2018-09-22 08:00] VITALS: BP 109/65
[2018-09-22] MEDS: Amikacin for Inhalation 2ML INH SCH ×2 (08:08→21:37)
[2018-09-22] MEDS: levETIRAcetam 500mg/5ml Liquid GT SCH ×2 (08:43→21:53)
[2018-09-22] MEDS: Ferrous Sulfate 300 MG/5 ML UDC GT SCH ×2 (08:43→17:27)
[2018-09-22] MEDS: Fluconazole 100mg tab ORAL SCH (08:43)
[2018-09-22] MEDS: Valproic Acid 250mg/5ml Liquid GT SCH ×2 (08:43→21:52)
[2018-09-22] MEDS: Aspirin Baby 81mg GT SCH (08:43)
[2018-09-22] MEDS: Cefepime HCl 2 GM in D5W 55 ML IVPB SCH ×2 (08:44→21:52)
[2018-09-22] MEDS: Levemir Flexpen SUBQ SCH ×2 (08:45→21:55)
[2018-09-22] MEDS: Vancomycin 1gm/D5W 275ml IVPB SCH ×4 (10:00→22:55)
--- NOTE | 2018-09-22 11:03 | Infectious Diseases Prog Note ---
Assessment/Plan Assessment/Plan A; Sepsis Xenia UTI ? pneumonia VDRF s/p CVA P: Continue Amikacin inhaler, Fluconazole IV Vancomycin & Cefepime will f/u sputum culture Abdominal US Subjective ROS Limited/Unobtainable: Yes Constitutional: Reports: no symptoms Allergies: Coded Allergies: No Known Allergies (Unverified , 07/21/16) Objective Vital Signs Last 24 Hour Vital Signs Date Time Temp Pulse Resp B/P (MAP) Pulse Ox O2 Delivery O2 Flow Rate FiO2 09/22/18 09:22 86 16 40 09/22/18 08:18 86 16 95 Mechanical Ventilator 40 09/22/18 08:08 95 17 95 Mechanical Ventilator 40 09/22/18 08:00 98.5 96 16 109/65 (80) 97 09/22/18 08:00 95 09/22/18 08:00 40 09/22/18 08:00 Mechanical Ventilator 09/22/18 07:29 95 17 40 09/22/18 05:15 85 16 40 09/22/18 04:00 40 09/22/18 04:00 Mechanical Ventilator 09/22/18 04:00 97.4 88 16 113/63 (80) 96 09/22/18 04:00 92 09/22/18 02:58 83 16 40 09/22/18 00:52 98 16 40 09/22/18 00:00 98.8 92 20 102/68 (79) 97 09/22/18 00:00 Mechanical Ventilator 09/21/18 23:25 90 09/21/18 23:00 86 16 40 09/21/18 21:46 95 16 100 Mechanical Ventilator 40 09/21/18 21:36 99 19 100 Mechanical Ventilator 40 09/21/18 21:30 99 18 40 09/21/18 20:00 98.2 97 19 101/60 (74) 95 09/21/18 20:00 40 09/21/18 20:00 Mechanical Ventilator 09/21/18 20:00 Mechanical Ventilator 09/21/18 19:01 95 09/21/18 18:40 84 16 40 09/21/18 17:05 90 16 40 09/21/18 16:00 98.7 98 16 127/74 (91) 100 09/21/18 16:00 Mechanical Ventilator 09/21/18 16:00 92 09/21/18 16:00 40 09/21/18 14:42 83 16 40 09/21/18 12:50 81 16 40 09/21/18 12:00 40 09/21/18 12:00 Mechanical Ventilator 09/21/18 12:00 98.5 95 16 102/58 (73) 99 09/21/18 12:00 90 Height (Feet): 5 Height (Inches): 8.00 Weight (Pounds): 209 General Appearance: no acute distress HEENT: status post trach Respiratory/Chest: rhonchi - bilaterally, other - on ventilator Abdomen: soft, non tender, other - GT feeding Extremities: no edema Skin: ulcers Microbiology Date/Time Source Procedure Growth Status 09/20/18 11:25 Sputum Gram Stain - Final Resulted 09/20/18 11:25 Sputum Culture - Preliminary Gram Negative Bacillus 1 Resulted Current Medications Medications (Trade) Dose Ordered Sig/Guillermo Route PRN Reason Start Time Stop Time Status Last Admin Dose Admin Acetaminophen (Tylenol) 650 mg Q4H PRN GT Mild Pain/Temp > 100.5 09/19/18 12:46 10/10/18 12:45 Amikacin Sulfate (Amikin) 500 mg Q12HR@10,22 INH 09/19/18 22:00 09/28/18 21:59 09/22/18 08:08 Aspirin (ASA) 81 mg DAILY GT 09/20/18 09:00 10/11/18 08:59 09/22/18 08:43 Bisacodyl (Dulcolax) 10 mg DAILYPRN PRN RECTAL Constipation 09/19/18 12:46 10/19/18 12:45 Carbamazepine (TEGretol) 400 mg Q8HR GT 09/19/18 14:00 10/09/18 08:59 09/22/18 05:58 Cefepime HCl 2 gm/ Dextrose 55 ml @ 110 mls/hr EVERY 12 HOURS IVPB 09/19/18 21:00 09/25/18 11:29 09/22/18 08:44 Dextrose (Dextrose 50%) 25 ml Q30M PRN IV Hypoglycemia 09/19/18 12:45 10/09/18 14:14 Dextrose (Dextrose 50%) 50 ml Q30M PRN IV Hypoglycemia 09/19/18 12:45 10/09/18 14:14 Epoetin Grabiel (Epoetin Grabiel-EPBX(NON ESRD)) 10,000 unit MON-WED-WED SUBQ 09/19/18 21:00 10/14/18 20:59 09/21/18 22:01 Ferrous Sulfate (Feosol) 300 mg BID GT 09/19/18 18:00 10/19/18 08:59 09/22/18 08:43 Fluconazole (Diflucan) 100 mg DAILY ORAL 09/20/18 11:00 09/27/18 10:59 09/22/18 08:43 Insulin Aspart (NovoLOG) Q6HR SUBQ 09/19/18 18:00 10/09/18 17:59 09/22/18 05:56 Insulin Detemir (Levemir) 8 units Q12HR SUBQ 09/19/18 21:00 10/15/18 20:59 09/22/18 08:45 Levetiracetam (Keppra) 500 mg Q12HR GT 09/19/18 21:00 10/08/18 20:59 09/22/18 08:43 Lorazepam (Ativan 2mg/ml 1ml) 1 mg Q3H PRN IV For Anxiety 09/19/18 12:48 09/24/18 12:47 Magnesium Hydroxide (Mom) 30 ml DAILYPRN PRN GT Constipation 09/19/18 12:49 10/08/18 12:48 09/21/18 15:30 Metoclopramide HCl (Reglan) 10 mg Q6H PRN IVP Nausea & Vomiting 09/19/18 12:49 10/09/18 12:48 Midodrine (Pro-Amatine) 2.5 mg THREE TIMES A DAY GT 09/19/18 13:00 10/09/18 08:59 09/22/18 08:43 Valproic Acid (Depakene) 1,500 mg EVERY 12 HOURS GT 09/19/18 21:00 10/09/18 08:59 09/22/18 08:43 Vancomycin HCl (Vanco rx to dose) 1 ea DAILY PRN MISC Per rx protocol 09/20/18 09:00 10/18/18 09:59 Vancomycin HCl 1 gm/Dextrose 275 ml @ 183.708 mls/hr Q12HR@1000,2200 IVPB 09/21/18 22:00 2/25/19 21:59 09/22/18 10:00 John Elizalde MD Sep 22, 2018 11:03
[2018-09-22 12:00] VITALS: BP 101/66
--- NOTE | 2018-09-22 13:28 | NUR ---
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 2) Difficulty swallowing R/T resp status as evidenced by pt vent dependent via trach w/PEG. 3) Altered nutrition related lab values R/T h/o DM, uncontrolled BGs as evidenced by POC glu (175-529-> now improved:110-174). CURRENT TF:Glucerna 1.5 @ 50ml/hr x 24 hrs- NOW NPO ENTERAL NUTRITION RECOMMENDATIONS: Glucerna 1.5 @ 50ml/hr x 24 hrs to provide 1200ml, 1800kcal, 99g prot, 911ml free water * Maintain current TF * HOB >30 degrees/H20 flush per MD ADDITIONAL RECOMMENDATIONS: 1) PER SNF (09/07/18) pt is: 6'4" tall and 139# (63.2kg) 2) Wound care: Marcelino 1 pkt BID + Vit C 500mg QD 3) Monitor lytes, replete as needed 4) Weekly calibrated bed scale wts 5) Monitor BGs closely, updated labs as able (09/19 last) 6) Monitor residuals- rec routine reglan (vs prn) w/ con't residuals 7) BOWEL REGIMEN (LAST BM RECORDED 09/17)
--- NOTE | 2018-09-22 14:54 | NUR ---
*-* INSURANCE *-* UPDATED CLINICALS HAVE BEEN FAXED TO: [facility] EYAL:RACHEL F:[phone] P:[phone]
[2018-09-22 16:00] VITALS: BP 111/62
[2018-09-22] MEDS ORDERED: NS 275ml ONE (16:16)
[2018-09-22] MEDS ORDERED: Tubing IV Secondary IV ONE (16:16)
[2018-09-22] MEDS: Milk of Magnesia 30ml Ud GT PRN (17:27)
--- NOTE | 2018-09-22 17:42 | General Progress Note ---
Assessment/Plan Assessment/Plan IMPRESSION respiratory failure trach seizures fever leukocytosis possible sepsis hematuria anemia PSVT PLAN ID evaluation noted antibiotics noted respiratory care ativan PRN for seizures oxygen seizure meds off amio and stable in SDU mother refuses transfusion due to congregation beliefs epogen sliding scale dc if no other changes noted impression, plan, and exam edited and reviewed in detail care discussed with RN Subjective ROS Limited/Unobtainable: Yes Allergies: Coded Allergies: No Known Allergies (Unverified , 07/21/16) Subjective care noted cultures noted multiple ID noted hemodynamics stable currently stable Objective Last 24 Hour Vital Signs Date Time Temp Pulse Resp B/P (MAP) Pulse Ox O2 Delivery O2 Flow Rate FiO2 09/22/18 16:00 111 09/22/18 16:00 98.1 99 16 111/62 (78) 100 09/22/18 16:00 Mechanical Ventilator 09/22/18 16:00 40 09/22/18 12:35 89 18 40 09/22/18 12:00 84 09/22/18 12:00 Mechanical Ventilator 09/22/18 12:00 99.3 90 16 101/66 (78) 99 09/22/18 12:00 40 09/22/18 11:05 90 16 40 09/22/18 09:22 86 16 40 09/22/18 08:18 86 16 95 Mechanical Ventilator 40 09/22/18 08:08 95 17 95 Mechanical Ventilator 40 09/22/18 08:00 98.5 96 16 109/65 (80) 97 09/22/18 08:00 95 09/22/18 08:00 40 09/22/18 08:00 Mechanical Ventilator 09/22/18 07:29 95 17 40 09/22/18 05:15 85 16 40 09/22/18 04:00 40 09/22/18 04:00 Mechanical Ventilator 09/22/18 04:00 97.4 88 16 113/63 (80) 96 09/22/18 04:00 92 09/22/18 02:58 83 16 40 09/22/18 00:52 98 16 40 09/22/18 00:00 98.8 92 20 102/68 (79) 97 09/22/18 00:00 Mechanical Ventilator 09/21/18 23:25 90 09/21/18 23:00 86 16 40 09/21/18 21:46 95 16 100 Mechanical Ventilator 40 09/21/18 21:36 99 19 100 Mechanical Ventilator 40 09/21/18 21:30 99 18 40 09/21/18 20:00 98.2 97 19 101/60 (74) 95 09/21/18 20:00 40 09/21/18 20:00 Mechanical Ventilator 09/21/18 20:00 Mechanical Ventilator 09/21/18 19:01 95 09/21/18 18:40 84 16 40 Intake and Output 09/21/18 09/22/18 19:00 07:00 Intake Total 665 ml 1035.000 ml Output Total 150 ml 500 ml Balance 515 ml 535.000 ml Intake Free Water 110 ml 50 ml IV Total 55 ml 385.000 ml Tube Feeding 500 ml 600 ml Output Urine Total 150 ml 500 ml Height (Feet): 5 Height (Inches): 8.00 Weight (Pounds): 209 Objective WDWN NAD trach clear breath sounds bilaterally without rhonchi or wheeze [id number] without MRG NABS nontender no HSM no CC contracted poor LOC Gt Andres Wakefield MD Sep 22, 2018 17:42
--- NOTE | 2018-09-22 19:05 | NUR ---
HAND-OFF: Report given to PASHA Roach. Stable condition.
--- NOTE | 2018-09-22 19:23 | NUR ---
NURSE NOTES: Report received from PASHA Pearl. Observed pt lying on the bed. Awake but non verbal, pt is obtunded. SR with electronic device monitor. Trach to vent, portex 8, AC 16, TD 600, FIO2 40, Peep 5, tolerating well with the current setting. G tube intact and patent, running Glucerna 1.5 at 50cc/hr. Condom cath intact and draining well. IV on L H 22G, intact and TKO. L FA 22G, intact and patent. Bed in the lowest position. Side rails padded and up x3. Will continue to monitor.
[2018-09-22 20:00] VITALS: BP 109/71
--- NOTE | 2018-09-22 23:00 | NUR ---
NURSE NOTES: Observed pt sleeping on the bed. Gtube residual of 100cc noted. Feeding stopped and will continue to monitor.
[2018-09-23] VITALS: BP 104/67
--- NOTE | 2018-09-23 | NUR ---
NURSE NOTES: Gtube residual of 30cc noted and started feeding at 30cc/hr. Will continue to monitor.
[2018-09-23] MEDS: NovoLOG Insulin Flexpen SUBQ SCH ×3 (00:11→12:00)
--- NOTE | 2018-09-23 02:52 | NUR ---
NURSE NOTES: Noted pt did not have bowel movement for 5days. PRN dulcolax given. Will continue to monitor.
[2018-09-23 04:00] VITALS: BP 103/67
[2018-09-23] MEDS: carBAMazepine 200mg tab GT SCH ×2 (05:54→14:00)
--- NOTE | 2018-09-23 07:28 | NUR ---
HAND-OFF: Report given to PASHA Pearl. No acute distress noted at this time.
--- NOTE | 2018-09-23 07:43 | NUR ---
NURSE NOTES: Report received from PASHA Roach. Observed patient in bed. Open eyes spontaneously. On ventilator with previous setting and tolerated well with ventilator. No acute distress noted. No s/s of pain at this time. IV site intact and patent. GT site intact with ongoing feeding. HOB elevated. Noted with 30cc of residual. Condom cath intact and draining well. Bed in lowest position. Call light within reach. Will continue to monitor.
[2018-09-23 08:00] VITALS: BP 116/70
[2018-09-23] MEDS: Valproic Acid 250mg/5ml Liquid GT SCH (08:39)
[2018-09-23] MEDS: Cefepime HCl 2 GM in D5W 55 ML IVPB SCH (08:39)
[2018-09-23] MEDS: Ferrous Sulfate 300 MG/5 ML UDC GT SCH (08:39)
[2018-09-23] MEDS: Fluconazole 100mg tab ORAL SCH (08:39)
[2018-09-23] MEDS: Aspirin Baby 81mg GT SCH (08:40)
[2018-09-23] MEDS: levETIRAcetam 500mg/5ml Liquid GT SCH (08:41)
[2018-09-23] MEDS: Levemir Flexpen SUBQ SCH (08:42)
[2018-09-23] MEDS: Amikacin for Inhalation 2ML INH SCH (09:46)
--- NOTE | 2018-09-23 09:57 | Infectious Diseases Prog Note ---
Assessment/Plan Assessment/Plan antibiotics : vancomycin iv, cefepime, inhaled amikacin, fluconazole A 1. acenitobacter pneumonia 2. fungal UTI 3. respiratory failure 4. CVA 5. seizures 6. fever resolved 7. leucocytosis improving P 1. d/c iv vancomycin, cefepime, inhaled amikacin 2. continue fluconazole 3 more days 3. start inhaled colistin 4. will follow up cultures Subjective ROS Limited/Unobtainable: Yes Allergies: Coded Allergies: No Known Allergies (Unverified , 07/21/16) Objective Vital Signs Last 24 Hour Vital Signs Date Time Temp Pulse Resp B/P (MAP) Pulse Ox O2 Delivery O2 Flow Rate FiO2 09/23/18 09:46 91 16 99 Mechanical Ventilator 40 09/23/18 08:52 93 16 40 09/23/18 08:00 89 09/23/18 08:00 98.1 93 16 116/70 (85) 98 09/23/18 08:00 Mechanical Ventilator 09/23/18 08:00 40 09/23/18 06:39 84 16 40 09/23/18 05:35 88 16 40 09/23/18 05:00 Mechanical Ventilator 09/23/18 04:00 40 09/23/18 04:00 Mechanical Ventilator 09/23/18 04:00 90 09/23/18 04:00 98.4 91 16 103/67 (79) 100 09/23/18 03:19 81 16 40 09/23/18 01:36 84 16 40 09/23/18 00:01 88 16 40 09/23/18 00:00 Mechanical Ventilator 09/23/18 00:00 83 09/23/18 00:00 40 09/23/18 00:00 99.0 94 16 104/67 (79) 100 09/22/18 21:41 88 16 99 Mechanical Ventilator 40 09/22/18 21:36 87 17 99 Mechanical Ventilator 40 09/22/18 21:35 87 16 40 09/22/18 20:00 99 09/22/18 20:00 98.6 96 16 109/71 (84) 100 09/22/18 20:00 Mechanical Ventilator 09/22/18 20:00 40 09/22/18 19:57 98 16 40 09/22/18 17:26 87 16 40 09/22/18 16:00 111 09/22/18 16:00 98.1 99 16 111/62 (78) 100 09/22/18 16:00 Mechanical Ventilator 09/22/18 16:00 40 09/22/18 15:26 90 18 40 09/22/18 12:35 89 18 40 09/22/18 12:00 84 09/22/18 12:00 Mechanical Ventilator 09/22/18 12:00 99.3 90 16 101/66 (78) 99 09/22/18 12:00 40 09/22/18 11:05 90 16 40 Height (Feet): 5 Height (Inches): 8.00 Weight (Pounds): 214 HEENT: status post trach Respiratory/Chest: lungs clear Cardiovascular: normal rate, regular rhythm, no gallop/murmur Abdomen: soft, non tender, other - GT Extremities: no edema Microbiology Date/Time Source Procedure Growth Status 09/20/18 11:25 Sputum Gram Stain - Final Resulted 09/20/18 11:25 Sputum Culture - Preliminary A.[email or web address] Complx - Mdr Resulted Current Medications Medications (Trade) Dose Ordered Sig/Guillermo Route PRN Reason Start Time Stop Time Status Last Admin Dose Admin Acetaminophen (Tylenol) 650 mg Q4H PRN GT Mild Pain/Temp > 100.5 09/19/18 12:46 10/10/18 12:45 Amikacin Sulfate (Amikin) 500 mg Q12HR@, INH 09/19/18 22:00 09/28/18 21:59 09/23/18 09:46 Aspirin (ASA) 81 mg DAILY GT 09/20/18 09:00 10/11/18 08:59 09/23/18 08:40 Bisacodyl (Dulcolax) 10 mg DAILYPRN PRN RECTAL Constipation 09/19/18 12:46 10/19/18 12:45 09/23/18 02:35 Carbamazepine (TEGretol) 400 mg Q8HR GT 09/19/18 14:00 10/09/18 08:59 09/23/18 05:54 Cefepime HCl 2 gm/ Dextrose 55 ml @ 110 mls/hr EVERY 12 HOURS IVPB 09/19/18 21:00 09/25/18 11:29 09/23/18 08:39 Dextrose (Dextrose 50%) 25 ml Q30M PRN IV Hypoglycemia 09/19/18 12:45 10/09/18 14:14 Dextrose (Dextrose 50%) 50 ml Q30M PRN IV Hypoglycemia 09/19/18 12:45 10/09/18 14:14 Epoetin Grabiel (Epoetin Grabiel-EPBX(NON ESRD)) 10,000 unit MON-WED-WED SUBQ 09/19/18 21:00 10/14/18 20:59 09/21/18 22:01 Ferrous Sulfate (Feosol) 300 mg BID GT 09/19/18 18:00 10/19/18 08:59 09/23/18 08:39 Fluconazole (Diflucan) 100 mg DAILY ORAL 09/20/18 11:00 09/27/18 10:59 09/23/18 08:39 Insulin Aspart (NovoLOG) Q6HR SUBQ 09/19/18 18:00 10/09/18 17:59 09/23/18 05:53 Insulin Detemir (Levemir) 8 units Q12HR SUBQ 09/19/18 21:00 10/15/18 20:59 09/23/18 08:42 Levetiracetam (Keppra) 500 mg Q12HR GT 09/19/18 21:00 10/08/18 20:59 09/23/18 08:41 Lorazepam (Ativan 2mg/ml 1ml) 1 mg Q3H PRN IV For Anxiety 09/19/18 12:48 09/24/18 12:47 Magnesium Hydroxide (Mom) 30 ml DAILYPRN PRN GT Constipation 09/19/18 12:49 10/08/18 12:48 09/22/18 17:27 Metoclopramide HCl (Reglan) 10 mg Q6H PRN IVP Nausea & Vomiting 09/19/18 12:49 10/09/18 12:48 Midodrine (Pro-Amatine) 2.5 mg THREE TIMES A DAY GT 09/19/18 13:00 10/09/18 08:59 09/23/18 08:39 Valproic Acid (Depakene) 1,500 mg EVERY 12 HOURS GT 09/19/18 21:00 10/09/18 08:59 09/23/18 08:39 Vancomycin HCl (Vanco rx to dose) 1 ea DAILY PRN MISC Per rx protocol 09/20/18 09:00 10/18/18 09:59 Vancomycin HCl 1 gm/Dextrose 275 ml @ 183.708 mls/hr Q12HR@1000,2200 IVPB 09/21/18 22:00 09/26/18 21:59 09/22/18 22:55 Tracie Isaac MD Sep 23, 2018 09:57
[2018-09-23] MEDS ORDERED: Colistin for inhalation INH SCH (10:00)
--- NOTE | 2018-09-23 10:58 | NUR ---
*-* DISCHARGE PLANNING *-* PATIENT HAS BEEN REFERRED BACK TO: [facility] P:[phone] F:[phone]
--- NOTE | 2018-09-23 11:12 | NUR ---
*-* DISCHARGE PLANNED *-* [facility] T:[phone] FOR NURSE TO NURSE REPORT [facility] HAS BEEN ARRANGED FOR CUSTOMS AGENT AT [address] [id number]
--- NOTE | 2018-09-23 11:23 | NUR ---
NURSE NOTES: Report given to JIMMY Maynard from [facility]. ETA will be at 1200
[2018-09-23 12:00] VITALS: BP 111/75
--- NOTE | 2018-09-23 13:58 | NUR ---
NURSE NOTES: [facility] ask what time pt. will be picked up for discharge. They said they will be in 15 to 20 minutes. Awaiting for steel pickler.
--- NOTE | 2018-09-23 14:27 | NUR ---
NURSE NOTES: Patient discharged to [facility]. accompanied with ambulance personnels. Pt. is obtunded. On ventilator with Portex 8, Ac 16, TV 600, FiO2 40%, PEEP 5 and no acute distress noted. Vitals checked with stable condition. Skin assessment done and wound photo uploaded. GT site intact and patent. IV site, ID band, and senior radiation protection technician removed prior to discharge. Report given to JIMMY Maynard from [facility]. No belonging noted. Left message to mother to inform about discharge. Stable condition.
[2018-09-23] MEDS ORDERED: NS 275ml ONE ×2 (14:51)
[2018-09-23] MEDS ORDERED: Tubing IV Secondary IV ONE (14:51)
--- NOTE | 2018-09-23 15:46 | Diagnostic Imaging Report ---
Indication:Abdominal pain Technique: Grayscale and duplex Doppler imaging of the abdomen performed. Comparison: None Findings: The liver is enlarged measuring 23 cm. Spleen is 13 cm which is borderline enlarged.. The gallbladder is unremarkable. The demonstrated part of the pancreas, aorta and IVC show no abnormalities. Nonobstructive stone suspected within the left kidney. There is no hydronephrosis demonstrated.. There is no biliary ductal dilatation identified. Doppler evaluation of the main portal vein shows patency. There is no ascites. No hydronephrosis seen. CBD is 3 mm. Impression: Hepatosplenomegaly. Nonobstructive stone suspected within the left kidney.
--- NOTE | 2018-09-26 14:17 | Discharge Summary ---
Discharge Summary Discharge Summary _ DATE OF ADMISSION: 09/08/2018 DATE OF DISCHARGE: 09/23/2018 DISCHARGED BY: Dr. Wakefield REASON FOR ADMISSION: 43 years old male with past medical history of CVA, seizure disorder, chronic respiratory failure ,ventilator dependent with tracheostomy status ,dysphagia, G -tube, quadriplegia, encephalopathy ,brain damage, hypertension ,COPD, bedbound , nonverbal, presented with seizure activity. According to nursing staff , patient had multiply seizure episodes for the last 24 hours. Upon evaluation in the ED patient was found to be febrile and tachycardic. Chest x-ray revealed tracheostomy in good position. Scarring likely accounting for some volume loss in the left midlung. Laboratory workup revealed leukocytosis with WBC 14.9, anemia with hemoglobin 10 and hematocrit 28.4. Sodium 133, potassium 3.3. BUN 25, creatinine 0.9. Lactic acid 1.0. Glucose 43. Troponin negative, pro BNP 169. EKG revealed sinus rhythm, no acute ischemic changes. Urinalysis revealed evidence of pyuria and few bacteria, +3 protein. Blood pressure remained stable. Patient started on fluid resuscitation and empiric antibiotics. Hemodynamic status remained stable with mean arterial pressure above 65. Patient had another episode of seizures and received Ativan and Keppra intravenously. Patient was subsequently admitted to stepdown unit for further management. CONSULTANTS: ID specialist Dr. Isaac HOSPITAL COURSE: Patient admitted to [facility]. Ventilator support and pulmonary toilet provided. tracheostomy care provided. Baseline ABG was done. Ventilator settings were titrated as needed. Patient was followed-up with ABG and chest x-ray. ID specialist closely followed. Influenza screen test was negative. Blood cultures were negative. Urine culture revealed Xenia. Sputum culture initially revealed pseudomonas aeruginosa 2 different species. Repeated sputum culture revealed Acinetobacter MDR. Urine culture continuously showed Xenia. Antibiotic regimen was optimized as per infectious disease specialist recommendations. Patient continued to have persistent leukocytosis, which increased , but then started to trend down. Fevers resolved. Patient completed treatment for Pseudomonas pneumonia. Per ID recommendations, continue fluconazole for 3 more days. Patient started on inhaled colistin to be continued at the [facility] facility. SNF medication were continued. Seizure precaution were maintained. Patient was on Depakote, Tegretol and Keppra. Ativan was on board as needed for breakthrough seizure. Hemoglobin and hematocrit were closely monitored with goal to keep hemoglobin above 7. Anemia workup revealed evidence of iron deficiency . Patient received Venofer x 2. Patient started on Epogen. Hemoglobin and hematocrit remained at baseline. Renal parameters and electrolytes were closely monitored. Electrolytes corrected as needed and nephrotoxins were avoided. Prior to discharge all electrolytes are stable. BUN from 25 down to 21 and creatinine remains stable. Abdominal ultrasound revealed hepatosplenomegaly and nonobstructive stone in the left kidney. Supportive care provided. Bowel regimen instituted. Blood sugar was clsoely monitored and managed with current regimen. Patient clinically stabilized. Fever resolved. Leukocytosis improved. Patient was ready for transfer back to [facility] for continuation of care FINAL DIAGNOSES: Respiratory failure Tracheostomy status Seizure disorder Probably sepsis Acinetobacter pneumonia Pseudomonas pneumonia , status post treatment Fungal UTI Leukocytosis - improving Anemia PSVT DISCHARGE MEDICATIONS: List of medication was sent to accepting facility. DISCHARGE INSTRUCTIONS: Patient was discharged to the [facility]dc facility. Follow up with medical doctor at the facility. I have been assigned to dictate discharge summary for this account. I was not involved in the patient's management. HOSPITAL COURSE: DIAGNOSES: DISCHARGE MEDICATIONS: Left medication was sent to accepting facility DISCHARGE INSTRUCTIONS: [] I have been assigned to dictate discharge summary for this account. I was not involved in the patient's management. Serena Carrion NP Sep 26, 2018 14:17
== END 2018-09-23 14:52 | DRG 720 ==
LOC: EDBD 14:37 → EDBEDREQ 14:48 → EMR 15:30 → 2W 16:20 → EDBEDREQ 16:25 → 2W 09-16 20:58 → ICU 09-17 18:43 → 2W 09-19 12:35
PROC: 5A1955Z Respiratory Ventilation, Greater than 96 Consecutive Hours (ICD-10-PCS; principal; 2018-09-08)
DX: A41.9 Sepsis, unspecified organism (principal); R40.3 Persistent vegetative state; Z99.11 Dependence on respirator [ventilator] status; J15.1 Pneumonia due to Pseudomonas; J96.10 Chronic respiratory failure, unspecified whether with hypoxia or hypercapnia; Z93.0 Tracheostomy status; R65.20 Severe sepsis without septic shock; B37.49 Other urogenital candidiasis; Z86.73 Personal history of transient ischemic attack (TIA), and cerebral infarction without residual deficits; G40.909 Epilepsy, unspecified, not intractable, without status epilepticus; Z74.01 Bed confinement status; E78.00 Pure hypercholesterolemia, unspecified; I47.1 Supraventricular tachycardia; D50.9 Iron deficiency anemia, unspecified; R31.9 Hematuria, unspecified
CPT/HCPCS: 36415; 36600; 71045; 76700; 80048; 80053; 80202; 81001; 81003; 82270; 82550; 82553; 82728; 82803; 82962; 83540; 83550; 83605; 83880; 84478; 84484; 85007; 85025; 85610; 85730; 86710; 87040; 87070; 87081; 87086; 87181; 87205; 93005; 94002; 94003; 94640; 94664; 96361; 96365; 96367; 96368; 96375; 96376; 99291; J1815; J2765; J8499; S5561

== ENCOUNTER 2018-09-27 18:42 | Inpatient (IN) | payer MEDICAID ==
[~2018-09-27] VITALS: Ht 167.6 cm; Wt 69.4 kg
[~2018-09-27 18:42] MED LIST changes: +ASPIR 8181 MG ORAL; +FERROUS SU325 MG/5 M GT
[2018-09-27] MEDS ORDERED: Cefepime HCl 2 GM in NS 110 ML IV SCH (19:00)
[2018-09-27 19:14] VITALS: BP 149/102
--- NOTE | 2018-09-27 19:23 | NUR ---
ED Nurse Note: pt presents to ed via [facility] from [facility]. pt very diaphoretic and tachycardia noted with copious sputum around trach site. pt with tachypnea. resp placing pt on vent as noted. pt with right arm very contracted.pt is at his normal mentation per [facility]. resp therapist suctioning pt. pt with lines changed and rectal temp done at 98.6. md aware of ecg. gtube site intact. vre swab obtained and held at bs. report to noc shift rn aware to obtain urine and document wound with photos.
[2018-09-27 19:34] LABS: BASOPHILS % (AUTO) 2.1 % (0.0-2.0); EOSINOPHILS % (AUTO) 4.6 % (0.0-3.0); HEMATOCRIT 31.5 % (42.0-52.0); LYMPHOCYTES % (AUTO) 42.8 % (20.0-45.0); MEAN CORPUSCULAR VOLUME 99 FL (80-99); MONOCYTES % (AUTO) 5.1 % (1.0-10.0); NEUTROPHILS % (AUTO) 45.5 % (45.0-75.0); PLATELET COUNT 732 K/UL (150-450); RED BLOOD COUNT 3.19 M/UL (4.70-6.10); RED CELL DISTRIBUTION WIDTH 17.3 % (11.6-14.8); WHITE BLOOD COUNT 13.5 K/UL (4.8-10.8)
[2018-09-27 19:44] LABS: ANION GAP 11 mmol/L (5-15); BLOOD UREA NITROGEN 21 mg/dL (7-18); CALCIUM 9.9 MG/DL (8.5-10.1); CARBON DIOXIDE 27 MMOL/L (21-32); CHLORIDE 95 MMOL/L (98-107); CREATININE 1.1 MG/DL (0.55-1.30); POTASSIUM 5.3 MMOL/L (3.5-5.1); SODIUM 132 MMOL/L (136-145)
[2018-09-27 19:57] VITALS: BP 118/92
[2018-09-27 19:58] LABS: ALANINE AMINOTRANSFERASE 50 U/L (12-78); ALBUMIN 2.8 G/DL (3.4-5.0); ALBUMIN/GLOBULIN RATIO 0.4 (1.0-2.7); ALKALINE PHOSPHATASE 434 U/L (46-116); ASPARTATE AMINO TRANSFERASE 19 U/L (15-37); BILIRUBIN,TOTAL 0.3 MG/DL (0.2-1.0); CKMB 1.8 NG/ML (0.0-3.6); CREATINE KINASE 39 U/L (26-308)
--- NOTE | 2018-09-27 20:12 | Emergency Room Report ---
History of Present Illness General Chief Complaint: General Complaint Source: Patient, Medical Record Present Illness HPI This patient has a history of sepsis. Patient presents from a [facility] facility. Review of respiratory failure and is tracheostomy and ventilator dependent. He also has a history of quadriplegia, diabetes, seizures, encephalopathy, CVA. He is brought in from a [facility] facility because of tachycardia. Per report, the patient had a heart rate in the 150s. There are no other complaints. The patient is nonverbal at baseline. Allergies: Coded Allergies: No Known Allergies (Unverified , 07/21/16) Patient History Past Medical History: see triage record, old chart reviewed, DM, HTN, OH, CAD, COPD, GERD Past Surgical History: other - Trach/vent, G-tube Social History: Denies: smoking, alcohol use, drug use Reviewed Nursing Documentation: PMH: Agreed; PSxH: Agreed Nursing Documentation-PMH Past Medical History: No History, Except For Hx Hypertension: Yes Hx Diabetes: Yes Hx Cancer: No Hx Gastrointestinal Problems: Yes - G-tube, Hx Cerebrovascular Accident: Yes Hx Seizures: Yes Review of Systems All Other Systems: negative except mentioned in HPI Physical Exam Vital Signs Date Time Temp Pulse Resp B/P (MAP) Pulse Ox O2 Delivery O2 Flow Rate FiO2 09/27/18 18:41 96.4 150 14 149/102 99 Mechanical Ventilator 15.0 09/27/18 19:13 100 Sp02 EP Interpretation: reviewed, normal General Appearance: no apparent distress, alert, GCS 15, non-toxic Head: normocephalic, atraumatic Eyes: bilateral eye normal inspection, bilateral eye PERRL ENT: normal pharynx, no angioedema Neck: full range of motion, supple/symm/no masses Respiratory: chest non-tender, lungs clear, normal breath sounds, no respiratory distress, no retraction, no accessory muscle use, speaking full sentences Cardiovascular #1: no edema, tachycardia Gastrointestinal: normal bowel sounds, non tender, soft, non-distended, no guarding, no rebound Rectal: deferred Musculoskeletal: back normal, gait/station normal, normal range of motion, non- tender Neurologic: alert, oriented x3, responsive, motor strength/tone normal, sensory intact, speech normal Psychiatric: judgement/insight normal, memory normal, mood/affect normal, no suicidal/homicidal ideation Skin: normal color, no rash, warm/dry, well hydrated Medical Decision Making Diagnostic Impression: Primary Impression: Severe sepsis Additional Impressions: Lactic acid acidosis Tachycardia ER Course This patient presented very tachycardic and slightly hypotensive. He was given aggressive IV fluids and broad-spectrum antibiotics with the presumption of sepsis. This did turn around his heart rate which at the time of this dictation is in the 90s and the patient is normotensive. Unfortunately the nurse caring for the patient was unable to get a catheterized urine. This is pending. I suspect that the source is urine as it was last time this patient was admitted. There is no evidence of pneumonia on chest x-ray. This patient is admitted to the ICU step down unit. This patient is critically ill. This patient required complex medical decision- making, aggressive intervention, extensive laboratory workup and monitoring. Critical care time: 40 minutes. Laboratory Tests Test 09/27/18 18:55 White Blood Count 13.5 K/UL (4.8-10.8) H Red Blood Count 3.19 M/UL (4.70-6.10) L Hemoglobin 10.0 G/DL (14.2-18.0) L Hematocrit 31.5 % (42.0-52.0) L Mean Corpuscular Volume 99 FL (80-99) Mean Corpuscular Hemoglobin 31.5 PG (27.0-31.0) H Mean Corpuscular Hemoglobin Concent 31.9 G/DL (32.0-36.0) L Red Cell Distribution Width 17.3 % (11.6-14.8) H Platelet Count 732 K/UL (150-450) H Mean Platelet Volume 4.9 FL (6.5-10.1) L Neutrophils (%) (Auto) 45.5 % (45.0-75.0) Lymphocytes (%) (Auto) 42.8 % (20.0-45.0) Monocytes (%) (Auto) 5.1 % (1.0-10.0) Eosinophils (%) (Auto) 4.6 % (0.0-3.0) H Basophils (%) (Auto) 2.1 % (0.0-2.0) H Sodium Level 132 MMOL/L (136-145) L Potassium Level 5.3 MMOL/L (3.5-5.1) H Chloride Level 95 MMOL/L (98-107) L Carbon Dioxide Level 27 MMOL/L (21-32) Anion Gap 11 mmol/L (5-15) Blood Urea Nitrogen 21 mg/dL (7-18) H Creatinine 1.1 MG/DL (0.55-1.30) Estimate Glomerular Filtration Rate > 60 mL/min (>60) Glucose Level 239 MG/DL (74-106) H Lactic Acid Level 3.80 mmol/L (0.4-2.0) H Calcium Level 9.9 MG/DL (8.5-10.1) Total Bilirubin 0.3 MG/DL (0.2-1.0) Aspartate Amino Transferase (AST) 19 U/L (15-37) Alanine Aminotransferase (ALT) 50 U/L (12-78) Alkaline Phosphatase 434 U/L (46-116) H Total Creatine Kinase 39 U/L (26-308) Creatine Kinase MB 1.8 NG/ML (0.0-3.6) Creatine Kinase MB Relative Index 4.6 Troponin I 0.000 ng/mL (0.000-0.056) Total Protein 9.4 G/DL (6.4-8.2) H Albumin 2.8 G/DL (3.4-5.0) L Globulin 6.6 g/dL Albumin/Globulin Ratio 0.4 (1.0-2.7) L EKG Diagnostic Results Rate: tachycardiac Rhythm: other - S.tachycardia ST Segments: no acute changes Rhythm Strip Diag. Results EP Interpretation: yes Rate: 120's Rhythm: no PVC's, no ectopy, other - S.tachycardia Chest X-Ray Diagnostic Results Chest X-Ray Diagnostic Results : Chest X-Ray Ordered: Yes # of Views/Limited/Complete: 1 View Indication: Other Interpretation: no consolidation, no effusion, no pneumothorax, no acute cardiopulmonary disease Impression: No acute disease Electronically Signed by: Keesha Owens DO Last Vital Signs Date Time Temp Pulse Resp B/P (MAP) Pulse Ox O2 Delivery O2 Flow Rate FiO2 09/27/18 19:57 98.6 103 20 118/92 100 Mechanical Ventilator 15.0 100 Disposition: ADMITTED INPATIENT Condition: Critical Referrals: Andres Wakefield MD (PCP) Keesha Owens DO Sep 27, 2018 20:12
[2018-09-27 21:23] VITALS: BP 112/88
--- NOTE | 2018-09-27 21:23 | NUR ---
ER Nurse Note: Pt VSS, no signs of distress. All orders completed per ERMD orders except urine sample. Pt was catherized three times, no urine; charge nurse informed and attmepted. No urine. ERMD aware. Pt is infusing second 1000ml of NS. Awaiting results and plan of care. All safety measures met; will continue to montior.
--- NOTE | 2018-09-27 22:30 | NUR ---
ER Nurse Note: Pt resting comfortably. Pt no signs of distress, VSS. Bed in the lowest position, all safety measures met; will continue to monitor.
[2018-09-27 22:54] VITALS: BP 126/92
[2018-09-27 23:45] VITALS: BP 109/86
--- NOTE | 2018-09-27 23:45 | NUR ---
ER Nurse Note: Report given to Michele PAK in SCU overflow for continuity of care. Pt VSS, no signs of distress, no pain. Pt has condom cath, able to get urine, no complications. All orders completed per ERMD orders.
[2018-09-27 23:54] LABS: BILIRUBIN, URINE NEGATIVE (NEGATIVE); COLOR,URINE PALE YELLOW; GLUCOSE, URINE (UA) NEGATIVE (NEGATIVE); KETONES,URINE NEGATIVE (NEGATIVE); LEUKOCYTE ESTERASE ,URINE 3+ (NEGATIVE); NITRITE,URINE NEGATIVE (NEGATIVE); PH,URINE 6 (4.5-8.0); PROTEIN,URINE 2+ (NEGATIVE); UROBILINOGEN,URINE NORMAL MG/DL (0.0-1.0)
[2018-09-28 00:05] VITALS: BP 91/63
--- NOTE | 2018-09-28 00:05 | NUR ---
NURSE NOTES: Report received from PASHA Malik. Pt is obtunded. candles pourer shows SR. Pt ventilator dependent with trach of portex 9. Ventilator settings: AC16, VT 600, FiO2: 50%, Peep: 5. Tolerating ventilator settings well. Copious secretions noted. GT present, currently clamped. Pt has a condom catheter in place, draining appropriately. See WCP for skin alterations. Pt has a LH22g saline-locked, asymptomatic and patent. Bed in lowest position, bed alarms placed, side rails padded for seizure precautions. VSS. Will continue to monitor and with patients plan of care.
[2018-09-28 00:17] LABS: APPEARANCE,URINE SLIGHTLY CLOUDY
--- NOTE | 2018-09-28 00:30 | NUR ---
NURSE NOTES: Contacted Dr. Wakefield for admitting orders. Awaiting return call.
[2018-09-28] MEDS ORDERED: LANTUS5 UNITS SUBQ (00:56)
[2018-09-28] MEDS ORDERED: VALPROIC A250 MG/51 GT (00:56)
[2018-09-28] MEDS ORDERED: TEGRETOL100 MG/5 M GT (00:56)
[2018-09-28] MEDS ORDERED: LANTUS SOL100 UNIT/1 SUBQ (00:56)
[2018-09-28] MEDS ORDERED: FERROUS SU325 MG/5 M GT (00:56)
--- NOTE | 2018-09-28 01:02 | NUR ---
NURSE NOTES: Contacted Dr. Wakefield for admitting orders. Awaiting return call.
--- NOTE | 2018-09-28 02:14 | NUR ---
NURSE NOTES: Called Dr. Wakefield for admitting orders. Awaiting return call.
[2018-09-28 04:00] VITALS: BP 109/74
[2018-09-28] MEDS ORDERED: LORazepam Inj 2mg/ml 1ml IV PRN (05:15)
[2018-09-28] MEDS ORDERED: Milk of Magnesia 30ml Ud GT PRN (05:45)
[2018-09-28] MEDS: NovoLOG Insulin Flexpen SUBQ SCH ×4 (06:30→23:20)
[2018-09-28] MEDS: Piperacillin/Tazobactam 3.375 GM in NS 110 ML IVPB SCH ×3 (06:53→20:38)
[2018-09-28] MEDS ORDERED: Vancomycin 1gm/D5W 275ml IVPB ONE ×4 (07:00→08:30)
--- NOTE | 2018-09-28 07:15 | NUR ---
NURSE NOTES: Report received from PASHA Ceballos. Pt is obtunded. radiation monitor shows ST, HR 110. Pt ventilator dependent with trach of portex 9. Ventilator settings: AC16, VT 600, FiO2: 50%, Peep: 5. Tolerating ventilator settings well. Copious secretions noted. GT noted on left lower quadrant running Glucerna 1.2 @15ml/hr, no residual, HOB 35 degrees. Pt has a condom catheter in place, draining appropriately. See WCP for skin alterations. Pt has a LH22g saline-locked, asymptomatic and patent running NS@100ml/hr. Bed in lowest position, bed alarms placed, side rails padded for seizure precautions. VSS. Will continue to monitor and with patients plan of care.
[2018-09-28 07:51] LABS: BASOPHILS % (AUTO) 1.5 % (0.0-2.0); EOSINOPHILS % (AUTO) 1.7 % (0.0-3.0); HEMATOCRIT 26.8 % (42.0-52.0); HEMOGLOBIN 8.5 G/DL (14.2-18.0); LYMPHOCYTES % (AUTO) 3.9 % (20.0-45.0); MEAN CORPUSCULAR VOLUME 99 FL (80-99); MONOCYTES % (AUTO) 10.6 % (1.0-10.0); NEUTROPHILS % (AUTO) 82.3 % (45.0-75.0); PLATELET COUNT 579 K/UL (150-450); RED CELL DISTRIBUTION WIDTH 17.6 % (11.6-14.8); WHITE BLOOD COUNT 8.7 K/UL (4.8-10.8)
[2018-09-28 08:00] VITALS: BP 107/65
[2018-09-28 08:10] LABS: ANION GAP 8 mmol/L (5-15); BLOOD UREA NITROGEN 17 mg/dL (7-18); CALCIUM 9.3 MG/DL (8.5-10.1); CARBON DIOXIDE 26 MMOL/L (21-32); CHLORIDE 102 MMOL/L (98-107); CREATININE 0.8 MG/DL (0.55-1.30); POTASSIUM 4.4 MMOL/L (3.5-5.1); SODIUM 136 MMOL/L (136-145)
[2018-09-28] MEDS: Valproic Acid 250mg/5ml Liquid GT SCH ×2 (08:17→17:23)
[2018-09-28] MEDS: Aspirin Baby 81mg GT SCH (08:18)
[2018-09-28] MEDS: carBAMazepine 200mg tab GT SCH ×2 (08:18→17:23)
[2018-09-28] MEDS: Ferrous Sulfate 300 MG/5 ML UDC GT SCH ×2 (08:19→17:23)
[2018-09-28] MEDS ORDERED: Docusate 100mg/10ml Liq ORAL SCH (09:00)
--- NOTE | 2018-09-28 09:26 | History & Physical ---
History and Physical History & Physicial History & Physicial 43-year-old male, bedbound, CVA, tonic vegetative state, nonverbal, history of seizures, presents with tachycardia. Patient with recent admission for seizures and sepsis Allergies: No Known Allergies (Unverified , 07/21/16) Past Medical History: diabetes, elevated cholesterol, trach, gt, respiratory failure, seizure disorder, anemia Past Surgical History: none Pertinent Family History: none Physical WDWN NAD trach clear breath sounds bilaterally without rhonchi or wheeze [id number] without MRG NABS nontender no HSM no CCE poorly responsive Labs Test 09/27/18 18:55 09/27/18 22:20 09/27/18 23:00 09/28/18 07:20 White Blood Count 13.5 K/UL (4.8-10.8) 8.7 K/UL (4.8-10.8) Red Blood Count 3.19 M/UL (4.70-6.10) 2.70 M/UL (4.70-6.10) Hemoglobin 10.0 G/DL (14.2-18.0) 8.5 G/DL (14.2-18.0) Hematocrit 31.5 % (42.0-52.0) 26.8 % (42.0-52.0) Mean Corpuscular Volume 99 FL (80-99) 99 FL (80-99) Mean Corpuscular Hemoglobin 31.5 PG (27.0-31.0) 31.5 PG (27.0-31.0) Mean Corpuscular Hemoglobin Concent 31.9 G/DL (32.0-36.0) 31.7 G/DL (32.0-36.0) Red Cell Distribution Width 17.3 % (11.6-14.8) 17.6 % (11.6-14.8) Platelet Count 732 K/UL (150-450) 579 K/UL (150-450) Mean Platelet Volume 4.9 FL (6.5-10.1) 4.6 FL (6.5-10.1) Neutrophils (%) (Auto) 45.5 % (45.0-75.0) 82.3 % (45.0-75.0) Lymphocytes (%) (Auto) 42.8 % (20.0-45.0) 3.9 % (20.0-45.0) Monocytes (%) (Auto) 5.1 % (1.0-10.0) 10.6 % (1.0-10.0) Eosinophils (%) (Auto) 4.6 % (0.0-3.0) 1.7 % (0.0-3.0) Basophils (%) (Auto) 2.1 % (0.0-2.0) 1.5 % (0.0-2.0) Sodium Level 132 MMOL/L (136-145) 136 MMOL/L (136-145) Potassium Level 5.3 MMOL/L (3.5-5.1) 4.4 MMOL/L (3.5-5.1) Chloride Level 95 MMOL/L (98-107) 102 MMOL/L (98-107) Carbon Dioxide Level 27 MMOL/L (21-32) 26 MMOL/L (21-32) Anion Gap 11 mmol/L (5-15) 8 mmol/L (5-15) Blood Urea Nitrogen 21 mg/dL (7-18) 17 mg/dL (7-18) Creatinine 1.1 MG/DL (0.55-1.30) 0.8 MG/DL (0.55-1.30) Estimat Glomerular Filtration Rate > 60 mL/min (>60) > 60 mL/min (>60) Glucose Level 239 MG/DL (74-106) 99 MG/DL (74-106) Lactic Acid Level 3.80 mmol/L (0.4-2.0) 1.90 mmol/L (0.66-2.22) Calcium Level 9.9 MG/DL (8.5-10.1) 9.3 MG/DL (8.5-10.1) Total Bilirubin 0.3 MG/DL (0.2-1.0) Aspartate Amino Transf (AST/SGOT) 19 U/L (15-37) Alanine Aminotransferase (ALT/SGPT) 50 U/L (12-78) Alkaline Phosphatase 434 U/L (46-116) Total Creatine Kinase 39 U/L (26-308) Creatine Kinase MB 1.8 NG/ML (0.0-3.6) Creatine Kinase MB Relative Index 4.6 Troponin I 0.000 ng/mL (0.000-0.056) Total Protein 9.4 G/DL (6.4-8.2) Albumin 2.8 G/DL (3.4-5.0) Globulin 6.6 g/dL Albumin/Globulin Ratio 0.4 (1.0-2.7) Urine Color Pale yellow Urine Appearance Slightly cloudy Urine pH 6 (4.5-8.0) Urine Specific [place] 1.010 (1.005-1.035) Urine Protein 2+ (NEGATIVE) Urine Glucose (UA) Negative (NEGATIVE) Urine Ketones Negative (NEGATIVE) Urine Blood 2+ (NEGATIVE) Urine Nitrite Negative (NEGATIVE) Urine Bilirubin Negative (NEGATIVE) Urine Urobilinogen Normal MG/DL (0.0-1.0) Urine Leukocyte Esterase 3+ (NEGATIVE) Urine RBC 2-4 /HPF (0 - 0) Urine WBC 40-60 /HPF (0 - 0) Urine Squamous Epithelial Cells None /LPF (NONE/OCC) Urine Bacteria Moderate /HPF (NONE) Hemoglobin A1c 6.9 % (4.3-6.0) IMPRESSION anemia agitation seizures tachycardia leukocytosis respiratory failure trach gt PLAN iv hydration epogen snf meds antibiotics seizure precautions dc to snf once stable impression, plan, and exam edited and reviewed in detail care discussed with Andres Esquivel MD Sep 28, 2018 09:26
--- NOTE | 2018-09-28 09:53 | NUR ---
RD ASSESSMENT & RECOMMENDATIONS SEE CARE ACTIVITY FOR COMPLETE ASSESSMENT DAILY ESTIMATED NEEDS: Needs based on Underwt, wound, Critical care (63kg) 25-30 kcals/kg 2722-6200 total kcals 1.25-2 g protein/kg 79-126 g total protein 25-30 mL/kg 5812-3277 total fluid mLs NUTRITION DIAGNOSIS: 1) Increased kcal, prot, needs R/T sepsis, wound healing,underweight status as evidenced by pt w/ elev WBC, tmax of 101.0, recent h/o wounds, pending eval, and pt w/ BMI 17.0, 69% IBW. 2) Difficulty swallowing R/T resp status as evidenced by pt vent dependent via trach w/PEG. 3) Altered nutrition related lab values R/T h/o DM, uncontrolled BGs as evidenced by POC glu (175-529-> now improved:110-174). CURRENT TF: Glucerna 1.2 @ 55ml/hr x 24 hrs ENTERAL NUTRITION RECOMMENDATIONS: Glucerna 1.2 @ 60ml/hr x 24 hrs + Prosource qdaily to provide 1440ml, 1728 kcal, 86g + 11g prot, 1159ml free H2O * As medically able, rec to increase current goal rate to 60ml/hr x24 hrs to better meet est needs * Add Prosource 1 pack daily * HOB >30 degrees/H20 flush per MD ADDITIONAL RECOMMENDATIONS: 1) PER SNF (09/07/18) pt is: 6'4" tall and 139# (63.2kg) 2) Wound care: Marcelino 1 pkt BID + Vit C 250mg QD (f/up w/ WC eval) 3) Monitor lytes, need for TF change 4) Weekly calibrated bed scale wts 5) Monitor BGs closely . .
--- NOTE | 2018-09-28 10:15 | NUR ---
NURSE NOTES: IV inserted on left forearm 20G, patent and asymptomatic.
--- NOTE | 2018-09-28 10:27 | NUR ---
NURSE NOTES: Venous Duplex resulted as negative, SCD's placed on BLE.
--- NOTE | 2018-09-28 11:00 | Diagnostic Imaging Report ---
Indication: Dyspnea Comparison: 09/18/2018 A single view chest radiograph was obtained. Findings: Cardiomediastinal appearance is within normal limits for age. The lungs are clear. Tracheostomy noted. Pulmonary vascularity is appropriate. The diaphragmatic contour is smooth and costophrenic angles are sharp. No pleural effusions are identified. Old right clavicle fracture demonstrated. The bones are otherwise unremarkable. Impression: No acute findings
--- NOTE | 2018-09-28 11:00 | NUR ---
*-* INSURANCE *-* CLINICALS HAVE BEEN FAXED TO: [facility] FAX F/S AND CLINICALS TO F:[phone]
[2018-09-28 12:00] VITALS: BP 96/55
--- NOTE | 2018-09-28 13:48 | NUR ---
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 96.4 HR 150 RR 14 B/P 149/102 WBC 13.4 NA 132 K 5.3 PLT 732 BUN 21 ALK PHOS 434 UA= PROTEIN,LEUKOCYTE ESTERASE,RBC,WBC,BACTERIA IS: IV BOLUS X 1 LITER CEFEPIME IV ADMITTED TO ICU@ 2340 ICU STATUS DCP BACK TO [facility]
[2018-09-28 16:00] VITALS: BP 127/63
--- NOTE | 2018-09-28 17:32 | Cardiology Report ---
APPROVED REPORT EKG Measurement Heart [id number] Suspect arm lead reversal, interpretation assumes no reversal Sinus tachycardia Right axis deviation Pulmonary disease pattern Abnormal ECG
--- NOTE | 2018-09-28 17:32 | NUR ---
NURSE NOTES: Blood sugar=66, cup of orange juice given and will recheck in 15 mins. Placed p200 mattress.
--- NOTE | 2018-09-28 18:08 | NUR ---
NURSE NOTES: Rechecked blood sugar=91, no s/sx of hypo or hyperglycemia. Patient is getting BUE venous duplex.
--- NOTE | 2018-09-28 18:51 | NUR ---
TRANSFER TO FLOOR: Patient transferred to [facility], per Dr. Wakefield. Report given to PASHA Tesfaye. Medications given to RN. Patient has no belongings. Family and or S/O informed of transfer.
[2018-09-28] MEDS ORDERED: Acetaminophen 650mg/20.3ml GT PRN (19:00)
--- NOTE | 2018-09-28 19:05 | NUR ---
RESPIRATORY NOTE: Received pt on AC 16, 600VT, 50%, PEEP +5. Pt is trach-dependent w/ a cuffed, Portex 9 tube. Pt obtunded. B/S jonh. rhonchi, sxn moderate to large amounts of thick, pale-yellow secretions. Vent plugged into red outlet, ambubag at bedside. Pt in no apparent distress at this time. Will continue plan of care.
--- NOTE | 2018-09-28 19:15 | NUR ---
NURSE NOTES: Received report from Lin PAK, pt. in bed with eyes open, obtunded- non-verbal, no signs of acute cardiac or respiratory distress noted, bed in lowest position and call light within easy reach, bed alarm on side rails up x's3 and safety brakes engaged, pt. appears to be sating well on current vent settings at AC 18, TV 600, Fio2 at 50% and peep of 15%- no respiratory distress noted, Glucerna 1.2 running via g- tube at 35cc/hr- goal is 55cc/hr- residual is 65cc/hr. Condom cath intact and draining to gravity, Dressings dry and intact, Left hand 22G and RFA 20G running NS at 100cc/hr- IV intact and patent. Oral care provided, Safety measure continued, will continue with plan of care. Addendum: 09/28/18 at 2055 by JB SRINIVASAN RN RN side rails padded for seizure precautions- no seizure activity noted during assessment.
[2018-09-28 20:00] VITALS: BP 106/68
[2018-09-28] MEDS ORDERED: Vancomycin 750mg/NS 275ml IVPB SCH ×2 (21:00)
[2018-09-28] MEDS: Epoetin Alfa-EPBX (NON ESRD)10,000 unit/ml vial SUBQ SCH (21:34)
[2018-09-29] VITALS: BP 101/56
[2018-09-29] MEDS: Piperacillin/Tazobactam 3.375 GM in NS 110 ML IVPB SCH ×3 (03:03→20:15)
[2018-09-29 04:00] VITALS: BP 102/58
[2018-09-29] MEDS: NovoLOG Insulin Flexpen SUBQ SCH ×4 (05:16→23:20)
--- NOTE | 2018-09-29 07:09 | NUR ---
HAND-OFF: Report given to Leni RN, pt. remains stable and no signs of distress noted.
--- NOTE | 2018-09-29 07:13 | NUR ---
NURSE NOTES: left msg for DR. Wakefield to get vent settings- awaiting for call back from doctor.
--- NOTE | 2018-09-29 07:15 | NUR ---
NURSE NOTES: Report received from Vane PAK.Pt resting in bed ,obtunded ,noted no resp distress,with trach tube to vent, on current settings,tolerating well,no signs of pain or discomfort,SR on the monitor,GTF Glucerna 1.2 at at 35 ml/hr ,no residual noted,condom cath in placed,IV sites x2, LH heplock and RFA with IVF running NS at 100 ml/hr,skin warm and dry,SR up x2 HOB elevated,bed lock in lowest position,will continue with plans of care.
--- NOTE | 2018-09-29 07:20 | NUR ---
ESPIRATORY NOTE: Received pt on AC 16, 600VT, 50%, PEEP +5. Pt is trach-dependent w/ a cuffed, Portex 9 tube. Pt is obtunded. Yeison. rhonchi, sxn moderate to small amounts of thick/ thin/ frothy clear/white/benitez secretions without any incidents. Vent plugged into red outlet, ambubag at bedside, alarms are set and audible. Pt in no apparent distress at this time. Will continue plan of care.
[2018-09-29 08:00] VITALS: BP 106/64
--- NOTE | 2018-09-29 08:27 | General Progress Note ---
Assessment/Plan Assessment/Plan IMPRESSION anemia agitation seizures tachycardia leukocytosis respiratory failure trach gt PLAN iv hydration epogen snf meds antibiotics ID clearance seizure precautions dc to snf once stable impression, plan, and exam edited and reviewed in detail care discussed with RN Subjective Allergies: Coded Allergies: No Known Allergies (Unverified , 07/21/16) Subjective cultures noted Objective Last 24 Hour Vital Signs Date Time Temp Pulse Resp B/P (MAP) Pulse Ox O2 Delivery O2 Flow Rate FiO2 09/29/18 05:23 90 16 50 09/29/18 04:00 Mechanical Ventilator 09/29/18 04:00 98.5 86 16 102/58 (73) 100 09/29/18 04:00 84 09/29/18 04:00 50 09/29/18 03:30 89 16 50 09/29/18 01:06 104 19 50 09/29/18 00:00 94 09/29/18 00:00 98.2 93 16 101/56 (71) 98 09/29/18 00:00 Mechanical Ventilator 09/29/18 00:00 50 09/28/18 23:01 88 16 50 09/28/18 21:06 98 16 50 09/28/18 20:00 98.0 87 16 106/68 (81) 100 09/28/18 20:00 102 09/28/18 20:00 Mechanical Ventilator 09/28/18 20:00 50 09/28/18 19:03 101 16 50 09/28/18 17:09 100 16 50 09/28/18 16:00 98.7 99 16 127/63 (84) 100 09/28/18 16:00 Mechanical Ventilator 09/28/18 16:00 50 09/28/18 16:00 98 09/28/18 15:02 106 16 50 09/28/18 13:11 102 24 50 09/28/18 12:00 101 09/28/18 12:00 50 09/28/18 12:00 Mechanical Ventilator 09/28/18 12:00 98.8 97 16 96/55 (69) 100 09/28/18 11:29 102 16 50 09/28/18 09:14 109 16 50 Intake and Output 09/28/18 09/29/18 19:00 07:00 Intake Total 1120 ml 2094.166 ml Output Total 400 ml 174 ml Balance 720 ml 1920.166 ml Free Water 60 ml 50 ml IV Total 1000 ml 1659.166 ml Tube Feeding 60 ml 385 ml Output Urine Total 400 ml 174 ml # Voids 3 Height (Feet): 5 Height (Inches): 6.00 Weight (Pounds): 151 Objective WDWN NAD trach clear breath sounds bilaterally without rhonchi or wheeze [id number] without MRG NABS nontender Gt no CCE contractures nonfocal Andres Wakefield MD Sep 29, 2018 08:27
[2018-09-29] MEDS: Valproic Acid 250mg/5ml Liquid GT SCH ×2 (09:53→18:22)
[2018-09-29] MEDS: carBAMazepine 200mg tab GT SCH ×2 (09:55→18:21)
[2018-09-29] MEDS: Aspirin Baby 81mg GT SCH (09:55)
[2018-09-29] MEDS: Docusate 100mg/10ml Liq GT SCH (09:56)
[2018-09-29] MEDS: Ferrous Sulfate 300 MG/5 ML UDC GT SCH ×2 (09:56→18:22)
[2018-09-29] MEDS ORDERED: Vancomycin 1gm/D5W 275ml IVPB SCH ×2 (10:00)
--- NOTE | 2018-09-29 10:50 | NUR ---
NURSE NOTES: no resp distress notesd,ora/tracheal secretions suctioned urned and repositioned.
--- NOTE | 2018-09-29 11:58 | Diagnostic Imaging Report ---
APPROVED REPORT CPT Code: 98248 Present Symptoms Lower Extremity Pain: BILATERAL: Imaging reveals a patent deep venous system bilaterally. There is no evidence of thrombus within the femoral, popliteal or tibial segments. The greater saphenous veins are also within normal limits. Doppler indicates normal spontaneous flow within these segments.
[2018-09-29 12:00] VITALS: BP 106/64
[2018-09-29] MEDS: Fluconazole 100mg tab GT SCH (13:10)
--- NOTE | 2018-09-29 14:00 | NUR ---
NURSE NOTES: no change in pt's status,family member at bedside,updated re pt's plans of care.
--- NOTE | 2018-09-29 15:46 | NUR ---
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 97.7 HR 84 RR 16 B/P 106/64 AC 16 TV 600 FIO2 50% PEEP 5 DUPLEX BLE= NEGATIVE IS: ZOSYN IV DIFLUCAN GT IVF NS @ 100ML/HR ALB HHN STEP DOWN STATUS
[2018-09-29 16:00] VITALS: BP 103/57
--- NOTE | 2018-09-29 16:45 | Consultation ---
DATE OF CONSULTATION: 09/29/2018 INFECTIOUS DISEASE CONSULTATION This consultation is for coverage of Dr. Isaac. PRIMARY ATTENDING PHYSICIAN: Andres Wakefield M.D. REASON FOR CONSULT: Sepsis. HISTORY OF PRESENT ILLNESS: The patient is a 43-year-old male admitted on 09/27/2018 from a care home facility with tachycardia and mild hypotension. The patient has leukocytosis. The patient is status post CVA. He is not a source of history. At the time of admission, had leukocytosis of 13.5. PAST MEDICAL HISTORY: Significant for ventilator-dependent respiratory failure, status post G-tube, diabetes mellitus, hypertension, anemia, status post tracheostomy, and hepatosplenomegaly. The patient had a recent history of admission with sepsis and pneumonia and was discharged on 09/23/2018. MEDICATIONS: Vancomycin, Colace, Epogen, Zosyn, Tylenol, insulin, Keppra, midodrine, ferrous sulfate, carbamazepine, valproic acid, and magnesium hydroxide. ALLERGIES: No known drug allergy. SOCIAL HISTORY: longterm resident with poor mental and functional status. PHYSICAL EXAMINATION: VITAL SIGNS: Temperature 97.7, pulse 90, and blood pressure 106/64. GENERAL APPEARANCE: No acute distress. HEAD AND NECK: Status post tracheostomy. HEART: Normal rate. LUNGS: Clear. ABDOMEN: Soft. G-tube feeding. EXTREMITY: Has no edema. Has contracture in the right arm. NEUROLOGIC: Nonresponsive. LABORATORY AND DIAGNOSTIC DATA: WBC is 8.7, hemoglobin 8.5, hematocrit 26.8, and platelets is 579,000. Sodium 136, potassium 4.4, chloride 102, bicarbonate 26, BUN 17, creatinine 0.8, and glucose 99. Hemoglobin A1c 6.9. CULTURES: Blood culture x1 is Staph coagulase negative. Influenza A and B tests are negative. Urine culture growing yeast species. Chest x-ray showed no acute finding. UA showed wbc of 40 to 60 and leukocyte esterase 3+. IMPRESSION: 1. Sepsis. 2. Systemic inflammatory response syndrome with leukocytosis and tachycardia, doing better. 3. Fungal urinary tract infection. 4. Positive blood culture for coagulase-negative Staphylococcus likely contamination. 5. Ventilator-dependent respiratory failure. 6. Severe encephalopathy and vegetative state. 7. Hepatosplenomegaly, fine on previous admission CT scan. 8. Diabetes mellitus. 9. Hypertension. RECOMMENDATION: We will continue Zosyn. We will discontinue intravenous vancomycin. We will start on fluconazole. We will follow up the cultures. At the end of my exam, I thank Dr. Wakefield for involving me in the care of this patient. John Elizalde M.D. DR: KATE JOB#: [id number] CC:
--- NOTE | 2018-09-29 19:10 | NUR ---
HAND-OFF: Report given to Vane JORGENSEN.
--- NOTE | 2018-09-29 19:15 | NUR ---
NURSE NOTES: Received report from Leni RN, pt. in bed with eyes open, obtunded- non-verbal, no signs of acute cardiac or respiratory distress noted, bed in lowest position and call light within easy reach, bed alarm on side rails up x's3 and safety brakes engaged, pt. appears to be sating well on current vent settings at AC 16, TV 600, Fio2 at 40% and peep of 5%- no respiratory distress noted, Glucerna 1.2 running via g- tube at 55cc/hr- goal is 55cc/hr- no residual noted. Condom cath intact and draining to gravity, Dressings dry and intact, Left hand 22G and RFA 20G running NS at 100cc/hr- IV intact and patent. Oral care provided, comfort measures provided, Safety measure continued, will continue with plan of care. Addendum: 09/29/18 at 1939 by JB SRINIVASAN RN RN side rails padded for seizure precautions- no seizure activity noted during assessment- will continue to monitor patient and with plan of care.
[2018-09-29 20:00] VITALS: BP 115/67
[2018-09-30] VITALS: BP 105/61
[2018-09-30] MEDS: Piperacillin/Tazobactam 3.375 GM in NS 110 ML IVPB SCH ×3 (03:02→20:30)
[2018-09-30 04:00] VITALS: BP 115/67
[2018-09-30] MEDS: NovoLOG Insulin Flexpen SUBQ SCH ×4 (05:18→23:17)
--- NOTE | 2018-09-30 06:35 | NUR ---
RESPIRATORY NOTE: Pt received on mechanical ventilator, and patient is a trach patient with Portex 9. Settings AC 600, 16, 40%, +5. Patient is a full code with AMBU bag bedside, patient's alarms are set and audible. Will continue to monitor and maintain a patent airway.
--- NOTE | 2018-09-30 07:03 | NUR ---
HAND-OFF: Report given to Leni RN, pt. stable and no signs of distress noted.
--- NOTE | 2018-09-30 07:05 | NUR ---
NURSE NOTES: Report received from Vane PAK.Pt resting in bed asleep noted no resp distress ,continue on vent at same settings to trache tube ,no signs of pain or discomfort,SR on the monitor,GTF Glucerna 1.2 at 55 ml/hr,no residual,condom cath in placed ,iv sites intact ,LH and RFA with IVF NS at 100 ml/hr,skin warm and dry ,SR up x2 HOB elevated,bed lock in lowest position will continue with plans of care.
[2018-09-30 08:00] VITALS: BP 107/69
[2018-09-30] MEDS: Fluconazole 100mg tab GT SCH (09:39)
[2018-09-30] MEDS: carBAMazepine 200mg tab GT SCH ×2 (09:39→20:31)
[2018-09-30] MEDS: Aspirin Baby 81mg GT SCH (09:40)
[2018-09-30] MEDS: Ferrous Sulfate 300 MG/5 ML UDC GT SCH ×2 (09:40→18:04)
[2018-09-30] MEDS: Docusate 100mg/10ml Liq GT SCH (09:40)
[2018-09-30] MEDS: Valproic Acid 250mg/5ml Liquid GT SCH ×2 (09:41→20:31)
--- NOTE | 2018-09-30 10:12 | Infectious Diseases Prog Note ---
Assessment/Plan Assessment/Plan antibiotics : zosyn, fluconazole A 1. fungal UTI 2. + blood cultures with coag neg staph likely contaminated 3. leucocytosis resolved 4. respiratory failure Subjective ROS Limited/Unobtainable: Yes Allergies: Coded Allergies: No Known Allergies (Unverified , 07/21/16) Objective Vital Signs Last 24 Hour Vital Signs Date Time Temp Pulse Resp B/P (MAP) Pulse Ox O2 Delivery O2 Flow Rate FiO2 09/30/18 09:07 74 16 40 40 09/30/18 08:00 Mechanical Ventilator 09/30/18 08:00 40 09/30/18 08:00 98.2 82 16 107/69 (82) 98 09/30/18 07:15 69 16 40 40 09/30/18 05:06 76 16 40 40 09/30/18 04:00 Mechanical Ventilator 09/30/18 04:00 40 09/30/18 04:00 97.7 78 16 115/67 (83) 100 09/30/18 04:00 85 09/30/18 03:29 72 16 40 40 09/30/18 01:31 81 16 40 40 09/30/18 00:00 40 09/30/18 00:00 97.0 81 16 105/61 (76) 97 09/30/18 00:00 Mechanical Ventilator 09/30/18 00:00 80 09/29/18 22:50 88 16 40 40 09/29/18 20:30 85 21 50 40 09/29/18 20:00 40 09/29/18 20:00 98.1 90 18 115/67 (83) 98 09/29/18 20:00 79 09/29/18 20:00 Mechanical Ventilator 09/29/18 19:05 84 17 40 40 09/29/18 17:03 87 17 40 09/29/18 16:04 Mechanical Ventilator 09/29/18 16:03 40 09/29/18 16:00 75 09/29/18 16:00 98.1 74 16 103/57 (72) 98 09/29/18 14:54 92 17 40 09/29/18 13:00 93 16 40 09/29/18 12:00 97.7 84 16 106/64 (78) 98 09/29/18 12:00 81 09/29/18 12:00 Mechanical Ventilator 09/29/18 12:00 40 09/29/18 11:01 98 18 40 Height (Feet): 5 Height (Inches): 6.00 Weight (Pounds): 151 HEENT: status post trach Respiratory/Chest: lungs clear Cardiovascular: normal rate, regular rhythm, no gallop/murmur Abdomen: soft, non tender, other - GT Extremities: no edema Microbiology Date/Time Source Procedure Growth Status 09/27/18 19:00 Blood Blood Culture - Preliminary NO GROWTH AFTER 24 HOURS Resulted 09/27/18 18:45 Blood Blood Culture - Final Staphylococcus Sp Coag Neg Complete 09/27/18 20:30 Nasal Nares Influenza Types A,B Antigen (TREASURE) - Final Complete 09/27/18 23:00 Urine,Clean Catch Urine Culture - Preliminary Yeast Species Resulted 09/27/18 18:45 Rectum VRE Culture - Final NO VANCOMYCIN RESISTANT ENTEROCOCCUS ... Resulted 09/27/18 18:45 Rectum Pending Resulted Current Medications Medications (Trade) Dose Ordered Sig/Guillermo Route PRN Reason Start Time Stop Time Status Last Admin Dose Admin Acetaminophen (Tylenol) 650 mg Q4H PRN GT Mild Pain/Temp > 100.5 09/28/18 19:00 10/28/18 05:14 Aspirin (ASA) 81 mg DAILY GT 09/28/18 09:00 10/28/18 08:59 09/30/18 09:40 Carbamazepine (TEGretol) 600 mg TWICE A DAY GT 09/28/18 09:00 10/28/18 08:59 09/30/18 09:39 Dextrose (Dextrose 50%) 25 ml Q30M PRN IV Hypoglycemia 09/28/18 06:00 10/28/18 05:59 Dextrose (Dextrose 50%) 50 ml Q30M PRN IV Hypoglycemia 09/28/18 06:00 10/28/18 05:59 Docusate Sodium (Colace) 100 mg DAILY GT 09/29/18 09:00 10/28/18 08:59 09/30/18 09:40 Epoetin Grabiel (Epoetin Grabiel-EPBX(NON ESRD)) 10,000 unit MON-WED-FRI SUBQ 09/28/18 21:00 10/28/18 20:59 09/28/18 21:34 Ferrous Sulfate (Feosol) 325 mg BID GT 09/28/18 09:00 10/28/18 08:59 09/30/18 09:40 Fluconazole (Diflucan) 200 mg DAILY GT 09/29/18 12:30 10/06/18 12:29 09/30/18 09:39 Insulin Aspart (NovoLOG) Q6HR SUBQ 09/28/18 18:00 10/28/18 17:59 09/30/18 05:18 Levetiracetam (Keppra) 500 mg EVERY 12 HOURS GT 09/28/18 09:00 10/28/18 08:59 09/30/18 09:40 Lorazepam (Ativan 2mg/ml 1ml) 1 mg Q2H PRN IV For Seizures 09/28/18 05:15 10/05/18 05:14 Magnesium Hydroxide (Mom) 30 ml DAILY PRN GT Constipation 09/28/18 05:45 10/28/18 05:44 Midodrine (Pro-Amatine) 2.5 mg THREE TIMES A DAY GT 09/28/18 09:00 10/28/18 08:59 09/30/18 09:40 Piperacillin Sod/ Tazobactam Sod 3.375 gm/Sodium Chloride 110 ml @ 27.5 mls/hr Q8HR@0400,1200,2000 IVPB 09/28/18 20:00 10/05/18 19:59 09/30/18 03:02 Sodium Chloride 1,000 ml @ 100 mls/hr Q10H IV 09/28/18 06:00 10/28/18 05:59 09/30/18 05:19 Valproic Acid (Depakene) 1,200 mg BID GT 09/28/18 09:00 10/28/18 08:59 09/30/18 09:41 Tracie Isaac MD Sep 30, 2018 10:12
--- NOTE | 2018-09-30 11:46 | NUR ---
Social Service Note TOBI spoke with Dr. Wakefield, impending dc plan this weekend. TOBI faxed [facility] [phone] (p) [phone] (f). Will follow up. Addendum: 09/30/18 at 1221 by KAVON TORRES Patient accepted for placement for this weekend if appropriate, to room 204-A under residential care.
[2018-09-30 12:00] VITALS: BP 119/74
--- NOTE | 2018-09-30 13:00 | NUR ---
NURSE NOTES: Pt stable no resp distress noted,oral /tracheal secretions suctioned ,turned and repositioned.
--- NOTE | 2018-09-30 13:27 | NUR ---
NURSE NOTES:WOUND CARE FOLLOW-UP NOTES: Sacrum is dry with pale pink hyperpigmentation. Hyperpigmentation noted to L ischium. Bilat heels and plantar aspects boggy with non-blanchable erythema. Cavilon SKin Barrier applied to both heels and plantar aspects .Each heel including plantar aspects covered with Optifoam drsgs. Both heels off-loaded with pillow. Pt has an APM/LOWELL mattress and observed properly positioned with pillows. Skin under trach collar without evidence of skin breakdown. Tx.Plan:Apply Cavilon Skin Barrier to Both heels including plantar aspects .Cover each heel with Optifoam drsgs. Off-load heels with pillow. Apply Moisture Barrier Paste to sacrum and ischial areas. Cover with Optifoam drsgs .Change every 3 days and prn . APM/LOWELL Mattress. Reposition at least every 2hours or as tolerated. Place pillow between knees.
--- NOTE | 2018-09-30 14:04 | NUR ---
RD ASSESSMENT & RECOMMENDATIONS SEE CARE ACTIVITY FOR COMPLETE ASSESSMENT DAILY ESTIMATED NEEDS: Needs based on Underwt, wound, Critical care (63kg) 25-30 kcals/kg 4726-3011 total kcals 1.25-2 g protein/kg 79-126 g total protein 25-30 mL/kg 6758-0715 total fluid mLs NUTRITION DIAGNOSIS: 1) Increased kcal, prot, needs R/T sepsis, underweight status as evidenced by pt w/ elev WBC, tmax of 101.0 -> now afebrile, pt w/ BMI 17.0, 69% IBW. 2) Difficulty swallowing R/T resp status as evidenced by pt vent dependent via trach w/PEG. 3) Altered nutrition related lab values R/T h/o DM, uncontrolled BGs as evidenced by POC glu ([phone]). CURRENT TF:Glucerna 1.2 @ 55ml/hr x 24 hrs ENTERAL NUTRITION RECOMMENDATIONS: Glucerna 1.2 @ 55ml/hr x 24 hrs to provide 1320ml, 1584kcal, 79g prot, 1063ml free water * Maintain current TF * HOB >30 degrees/H20 flush per MD ADDITIONAL RECOMMENDATIONS: 1) PER SNF (09/07/18) pt is: 6'4" tall and 139# (63.2kg) 2) Wound care: Marcelino 1 pkt BID 3) Monitor lytes, need for TF change 4) Weekly calibrated bed scale wts 5) Rec long acting insulin for improved BG control . .
--- NOTE | 2018-09-30 14:49 | NUR ---
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 98.4 HR 81 RR 77 B/P 117/74 AC 16 TV 600 FIO2 40% PEEP 5 IS: ZOSYN IV DIFLUCAN GT TEGRETOL GT IVF NS @ 100ML/HR STEP DOWN STATUS
[2018-09-30 16:00] VITALS: BP 143/82
[2018-09-30] MEDS ORDERED: NS 275ml ONE (16:38)
--- NOTE | 2018-09-30 19:00 | NUR ---
HAND-OFF: Report given to Cherelle PAK.
--- NOTE | 2018-09-30 19:08 | Pulmonology Progress Note ---
Assessment/Plan Assessment/Plan Pulmonary Progress Note Assessment/Plan IMPRESSION anemia agitation seizures tachycardia leukocytosis respiratory failure trach gt PLAN iv hydration epogen snf meds antibiotics ID clearance seizure precautions dc to snf once stable impression, plan, and exam edited and reviewed in detail care discussed with RN Subjective Allergies: Coded Allergies: No Known Allergies (Unverified , 07/21/16) Subjective cultures noted Objective Vital Signs Noted Height (Feet): 5 Height (Inches): 6.00 Weight (Pounds): 151 Objective WDWN NAD trach clear breath sounds bilaterally without rhonchi or wheeze [id number] without MRG NABS nontender Gt no CCE contractures nonfocal Subjective ROS Limited/Unobtainable: No Allergies: Coded Allergies: No Known Allergies (Unverified , 07/21/16) Objective Last 24 Hour Vital Signs Date Time Temp Pulse Resp B/P (MAP) Pulse Ox O2 Delivery O2 Flow Rate FiO2 09/30/18 16:48 80 17 40 40 09/30/18 16:00 68 09/30/18 16:00 99.0 95 21 143/82 (102) 97 09/30/18 16:00 40 09/30/18 16:00 Mechanical Ventilator 09/30/18 15:05 71 16 40 40 09/30/18 13:11 60 17 40 40 09/30/18 12:00 98.4 81 16 119/74 (89) 98 09/30/18 12:00 Mechanical Ventilator 09/30/18 12:00 40 09/30/18 12:00 77 09/30/18 10:51 78 17 40 40 09/30/18 09:07 74 16 40 40 09/30/18 08:00 Mechanical Ventilator 09/30/18 08:00 40 09/30/18 08:00 79 09/30/18 08:00 98.2 82 16 107/69 (82) 98 09/30/18 07:15 69 16 40 40 09/30/18 05:06 76 16 40 40 09/30/18 04:00 Mechanical Ventilator 09/30/18 04:00 40 09/30/18 04:00 97.7 78 16 115/67 (83) 100 09/30/18 04:00 85 09/30/18 03:29 72 16 40 40 09/30/18 01:31 81 16 40 40 09/30/18 00:00 40 09/30/18 00:00 97.0 81 16 105/61 (76) 97 09/30/18 00:00 Mechanical Ventilator 09/30/18 00:00 80 09/29/18 22:50 88 16 40 40 09/29/18 20:30 85 21 50 40 09/29/18 20:00 40 09/29/18 20:00 98.1 90 18 115/67 (83) 98 09/29/18 20:00 79 09/29/18 20:00 Mechanical Ventilator Intake and Output 09/29/18 09/30/18 19:00 07:00 Intake Total 1137.5 ml 1986.0 ml Output Total 3 ml 350 ml Balance 1134.5 ml 1636.0 ml Free Water 200 ml 50 ml IV Total 127.5 ml 1276.0 ml Tube Feeding 570 ml 660 ml Other 240 ml Output Urine Total 3 ml 350 ml Microbiology Date/Time Source Procedure Growth Status 09/27/18 20:30 Nasal Nares Influenza Types A,B Antigen (TREASURE) - Final Complete 09/27/18 23:00 Urine,Clean Catch Urine Culture - Preliminary Yeast Species Resulted Current Medications Medications (Trade) Dose Ordered Sig/Guillermo Route PRN Reason Start Time Stop Time Status Last Admin Dose Admin Acetaminophen (Tylenol) 650 mg Q4H PRN GT Mild Pain/Temp > 100.5 09/28/18 19:00 10/28/18 05:14 Aspirin (ASA) 81 mg DAILY GT 09/28/18 09:00 10/28/18 08:59 09/30/18 09:40 Carbamazepine (TEGretol) 600 mg Q12HR GT 09/30/18 21:00 10/28/18 08:59 Dextrose (Dextrose 50%) 25 ml Q30M PRN IV Hypoglycemia 09/28/18 06:00 10/28/18 05:59 Dextrose (Dextrose 50%) 50 ml Q30M PRN IV Hypoglycemia 09/28/18 06:00 10/28/18 05:59 Docusate Sodium (Colace) 100 mg DAILY GT 09/29/18 09:00 10/28/18 08:59 09/30/18 09:40 Epoetin Grabiel (Epoetin Grabiel-EPBX(NON ESRD)) 10,000 unit WED-WED-WED SUBQ 09/28/18 21:00 10/28/18 20:59 09/28/18 21:34 Ferrous Sulfate (Feosol) 325 mg BID GT 09/28/18 09:00 10/28/18 08:59 09/30/18 18:04 Fluconazole (Diflucan) 200 mg DAILY GT 09/29/18 12:30 10/06/18 12:29 09/30/18 09:39 Insulin Aspart (NovoLOG) Q6HR SUBQ 09/28/18 18:00 10/28/18 17:59 09/30/18 18:12 Levetiracetam (Keppra) 500 mg EVERY 12 HOURS GT 09/28/18 09:00 10/28/18 08:59 09/30/18 09:40 Lorazepam (Ativan 2mg/ml 1ml) 1 mg Q2H PRN IV For Seizures 09/28/18 05:15 10/05/18 05:14 Magnesium Hydroxide (Mom) 30 ml DAILY PRN GT Constipation 09/28/18 05:45 10/28/18 05:44 Midodrine (Pro-Amatine) 2.5 mg THREE TIMES A DAY GT 09/28/18 09:00 10/28/18 08:59 09/30/18 18:04 Piperacillin Sod/ Tazobactam Sod 3.375 gm/Sodium Chloride 110 ml @ 27.5 mls/hr Q8HR@0400,1200,2000 IVPB 09/28/18 20:00 10/05/18 19:59 09/30/18 12:23 Sodium Chloride 1,000 ml @ 100 mls/hr Q10H IV 09/28/18 06:00 10/28/18 05:59 09/30/18 18:03 Valproic Acid (Depakene) 1,200 mg Q12HR GT 09/30/18 21:00 10/28/18 08:59 Jl Ash MD Sep 30, 2018 19:08
--- NOTE | 2018-09-30 19:15 | NUR ---
NURSE NOTES: Received report from Leni RN, pt. in bed with eyes open, obtunded- non-verbal, no signs of acute cardiac or respiratory distress noted, cardiac monitoring on, bed in lowest position and call light within easy reach, bed alarm on side rails up x's3 and safety brakes engaged, pt. appears to be sating well on current vent settings at AC 16, TV 600, Fio2 at 40% and peep of 5%- no respiratory distress noted, Glucerna 1.2 running via G- Tube at 55cc/hr- at goal-no residual noted. Condom cath intact and draining to gravity, Side rails padded for seizure precautions. Dressings dry and intact, Left hand 22G and RFA 20G running NS at 100cc/hr- IV intact and patent. Oral care provided, comfort measures provided, Safety measure continued, will continue with plan of care.
[2018-09-30 20:00] VITALS: BP 128/92
--- NOTE | 2018-09-30 20:27 | NUR ---
RESPIRATORY NOTE: Received pt. on 840 vent. Vent settings are: A/C rate of 16, VT 600, FI02 40%, PEEP +5. No respiratory distress noted, pt. Sp02 @ 99%. Ambu bag @ BS. Vent plugged on red outlet. Will continue to monitor pt.
--- NOTE | 2018-09-30 20:53 | NUR ---
NURSE NOTES: Received report from Leni RN, pt. in bed with eyes open, obtunded- non-verbal, no signs of acute cardiac or respiratory distress noted, cardiac monitoring on, bed in lowest position and call light within easy reach, bed alarm on side rails up x's3 and safety brakes engaged, pt. appears to be sating well on current vent settings at AC 16, TV 600, Fio2 at 40% and peep of 5%- no respiratory distress noted, Glucerna 1.2 running via G- Tube at 55cc/hr- at goal-no residual noted. Condom cath intact and draining to gravity, Dressings dry and intact, Left hand 22G and RFA 20G running NS at 100cc/hr- IV intact and patent. Oral care provided, comfort measures provided, Safety measure continued, will continue with plan of care. Addendum: 09/30/18 at 2057 by JB SRINIVASAN RN RN side rails padded for seizure precautions- no seizure activity noted. Addendum: 09/30/18 at 2101 by JB SRINIVASAN RN RN correction to msg above report was given at 19:15.
[2018-09-30] MEDS: Epoetin Alfa-EPBX (NON ESRD)10,000 unit/ml vial SUBQ SCH (21:11)
[2018-10-01] VITALS: BP 122/67
[2018-10-01 04:00] VITALS: BP 110/73
[2018-10-01] MEDS: Piperacillin/Tazobactam 3.375 GM in NS 110 ML IVPB SCH ×3 (04:11→19:59)
[2018-10-01] MEDS: NovoLOG Insulin Flexpen SUBQ SCH ×3 (05:08→18:07)
--- NOTE | 2018-10-01 07:17 | NUR ---
HAND-OFF: Report given to Dick Roland Rn, pt. stable and no signs of distress noted.
--- NOTE | 2018-10-01 07:29 | NUR ---
NURSE NOTES: Received report from PASHA Mitchell. Patient is resting in bed, in stable condition. No s/sx of SOB, breathing is even and unlabored, mechanical vent settings are as ordered. Observed no presence of pain or discomfort at this time. Bed is in lowest position, brakes engaged. Call light is kept within easy reach. Will continue to monitor patient.
[2018-10-01 08:00] VITALS: BP 125/72
[2018-10-01] MEDS: Ferrous Sulfate 300 MG/5 ML UDC GT SCH ×2 (08:53→18:07)
[2018-10-01] MEDS: Fluconazole 100mg tab GT SCH (08:54)
[2018-10-01] MEDS: Docusate 100mg/10ml Liq GT SCH (08:54)
[2018-10-01] MEDS: Aspirin Baby 81mg GT SCH (08:54)
[2018-10-01] MEDS: carBAMazepine 200mg tab GT SCH ×2 (08:54→20:40)
[2018-10-01] MEDS: Valproic Acid 250mg/5ml Liquid GT SCH ×2 (08:55→20:40)
--- NOTE | 2018-10-01 11:02 | NUR ---
RESPIRATORY NOTE: Increased patients Fio2 from 40% to 60% due to desat. Patient is a little bit tachypnic, will continue to monitor.
[2018-10-01 12:00] VITALS: BP 133/79
--- NOTE | 2018-10-01 12:30 | NUR ---
NURSE NOTES: Patient's blood sugar noted at 451 mg/dL, administered sliding scale novolog. Contacted and left message for Dr. Wakefield regarding situation. Awaiting call back. Will continue to monitor patient.
--- NOTE | 2018-10-01 12:54 | General Progress Note ---
Assessment/Plan Problem List: (1) Vegetative state ICD Codes: R40.3 - Persistent vegetative state SNOMED: 37109018, 914227279 (2) Seizure disorder ICD Codes: G40.909 - Epilepsy, unspecified, not intractable, without status epilepticus SNOMED: 079219048 (3) Tachycardia ICD Codes: R00.0 - Tachycardia, unspecified SNOMED: 2987754 (4) Lactic acid acidosis ICD Codes: E87.2 - Acidosis SNOMED: 50102736 (5) Severe sepsis ICD Codes: A41.9 - Sepsis, unspecified organism; R65.20 - Severe sepsis without septic shock SNOMED: 96351580 Status: stable, progressing Assessment/Plan vent support resp rx gt feeds sz rx abx per id wound care Subjective ROS Limited/Unobtainable: Yes Constitutional: Reports: malaise, weakness HEENT: Reports: no symptoms Cardiovascular: Reports: no symptoms Respiratory: Reports: no symptoms Gastrointestinal/Abdominal: Reports: no symptoms Genitourinary: Reports: no symptoms Neurologic/Psychiatric: Reports: pre-existing deficit, seizure Endocrine: Reports: no symptoms Hematologic/Lymphatic: Reports: anemia Allergies: Coded Allergies: No Known Allergies (Unverified , 07/21/16) All Systems: reviewed and negative except above Subjective no events. stable on the vent. poorly responsive. no fever or chills. Objective Last 24 Hour Vital Signs Date Time Temp Pulse Resp B/P (MAP) Pulse Ox O2 Delivery O2 Flow Rate FiO2 10/01/18 11:00 112 28 60 40 10/01/18 09:29 100 20 40 40 10/01/18 08:00 Mechanical Ventilator 10/01/18 08:00 40 10/01/18 08:00 99.5 101 14 125/72 (89) 94 10/01/18 07:07 97 17 40 40 10/01/18 05:01 87 17 40 40 10/01/18 04:00 97.6 87 16 110/73 (85) 94 10/01/18 04:00 Mechanical Ventilator 10/01/18 04:00 40 10/01/18 04:00 87 10/01/18 02:34 97 22 40 40 10/01/18 01:28 99 22 40 40 10/01/18 00:00 40 10/01/18 00:00 97.7 87 21 122/67 (85) 95 10/01/18 00:00 77 10/01/18 00:00 Mechanical Ventilator 09/30/18 23:01 95 16 40 40 09/30/18 21:30 72 16 40 40 09/30/18 20:00 40 09/30/18 20:00 97.7 85 19 128/92 (104) 99 09/30/18 20:00 Mechanical Ventilator 09/30/18 20:00 80 09/30/18 19:30 70 16 40 40 09/30/18 16:48 80 17 40 40 09/30/18 16:00 68 09/30/18 16:00 99.0 95 21 143/82 (102) 97 09/30/18 16:00 40 09/30/18 16:00 Mechanical Ventilator 09/30/18 15:05 71 16 40 40 09/30/18 13:11 60 17 40 40 Intake and Output 09/30/18 10/01/18 19:00 07:00 Intake Total 2004.5 ml 2064.0 ml Output Total 1303 ml 350 ml Balance 701.5 ml 1714.0 ml Free Water 200 ml 50 ml IV Total 1024.5 ml 1354.0 ml Tube Feeding 660 ml 660 ml Other 120 ml Output Urine Total 1303 ml 350 ml Stool Total 0 ml Height (Feet): 5 Height (Inches): 6.00 Weight (Pounds): 151 General Appearance: WD/WN, lethargic, confused Cardiovascular: normal rate Respiratory/Chest: rhonchi - bilaterally Abdomen: normal bowel sounds, non tender, soft Edema: no edema noted Arm (L), no edema noted Arm (R), no edema noted Leg (L), no edema noted Leg (R), no edema noted Pedal (L), no edema noted Pedal (R), no edema noted Generalized Neurologic: disoriented, unresponsive Akhil Burkett MD Oct 01, 2018 12:54
--- NOTE | 2018-10-01 15:00 | NUR ---
NURSE NOTES: Contacted and spoke with mariluz Shaw MD of situation "Patient desaturates SpO2 80% to 95% unsustained. Patient is on mechanical vent, settings of AC 16, tidal volume 600, FiO2 60%. Current vital signs are: BP 130/84 HR 127 Sinus Tachycardia, RR 33, EqP261%, Temperature 100.[address] Wakefield acknowledged and ordered STAT chest x-ray. Order entered, noted, and carried out. Will continue to monitor patient. Addendum: 10/01/18 at 1929 by ANEESH JORDAN RN NURSE NOTES: Correction: "SpO2 93%"
--- NOTE | 2018-10-01 15:44 | Diagnostic Imaging Report ---
EXAM: XR Chest, 1 View CLINICAL HISTORY: DYSPNEA TECHNIQUE: Frontal view of the chest. COMPARISON: . FINDINGS: Interval development of extensive opacification of the left hemithorax. Suspect a combination of pleural fluid and atelectasis/consolidation. Right lung remains clear. Redemonstrated tracheostomy. Chronic right shoulder deformities IMPRESSION: Interval development of extensive opacification of the left hemithorax. Suspect a combination of pleural fluid and atelectasis/consolidation.
[2018-10-01 16:00] VITALS: BP 117/74
--- NOTE | 2018-10-01 17:05 | NUR ---
NURSE NOTES: Contacted Dr. Wakefield and informed MD of impressions of chest x-ray, impressions: "Interval development of extensive opacification of the left hemithorax. Suspected a combination of pleural fluid and atelectasis/consolidation." Dr. Wakefield acknowledged and ordered "US Asp Inj Thoracentesis of left lung." Order entered,noted, and carried out. Will continue to monitor patient.
--- NOTE | 2018-10-01 19:29 | NUR ---
HAND-OFF: Report given to PASHA Dean.
[2018-10-01 20:00] VITALS: BP 133/74
[2018-10-02] VITALS: BP 123/65
--- NOTE | 2018-10-02 | NUR ---
NURSE NOTES: Patient repositioned, Suctioned and oral care, fever of 100.0F, other vitals stables.
--- NOTE | 2018-10-02 02:00 | NUR ---
NURSE NOTES: Patient repositioned, cooling blanket applied. Fever of 102.1F.
[2018-10-02 04:00] VITALS: BP 133/74
[2018-10-02] MEDS: Piperacillin/Tazobactam 3.375 GM in NS 110 ML IVPB SCH ×3 (04:00→20:20)
--- NOTE | 2018-10-02 04:00 | NUR ---
NURSE NOTES: NAD at this time, temperature 98.9F, Patient cleaned and repositioned. Will continue to monitor.
[2018-10-02] MEDS: NovoLOG Insulin Flexpen SUBQ SCH ×4 (06:22→17:40)
--- NOTE | 2018-10-02 06:59 | NUR ---
RESPIRATORY NOTE: Patient received mechanically ventilated on PB 840 with current ordered vent settings. Patient has trach size 9.0 Portex cuffed that is secured with trach tie and guard. There are bilateral coarse breath sounds noted and moderate amount of thick green/yellow and benitez secretions were suctioned via inline suction system without incident. Vent alarms are functional and audible. There is an ambu bag available at the bedside and the vent is connected to a red outlet. Patient appears comfortable. at this time. Will continue to monitor.
--- NOTE | 2018-10-02 07:14 | NUR ---
HAND-OFF: Report given to Luan PAK
[2018-10-02 08:00] VITALS: BP 106/77
[2018-10-02] MEDS: Ferrous Sulfate 300 MG/5 ML UDC GT SCH ×2 (09:35→17:39)
[2018-10-02] MEDS: Valproic Acid 250mg/5ml Liquid GT SCH ×2 (09:35→20:20)
[2018-10-02] MEDS: Fluconazole 100mg tab GT SCH (09:36)
[2018-10-02] MEDS: Aspirin Baby 81mg GT SCH (09:36)
[2018-10-02] MEDS: carBAMazepine 200mg tab GT SCH ×2 (09:36→20:21)
[2018-10-02] MEDS: Docusate 100mg/10ml Liq GT SCH (09:36)
--- NOTE | 2018-10-02 10:59 | Infectious Diseases Prog Note ---
Assessment/Plan Assessment/Plan A: 1. Sepsis. 2. Pneumonia/ Pleural effusion 3. Fungal urinary tract infection. 4. Positive blood culture for coagulase-negative Staphylococcus likely contamination. 5. Ventilator-dependent respiratory failure. 6. Severe encephalopathy and vegetative state. 7. Hepatosplenomegaly, fine on previous admission CT scan. 8. Diabetes mellitus. 9. Hypertension. P: continue Zosyn & Fluconazole will have thoracentesis tomorrow Subjective ROS Limited/Unobtainable: Yes Constitutional: Reports: fever, other - [id number]=[id number] Allergies: Coded Allergies: No Known Allergies (Unverified , 07/21/16) Objective Vital Signs Last 24 Hour Vital Signs Date Time Temp Pulse Resp B/P (MAP) Pulse Ox O2 Delivery O2 Flow Rate FiO2 10/02/18 08:50 77 16 60 10/02/18 08:00 40 10/02/18 08:00 Mechanical Ventilator 10/02/18 08:00 98.2 76 24 106/77 (87) 100 10/02/18 06:55 80 16 60 10/02/18 04:55 79 16 60 40 10/02/18 04:00 98 10/02/18 04:00 99.8 101 24 133/74 (93) 100 10/02/18 04:00 Mechanical Ventilator 10/02/18 04:00 40 10/02/18 03:10 83 16 60 40 10/02/18 02:00 102.1 10/02/18 01:13 100 17 60 40 10/02/18 00:00 Mechanical Ventilator 10/02/18 00:00 40 10/02/18 00:00 103 10/02/18 00:00 100.5 111 18 123/65 (84) 100 10/01/18 22:59 110 24 60 40 10/01/18 22:00 102 24 60 40 10/01/18 20:00 111 10/01/18 20:00 Mechanical Ventilator 10/01/18 20:00 100.0 111 22 133/74 (93) 98 10/01/18 20:00 40 10/01/18 19:22 102 26 60 40 10/01/18 17:10 112 20 60 40 10/01/18 16:00 Mechanical Ventilator 10/01/18 16:00 40 10/01/18 16:00 119 10/01/18 16:00 98.2 101 21 117/74 (88) 95 10/01/18 14:56 98.2 10/01/18 14:50 124 30 60 40 10/01/18 13:13 121 20 60 40 10/01/18 13:04 99.1 10/01/18 12:00 99.1 109 25 133/79 (97) 95 10/01/18 12:00 40 10/01/18 12:00 114 10/01/18 12:00 Mechanical Ventilator 10/01/18 11:00 112 28 60 40 Height (Feet): 5 Height (Inches): 6.00 Weight (Pounds): 151 HEENT: status post trach Respiratory/Chest: lungs clear, other - on ventilator Cardiovascular: normal rate Abdomen: soft, non tender, other - GT feeding Extremities: no edema Skin: ulcers Neurologic/Psychiatric: unresponsiveness, aphasia Current Medications Medications (Trade) Dose Ordered Sig/Guillermo Route PRN Reason Start Time Stop Time Status Last Admin Dose Admin Acetaminophen (Tylenol) 650 mg Q4H PRN GT Mild Pain/Temp > 100.5 09/28/18 19:00 10/28/18 05:14 10/01/18 12:34 Aspirin (ASA) 81 mg DAILY GT 09/28/18 09:00 10/28/18 08:59 10/02/18 09:36 Carbamazepine (TEGretol) 600 mg Q12HR GT 09/30/18 21:00 10/28/18 08:59 10/02/18 09:36 Dextrose (Dextrose 50%) 25 ml Q30M PRN IV Hypoglycemia 09/28/18 06:00 10/28/18 05:59 Dextrose (Dextrose 50%) 50 ml Q30M PRN IV Hypoglycemia 09/28/18 06:00 10/28/18 05:59 Docusate Sodium (Colace) 100 mg DAILY GT 09/29/18 09:00 10/28/18 08:59 10/02/18 09:36 Epoetin Grabiel (Epoetin Grabiel-EPBX(NON ESRD)) 10,000 unit WED-WED-WED SUBQ 09/28/18 21:00 10/28/18 20:59 09/30/18 21:11 Ferrous Sulfate (Feosol) 325 mg BID GT 09/28/18 09:00 10/28/18 08:59 10/02/18 09:35 Fluconazole (Diflucan) 200 mg DAILY GT 09/29/18 12:30 10/06/18 12:29 10/02/18 09:36 Insulin Aspart (NovoLOG) Q6HR SUBQ 09/28/18 18:00 10/28/18 17:59 10/02/18 06:22 Levetiracetam (Keppra) 500 mg EVERY 12 HOURS GT 09/28/18 09:00 10/28/18 08:59 10/02/18 09:36 Lorazepam (Ativan 2mg/ml 1ml) 1 mg Q2H PRN IV For Seizures 09/28/18 05:15 10/05/18 05:14 10/01/18 13:44 Magnesium Hydroxide (Mom) 30 ml DAILY PRN GT Constipation 09/28/18 05:45 10/28/18 05:44 Midodrine (Pro-Amatine) 2.5 mg THREE TIMES A DAY GT 09/28/18 09:00 10/28/18 08:59 10/02/18 09:36 Piperacillin Sod/ Tazobactam Sod 3.375 gm/Sodium Chloride 110 ml @ 27.5 mls/hr Q8HR@0400,1200,2000 IVPB 09/28/18 20:00 10/05/18 19:59 10/02/18 04:00 Sodium Chloride 1,000 ml @ 100 mls/hr Q10H IV 09/28/18 06:00 10/28/18 05:59 10/02/18 09:37 Valproic Acid (Depakene) 1,200 mg Q12HR GT 09/30/18 21:00 10/28/18 08:59 10/02/18 09:35 John Elizalde MD Oct 02, 2018 10:59
[2018-10-02] MEDS ORDERED: NS 275ml ONE (11:34)
[2018-10-02 12:00] VITALS: BP 114/68
--- NOTE | 2018-10-02 12:34 | NUR ---
CASE MANAGEMENT: REVIEW 10/02/2018 SI:SEPSIS. T 98.2 HR 76 RR 24 B/P 106/77 SATS 100% ON MECH VENT FiO2 40 NO LABS TODAY IS: IVF @ 100 mL/HR KEPPRA GT Q12H FEOSOL GT BID ASA GT QD DIFLUCAN GT QD TEGRETOL GT 12H DEPAKENE GT Q12H INSULIN ASPART SUBQ Q6H ZOSYN IV Q8H STEP DOWN UNIT DCP: PATIENT TO BE DISCHARGED TO [facility] ONCE MEDICALLY CLEARED. PLAN OF CARE: US ASP CXR
--- NOTE | 2018-10-02 13:40 | General Progress Note ---
Assessment/Plan Problem List: (1) Vegetative state ICD Codes: R40.3 - Persistent vegetative state SNOMED: 59726437, 140891003 (2) Seizure disorder ICD Codes: G40.909 - Epilepsy, unspecified, not intractable, without status epilepticus SNOMED: 941679030 (3) Tachycardia ICD Codes: R00.0 - Tachycardia, unspecified SNOMED: 3930677 (4) Lactic acid acidosis ICD Codes: E87.2 - Acidosis SNOMED: 84942859 (5) Severe sepsis ICD Codes: A41.9 - Sepsis, unspecified organism; R65.20 - Severe sepsis without septic shock SNOMED: 47942941 Assessment/Plan vent support resp rx gt feeds sz rx abx per id wound care d/w mother risk and benefits of tap. she is in agreement with tap. Subjective ROS Limited/Unobtainable: Yes Constitutional: Reports: malaise, weakness HEENT: Reports: no symptoms Cardiovascular: Reports: no symptoms Respiratory: Reports: shortness of breath Gastrointestinal/Abdominal: Reports: no symptoms Genitourinary: Reports: no symptoms Neurologic/Psychiatric: Reports: no symptoms Endocrine: Reports: no symptoms Hematologic/Lymphatic: Reports: anemia Allergies: Coded Allergies: No Known Allergies (Unverified , 07/21/16) All Systems: reviewed and negative except above Subjective no events. stable on the vent. poorly responsive. no fever or chills. Objective Last 24 Hour Vital Signs Date Time Temp Pulse Resp B/P (MAP) Pulse Ox O2 Delivery O2 Flow Rate FiO2 10/02/18 12:51 65 16 60 10/02/18 10:53 73 16 60 10/02/18 08:50 77 16 60 10/02/18 08:00 40 10/02/18 08:00 Mechanical Ventilator 10/02/18 08:00 98.2 76 24 106/77 (87) 100 10/02/18 06:55 80 16 60 10/02/18 04:55 79 16 60 40 10/02/18 04:00 98 10/02/18 04:00 99.8 101 24 133/74 (93) 100 10/02/18 04:00 Mechanical Ventilator 10/02/18 04:00 40 10/02/18 03:10 83 16 60 40 10/02/18 02:00 102.1 10/02/18 01:13 100 17 60 40 10/02/18 00:00 Mechanical Ventilator 10/02/18 00:00 40 10/02/18 00:00 103 10/02/18 00:00 100.5 111 18 123/65 (84) 100 10/01/18 22:59 110 24 60 40 10/01/18 22:00 102 24 60 40 10/01/18 20:00 111 10/01/18 20:00 Mechanical Ventilator 10/01/18 20:00 100.0 111 22 133/74 (93) 98 10/01/18 20:00 40 10/01/18 19:22 102 26 60 40 10/01/18 17:10 112 20 60 40 10/01/18 16:00 Mechanical Ventilator 10/01/18 16:00 40 10/01/18 16:00 119 10/01/18 16:00 98.2 101 21 117/74 (88) 95 10/01/18 14:56 98.2 10/01/18 14:50 124 30 60 40 Intake and Output 10/01/18 10/02/18 19:00 07:00 Intake Total 687.5 ml 2425.0 ml Output Total 1750 ml 1000 ml Balance -1062.5 ml 1425.0 ml IV Total 27.5 ml 1765.0 ml Tube Feeding 660 ml 660 ml Output Urine Total 1750 ml 1000 ml # Bowel Movements 1 Height (Feet): 5 Height (Inches): 6.00 Weight (Pounds): 151 General Appearance: WD/WN, confused Cardiovascular: regular rhythm Respiratory/Chest: rhonchi - bilaterally Abdomen: normal bowel sounds, non tender, soft, no organomegaly Edema: no edema noted Arm (L), no edema noted Arm (R), no edema noted Leg (L), no edema noted Leg (R), no edema noted Pedal (L), no edema noted Pedal (R), no edema noted Generalized Akhil Burkett MD Oct 02, 2018 13:40
--- NOTE | 2018-10-02 14:00 | NUR ---
NURSE NOTES: Dr. Burkett, who is covering for Dr. Wakefield, spoke with patient's mother, Mrs. Whitman, regarding risks and benefits of thoracentesis. Mrs. Whitman verbalized understanding and signed consent for thoracentesis. Mrs. Whitman given copy of consent, original consent is in patient's chart. This nurse spoke with Dr. Burkett, Dr. Burkett ordered body fluid cell count, body fluid culture, PT, and PTT for tomorrow AM. Orders entered, noted, and carried out. Will continue to monitor patient.
[2018-10-02 16:00] VITALS: BP 100/67
[2018-10-02] MEDS ORDERED: Sterile Water Irrig 1000ml IRRIG ONE (17:25)
--- NOTE | 2018-10-02 19:30 | NUR ---
HAND-OFF: Report given PASHA West.
--- NOTE | 2018-10-02 19:31 | NUR ---
NURSE NOTES: Report received from PASHA Roland. Pt obtunded, non-verbal, opens eyes spontaneously. pointer helper shows ST. Pt trach to vent dependent with portex 9. Ventilator settings: AC16, VT600 XdB216 PEEP5. Tolerating settings well. Shows no signs of cardiac or respiratory distress. Condom catheter present and draining well. Accuchecks are Q6H. See WCP for skin alterations. Pt has a LH22g and a RFA20g with NS @ 100 ml/hr. Seizure precautions are set, side rails padded, bed alarms placed, bed in lowest position. Call light within reach. Will continue to monitor and with patients plan of care.
[2018-10-02 20:00] VITALS: BP 151/69
[2018-10-03] VITALS: BP 113/71
[2018-10-03] MEDS: NovoLOG Insulin Flexpen SUBQ SCH ×5 (01:33→23:38)
[2018-10-03] MEDS: Piperacillin/Tazobactam 3.375 GM in NS 110 ML IVPB SCH ×3 (03:49→19:45)
[2018-10-03 04:00] VITALS: BP 130/56
[2018-10-03 06:10] LABS: HEMATOCRIT 23.1 % (42.0-52.0); HEMOGLOBIN 7.4 G/DL (14.2-18.0); MEAN CORPUSCULAR VOLUME 99 FL (80-99); PLATELET COUNT 528 K/UL (150-450); RED BLOOD COUNT 2.34 M/UL (4.70-6.10); RED CELL DISTRIBUTION WIDTH 16.4 % (11.6-14.8); WHITE BLOOD COUNT 6.9 K/UL (4.8-10.8)
[2018-10-03 08:00] VITALS: BP 98/62
--- NOTE | 2018-10-03 08:07 | General Progress Note ---
Assessment/Plan Assessment/Plan IMPRESSION anemia agitation seizures tachycardia leukocytosis respiratory failure trach gt PLAN tap epogen snf meds antibiotics ID clearance seizure precautions dc to snf possibly today mother refusing transfusion impression, plan, and exam edited and reviewed in detail care discussed with RN Subjective ROS Limited/Unobtainable: Yes Allergies: Coded Allergies: No Known Allergies (Unverified , 07/21/16) Subjective cultures noted plan for tap Objective Last 24 Hour Vital Signs Date Time Temp Pulse Resp B/P (MAP) Pulse Ox O2 Delivery O2 Flow Rate FiO2 10/03/18 07:23 61 16 60 10/03/18 05:00 71 16 60 10/03/18 04:00 Mechanical Ventilator 10/03/18 04:00 98.2 65 16 130/56 (80) 100 10/03/18 04:00 60 10/03/18 04:00 74 10/03/18 02:51 67 17 60 10/03/18 01:12 69 16 Mechanical Ventilator 60 10/03/18 01:10 65 16 60 10/03/18 00:00 60 10/03/18 00:00 Mechanical Ventilator 10/03/18 00:00 98.6 70 18 113/71 (85) 100 10/03/18 00:00 94 10/02/18 23:44 77 18 60 10/02/18 20:54 83 18 60 10/02/18 20:00 99.0 108 24 151/69 (96) 92 10/02/18 20:00 60 10/02/18 20:00 Mechanical Ventilator 10/02/18 20:00 74 10/02/18 19:02 62 16 60 10/02/18 16:46 63 16 60 10/02/18 16:00 97.5 63 21 100/67 (78) 100 10/02/18 16:00 Mechanical Ventilator 10/02/18 16:00 67 10/02/18 16:00 40 10/02/18 14:55 68 16 60 10/02/18 12:51 65 16 60 10/02/18 12:00 Mechanical Ventilator 10/02/18 12:00 98.4 85 22 114/68 (83) 100 10/02/18 12:00 40 10/02/18 12:00 72 10/02/18 10:53 73 16 60 10/02/18 08:50 77 16 60 Intake and Output 10/02/18 10/03/18 19:00 07:00 Intake Total 885 ml 1577.0 ml Output Total 700 ml Balance 185 ml 1577.0 ml Free Water 225 ml IV Total 1022.0 ml Tube Feeding 660 ml 495 ml Blood Product 60 ml Output Urine Total 700 ml # Voids 1 # Bowel Movements 3 1 Laboratory Tests 10/03/18 03:45: White Blood Count 6.9, Red Blood Count 2.34L, Hemoglobin 7.4L, Hematocrit 23.1L , Mean Corpuscular Volume 99, Mean Corpuscular Hemoglobin 31.8H, Mean Corpuscular Hemoglobin Concent 32.2, Red Cell Distribution Width 16.4H, Platelet Count 528H, Mean Platelet Volume 5.5L, Neutrophils (%) (Auto) , Lymphocytes (%) (Auto) , Monocytes (%) (Auto) , Eosinophils (%) (Auto) , Basophils (%) (Auto) , Neutrophils % (Manual) [Pending], Lymphocytes % (Manual) [Pending], Platelet Estimate [Pending], Platelet Morphology [Pending], Prothrombin Time [Pending], Prothromb Time International Ratio [Pending], Activated Partial Thromboplast Time [Pending] Height (Feet): 5 Height (Inches): 6.00 Weight (Pounds): 151 Objective WDWN NAD trach reduced breath sounds bilaterally without rhonchi or wheeze [id number] without MRG NABS nontender Gt no CCE contractures nonfocal Andres Wakefield MD Oct 03, 2018 08:07
[2018-10-03 08:12] LABS: INR 1.1 (0.9-1.1)
[2018-10-03] MEDS: Aspirin Baby 81mg GT SCH (08:18)
[2018-10-03] MEDS: Docusate 100mg/10ml Liq GT SCH (09:20)
[2018-10-03] MEDS: Valproic Acid 250mg/5ml Liquid GT SCH ×2 (09:21→20:40)
[2018-10-03] MEDS: Ferrous Sulfate 300 MG/5 ML UDC GT SCH ×2 (09:21→20:40)
[2018-10-03] MEDS: Fluconazole 100mg tab GT SCH (09:22)
[2018-10-03] MEDS: carBAMazepine 200mg tab GT SCH ×2 (09:22→20:39)
--- NOTE | 2018-10-03 10:53 | Infectious Diseases Prog Note ---
Assessment/Plan Assessment/Plan antibiotics : zosyn, fluconazole A 1. fungal UTI 2. + blood cultures with coag neg staph likely contaminated 3. leucocytosis resolved 4. respiratory failure P 1. continue zosyn, fluconazole 2. sputum culture 3. will follow up cultures Subjective ROS Limited/Unobtainable: Yes Allergies: Coded Allergies: No Known Allergies (Unverified , 07/21/16) Objective Vital Signs Last 24 Hour Vital Signs Date Time Temp Pulse Resp B/P (MAP) Pulse Ox O2 Delivery O2 Flow Rate FiO2 10/03/18 09:31 62 16 60 10/03/18 08:00 Mechanical Ventilator 10/03/18 08:00 60 10/03/18 08:00 97.7 61 16 98/62 (74) 100 10/03/18 07:23 61 10/03/18 07:23 61 16 60 10/03/18 05:00 71 16 60 10/03/18 04:00 Mechanical Ventilator 10/03/18 04:00 98.2 65 16 130/56 (80) 100 10/03/18 04:00 60 10/03/18 04:00 74 10/03/18 02:51 67 17 60 10/03/18 01:12 69 16 Mechanical Ventilator 60 10/03/18 01:10 65 16 60 10/03/18 00:00 60 10/03/18 00:00 Mechanical Ventilator 10/03/18 00:00 98.6 70 18 113/71 (85) 100 10/03/18 00:00 94 10/02/18 23:44 77 18 60 10/02/18 20:54 83 18 60 10/02/18 20:00 99.0 108 24 151/69 (96) 92 10/02/18 20:00 60 10/02/18 20:00 Mechanical Ventilator 10/02/18 20:00 74 10/02/18 19:02 62 16 60 10/02/18 16:46 63 16 60 10/02/18 16:00 97.5 63 21 100/67 (78) 100 10/02/18 16:00 Mechanical Ventilator 10/02/18 16:00 67 10/02/18 16:00 40 10/02/18 14:55 68 16 60 10/02/18 12:51 65 16 60 10/02/18 12:00 Mechanical Ventilator 10/02/18 12:00 98.4 85 22 114/68 (83) 100 10/02/18 12:00 40 10/02/18 12:00 72 10/02/18 10:53 73 16 60 Height (Feet): 5 Height (Inches): 6.00 Weight (Pounds): 151 HEENT: status post trach Respiratory/Chest: lungs clear Cardiovascular: normal rate, regular rhythm, no gallop/murmur Abdomen: soft, non tender, other - GT Extremities: no edema Laboratory Tests Test 10/03/18 03:45 White Blood Count 6.9 K/UL (4.8-10.8) Red Blood Count 2.34 M/UL (4.70-6.10) L Hemoglobin 7.4 G/DL (14.2-18.0) L Hematocrit 23.1 % (42.0-52.0) L Mean Corpuscular Volume 99 FL (80-99) Mean Corpuscular Hemoglobin 31.8 PG (27.0-31.0) H Mean Corpuscular Hemoglobin Concent 32.2 G/DL (32.0-36.0) Red Cell Distribution Width 16.4 % (11.6-14.8) H Platelet Count 528 K/UL (150-450) H Mean Platelet Volume 5.5 FL (6.5-10.1) L Neutrophils (%) (Auto) % (45.0-75.0) Lymphocytes (%) (Auto) % (20.0-45.0) Monocytes (%) (Auto) % (1.0-10.0) Eosinophils (%) (Auto) % (0.0-3.0) Basophils (%) (Auto) % (0.0-2.0) Differential Total Cells Counted 100 Neutrophils % (Manual) 45 % (45-75) Lymphocytes % (Manual) 38 % (20-45) Monocytes % (Manual) 4 % (1-10) Eosinophils % (Manual) 5 % (0-3) H Basophils % (Manual) 0 % (0-2) Band Neutrophils 8 % (0-8) Platelet Estimate Adequate Platelet Morphology Normal Red Blood Cell Morphology Normal Prothrombin Time 11.8 SEC (9.30-11.50) H Prothromb Time International Ratio 1.1 (0.9-1.1) Activated Partial Thromboplast Time 36 SEC (23-33) H Current Medications Medications (Trade) Dose Ordered Sig/Guillermo Route PRN Reason Start Time Stop Time Status Last Admin Dose Admin Acetaminophen (Tylenol) 650 mg Q4H PRN GT Mild Pain/Temp > 100.5 09/28/18 19:00 10/28/18 05:14 10/01/18 12:34 Aspirin (ASA) 81 mg DAILY GT 09/28/18 09:00 10/28/18 08:59 10/02/18 09:36 Carbamazepine (TEGretol) 600 mg Q12HR GT 09/30/18 21:00 10/28/18 08:59 10/03/18 09:22 Dextrose (Dextrose 50%) 25 ml Q30M PRN IV Hypoglycemia 09/28/18 06:00 10/28/18 05:59 Dextrose (Dextrose 50%) 50 ml Q30M PRN IV Hypoglycemia 09/28/18 06:00 10/28/18 05:59 Docusate Sodium (Colace) 100 mg DAILY GT 09/29/18 09:00 10/28/18 08:59 10/03/18 09:20 Epoetin Grabiel (Epoetin Grabiel-EPBX(NON ESRD)) 10,000 unit WED-WED-WED SUBQ 09/28/18 21:00 10/28/18 20:59 09/30/18 21:11 Ferrous Sulfate (Feosol) 325 mg BID GT 09/28/18 09:00 10/28/18 08:59 10/03/18 09:21 Fluconazole (Diflucan) 200 mg DAILY GT 09/29/18 12:30 10/06/18 12:29 10/03/18 09:22 Insulin Aspart (NovoLOG) Q6HR SUBQ 09/28/18 18:00 10/28/18 17:59 10/03/18 05:20 Levetiracetam (Keppra) 500 mg EVERY 12 HOURS GT 09/28/18 09:00 10/28/18 08:59 10/03/18 09:22 Lorazepam (Ativan 2mg/ml 1ml) 1 mg Q2H PRN IV For Seizures 09/28/18 05:15 10/05/18 05:14 10/01/18 13:44 Magnesium Hydroxide (Mom) 30 ml DAILY PRN GT Constipation 09/28/18 05:45 10/28/18 05:44 Midodrine (Pro-Amatine) 2.5 mg THREE TIMES A DAY GT 09/28/18 09:00 10/28/18 08:59 10/03/18 09:22 Piperacillin Sod/ Tazobactam Sod 3.375 gm/Sodium Chloride 110 ml @ 27.5 mls/hr Q8HR@0400,1200,2000 IVPB 09/28/18 20:00 10/05/18 19:59 10/03/18 03:49 Sodium Chloride 1,000 ml @ 100 mls/hr Q10H IV 09/28/18 06:00 10/28/18 05:59 10/03/18 05:00 Valproic Acid (Depakene) 1,200 mg Q12HR GT 09/30/18 21:00 10/28/18 08:59 10/03/18 09:21 Tracie Isaac MD Oct 03, 2018 10:53
[2018-10-03 12:00] VITALS: BP 129/83
--- NOTE | 2018-10-03 12:03 | NUR ---
RD ASSESSMENT & RECOMMENDATIONS SEE CARE ACTIVITY FOR COMPLETE ASSESSMENT DAILY ESTIMATED NEEDS: Needs based on Underwt, wound, Critical care (63kg) 25-30 kcals/kg 7065-7890 total kcals 1.25-2 g protein/kg 79-126 g total protein 25-30 mL/kg 1383-3873 total fluid mLs NUTRITION DIAGNOSIS: 1) Increased kcal, prot, needs R/T sepsis, underweight status as evidenced by pt w/ elev WBC, tmax of 101.0 -> now afebrile, pt w/ BMI 17.0, 69% IBW. 2) Difficulty swallowing R/T resp status as evidenced by pt vent dependent via trach w/PEG. 3) Altered nutrition related lab values R/T h/o DM, uncontrolled BGs as evidenced by POC glu ([phone]). CURRENT TF:Glucerna 1.2 @ 55ml/hr x 24 hrs ENTERAL NUTRITION RECOMMENDATIONS: Glucerna 1.2 @ 55ml/hr x 24 hrs to provide 1320ml, 1584kcal, 79g prot, 1063ml free water * Maintain current TF * HOB >30 degrees/H20 flush per MD ADDITIONAL RECOMMENDATIONS: 1) PER SNF (09/07/18) pt is: 6'4" tall and 139# (63.2kg) 2) Wound care: Marcelino 1 pkt BID 3) Monitor lytes, need for TF change 4) Weekly calibrated bed scale wts 5) Rec long acting insulin for improved BG control
--- NOTE | 2018-10-03 13:24 | NUR ---
[employer] Clerk SI:RESP FAILURE TRACH/VENT DEPENDENT,SEPSIS VS: BP 98/62, P 61, T 97.7, RR 16, SpO2 100 on Mechanical Vent FiO2 60 Eosinophils 5, PT 11.8, Hemoglobin 6.9, Urine Protein 2+, Urine Blood 2+, Urine WBC 40-60 CXR IMPRESSION: Interval development of extensive opacification of the left hemithorax. Suspect a combination of pleural fluid and atelectasis/consolidation. IS:Piperacillin Sod 27.5cc/hr Epoetin Grabiel Valproic Acid Carbamazepine SDU Status
[2018-10-03 16:00] VITALS: BP 105/64
--- NOTE | 2018-10-03 19:05 | NUR ---
CLINICALS HAVE BEEN FAXED TO: [email or web address] FAX F/S AND CLINICALS TO F:[phone]
--- NOTE | 2018-10-03 19:35 | NUR ---
HAND-OFF: Report given to PASHA Mendiola.
--- NOTE | 2018-10-03 19:50 | NUR ---
NURSE NOTES: PATIENT OPEN EYES, OBTUNDED, ON TRAC TO VENT, AC 16/ TV 600/ FIO2 50% /PEEP 5, O2 SATURATION 100% NOTED, ABDOMEN SOFT, NO BOWEL MOVEMENT, G TUBE INTACT AND PATENT, RESIDUE 120ML OUTED, HOLD FEEDING PER PROTOCOLS, ON GLUCERNA 1.2 AT 55ML/HR, KEPT OB OVER 30 DEGREE, CONDOM CATH LEAKED, REPLACED AND SECURED, YELLOW URINE OUTED, PERIPHERAL LINE TO RIGHT ARM 20G LEAKED AND LEFT HAND 22G OCCLUDED THAT REMOVED BOTH LINE, INSERTED 22G TO LEFT WRIST, ONGOING NS AT 100ML/HR, ON QUARTET BED, KEPT SZ AND ASPIRATION PRECAUTION, MADE LOWER BED POSITION, PROVIDED CALL LIGHT WITHIN REACH, WILL CONTINUE TO MONITOR.
[2018-10-03 20:00] VITALS: BP 107/70
[2018-10-03] MEDS: Epoetin Alfa-EPBX (NON ESRD)10,000 unit/ml vial SUBQ SCH (20:39)
--- NOTE | 2018-10-03 22:20 | NUR ---
NURSE NOTES: PATIENT SLEEPING STATUS AT THIS TIME.
[2018-10-04] VITALS: BP 112/74
--- NOTE | 2018-10-04 00:25 | NUR ---
NURSE NOTES: REPOSITIONED, ORAL CARE WAS DONE, ASLEEP STATUS, WILL CONTINUE TO MONITOR.
--- NOTE | 2018-10-04 03:40 | NUR ---
NURSE NOTES: OBTAINED SPUTUM SPECIMEN, WILL SEND TO LAB.
[2018-10-04] MEDS: Piperacillin/Tazobactam 3.375 GM in NS 110 ML IVPB SCH (03:44)
[2018-10-04 04:00] VITALS: BP 120/70
--- NOTE | 2018-10-04 04:00 | NUR ---
NURSE NOTES: MORNING CARE AND ORAL CARE WAS DONE, NO BOWEL MOVEMENT.
[2018-10-04] MEDS: NovoLOG Insulin Flexpen SUBQ SCH ×4 (05:38→23:46)
--- NOTE | 2018-10-04 06:10 | NUR ---
NURSE NOTES: NO ACUTE DISTRESS NOTED AT THIS SHIFT.
--- NOTE | 2018-10-04 06:50 | NUR ---
RESPIRATORY NOTE: Patient received mechanically ventilated on PB 840 with current ordered vent settings: AC 16-600ml-50%FiO2- peep 5. Patient has trach size Portex #9.0 cuffed that is secure with a trach tie and guard. There are bilateral rhonchi diminished breath sounds noted upon auscultation. Sxn small amount to thick white benitez yellow secretions without incident. Vent alarms are functional and audible. There is am an ambu bag available at the bedside and the vent is connected to a red outlet. Patient appears comfortable at this time. No SOB or resp distress noted. Will continue to monitor.
--- NOTE | 2018-10-04 07:28 | NUR ---
HAND-OFF: Report given to PASHA GEORGE.
--- NOTE | 2018-10-04 07:29 | NUR ---
NURSE NOTES: Received patient in bed. In no apparent distress. Vent dependent. Condom cath inplace. Contact isolation observed. Will continue plan of care.
[2018-10-04 08:00] VITALS: BP 117/70
--- NOTE | 2018-10-04 08:17 | General Progress Note ---
Assessment/Plan Assessment/Plan IMPRESSION anemia agitation seizures tachycardia leukocytosis respiratory failure trach gt PLAN epogen snf meds antibiotics ID clearance seizure precautions dc to snf possibly today- pending cxr follow up mother refusing transfusion impression, plan, and exam edited and reviewed in detail care discussed with RN Subjective ROS Limited/Unobtainable: Yes Allergies: Coded Allergies: No Known Allergies (Unverified , 07/21/16) Subjective cultures noted plan for tap Objective Last 24 Hour Vital Signs Date Time Temp Pulse Resp B/P (MAP) Pulse Ox O2 Delivery O2 Flow Rate FiO2 10/04/18 06:50 64 18 50 10/04/18 04:50 67 17 50 10/04/18 04:00 Mechanical Ventilator 10/04/18 04:00 97.7 69 17 120/70 (87) 100 10/04/18 04:00 78 10/04/18 04:00 50 10/04/18 03:28 61 19 50 10/04/18 01:25 60 19 50 10/04/18 00:30 61 10/04/18 00:00 50 10/04/18 00:00 Mechanical Ventilator 10/04/18 00:00 98.0 65 17 112/74 (87) 100 10/03/18 23:14 65 16 50 10/03/18 21:39 84 17 50 10/03/18 20:00 Mechanical Ventilator 10/03/18 20:00 50 10/03/18 20:00 98.2 73 16 107/70 (82) 100 10/03/18 20:00 70 10/03/18 19:16 70 16 50 10/03/18 17:25 71 16 50 10/03/18 16:00 60 10/03/18 16:00 Mechanical Ventilator 10/03/18 16:00 97.8 65 16 105/64 (78) 100 10/03/18 15:43 64 10/03/18 15:03 68 16 60 10/03/18 13:00 71 16 60 10/03/18 12:00 Mechanical Ventilator 10/03/18 12:00 97.5 81 16 129/83 (98) 100 10/03/18 12:00 60 10/03/18 11:52 65 10/03/18 10:52 65 16 60 10/03/18 09:31 62 16 60 Intake and Output 10/03/18 10/04/18 19:00 07:00 Intake Total 447.5 ml 2029.5 ml Output Total 600 ml Balance 447.5 ml 1429.5 ml IV Total 337.5 ml 1379.5 ml Tube Feeding 110 ml 550 ml Other 100 ml Output Urine Total 600 ml # Bowel Movements 1 Height (Feet): 5 Height (Inches): 6.00 Weight (Pounds): 151 Objective WDWN NAD trach reduced breath sounds bilaterally without rhonchi or wheeze [id number] without MRG NABS nontender Gt no CCE contractures nonfocal Andres Wakefield MD Oct 04, 2018 08:17
[2018-10-04] MEDS: Aspirin Baby 81mg GT SCH (09:00)
[2018-10-04] MEDS: Ferrous Sulfate 300 MG/5 ML UDC GT SCH ×2 (09:04→20:36)
[2018-10-04] MEDS: Docusate 100mg/10ml Liq GT SCH (09:04)
[2018-10-04] MEDS: Fluconazole 100mg tab GT SCH (09:04)
[2018-10-04] MEDS: carBAMazepine 200mg tab GT SCH ×2 (09:04→20:36)
[2018-10-04] MEDS: levETIRAcetam 500mg/5ml Liquid GT SCH ×2 (09:04→20:36)
[2018-10-04] MEDS: Valproic Acid 250mg/5ml Liquid GT SCH ×2 (09:05→20:35)
--- NOTE | 2018-10-04 09:09 | NUR ---
RADIOLOGY DEPT CHEST X-RAY DONE.-P.DYE
--- NOTE | 2018-10-04 10:46 | Diagnostic Imaging Report ---
Indication: Dyspnea Technique: One view of the chest Comparison: 10/01/2018 Findings: Tracheostomy remains. Opacification of the left hemithorax is probably mostly due to left lower lobe atelectasis, as there is suggestion of slight leftward mediastinal shift and cut off of the left mainstem bronchus. However, there may also be a component of pleural fluid. Right lung and pleural space remain clear. Findings are unchanged Impression: Left lung opacification, unchanged from 10/01/2018. Suspect mostly on the basis of left lower lobe atelectasis, although there may be a component of pleural fluid as well
--- NOTE | 2018-10-04 10:59 | Pre-Procedure Note/Attestation ---
Pre-Procedure Note/Attestation Complete Prior to Procedure Planned Procedure: left Procedure Narrative: thoracentesis Indications for Procedure Pre-Operative Diagnosis: Pleural effusion Attestation I attest that I discussed the nature of the procedure; its benefits; risks and complications; and alternatives (and the risks and benefits of such alternatives ), prior to the procedure, with the patient (or the patient's legal communications representative). I attest that, if there was a reasonable possibility of needing a blood transfusion, the patient (or the patient's legal communications representative) was given the [facility] standardized written summary, pursuant to the Jeffery [place] Blood Safety Act ([place] Health and Safety Code # 1645, as amended). I attest that I re-evaluated the patient just prior to the surgery and that there has been no change in the patient's H&P, except as documented below: Discussed by phone with pt's. mother at approximately 0930 a.m. on 10/04/2018 Jd Guadalupe MD Oct 04, 2018 10:59
--- NOTE | 2018-10-04 11:21 | Infectious Diseases Prog Note ---
Assessment/Plan Assessment/Plan antibiotics : zosyn, fluconazole A 1. fungal UTI 2. + blood cultures with coag neg staph likely contaminated 3. leucocytosis resolved 4. respiratory failure P 1. continue fluconazole 1 more day 2. d/c zosyn 3. will follow up cultures Subjective ROS Limited/Unobtainable: Yes Allergies: Coded Allergies: No Known Allergies (Unverified , 07/21/16) Objective Vital Signs Last 24 Hour Vital Signs Date Time Temp Pulse Resp B/P (MAP) Pulse Ox O2 Delivery O2 Flow Rate FiO2 10/04/18 10:32 65 17 50 10/04/18 08:55 68 18 50 10/04/18 08:00 50 10/04/18 08:00 97.2 69 18 117/70 (86) 100 10/04/18 07:23 71 10/04/18 06:50 64 18 50 10/04/18 04:50 67 17 50 10/04/18 04:00 Mechanical Ventilator 10/04/18 04:00 97.7 69 17 120/70 (87) 100 10/04/18 04:00 78 10/04/18 04:00 50 10/04/18 03:28 61 19 50 10/04/18 01:25 60 19 50 10/04/18 00:30 61 10/04/18 00:00 50 10/04/18 00:00 Mechanical Ventilator 10/04/18 00:00 98.0 65 17 112/74 (87) 100 10/03/18 23:14 65 16 50 10/03/18 21:39 84 17 50 10/03/18 20:00 Mechanical Ventilator 10/03/18 20:00 50 10/03/18 20:00 98.2 73 16 107/70 (82) 100 10/03/18 20:00 70 10/03/18 19:16 70 16 50 10/03/18 17:25 71 16 50 10/03/18 16:00 60 10/03/18 16:00 Mechanical Ventilator 10/03/18 16:00 97.8 65 16 105/64 (78) 100 10/03/18 15:43 64 10/03/18 15:03 68 16 60 10/03/18 13:00 71 16 60 10/03/18 12:00 Mechanical Ventilator 10/03/18 12:00 97.5 81 16 129/83 (98) 100 10/03/18 12:00 60 10/03/18 11:52 65 Height (Feet): 5 Height (Inches): 6.00 Weight (Pounds): 151 HEENT: status post trach Respiratory/Chest: lungs clear Cardiovascular: normal rate, regular rhythm, no gallop/murmur Abdomen: soft, non tender, other - GT Extremities: no edema Current Medications Medications (Trade) Dose Ordered Sig/Guillermo Route PRN Reason Start Time Stop Time Status Last Admin Dose Admin Acetaminophen (Tylenol) 650 mg Q4H PRN GT Mild Pain/Temp > 100.5 09/28/18 19:00 10/28/18 05:14 10/01/18 12:34 Aspirin (ASA) 81 mg DAILY GT 09/28/18 09:00 10/28/18 08:59 10/02/18 09:36 Carbamazepine (TEGretol) 600 mg Q12HR GT 09/30/18 21:00 10/28/18 08:59 10/04/18 09:04 Dextrose (Dextrose 50%) 25 ml Q30M PRN IV Hypoglycemia 09/28/18 06:00 10/28/18 05:59 Dextrose (Dextrose 50%) 50 ml Q30M PRN IV Hypoglycemia 09/28/18 06:00 10/28/18 05:59 Docusate Sodium (Colace) 100 mg DAILY GT 09/29/18 09:00 10/28/18 08:59 10/04/18 09:04 Epoetin Grabiel (Epoetin Grabiel-EPBX(NON ESRD)) 10,000 unit WED-WED-WED SUBQ 09/28/18 21:00 10/28/18 20:59 10/03/18 20:39 Ferrous Sulfate (Feosol) 300 mg EVERY 12 HOURS GT 10/03/18 21:00 10/28/18 08:59 10/04/18 09:04 Fluconazole (Diflucan) 200 mg DAILY GT 09/29/18 12:30 10/06/18 12:29 10/04/18 09:04 Insulin Aspart (NovoLOG) Q6HR SUBQ 09/28/18 18:00 10/28/18 17:59 10/04/18 05:38 Levetiracetam (Keppra) 500 mg Q12HR GT 10/04/18 09:00 11/03/18 08:59 10/04/18 09:04 Lorazepam (Ativan 2mg/ml 1ml) 1 mg Q2H PRN IV For Seizures 09/28/18 05:15 10/05/18 05:14 10/01/18 13:44 Magnesium Hydroxide (Mom) 30 ml DAILY PRN GT Constipation 09/28/18 05:45 10/28/18 05:44 Midodrine (Pro-Amatine) 2.5 mg THREE TIMES A DAY GT 09/28/18 09:00 10/28/18 08:59 10/04/18 09:04 Piperacillin Sod/ Tazobactam Sod 3.375 gm/Sodium Chloride 110 ml @ 27.5 mls/hr Q8HR@0400,1200,2000 IVPB 09/28/18 20:00 10/05/18 19:59 10/04/18 03:44 Sodium Chloride 1,000 ml @ 100 mls/hr Q10H IV 09/28/18 06:00 10/28/18 05:59 10/04/18 01:58 Valproic Acid (Depakene) 1,200 mg Q12HR GT 09/30/18 21:00 10/28/18 08:59 10/04/18 09:05 Tracie Isaac MD Oct 04, 2018 11:21
[2018-10-04 12:00] VITALS: BP 121/72
--- NOTE | 2018-10-04 12:30 | NUR ---
NURSE NOTES: java tech lead and Dr. Henao at bedside. Checked patient, and Dr. Henao that patient is not candidate for thoracentesis. Patient's family made aware.
--- NOTE | 2018-10-04 15:14 | Diagnostic Imaging Report ---
Indication: Left pleural effusion Technique: Grayscale images of the left chest Comparison: none Findings: Grayscale images in anticipation of thoracentesis demonstrated thin rim of pleural fluid, measuring approximately 1 cm thick. Deep to it is fairly extensive consolidated lung Impression: Only a small amount of pleural fluid is present, insufficient to justify therapeutic thoracentesis. Amount also suboptimal for safe diagnostic thoracentesis. This was discussed with referring physician Dr. Wakefield, who concurred with aborting the requested thoracentesis
--- NOTE | 2018-10-04 15:42 | NUR ---
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 Suspect mostly on the basis of left lower lobe atelectasis, although there may be a component of pleural fluid as well IS:Epoetin Grabiel Valproic Acid Carbamazepine Keppra Fluconazole SDU STATUS
[2018-10-04 16:00] VITALS: BP 110/69
--- NOTE | 2018-10-04 19:15 | NUR ---
HAND-OFF: Report given to PASHA Lamb.
--- NOTE | 2018-10-04 19:30 | NUR ---
NURSE NOTES: Recvd.on a vent.TRACHE,see settings.Lungs scatt.Rh.Diminished BS at bases.Sat.100%.suctioned Tk.beige sec.NS Lavaged.See V/S.Scope SR.Pos.chg.Does'nt Folows command.Flaccid Lower ext.Contracted (R) upper ext.Gt-Feeding in progress.IV Thera.infusing C/cath intact diuresis well.
[2018-10-04 20:00] VITALS: BP 123/82
--- NOTE | 2018-10-04 22:00 | NUR ---
NURSE NOTES: HS care rendered.Pos. chg.Backrub with Lotion.Suctioned.NS Lavaged.Sat-99-100%.Due meds admin.Cont.GT-Feeding.IV Therapy remain in progress.See I/O.
[2018-10-05] VITALS: BP 124/78
--- NOTE | 2018-10-05 00:10 | NUR ---
NURSE NOTES: FSBS-342,covered.Pos. chg.Suctioned copious amt.tk.beige/yellowish sec.NS Lavaged.
[2018-10-05 04:00] VITALS: BP 111/74
--- NOTE | 2018-10-05 04:00 | NUR ---
NURSE NOTES: c/cath.leaks.Replaced.Josef Doe chg.Azalea.GT-Feeding.See I/O.[place].vent.settings.Cont.Plan of care.
[2018-10-05] MEDS: NovoLOG Insulin Flexpen SUBQ SCH ×4 (06:31→23:35)
--- NOTE | 2018-10-05 07:23 | NUR ---
RESPIRATORY NOTE: received pt on vent, trach dependent pt with size portex 9, secured via trach tie/guard. no resp distress noted at this time. pt presents large amounts of pale-yellow secretions when sxn. vent settings are current and followed through. vent is plugged into red outlet with alarms on and audible. ambu bag at bedside. will cont to monitor
--- NOTE | 2018-10-05 07:30 | NUR ---
HAND-OFF: Report given to PASHA MCCAULEY.
--- NOTE | 2018-10-05 07:33 | NUR ---
NURSE NOTES: Patient received in bed, eyes spontaneously, obtunded. On trach to vent: AC- 16, TV- 600, FiO2- 505, PEEP-5, respirations even and unlabored. No non-verbal signs of pain at this time. On tube feeding Glucerna 1.2 at 55ml/hr, no residual, HOB elevated for aspiration precaution. Left hand IV running NS at 100 ml/hr. Condom catheter in place, draining to gravity Sinus Rhythm on the monitor, rate of 60s. Safety measures implemented, seizure precaution.
[2018-10-05 08:00] VITALS: BP 113/78
[2018-10-05] MEDS: levETIRAcetam 500mg/5ml Liquid GT SCH ×2 (09:09→20:23)
[2018-10-05] MEDS: Valproic Acid 250mg/5ml Liquid GT SCH ×2 (09:09→20:24)
[2018-10-05] MEDS: Docusate 100mg/10ml Liq GT SCH (09:09)
[2018-10-05] MEDS: Fluconazole 100mg tab GT SCH (09:09)
[2018-10-05] MEDS: Ferrous Sulfate 300 MG/5 ML UDC GT SCH ×2 (09:09→20:23)
[2018-10-05] MEDS: carBAMazepine 200mg tab GT SCH ×2 (09:10→20:22)
[2018-10-05] MEDS: Aspirin Baby 81mg GT SCH (09:16)
--- NOTE | 2018-10-05 11:38 | NUR ---
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
[2018-10-05 12:00] VITALS: BP 121/80
--- NOTE | 2018-10-05 12:29 | Infectious Diseases Prog Note ---
Assessment/Plan Assessment/Plan A: 1. Sepsis. 2. Pneumonia/ Pleural effusion 3. Fungal urinary tract infection. 4. Positive blood culture for coagulase-negative Staphylococcus likely contamination. 5. Ventilator-dependent respiratory failure. 6. Severe encephalopathy and vegetative state. 7. Hepatosplenomegaly, fine on previous admission CT scan. 8. Diabetes mellitus. 9. Hypertension. P: Discontinue Fluconazole Observe off antibiotic Subjective ROS Limited/Unobtainable: Yes Allergies: Coded Allergies: No Known Allergies (Unverified , 07/21/16) Objective Vital Signs Last 24 Hour Vital Signs Date Time Temp Pulse Resp B/P (MAP) Pulse Ox O2 Delivery O2 Flow Rate FiO2 10/05/18 12:00 50 10/05/18 12:00 Mechanical Ventilator 10/05/18 12:00 98.3 71 16 121/80 (94) 100 10/05/18 11:50 73 16 35 10/05/18 09:58 71 16 35 10/05/18 08:00 97.4 63 16 113/78 (90) 100 10/05/18 08:00 50 10/05/18 08:00 59 10/05/18 08:00 Mechanical Ventilator 10/05/18 07:21 69 16 35 10/05/18 05:30 72 16 35 10/05/18 04:00 97.0 64 16 111/74 (86) 100 10/05/18 04:00 50 10/05/18 04:00 Mechanical Ventilator 10/05/18 04:00 64 10/05/18 03:30 70 16 35 10/05/18 01:30 74 16 35 10/05/18 00:00 67 10/05/18 00:00 50 10/05/18 00:00 Mechanical Ventilator 10/05/18 00:00 97.7 67 16 124/78 (93) 100 10/04/18 23:25 76 16 35 10/04/18 21:06 63 16 40 10/04/18 20:00 Mechanical Ventilator 10/04/18 20:00 50 10/04/18 20:00 97.0 62 16 123/82 (96) 100 10/04/18 19:50 64 10/04/18 19:27 61 16 50 10/04/18 17:02 64 16 50 10/04/18 16:00 50 10/04/18 16:00 Mechanical Ventilator 10/04/18 16:00 97.2 55 16 110/69 (83) 100 10/04/18 15:41 55 10/04/18 14:44 82 18 50 10/04/18 13:08 87 26 50 Height (Feet): 5 Height (Inches): 6.00 Weight (Pounds): 153 General Appearance: no acute distress HEENT: status post trach Respiratory/Chest: lungs clear, other - on ventilator Cardiovascular: normal rate Abdomen: soft, non tender, other - GT feeding Extremities: no edema Neurologic/Psychiatric: aphasia, other - opens eyes Musculoskeletal: atrophy Microbiology Date/Time Source Procedure Growth Status 10/04/18 03:40 Sputum Gram Stain Pending Resulted 10/04/18 03:40 Sputum Culture - Preliminary Gram Negative Bacillus 1 Resulted Current Medications Medications (Trade) Dose Ordered Sig/Guillermo Route PRN Reason Start Time Stop Time Status Last Admin Dose Admin Acetaminophen (Tylenol) 650 mg Q4H PRN GT Mild Pain/Temp > 100.5 09/28/18 19:00 10/28/18 05:14 10/01/18 12:34 Aspirin (ASA) 81 mg DAILY GT 09/28/18 09:00 10/28/18 08:59 10/05/18 09:16 Carbamazepine (TEGretol) 600 mg Q12HR GT 09/30/18 21:00 10/28/18 08:59 10/05/18 09:10 Dextrose (Dextrose 50%) 25 ml Q30M PRN IV Hypoglycemia 09/28/18 06:00 10/28/18 05:59 Dextrose (Dextrose 50%) 50 ml Q30M PRN IV Hypoglycemia 09/28/18 06:00 10/28/18 05:59 Docusate Sodium (Colace) 100 mg DAILY GT 09/29/18 09:00 10/28/18 08:59 10/05/18 09:09 Epoetin Grabiel (Epoetin Grabiel-EPBX(NON ESRD)) 10,000 unit WED-WED-WED SUBQ 09/28/18 21:00 10/28/18 20:59 10/03/18 20:39 Ferrous Sulfate (Feosol) 300 mg EVERY 12 HOURS GT 10/03/18 21:00 10/28/18 08:59 10/05/18 09:09 Fluconazole (Diflucan) 200 mg DAILY GT 09/29/18 12:30 10/06/18 12:29 10/05/18 09:09 Insulin Aspart (NovoLOG) Q6HR SUBQ 09/28/18 18:00 10/28/18 17:59 10/05/18 06:31 Levetiracetam (Keppra) 500 mg Q12HR GT 10/04/18 09:00 11/03/18 08:59 10/05/18 09:09 Magnesium Hydroxide (Mom) 30 ml DAILY PRN GT Constipation 09/28/18 05:45 10/28/18 05:44 Midodrine (Pro-Amatine) 2.5 mg THREE TIMES A DAY GT 09/28/18 09:00 10/28/18 08:59 10/05/18 09:10 Sodium Chloride 1,000 ml @ 100 mls/hr Q10H IV 09/28/18 06:00 10/28/18 05:59 10/05/18 09:09 Valproic Acid (Depakene) 1,200 mg Q12HR GT 09/30/18 21:00 10/28/18 08:59 10/05/18 09:09 John Elizalde MD Oct 05, 2018 12:29
--- NOTE | 2018-10-05 12:50 | NUR ---
NURSE NOTES: Suctioning provided, copious amount. Condom catheter leaking and out. Replaced condom care. Perineal care provided, partial sheet changed. Heels offloaded. HOB elevated for aspiration precaution.
--- NOTE | 2018-10-05 14:55 | NUR ---
INSURANCE CLINICALS HAVE BEEN FAXED TO: [employer] [facility] FAX F/S AND CLINICALS TO F:[phone]
[2018-10-05 16:00] VITALS: BP 105/79
--- NOTE | 2018-10-05 19:38 | NUR ---
HAND-OFF: Report given to PASHA Zapata.
--- NOTE | 2018-10-05 19:40 | NUR ---
NURSE NOTES: Pt report received from GARRICK PAK, Pt admission date is 09/27/18 from [facility]. no DVT prophylaxis given. pt has a neuro response to opening eyes/ obtunded. PT is R as of now, with a reported resp settings of Trach/ portex 9, AC 16, TV 600, PEEP 5, Fio2 50% saturating at 96% O2. will monitor for as needed suctioning. will monitor urinary out put as pt has a condom cath. Iv site patent and draining. Buttox, sacrum and feet as well as heels will be heavily monitored for pressure ulcers. pt is running a feeding of glucerna 1.2 at 55Ml/Hr. pt appears to be laying down with no distress noted. will continue plan of care.
[2018-10-05 20:00] VITALS: BP 124/77
[2018-10-05] MEDS: Epoetin Alfa-EPBX (NON ESRD)10,000 unit/ml vial SUBQ SCH (20:25)
--- NOTE | 2018-10-05 22:47 | Pulmonology Progress Note ---
Assessment/Plan Assessment/Plan Pulmonary Progress Note Assessment/Plan IMPRESSION anemia agitation seizures tachycardia leukocytosis respiratory failure trach gt PLAN iv hydration epogen snf meds antibiotics ID clearance seizure precautions dc to snf once stable impression, plan, and exam edited and reviewed in detail care discussed with RN Subjective Allergies: Coded Allergies: No Known Allergies (Unverified , 07/21/16) Subjective cultures noted Objective Vital Signs Noted Height (Feet): 5 Height (Inches): 6.00 Weight (Pounds): 151 Objective WDWN NAD trach clear breath sounds bilaterally without rhonchi or wheeze [id number] without MRG NABS nontender Gt no CCE contractures nonfocal Subjective ROS Limited/Unobtainable: No Allergies: Coded Allergies: No Known Allergies (Unverified , 07/21/16) Objective Last 24 Hour Vital Signs Date Time Temp Pulse Resp B/P (MAP) Pulse Ox O2 Delivery O2 Flow Rate FiO2 10/05/18 21:01 67 16 35 35 10/05/18 20:00 Mechanical Ventilator 10/05/18 20:00 50 10/05/18 20:00 98.5 65 20 124/77 (93) 94 10/05/18 19:35 64 10/05/18 19:00 61 16 35 35 10/05/18 17:45 65 16 35 10/05/18 16:00 56 10/05/18 16:00 Mechanical Ventilator 10/05/18 16:00 97.6 68 16 105/79 (88) 100 10/05/18 16:00 50 10/05/18 14:57 98 17 35 10/05/18 13:16 70 17 35 10/05/18 12:00 50 10/05/18 12:00 Mechanical Ventilator 10/05/18 12:00 60 10/05/18 12:00 98.3 71 16 121/80 (94) 100 10/05/18 11:50 73 16 35 10/05/18 09:58 71 16 35 10/05/18 08:00 97.4 63 16 113/78 (90) 100 10/05/18 08:00 50 10/05/18 08:00 59 10/05/18 08:00 Mechanical Ventilator 10/05/18 07:21 69 16 35 10/05/18 05:30 72 16 35 10/05/18 04:00 97.0 64 16 111/74 (86) 100 10/05/18 04:00 50 10/05/18 04:00 Mechanical Ventilator 10/05/18 04:00 64 10/05/18 03:30 70 16 35 10/05/18 01:30 74 16 35 10/05/18 00:00 67 10/05/18 00:00 50 10/05/18 00:00 Mechanical Ventilator 10/05/18 00:00 97.7 67 16 124/78 (93) 100 10/04/18 23:25 76 16 35 Intake and Output 10/04/18 10/05/18 19:00 07:00 Intake Total 1770 ml 2010 ml Output Total 1500 ml 1100 ml Balance 270 ml 910 ml Free Water 100 ml IV Total 850 ml 1200 ml Tube Feeding 660 ml 660 ml Other 260 ml 50 ml Output Urine Total 1500 ml 1100 ml # Bowel Movements 2 3 Microbiology Date/Time Source Procedure Growth Status 10/04/18 03:40 Sputum Gram Stain - Final Resulted 10/04/18 03:40 Sputum Culture - Preliminary Gram Negative Bacillus 1 Resulted Current Medications Medications (Trade) Dose Ordered Sig/Guillermo Route PRN Reason Start Time Stop Time Status Last Admin Dose Admin Acetaminophen (Tylenol) 650 mg Q4H PRN GT Mild Pain/Temp > 100.5 09/28/18 19:00 10/28/18 05:14 10/01/18 12:34 Aspirin (ASA) 81 mg DAILY GT 09/28/18 09:00 10/28/18 08:59 10/05/18 09:16 Carbamazepine (TEGretol) 600 mg Q12HR GT 09/30/18 21:00 10/28/18 08:59 10/05/18 20:22 Dextrose (Dextrose 50%) 25 ml Q30M PRN IV Hypoglycemia 09/28/18 06:00 10/28/18 05:59 Dextrose (Dextrose 50%) 50 ml Q30M PRN IV Hypoglycemia 09/28/18 06:00 10/28/18 05:59 Docusate Sodium (Colace) 100 mg DAILY GT 09/29/18 09:00 10/28/18 08:59 10/05/18 09:09 Epoetin Grabiel (Epoetin Grabiel-EPBX(NON ESRD)) 10,000 unit WED-WED-WED SUBQ 09/28/18 21:00 10/28/18 20:59 10/05/18 20:25 Ferrous Sulfate (Feosol) 300 mg EVERY 12 HOURS GT 10/03/18 21:00 10/28/18 08:59 10/05/18 20:23 Insulin Aspart (NovoLOG) Q6HR SUBQ 09/28/18 18:00 10/28/18 17:59 10/05/18 17:28 Levetiracetam (Keppra) 500 mg Q12HR GT 10/04/18 09:00 11/03/18 08:59 10/05/18 20:23 Magnesium Hydroxide (Mom) 30 ml DAILY PRN GT Constipation 09/28/18 05:45 10/28/18 05:44 Midodrine (Pro-Amatine) 2.5 mg THREE TIMES A DAY GT 09/28/18 09:00 10/28/18 08:59 10/05/18 17:28 Sodium Chloride 1,000 ml @ 100 mls/hr Q10H IV 09/28/18 06:00 10/28/18 05:59 10/05/18 17:28 Valproic Acid (Depakene) 1,200 mg Q12HR GT 09/30/18 21:00 10/28/18 08:59 10/05/18 20:24 Jl Ash MD Oct 05, 2018 22:47
[2018-10-06] VITALS: BP 112/76
[2018-10-06 04:00] VITALS: BP 117/78
[2018-10-06] MEDS: NovoLOG Insulin Flexpen SUBQ SCH (05:26)
--- NOTE | 2018-10-06 07:00 | NUR ---
Received Patient on Vent ACVC RR 16, VT 600, Fio2 35%, PEEP +5. Patient is trached with a cuffed Portex 9 tracheostomy tube, secured with tracheostomy ties. Bilateral rhonchi heard upon auscultation. Suction thick white secretions via tracheostomy as needed. Patient obtundent, lying comfortable in bed. Vent plugged into red outlet. Alarms on and audible. Will continue to monitor the patient throughout the day.
--- NOTE | 2018-10-06 07:20 | NUR ---
NURSE NOTES:RECEIVED REPORT FROM FAYE LABOR RELATIONS CONSULTANT OF NOC SHIFT. RECEIVED PT WITH HOB ELEVATED 45 DEGREE OBTUNDED TRACH TO VENT TOLERATING WELL CURRENTS VENT SETTINGS.DR ROSENBAUM CAME TO SEE THE PT AND ORDER TO D/C PT AT [facility] THIS AM.FULL AM BODY DONE ,WOUND CARE AND PICTURES DONE .A WAITING FOR AMBULANCE LIFE LINE STAFF TO FOREST MANAGEMENT PROFESSOR THE PT.WILL CONT TO MONITOR.
--- NOTE | 2018-10-06 07:32 | NUR ---
HAND-OFF: Report given to STEPHANIE PAK.
[2018-10-06 08:00] VITALS: BP 125/84
--- NOTE | 2018-10-06 08:53 | General Progress Note ---
Assessment/Plan Assessment/Plan IMPRESSION anemia agitation seizures tachycardia leukocytosis respiratory failure trach gt PLAN epogen snf meds antibiotics ID clearance seizure precautions dc to snf mother refusing transfusion impression, plan, and exam edited and reviewed in detail care discussed with RN Subjective ROS Limited/Unobtainable: Yes Allergies: Coded Allergies: No Known Allergies (Unverified , 07/21/16) Subjective cultures noted plan for tap Objective Last 24 Hour Vital Signs Date Time Temp Pulse Resp B/P (MAP) Pulse Ox O2 Delivery O2 Flow Rate FiO2 10/06/18 07:13 69 16 35 10/06/18 04:38 71 16 35 35 10/06/18 04:00 50 10/06/18 04:00 97.6 65 16 117/78 (91) 98 10/06/18 04:00 Mechanical Ventilator 10/06/18 03:32 73 10/06/18 03:01 99 16 35 35 10/06/18 00:54 69 17 35 35 10/06/18 00:02 59 10/06/18 00:00 Mechanical Ventilator 10/06/18 00:00 98.3 74 16 112/76 (88) 100 10/05/18 23:11 63 16 35 35 10/05/18 21:01 67 16 35 35 10/05/18 20:00 Mechanical Ventilator 10/05/18 20:00 50 10/05/18 20:00 98.5 65 20 124/77 (93) 94 10/05/18 19:35 64 10/05/18 19:00 61 16 35 35 10/05/18 17:45 65 16 35 10/05/18 16:00 56 10/05/18 16:00 Mechanical Ventilator 10/05/18 16:00 97.6 68 16 105/79 (88) 100 10/05/18 16:00 50 10/05/18 14:57 98 17 35 10/05/18 13:16 70 17 35 10/05/18 12:00 50 10/05/18 12:00 Mechanical Ventilator 10/05/18 12:00 60 10/05/18 12:00 98.3 71 16 121/80 (94) 100 10/05/18 11:50 73 16 35 10/05/18 09:58 71 16 35 Intake and Output 10/05/18 10/06/18 19:00 07:00 Intake Total 1240 ml 1903 ml Output Total 1400 ml Balance 1240 ml 503 ml Free Water 180 ml 100 ml IV Total 400 ml 1143 ml Tube Feeding 660 ml 660 ml Output Urine Total 1400 ml # Bowel Movements 2 Height (Feet): 5 Height (Inches): 6.00 Weight (Pounds): 153 Objective WDWN NAD trach reduced breath sounds bilaterally without rhonchi or wheeze [id number] without MRG NABS nontender Gt no CCE contractures nonfocal Andres Wakefield MD Oct 06, 2018 08:53
[2018-10-06] MEDS: Aspirin Baby 81mg GT SCH (10:07)
[2018-10-06] MEDS: Ferrous Sulfate 300 MG/5 ML UDC GT SCH (10:07)
[2018-10-06] MEDS: Docusate 100mg/10ml Liq GT SCH (10:07)
[2018-10-06] MEDS: levETIRAcetam 500mg/5ml Liquid GT SCH (10:08)
[2018-10-06] MEDS: carBAMazepine 200mg tab GT SCH (10:08)
[2018-10-06] MEDS: Valproic Acid 250mg/5ml Liquid GT SCH (10:09)
--- NOTE | 2018-10-06 10:19 | Infectious Diseases Prog Note ---
Assessment/Plan Assessment/Plan antibiotics : none A 1. fungal UTI s/p rx 2. + blood cultures with coag neg staph likely contaminated 3. leucocytosis resolved 4. respiratory failure P 1. continue off antibiotics 2. d/c planned Subjective ROS Limited/Unobtainable: Yes Allergies: Coded Allergies: No Known Allergies (Unverified , 07/21/16) Objective Vital Signs Last 24 Hour Vital Signs Date Time Temp Pulse Resp B/P (MAP) Pulse Ox O2 Delivery O2 Flow Rate FiO2 10/06/18 08:55 63 16 35 10/06/18 08:00 73 10/06/18 08:00 50 10/06/18 08:00 Mechanical Ventilator 10/06/18 08:00 98.5 78 16 125/84 (98) 100 10/06/18 07:13 69 16 35 10/06/18 04:38 71 16 35 35 10/06/18 04:00 50 10/06/18 04:00 97.6 65 16 117/78 (91) 98 10/06/18 04:00 Mechanical Ventilator 10/06/18 03:32 73 10/06/18 03:01 99 16 35 35 10/06/18 00:54 69 17 35 35 10/06/18 00:02 59 10/06/18 00:00 Mechanical Ventilator 10/06/18 00:00 98.3 74 16 112/76 (88) 100 10/05/18 23:11 63 16 35 35 10/05/18 21:01 67 16 35 35 10/05/18 20:00 Mechanical Ventilator 10/05/18 20:00 50 10/05/18 20:00 98.5 65 20 124/77 (93) 94 10/05/18 19:35 64 10/05/18 19:00 61 16 35 35 10/05/18 17:45 65 16 35 10/05/18 16:00 56 10/05/18 16:00 Mechanical Ventilator 10/05/18 16:00 97.6 68 16 105/79 (88) 100 10/05/18 16:00 50 10/05/18 14:57 98 17 35 10/05/18 13:16 70 17 35 10/05/18 12:00 50 10/05/18 12:00 Mechanical Ventilator 10/05/18 12:00 60 10/05/18 12:00 98.3 71 16 121/80 (94) 100 10/05/18 11:50 73 16 35 Height (Feet): 5 Height (Inches): 6.00 Weight (Pounds): 153 HEENT: status post trach Respiratory/Chest: lungs clear Cardiovascular: normal rate, regular rhythm, no gallop/murmur Abdomen: soft, non tender, other - GT Extremities: no edema Microbiology Date/Time Source Procedure Growth Status 10/04/18 03:40 Sputum Gram Stain - Final Resulted 10/04/18 03:40 Sputum Culture - Preliminary Gram Negative Bacillus 1 Resulted Current Medications Medications (Trade) Dose Ordered Sig/Guillermo Route PRN Reason Start Time Stop Time Status Last Admin Dose Admin Acetaminophen (Tylenol) 650 mg Q4H PRN GT Mild Pain/Temp > 100.5 09/28/18 19:00 10/28/18 05:14 10/01/18 12:34 Aspirin (ASA) 81 mg DAILY GT 09/28/18 09:00 10/28/18 08:59 10/06/18 10:07 Carbamazepine (TEGretol) 600 mg Q12HR GT 09/30/18 21:00 10/28/18 08:59 10/06/18 10:08 Dextrose (Dextrose 50%) 25 ml Q30M PRN IV Hypoglycemia 09/28/18 06:00 10/28/18 05:59 Dextrose (Dextrose 50%) 50 ml Q30M PRN IV Hypoglycemia 09/28/18 06:00 10/28/18 05:59 Docusate Sodium (Colace) 100 mg DAILY GT 09/29/18 09:00 10/28/18 08:59 10/06/18 10:07 Epoetin Grabiel (Epoetin Grabiel-EPBX(NON ESRD)) 10,000 unit WED-WED-WED SUBQ 09/28/18 21:00 10/28/18 20:59 10/05/18 20:25 Ferrous Sulfate (Feosol) 300 mg EVERY 12 HOURS GT 10/03/18 21:00 10/28/18 08:59 10/06/18 10:07 Insulin Aspart (NovoLOG) Q6HR SUBQ 09/28/18 18:00 10/28/18 17:59 10/06/18 05:26 Levetiracetam (Keppra) 500 mg Q12HR GT 10/04/18 09:00 11/03/18 08:59 10/06/18 10:08 Magnesium Hydroxide (Mom) 30 ml DAILY PRN GT Constipation 09/28/18 05:45 10/28/18 05:44 Midodrine (Pro-Amatine) 2.5 mg THREE TIMES A DAY GT 09/28/18 09:00 10/28/18 08:59 10/06/18 10:07 Sodium Chloride 1,000 ml @ 100 mls/hr Q10H IV 09/28/18 06:00 10/28/18 05:59 10/06/18 03:34 Valproic Acid (Depakene) 1,200 mg Q12HR GT 09/30/18 21:00 10/28/18 08:59 10/06/18 10:09 Tracie Isaac MD Oct 06, 2018 10:19
[2018-10-06] MEDS ORDERED: NS 500ML ONE (11:59)
[2018-10-06] MEDS ORDERED: Sterile Water Irrig 1000ml IRRIG ONE (11:59)
--- NOTE | 2018-10-06 12:00 | NUR ---
NURSE NOTES: REPORT ENDORSED TO JAIME PAK [facility] AND EVER FROM [facility].PT MOTHER AND FAMILY CAME TO SEE THE PT AND NOTIFIED REGARDING PT IS DISCHARGE TO [facility].PT FAMILY AGREE WITH DISCHARGE.PT LEFT THE HOSPITAL ON STABLE CONDITION VIA AMB ULANCE. PLACED A TELEPHONE CALL TO [facility] AND REPORT GIVEN TO MARKUS PAK IN CHARGE.
--- NOTE | 2018-10-07 15:00 | Discharge Summary ---
Discharge Summary Discharge Summary _ DATE OF ADMISSION: 09/27/2018 DATE OF DISCHARGE: 10/06/2018 DISCHARGED BY: Dr. Blaine Wakefield CONSULTANTS: Dr. Tracie Isaac BRIEF HOSPITAL COURSE: Patient is a 43-year-old male, round, on tonic vegetative state, nonverbal, with history of seizure disorder, presented nursing facility due to tachycardia. Patient has history of respiratory failure with trach vent dependent. Heart rate was in the 150s. On evaluation at the ED, patient was tachycardic and was slightly hypotensive. He was given IV fluids and was started on broad-spectrum antibiotic. Blood work showed WBC of 13, hemoglobin 10, hematocrit 31, platelet was 732. Potassium was 5.3, sodium 132, BUN 21, creatinine 1.1. Lactic acid was elevated to 3.8. Troponin was negative. EKG showed sinus tachycardia. Chest x -ray with no acute findings. He was then admitted for evaluation of anemia, agitation, tachycardia and leukocytosis. He was given IV hydration. He was started on Epogen. senior living medications were resumed. He was placed on seizure precautions. ID was consulted. Patient was started empirically on Zosyn. Patient had positive blood culture for coagulase-negative staph, likely contamination, IV vancomycin was discontinued. Urine culture showed yeast. He was started on fluconazole. Chest x-ray showed interim development of extensive opacification of the left hemithorax. On 10/02/2018, patient was scheduled for left chest thoracentesis, however chest ultrasound showed insufficient amount for therapeutic thoracentesis. Hemoglobin dropped to 7.4, hematocrit 23. Family refused blood transfusion. He was given iron supplements. Leukocytosis resolved. Antibiotics were discontinued. Patient was discharged back to [facility]. FINAL DIAGNOSES: Fungal UTI Anemia Agitation Seizure disorder Tachycardia Leukocytosis Respiratory failure Trach status G-tube DISPOSITION: Patient was discharged to a SNF. I have been assigned to complete a discharge summary on this account, I was not involved with the patient's management. Carmen Rodriguez NP Oct 07, 2018 15:00
== END 2018-10-06 12:00 | DRG 501 ==
LOC: EDBD 18:42 → EMR 18:54 → EDBEDREQ 21:15 → ICU 21:30 → EDBEDREQ 22:05 → 2W 09-28 18:47
PROC: 5A1955Z Respiratory Ventilation, Greater than 96 Consecutive Hours (ICD-10-PCS; principal; 2018-09-27)
DX: B37.49 Other urogenital candidiasis (principal); G93.40 Encephalopathy, unspecified; Z99.11 Dependence on respirator [ventilator] status; R40.3 Persistent vegetative state; J96.10 Chronic respiratory failure, unspecified whether with hypoxia or hypercapnia; Z43.0 Encounter for attention to tracheostomy; R16.2 Hepatomegaly with splenomegaly, not elsewhere classified; E87.2 Acidosis; E11.9 Type 2 diabetes mellitus without complications; G40.909 Epilepsy, unspecified, not intractable, without status epilepticus; Z79.4 Long term (current) use of insulin; I10 Essential (primary) hypertension; D64.9 Anemia, unspecified; R45.1 Restlessness and agitation; Z43.1 Encounter for attention to gastrostomy
CPT/HCPCS: 36415; 71045; 76604; 80048; 80053; 80202; 80299; 81003; 82550; 82553; 82962; 83036; 83605; 84484; 85007; 85025; 85610; 85730; 86710; 87040; 87070; 87081; 87086; 87181; 87205; 93005; 93970; 94002; 94003; 94664; 96360; 99291; J1815